=== PATIENT | female | born 1970 | race Caucasian/White ===

== ENCOUNTER → 2016-09-13 | Outpatient (CLI) | payer MEDICARE, MEDICAID ==
[~2016-09-13] MED LIST: /HCTZ25TA PO; /PANT40TA PO; ASPI81TA7 PO; AZAT50TA PO; CETI10TA PO; CITA10TA2 PO; DILA2TAB PO; FEXO60CA PO; KETO10TAB PO; LEVO500T PO; LEVO50TA4 PO; NORT50CA PO; OMEP20CA3 PO; PAME25CA PO; PLAQ200T PO; POTA20TA4 PO; PRED5TAB PO; PROP40TA7 PO; TYLE325T5 PO; VITATAB74 PO; ZIAC2.5T PO
[2016-09-13 16:06] LABS: BASO % 0.2 % (0.0-1.0); EOS # 0.1 K/mm3 (0.0-0.50); EOS % 2.9 % (0.0-3.0); LYMPH # 1.1 K/mm3 (1.5-4.5); MEAN CORPUSCULAR HEMOGLOBIN 27.7 pg (27.0-33.0); MEAN CORPUSCULAR HGB CONC 33.6 g/dl (32.0-36.5); MEAN CORPUSCULAR VOLUME 82.5 fl (80.0-96.0); MONO # 0.3 K/mm3 (0.0-0.8); MONO % 6.2 % (0.0-5.0); NEUTROPHILS # 3.4 K/mm3 (1.8-7.7); RED CELL DISTRIBUTION WIDTH 13.4 % (11.5-14.5); WHITE BLOOD COUNT 4.9 K/mm3 (4.0-10.0)
== END ==
LOC: M LAB 15:31
PROVIDERS: ATTEND Internal Medicine
DX: M32.9 Systemic lupus erythematosus, unspecified (principal)

== ENCOUNTER → 2016-11-08 | Outpatient (CLI) | payer MEDICARE, MEDICAID ==
[~2016-11-08] MED LIST changes: +ISOVUE-370 76% 100ML VIAL (Q9967) As Ordered ONE
--- NOTE | 2016-11-08 16:28 | REP ---
CT LEFT THIGH WITH CONTRAST: 11/08/2016: Clinical history: The patient states fairly large soft palpable lump left mid thigh, a second medial to the region just above the knee. Technique: The patient received a bolus of 100 mL as of Isovue-370 scanning from acetabular roof to the tibial plateau. Bone and soft tissue windows presented and coronal and sagittal reconstructions in both windows also reviewed. Findings: Subcutaneous fat layer in the mid thigh anteriorly is much thicker than above and below the mid thigh and can be seen on the sagittal reconstructions. There is no definable encapsulated lipoma. Similarly there is asymmetric increased thickening of the subcutaneous fat layer in the distal thigh medial to the femur which also does not show definite capsule. There is a small joint effusion at the knee. There is some degenerative changes and patellar subluxation by a few millimeters laterally at the knee. The hip also shows some mild degenerative change with a small rim osteophyte femoral head and acetabular roof. No subchondral cystic change or AVN. No fracture or destructive lesion of bone. Anterior posterior musculature showed no mass or hematoma. No abnormal fluid collection in the buttocks and thigh musculature. No adenopathy in the inguinal region. No abnormal enhancement of soft tissues or evidence of an abscess/fluid collection. Impression: 1. There is no CT evidence of a definable encapsulated lipoma but the thickening of the subcutaneous soft tissues in the mid anterior thigh with a thicker fat layer centrally then above and below it and also in the distal thigh medial just above the knee with the same phenomenon is noted. It is well known that there may be an infiltrative type lipoma may be palpable but not discernible by imaging. Please correlate clinically. 2. No fluid collection, mass in the anterior posterior compartment musculature of the thigh, buttocks or hip and no bony abnormality. Signed by Malick Matthews MD 11/08/2016 05:24 P
== END ==
LOC: M RAD 13:09
PROVIDERS: ATTEND Surgery
DX: R22.42 Localized swelling, mass and lump, left lower limb (principal)
CPT/HCPCS: 73701; Q9967

== ENCOUNTER → 2017-05-05 | Outpatient (REF) | payer MEDICARE, MEDICAID ==
[~2017-05-05] MED LIST changes: -ISOVUE-370 76% 100ML VIAL (Q9967) As Ordered ONE
[2017-05-05 13:36] LABS: CREATININE FOR GFR 0.87 MG/DL (0.55-1.02); GLOMERULAR FILTRATION RATE > 60.0 (>58)
== END ==
LOC: M LABDRAW1 10:55
PROVIDERS: ATTEND Internal Medicine
DX: M32.9 Systemic lupus erythematosus, unspecified (principal)

== ENCOUNTER 2017-06-22 12:30 | Outpatient (RCR) | payer MEDICARE, MEDICAID | END 2017-06-30 | LOC: M PT 12:30 | PROVIDERS: ATTEND Orthopaedic Surgery | DX: M25.572 Pain in left ankle and joints of left foot (principal); M79.672 Pain in left foot; M76.822 Posterior tibial tendinitis, left leg | CPT/HCPCS: 97110; 97140; 97161; G0283; G8978; G8979 ==

== ENCOUNTER → 2017-08-15 | Outpatient (CLI) | payer MEDICARE, MEDICAID | LOC: M WHC 13:01 | DX: Z12.31 Encounter for screening mammogram for malignant neoplasm of breast (principal) | CPT/HCPCS: 77067 ==

== ENCOUNTER → 2017-09-09 | Outpatient (REF) | payer MEDICARE, MEDICAID | LOC: M SFHCLERA 18:01 | DX: J02.9 Acute pharyngitis, unspecified (principal) ==

== ENCOUNTER 2018-01-23 09:12 | Inpatient (IN) | payer MEDICARE, MEDICAID ==
[2018-01-23 10:00] LABS: BASO % 0.2 % (0.0-1.0); EOS # 0.1 10^3/uL (0.0-0.50); EOS % 2.8 % (0.0-3.0); HEMATOCRIT 36.8 % (36.0-47.0); HEMOGLOBIN 12.3 g/dl (12.0-15.5); IMMATURE GRANULOCYTE % 0.4 % (0-3.0); LYMPH # 0.7 10^3/uL (1.5-4.5); LYMPH % 14.6 % (24.0-44.0); MEAN CORPUSCULAR HEMOGLOBIN 27.1 pg (27.0-33.0); MEAN CORPUSCULAR HGB CONC 33.4 g/dl (32.0-36.5); MEAN CORPUSCULAR VOLUME 81.1 fl (80.0-96.0); MONO # 0.3 10^3/uL (0.0-0.8); NEUTROPHILS # 3.4 10^3/uL (1.8-7.7); PLATELET COUNT, AUTOMATED 145 10^3/uL (150-450); RED BLOOD COUNT 4.54 10^6/uL (4.00-5.40); RED CELL DISTRIBUTION WIDTH 13.4 % (11.5-14.5); WHITE BLOOD COUNT 4.6 10^3/uL (4.0-10.0)
[2018-01-23 10:14] LABS: INR 0.98; PROTHROMBIN TIME 13.1 SECONDS (12.4-14.5)
[2018-01-23 10:15] LABS: PARTIAL THROMBOPLASTIN TIME 29.9 SECONDS (26.8-37.9)
[2018-01-23 10:31] LABS: ALBUMIN 3.2 GM/DL (3.2-5.2); ALBUMIN/GLOBULIN RATIO 0.73 (1.00-1.93); ALKALINE PHOSPHATASE 52 U/L (45-117); ALT/SGPT 23 U/L (12-78); ANION GAP 7 MEQ/L (8-16); AST/SGOT 21 U/L (7-37); BILIRUBIN,DIRECT 0.1 MG/DL (0.0-0.2); BILIRUBIN,TOTAL 0.4 MG/DL (0.2-1.0); BLOOD UREA NITROGEN 11 MG/DL (7-18); CALCIUM LEVEL 8.5 MG/DL (8.5-10.1); CARBON DIOXIDE LEVEL 30 MEQ/L (21-32); CHLORIDE LEVEL 105 MEQ/L (98-107); CPK CREATINE PHOSPHOKINASE 58 U/L (26-192); FREE T4 1.31 NG/DL (0.76-1.46); GLOMERULAR FILTRATION RATE > 60.0 (>58); GLUCOSE, FASTING 87 MG/DL (70-100); LIPASE 94 U/L (73-393); POTASSIUM SERUM 3.5 MEQ/L (3.5-5.1); SODIUM LEVEL 142 MEQ/L (136-145); TOTAL PROTEIN 7.6 GM/DL (6.4-8.2); TROPONIN I < 0.02 NG/ML (< 0.10)
[2018-01-23 10:37] LABS: CK-MB VALUE MASS < 1.0 NG/ML (<3.6); MB/CK RELATIVE INDEX 1.72 (< OR =4)
[2018-01-23] MEDS: ASPIRIN 81 MG CHEW TABLET PO (12:31)
[2018-01-23] MEDS: NITROGLYCERIN 0.4 MG SUBL TABLET SL (12:32)
[2018-01-23] MEDS ORDERED: ISOVUE-370 76% 100ML VIAL (Q9967) As Ordered (12:41)
[2018-01-23] MEDS: MORPHINE 4 MG/ML 1ML VIAL/SYRINGE (J2270) IV (13:15)
[2018-01-23 14:13] LABS: CK-MB VALUE MASS < 1.0 NG/ML (<3.6); CPK CREATINE PHOSPHOKINASE 55 U/L (26-192); MB/CK RELATIVE INDEX 1.81 (< OR =4); TROPONIN I < 0.02 NG/ML (< 0.10)
[2018-01-23] MEDS ORDERED: BISACODYL 5 MG TAB PO (16:00)
[2018-01-23] MEDS ORDERED: BISACODYL 10 MG SUPP PR (16:00)
[2018-01-23] MEDS ORDERED: IPRATROPIUM 0.5MG/ALBUTEROL 2.5MG INH SOL UD 3ML (DUONEB)(J7620) NEB (16:00)
[2018-01-23] MEDS: PERCOCET 5MG/325MG TAB PO (16:13)
[2018-01-23 16:44] LABS: FREE THYROXINE INDEX 3.8 % (1.3-4.8); T UPTAKE 31 % (30-39); THYROXINE (T4) 12.2 UG/DL (4.5-12.0)
[2018-01-23] MEDS: ENOXAPARIN 150 MG/ML SYR (J1650) SC ×2 (18:19→20:26)
[2018-01-23] MEDS: ONDANSETRON 4MG/2ML VIAL (J2405) IV (20:10)
[2018-01-23] MEDS: WARFARIN SOD 5 MG TAB PO (21:15)
[2018-01-23] MEDS: raNITIdine SYRUP 150 MG/10 ML UDC PO (21:15)
[2018-01-23] MEDS: HYDROXYCHLOROQUINE 200 MG TAB PO (21:16)
[2018-01-23 21:48] LABS: CPK CREATINE PHOSPHOKINASE 51 U/L (26-192); TROPONIN I < 0.02 NG/ML (< 0.10)
[2018-01-23 21:49] LABS: CK-MB VALUE MASS < 1.0 NG/ML (<3.6); MB/CK RELATIVE INDEX 1.96 (< OR =4)
[2018-01-23] MEDS: ACETAMINOPHEN 500 MG TAB PO (22:54)
[2018-01-23] MEDS: FAMOTIDINE 20 MG TAB PO (23:52)
[2018-01-24] MEDS: LEVOTHYROXINE 75MCG TABLET (0.075MG) PO (06:41)
[2018-01-24 07:18] LABS: BASO % 0.4 % (0.0-1.0); EOS # 0.1 10^3/uL (0.0-0.50); EOS % 5.1 % (0.0-3.0); HEMATOCRIT 35.3 % (36.0-47.0); HEMOGLOBIN 11.7 g/dl (12.0-15.5); IMMATURE GRANULOCYTE % 0.7 % (0-3.0); LYMPH # 0.6 10^3/uL (1.5-4.5); MEAN CORPUSCULAR HEMOGLOBIN 27.1 pg (27.0-33.0); MEAN CORPUSCULAR HGB CONC 33.1 g/dl (32.0-36.5); MEAN CORPUSCULAR VOLUME 81.7 fl (80.0-96.0); MONO # 0.3 10^3/uL (0.0-0.8); MONO % 12.1 % (0.0-5.0); NEUTROPHILS # 1.6 10^3/uL (1.8-7.7); NEUTROPHILS % 59.7 % (36.0-66.0); PLATELET COUNT, AUTOMATED 141 10^3/uL (150-450); RED BLOOD COUNT 4.32 10^6/uL (4.00-5.40); RED CELL DISTRIBUTION WIDTH 13.4 % (11.5-14.5); WHITE BLOOD COUNT 2.7 10^3/uL (4.0-10.0)
[2018-01-24 07:30] LABS: INR 1.04; PROTHROMBIN TIME 13.7 SECONDS (12.4-14.5)
[2018-01-24 07:50] LABS: ALBUMIN/GLOBULIN RATIO 0.73 (1.00-1.93); ALKALINE PHOSPHATASE 98 U/L (45-117); ALT/SGPT 57 U/L (12-78); ANION GAP 8 MEQ/L (8-16); AST/SGOT 87 U/L (7-37); BILIRUBIN,TOTAL 0.8 MG/DL (0.2-1.0); BLOOD UREA NITROGEN 12 MG/DL (7-18); CALCIUM LEVEL 8.1 MG/DL (8.5-10.1); CARBON DIOXIDE LEVEL 29 MEQ/L (21-32); CHLORIDE LEVEL 105 MEQ/L (98-107); CREATININE FOR GFR 0.82 MG/DL (0.55-1.30); GLOMERULAR FILTRATION RATE > 60.0 (>58); GLUCOSE, FASTING 88 MG/DL (70-100); MAGNESIUM LEVEL 2.1 MG/DL (1.8-2.4); POTASSIUM SERUM 3.6 MEQ/L (3.5-5.1); SODIUM LEVEL 142 MEQ/L (136-145); TOTAL PROTEIN 7.1 GM/DL (6.4-8.2)
[2018-01-24] MEDS: ASPIRIN 81 MG ENTERIC TAB PO (08:25)
[2018-01-24] MEDS: FAMOTIDINE 20 MG TAB PO ×2 (08:25→22:00)
[2018-01-24] MEDS: predniSONE 1 MG TAB PO (08:25)
[2018-01-24] MEDS: HYDROXYCHLOROQUINE 200 MG TAB PO ×2 (08:25→22:00)
[2018-01-24] MEDS: ENOXAPARIN 150 MG/ML SYR (J1650) SC ×2 (08:26→22:00)
[2018-01-24] MEDS: ACETAMINOPHEN 500 MG TAB PO (10:12)
[2018-01-24] MEDS: WARFARIN SOD 5 MG TAB PO (17:30)
[2018-01-25 06:14] LABS: HEMATOCRIT 35.2 % (36.0-47.0); HEMOGLOBIN 11.6 g/dl (12.0-15.5); MEAN CORPUSCULAR HEMOGLOBIN 26.6 pg (27.0-33.0); MEAN CORPUSCULAR VOLUME 80.7 fl (80.0-96.0); PLATELET COUNT, AUTOMATED 145 10^3/uL (150-450); RED BLOOD COUNT 4.36 10^6/uL (4.00-5.40); RED CELL DISTRIBUTION WIDTH 13.2 % (11.5-14.5)
[2018-01-25] MEDS: LEVOTHYROXINE 75MCG TABLET (0.075MG) PO (06:25)
[2018-01-25 06:29] LABS: ANION GAP 7 MEQ/L (8-16); BLOOD UREA NITROGEN 12 MG/DL (7-18); CALCIUM LEVEL 8.1 MG/DL (8.5-10.1); CARBON DIOXIDE LEVEL 29 MEQ/L (21-32); CHLORIDE LEVEL 107 MEQ/L (98-107); CREATININE FOR GFR 0.92 MG/DL (0.55-1.30); GLOMERULAR FILTRATION RATE > 60.0 (>58); GLUCOSE, FASTING 90 MG/DL (70-100); POTASSIUM SERUM 3.6 MEQ/L (3.5-5.1); SODIUM LEVEL 143 MEQ/L (136-145)
[2018-01-25 06:44] LABS: INR 1.29; PROTHROMBIN TIME 16.4 SECONDS (12.4-14.5)
[2018-01-25] MEDS: predniSONE 1 MG TAB PO (08:42)
[2018-01-25] MEDS: FAMOTIDINE 20 MG TAB PO (08:42)
[2018-01-25] MEDS: ASPIRIN 81 MG ENTERIC TAB PO (08:42)
[2018-01-25] MEDS: HYDROXYCHLOROQUINE 200 MG TAB PO (08:42)
[2018-01-25] MEDS: ENOXAPARIN 150 MG/ML SYR (J1650) SC (08:43)
[2018-01-25 09:49] LABS: AMORPHOUS SEDIMENT SMALL (NEGATIVE); APPEARANCE, URINE CLEAR (CLEAR); BACTERIA, URINE AUTO 1+ (NEGATIVE); BILIRUBIN, URINE AUTO NEGATIVE (NEGATIVE); BLOOD, URINE BLOOD NEGATIVE (NEGATIVE); COLOR, URINE STRAW (YELLOW); GLUCOSE, URINE (UA) AUTO NEGATIVE (NEGATIVE); KETONE, URINE AUTO NEGATIVE (NEGATIVE); LEUKOCYTE ESTERASE, URINE AUTO 1+ (NEGATIVE); NITRITE, URINE AUTO NEGATIVE (NEGATIVE); PROTEIN, URINE AUTO NEGATIVE (NEGATIVE); RBC, URINE AUTO 1 /HPF (0-3); SPECIFIC GRAVITY URINE AUTO 1.004 (1.002-1.035); SQUAMOUS EPITHELIAL CELL UR AU 1 /HPF (0-6); UROBILINOGEN, URINE AUTO 0.2 mg/dL (0.0-2.0); WBC, URINE AUTO 6 /HPF (0-3)
[2018-01-25 10:02] LABS: CREATININE,RANDOM URINE 42.5 MG/DL
== END 2018-01-25 13:10 | disposition home or self-care (01) | DRG 176 ==
LOC: M MSPAV 01-24 14:20 → M ED 09:12 → M ED INP 15:58
DX: I26.99 Other pulmonary embolism without acute cor pulmonale (principal); Z68.42 Body mass index [BMI] 45.0-49.9, adult; M32.9 Systemic lupus erythematosus, unspecified; I10 Essential (primary) hypertension; E66.01 Morbid (severe) obesity due to excess calories; K21.9 Gastro-esophageal reflux disease without esophagitis; G47.33 Obstructive sleep apnea (adult) (pediatric); E03.9 Hypothyroidism, unspecified; Z79.52 Long term (current) use of systemic steroids; G43.909 Migraine, unspecified, not intractable, without status migrainosus; F32.9 Major depressive disorder, single episode, unspecified; Z88.1 Allergy status to other antibiotic agents; Z88.8 Allergy status to other drugs, medicaments and biological substances; Z79.82 Long term (current) use of aspirin; Z79.899 Other long term (current) drug therapy

== ENCOUNTER → 2018-01-27 | Outpatient (CLI) | payer MEDICARE, MEDICAID ==
[2018-01-27 10:10] LABS: INR 1.57
== END ==
LOC: M LAB 09:17
DX: Z51.81 Encounter for therapeutic drug level monitoring (principal); Z79.01 Long term (current) use of anticoagulants
CPT/HCPCS: 85610

== ENCOUNTER 2018-05-18 20:10 | Emergency (ER) | payer MEDICARE, MEDICAID ==
[2018-05-18 21:50] LABS: BEDSIDE GLUCOSE 96 MG/DL (70-105)
[2018-05-18 22:09] LABS: INR 2.07; PROTHROMBIN TIME 23.7 SECONDS (12.1-14.4)
[2018-05-18 22:10] LABS: PARTIAL THROMBOPLASTIN TIME 37.9 SECONDS (25.4-37.6)
[2018-05-18 22:13] LABS: ANION GAP 11 MEQ/L (8-16); BLOOD UREA NITROGEN 14 MG/DL (7-18); CALCIUM LEVEL 8.3 MG/DL (8.5-10.1); CARBON DIOXIDE LEVEL 24 MEQ/L (21-32); CHLORIDE LEVEL 101 MEQ/L (98-107); CREATININE FOR GFR 0.76 MG/DL (0.55-1.30); GLOMERULAR FILTRATION RATE > 60.0 (>58); GLUCOSE, FASTING 88 MG/DL (70-100); POTASSIUM SERUM 3.8 MEQ/L (3.5-5.1); SODIUM LEVEL 136 MEQ/L (136-145)
[2018-05-18 22:15] LABS: BASO % 0.4 % (0.0-1.0); EOS % 0.9 % (0.0-3.0); HEMATOCRIT 39.1 % (36.0-47.0); HEMOGLOBIN 12.8 g/dl (12.0-15.5); IMMATURE GRANULOCYTE % 0.2 % (0-3.0); LYMPH # 0.7 10^3/uL (1.5-4.5); LYMPH % 14.3 % (24.0-44.0); MEAN CORPUSCULAR HEMOGLOBIN 26.2 pg (27.0-33.0); MEAN CORPUSCULAR HGB CONC 32.7 g/dl (32.0-36.5); MONO # 0.3 10^3/uL (0.0-0.8); MONO % 6.3 % (0.0-5.0); NEUTROPHILS # 3.6 10^3/uL (1.8-7.7); NEUTROPHILS % 77.9 % (36.0-66.0); PLATELET COUNT, AUTOMATED 157 10^3/uL (150-450); RED BLOOD COUNT 4.89 10^6/uL (4.00-5.40); WHITE BLOOD COUNT 4.6 10^3/uL (4.0-10.0)
[2018-05-18] MEDS: NS 500 ML IV (22:16)
[2018-05-18] MEDS: HALOPERIDOL 5 MG/ML VIAL (J1630) IV (22:16)
[2018-05-18] MEDS: diphenhydrAMINE INJ 50MG/ML VIAL (J1200) IV (22:16)
[2018-05-18] MEDS: dexameTHASONE 20 MG/5 ML VIAL (J1100) IV (22:16)
[2018-05-19] MEDS: MECLIZINE 25 MG TABLET PO (02:52)
== END 2018-05-19 03:24 | disposition home or self-care (01) ==
LOC: M ED 05-19 03:24
DX: R42 Dizziness and giddiness (principal); I10 Essential (primary) hypertension; M32.14 Glomerular disease in systemic lupus erythematosus; E03.9 Hypothyroidism, unspecified; K21.9 Gastro-esophageal reflux disease without esophagitis; E66.9 Obesity, unspecified; F33.9 Major depressive disorder, recurrent, unspecified; Z86.69 Personal history of other diseases of the nervous system and sense organs; Z86.79 Personal history of other diseases of the circulatory system; Z88.1 Allergy status to other antibiotic agents; Z88.8 Allergy status to other drugs, medicaments and biological substances; Z88.5 Allergy status to narcotic agent; Z79.01 Long term (current) use of anticoagulants
CPT/HCPCS: J1200

== ENCOUNTER → 2018-06-12 | Outpatient (CLI) | payer MEDICARE, MEDICAID ==
[2018-06-12 12:44] LABS: BASO % 0.3 % (0.0-1.0); EOS # 0.1 10^3/uL (0.0-0.50); EOS % 4.2 % (0.0-3.0); HEMATOCRIT 39.7 % (36.0-47.0); HEMOGLOBIN 12.8 g/dl (12.0-15.5); IMMATURE GRANULOCYTE % 0.3 % (0-3.0); LYMPH # 0.8 10^3/uL (1.5-4.5); LYMPH % 24.3 % (24.0-44.0); MEAN CORPUSCULAR HEMOGLOBIN 26.8 pg (27.0-33.0); MEAN CORPUSCULAR HGB CONC 32.2 g/dl (32.0-36.5); MEAN CORPUSCULAR VOLUME 83.1 fl (80.0-96.0); MONO # 0.3 10^3/uL (0.0-0.8); MONO % 8.7 % (0.0-5.0); NEUTROPHILS # 2.1 10^3/uL (1.8-7.7); NEUTROPHILS % 62.2 % (36.0-66.0); PLATELET COUNT, AUTOMATED 133 10^3/uL (150-450); RED BLOOD COUNT 4.78 10^6/uL (4.00-5.40); RED CELL DISTRIBUTION WIDTH 14.5 % (11.5-14.5); WHITE BLOOD COUNT 3.3 10^3/uL (4.0-10.0)
== END ==
LOC: M LAB 12:07
DX: Z51.81 Encounter for therapeutic drug level monitoring (principal); Z79.899 Other long term (current) drug therapy
CPT/HCPCS: 85027

== ENCOUNTER → 2018-06-29 | Outpatient (CLI) | payer MEDICARE, MEDICAID ==
[2018-06-29 13:41] LABS: ALBUMIN 3.4 GM/DL (3.2-5.2); ALBUMIN/GLOBULIN RATIO 0.85 (1.00-1.93); ALKALINE PHOSPHATASE 90 U/L (45-117); ALT/SGPT 31 U/L (12-78); AST/SGOT 19 U/L (7-37); BILIRUBIN,DIRECT 0.1 MG/DL (0.0-0.2); BILIRUBIN,TOTAL 0.3 MG/DL (0.2-1.0); TOTAL PROTEIN 7.4 GM/DL (6.4-8.2)
== END ==
LOC: M LAB 12:13
DX: R79.89 Other specified abnormal findings of blood chemistry (principal)
CPT/HCPCS: 80076

== ENCOUNTER → 2018-07-18 | Outpatient (REF) | payer MEDICARE, MEDICAID ==
[~2018-07-18] MED LIST changes: +BISO5TAB2 PO; +CALC1TAB55 PO; +COUM1TAB17 PO; +FISH1000 PO; +HYDR200T3; +LEVO100T54 PO; +LOVE0.8I3 SC; +MECL-68 PO; +POTA10TA67 PO; +PRED1TABL PO; +WARF-21 PO; +WARF-22 PO
== END ==
LOC: M LAB REF 09:06
PROVIDERS: ATTEND Internal Medicine
DX: R19.5 Other fecal abnormalities (principal)

== ENCOUNTER → 2018-09-12 | Outpatient (CLI) | payer MEDICARE, MEDICAID ==
[~2018-09-12] MED LIST changes: +ISOVUE-370 76% 100ML VIAL (Q9967) As Ordered ONE
[2018-09-12 12:48] LABS: ALBUMIN 3.5 GM/DL (3.2-5.2); ALT/SGPT 20 U/L (12-78); BILIRUBIN,TOTAL 0.4 MG/DL (0.2-1.0); BLOOD UREA NITROGEN 15 MG/DL (7-18); CALCIUM LEVEL 8.7 MG/DL (8.5-10.1); CARBON DIOXIDE LEVEL 29 MEQ/L (21-32); CHLORIDE LEVEL 106 MEQ/L (98-107); CREATININE FOR GFR 0.78 MG/DL (0.55-1.30); GLOMERULAR FILTRATION RATE > 60.0 (>58); GLUCOSE, FASTING 87 MG/DL (70-100); POTASSIUM SERUM 3.8 MEQ/L (3.5-5.1); SODIUM LEVEL 139 MEQ/L (136-145); TOTAL PROTEIN 7.7 GM/DL (6.4-8.2)
--- NOTE | 2018-09-12 14:40 | REP ---
CT ANGIO HEAD: HISTORY: Cerebral aneurysm. CONTRAST: Isovue-370 75 mL. COMPARISON: MRA 05/19/2018. A small 5 mm aneurysm is present at the right middle cerebral artery trifurcation. This is better seen in the previous MRA examination. The aneurysm is unchanged in size. There is no new aneurysm or arteriovenous malformation. There are no atherosclerotic lesions. Major intracranial vessels are patent. The left vertebral artery is dominant. The right vertebral artery terminates in the right posterior inferior cerebellar artery. The deep venous system and dural sinuses are patent. 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 This is better seen in the previous MRA examination. Electronically Signed by Yovany Santillan MD 09/12/2018 02:45 P
== END ==
LOC: M RAD 11:35
DX: I67.1 Cerebral aneurysm, nonruptured (principal)
CPT/HCPCS: 36415; 70496; 80053; Q9967

== ENCOUNTER → 2018-10-17 | Outpatient (CLI) | payer MEDICARE, MEDICAID ==
[~2018-10-17] MED LIST changes: -ISOVUE-370 76% 100ML VIAL (Q9967) As Ordered ONE
[2018-10-20 14:44] LABS: PR3 ANTIPROTEINASE ANTIBODIES <3.5 U/mL (0.0-3.5)
== END ==
LOC: M LRY 12:06
PROVIDERS: ATTEND Internal Medicine
DX: M32.9 Systemic lupus erythematosus, unspecified (principal)

== ENCOUNTER → 2018-11-14 | Outpatient (REF) | payer MEDICARE, MEDICAID ==
[~2018-11-14] MED LIST changes: -/HCTZ25TA PO; -/PANT40TA PO; -AZAT50TA PO; +AZAT50TA24 PO; +HYDR-3644 PO; +PROT1TAB2 PO
== END ==
LOC: M LAB REF 09:11
PROVIDERS: ATTEND Internal Medicine
DX: R19.5 Other fecal abnormalities (principal)

== ENCOUNTER → 2018-12-14 | Outpatient (CLI) | payer MEDICARE, MEDICAID ==
[~2018-12-14] MED LIST changes: +PROHANCE 279.3MG/ML 15ML VIAL (A9576) As Ordered ONE; +PROHANCE 279.3MG/ML 5ML VIAL (A9576) As Ordered ONE
--- NOTE | 2018-12-14 19:41 | REP ---
MR LUMBAR SPINE WITHOUT AND WITH CONTRAST: HISTORY: Paresthesias. CONTRAST: ProHance 20 mL. Decreased signal intensity on T2-weighted images is present in the L3-4 through L5-S1 intervertebral discs. The L3-4 intervertebral disc is decreased in height. These findings are consistent with disc degeneration. There is no disc bulge or herniation at the L1-2 level, L2-3, and L5-S1 levels. There is hypertrophy of the posterior articulating facets at the L5-S1 level. The nerves exit the neural foramina without compression. A diffuse disc bulge is present at the L3-4 level. There is minimal compression of the thecal sac. There is hypertrophy of the posterior articulating facets. The L3 nerves exit the neural foramina without compression. A diffuse disc bulge is present at the L4-5 level. There is minimal compression of the thecal sac. There is hypertrophy of the posterior articulating facets. The L4 nerves exit the neural foramina without compression. The conus medullaris is normal in appearance terminating at the level of the T12-L1 intervertebral disc . Normal signal intensity is present in the lumbar vertebral bodies. IMPRESSION: Diffuse disc bulges at the L3-4 and L4-5 levels with minimal thecal sac compression. Electronically Signed by Yovany Santillan MD 12/15/2018 08:15 A
== END ==
LOC: M RAD 17:23
PROVIDERS: ATTEND Psychiatry & Neurology Neurology
DX: M51.26 Other intervertebral disc displacement, lumbar region (principal)
CPT/HCPCS: 72158; A9576

== ENCOUNTER → 2019-01-08 | Outpatient (CLI) | payer MEDICARE, MEDICAID ==
[~2019-01-08] MED LIST changes: -PROHANCE 279.3MG/ML 15ML VIAL (A9576) As Ordered ONE; -PROHANCE 279.3MG/ML 5ML VIAL (A9576) As Ordered ONE
--- NOTE | 2019-01-08 18:24 | REP ---
Soft-tissue neck ultrasound: Thyroid sonography. History: Neck swelling, submandibular lumps. Findings: High-resolution bilateral thyroid sonography is performed. Thyroid isthmus is normal measuring 0.2 cm. Right lobe dimensions are 4.7 x 1.5 x 1.6 cm. Left thyroid lobe dimensions of 3.9 x 1.7 x 1.3 centimeters. There is a 0.2 cm cyst in each lobe of the thyroid. Thyroid glandular texture is otherwise homogeneous. No thyroid abnormality is seen. Multiple lymph nodes are seen adjacent to the submandibular glands in the neck bilaterally. The largest of these on the left measures 0.8 x 0.5 x 0.6 cm. On the right the largest lymph node measures 1.6 x 1.6 x 0.6 cm. This lymph node is borderline. The others are normal in size and appearance. Impression: There is a right submandibular lymph node which is at the upper range of normal in size. Otherwise normal thyroid and soft-tissue neck sonography. Electronically Signed by Nick Aguilar MD 01/08/2019 06:36 P
== END ==
LOC: M RAD 15:24
PROVIDERS: ATTEND Internal Medicine
DX: R59.0 Localized enlarged lymph nodes (principal)

== ENCOUNTER → 2019-01-19 | Outpatient (CLI) | payer MEDICARE, MEDICAID ==
[2019-01-19 20:22] LABS: INR 2.08; PROTHROMBIN TIME 23.2 SECONDS (11.8-14.0)
== END ==
LOC: M LRY 17:04
PROVIDERS: ATTEND Physician Assistant
DX: Z86.711 Personal history of pulmonary embolism (principal); Z79.01 Long term (current) use of anticoagulants

== ENCOUNTER → 2019-01-27 | Outpatient (CLI) | payer MEDICARE, MEDICAID ==
[2019-01-27 19:35] LABS: INR 2.79; PROTHROMBIN TIME 29.3 SECONDS (11.8-14.0)
== END ==
LOC: M LRY 14:00
PROVIDERS: ATTEND Physician Assistant
DX: Z86.711 Personal history of pulmonary embolism (principal)

== ENCOUNTER → 2019-02-06 | Outpatient (CLI) | payer MEDICARE, MEDICAID ==
[~2019-02-06] MED LIST changes: +AZIT-12 PO
[2019-02-06 11:53] LABS: INR 1.65; PARTIAL THROMBOPLASTIN TIME 34.7 SECONDS (25.0-38.4); PROTHROMBIN TIME 19.3 SECONDS (11.8-14.0)
[2019-02-07 10:21] LABS: PTT LUPUS TYPE ANTICOAG SCREEN 1.3 (0-1.2)
[2019-02-07 10:29] LABS: DRVV CONFIRM 43.4 SEC; LUPUS CONFIRM RATIO 1.1
[2019-02-07 10:33] LABS: NORMALIZED RATIO 1.18 (0.00-1.20)
[2019-02-08 08:07] LABS: BETA-2 GLYCOPROTEIN I ABY IGA <9 (0-25); BETA-2 GLYCOPROTEIN I ABY IGG <9 (0-20); BETA-2 GLYCOPROTEIN I ABY IGM <9 (0-32); CARDIOLIPIN IGA ANTIBODY <9 APL U/mL (0-11); CARDIOLIPIN IGG ANTIBODY <9 GPL U/mL (0-14); CARDIOLIPIN IGM ANTIBODY 14 MPL U/mL (0-12)
== END ==
LOC: M LRY 09:59
PROVIDERS: ATTEND Internal Medicine Hematology & Oncology
DX: Z79.01 Long term (current) use of anticoagulants (principal)

== ENCOUNTER → 2019-02-11 | Outpatient (CLI) | payer MEDICARE, MEDICAID ==
[~2019-02-11] MED LIST changes: +BENL200I; +CEFD1CAP8 PO; +COUM10TA PO; +FAMO40TA3 PO; +K 10100T PO; +LISI10TA15; +MACR100C43 PO; +MAGN400C2 PO; -MECL-68 PO; +MECL1TAB31 PO; +MUCI1TAB16 PO; +PRED20TA PO; +PRED25TA; +SULF1TAB93 PO; +VITA100T98 PO
[2019-02-11 12:33] LABS: INR 1.74; PROTHROMBIN TIME 20.1 SECONDS (11.8-14.0)
== END ==
LOC: M LAB 11:46
PROVIDERS: ATTEND Internal Medicine Hematology & Oncology
DX: Z79.01 Long term (current) use of anticoagulants (principal)

== ENCOUNTER 2019-02-16 00:33 | Emergency (ER) | payer MEDICARE, MEDICAID ==
[~2019-02-16] VITALS: Ht 170.2 cm; Wt 135.9 kg
[~2019-02-16 00:33] MED LIST changes: -AZIT-12 PO; -BENL200I; -CEFD1CAP8 PO; -COUM10TA PO; -FAMO40TA3 PO; -K 10100T PO; -LISI10TA15; -MACR100C43 PO; -MAGN400C2 PO; +MECL-68 PO; -MECL1TAB31 PO; -MUCI1TAB16 PO; -PRED20TA PO; -PRED25TA; -SULF1TAB93 PO; -VITA100T98 PO
[2019-02-16 03:43] LABS: HEMATOCRIT 42.5 % (36.0-47.0); HEMOGLOBIN 13.8 g/dl (12.0-15.5); MEAN CORPUSCULAR HGB CONC 32.5 g/dl (32.0-36.5); PLATELET COUNT, AUTOMATED 140 10^3/uL (150-450); RED BLOOD COUNT 5.12 10^6/uL (4.00-5.40); WHITE BLOOD COUNT 4.9 10^3/uL (4.0-10.0)
[2019-02-16 03:56] LABS: HCG, SERUM QUALITATIVE NEGATIVE (NEGATIVE)
[2019-02-16 04:07] LABS: ALBUMIN 3.5 GM/DL (3.2-5.2); ALT/SGPT 18 U/L (12-78); BILIRUBIN,TOTAL 0.5 MG/DL (0.2-1.0); BLOOD UREA NITROGEN 12 MG/DL (7-18); CALCIUM LEVEL 8.3 MG/DL (8.5-10.1); CARBON DIOXIDE LEVEL 26 MEQ/L (21-32); CHLORIDE LEVEL 104 MEQ/L (98-107); CREATININE FOR GFR 0.99 MG/DL (0.55-1.30); GLOMERULAR FILTRATION RATE > 60.0 (>58); GLUCOSE, FASTING 106 MG/DL (70-100); POTASSIUM SERUM 3.9 MEQ/L (3.5-5.1); SODIUM LEVEL 138 MEQ/L (136-145)
[2019-02-16 05:13] LABS: LIPASE 112 U/L (73-393)
[2019-02-16 06:34] LABS: INR 1.45; PROTHROMBIN TIME 17.4 SECONDS (11.8-14.0)
[2019-02-16 06:35] LABS: PARTIAL THROMBOPLASTIN TIME 37.9 SECONDS (25.0-38.4)
[2019-02-16] MEDS ORDERED: ISOVUE-370 76% 100ML VIAL (Q9967) As Ordered ONE (06:42)
[2019-02-16 07:08] LABS: CK-MB VALUE MASS < 1.0 NG/ML (<3.6); CPK CREATINE PHOSPHOKINASE 89 U/L (26-192); MB/CK RELATIVE INDEX 1.12 (< OR =4); MYOGLOBIN 44 NG/ML (13-71); TROPONIN I < 0.02 NG/ML (< 0.10)
--- NOTE | 2019-02-16 07:25 | REPVR ---
EXAM: CT Angiography Chest With Contrast EXAM DATE/TIME: 02/16/2019 6:47 AM CLINICAL HISTORY: 49 years old, female; Right-sided chest pain; Additional info: R posterior chest pain TECHNIQUE: Imaging protocol: Axial computed tomographic angiography images of the chest with intravenous contrast using CT angiography protocol. Coronal and sagittal reformatted images were created and reviewed. 3D rendering: MIP reconstructed images were created and reviewed. Radiation optimization: All CT scans at this facility use at least one of these dose optimization techniques: automated exposure control; mA and/or kV adjustment per patient size (includes targeted exams where dose is matched to clinical indication); or iterative reconstruction. Contrast material: ISOVUE 370; Contrast volume: 100 ml; Contrast route: IV; COMPARISON: CT ANGIO CHEST 01/23/2018 12:42 PM FINDINGS: Limitations: The contrast bolus timing is not optimal for assessment of the pulmonary arteries. Pulmonary arteries: No filling defects are seen to indicate an acute pulmonary embolism. Aorta: There is no thoracic aortic aneurysm or evidence of dissection. Lungs: There is an area of consolidation and groundglass opacity in the left lower lobe posteriorly. There is mild nodular thickening of the left major fissure, increased from the prior exam. A 7 mm nodule in close proximity to the left major fissure has increased in size from 4 mm on the prior exam. Mild patchy peripheral ground glass opacity is seen posteriorly in the bilateral lower and upper lobes, which is nonspecific and similar to the prior exam. There is mild bronchial wall thickening in the right upper lobe Pleural space: There is a trace of left pleural fluid. Heart: The heart is normal in size. Gallbladder and bile ducts: There has been a cholecystectomy. Spleen: The spleen is enlarged, measuring at least 15.5 cm, but the spleen is not fully included in the [id number]. Lymph nodes: There is mild left hilar lymphadenopathy with an enlarged node measuring 10 mm in short axis. There is a mildly enlarged subcarinal lymph node measuring 11 mm in short axis. Additional smaller mediastinal lymph nodes and right hilar nodes are present, not pathologically enlarged by CT criteria. Bones/joints: Unremarkable. No acute fracture. Soft tissues: Unremarkable. IMPRESSION: 1. The contrast bolus was not optimal for assessment of the pulmonary arterial tree, but no filling defects are seen to indicate an acute pulmonary with him. 2. Consolidation posteriorly in the left lower lobe, consistent with pneumonia improved the clinical setting. 3. Increase in nodular pleural thickening at the left major fissure. Together with findings of mild hilar and mediastinal lymphadenopathy, this raises a possibility of sarcoidosis. Please correlate clinically. Short term interval followup after resolution of the current illness is recommended, to include high resolution CT imaging of the chest. 4. Nonspecific splenomegaly. Electronically signed by: Rhiannon Kramer On 02/16/2019 07:25:12 AM
--- NOTE | 2019-02-16 07:34 | REPVR ---
EXAM: CT Abdomen and Pelvis With Contrast EXAM DATE/TIME: 02/16/2019 6:47 AM CLINICAL HISTORY: 49 years old, female; Abdominal pain; Generalized; Additional info: Generalized abd pain TECHNIQUE: Imaging protocol: Axial computed tomography images of the abdomen and pelvis with intravenous contrast. Coronal and sagittal reformatted images were created and reviewed. Radiation optimization: All CT scans at this facility use at least one of these dose optimization techniques: automated exposure control; mA and/or kV adjustment per patient size (includes targeted exams where dose is matched to clinical indication); or iterative reconstruction. Contrast material: ISOVUE 370; Contrast volume: 100 ml; Contrast route: IV; COMPARISON: No relevant prior studies available. FINDINGS: Lungs: Left lower lobe consolidation is noted. Please see separate report for CT scan of the chest. Liver: There are no focal liver lesions present. Gallbladder and bile ducts: There has been a cholecystectomy. There is no biliary ductal dilation. Pancreas: The pancreas is normal with no ductal dilation. Spleen: The spleen is enlarged, measuring 17 cm in length. One peripheral capsular calcification is seen at the spleen. Adrenals: The adrenal glands are normal. Kidneys and ureters: The kidneys are normal. There are no ureteral stones or hydronephrosis. Stomach and bowel: The small bowel appears unremarkable. There is no dilation or thickening of the colon. Appendix: A normal appendix is identified. Intraperitoneal space: There is no evidence of free intraperitoneal or pelvic fluid. Vasculature: The aorta demonstrates mild atherosclerotic calcification. Lymph nodes: There are borderline enlarged bilateral external iliac lymph nodes measuring 9-10 mm in short axis. Bladder: The bladder is unremarkable. No stones identified. Reproductive: There is heterogeneous density of the uterus, likely due to fibroids. Several of the lesions are very low in density, including a 3.3 cm lesion to the right of midline with a density of 13. Curvilinear radiodense structures in the bilateral uterine cornua are noted, consistent with contraceptive devices. Bones/joints: There is facet arthropathy in the lower lumbar spine. 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 Soft tissues: There is a midline upper anterior abdominal wall hernia containing fat. IMPRESSION: 1. Nonspecific splenomegaly. 2. Borderline bilateral pelvic lymphadenopathy. 3. Low attenuation lesions in the uterus, probably fibroid uterus. However several of the lesions are very low in density, possibly cystic. Followup with pelvic ultrasound is recommended, which can be performed on a nonurgent basis unless clinically indicated sooner. Electronically signed by: Rhiannon Kramer On 02/16/2019 07:34:00 AM
[2019-02-16] MEDS ORDERED: AZITHROMYCIN 250 MG TAB PO ONE (07:45)
[2019-02-16] MEDS ORDERED: cefTRIAXone SOD 1 GM in D5W MINI-BAG PLUS 50 ML IV ONE (07:45)
[2019-02-16] MEDS ORDERED: AZIT-12 PO (07:49)
[2019-02-16 09:11] VITALS: BP 120/70
--- NOTE | 2019-02-16 20:58 | ECGEPIP ---
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
--- NOTE | 2019-02-17 19:37 | ED PDOC ---
Post-Departure Follow-Up [facility] FAXED FORMAL REPORT OF CTA CHEST AND CT AB/P FOR FU Philippe Jiemnez MD Feb 17, 2019 19:37
== END 2019-02-16 09:14 | disposition home or self-care (01) ==
LOC: M ED 00:33
DX: J18.9 Pneumonia, unspecified organism (principal); I10 Essential (primary) hypertension; K21.9 Gastro-esophageal reflux disease without esophagitis; E07.9 Disorder of thyroid, unspecified; F33.9 Major depressive disorder, recurrent, unspecified; D68.61 Antiphospholipid syndrome; M32.9 Systemic lupus erythematosus, unspecified; E66.9 Obesity, unspecified; Z86.711 Personal history of pulmonary embolism; Z79.899 Other long term (current) drug therapy; Z79.82 Long term (current) use of aspirin; Z79.01 Long term (current) use of anticoagulants; Z88.1 Allergy status to other antibiotic agents; Z88.5 Allergy status to narcotic agent; Z88.8 Allergy status to other drugs, medicaments and biological substances
CPT/HCPCS: 71275; 74177; 80053; 81001; 82550; 82553; 83690; 83874; 84484; 84703; 85027; 85610; 85730; 87086; 93005; 96365; 99284; J0696; Q9967

== ENCOUNTER → 2019-02-22 | Outpatient (CLI) | payer MEDICARE, MEDICAID ==
[~2019-02-22] MED LIST changes: +AZIT-12 PO
[2019-02-22 13:27] LABS: BASO % 0.3 % (0.0-1.0); EOS # 0.1 10^3/uL (0.0-0.50); EOS % 4.4 % (0.0-3.0); HEMATOCRIT 40.6 % (36.0-47.0); HEMOGLOBIN 13.1 g/dl (12.0-15.5); LYMPH # 0.7 10^3/uL (1.5-4.5); LYMPH % 22.8 % (24.0-44.0); MEAN CORPUSCULAR HGB CONC 32.3 g/dl (32.0-36.5); MEAN CORPUSCULAR VOLUME 83.5 fl (80.0-96.0); MONO # 0.2 10^3/uL (0.0-0.8); MONO % 6.3 % (0.0-5.0); NEUTROPHILS # 2.1 10^3/uL (1.8-7.7); NEUTROPHILS % 64.9 % (36.0-66.0); PLATELET COUNT, AUTOMATED 186 10^3/uL (150-450); RED BLOOD COUNT 4.86 10^6/uL (4.00-5.40); WHITE BLOOD COUNT 3.2 10^3/uL (4.0-10.0)
[2019-02-22 13:28] LABS: APPEARANCE, URINE HAZY (CLEAR); BACTERIA, URINE AUTO NEGATIVE (NEGATIVE); BILIRUBIN, URINE AUTO NEGATIVE (NEGATIVE); BLOOD, URINE BLOOD NEGATIVE (NEGATIVE); COLOR, URINE YELLOW (YELLOW); GLUCOSE, URINE (UA) AUTO NEGATIVE (NEGATIVE); KETONE, URINE AUTO NEGATIVE (NEGATIVE); LEUKOCYTE ESTERASE, URINE AUTO 3+ (NEGATIVE); MUCUS, URINE SMALL (NEGATIVE); NITRITE, URINE AUTO NEGATIVE (NEGATIVE); PROTEIN, URINE AUTO NEGATIVE (NEGATIVE); RBC, URINE AUTO 3 /HPF (0-3); SPECIFIC GRAVITY URINE AUTO 1.003 (1.002-1.035); SQUAMOUS EPITHELIAL CELL UR AU 2 /HPF (0-6); UROBILINOGEN, URINE AUTO 0.2 mg/dL (0.0-2.0); WBC, URINE AUTO 6 /HPF (0-3)
[2019-02-22 14:01] LABS: ALBUMIN 3.5 GM/DL (3.2-5.2); ALT/SGPT 18 U/L (12-78); BILIRUBIN,TOTAL 0.2 MG/DL (0.2-1.0); BLOOD UREA NITROGEN 10 MG/DL (7-18); C REACTIVE PROTEIN QUANTITATIV < 0.30 MG/DL (0.00-0.30); CALCIUM LEVEL 8.9 MG/DL (8.5-10.1); CARBON DIOXIDE LEVEL 32 MEQ/L (21-32); CHLORIDE LEVEL 105 MEQ/L (98-107); COMPLEMENT C3 103 MG/DL (90-180); COMPLEMENT C4 19 MG/DL (10-40); GLOMERULAR FILTRATION RATE > 60.0 (>58); GLUCOSE, FASTING 85 MG/DL (70-100); POTASSIUM SERUM 3.8 MEQ/L (3.5-5.1); SODIUM LEVEL 140 MEQ/L (136-145); TOTAL PROTEIN 7.9 GM/DL (6.4-8.2)
[2019-02-22 14:06] LABS: ERYTHROCYTE SEDIMENTATION RATE 46 mm/hr (0-20)
[2019-03-01 14:08] LABS: ANTI DS-DNA AB <1:10 titer (.); HISTOPLASMA GAL'MANNAN AG UR <0.5 (<0.5 ng/mL); HISTOPLASMOSIS ANTIBODY Negative (Neg:<1:1)
== END ==
LOC: M LAB 12:36
PROVIDERS: ATTEND Internal Medicine
DX: M32.9 Systemic lupus erythematosus, unspecified (principal); R59.0 Localized enlarged lymph nodes; R35.0 Frequency of micturition

== ENCOUNTER → 2019-02-22 | Outpatient (CLI) | payer MEDICARE, MEDICAID ==
[2019-02-22 13:46] LABS: INR 2.6; PROTHROMBIN TIME 27.7 SECONDS (11.8-14.0)
== END ==
LOC: M LAB 12:30
PROVIDERS: ATTEND Internal Medicine Hematology & Oncology
DX: Z79.01 Long term (current) use of anticoagulants (principal)

== ENCOUNTER → 2019-03-01 | Outpatient (CLI) | payer MEDICARE, MEDICAID ==
[2019-03-01 17:42] LABS: INR 3.69; PROTHROMBIN TIME 36.7 SECONDS (11.8-14.0)
== END ==
LOC: M LRY 11:15
PROVIDERS: ATTEND Internal Medicine Hematology & Oncology
DX: D72.819 Decreased white blood cell count, unspecified (principal); Z79.01 Long term (current) use of anticoagulants

== ENCOUNTER → 2019-03-01 | Outpatient (CLI) | payer MEDICARE, MEDICAID ==
[2019-03-01 17:14] LABS: BASO % 0.5 % (0.0-1.0); EOS # 0.2 10^3/uL (0.0-0.50); EOS % 4.3 % (0.0-3.0); HEMATOCRIT 39.8 % (36.0-47.0); HEMOGLOBIN 12.7 g/dl (12.0-15.5); LYMPH # 0.9 10^3/uL (1.5-4.5); LYMPH % 20.3 % (24.0-44.0); MEAN CORPUSCULAR HEMOGLOBIN 26.3 pg (27.0-33.0); MEAN CORPUSCULAR HGB CONC 31.9 g/dl (32.0-36.5); MEAN CORPUSCULAR VOLUME 82.4 fl (80.0-96.0); MONO # 0.3 10^3/uL (0.0-0.8); MONO % 8.1 % (0.0-5.0); NEUTROPHILS # 2.8 10^3/uL (1.8-7.7); NEUTROPHILS % 65.8 % (36.0-66.0); PLATELET COUNT, AUTOMATED 165 10^3/uL (150-450); RED BLOOD COUNT 4.83 10^6/uL (4.00-5.40); WHITE BLOOD COUNT 4.2 10^3/uL (4.0-10.0)
== END ==
LOC: M LRY 11:08
PROVIDERS: ATTEND Internal Medicine
DX: D72.819 Decreased white blood cell count, unspecified (principal)

== ENCOUNTER → 2019-03-08 | Outpatient (CLI) | payer MEDICARE, MEDICAID ==
[2019-03-08 20:27] LABS: INR 2.67; PROTHROMBIN TIME 28.3 SECONDS (11.8-14.0)
== END ==
LOC: M LRY 15:48
PROVIDERS: ATTEND Internal Medicine Hematology & Oncology
DX: I26.99 Other pulmonary embolism without acute cor pulmonale (principal); M32.9 Systemic lupus erythematosus, unspecified; Z79.01 Long term (current) use of anticoagulants

== ENCOUNTER → 2019-03-15 | Outpatient (CLI) | payer MEDICARE, MEDICAID ==
[2019-03-15 20:35] LABS: INR 2.42; PROTHROMBIN TIME 26.2 SECONDS (11.8-14.0)
== END ==
LOC: M LRY 15:57
PROVIDERS: ATTEND Internal Medicine Hematology & Oncology
DX: Z79.01 Long term (current) use of anticoagulants (principal); I26.99 Other pulmonary embolism without acute cor pulmonale; M32.9 Systemic lupus erythematosus, unspecified

== ENCOUNTER → 2019-03-23 | Outpatient (CLI) | payer MEDICARE, MEDICAID ==
[~2019-03-23] MED LIST changes: +BENL200I; +CEFD1CAP8 PO; +COUM10TA PO; +FAMO40TA3 PO; +K 10100T PO; +LISI10TA15; +MACR100C43 PO; +MAGN400C2 PO; -MECL-68 PO; +MECL1TAB31 PO; +MUCI1TAB16 PO; +PRED20TA PO; +PRED25TA; +SULF1TAB93 PO; +VITA100T98 PO
[2019-03-23 20:39] LABS: INR 2.37; PROTHROMBIN TIME 25.7 SECONDS (11.8-14.0)
== END ==
LOC: M LRY 16:23
PROVIDERS: ATTEND Internal Medicine Hematology & Oncology
DX: I26.99 Other pulmonary embolism without acute cor pulmonale (principal); M32.9 Systemic lupus erythematosus, unspecified; Z79.01 Long term (current) use of anticoagulants

== ENCOUNTER → 2019-04-06 | Outpatient (CLI) | payer MEDICARE, MEDICAID ==
[~2019-04-06] MED LIST changes: -BENL200I; -CEFD1CAP8 PO; -COUM10TA PO; -FAMO40TA3 PO; -K 10100T PO; -LISI10TA15; -MACR100C43 PO; -MAGN400C2 PO; +MECL-68 PO; -MECL1TAB31 PO; -MUCI1TAB16 PO; -PRED20TA PO; -PRED25TA; -SULF1TAB93 PO; -VITA100T98 PO
[2019-04-06 13:01] LABS: INR 1.14; PROTHROMBIN TIME 14.3 SECONDS (11.8-14.0)
== END ==
LOC: M LAB 11:26
PROVIDERS: ATTEND Internal Medicine Hematology & Oncology
DX: Z51.81 Encounter for therapeutic drug level monitoring (principal); Z79.01 Long term (current) use of anticoagulants

== ENCOUNTER → 2019-04-09 | Outpatient (CLI) | payer MEDICARE, MEDICAID ==
[2019-04-09 13:00] LABS: INR 1.56; PROTHROMBIN TIME 18.4 SECONDS (11.8-14.0)
== END ==
LOC: M LAB 11:26
PROVIDERS: ATTEND Internal Medicine Hematology & Oncology
DX: I26.99 Other pulmonary embolism without acute cor pulmonale (principal); M32.9 Systemic lupus erythematosus, unspecified; Z79.01 Long term (current) use of anticoagulants

== ENCOUNTER → 2019-04-13 | Outpatient (CLI) | payer MEDICARE, MEDICAID ==
[~2019-04-13] MED LIST changes: +COUM10TA PO; +K 10100T PO; +MAGN400C2 PO; +PRED20TA PO; +SULF1TAB93 PO; +VITA100T98 PO
[2019-04-13 11:14] LABS: INR 1.84
== END ==
LOC: M LAB 10:39
PROVIDERS: ATTEND Internal Medicine Hematology & Oncology
DX: Z51.81 Encounter for therapeutic drug level monitoring (principal); Z79.01 Long term (current) use of anticoagulants; I26.99 Other pulmonary embolism without acute cor pulmonale; M32.9 Systemic lupus erythematosus, unspecified

== ENCOUNTER → 2019-04-16 | Outpatient (CLI) | payer MEDICARE, MEDICAID ==
[~2019-04-16] MED LIST changes: +BENL200I; +CEFD1CAP8 PO; +FAMO40TA3 PO; +LISI10TA15; +MACR100C43 PO; -MECL-68 PO; +MECL1TAB31 PO; +MUCI1TAB16 PO; +PRED25TA
[2019-04-16 10:55] LABS: INR 2.12; PROTHROMBIN TIME 23.6 SECONDS (11.8-14.0)
== END ==
LOC: M LAB 09:53
PROVIDERS: ATTEND Internal Medicine Hematology & Oncology
DX: I26.99 Other pulmonary embolism without acute cor pulmonale (principal); M32.9 Systemic lupus erythematosus, unspecified; Z79.01 Long term (current) use of anticoagulants

== ENCOUNTER 2019-04-19 14:44 | Emergency (ER) | payer MEDICARE, MEDICAID ==
[~2019-04-19] VITALS: Ht 172.7 cm; Wt 136.4 kg
[~2019-04-19 14:44] MED LIST changes: -COUM10TA PO; -K 10100T PO; -MACR100C43 PO; -MAGN400C2 PO; -PRED20TA PO; -SULF1TAB93 PO; -VITA100T98 PO
[2019-04-19] MEDS ORDERED: K 10100T PO (15:22)
[2019-04-19] MEDS ORDERED: PRED20TA PO (15:22)
[2019-04-19] MEDS ORDERED: SULF1TAB93 PO (15:22)
[2019-04-19] MEDS ORDERED: COUM10TA PO (15:22)
[2019-04-19] MEDS ORDERED: MAGN400C2 PO (15:22)
[2019-04-19] MEDS ORDERED: VITA100T98 PO (15:22)
--- NOTE | 2019-04-19 15:52 | REP ---
Portable chest, 03:29 p.m., single AP view with the patient upright: Comparison is 01/23/2018. The lung de león are clear. The cardiac size is normal. The brian, mediastinum, and skeletal structures are unremarkable. Impression: Negative portable chest. There is no interval change. Electronically Signed by Garry Samayoa MD 04/19/2019 03:44 P
[2019-04-19 16:12] LABS: BASO % 0.5 % (0.0-1.0); EOS # 0.4 10^3/uL (0.0-0.5); EOS % 8.7 % (0.0-3.0); HEMATOCRIT 36.6 % (36.0-47.0); LYMPH # 0.6 10^3/uL (1.5-5.0); LYMPH % 14.9 % (24.0-44.0); MEAN CORPUSCULAR HEMOGLOBIN 27.3 pg (27.0-33.0); MEAN CORPUSCULAR HGB CONC 32.8 g/dl (32.0-36.5); MEAN CORPUSCULAR VOLUME 83.4 fl (80.0-96.0); MONO # 0.3 10^3/uL (0.0-0.8); MONO % 7.5 % (0.0-5.0); NEUTROPHILS # 2.8 10^3/uL (1.5-8.5); PLATELET COUNT, AUTOMATED 172 10^3/uL (150-450); RED BLOOD COUNT 4.39 10^6/uL (4.00-5.40); WHITE BLOOD COUNT 4.2 10^3/uL (4.0-10.0)
[2019-04-19 16:23] LABS: INR 2.33; PROTHROMBIN TIME 25.4 SECONDS (11.8-14.0)
[2019-04-19 16:32] LABS: ALBUMIN 3.3 GM/DL (3.2-5.2); ALT/SGPT 12 U/L (12-78); BILIRUBIN,DIRECT < 0.1 MG/DL (0.0-0.2); BILIRUBIN,TOTAL 0.2 MG/DL (0.2-1.0); BLOOD UREA NITROGEN 8 MG/DL (7-18); CALCIUM LEVEL 8.7 MG/DL (8.5-10.1); CARBON DIOXIDE LEVEL 25 MEQ/L (21-32); CHLORIDE LEVEL 102 MEQ/L (98-107); CK-MB VALUE MASS < 1.0 NG/ML (<3.6); CPK CREATINE PHOSPHOKINASE 70 U/L (26-192); CREATININE FOR GFR 0.96 MG/DL (0.55-1.30); GLOMERULAR FILTRATION RATE > 60.0 (>58); GLUCOSE, FASTING 106 MG/DL (70-100); LIPASE 86 U/L (73-393); MB/CK RELATIVE INDEX 1.43 (< OR =4); NT-PRO BNP 59 PG/ML (<125); POTASSIUM SERUM 3.9 MEQ/L (3.5-5.1); SODIUM LEVEL 138 MEQ/L (136-145); TOTAL PROTEIN 7.1 GM/DL (6.4-8.2); TROPONIN I < 0.02 NG/ML (< 0.10)
[2019-04-19] MEDS ORDERED: ISOVUE-370 76% 100ML VIAL (Q9967) As Ordered ONE (16:35)
--- NOTE | 2019-04-19 17:15 | REPVR ---
PROCEDURE INFORMATION: Exam: CT Angiography Chest With Contrast Exam date and time: 04/19/2019 4:50 PM Clinical history: 49 years old, female; Chest pain; Additional info: H/o pe pain TECHNIQUE: Imaging protocol: Computed tomographic angiography of the chest with intravenous contrast. 3D rendering: MIP reconstructed images were created and reviewed. Radiation optimization: All CT scans at this facility use at least one of these dose optimization techniques: automated exposure control; mA and/or kV adjustment per patient size (includes targeted exams where dose is matched to clinical indication); or iterative reconstruction. Contrast material: ISOVUE 370; Contrast volume: 75 ml; Contrast route: IV; COMPARISON: CT ANGIO CHEST 02/16/2019 6:46 AM FINDINGS: Pulmonary arteries: There are no pulmonary emboli. Aorta: There is no aortic dissection or aneurysm. Lungs: Mild nodular thickening in the left major fissure stable in appearance. There are a few scattered less than 3 mm pulmonary parenchymal nodules, located predominantly in the peripheral lung zones. These are likely postinflammatory or not clinically significant. Pleural space: Unremarkable. No pneumothorax. No pleural effusion. Heart: Unremarkable. No cardiomegaly. No pericardial effusion. Gallbladder and bile ducts: Cholecystectomy. Lymph nodes: Stable appearance of mediastinal adenopathy. Left hilar adenopathy has improved in comparison to the prior study. Bones/joints: Unremarkable. No acute fracture. Soft tissues: Unremarkable. IMPRESSION: 1. There is no aortic dissection or aneurysm. 2. There are no pulmonary emboli. 3. No acute pulmonary parenchymal findings. Electronically signed by: Kody Valdez On 04/19/2019 17:14:53 PM
[2019-04-19] MEDS ORDERED: ACETAMINOPHEN 325 MG TAB PO ONE (18:45)
[2019-04-19 20:38] LABS: CK-MB VALUE MASS < 1.0 NG/ML (<3.6); CPK CREATINE PHOSPHOKINASE 52 U/L (26-192); MB/CK RELATIVE INDEX 1.92 (< OR =4); TROPONIN I < 0.02 NG/ML (< 0.10)
[2019-04-19 20:47] VITALS: BP 137/65
--- NOTE | 2019-04-19 21:42 | ECGEPIP ---
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
--- NOTE | 2019-04-19 21:47 | ECGEPIP ---
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
== END 2019-04-19 21:04 | disposition home or self-care (01) ==
LOC: M ED 14:44
DX: R07.89 Other chest pain (principal); R05 Cough; I10 Essential (primary) hypertension; E07.9 Disorder of thyroid, unspecified; M32.9 Systemic lupus erythematosus, unspecified; Z79.899 Other long term (current) drug therapy; Z79.82 Long term (current) use of aspirin; Z79.01 Long term (current) use of anticoagulants; Z88.1 Allergy status to other antibiotic agents; Z88.5 Allergy status to narcotic agent; Z88.8 Allergy status to other drugs, medicaments and biological substances
CPT/HCPCS: 36415; 71045; 71275; 80048; 80076; 82550; 82553; 83690; 83880; 84443; 84484; 85025; 85610; 93005; 93041; 94760; 99285; Q9967

== ENCOUNTER → 2019-04-19 | Outpatient (CLI) | payer MEDICARE, MEDICAID ==
[~2019-04-19] MED LIST changes: -BENL200I; -CEFD1CAP8 PO; -FAMO40TA3 PO; -LISI10TA15; +MECL-68 PO; -MECL1TAB31 PO; -MUCI1TAB16 PO; -PRED25TA
[2019-04-19 11:13] LABS: INR 2.32; PROTHROMBIN TIME 25.3 SECONDS (11.8-14.0)
== END ==
LOC: M LAB 10:07
PROVIDERS: ATTEND Internal Medicine Hematology & Oncology
DX: I26.99 Other pulmonary embolism without acute cor pulmonale (principal); M32.9 Systemic lupus erythematosus, unspecified; Z79.01 Long term (current) use of anticoagulants

== ENCOUNTER → 2019-04-23 | Outpatient (CLI) | payer MEDICARE, MEDICAID ==
[~2019-04-23] MED LIST changes: +COUM10TA PO; +K 10100T PO; +MACR100C43 PO; +MAGN400C2 PO; +PRED20TA PO; +SULF1TAB93 PO; +VITA100T98 PO
[2019-04-23 12:04] LABS: INR 2.42; PROTHROMBIN TIME 26.1 SECONDS (11.8-14.0)
== END ==
LOC: M LAB 10:47
PROVIDERS: ATTEND Internal Medicine Hematology & Oncology
DX: I26.99 Other pulmonary embolism without acute cor pulmonale (principal)

== ENCOUNTER 2019-04-24 14:06 | Emergency (ER) | payer MEDICARE, MEDICAID ==
[~2019-04-24] VITALS: Ht 170.2 cm; Wt 136.4 kg
[~2019-04-24 14:06] MED LIST changes: -MACR100C43 PO
[2019-04-24] MEDS ORDERED: MACR100C43 PO (14:33)
[2019-04-24] MEDS ORDERED: ISOVUE-370 76% 100ML VIAL (Q9967) As Ordered ONE (15:09)
[2019-04-24] MEDS ORDERED: KETOROLAC 30 MG/ML VIAL (J1885) IV ONE (17:15)
--- NOTE | 2019-04-24 17:53 | REP ---
Maxillofacial CT study with IV contrast: History: Left parotitis. Comparison CT study October 15, 2009. CT contrast dose: 75 ml of intravenous Isovue [address] findings: There is a mottled or stippled pattern of increased density and swelling of the parotid glands bilaterally. There are a few punctate calcifications in the parotid glands bilaterally. Parotid glands are bilaterally prominent in size. Submandibular glands are normal and symmetric. No parotid mass lesion or abnormal fluid collection is seen. There is nearly complete opacification of the maxillary sinuses bilaterally consistent with bilateral maxillary sinusitis. Sphenoid, ethmoid, and frontal sinuses are clear. Mastoid aeration is normal and symmetric. No intraorbital lesion is seen. Impression: Enlargement and stippled pattern of increased density in the parotid glands bilaterally consistent with parotitis. A normal submandibular glands. Opacified maxillary sinuses bilaterally. Electronically Signed by Ncik Aguilar MD 04/24/2019 06:23 P
[2019-04-24 18:28] VITALS: BP 128/68
== END 2019-04-24 18:29 | disposition home or self-care (01) ==
LOC: M ED 14:06
DX: K11.20 Sialoadenitis, unspecified (principal); M32.9 Systemic lupus erythematosus, unspecified; I10 Essential (primary) hypertension; E66.9 Obesity, unspecified; F32.9 Major depressive disorder, single episode, unspecified; Z79.82 Long term (current) use of aspirin; Z79.01 Long term (current) use of anticoagulants; Z79.899 Other long term (current) drug therapy; Z88.1 Allergy status to other antibiotic agents; Z88.0 Allergy status to penicillin; Z88.5 Allergy status to narcotic agent; Z88.8 Allergy status to other drugs, medicaments and biological substances
CPT/HCPCS: 70487; 80047; 96374; 99284; J1885; Q9967

== ENCOUNTER → 2019-04-26 | Outpatient (CLI) | payer MEDICARE, MEDICAID ==
[~2019-04-26] MED LIST changes: +BENL200I; +CEFD1CAP8 PO; +FAMO40TA3 PO; +LISI10TA15; +MACR100C43 PO; -MECL-68 PO; +MECL1TAB31 PO; +MUCI1TAB16 PO; +PRED25TA
[2019-04-26 10:39] LABS: INR 2.88; PROTHROMBIN TIME 30.1 SECONDS (11.8-14.0)
== END ==
LOC: M LAB 09:08
PROVIDERS: ATTEND Internal Medicine Hematology & Oncology
DX: Z79.01 Long term (current) use of anticoagulants (principal)

== ENCOUNTER → 2019-04-30 | Outpatient (CLI) | payer MEDICARE, MEDICAID ==
[~2019-04-30] MED LIST changes: -BENL200I; -LISI10TA15; +MECL-68 PO; -MECL1TAB31 PO; -PRED25TA
[2019-04-30 11:21] LABS: INR 3.23
== END ==
LOC: M LAB 10:27
PROVIDERS: ATTEND Internal Medicine Hematology & Oncology
DX: Z79.01 Long term (current) use of anticoagulants (principal)

== ENCOUNTER → 2019-05-03 | Outpatient (CLI) | payer MEDICARE, MEDICAID ==
[2019-05-03 12:01] LABS: INR 3.47; PROTHROMBIN TIME 34.9 SECONDS (11.8-14.0)
== END ==
LOC: M LAB 11:05
PROVIDERS: ATTEND Internal Medicine Hematology & Oncology
DX: Z79.01 Long term (current) use of anticoagulants (principal)

== ENCOUNTER 2019-05-06 13:23 | Emergency (ER) | payer MEDICARE, MEDICAID ==
[~2019-05-06] VITALS: Ht 172.7 cm; Wt 138.3 kg
[~2019-05-06 13:23] MED LIST changes: -CEFD1CAP8 PO; -FAMO40TA3 PO; -MUCI1TAB16 PO
[2019-05-06 14:21] LABS: BASO % 0.2 % (0.0-1.0); EOS # 0.4 10^3/uL (0.0-0.5); EOS % 8.8 % (0.0-3.0); HEMATOCRIT 38.3 % (36.0-47.0); HEMOGLOBIN 11.9 g/dl (12.0-15.5); LYMPH # 1.1 10^3/uL (1.5-5.0); LYMPH % 22.3 % (24.0-44.0); MEAN CORPUSCULAR HGB CONC 31.1 g/dl (32.0-36.5); MEAN CORPUSCULAR VOLUME 83.6 fl (80.0-96.0); MONO # 0.4 10^3/uL (0.0-0.8); MONO % 7.6 % (0.0-5.0); NEUTROPHILS # 2.9 10^3/uL (1.5-8.5); NEUTROPHILS % 60.5 % (36.0-66.0); PLATELET COUNT, AUTOMATED 146 10^3/uL (150-450); RED BLOOD COUNT 4.58 10^6/uL (4.00-5.40); WHITE BLOOD COUNT 4.8 10^3/uL (4.0-10.0)
[2019-05-06 14:34] LABS: D-DIMER QUANT 437.89 ng/ml (<500)
[2019-05-06 14:48] LABS: ALBUMIN 3.3 GM/DL (3.2-5.2); ALT/SGPT 15 U/L (12-78); BILIRUBIN,DIRECT < 0.1 MG/DL (0.0-0.2); BILIRUBIN,TOTAL 0.4 MG/DL (0.2-1.0); BLOOD UREA NITROGEN 12 MG/DL (7-18); CALCIUM LEVEL 8.5 MG/DL (8.5-10.1); CARBON DIOXIDE LEVEL 30 MEQ/L (21-32); CHLORIDE LEVEL 105 MEQ/L (98-107); CREATININE FOR GFR 0.94 MG/DL (0.55-1.30); GLOMERULAR FILTRATION RATE > 60.0 (>58); GLUCOSE, FASTING 78 MG/DL (70-100); LIPASE 118 U/L (73-393); SODIUM LEVEL 141 MEQ/L (136-145); TOTAL PROTEIN 7.2 GM/DL (6.4-8.2)
[2019-05-06] MEDS ORDERED: MUCI1TAB16 PO (14:56)
[2019-05-06] MEDS ORDERED: CEFD1CAP8 PO (14:56)
[2019-05-06] MEDS ORDERED: FAMO40TA3 PO (14:56)
[2019-05-06 15:22] VITALS: BP 126/67
[2019-05-06 15:33] LABS: INR 2.76; PROTHROMBIN TIME 29.1 SECONDS (11.8-14.0)
--- NOTE | 2019-05-06 18:53 | REPVR ---
PROCEDURE INFORMATION: Exam: US Duplex Left Lower Extremity Veins, Limited Exam date and time: 05/06/2019 6:22 PM Clinical history: 49 years old, female; Pain; Leg, lower; Left; Additional info: Left posterior knee pain TECHNIQUE: Imaging protocol: Real-time Duplex ultrasound of the Left Lower Extremity with 2-D lew scale, color Doppler flow and spectral waveform analysis with image documentation. Limited exam focused on the left lower extremity veins. COMPARISON: US Duplex, Ext LOWER veins, bilat 01/23/2018 11:52 PM FINDINGS: Left deep veins: Unremarkable. The common femoral, femoral, popliteal and visualized calf veins are patent without thrombus. Normal compressibility, augmentation response and Doppler waveforms. Left superficial veins: Unremarkable. Saphenofemoral junction is patent without thrombus. Soft tissues: Unremarkable. IMPRESSION: No sonographic evidence of deep vein thrombosis. Electronically signed by: Juve Meza On 05/06/2019 18:53:28 PM
== END 2019-05-06 19:15 | disposition home or self-care (01) ==
LOC: M ED 13:23
DX: M79.662 Pain in left lower leg (principal); M25.562 Pain in left knee; G47.33 Obstructive sleep apnea (adult) (pediatric); L93.0 Discoid lupus erythematosus; K21.9 Gastro-esophageal reflux disease without esophagitis; I10 Essential (primary) hypertension; Z88.1 Allergy status to other antibiotic agents; Z88.5 Allergy status to narcotic agent; Z88.8 Allergy status to other drugs, medicaments and biological substances; G43.909 Migraine, unspecified, not intractable, without status migrainosus; Z79.82 Long term (current) use of aspirin; Z79.52 Long term (current) use of systemic steroids; Z79.01 Long term (current) use of anticoagulants; Z79.899 Other long term (current) drug therapy

== ENCOUNTER → 2019-05-10 | Outpatient (CLI) | payer MEDICARE, MEDICAID ==
[~2019-05-10] MED LIST changes: +CEFD1CAP8 PO; +FAMO40TA3 PO; +MUCI1TAB16 PO
[2019-05-10 10:03] LABS: INR 2.34; PROTHROMBIN TIME 25.5 SECONDS (11.8-14.0)
== END ==
LOC: M LAB 09:16
PROVIDERS: ATTEND Internal Medicine Hematology & Oncology
DX: Z79.01 Long term (current) use of anticoagulants (principal)

== ENCOUNTER → 2019-05-14 | Outpatient (CLI) | payer MEDICARE, MEDICAID ==
[2019-05-14 09:23] LABS: INR 2.39; PROTHROMBIN TIME 25.9 SECONDS (11.8-14.0)
== END ==
LOC: M LAB 08:38
PROVIDERS: ATTEND Internal Medicine Hematology & Oncology
DX: Z79.01 Long term (current) use of anticoagulants (principal)

== ENCOUNTER → 2019-05-17 | Outpatient (CLI) | payer MEDICARE, MEDICAID ==
[2019-05-17 11:17] LABS: INR 2.31; PROTHROMBIN TIME 25.2 SECONDS (11.8-14.0)
== END ==
LOC: M LAB 10:12
PROVIDERS: ATTEND Internal Medicine Hematology & Oncology
DX: Z79.01 Long term (current) use of anticoagulants (principal)

== ENCOUNTER → 2019-05-23 | Outpatient (CLI) | payer MEDICARE, MEDICAID ==
[2019-05-23 12:04] LABS: INR 1.96; PROTHROMBIN TIME 22.1 SECONDS (11.8-14.0)
== END ==
LOC: M LAB 11:28
PROVIDERS: ATTEND Internal Medicine Hematology & Oncology
DX: Z51.81 Encounter for therapeutic drug level monitoring (principal); Z79.01 Long term (current) use of anticoagulants; M32.9 Systemic lupus erythematosus, unspecified; I26.99 Other pulmonary embolism without acute cor pulmonale

== ENCOUNTER → 2019-05-28 | Outpatient (CLI) | payer MEDICARE, MEDICAID ==
[2019-05-28 13:24] LABS: INR 2.27; PROTHROMBIN TIME 24.8 SECONDS (11.8-14.0)
== END ==
LOC: M LAB 12:08
PROVIDERS: ATTEND Internal Medicine Hematology & Oncology
DX: Z51.81 Encounter for therapeutic drug level monitoring (principal); Z79.01 Long term (current) use of anticoagulants

== ENCOUNTER → 2019-06-04 | Outpatient (CLI) | payer MEDICARE, MEDICAID ==
[2019-06-04 11:46] LABS: INR 2.24; PROTHROMBIN TIME 24.6 SECONDS (11.8-14.0)
== END ==
LOC: M LAB 10:47
PROVIDERS: ATTEND Internal Medicine Hematology & Oncology
DX: Z79.01 Long term (current) use of anticoagulants (principal)

== ENCOUNTER → 2019-06-11 | Outpatient (CLI) | payer MEDICARE, MEDICAID ==
[2019-06-11 12:23] LABS: INR 2.84; PROTHROMBIN TIME 29.7 SECONDS (11.8-14.0)
== END ==
LOC: M LAB 10:43
PROVIDERS: ATTEND Internal Medicine Hematology & Oncology
DX: I26.99 Other pulmonary embolism without acute cor pulmonale (principal); M32.9 Systemic lupus erythematosus, unspecified; Z79.01 Long term (current) use of anticoagulants

== ENCOUNTER → 2019-06-14 | Outpatient (CLI) | payer MEDICARE, MEDICAID ==
[2019-06-14 11:32] LABS: INR 2.69; PROTHROMBIN TIME 28.4 SECONDS (11.8-14.0)
== END ==
LOC: M LAB 10:09
PROVIDERS: ATTEND Internal Medicine Hematology & Oncology
DX: Z51.81 Encounter for therapeutic drug level monitoring (principal); Z79.01 Long term (current) use of anticoagulants

== ENCOUNTER → 2019-06-18 | Outpatient (CLI) | payer MEDICARE, MEDICAID ==
[2019-06-18 13:00] LABS: INR 2.25; PROTHROMBIN TIME 24.7 SECONDS (11.8-14.0)
== END ==
LOC: M LAB 11:47
PROVIDERS: ATTEND Internal Medicine Hematology & Oncology
DX: I26.99 Other pulmonary embolism without acute cor pulmonale (principal); M32.9 Systemic lupus erythematosus, unspecified; Z79.01 Long term (current) use of anticoagulants

== ENCOUNTER → 2019-06-21 | Outpatient (CLI) | payer MEDICARE, MEDICAID ==
[~2019-06-21] MED LIST changes: +BENL200I; +LISI10TA15; +PRED25TA
[2019-06-21 11:42] LABS: INR 2.21; PROTHROMBIN TIME 24.3 SECONDS (11.8-14.0)
== END ==
LOC: M LRY 08:56
PROVIDERS: ATTEND Internal Medicine Hematology & Oncology
DX: Z51.81 Encounter for therapeutic drug level monitoring (principal); Z79.01 Long term (current) use of anticoagulants; I26.99 Other pulmonary embolism without acute cor pulmonale; M32.9 Systemic lupus erythematosus, unspecified

== ENCOUNTER → 2019-06-25 | Outpatient (CLI) | payer MEDICARE, MEDICAID ==
[2019-06-25 12:29] LABS: PROTHROMBIN TIME 22.5 SECONDS (11.8-14.0)
== END ==
LOC: M LAB 11:30
PROVIDERS: ATTEND Internal Medicine Hematology & Oncology
DX: Z51.81 Encounter for therapeutic drug level monitoring (principal); Z79.01 Long term (current) use of anticoagulants; M32.9 Systemic lupus erythematosus, unspecified; I26.99 Other pulmonary embolism without acute cor pulmonale

== ENCOUNTER 2019-06-27 10:22 | Emergency (ER) | payer MEDICARE, MEDICAID ==
[~2019-06-27] VITALS: Ht 172.7 cm; Wt 139.2 kg
[~2019-06-27 10:22] MED LIST changes: -BENL200I; -LISI10TA15; -PRED25TA
--- NOTE | 2019-06-27 10:59 | REP ---
Clinical: Acute chest pain . Comparison: 04/19/2019 . Findings: The mediastinum and cardiac silhouette are stable and within normal limits for portable technique. The lung de león are clear without acute consolidation, effusion, or pneumothorax. Skeletal structures are intact. Impression: No acute cardiopulmonary process appreciated. Electronically Signed by Cheo Shaw MD 06/27/2019 10:50 A
[2019-06-27 11:01] LABS: BASO % 0.3 % (0.0-1.0); EOS # 0.1 10^3/uL (0.0-0.5); EOS % 4.2 % (0.0-3.0); HEMOGLOBIN 12.3 g/dl (12.0-15.5); LYMPH # 0.7 10^3/uL (1.5-5.0); LYMPH % 20.3 % (24.0-44.0); MEAN CORPUSCULAR HEMOGLOBIN 25.9 pg (27.0-33.0); MEAN CORPUSCULAR HGB CONC 31.5 g/dl (32.0-36.5); MEAN CORPUSCULAR VOLUME 82.1 fl (80.0-96.0); MONO # 0.3 10^3/uL (0.0-0.8); MONO % 8.1 % (0.0-5.0); NEUTROPHILS # 2.2 10^3/uL (1.5-8.5); NEUTROPHILS % 66.5 % (36.0-66.0); PLATELET COUNT, AUTOMATED 159 10^3/uL (150-450); RED BLOOD COUNT 4.75 10^6/uL (4.00-5.40); WHITE BLOOD COUNT 3.4 10^3/uL (4.0-10.0)
[2019-06-27] MEDS ORDERED: BENL200I (11:03)
[2019-06-27] MEDS ORDERED: LISI10TA15 (11:03)
[2019-06-27] MEDS ORDERED: PRED25TA (11:03)
[2019-06-27 11:34] LABS: CK-MB VALUE MASS < 1.0 NG/ML (<3.6); CPK CREATINE PHOSPHOKINASE 75 U/L (26-192); MB/CK RELATIVE INDEX 1.33 (< OR =4); TROPONIN I < 0.02 NG/ML (< 0.10)
[2019-06-27] MEDS ORDERED: GI COCKTAIL 50ML BTL(HYOSCYAMINE/MAALOX/LIDOCAINE VISCOUS)(1:3:1) PO ONE (12:30)
[2019-06-27 12:39] LABS: INR 2.09; PROTHROMBIN TIME 23.3 SECONDS (11.8-14.0)
[2019-06-27 12:40] LABS: PARTIAL THROMBOPLASTIN TIME 34.2 SECONDS (25.0-38.4)
[2019-06-27 12:54] LABS: BLOOD UREA NITROGEN 12 MG/DL (7-18); CALCIUM LEVEL 8.7 MG/DL (8.5-10.1); CARBON DIOXIDE LEVEL 31 MEQ/L (21-32); CHLORIDE LEVEL 104 MEQ/L (98-107); CREATININE FOR GFR 0.93 MG/DL (0.55-1.30); GLOMERULAR FILTRATION RATE > 60.0 (>58); GLUCOSE, FASTING 93 MG/DL (70-100); POTASSIUM SERUM 3.5 MEQ/L (3.5-5.1); SODIUM LEVEL 140 MEQ/L (136-145)
[2019-06-27] MEDS ORDERED: ISOVUE-370 76% 100ML VIAL (Q9967) As Ordered ONE (13:13)
[2019-06-27 13:17] LABS: ALBUMIN 3.5 GM/DL (3.2-5.2); ALT/SGPT 26 U/L (12-78); BILIRUBIN,DIRECT < 0.1 MG/DL (0.0-0.2); BILIRUBIN,TOTAL 0.3 MG/DL (0.2-1.0); LIPASE 120 U/L (73-393); TOTAL PROTEIN 7.4 GM/DL (6.4-8.2)
--- NOTE | 2019-06-27 13:40 | REP ---
Clinical: Chest pain and shortness of breath . Technique: Axial contrast enhanced images from the thoracic inlet to the upper abdomen using 100 ml Isovue 370 intravenous contrast material with multiplanar re-formations. Findings: Satisfactory enhancement of the pulmonary vasculature is achieved and no filling defects are identified to suggest pulmonary embolus. Further evaluation of the mediastinum demonstrates normal thoracic aorta, heart and pericardium. The bilateral lung de león are well aerated and clear without consolidation pleural effusion or pneumothorax. Tracheobronchial tree is patent. No nodule or mass lesion is identified. No adenopathy noted. Surrounding musculoskeletal structures intact Impression: No evidence for pulmonary embolus. No acute mediastinal or pleural parenchymal process. Electronically Signed by Cheo Shaw MD 06/27/2019 01:31 P
--- NOTE | 2019-06-27 13:56 | REP ---
Clinical: Bilateral lower extremity/calf pain . Technique: Garcia scale and color Doppler evaluation using linear high frequency transducer. Findings: Ultrasound examination of the right and left lower extremity deep venous structures from the common femoral vein to the popliteal vein demonstrates normal compressibility flow and wave patterns in response to respiration and augmentation. There is no evidence for deep venous thrombosis. Impression: No evidence for deep venous thrombosis. Electronically Signed by Cheo Shaw MD 06/27/2019 01:47 P
[2019-06-27 17:10] LABS: CK-MB VALUE MASS < 1.0 NG/ML (<3.6); CPK CREATINE PHOSPHOKINASE 68 U/L (26-192); MB/CK RELATIVE INDEX 1.47 (< OR =4); TROPONIN I < 0.02 NG/ML (< 0.10)
[2019-06-27 17:39] VITALS: BP 104/68
--- NOTE | 2019-06-27 23:59 | ECGEPIP ---
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
--- NOTE | 2019-06-28 00:02 | ECGEPIP ---
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
== END 2019-06-27 17:45 | disposition home or self-care (01) ==
LOC: M ED 10:22
DX: R07.9 Chest pain, unspecified (principal); I45.89 Other specified conduction disorders; I10 Essential (primary) hypertension; M32.9 Systemic lupus erythematosus, unspecified; A69.20 Lyme disease, unspecified; M35.00 Sjogren syndrome, unspecified; Z86.79 Personal history of other diseases of the circulatory system; G43.909 Migraine, unspecified, not intractable, without status migrainosus; D68.61 Antiphospholipid syndrome; Z86.711 Personal history of pulmonary embolism; Z79.01 Long term (current) use of anticoagulants; Z79.899 Other long term (current) drug therapy; Z88.1 Allergy status to other antibiotic agents; Z88.8 Allergy status to other drugs, medicaments and biological substances; Z88.5 Allergy status to narcotic agent
CPT/HCPCS: 71045; 71275; 80048; 80076; 82550; 82553; 83690; 84484; 85025; 85610; 85730; 93005; 93041; 93970; 94760; 99285; Q9967

== ENCOUNTER → 2019-07-02 | Outpatient (CLI) | payer MEDICARE, MEDICAID ==
[~2019-07-02] MED LIST changes: +BENL200I; +LISI10TA15; +PRED25TA
== END ==
LOC: M LRY 10:30
PROVIDERS: ATTEND Internal Medicine Hematology & Oncology
DX: Z53.9 Procedure and treatment not carried out, unspecified reason (principal); Z79.01 Long term (current) use of anticoagulants

== ENCOUNTER → 2019-07-09 | Outpatient (CLI) | payer MEDICARE, MEDICAID ==
[2019-07-09 11:56] LABS: INR 1.98; PROTHROMBIN TIME 22.3 SECONDS (11.8-14.0)
== END ==
LOC: M LAB 11:03
PROVIDERS: ATTEND Internal Medicine Hematology & Oncology
DX: Z51.81 Encounter for therapeutic drug level monitoring (principal); Z79.01 Long term (current) use of anticoagulants; I26.99 Other pulmonary embolism without acute cor pulmonale; M32.9 Systemic lupus erythematosus, unspecified

== ENCOUNTER → 2019-07-19 | Outpatient (CLI) | payer MEDICARE, MEDICAID ==
[2019-07-19 09:49] LABS: INR 2.06
== END ==
LOC: M LAB 09:03
PROVIDERS: ATTEND Internal Medicine Hematology & Oncology
DX: I26.99 Other pulmonary embolism without acute cor pulmonale (principal); M32.9 Systemic lupus erythematosus, unspecified; Z79.01 Long term (current) use of anticoagulants

== ENCOUNTER → 2019-07-23 | Outpatient (CLI) | payer MEDICARE, MEDICAID ==
[2019-07-23 10:50] LABS: INR 2.37; PROTHROMBIN TIME 25.7 SECONDS (11.8-14.0)
== END ==
LOC: M LAB 09:43
PROVIDERS: ATTEND Internal Medicine Hematology & Oncology
DX: I26.99 Other pulmonary embolism without acute cor pulmonale (principal); M32.9 Systemic lupus erythematosus, unspecified; Z79.01 Long term (current) use of anticoagulants

== ENCOUNTER → 2019-07-27 | Outpatient (CLI) | payer MEDICARE, MEDICAID ==
[2019-07-27 09:53] LABS: INR 2.69; PROTHROMBIN TIME 28.5 SECONDS (11.8-14.0)
== END ==
LOC: M LAB 09:10
PROVIDERS: ATTEND Internal Medicine Hematology & Oncology
DX: I26.99 Other pulmonary embolism without acute cor pulmonale (principal); M32.9 Systemic lupus erythematosus, unspecified; Z79.01 Long term (current) use of anticoagulants

== ENCOUNTER → 2019-07-30 | Outpatient (CLI) | payer MEDICARE, MEDICAID ==
[2019-07-30 13:24] LABS: INR 2.29
== END ==
LOC: M LAB 12:43
PROVIDERS: ATTEND Internal Medicine Hematology & Oncology
DX: I26.99 Other pulmonary embolism without acute cor pulmonale (principal); M32.9 Systemic lupus erythematosus, unspecified; Z79.01 Long term (current) use of anticoagulants

== ENCOUNTER → 2019-08-02 | Outpatient (CLI) | payer MEDICARE, MEDICAID ==
[2019-08-02 12:36] LABS: INR 2.33; PROTHROMBIN TIME 25.4 SECONDS (11.8-14.0)
== END ==
LOC: M LAB 11:40
PROVIDERS: ATTEND Internal Medicine Hematology & Oncology
DX: Z51.81 Encounter for therapeutic drug level monitoring (principal); Z79.01 Long term (current) use of anticoagulants; I26.99 Other pulmonary embolism without acute cor pulmonale; M32.9 Systemic lupus erythematosus, unspecified

== ENCOUNTER → 2019-08-06 | Outpatient (CLI) | payer MEDICARE, MEDICAID ==
[2019-08-06 14:06] LABS: INR 2.27; PROTHROMBIN TIME 24.9 SECONDS (11.8-14.0)
== END ==
LOC: M LAB 12:15
PROVIDERS: ATTEND Internal Medicine Hematology & Oncology
DX: Z79.01 Long term (current) use of anticoagulants (principal)

== ENCOUNTER → 2019-08-09 | Outpatient (CLI) | payer MEDICARE, MEDICAID ==
[2019-08-09 09:50] LABS: INR 2.61; PROTHROMBIN TIME 27.8 SECONDS (11.8-14.0)
== END ==
LOC: M LAB 09:09
PROVIDERS: ATTEND Internal Medicine Hematology & Oncology
DX: Z51.81 Encounter for therapeutic drug level monitoring (principal); Z79.01 Long term (current) use of anticoagulants; I26.99 Other pulmonary embolism without acute cor pulmonale

== ENCOUNTER → 2019-08-13 | Outpatient (CLI) | payer MEDICARE, MEDICAID ==
[~2019-08-13] MED LIST changes: -MECL-68 PO; +MECL1TAB31 PO
[2019-08-13 16:08] LABS: INR 2.02; PROTHROMBIN TIME 22.7 SECONDS (11.8-14.0)
== END ==
LOC: M LRY 12:33
PROVIDERS: ATTEND Internal Medicine Hematology & Oncology
DX: Z79.01 Long term (current) use of anticoagulants (principal)

== ENCOUNTER → 2019-08-17 | Outpatient (CLI) | payer MEDICARE, MEDICAID ==
[2019-08-17 13:40] LABS: INR 2.26; PROTHROMBIN TIME 24.8 SECONDS (11.8-14.0)
== END ==
LOC: M LAB 11:23
PROVIDERS: ATTEND Internal Medicine Hematology & Oncology
DX: Z79.01 Long term (current) use of anticoagulants (principal)

== ENCOUNTER → 2019-08-22 | Outpatient (CLI) | payer MEDICARE, MEDICAID ==
[2019-08-22 15:18] LABS: INR 2.2; PROTHROMBIN TIME 24.2 SECONDS (11.8-14.0)
== END ==
LOC: M LAB 13:43
PROVIDERS: ATTEND Internal Medicine Hematology & Oncology
DX: Z51.81 Encounter for therapeutic drug level monitoring (principal); Z79.01 Long term (current) use of anticoagulants

== ENCOUNTER → 2019-08-24 | Outpatient (CLI) | payer MEDICARE, MEDICAID ==
[2019-08-24 11:14] LABS: BASO % 0.3 % (0.0-1.0); EOS # 0.1 10^3/uL (0.0-0.5); EOS % 3.2 % (0.0-3.0); HEMATOCRIT 38.4 % (36.0-47.0); HEMOGLOBIN 12.3 g/dl (12.0-15.5); LYMPH # 0.7 10^3/uL (1.5-5.0); LYMPH % 19.4 % (24.0-44.0); MEAN CORPUSCULAR HEMOGLOBIN 25.8 pg (27.0-33.0); MEAN CORPUSCULAR VOLUME 80.7 fl (80.0-96.0); MONO # 0.3 10^3/uL (0.0-0.8); MONO % 7.5 % (0.0-5.0); NEUTROPHILS # 2.6 10^3/uL (1.5-8.5); NEUTROPHILS % 69.3 % (36.0-66.0); PLATELET COUNT, AUTOMATED 158 10^3/uL (150-450); RED BLOOD COUNT 4.76 10^6/uL (4.00-5.40); WHITE BLOOD COUNT 3.7 10^3/uL (4.0-10.0)
[2019-08-24 11:34] LABS: HEMOGLOBIN A1c 5.6 %
[2019-08-24 11:41] LABS: ERYTHROCYTE SEDIMENTATION RATE 20 mm/hr (0-20)
[2019-08-24 11:48] LABS: ALBUMIN 3.5 GM/DL (3.2-5.2); ALT/SGPT 22 U/L (12-78); BILIRUBIN,TOTAL 0.3 MG/DL (0.2-1.0); BLOOD UREA NITROGEN 16 MG/DL (7-18); CALCIUM LEVEL 8.7 MG/DL (8.5-10.1); CARBON DIOXIDE LEVEL 29 MEQ/L (21-32); CHLORIDE LEVEL 104 MEQ/L (98-107); CREATININE FOR GFR 0.78 MG/DL (0.55-1.30); FOLATE 8.1 NG/ML; GLOMERULAR FILTRATION RATE > 60.0 (>58); GLUCOSE, FASTING 92 MG/DL (70-100); POTASSIUM SERUM 3.6 MEQ/L (3.5-5.1); RHEUMATOID FACTOR QUANT < 10.0 IU/ML (<15.0); SODIUM LEVEL 139 MEQ/L (136-145); TOTAL PROTEIN 7.1 GM/DL (6.4-8.2); VITAMIN B12 LEVEL 448 PG/ML
== END ==
LOC: M LAB 10:16
PROVIDERS: ATTEND Psychiatry & Neurology Neurology
DX: G62.9 Polyneuropathy, unspecified (principal); R51 Headache; Z79.01 Long term (current) use of anticoagulants

== ENCOUNTER → 2019-08-27 | Outpatient (CLI) | payer MEDICARE, MEDICAID ==
--- NOTE | 2019-09-07 03:25 | ECWPNPC ---
PATIENT NAME: BROOKS HENDRIX : 1970 GENDER: FEMALE VISIT DATE: 08/27/2019 DISCHARGE DATE: 08/27/19 1632 VISIT LOCKED DATE TIME: PHYSICIAN: DREW CARRERA MD RESOURCE: DREW CARRERA MD REASON FOR APPOINTMENT 1. HEADACHES-SCHEDULE WITH HISTORY OF PRESENT ILLNESS PAIN SCREENING: PATIENT HAS A COMPLAINT OF ACUTE OR CHRONIC PAIN :YES 49 YEAR OLD FEMALE PATIENT WITH A HISTORY OF CHRONIC MIGRAINES. THE PATIENT DESCRIBES THE PAIN ACHING, BURNING, STABBING, AND INTERMITTENT WITH A PAIN SCORE OF 3-7/10 DEPENDING ON PHYSICAL ACTIVITY AND MEDICATION USAGE. THE PATIENT SAYS SHE HAS LIGHT SENSITIVITY AND SOMETIMES BLURRED VISION DURING HER MIGRAINES. THE PATIENT SAYS HER MIGRAINES MAINLY OCCUR OVER THE TEMPORAL AREA AND SOMETIMES THEY OCCUR OVER THE OCCIPITAL AREA BUT ONLY FOR A FEW MINUTES AT A TIME. THE PATIENT SAYS SHE IS BEING SEEN BY HER NEUROLOGIST, DR. OCONNOR, WHO IS HELPING WITH HER MIGRAINE PAIN. THE PATIENT SAYS SHE HAS A HISTORY OF PAIN OVER MULTIPLE AREAS OF HER BODY WELL, INCLUDING CRAMPS IN HER LEGS THAT OFTEN WAKE HER UP AT NIGHT. PATIENT DENIES UNEXPLAINABLE WEIGHT LOSS, FEVER, CHILLS, NEW CHANGES ON HER URINARY OR BOWEL CONTROL. FALL RISK SCREENING: SCREENING :NO FALLS REPORTED IN THE LAST YEAR CURRENT MEDICATIONS TAKING WARFARIN SODIUM 2 MG TABLET 1 TABLET ORALLY ONCE A DAY, NOTES: 13MG TOTAL ONCE DAIILY TAKING PREDNISONE 2.5MG 1 TAB ORAL DAILY TAKING LEVOTHYROXINE SODIUM 100 MCG TABLET 1 TABLET ORALLY ONCE A DAY TAKING PANTOPRAZOLE SODIUM 40 MG TABLET DELAYED RELEASE 1 TABLET ORALLY ONCE A DAY TAKING BENLYSTA 200 MG/ML SOLUTION AUTO-INJECTOR 1 ML SUBCUTANEOUS , NOTES: INJECTION WEEKLY FOR LUPUS TAKING VITAMIN D3 1000 UNIT/SPRAY LIQUID 1 SPRAY UNDER THE TONGUE ORALLY ONCE A DAY, NOTES: TAKES 1000 UNITS DAILY TAKING CALCIUM CITRATE 250 MG TABLET 1 TABLET ORALLY BID TAKING FAMOTIDINE 40 MG TABLET 1 CAP ORALLY ONCE A DAY TAKING RIBOFLAVIN 100 MG TABLET 4 TABS ORALLY ONCE A DAY TAKING VITAMIN K 100 MCG TABLET 1 TABLET ORALLY ONCE A DAY TAKING KLOR-CON 10 10 MEQ TABLET EXTENDED RELEASE 1 TABLET WITH FOOD ORALLY TWICE A DAY TAKING MAGNESIUM 400 MG TABLET 1 TABLET WITH A MEAL ORALLY ONCE A DAY TAKING FISH OIL 1000 MG CAPSULE 1 CAPSULE ORALLY ONCE A DAY, NOTES: 1200 MG DAILY UNKNOWN ASPIR-81 81 MG TABLET DELAYED RELEASE 1 TABLET ORALLY ONCE A DAY UNKNOWN CITRACAL + D UNKNOWN WARFARIN SODIUM 10 MG TABLET ORALLY UNKNOWN PLAQUENIL 200 MG TABLET 1 TABLET WITH FOOD OR MILK ORALLY BID MEDICATION LIST REVIEWED AND RECONCILED WITH THE PATIENT PAST MEDICAL HISTORY LUPUS NEPHRITIS HYPERTENSION MIGRAINE HEADACHE HYPOTHYROIDISM LOW POTASSIUM ACID REFULX DEPRESSION ENV. ALLERGIES MORBID OBESITY ANTIPHOSPHOLIPID SYNDROME SJOGREN'S SYNDROME LYME DISEASE ANEURYSM NEUROPATHY- BULDGING DISCS ALLERGIES PRILOSEC: WORSENING HEART BURN - LACK OF THERAPEUTIC EFFECT CLINDAMYCIN HCL: NUMBING/TINGLING OF TONGUE - ALLERGY DOXYCYCLINE HYCLATE: RASH, GI UPSET - ALLERGY ULTRAM: TONGUE SWELLING - ALLERGY METHOTREXATE: NECK PAIN AND MIGRAINES - SIDE EFFECTS TOPAMAX 50: INCREASE IN CREATININE LEVELS - SIDE EFFECTS IMIPRAMINE HCL: INCREASED HEART RATE - SIDE EFFECTS ERYTHROMYCIN: RASH, GI UPSET - ALLERGY SURGICAL HISTORY TONSILLECTOMY 1976 LAPAROSCOPY 1994 INCARCERATED HERNIA 1998 CHOLECYSTECTOMY 2000 NOVASURE OR ESSURE 2009 HYSTERECTOMY 04/2019 LEFT FOOT HARDWARE REMOVAL 11/2017 LEFT FOOT RECONSTRUCTION 04/2017 NUMEROUS FEMALE PROCEDURES FAMILY HISTORY FATHER: ALIVE 66 YRS, NO KNOWN MEDICAL PROBLEMS MOTHER: ALIVE 67 YRS, FIBROMYALGIA, DM, NEWLY DIAGNOSED WITH LUPUS (2010), DIAGNOSED WITH DIABETES SIBLINGS: ALIVE, TWO HALF SISTERS, NO KNOWN MEDICAL PROBLEMS. ONE SHARES DAD, OTHER SHARES MOM MATERNAL GRAND FATHER: ALIVE 70'S YRS, GUILLIAN BARRE, HTN MATERNAL GRAND MOTHER: 50'S YRS, BREAST CANCER WITH METS TO BONE, DX IN 40 2 SISTER(S) . 1DAUGHTER(S) - HEALTHY. DENIES C/O CANCERS. MGGM-BREAST CANCER, DX LATER IN LIFE, OLD AGE. MA, JUL 20, SCLERODERMA. ANOTHER MATERNAL WITH RA. COUSIN WITH RA.MOTHER HAS LUPUS, FIBROMYALGIA, SIBLING HAS CROHN'S DISEASE. SOCIAL HISTORY GENERAL: TOBACCO USE ARE YOU A:NONSMOKER HIV / HEP-C SCREENING HIV TEST OFFERED TO PATIENT:YES DATE OFFERED:09/09/2017 TEST ACCEPTED:NO HEP-C TEST OFFERED TO PATIENT:NO REASON:PATIENT DECLINED OTHERS AT HOME: CHILD, 9 YR OLD DAUGHTER AND 3 DOGS. EDUCATION LEVEL OF EDUCATION:COLLEGE DIET: NO HX EATING DISORDERS. LANGUAGE LANGUAGES SPOKEN:AMERICAN DOMESTIC VIOLENCE DENIES SEXUAL, PHYSICAL ABUSE, VERBAL ABUSE. RECREATIONAL DRUG USE DENIES. EXERCISE: NO REGULAR EXERCISE. LEARNING BARRIERS / SPECIAL NEEDS BARRIERS TO LEARNING?NO HEARING IMPAIRED?NO VISION IMPAIRED?YES :CORRECTIVE LENSES GLASSES, ISSUES WITH EYESIGHT, DIFFICULTY READING AND WRITING COGNITIVELY IMPAIRED?NO READINESS TO LEARN?YES LEARNING PREFERENCES?NO LEARNING CAPABILITIES PRESENT?YES EMOTIONAL BARRIERS?NO SPECIAL DEVICES?YES :OTHER WALKING BOOT DESK REPORTER NEEDED?NO PAIN CLINIC PFS, CLERGY, PUBLIC HEALTH REFERRALS HAS THE PATIENT BEEN EDUCATED REGARDING HIS/HER PLAN OF CARE?YES HAS THE PATIENT BEEN EDUCATED REGARDING PAIN, THE RISK FOR PAIN, THE IMPORTANCE OF EFFECTIVE PAIN MANAGEMENT, AND THE PAIN ASSESSMENT PROCESS?YES PLEASE DOCUMENT ANY ADDTIONAL DETAILS. ORIENTED TO PAIN MANAGEMENT LATEX QUESTIONNAIRE LATEX ALLERGY : HAVE YOU EVER DEVELOPED ANY TYPE OF REACTION AFTER HANDLING LATEX PRODUCTS SUCH RUBBER GLOVES, CONDOMS, DIAPHRAGMS, BALLOONS, SOCKS, OR UNDERWEAR?NO LATEX ALLERGY : HAVE YOU EVER DEVELOPED ANY TYPE OF REACTION DURING OR AFTER DENTAL APPOINTMENT, VAGINAL/RECTAL EXAMINATION, SURGICAL PROCEDURE, OR ANY OTHER EXPOSURE?NO LATEX RISK : HAVE YOU EVER HAD ANY DIFFICULTY BREATHING OR HIVES AFTER EATING OR HANDLING ANY FRUITS, OR VEGETABLES; SUCH KIWI, BANANAS, STONE FRUITS, OR CHESTNUTSNO LATEX RISK : DO YOU HAVE A PREVIOUS PERSONAL HISTORY OF MORE THAN NINE SURGERIES, SPINA BIFIDA, OR REPEATED CATHERIZATIONS? NO LATEX RISK : ARE YOU FREQUENTLY EXPOSED TO LATEX PRODUCTS IN YOUR OCCUPATION?NO DATE ASKED : 08/27/2019 CAFFEINE CAFFEINE USE? SODA ADVANCE DIRECTIVE ADVANCE DIRECTIVE DISCUSSED WITH PATIENT:YES PT STATES THAT SHE HAS HCP, RESTORATIONIST [id number] RESTORATION MARITAL STATUS: . 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 REVIEWED WITH PATIENT 08/27/2019 DS. HOSPITALIZATION/MAJOR DIAGNOSTIC PROCEDURE PULMONARY EMBOLISM 01/2018 FOOT SURGERY 04/2017 HYSTERECTOMY 04/2019 GALL BLADDER REMOVED 04/2001 CHEST PAIN 2013 CHILD 2000 LOW WHITE BLOOD CELL COUNT 1992 REVIEW OF SYSTEMS REVIEWED BY: PROVIDER: DREW CARRERA MD . CONSTITUTIONAL: ANY CHANGE IN YOUR MEDICAL CONDITION? NO . CHILLS NO . FEVER NO . INFECTION: DO YOU HAVE NEW INFECTIONS? NO . DO YOU HAVE HISTORY OF MRSA? NO . MUSCULOSKELETAL: ANY NEW PATTERNS OF PAIN OR NUMBNESS? NO . SYTEMIC LUPUS NO . GASTROENTEROLOGY: ANY NEW CHANGE IN BOWEL CONTROL? YES . BARRETTS ESOPHAGUS NO . CIRRHOSIS NO . HEPATITIS NO . LIVER FAILURE NO . ACID REFLUX NO . UNEXPLAINED WEIGHT LOSS NO . GENITOURINARY: ANY NEW CHANGE IN BLADDER CONTROL? NO . IS THERE A CHANCE YOU COULD BE ? NO . HEMATOLOGY/LYMPH: DO YOU TAKE ANY BLOOD THINNERS? (FOR EXAMPLE- COUMADIN, PLAVIX, AGGRENOX, PLATEL, PRADAXA, OR XARELTO) COUMADIN . WHEN WAS YOUR LAST DOSE? DATE: TIME: . LOW PLATELET COUNT NO . SICKLE CELL DISEASE NO . VON WILLIEBRANDS NO . FACTOR V LEIDEN NO . THALLASEMIA NO . ANEMIA NO . EASY BRUISING NO . NEUROLOGY: HAVE YOU FALLEN IN THE PAST 12 MONTHS? YES . ANY NEW EXTREMITY NUMBNESS OR WEAKNESS? YES . HEAD INJURY NO . DEMENTIA NO . CEREBRAL PALSY NO . MULTIPLE SCLEROSIS NO . DIZZINESS NO . HEADACHE NO . STROKES NO . VERTIGO NO . CARDIOLOGY: DO YOU HAVE A PACEMAKER OR DEFIBRILLATOR? NO . ANGINA NO . HEART ATTACK NO . HEART SURGERY NO . CONGESTIVE HEART FAILURE/FLUID OVERLOAD NO . CHEST PAIN NO . HIGH BLOOD PRESSURE NO . IRREGULAR HEART BEAT NO . RESPIRATORY: HAVE YOU BEEN SICK IN THE PAST WEEK? NO . FEVER NO . FLU LIKE SYMPTOMS? NO . CPAP NO . BYPAP NO . ASTHMA NO . EMPHYSEMA NO . CHRONIC LUNG DISEASES NO . SHORTNESS OF BREATH ON EXERTION NO . COUGH NO . SNORING NO . INTEGUMENTARY: DO YOU HAVE ANY RASHES OR OPEN SORES? NO . ALLERGIC/IMMUNO: ARE YOU ALLERGIC TO IV DYE? NO . ANY NEW ALLERGIES? NO . PSYCHIATRIC: DO YOU HAVE THOUGHTS OF HURTING YOURSELF OR SOMEONE ELSE? NO . ARE YOU ABUSED, NEGLECTED, OR IN AN UNSAFE ENVIRONMENT? NO . ENDOCRINOLOGY: ARE YOU DIABETIC? NO . THYROID DISORDER NO . OTHER: DO YOU NEED ANY PRESCRIPTIONS? YES, METHOCARBAMOL . IF YES, PLEASE LIST: ____ . ANY NEW PROBLEMS WITH YOUR MEDICATIONS? NO . WHEN DID YOU LAST EAT? ____ . WHEN DID YOU LAST DRINK? ____ . WHAT DID YOU LAST DRINK? ____ . NAME OF PERSON DRIVING YOU HOME? ____ . DO YOU HAVE ANY OTHER QUESTIONS OR CONCERNS PT STATES THAT SHE HAS BEEN HAVING NEW MUSCULAR SKELETAL PAIN IN BACK AND CHEST. NEW CRAMPING IN LEGS AND FEET, SHOOTING FROM RIGHT HIP, NUMBING AND BURNING IN TOES . VITAL SIGNS WT 309 LBS, HT 67.5 IN, BMI 47.68 INDEX, BP 125/77 MM HG, HR 94 /MIN, RR 18 /MIN, TEMP 97.0 F, OXYGEN SAT % 99%, SAFE IN ENV? (Y/N) Y, NA INITIALS AW 1418, REVIEWED BY: RAMÍREZ. EXAMINATION GENERAL EXAMINATION: PATIENT IS ALERT O X 3 AND COOPERATIVE. LUNGS CLEAR, TO AUSCULTATION. HEART: NO MURMURS OR GALLOPS; FACIAL CRANIAL NERVES ARE GROSSLY NORMAL. GOOD SYMMETRY OF FACIAL MUSCLE MOVEMENT. NORMAL VISUAL FRYE. TENDERNESS AND PRESENCE OF BANDS OF TISSUE AND TRIGGER POINTS WITH RESTRICTION OF MOVEMENT OF THE SHOULDERS. TENDERNESS OVER THE PARASPINAL MUSCLE GROUP OF THE LOW BACK. PRESENCE OF BANDS OF TISSUE AND TRIGGER POINTS WITH RESTRICTION OF MOVEMENT OF THE LOW BACK. PAIN INCREASES OVER THE LUMBAR FACET JOINTS ON BOTH SIDES WITH EXTENSION AND LATERAL ROTATION OF THE BACK. TENDERNESS OVER THE RIGHT GREATER TROCHANTER OF THE FEMUR. MRI OF THE LUMBAR SPINE DONE ON 12/14/2018 SHOWS FACET ARTHROPATHY CHANGES AND A BULGING DISC AT MULTIPLE LEVELS. NOTES FROM [facility] FROM DR. PAYAN, REFERRING PHYSICIAN, IS PRESENT IN PATIENT'S CHART. ASSESSMENTS CHRONIC MIGRAINE - G43.709 (PRIMARY) PAIN IN THORACIC SPINE - M54.6 OTHER CHRONIC PAIN - G89.29 MYALGIA, OTHER SITE - M79.18 GREATER TROCHANTERIC BURSITIS OF RIGHT HIP - M70.61 PAIN OF MULTIPLE SITES - R52 HISTORY OF COUMADIN THERAPY - Z92.29 HISTORY OF PULMONARY EMBOLISM - Z86.711 HISTORY OF ANTIPHOSPHOLIPID SYNDROME - Z86.2 HISTORY OF LYME DISEASE - Z86.19 TREATMENT CHRONIC MIGRAINE CLINICAL NOTES: WE DISCUSSED SEVERAL ISSUES WITH MS. HENDRIX'S PAIN MANAGEMENT CASE. THE PATIENT WAS REFERRED TO OUR CLINIC FOR CHRONIC MIGRAINES, AND SHE MENTIONED SHE IS BEING TREATED BY DR. OCONNOR FOR CHRONIC MIGRAINES. THEREFORE, I ADVISED THE PATIENT TO CONTINUE SEEING DR. OCONNOR FOR HER CHRONIC MIGRAINES. I WILL REFER THE PATIENT TO [facility]'S PALLIATIVE CARE STAR PROGRAM TO CONSIDER MEDICATION MANAGEMENT FOR CHRONIC PAIN. AT THIS MOMENT THE PATIENT IS NOT A CANDIDATE FOR INTERVENTIONAL THERAPY. THE PATIENT WAS ADVISED TO CONSIDER INTERVENTIONS FOR HER OTHER PAIN CONCERNS IN THE FUTURE. SHE PREFER TO FOLLOW WITH US TO CONSIDER INTERVENTIONS IN THE FUTURE. THE PATIENT WILL FOLLOW UP WITH THE NURSE PRACTITIONER. INSTRUCTIONS WERE GIVEN, QUESTIONS WERE ANSWERED, PATIENT REPORTS UNDERSTANDING AND AGREES WITH THE PLAN. I, MICHELLE FONTANA, DOCUMENTED THE ABOVE INFORMATION ACTING A SCRIBE FOR DR. CARRERA. I HAVE REVIEWED THE ABOVE DOCUMENT, WRITTEN BY MICHELLE ANTONIO AND I VERIFY THAT IT IS ACCURATE. DEAR PAT PAYAN MD: THANK YOU FOR YOUR KIND REFERRAL OF BROOKS HENDRIX. IF YOU WANT TO DISCUSS HER CASE WITH ME PLEASE CALL ME AT THE PAIN CENTER AT [phone]. SINCERELY, DREW CARRERA MD PAIN MEDICINE . PROCEDURE CODES FA211 ESTABILISHED PATIENT [facility] CHARGE G8427 CURRENT MEDS W/DOSAGES DOCUMENTED G8730 PAIN ASSESS POS TOOL F/U PLAN DOC DISPOSITION & COMMUNICATION FOLLOW UP REASON: REFERRING TO PALLIATIVE CARE; F/UP WITH MANAGER NEONATAL ELECTRONICALLY SIGNED BY DREW CARRERA MD, MD ON 09/06/2019 AT 05:23 PM EST DISCLAIMER : THIS IS A VISIT SUMMARY EXTRACTED FROM THE [employer] [employer] CHART. IT IS NOT A COPY OF THE [employer] PROGRESS NOTE. MTDD
== END ==
LOC: M PAIN 14:00
PROVIDERS: ATTEND Anesthesiology
DX: G43.709 Chronic migraine without aura, not intractable, without status migrainosus (principal); G89.29 Other chronic pain; M54.6 Pain in thoracic spine; M79.18 Myalgia, other site; M70.61 Trochanteric bursitis, right hip; Z92.29 Personal history of other drug therapy; Z86.711 Personal history of pulmonary embolism; Z86.2 Personal history of diseases of the blood and blood-forming organs and certain disorders involving the immune mechanism; Z86.19 Personal history of other infectious and parasitic diseases; I10 Essential (primary) hypertension; E03.9 Hypothyroidism, unspecified; K21.9 Gastro-esophageal reflux disease without esophagitis; Z88.1 Allergy status to other antibiotic agents; Z88.8 Allergy status to other drugs, medicaments and biological substances; E66.01 Morbid (severe) obesity due to excess calories; Z68.42 Body mass index [BMI] 45.0-49.9, adult; Z79.899 Other long term (current) drug therapy

== ENCOUNTER → 2019-08-28 | Outpatient (CLI) | payer MEDICARE, MEDICAID ==
[2019-08-28 13:37] LABS: INR 2.63; PROTHROMBIN TIME 27.9 SECONDS (11.8-14.0)
== END ==
LOC: M LAB 12:38
PROVIDERS: ATTEND Internal Medicine Hematology & Oncology
DX: Z51.81 Encounter for therapeutic drug level monitoring (principal); Z79.01 Long term (current) use of anticoagulants

== ENCOUNTER → 2019-09-03 | Outpatient (CLI) | payer MEDICARE, MEDICAID ==
[2019-09-03 13:47] LABS: INR 2.72; PROTHROMBIN TIME 28.7 SECONDS (11.8-14.0)
== END ==
LOC: M LAB 12:24
PROVIDERS: ATTEND Internal Medicine Hematology & Oncology
DX: Z51.81 Encounter for therapeutic drug level monitoring (principal); Z79.01 Long term (current) use of anticoagulants; I26.99 Other pulmonary embolism without acute cor pulmonale; M32.9 Systemic lupus erythematosus, unspecified

== ENCOUNTER → 2019-09-10 | Outpatient (CLI) | payer MEDICARE, MEDICAID ==
[2019-09-10 10:55] LABS: INR 2.75
== END ==
LOC: M LAB 09:56
PROVIDERS: ATTEND Internal Medicine Hematology & Oncology
DX: Z79.01 Long term (current) use of anticoagulants (principal)

== ENCOUNTER → 2019-09-17 | Outpatient (CLI) | payer MEDICARE, MEDICAID ==
[2019-09-17 10:24] LABS: INR 2.91; PROTHROMBIN TIME 30.3 SECONDS (11.8-14.0)
== END ==
LOC: M LAB 09:52
PROVIDERS: ATTEND Internal Medicine Hematology & Oncology
DX: Z51.81 Encounter for therapeutic drug level monitoring (principal); Z79.01 Long term (current) use of anticoagulants; I26.99 Other pulmonary embolism without acute cor pulmonale; M32.9 Systemic lupus erythematosus, unspecified

== ENCOUNTER → 2019-09-24 | Outpatient (CLI) | payer MEDICARE, MEDICAID ==
[2019-09-24 12:40] LABS: BLOOD UREA NITROGEN 16 MG/DL (7-18); CALCIUM LEVEL 8.7 MG/DL (8.5-10.1); CARBON DIOXIDE LEVEL 30 MEQ/L (21-32); CHLORIDE LEVEL 107 MEQ/L (98-107); CREATININE FOR GFR 0.78 MG/DL (0.55-1.30); GLOMERULAR FILTRATION RATE > 60.0 (>58); GLUCOSE, FASTING 85 MG/DL (70-100); POTASSIUM SERUM 3.7 MEQ/L (3.5-5.1); SODIUM LEVEL 141 MEQ/L (136-145)
== END ==
LOC: M LAB 11:16
DX: I67.1 Cerebral aneurysm, nonruptured (principal)

== ENCOUNTER → 2019-09-24 | Outpatient (CLI) | payer MEDICARE, MEDICAID ==
[2019-09-24 12:24] LABS: INR 3.17; PROTHROMBIN TIME 32.5 SECONDS (11.8-14.0)
== END ==
LOC: M LAB 11:10
PROVIDERS: ATTEND Internal Medicine Hematology & Oncology
DX: Z51.81 Encounter for therapeutic drug level monitoring (principal); Z79.01 Long term (current) use of anticoagulants; I26.99 Other pulmonary embolism without acute cor pulmonale; M32.9 Systemic lupus erythematosus, unspecified

== ENCOUNTER → 2019-10-01 | Outpatient (CLI) | payer MEDICARE, MEDICAID ==
[2019-10-01 13:21] LABS: INR 2.62; PROTHROMBIN TIME 27.9 SECONDS (11.8-14.0)
== END ==
LOC: M LAB 11:27
PROVIDERS: ATTEND Internal Medicine Hematology & Oncology
DX: Z51.81 Encounter for therapeutic drug level monitoring (principal); Z79.01 Long term (current) use of anticoagulants

== ENCOUNTER → 2019-10-08 | Outpatient (CLI) | payer MEDICARE, MEDICAID ==
[2019-10-08 11:14] LABS: INR 2.82; PROTHROMBIN TIME 29.6 SECONDS (11.8-14.0)
== END ==
LOC: M LAB 10:19
PROVIDERS: ATTEND Internal Medicine Hematology & Oncology
DX: Z79.899 Other long term (current) drug therapy (principal); Z79.01 Long term (current) use of anticoagulants

== ENCOUNTER 2019-10-13 20:10 | Emergency (ER) | payer MEDICARE, MEDICAID ==
[~2019-10-13] VITALS: Ht 172.7 cm; Wt 143.2 kg
[2019-10-13 21:19] LABS: BASO % 0.2 % (0.0-1.0); EOS # 0.1 10^3/uL (0.0-0.5); EOS % 2.9 % (0.0-3.0); HEMATOCRIT 40.1 % (36.0-47.0); LYMPH # 0.6 10^3/uL (1.5-5.0); LYMPH % 14.7 % (24.0-44.0); MEAN CORPUSCULAR HEMOGLOBIN 25.7 pg (27.0-33.0); MEAN CORPUSCULAR HGB CONC 32.4 g/dl (32.0-36.5); MEAN CORPUSCULAR VOLUME 79.4 fl (80.0-96.0); MONO # 0.2 10^3/uL (0.0-0.8); MONO % 5.9 % (0.0-5.0); NEUTROPHILS # 3.1 10^3/uL (1.5-8.5); NEUTROPHILS % 75.8 % (36.0-66.0); PLATELET COUNT, AUTOMATED 160 10^3/uL (150-450); RED BLOOD COUNT 5.05 10^6/uL (4.00-5.40); WHITE BLOOD COUNT 4.1 10^3/uL (4.0-10.0)
[2019-10-13 21:55] LABS: ALBUMIN 3.5 GM/DL (3.2-5.2); ALT/SGPT 20 U/L (12-78); BILIRUBIN,DIRECT < 0.1 MG/DL (0.0-0.2); BILIRUBIN,TOTAL 0.3 MG/DL (0.2-1.0); CK-MB VALUE MASS < 1.0 NG/ML (<3.6); CPK CREATINE PHOSPHOKINASE 75 U/L (26-192); LIPASE 84 U/L (73-393); MB/CK RELATIVE INDEX 1.33 (< OR =4); TOTAL PROTEIN 7.4 GM/DL (6.4-8.2); TROPONIN I < 0.02 NG/ML (< 0.10)
--- NOTE | 2019-10-13 21:55 | ECGEPIP ---
[facility] - ED Test Date: 2019-10-13 Pat Name: BROOKS PARKINSON Department: Room: - Gender: Female Middle Card Tender: marion : 1970 Requested By: TOSHA Gallo Order Number: [id number] Reading MD: Alan Sahni Measurements Intervals [place] Rate: 68 P: -5 WI: 165 QRS: -27 QRSD: 113 T: -13 QT: 394 QTc: 419 Interpretive Statements SINUS RHYTHM MODERATE INTRAVENTRICULAR CONDUCTION DELAY Nonspecific T wave abnormality Electronically Signed on 10-13-2019 21:54:29 EDT by Alan Sahni
[2019-10-13] MEDS ORDERED: ISOVUE-370 76% 100ML VIAL (Q9967) As Ordered ONE (22:17)
--- NOTE | 2019-10-13 23:34 | REPVR ---
PROCEDURE INFORMATION: Exam: CT Abdomen And Pelvis With Contrast Exam date and time: 10/13/2019 10:44 PM Age: 49 years old Clinical indication: Generalized abdominal pain TECHNIQUE: Imaging protocol: Computed tomography of the abdomen and pelvis with intravenous contrast. Radiation optimization: All CT scans at this facility use at least one of these dose optimization techniques: automated exposure control; mA and/or kV adjustment per patient size (includes targeted exams where dose is matched to clinical indication); or iterative reconstruction. Contrast material: ISOVUE 370; Contrast volume: 100 ml; Contrast route: IV; COMPARISON: CT ABD/PEL W/IV CONTRAST ONLY 02/16/2019 6:46 AM FINDINGS: Lungs: The imaged portions of the lung bases are clear. Heart: No cardiomegaly or pericardial effusion. Diaphragm: Intact. Liver: Unremarkable. No liver lesion is identified. The contour of the liver is smooth. No hepatomegaly is noted. Gallbladder and bile ducts: There has been a cholecystectomy. There is no fluid collection in the gallbladder fossa. No dilation of the bile ducts is noted. Pancreas: Normal. No dilation of the main pancreatic duct is noted. There is no inflammatory fat stranding around the pancreas to suggest acute pancreatitis. Spleen: No splenic lesion is noted. The spleen is enlarged and measures 15.7 cm. There is a punctate calcification along the splenic capsule, which is unchanged compared to the prior CT on 02/16/2019. Adrenals: Normal. No adrenal mass is noted. Kidneys and ureters: The kidneys are normal in appearance. No renal lesion is noted. No calculi are seen in the kidneys or ureters. There is no hydronephrosis or hydroureter. There are no wedge-shaped areas of low attenuation in the kidneys to suggest pyelonephritis. There is no renal abscess or perinephric fluid collection. Stomach and bowel: There is no evidence for a bowel obstruction, strangulation, diverticulosis, diverticulitis, colitis, perforated viscus, pneumatosis intestinalis, intussusception, or volvulus. There is a moderate amount of formed stool in the colon. There is a 9 mm radiopaque object in the loop of small bowel in the left side of the abdomen (image 43 of the coronal series 202), which likely represents a pill. Appendix: Normal. There is no evidence for appendicitis. Intraperitoneal space: No free air. No fluid collection. Retroperitoneal space: No fluid collection. No mass. Vasculature: The abdominal aorta is patent, normal in caliber, and there is no dissection. The iliac arteries, common femoral arteries, renal arteries, celiac artery, superior mesenteric artery, and inferior mesenteric artery are patent. There are mild atherosclerotic calcifications. The portal veins, splenic vein, superior mesenteric vein, inferior mesenteric vein, and renal veins are patent. The main portal vein is dilated and measures 18 mm in diameter. The splenic vein is also dilated and measures 18 mm in diameter. Lymph nodes: No enlarged lymph nodes. Bladder: The urinary bladder is decompressed, limiting its optimal evaluation. No stones are seen in the bladder. Reproductive: There has been a hysterectomy. No adnexal mass is noted. Bones/joints: No fracture or dislocation is noted. There is no suspicious osteolytic or osteoblastic lesion. There are degenerative changes in the lumbar spine. There is sclerosis of both sacroiliac joints. Soft tissues: There is a small umbilical hernia containing a portion of a loop of small bowel (image 116 of the axial series 201). There is also a moderate size fat containing midline ventral hernia located approximately 5 cm above the umbilicus. IMPRESSION: 1. Small umbilical hernia containing a portion of a loop of small bowel. No bowel obstruction or strangulation. 2. Moderate size fat containing midline ventral hernia located approximately 5 cm above the umbilicus. 3. Splenomegaly. Electronically signed by: Joseph Levin On 10/13/2019 23:34:13 PM
[2019-10-14] MEDS ORDERED: ACETAMINOPHEN TAB 650MG DOSE (2X325MG) PO ONE
[2019-10-14 01:13] VITALS: BP 128/82
--- NOTE | 2019-10-14 14:46 | ED PDOC ---
Post-Departure Follow-Up hung campuzano faxed formal report of ct abd/p for fu Philippe Pathak MD Oct 14, 2019 14:46
== END 2019-10-14 01:23 | disposition home or self-care (01) ==
LOC: M ED 20:10
DX: M79.602 Pain in left arm (principal); R10.9 Unspecified abdominal pain; I45.89 Other specified conduction disorders; R16.1 Splenomegaly, not elsewhere classified; K43.9 Ventral hernia without obstruction or gangrene; K42.0 Umbilical hernia with obstruction, without gangrene; E03.9 Hypothyroidism, unspecified; I10 Essential (primary) hypertension; M32.9 Systemic lupus erythematosus, unspecified; Z86.711 Personal history of pulmonary embolism; Z86.79 Personal history of other diseases of the circulatory system; M35.00 Sjogren syndrome, unspecified; A69.20 Lyme disease, unspecified; Z79.01 Long term (current) use of anticoagulants; Z79.899 Other long term (current) drug therapy; Z88.1 Allergy status to other antibiotic agents; Z88.5 Allergy status to narcotic agent; Z88.8 Allergy status to other drugs, medicaments and biological substances
CPT/HCPCS: 74177; 80047; 80076; 81001; 82550; 82553; 83690; 84484; 85025; 93005; 93041; 99285; Q9967

== ENCOUNTER → 2019-10-13 | Outpatient (CLI) | payer MEDICARE, MEDICAID ==
[2019-10-13 12:40] LABS: BASO % 0.3 % (0.0-1.0); EOS # 0.1 10^3/uL (0.0-0.5); EOS % 3.2 % (0.0-3.0); HEMATOCRIT 40.9 % (36.0-47.0); HEMOGLOBIN 12.8 g/dl (12.0-15.5); LYMPH # 0.8 10^3/uL (1.5-5.0); LYMPH % 21.5 % (24.0-44.0); MEAN CORPUSCULAR HEMOGLOBIN 25.2 pg (27.0-33.0); MEAN CORPUSCULAR HGB CONC 31.3 g/dl (32.0-36.5); MEAN CORPUSCULAR VOLUME 80.7 fl (80.0-96.0); MONO # 0.3 10^3/uL (0.0-0.8); MONO % 7.2 % (0.0-5.0); NEUTROPHILS # 2.5 10^3/uL (1.5-8.5); NEUTROPHILS % 67.3 % (36.0-66.0); PLATELET COUNT, AUTOMATED 168 10^3/uL (150-450); RED BLOOD COUNT 5.07 10^6/uL (4.00-5.40); WHITE BLOOD COUNT 3.8 10^3/uL (4.0-10.0)
[2019-10-13 12:57] LABS: INR 3.21; PROTHROMBIN TIME 32.8 SECONDS (11.8-14.0)
== END ==
LOC: M LAB 12:25
PROVIDERS: ATTEND Internal Medicine Hematology & Oncology
DX: Z51.81 Encounter for therapeutic drug level monitoring (principal); Z79.01 Long term (current) use of anticoagulants; I26.99 Other pulmonary embolism without acute cor pulmonale; M32.9 Systemic lupus erythematosus, unspecified

== ENCOUNTER → 2019-10-19 | Outpatient (CLI) | payer MEDICARE, MEDICAID ==
[2019-10-19 12:49] LABS: INR 3.06; PROTHROMBIN TIME 31.5 SECONDS (11.8-14.0)
== END ==
LOC: M LAB 11:37
PROVIDERS: ATTEND Internal Medicine Hematology & Oncology
DX: Z79.01 Long term (current) use of anticoagulants (principal)

== ENCOUNTER → 2019-10-24 | Outpatient (REF) | payer MEDICARE, MEDICAID ==
[2019-10-24 17:31] LABS: INR 2.87
== END ==
LOC: M LABNEURO 11:37
PROVIDERS: ATTEND Internal Medicine Hematology & Oncology
DX: Z51.81 Encounter for therapeutic drug level monitoring (principal); Z79.01 Long term (current) use of anticoagulants; I26.99 Other pulmonary embolism without acute cor pulmonale; M32.9 Systemic lupus erythematosus, unspecified

== ENCOUNTER → 2019-10-29 | Outpatient (CLI) | payer MEDICARE, MEDICAID ==
[2019-10-29 13:16] LABS: INR 2.68; PROTHROMBIN TIME 28.4 SECONDS (11.8-14.0)
== END ==
LOC: M LABNEURO 08:00
PROVIDERS: ATTEND Internal Medicine Hematology & Oncology
DX: Z79.01 Long term (current) use of anticoagulants (principal)

== ENCOUNTER → 2019-11-05 | Outpatient (REF) | payer MEDICARE, MEDICAID ==
[2019-11-05 14:13] LABS: INR 3.27; PROTHROMBIN TIME 33.3 SECONDS (11.8-14.0)
== END ==
LOC: M LABNEURO 10:53
PROVIDERS: ATTEND Internal Medicine Hematology & Oncology
DX: Z79.01 Long term (current) use of anticoagulants (principal); I26.99 Other pulmonary embolism without acute cor pulmonale; M32.9 Systemic lupus erythematosus, unspecified

== ENCOUNTER → 2019-11-12 | Outpatient (CLI) | payer MEDICARE, MEDICAID ==
[2019-11-12 12:36] LABS: INR 2.75; PROTHROMBIN TIME 28.9 SECONDS (11.8-14.0)
== END ==
LOC: M LAB 12:03
PROVIDERS: ATTEND Internal Medicine Hematology & Oncology
DX: I26.99 Other pulmonary embolism without acute cor pulmonale (principal); M32.9 Systemic lupus erythematosus, unspecified; Z79.01 Long term (current) use of anticoagulants

== ENCOUNTER → 2019-11-19 | Outpatient (CLI) | payer MEDICARE, MEDICAID ==
[2019-11-19 14:01] LABS: INR 2.86; PROTHROMBIN TIME 29.9 SECONDS (11.8-14.0)
== END ==
LOC: M LAB 12:52
PROVIDERS: ATTEND Internal Medicine Hematology & Oncology
DX: Z51.81 Encounter for therapeutic drug level monitoring (principal); Z79.01 Long term (current) use of anticoagulants; I26.99 Other pulmonary embolism without acute cor pulmonale; M32.9 Systemic lupus erythematosus, unspecified

== ENCOUNTER → 2019-11-19 | Outpatient (CLI) | payer MEDICARE, MEDICAID ==
[2019-11-19 13:38] LABS: APPEARANCE, URINE HAZY (CLEAR); BACTERIA, URINE AUTO NEGATIVE (NEGATIVE); BILIRUBIN, URINE AUTO NEGATIVE (NEGATIVE); BLOOD, URINE BLOOD NEGATIVE (NEGATIVE); COLOR, URINE YELLOW (YELLOW); GLUCOSE, URINE (UA) AUTO NEGATIVE (NEGATIVE); KETONE, URINE AUTO NEGATIVE (NEGATIVE); LEUKOCYTE ESTERASE, URINE AUTO TRACE (NEGATIVE); NITRITE, URINE AUTO NEGATIVE (NEGATIVE); PROTEIN, URINE AUTO NEGATIVE (NEGATIVE); RBC, URINE AUTO 1 /HPF (0-3); SPECIFIC GRAVITY URINE AUTO 1.005 (1.002-1.035); SQUAMOUS EPITHELIAL CELL UR AU 1 /HPF (0-6); UROBILINOGEN, URINE AUTO 0.2 mg/dL (0.0-2.0); WBC, URINE AUTO 1 /HPF (0-3)
[2019-11-19 13:51] LABS: BASO % 0.5 % (0.0-1.0); EOS # 0.2 10^3/uL (0.0-0.5); EOS % 3.2 % (0.0-3.0); HEMATOCRIT 43.2 % (36.0-47.0); HEMOGLOBIN 13.7 g/dl (12.0-15.5); LYMPH # 1.4 10^3/uL (1.5-5.0); LYMPH % 25.4 % (24.0-44.0); MEAN CORPUSCULAR HEMOGLOBIN 25.7 pg (27.0-33.0); MEAN CORPUSCULAR HGB CONC 31.7 g/dl (32.0-36.5); MEAN CORPUSCULAR VOLUME 80.9 fl (80.0-96.0); MONO # 0.4 10^3/uL (0.0-0.8); MONO % 7.7 % (0.0-5.0); NEUTROPHILS # 3.5 10^3/uL (1.5-8.5); NEUTROPHILS % 62.5 % (36.0-66.0); PLATELET COUNT, AUTOMATED 193 10^3/uL (150-450); RED BLOOD COUNT 5.34 10^6/uL (4.00-5.40); WHITE BLOOD COUNT 5.6 10^3/uL (4.0-10.0)
[2019-11-19 14:11] LABS: TOTAL PROTEIN,RANDOM URINE 5.6 MG/DL (0.0-12.0)
[2019-11-19 14:21] LABS: ERYTHROCYTE SEDIMENTATION RATE 9 mm/hr (0-20)
[2019-11-19 14:28] LABS: ALBUMIN 3.6 GM/DL (3.2-5.2); ALT/SGPT 21 U/L (12-78); BILIRUBIN,TOTAL 0.4 MG/DL (0.2-1.0); BLOOD UREA NITROGEN 12 MG/DL (7-18); C REACTIVE PROTEIN QUANTITATIV < 0.30 MG/DL (0.00-0.30); CALCIUM LEVEL 8.7 MG/DL (8.5-10.1); CARBON DIOXIDE LEVEL 28 MEQ/L (21-32); CHLORIDE LEVEL 106 MEQ/L (98-107); COMPLEMENT C3 95 MG/DL (90-180); COMPLEMENT C4 18 MG/DL (10-40); GLOMERULAR FILTRATION RATE > 60.0 (>58); GLUCOSE, FASTING 81 MG/DL (70-100); POTASSIUM SERUM 3.1 MEQ/L (3.5-5.1); SODIUM LEVEL 140 MEQ/L (136-145); TOTAL PROTEIN 7.7 GM/DL (6.4-8.2)
== END ==
LOC: M LAB 12:46
PROVIDERS: ATTEND Internal Medicine
DX: M32.9 Systemic lupus erythematosus, unspecified (principal)

== ENCOUNTER → 2019-11-26 | Outpatient (CLI) | payer MEDICARE, MEDICAID ==
[2019-11-26 15:26] LABS: INR 2.78; PROTHROMBIN TIME 29.3 SECONDS (11.8-14.0)
== END ==
LOC: M PLALAB 13:24
PROVIDERS: ATTEND Internal Medicine Hematology & Oncology
DX: Z51.81 Encounter for therapeutic drug level monitoring (principal); Z79.01 Long term (current) use of anticoagulants; I26.09 Other pulmonary embolism with acute cor pulmonale; M32.9 Systemic lupus erythematosus, unspecified

== ENCOUNTER → 2019-12-03 | Outpatient (CLI) | payer MEDICARE, MEDICAID ==
[2019-12-03 13:13] LABS: INR 2.82; PROTHROMBIN TIME 29.6 SECONDS (11.8-14.0)
== END ==
LOC: M LAB 11:00
PROVIDERS: ATTEND Internal Medicine Hematology & Oncology
DX: I26.99 Other pulmonary embolism without acute cor pulmonale (principal); M32.9 Systemic lupus erythematosus, unspecified; Z79.01 Long term (current) use of anticoagulants

== ENCOUNTER → 2019-12-10 | Outpatient (CLI) | payer MEDICARE, MEDICAID ==
[2019-12-10 14:00] LABS: INR 2.72; PROTHROMBIN TIME 28.7 SECONDS (11.8-14.0)
== END ==
LOC: M LAB 13:27
PROVIDERS: ATTEND Internal Medicine Hematology & Oncology
DX: M32.9 Systemic lupus erythematosus, unspecified (principal); I26.99 Other pulmonary embolism without acute cor pulmonale; Z79.01 Long term (current) use of anticoagulants

== ENCOUNTER → 2019-12-20 | Outpatient (CLI) | payer MEDICARE, MEDICAID ==
[2019-12-20 11:00] LABS: INR 2.9; PROTHROMBIN TIME 30.2 SECONDS (11.8-14.0)
== END ==
LOC: M LAB 10:05
PROVIDERS: ATTEND Internal Medicine Hematology & Oncology
DX: Z51.81 Encounter for therapeutic drug level monitoring (principal); Z79.01 Long term (current) use of anticoagulants

== ENCOUNTER → 2020-01-01 | Outpatient (CLI) | payer MEDICARE, MEDICAID ==
[2020-01-01 11:59] LABS: INR 2.81; PROTHROMBIN TIME 29.5 SECONDS (11.8-14.0)
== END ==
LOC: M LAB 11:11
PROVIDERS: ATTEND Internal Medicine Hematology & Oncology
DX: Z51.81 Encounter for therapeutic drug level monitoring (principal); Z79.01 Long term (current) use of anticoagulants

== ENCOUNTER → 2020-01-14 | Outpatient (CLI) | payer MEDICARE, MEDICAID ==
[2020-01-14 13:09] LABS: INR 2.72; PROTHROMBIN TIME 28.7 SECONDS (11.8-14.0)
== END ==
LOC: M LAB 11:27
PROVIDERS: ATTEND Internal Medicine Hematology & Oncology
DX: I26.99 Other pulmonary embolism without acute cor pulmonale (principal); M32.9 Systemic lupus erythematosus, unspecified; Z79.01 Long term (current) use of anticoagulants

== ENCOUNTER → 2020-01-28 | Outpatient (CLI) | payer MEDICARE, MEDICAID ==
[2020-01-28 13:25] LABS: INR 2.9; PROTHROMBIN TIME 30.2 SECONDS (11.8-14.0)
== END ==
LOC: M LAB 12:32
PROVIDERS: ATTEND Internal Medicine Hematology & Oncology
DX: Z79.01 Long term (current) use of anticoagulants (principal); I26.99 Other pulmonary embolism without acute cor pulmonale; M32.9 Systemic lupus erythematosus, unspecified

== ENCOUNTER → 2020-02-03 | Outpatient (CLI) | payer MEDICARE, MEDICAID ==
[2020-02-03 16:41] LABS: INR 2.88; PROTHROMBIN TIME 30.1 SECONDS (11.8-14.0)
== END ==
LOC: M LAB 15:57
PROVIDERS: ATTEND Internal Medicine Hematology & Oncology
DX: I26.99 Other pulmonary embolism without acute cor pulmonale (principal); M32.9 Systemic lupus erythematosus, unspecified; Z79.01 Long term (current) use of anticoagulants

== ENCOUNTER → 2020-02-07 | Outpatient (CLI) | payer MEDICARE, MEDICAID ==
[~2020-02-07] MED LIST changes: +ALBU8.5H; +BISO5TAB2; +BUDE10.22; +CALC250T; +D31000TA2; +DEXI60CA2; +FLUTISP; +MAGN200T; +METH1TAB40
[2020-02-07 14:02] LABS: INR 2.63
== END ==
LOC: M LAB 13:08
PROVIDERS: ATTEND Internal Medicine Hematology & Oncology
DX: I26.99 Other pulmonary embolism without acute cor pulmonale (principal); M32.9 Systemic lupus erythematosus, unspecified; Z79.01 Long term (current) use of anticoagulants

== ENCOUNTER → 2020-02-18 | Outpatient (CLI) | payer MEDICARE, MEDICAID ==
[2020-02-18 15:55] LABS: INR 2.96; PROTHROMBIN TIME 30.7 SECONDS (11.8-14.0)
== END ==
LOC: M LAB 14:50
PROVIDERS: ATTEND Internal Medicine Hematology & Oncology
DX: I26.99 Other pulmonary embolism without acute cor pulmonale (principal); M32.9 Systemic lupus erythematosus, unspecified; Z79.01 Long term (current) use of anticoagulants

== ENCOUNTER → 2020-03-03 | Outpatient (CLI) | payer MEDICARE, MEDICAID ==
[2020-04-06 03:28] LABS: BASO % 0.5 % (0.0-1.0); EOS # 0.1 10^3/uL (0.0-0.5); EOS % 1.7 % (0.0-3.0); HEMATOCRIT 42.2 % (36.0-47.0); HEMOGLOBIN 13.2 g/dl (12.0-15.5); LYMPH # 0.7 10^3/uL (1.5-5.0); LYMPH % 10.6 % (24.0-44.0); MEAN CORPUSCULAR HEMOGLOBIN 25.3 pg (27.0-33.0); MEAN CORPUSCULAR HGB CONC 31.3 g/dl (32.0-36.5); MEAN CORPUSCULAR VOLUME 80.8 fl (80.0-96.0); MONO # 0.5 10^3/uL (0.0-0.8); MONO % 7.7 % (0.0-5.0); NEUTROPHILS % 78.6 % (36.0-66.0); PLATELET COUNT, AUTOMATED 189 10^3/uL (150-450); RED BLOOD COUNT 5.22 10^6/uL (4.00-5.40); WHITE BLOOD COUNT 6.4 10^3/uL (4.0-10.0)
[2020-05-20 09:23] LABS: GLUCOSE, FASTING SEE SEPARATE REPORT
== END ==
LOC: M LAB 13:01
PROVIDERS: ATTEND Internal Medicine
DX: Z79.899 Other long term (current) drug therapy (principal); Z79.01 Long term (current) use of anticoagulants

== ENCOUNTER → 2020-03-03 | Outpatient (CLI) | payer MEDICARE, MEDICAID ==
[2020-04-06 02:59] LABS: PROTHROMBIN TIME 31.4 SECONDS (11.8-14.0)
[2020-04-06 03:00] LABS: INR 2.95
== END ==
LOC: M LAB 13:07
PROVIDERS: ATTEND Internal Medicine Hematology & Oncology
DX: I26.99 Other pulmonary embolism without acute cor pulmonale (principal); M32.9 Systemic lupus erythematosus, unspecified; Z79.01 Long term (current) use of anticoagulants

== ENCOUNTER → 2020-03-31 | Outpatient (CLI) | payer MEDICARE, MEDICAID ==
[2020-03-31 18:02] LABS: BASO % 0.2 % (0.0-1.0); EOS # 0.1 10^3/uL (0.0-0.5); EOS % 2.2 % (0.0-3.0); HEMATOCRIT 37.6 % (36.0-47.0); HEMOGLOBIN 11.9 g/dl (12.0-15.5); LYMPH # 0.6 10^3/uL (1.5-5.0); LYMPH % 10.8 % (24.0-44.0); MEAN CORPUSCULAR HEMOGLOBIN 25.5 pg (27.0-33.0); MEAN CORPUSCULAR HGB CONC 31.6 g/dl (32.0-36.5); MEAN CORPUSCULAR VOLUME 80.7 fl (80.0-96.0); MONO # 0.3 10^3/uL (0.0-0.8); MONO % 6.3 % (0.0-5.0); NEUTROPHILS # 4.1 10^3/uL (1.5-8.5); NEUTROPHILS % 80.1 % (36.0-66.0); PLATELET COUNT, AUTOMATED 187 10^3/uL (150-450); RED BLOOD COUNT 4.66 10^6/uL (4.00-5.40); WHITE BLOOD COUNT 5.1 10^3/uL (4.0-10.0)
[2020-03-31 18:27] LABS: ALBUMIN 3.5 GM/DL (3.2-5.2); ALT/SGPT 19 U/L (12-78); BILIRUBIN,TOTAL 0.4 MG/DL (0.2-1.0); BLOOD UREA NITROGEN 11 MG/DL (7-18); CALCIUM LEVEL 8.6 MG/DL (8.5-10.1); CARBON DIOXIDE LEVEL 29 MEQ/L (21-32); CHLORIDE LEVEL 106 MEQ/L (98-107); GLOMERULAR FILTRATION RATE > 60.0 (>51); GLUCOSE, FASTING 106 MG/DL (70-100); POTASSIUM SERUM 3.7 MEQ/L (3.5-5.1); SODIUM LEVEL 141 MEQ/L (136-145); TOTAL PROTEIN 6.9 GM/DL (6.4-8.2)
== END ==
LOC: M LAB 17:07
PROVIDERS: ATTEND Internal Medicine
DX: Z79.899 Other long term (current) drug therapy (principal); Z79.01 Long term (current) use of anticoagulants

== ENCOUNTER → 2020-03-31 | Outpatient (CLI) | payer MEDICARE, MEDICAID ==
[2020-03-31 18:15] LABS: INR 2.68; PROTHROMBIN TIME 29.1 SECONDS (11.8-14.0)
== END ==
LOC: M LAB 17:04
PROVIDERS: ATTEND Internal Medicine Hematology & Oncology
DX: I26.99 Other pulmonary embolism without acute cor pulmonale (principal); M32.9 Systemic lupus erythematosus, unspecified; Z79.01 Long term (current) use of anticoagulants

== ENCOUNTER → 2020-04-14 | Outpatient (CLI) | payer MEDICARE, MEDICAID ==
[2020-04-14 13:42] LABS: BASO % 0.2 % (0.0-1.0); EOS # 0.1 10^3/uL (0.0-0.5); EOS % 2.7 % (0.0-3.0); HEMATOCRIT 40.1 % (36.0-47.0); HEMOGLOBIN 12.7 g/dl (12.0-15.5); LYMPH # 0.8 10^3/uL (1.5-5.0); LYMPH % 19.3 % (24.0-44.0); MEAN CORPUSCULAR HEMOGLOBIN 25.6 pg (27.0-33.0); MEAN CORPUSCULAR HGB CONC 31.7 g/dl (32.0-36.5); MEAN CORPUSCULAR VOLUME 80.7 fl (80.0-96.0); MONO # 0.3 10^3/uL (0.0-0.8); MONO % 7.6 % (0.0-5.0); NEUTROPHILS # 2.9 10^3/uL (1.5-8.5); NEUTROPHILS % 69.7 % (36.0-66.0); PLATELET COUNT, AUTOMATED 158 10^3/uL (150-450); RED BLOOD COUNT 4.97 10^6/uL (4.00-5.40); WHITE BLOOD COUNT 4.1 10^3/uL (4.0-10.0)
[2020-04-14 14:12] LABS: ALBUMIN 3.4 GM/DL (3.2-5.2); ALT/SGPT 21 U/L (12-78); BILIRUBIN,TOTAL 0.3 MG/DL (0.2-1.0); BLOOD UREA NITROGEN 17 MG/DL (7-18); CALCIUM LEVEL 9.2 MG/DL (8.5-10.1); CARBON DIOXIDE LEVEL 31 MEQ/L (21-32); CHLORIDE LEVEL 106 MEQ/L (98-107); CREATININE FOR GFR 0.85 MG/DL (0.55-1.30); GLOMERULAR FILTRATION RATE > 60.0 (>51); GLUCOSE, FASTING 86 MG/DL (70-100); POTASSIUM SERUM 3.9 MEQ/L (3.5-5.1); SODIUM LEVEL 139 MEQ/L (136-145); TOTAL PROTEIN 7.3 GM/DL (6.4-8.2)
== END ==
LOC: M LAB 12:49
PROVIDERS: ATTEND Internal Medicine
DX: I26.99 Other pulmonary embolism without acute cor pulmonale (principal); M32.9 Systemic lupus erythematosus, unspecified; Z79.01 Long term (current) use of anticoagulants

== ENCOUNTER → 2020-04-14 | Outpatient (CLI) | payer MEDICARE, MEDICAID ==
[2020-04-14 13:54] LABS: INR 2.49; PROTHROMBIN TIME 27.5 SECONDS (11.8-14.0)
== END ==
LOC: M LAB 12:47
PROVIDERS: ATTEND Internal Medicine Hematology & Oncology
DX: I26.99 Other pulmonary embolism without acute cor pulmonale (principal); M32.9 Systemic lupus erythematosus, unspecified; Z79.01 Long term (current) use of anticoagulants

== ENCOUNTER → 2020-04-28 | Outpatient (CLI) | payer MEDICARE, MEDICAID ==
[2020-04-28 13:30] LABS: ALT/SGPT 23 U/L (12-78); BILIRUBIN,TOTAL 0.3 MG/DL (0.2-1.0); BLOOD UREA NITROGEN 19 MG/DL (7-18); CALCIUM LEVEL 8.6 MG/DL (8.5-10.1); CARBON DIOXIDE LEVEL 27 MEQ/L (21-32); CHLORIDE LEVEL 108 MEQ/L (98-107); CHOLESTEROL LEVEL 162 MG/DL (<200); CHOLESTEROL RISK RATIO 3.306 (<5); CREATININE FOR GFR 0.74 MG/DL (0.55-1.30); GLOMERULAR FILTRATION RATE > 60.0 (>51); GLUCOSE, FASTING 87 MG/DL (70-100); HDL CHOLESTEROL 49 MG/DL (>40); LDL CHOLESTEROL 97 MG/DL (<100); NON-HDL-C 113 MG/DL; POTASSIUM SERUM 3.8 MEQ/L (3.5-5.1); SODIUM LEVEL 143 MEQ/L (136-145); TOTAL 25(OH) VITAMIN D 33.8 NG/ML (30.0-100.0); TOTAL PROTEIN 6.7 GM/DL (6.4-8.2); TRIGLYCERIDES LEVEL 81 MG/DL (<150)
[2020-04-28 13:35] LABS: HEMOGLOBIN A1c 5.4 %
--- NOTE | 2020-05-01 16:48 | REP ---
CT CHEST WITHOUT CONTRAST HISTORY: Systemic lupus erythematosus. History of lung nodule. COMPARISON: Comparison chest CT study is from June 27, 2019. CT FINDINGS: Digital preliminary sample prep technician radiograph is unremarkable. There is no evidence of pleural or pericardial effusion. No hilar or mediastinal mass or adenopathy is seen. No infiltrate or interstitial lung disease is seen. No pulmonary nodule is appreciated. There is a small quantity of air in the esophagus. The esophagus is otherwise unremarkable. The gallbladder is surgically absent. No adrenal lesion is seen. There is a small accessory splenule adjacent to the tail of the pancreas. No bony destructive lesion is appreciated. There is a stable very subtle 4 mm subpleural nodule along the major fissure on the left, unchanged. This is benign. IMPRESSION: No acute disease. MTDD
== END ==
LOC: M LAB 09:43
PROVIDERS: ATTEND Internal Medicine
DX: M32.9 Systemic lupus erythematosus, unspecified (principal); E66.01 Morbid (severe) obesity due to excess calories; R91.1 Solitary pulmonary nodule; Z79.899 Other long term (current) drug therapy

== ENCOUNTER → 2020-04-28 | Outpatient (CLI) | payer MEDICARE, MEDICAID ==
[2020-04-28 13:08] LABS: INR 3.27
== END ==
LOC: M LAB 10:01
PROVIDERS: ATTEND Internal Medicine Hematology & Oncology
DX: I26.99 Other pulmonary embolism without acute cor pulmonale (principal); M32.9 Systemic lupus erythematosus, unspecified; Z79.01 Long term (current) use of anticoagulants

== ENCOUNTER → 2020-04-28 | Outpatient (CLI) | payer MEDICARE, MEDICAID ==
[2020-04-28 12:57] LABS: APPEARANCE, URINE HAZY (CLEAR); BACTERIA, URINE AUTO NEGATIVE (NEGATIVE); BASO % 0.2 % (0.0-1.0); BILIRUBIN, URINE AUTO NEGATIVE (NEGATIVE); BLOOD, URINE BLOOD NEGATIVE (NEGATIVE); COLOR, URINE YELLOW (YELLOW); EOS # 0.1 10^3/uL (0.0-0.5); EOS % 3.5 % (0.0-3.0); GLUCOSE, URINE (UA) AUTO NEGATIVE (NEGATIVE); HEMATOCRIT 38.3 % (36.0-47.0); KETONE, URINE AUTO NEGATIVE (NEGATIVE); LEUKOCYTE ESTERASE, URINE AUTO NEGATIVE (NEGATIVE); LYMPH # 0.7 10^3/uL (1.5-5.0); LYMPH % 18.3 % (24.0-44.0); MEAN CORPUSCULAR HEMOGLOBIN 25.2 pg (27.0-33.0); MEAN CORPUSCULAR HGB CONC 31.3 g/dl (32.0-36.5); MEAN CORPUSCULAR VOLUME 80.3 fl (80.0-96.0); MONO # 0.3 10^3/uL (0.0-0.8); MONO % 7.2 % (0.0-5.0); NEUTROPHILS # 2.8 10^3/uL (1.5-8.5); NEUTROPHILS % 70.1 % (36.0-66.0); NITRITE, URINE AUTO NEGATIVE (NEGATIVE); PLATELET COUNT, AUTOMATED 158 10^3/uL (150-450); PROTEIN, URINE AUTO NEGATIVE (NEGATIVE); RBC, URINE AUTO 2 /HPF (0-3); RED BLOOD COUNT 4.77 10^6/uL (4.00-5.40); SPECIFIC GRAVITY URINE AUTO 1.008 (1.002-1.035); SQUAMOUS EPITHELIAL CELL UR AU 1 /HPF (0-6); UROBILINOGEN, URINE AUTO 0.2 mg/dL (0.0-2.0); WBC, URINE AUTO 0 /HPF (0-3); WHITE BLOOD COUNT 4.1 10^3/uL (4.0-10.0)
[2020-04-28 13:20] LABS: TOTAL PROTEIN,RANDOM URINE 8.3 MG/DL (0.0-12.0)
[2020-04-28 13:23] LABS: ALBUMIN 3.1 GM/DL (3.2-5.2); ALT/SGPT 22 U/L (12-78); BILIRUBIN,TOTAL 0.3 MG/DL (0.2-1.0); BLOOD UREA NITROGEN 19 MG/DL (7-18); CALCIUM LEVEL 8.6 MG/DL (8.5-10.1); CARBON DIOXIDE LEVEL 28 MEQ/L (21-32); CHLORIDE LEVEL 108 MEQ/L (98-107); COMPLEMENT C3 96 MG/DL (90-180); COMPLEMENT C4 17 MG/DL (10-40); CREATININE FOR GFR 0.75 MG/DL (0.55-1.30); GLOMERULAR FILTRATION RATE > 60.0 (>51); GLUCOSE, FASTING 86 MG/DL (70-100); POTASSIUM SERUM 3.7 MEQ/L (3.5-5.1); SODIUM LEVEL 142 MEQ/L (136-145); TOTAL PROTEIN 6.7 GM/DL (6.4-8.2)
[2020-04-28 13:42] LABS: ERYTHROCYTE SEDIMENTATION RATE 13 mm/hr (0-30)
[2020-05-01 15:09] LABS: ANTI DS-DNA AB Positive (Negative)
== END ==
LOC: M RAD 09:38
PROVIDERS: ATTEND Internal Medicine
DX: R91.1 Solitary pulmonary nodule (principal); M65.9 Synovitis and tenosynovitis, unspecified; Z79.899 Other long term (current) drug therapy

== ENCOUNTER → 2020-05-05 | Outpatient (CLI) | payer MEDICARE, MEDICAID ==
[2020-05-05 12:17] LABS: INR 2.81; PROTHROMBIN TIME 30.2 SECONDS (12.5-14.3)
== END ==
LOC: M LAB 10:29
PROVIDERS: ATTEND Internal Medicine Hematology & Oncology
DX: I26.99 Other pulmonary embolism without acute cor pulmonale (principal); M32.9 Systemic lupus erythematosus, unspecified; Z79.01 Long term (current) use of anticoagulants

== ENCOUNTER → 2020-05-16 | Outpatient (CLI) | payer MEDICARE, MEDICAID ==
[2020-05-16 11:17] LABS: INR 2.54; PROTHROMBIN TIME 27.9 SECONDS (12.5-14.3)
== END ==
LOC: M LAB 10:26
PROVIDERS: ATTEND Internal Medicine Hematology & Oncology
DX: Z51.81 Encounter for therapeutic drug level monitoring (principal); Z79.01 Long term (current) use of anticoagulants

== ENCOUNTER → 2020-05-21 | Outpatient (CLI) | payer MEDICARE, MEDICAID | LOC: M LABSMTC 11:30 | PROVIDERS: ATTEND Anesthesiology | DX: Z01.812 Encounter for preprocedural laboratory examination (principal); Z20.828 Contact with and (suspected) exposure to other viral communicable diseases | CPT/HCPCS: C9803; U0003 ==

== ENCOUNTER 2020-05-26 12:06 | Day surgery (SDC) | payer MEDICARE, MEDICAID ==
[~2020-05-26] VITALS: Ht 172.7 cm; Wt 151.0 kg
[~2020-05-26 12:06] MED LIST changes: +NS 1,000 ML IV ONE
[2020-05-26] MEDS ORDERED: fentaNYL 100 MCG/2 ML INJECTION (J3010) As Ordered ONE (13:42)
[2020-05-26] MEDS ORDERED: LIDOCAINE 2% 100MG/5ML SDV (FOR ANES.) As Ordered ONE (13:58)
[2020-05-26] MEDS ORDERED: propofoL 200 MG/20 ML VIAL As Ordered ONE ×2 (13:58→14:11)
--- NOTE | 2020-05-26 13:58 | ROOR ---
Patient Name: Rosetta Brown Procedure Date: 05/26/2020 1:39 PM Date of : 1970 Age: 50 Room: [facility] Gender: Female Note Status: Finalized Procedure: Upper GI endoscopy Indications: Heartburn Providers: Alan GORDILLO MD Referring MD: Taco Huff Requesting Provider: Medicines: Monitored Anesthesia Care Complications: No immediate complications. Procedure: Pre-Anesthesia Assessment: - The heart rate, respiratory rate, oxygen saturations, blood pressure, adequacy of pulmonary ventilation, and response to care were monitored throughout the procedure. The Endoscope was introduced through the mouth, and advanced to the second part of duodenum. The upper GI endoscopy was accomplished without difficulty. The patient tolerated the procedure well. Findings: The examined esophagus was normal. A single 4 mm semi-sessile polyp was found in the cardia. Biopsies were taken with a cold forceps for histology. Mildly erythematous mucosa without bleeding was found in the gastric antrum. Biopsies were taken with a cold forceps for histology. The exam was otherwise without abnormality. Impression: - A single gastric polyp in the cardia. Biopsied. - Three small erythematous mucosa/minimal gastritis in the antrum. Biopsied. - The examination was otherwise normal. Recommendation: - Telephone endoscopist for pathology results in 2 weeks. - Continue present medications. Alan Gordillo MD Alan GORDILLO MD 05/26/2020 1:57:36 PM Electronically signed by Alan GORDILLO MD Number of Addenda: 0 Note Initiated On: 05/26/2020 1:39 PM Estimated Blood Loss: Estimated blood loss: none.
--- NOTE | 2020-05-26 14:13 | ROOR ---
Patient Name: Rosetta Brown Procedure Date: 05/26/2020 1:40 PM Date of : 1970 Age: 50 Room: [facility] Gender: Female Note Status: Finalized Procedure: Colonoscopy Indications: Screening for colorectal malignant neoplasm Providers: Alan GORDILLO MD Referring MD: Taco Huff Requesting Provider: Medicines: Monitored Anesthesia Care Complications: No immediate complications. Procedure: Pre-Anesthesia Assessment: - The heart rate, respiratory rate, oxygen saturations, blood pressure, adequacy of pulmonary ventilation, and response to care were monitored throughout the procedure. The Colonoscope was introduced through the anus and advanced to the terminal ileum, with identification of the appendiceal orifice and IC valve. The colonoscopy was performed without difficulty. The patient tolerated the procedure well. The quality of the bowel preparation was good. Findings: The perianal and digital rectal examinations were normal. Small Internal Hemorrhoids. The entire examined colon appeared normal on direct and retroflexion views. Impression: - Small Internal Hemorrhoids. - The entire colon is normal on direct and retroflexion views. - No specimens collected. Recommendation: - Repeat colonoscopy in 10 years for screening purposes. Alan Gordillo MD Alan GORDILLO MD 05/26/2020 2:13:09 PM Electronically signed by Alan GORDILLO MD Number of Addenda: 0 Note Initiated On: 05/26/2020 1:40 PM Estimated Blood Loss: Estimated blood loss: none.
[2020-05-26 14:47] VITALS: BP 139/84
== END 2020-05-26 15:20 | disposition home or self-care (01) ==
LOC: M OPP 12:06
PROVIDERS: ATTEND Internal Medicine Gastroenterology
DX: Z12.11 Encounter for screening for malignant neoplasm of colon (principal); K31.7 Polyp of stomach and duodenum; K31.89 Other diseases of stomach and duodenum; R12 Heartburn; M35.00 Sjogren syndrome, unspecified; M32.9 Systemic lupus erythematosus, unspecified; R00.0 Tachycardia, unspecified; Z79.01 Long term (current) use of anticoagulants; Z79.899 Other long term (current) drug therapy; Z88.1 Allergy status to other antibiotic agents; Z88.5 Allergy status to narcotic agent; Z88.8 Allergy status to other drugs, medicaments and biological substances; Z86.19 Personal history of other infectious and parasitic diseases; Z86.39 Personal history of other endocrine, nutritional and metabolic disease
CPT/HCPCS: 43239; 88305; G0121; J3010

== ENCOUNTER → 2020-05-29 | Outpatient (CLI) | payer MEDICARE, MEDICAID ==
[~2020-05-29] MED LIST changes: -NS 1,000 ML IV ONE
[2020-05-29 10:54] LABS: INR 2.07; PROTHROMBIN TIME 23.8 SECONDS (12.5-14.3)
== END ==
LOC: M LAB 09:49
PROVIDERS: ATTEND Internal Medicine Hematology & Oncology
DX: Z51.81 Encounter for therapeutic drug level monitoring (principal); Z79.01 Long term (current) use of anticoagulants

== ENCOUNTER → 2020-06-11 | Outpatient (CLI) | payer MEDICARE, MEDICAID ==
[2020-06-11 14:03] LABS: INR 2.45; PROTHROMBIN TIME 27.1 SECONDS (12.5-14.3)
== END ==
LOC: M LAB 13:13
PROVIDERS: ATTEND Internal Medicine Hematology & Oncology
DX: Z79.01 Long term (current) use of anticoagulants (principal)

== ENCOUNTER → 2020-06-23 | Outpatient (CLI) | payer MEDICARE, MEDICAID ==
[2020-06-23 11:42] LABS: INR 2.26; PROTHROMBIN TIME 25.5 SECONDS (12.5-14.3)
== END ==
LOC: M LAB 10:41
PROVIDERS: ATTEND Internal Medicine Hematology & Oncology
DX: I26.99 Other pulmonary embolism without acute cor pulmonale (principal); M32.9 Systemic lupus erythematosus, unspecified; Z79.01 Long term (current) use of anticoagulants

== ENCOUNTER → 2020-07-07 | Outpatient (CLI) | payer MEDICARE, MEDICAID ==
[2020-07-07 14:14] LABS: INR 2.02; PROTHROMBIN TIME 23.3 SECONDS (12.5-14.3)
== END ==
LOC: M LAB 13:43
PROVIDERS: ATTEND Internal Medicine Hematology & Oncology
DX: I26.99 Other pulmonary embolism without acute cor pulmonale (principal); M32.9 Systemic lupus erythematosus, unspecified; Z79.01 Long term (current) use of anticoagulants

== ENCOUNTER → 2020-07-08 | Outpatient (CLI) | payer MEDICARE, MEDICAID | LOC: M LABSMTC 10:30 | PROVIDERS: ATTEND Pediatrics | DX: Z11.59 Encounter for screening for other viral diseases (principal) ==

== ENCOUNTER → 2020-07-16 | Outpatient (CLI) | payer MEDICARE, MEDICAID ==
[2020-07-16 13:23] LABS: INR 1.78; PROTHROMBIN TIME 21.1 SECONDS (12.5-14.3)
== END ==
LOC: M LAB 11:49
PROVIDERS: ATTEND Internal Medicine Hematology & Oncology
DX: I26.99 Other pulmonary embolism without acute cor pulmonale (principal); M32.9 Systemic lupus erythematosus, unspecified; Z79.01 Long term (current) use of anticoagulants

== ENCOUNTER → 2020-07-21 | Outpatient (CLI) | payer MEDICARE, MEDICAID ==
[2020-07-21 11:20] LABS: INR 2.26; PROTHROMBIN TIME 25.5 SECONDS (12.5-14.3)
== END ==
LOC: M LAB 10:16
PROVIDERS: ATTEND Internal Medicine Hematology & Oncology
DX: I26.99 Other pulmonary embolism without acute cor pulmonale (principal); M32.9 Systemic lupus erythematosus, unspecified; Z79.01 Long term (current) use of anticoagulants

== ENCOUNTER → 2020-08-04 | Outpatient (CLI) | payer MEDICARE, MEDICAID ==
[2020-08-04 13:32] LABS: INR 2.24; PROTHROMBIN TIME 25.3 SECONDS (12.5-14.3)
== END ==
LOC: M LAB 12:36
PROVIDERS: ATTEND Internal Medicine Hematology & Oncology
DX: I26.99 Other pulmonary embolism without acute cor pulmonale (principal); M32.9 Systemic lupus erythematosus, unspecified; Z79.01 Long term (current) use of anticoagulants

== ENCOUNTER 2020-08-19 10:38 | Emergency (ER) | payer MEDICARE, MEDICAID ==
[~2020-08-19] VITALS: Ht 172.7 cm; Wt 152.2 kg
[~2020-08-19 10:38] MED LIST changes: +METH-1164; -METH1TAB40
--- OUTSIDE RECORDS SUMMARY | 2020-08-19 10:51 | CCD | Continuity of Care Document ---
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 Role Phone Kristopher ALARCON, Debbie Unavailable Unavailable Allergies, Adverse Reactions, Alerts Substance Reaction Status Criticality mycophenolate mofetil Active No Information imipramine Active No Information topiramate Active No Information methotrexate Active No Information TRAMADOL HCL Active No Information DOXYCYCLINE HYCLATE Active No Informati on ibuprofen Active No Information erythromycin base Active No Information Medications Medication Instructions Dosage Effective Dates (start - stop) Sta tus Comments Plaquenil 200 mg tablet take 1 tablet by oral route 2 times ever y day 200 MG - Active prednisone 5 mg tablet take 1 tablet by oral route every day 5 MG - Active Benlysta 400 mg intravenous solution infuse (10MG/KG) by intravenous route every 4 weeks over 10 MG/KG - Active citalopram 20 mg tablet take 1 tablet by oral route every day 20 MG - Active Ziac 5 mg-6.25 mg tablet take 1 tablet by oral route every day 1.0 0 tablet - Active potassium 99 mg tablet - Active levothyroxine 100 mcg tablet take 1 tablet by oral route every day 100 MCG - Active pantoprazole 40 mg tablet,delayed release take 1 table t by oral route every day 40 MG - Active aspirin 81 mg tablet,delayed release take 1 tablet by oral r oute every day 81 MG - Active Zyrtec 10 mg capsule - Active Vitamin D3 2,000 unit tablet take 1 tablet by oral route every day 1 tablet - Active FISH OIL (unknown strength) Not Available - Activ e Problems Condition Type Effective Dates (start - stop) Clinical S tatus Comments Systemic lupus erythematosus, unspecified Diagnosis in terpretation (observable entity) Systemic lupus erythematosus, unspecified Diagnosis in terpretation (observable entity) Systemic lupus erythematosus, unspecified Diagnosis in terpretation (observable entity) Encounter for therapeutic drug level monitoring Diagno sis interpretation (observable entity) Systemic lupus erythematosus, unspecified Diagnosis in terpretation (observable entity) Systemic lupus erythematosus, unspecified Diagnosis in terpretation (observable entity) Migraine Problem (finding) - Active Hypothyroidism Problem (finding) - Active Depressive disorder Problem (finding) - Active Hypertensive disorder Problem (finding) - Active Uric acid renal calculus Problem (finding) - Active Kidney disease Problem (finding) - Active Procedures Procedure Date No Information Results Test Name Date and Time Measure Units Reference Range Abnormal Flag St atus Comments No Information Advance Directives Directive Yes / No Effective Date File Name No Information Encounters Encounter Description Practice Location Reason(s) For Visit Diagnose s Date Provider Providers Copied on Encounter [facility], [address] [place] [address], [id number], tel:[phone] [facility] No Information Kristopher Lewis. [address] [place] [address], [id number], [place]. tel:[phone] [facility], [address] [place] [address], [id number], [place] tel:[phone] [facility] Systemic lupus erythematosus, unspecified Dru Carson. [address], [id number], [place]. tel:[phone] Referring Provider: Juve HERNNADEZ, [address], [address]. tel:[phone] [facility], [address] [place] [address], [id number], [place] tel:[phone] [facility] No Information Dru Carson. [address] [place], [id number], [place]. tel:[phone] [facility], [address] [place] [address], [id number], [place] tel:[phone] [facility] Systemic lupus erythematosus, unspecified Casimiro Henry. [address] [place], [place], [id number], [place]. tel:[phone] Referring Provider: Juve HERNANDEZ, [address] [place] [address], [id number]. tel:[phone] [facility], [address] [place] [address], [id number], [place] tel:[phone] [facility] Systemic lupus erythematosus, unspecifiedEncounter for therapeutic drug level monitoring Dru Carson. [address], [place], [place], [id number], [place]. tel:[phone] Referring Provider: Juve HERNANDEZ, [address] [place] [address], [facility]. tel:[phone] [facility], [address] [place] [address], [id number], [place] tel:[phone] [facility] Systemic lupus erythematosus, unspecified Dru Carson. [address], [place], [place], [id number], [place]. tel:[phone] Referring Provider: Juve HERNANDEZ, [address] [place] [address], [id number]. tel:[phone] [facility], [address] [place] [address], [id number], [place] tel:[phone] [facility] Systemic lupus erythematosus, unspecified Dru Carson. [address], [place], [place], [id number], [place]. tel:[phone] Referring Provider: Juve HERNANDEZ, [address] [place] [address], [id number]. tel:[phone] Family History Family Member Type Diagnosis Age At Onset Mother Problem (finding) Lupus Mother Problem (finding) Fibromyalgia Sister Problem (finding) Crohn's disease Mother Problem (finding) Osteoporosis Immunizations Vaccine Date Status Comments Influenza, split virus, injectable, 3 years and older Fluvirin administered Source: New Immunization Rec ord Influenza, split virus, injectable, 3 years and older Fluvirin administered Note: Invalid documented adm in date was NULL/NULL/2013. ; Source: Other Provider Payers Payer name Insurance type Covered constitution party ID Authorization(s ) Blue Shield Medicare 16 [id number] Medicaid [place] [id number] [employer] Medicare 16 [id number] Medicaid [place] [id number] Social History Type Description Quantity Date Captured Comments Sex Female Smoking Status No Information Vital Signs Date / Time: Height Weight BMI Pulse Rate Blood Pressure Temperatu re Respiratory Rate Body Surface Area Head Circumference BMI percentile Pulse Ox In haled Ox No Information Chief Complaint And Reason For Visit No Information Reason For Referral Reason For Referral No Information Plan Of Treatment Date Type Action Status No Information History Of Present Illness Encounter Date Complaint History Of Present I llness No Information Functional Status Date Functional Assessment No Information Medications Administered Medication Instructions Dosage Effective Dates (start - stop) Sta tus Comments No Information Instructions Date Instruction Additional Informati on No Information Physical Examination Exam Findings Details No Information
--- OUTSIDE RECORDS SUMMARY | 2020-08-19 10:51 | CCD | Continuity of Care Document ---
Author Author Rosetta BREWSTER PA-C Organization Unknown Address [address] [place] [address] Phone [phone] Care Team Providers Care Size Painter Name Role Phone Keke Sandoval AUTM [phone] Problems Description No Information Available Social History Type Date Description Comments Sex Unknown Tobacco Use Start: Unknown Denies Smoking Allergies, Adverse Reactions, Alerts Description No Information Available Medications Active Medications SIG Qnty Indications Ordering Provide r Date Euflexxa 20mg/2ML Soln Prefill Syr sachin lt knee #1 05/05/2020 bms/kh, left knee #2 05/16/2020 bms/bc, lt knee #3 bms/hd 05/28/20 Darrick Jeronimo MD 05/05/2020 Immunizations Description No Information Available Vital Signs Date Vital Result Comment 08/07/2020 9:01am Body Temperature 96.9 F Height 68 inches 5'8" Weight 335.00 lb BMI (Body Mass Index) 50.9 kg/m2 08/04/2020 1:52pm Body Temperature 96.8 F Results Description No Information Available Procedures Date Code Description Status 07/21/2020 32601 X-Ray Knee Complete W/Obliques & Tunnel And/Or Standing Views Completed 07/21/2020 Inject/Drain Joint/Bursa Major C ompleted 05/28/2020 Inject/Drain Joint/Bursa Major C ompleted 05/16/2020 Inject/Drain Joint/Bursa Major C ompleted 05/05/2020 Inject/Drain Joint/Bursa Major C ompleted 04/03/2020 78652 Apply Cast Short Leg Completed 03/26/2020 81445 X-Ray Knee Complete W/Obliques & Tunnel And/Or Standing Views Completed 03/26/2020 58074 Inject/Drain Joint/Bursa Major C ompleted 03/04/2020 46730 X-Ray Foot Complete Completed 03/04/2020 22378 X-Ray Ankle Complete Completed Medical Devices Description No Information Available Encounters Type Date Location Provider Dx Diagnosis Office Visit 08/07/2020 9:00a [facility] M17.12 Unilateral primary osteoarthritis, left knee S80.02xD Contusion of left knee, subs equent encounter M25.462 Effusion, left knee M94.262 Chondromalacia, left knee Office Visit 08/07/2020 2:00p Savanah Garrett MD M21. 42 Flat foot [pes planus] (acquired), left foot Office Visit 08/04/2020 1:15p Savanah Garrett MD M21. 42 Flat foot [pes planus] (acquired), left foot M21.41 Flat foot [pes planus] (acqu ired), right foot M79.672 Pain in left foot Office Visit 07/21/2020 9:00a [place] Saray Brewster PA-C S80.02x A Contusion of left knee, initial encounter M17.12 Unilateral primary osteoarth ritis, left knee Office Visit 07/02/2020 1:00p [facility] P.[facility] M17.12 Unilateral primary osteoarthritis, left knee R22.42 Localized swelling, mass and lump, left lower limb Office Visit 06/12/2020 8:00a Savanah Garrett MD M21. 42 Flat foot [pes planus] (acquired), left foot M21.41 Flat foot [pes planus] (acqu ired), right foot M79.672 Pain in left foot Office Visit 05/28/2020 2:00p Savanah Kelly PA-C M1 7.12 Unilateral primary osteoarthritis, left knee Office Visit 05/16/2020 9:30a Savanah Kelly PA-C M1 7.12 Unilateral primary osteoarthritis, left knee Office Visit 05/05/2020 1:45p Savanah Kelly PA-C M1 7.12 Unilateral primary osteoarthritis, left knee Office Visit 04/29/2020 2:00p Savanah Garrett MD S86. 111D Strain musc/tend post grp at low leg level, right leg, subs M21.41 Flat foot [pes planus] (acqu ired), right foot Office Visit 04/04/2020 1:15p Savanah Paredes PA-C S8 6.111D Strain musc/tend post grp at low leg level, right leg, subs Office Visit 04/03/2020 1:30p [place] MD S86. 111A Strain musc/tend post grp at low leg level, right leg, init M21.41 Flat foot [pes planus] (acqu ired), right foot Office Visit 03/26/2020 9:00a Savanah Kelly PA-C M1 7.12 Unilateral primary osteoarthritis, left knee Office Visit 03/20/2020 2:30p Savanah Garrett MD M21. 41 Flat foot [pes planus] (acquired), right foot M19.071 Primary osteoarthritis, righ t ankle and foot M25.571 Pain in right ankle and join ts of right foot Office Visit 03/04/2020 3:30p Savanah Garrett MD M19. 072 Primary osteoarthritis, left ankle and foot M19.071 Primary osteoarthritis, righ t ankle and foot M21.42 Flat foot [pes planus] (acqu ired), left foot M21.41 Flat foot [pes planus] (acqu ired), right foot Assessments Date Code Description Provider 08/07/2020 M21.42 Flat foot [pes planus] (acquired ), left foot Gabbi Garrett MD 08/07/2020 M17.12 Unilateral primary osteoarthriti s, left knee Juve Shell, P.A. 08/07/2020 S80.02xD Contusion of left knee, subseque nt encounter Juve Shell, P.A. 08/07/2020 M25.462 Effusion, left knee Juve wolfe, P.A. 08/07/2020 M94.262 Chondromalacia, left knee Aminata Shell, P.A. 08/04/2020 M21.42 Flat foot [pes planus] (acquired ), left foot Gabbi Garrett MD 08/04/2020 M21.41 Flat foot [pes planus] (acquired ), right foot Gabbi Garrett MD 08/04/2020 M79.672 Pain in left foot Gabbi duenas MD 07/21/2020 S80.02xA Contusion of left knee, initial encounter Saray Brewster PA-C 07/21/2020 M17.12 Unilateral primary osteoarthriti s, left knee Saray Brewster PA-C 07/02/2020 M17.12 Unilateral primary osteoarthriti s, left knee Juve Shell, P.A. 07/02/2020 R22.42 Localized swelling, mass and lum p, left lower limb Juve Shell, P.A. 06/12/2020 M21.42 Flat foot [pes planus] (acquired ), left foot Gabbi Garrett MD 06/12/2020 M21.41 Flat foot [pes planus] (acquired ), right foot Gabbi Garrett MD 06/12/2020 M79.672 Pain in left foot Gabbi duenas MD 05/28/2020 M17.12 Unilateral primary osteoarthriti s, left knee Jeet Kelly PA-C 05/16/2020 M17.12 Unilateral primary osteoarthriti s, left knee Jeet Kelly PA-C 05/05/2020 M17.12 Unilateral primary osteoarthriti s, left knee Jeet Kelly PA-C 04/29/2020 S86.111D Strain of other musc le(s) and tendon(s) of posterior muscle group at lower leg level, right leg, subsequent encounter Gabbi Garrett MD 04/29/2020 M21.41 Flat foot [pes planus] (acquired ), right foot Gabbi Garrett MD 04/04/2020 S86.111D Strain of other musc le(s) and tendon(s) of posterior muscle group at lower leg level, right leg, subsequent encounter Ada Paredes PA-C 04/03/2020 S86.111A Strain of other musc le(s) and tendon(s) of posterior muscle group at lower leg level, right leg, initial encounter Gabbi Garrett MD 04/03/2020 S86.111A Strain of other musc le(s) and tendon(s) of posterior muscle group at lower leg level, right leg, initial encounter Gabbi Garrett MD 04/03/2020 M21.41 Flat foot [pes planus] (acquired ), right foot Gabbi Garrett MD 03/26/2020 M17.12 Unilateral primary osteoarthriti s, left knee Jeet Kelly PA-C 03/26/2020 M17.12 Unilateral primary osteoarthriti s, left knee Jeet Kelly PA-C 03/20/2020 M21.41 Flat foot [pes planus] (acquired ), right foot Gabbi Garrett MD 03/20/2020 M19.071 Primary osteoarthritis, right an kle and foot Gabbi Garrett MD 03/20/2020 M25.571 Pain in right ankle and joints o f right foot Gabbi Garrett MD 03/04/2020 M21.41 Flat foot [pes planus] (acquired ), right foot Gabbi Garrett MD 03/04/2020 M19.072 Primary osteoarthritis, left ank le and foot Gabbi Garrett MD 03/04/2020 M19.071 Primary osteoarthritis, right an kle and foot Gabbi Garrett MD 03/04/2020 M21.42 Flat foot [pes planus] (acquired ), left foot Gabbi Garrett MD 03/04/2020 M21.41 Flat foot [pes planus] (acquired ), right foot Gabbi Garrett MD Plan of Treatment Future Appointment(s):* 08/21/2020 2:30 pm - Jeet Kelly PA-C at [place] Functional Status Description No Information Available Mental Status Description No Information Available Referrals Refer to Dr Reason for Referral Status Appt Date Gabbi Garrett MD REF NO AUTH REQUIRED FOR REF TO DR RAMOS TO [facility] NT Created [address] [place] [address] [phone] Gabbi Garrett MD EUFLEXXA PER WEB NO AUTH REQUIRED 20% COI N. LS Created [address] [place] [address] [phone] Jeet Kelly, PAPeytonC DME NO AUTH REQUIRED ECONOMY HINGED KNEE (L1812) TO [facility]A NT Created [address] [place] [address] [phone] Gabbi Garrett MD DME [employer] PER WEB NO AUTH REQUIRED. 20% COIN. LS Created [address] [place] [address] [phone] Gabbi Garrett MD DME PER B/S WEB NO AUTH REQU IRED FOR ANKLE LACE UP(L1902) AND COVERED AT 80% UNTIL THEY MEET THERE OUT OF POCKET OF $5000 TO [facility] Created [address] [place] [address] [phone]
--- OUTSIDE RECORDS SUMMARY | 2020-08-19 10:51 | CCD | Continuity of Care Document ---
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 Name Role Phone Lori Kekegloria HERNANDEZ AUTM [phone] Problems Description No Information Available Social [...] Available Vital Signs Date Vital Result Comment 08/04/2020 1:52pm Body Temperature 96.8 F 07/21/2020 9:15am Body Temperature 96.8 F Results Description No Information Available Procedures Date Code Description Status 07/21/2020 41165 X-Ray Knee Complete W/Obliques & Tunnel And/Or Standing Views Completed 07/21/202037706 Inject/Drain Joint/Bursa Major C ompleted 05/28/2020 Inject/Drain Joint/Bursa Major C ompleted 05/16/2020 Inject/Drain Joint/Bursa Major C ompleted 05/05/2020 Inject/Drain Joint/Bursa Major C ompleted 04/03/2020 19912 Apply Cast Short Leg Completed 03/26/2020 62665 X-Ray Knee Complete W/Obliques & Tunnel And/Or Standing Views Completed 03/26/202097577 Inject/Drain Joint/Bursa Major C ompleted 03/04/2020 81709 X-Ray Foot Complete Completed 03/04/2020 74741 X-Ray Ankle Complete Completed Medical Devices Description No Information Available Encounters Type Date Location Provider Dx Diagnosis Office Visit 07/21/2020 9:00a Savanah Bishop PA-C M17.12 Unilateral primary osteoarthritis, left knee S80.02xA Contusion of left knee, init ial encounter Office Visit 07/02/2020 1:00p [place] M17.12 Unilateral primary osteoarthritis, left knee R22.42 Localized swelling, mass and lump, left lower limb Office Visit 06/12/2020 8:00a Savanah Acosta MD M21. 42 Flat foot [pes planus] [...] left knee Office Visit 04/29/2020 2:00p Savanah Acosta MD S86. 111D Strain musc/tend post grp at low leg level, right leg, subs M21.41 Flat foot [pes planus] (acqu ired), right foot Office Visit 04/04/2020 1:15p Savanah Paredes PA-C S8 6.111D Strain musc/tend post grp at low leg level, right leg, subs Office Visit 04/03/2020 1:30p Savanah Acosta MD S86. 111A Strain musc/tend post grp at low leg level, right leg, init M21.41 Flat foot [pes planus] (acqu ired), right foot Office Visit 03/26/2020 9:00a Savanah Kelly PA-C M1 7.12 Unilateral primary osteoarthritis, left knee Office Visit 03/20/2020 2:30p Savanah Acosta MD M21. 41 Flat foot [pes planus] (acquired), right foot M19.071 Primary osteoarthritis, righ t ankle and foot M25.571 Pain in right ankle and join ts of right foot Office Visit 03/04/2020 3:30p Savanah Acosta MD M19. 072 Primary osteoarthritis, left ankle and foot M19.071 Primary osteoarthritis, righ t ankle and foot M21.42 Flat foot [pes planus] (acqu ired), left foot M21.41 Flat foot [pes planus] (acqu ired), right foot Assessments Date Code Description Provider 08/04/2020 M21.42 Flat foot [pes planus] (acquired ), left foot Gabbi Acosta MD 08/04/2020 M21.41 Flat foot [pes planus] (acquired ), right foot Gabbi Acosta MD 08/04/2020 M79.672 Pain in left foot Gabbi duenas MD 07/21/2020 M17.12 Unilateral primary osteoarthriti s, left knee Saray Bishop PA-C 07/21/2020 S80.02xA Contusion of left knee, initial encounter Saray Bishop PA-C 07/02/2020 M17.12 Unilateral primary osteoarthriti s, left knee Juve Shell, P.A. 07/02/2020 R22.42 Localized swelling, mass and lum p, left lower limb Juve Shell, P.A. 06/12/2020 M21.42 Flat foot [pes planus] (acquired ), left foot Gabbi Acosta MD 06/12/2020 M21.41 Flat foot [pes planus] (acquired ), right foot Gabbi Acosta MD 06/12/2020 M79.672 Pain in left foot [...] leg level, right leg, subsequent encounter Gabbi Acosta MD 04/29/2020 M21.41 Flat foot [pes planus] (acquired ), right foot Gabbi Acosta MD 04/04/2020 S86.111D Strain of other musc le(s) and tendon(s) of posterior muscle group at lower leg level, right leg, subsequent encounter Ada Paredes PA-C 04/03/2020 S86.111A Strain of other musc le(s) and tendon(s) of posterior muscle group at lower leg level, right leg, initial encounter Gabbi Acosta MD 04/03/2020 S86.111A Strain of other musc le(s) and tendon(s) of posterior muscle group at lower leg level, right leg, initial encounter Gabbi Acosta MD 04/03/2020 M21.41 Flat foot [pes planus] (acquired ), right foot Gabbi Acosta MD 03/26/2020 M17.12 Unilateral primary osteoarthriti s, left knee Jeet Kelly PA-C 03/26/2020 M17.12 Unilateral primary osteoarthriti s, left knee Jeet Kelly PA-C 03/20/2020 M21.41 Flat foot [pes planus] (acquired ), right foot Gabbi Acosta MD 03/20/2020 M19.071 Primary osteoarthritis, right an kle and foot Gabbi Acosta MD 03/20/2020 M25.571 Pain in right ankle and joints o f right foot Gabbi Acosta MD 03/04/2020 M21.41 Flat foot [pes planus] (acquired ), right foot Gabbi Acosta MD 03/04/2020 M19.072 Primary osteoarthritis, left ank le and foot Gabbi Acosta MD 03/04/2020 M19.071 Primary osteoarthritis, right an kle and foot Gabbi Acosta MD 03/04/2020 M21.42 Flat foot [pes planus] (acquired ), left foot Gabbi Acosta MD 03/04/2020 M21.41 Flat foot [pes planus] (acquired ), right foot Gabbi Acosta MD Plan of Treatment Future Appointment(s):* 08/21/2020 2:30 pm - Jeet Kelly PA-C at [place] 08/04/2020 - Gabbi Acosta MD* M21.42 Flat foot [pes planus] (acquired), left foot* Follow up:* mri results of lt foot on ( telephone visit) * M21.41 Flat foot [pes planus] (acquired), right foot* New Orders:* Referral, Ordered: 08/04/20 * M79.672 Pain in left foot Functional Status Description No Information Available Mental Status Description No Information Available Referrals Refer to Dr Reason for Referral Status Appt Date Gabbi Acosta MD EUFLEXXA PER WEB NO AUTH REQUIRED 20% COI N. LS Created [address] [place] [address] [phone] Jeet Kelly PA-C DME NO AUTH REQUIRED ECONOMY HINGED KNEE (L1812) TO [facility]A NT Created [address] [place] [address] [phone] Gabbi Acosta MD DME [employer] PER WEB NO AUTH REQUIRED. 20% COIN. LS Created [address] [place] [address] [phone] Gabbi Acosta MD DME PER B/S WEB NO AUTH REQU IRED FOR ANKLE LACE UP(L1902) AND COVERED AT 80% UNTIL THEY MEET THERE OUT OF POCKET OF $5000 TO [facility] NT Created [address] [place] [address] [phone]
--- OUTSIDE RECORDS SUMMARY | 2020-08-19 10:51 | CCD | Continuity of Care Document ---
Author Author Rosetta SHELL P.A. Organization Unknown Address [address] [place] [address], [facility] e [address] [place] [address] Phone [phone] Care Team Providers Care Molding Supervisor Name Role Phone Keke Sandoval AUTM [phone] Problems Description No Information Available Social History Type Date Description Comments Sex Unknown Tobacco Use Start: Unknown Denies Smoking Allergies, Adverse Reactions, Alerts Description No Information Available Medications Active Medications SIG Qnty Indications Ordering Provide r Date Euflexxa 20mg/2ML Soln Prefill Syr sachni lt knee #1 05/05/2020 bms/kh, left knee [...] Available Procedures Date Code Description Status 07/21/2020 97205 X-Ray Knee Complete W/Obliques & Tunnel And/Or Standing Views Completed 07/21/2020 Inject/Drain Joint/Bursa Major C ompleted 05/28/2020 Inject/Drain Joint/Bursa Major C ompleted 05/16/2020 Inject/Drain Joint/Bursa Major C ompleted 05/05/202046573 Inject/Drain Joint/Bursa Major C ompleted 04/03/2020 00814 Apply Cast Short Leg Completed 03/26/2020 92288 X-Ray Knee Complete W/Obliques & Tunnel And/Or Standing Views Completed 03/26/2020 61234 Inject/Drain Joint/Bursa Major C ompleted 03/04/2020 62715 X-Ray Foot Complete Completed 03/04/2020 68501 X-Ray Ankle Complete Completed Medical Devices Description No Information Available Encounters Type Date Location Provider Dx Diagnosis Office Visit 08/07/2020 9:00a Savanah Shell, PStefA. M17.12 Unilateral primary osteoarthritis, left knee S80.02xD Contusion of left knee, subs equent encounter M25.462 Effusion, left knee M94.262 Chondromalacia, left knee Office Visit 08/04/2020 1:15p Savanah Garrett MD M21. 42 Flat foot [pes planus] (acquired), left foot M21.41 Flat foot [pes planus] (acqu ired), right foot M79.672 Pain in left foot Office Visit 07/21/2020 9:00a [place] PA-C M17.12 Unilateral primary osteoarthritis, left knee S80.02xA Contusion of left knee, init ial encounter Office Visit 07/02/2020 1:00p Savanah Shell, PStefA. M17.12 Unilateral primary osteoarthritis, left knee R22.42 [...] osteoarthritis, left knee Office Visit 04/29/2020 2:00p [place] MD S86. 111D Strain musc/tend post grp at low leg level, right leg, subs M21.41 Flat foot [pes planus] (acqu ired), right foot Office Visit 04/04/2020 1:15p Savanah Paredes PA-C S8 6.111D Strain musc/tend post grp at low leg level, right leg, subs Office Visit 04/03/2020 1:30p [place] Garrett MD S86. 111A Strain musc/tend post [...] foot Assessments Date Code Description Provider 08/07/2020 M17.12 Unilateral primary osteoarthriti s, left knee Juve Shell, P.A. 08/07/2020 S80.02xD Contusion of left knee, subseque nt encounter Juve Shell, P.A. 08/07/2020 M25.462 Effusion, left knee Juve wolfe, P.A. 08/07/2020 M94.262 Chondromalacia, left knee Michae norman Shell, P.A. 08/04/2020 M21.42 Flat foot [pes [...] 2:30 pm - Jeet Kelly PA-C at [place] 08/07/2020 - Juve Shell, Rhonda.* M17.12 Unilateral primary osteoarthritis, left knee * S80.02xD Contusion of left knee, subsequent encounter* New Xrays:* MRI Left Knee, Ordered: 08/07/20 * Follow up:* after left knee mri for results with [facility] * M25.462 Effusion, left knee * M94.262 Chondromalacia, left knee Functional Status Description No Information Available Mental Status Description No Information Available Referrals Refer to Dr Reason for Referral Status Appt Date Gabbi Garrett MD REF NO AUTH REQUIRED FOR REF TO DR RAMOS TO [facility] NT Created [address] [place] [id number] [phone] Gabbi Garrett MD EUFLEXXA PER WEB NO AUTH REQUIRED 20% COI N. LS Created [address] [place] [address] [phone] Jeet Kelly, PAPeytonC DME NO AUTH REQUIRED ECONOMY HINGED KNEE (L1812) TO [facility] Created [address] [place] [address] [phone] Gabbi Garrett MD DME [employer] PER WEB NO AUTH REQUIRED. 20% COIN. Created [address] [place] [address] [phone] Gabbi Garrett MD DME PER B/S WEB NO AUTH REQU IRED FOR ANKLE LACE UP(L1902) AND COVERED AT 80% UNTIL THEY MEET THERE OUT OF POCKET OF $5000 TO ROSA Created [address] [place] [address] [phone]
--- OUTSIDE RECORDS SUMMARY | 2020-08-19 10:51 | CCD | Continuity of Care Document ---
Author Author Rosetta ACOSTA MD Organization Unknown Address [address] [place] [address] Phone [phone] Care Team Providers Care Spiral Spring Winder Name Role Phone Lori Kekegloria HERNANDEZ AUTM [phone] Problems Description No Information Available Social [...] Available Procedures Date Code Description Status 07/21/2020 28434 X-Ray Knee Complete W/Obliques & Tunnel And/Or Standing Views Completed 07/21/2020 Inject/Drain Joint/Bursa Major C ompleted 05/28/2020 Inject/Drain Joint/Bursa Major C ompleted 05/16/2020 Inject/Drain Joint/Bursa Major C ompleted 05/05/2020 Inject/Drain Joint/Bursa Major C ompleted 04/03/2020 07359 Apply Cast Short Leg Completed 03/26/2020 50186 X-Ray Knee Complete W/Obliques & Tunnel And/Or Standing Views Completed 03/26/202099120 Inject/Drain Joint/Bursa Major C ompleted 03/04/2020 06052 X-Ray Foot Complete Completed 03/04/2020 38310 X-Ray Ankle Complete Completed Medical Devices Description No Information Available Encounters Type Date Location Provider Dx Diagnosis Office Visit 08/07/2020 9:00a Savanah Shell, P.A. M17.12 Unilateral primary osteoarthritis, left knee S80.02xD Contusion of left knee, subs equent encounter M25.462 Effusion, left knee M94.262 Chondromalacia, left knee Office Visit 08/07/2020 2:00p Savanah Acosta MD M21. 42 Flat foot [pes planus] (acquired), left foot Office Visit 08/04/2020 1:15p Savanah Acosta MD M21. 42 Flat foot [pes planus] (acquired), left foot M21.41 Flat foot [pes planus] (acqu ired), right foot M79.672 Pain in left foot Office Visit 07/21/2020 9:00a Savanah Bishop PA-C M17.12 Unilateral primary osteoarthritis, left knee S80.02xA Contusion of left knee, init ial encounter Office Visit 07/02/2020 1:00p Savanah Shell, P.A. M17.12 Unilateral primary osteoarthritis, left [...] right leg, subs Office Visit 04/03/2020 1:30p [place] Ac[place] MD S86. 111A Strain musc/tend post [...] (acquired ), left foot Gabbi Acosta MD 08/07/2020 M17.12 Unilateral primary osteoarthriti s, [...] 2:30 pm - Jeet Kelly PA-C at [place] 08/07/2020 - Juve Shell, PStefA.* M17.12 Unilateral primary osteoarthritis, left knee * S80.02xD Contusion of left knee, subsequent encounter* New Xrays:* MRI Left Knee, Ordered: 08/07/20 * Follow up:* after left knee mri for results with [facility] * M25.462 Effusion, left knee * M94.262 Chondromalacia, left knee Functional Status Description No Information Available Mental Status Description No Information Available Referrals Refer to Dr Reason for Referral Status Appt Date Gabbi Acosta MD REF NO AUTH REQUIRED FOR REF TO DR RAMOS TO [facility] NT Created [address] [place] [address] [phone] Gabbi Acosta MD EUFLEXXA PER WEB NO AUTH REQUIRED 20% COI N. Created [address] [place] [address] [phone] Jeet Kelly, PA-C DME NO AUTH REQUIRED ECONOMY HINGED KNEE (L1812) TO [facility] Created [address] [place] [address] [phone] Gabbi Acosta MD DME [employer] PER WEB NO AUTH REQUIRED. 20% COIN. Created [facility] [place] [address] [phone] Gabbi Acosta MD DME PER B/S WEB NO AUTH REQU IRED FOR ANKLE LACE UP(L1902) AND COVERED AT 80% UNTIL THEY MEET THERE OUT OF POCKET OF $5000 TO [facility] Created [address] [place] [address] [phone]
--- OUTSIDE RECORDS SUMMARY | 2020-08-19 10:52 | CCD | Continuity of Care Document ---
Author Author Rosetta RAMÍREZ M.D. Organization Unknown Address [address] [place] [address] Phone [phone] Care Team Providers Care Eyelet Row Marker Name Role Phone Juve Baron RPA-Tasha AUTM [phone] Problems Active Problems Provider Date Headache Tina Ramírez M.D. Onset: 08/24/2019 Paresthesia Tina Ramírez M.D. Onset: 08/24/2019 Social History Type Date Description Comments Sex Unknown Tobacco Use Start: Unknown Patient has never smoked Allergies, Adverse Reactions, Alerts Active Allergies Reaction Severity Comments Date Ultram 08/24/2019 Topamax 08/24/2019 Imipramine 08/24/2019 Erythromycin 08/24/2019 Doxycycline 08/24/2019 Methotrexate 08/24/2019 Medications Active Medications SIG Qnty Indications Ordering Provide r Date Zonisamide 25mg Capsules 3 tab by mouth nightly 90caps Tina Ramírez M.D. 12/31/2019 Methocarbamol 500mg Tablets 1 tab by mouth as needed 30tabs Tina Ramírez M.D. 11/01/2019 Xanax 0.5mg Tablets 1 tab 15 mins prior to the scan; may repeat 30 minutes later if still anxiuos 2tabs Tina Ramírez M.D. 10/22/2019 Zonisamide 50mg Capsules 1 by mouth twice a day 60caps Tina Ramírez M.D. 08/24/2019 Pamelor 50mg Capsules 1 po qh s 30caps Allegra Ramírez M.D. 09/24/2013 Immunizations Description No Information Available Vital Signs Date Vital Result Comment 08/24/2019 3:30pm Height 68 inches 5'8" Weight 309.00 lb BMI (Body Mass Index) 47.0 kg/m2 [place] Body Weight 140 lb Results Description No Information Available Procedures Date Code Description Status 04/15/2020 24485 Injection For Nerve Block, Other Peripheral Nerve Or Branch Completed 04/15/2020 85641 Injection For Nerve Block, Great er Occipital Nerve Completed 02/21/2020 06913 Injection For Nerve Block, Other Peripheral Nerve Or Branch Completed 02/21/2020 18020 Injection For Nerve Block, Great er Occipital Nerve Completed Medical Devices Description No Information Available Encounters Type Date Location Provider Dx Diagnosis Office Visit 07/03/2020 9:00a Main office - [place] Tina Ramírez M.D. M47.892 Other spondylosis, cervical region M51.36 Other intervertebral disc de generation, lumbar region G43.809 Other migraine, not intracta ble, without status migrainosus R20.2 Paresthesia of skin G45.9 Transient cerebral ischemic attack, unspecified Office Visit 03/31/2020 10:00a Main office - [place] Tina Ramírez M.D. M47.892 Other spondylosis, cervical region M47.897 Other spondylosis, lumbosacr al region G43.809 Other migraine, not intracta ble, without status migrainosus R20.2 Paresthesia of skin M54.81 Occipital neuralgia Office Visit 02/12/2020 1:45p Main office - [place] Tina Ramírez M.D. I72.9 Aneurysm of unspecified site M47.892 Other spondylosis, cervical region M51.36 Other intervertebral disc de generation, lumbar region R42 Dizziness and giddiness G43.809 Other migraine, not intracta ble, without status migrainosus R20.2 Paresthesia of skin G45.9 Transient cerebral ischemic attack, unspecified Assessments Date Code Description Provider 07/03/2020 M47.892 Other spondylosis, cervical julia on Tina DarrellRhianna fergusonDStef 07/03/2020 M51.36 Other intervertebral disc degene ration, lumbar region Tina Darrell, MStefDStef 07/03/2020 G43.809 Other migraine, not intractable, without status migrainosus Tina Darrell, M.DStef 07/03/2020 R20.2 Paresthesia of skin Tina Ramírez M.DStef 07/03/2020 G45.9 Transient cerebral ischemic tawana ck, unspecified Tina Darrell, M.D. 04/15/2020 M54.81 Occipital neuralgia Michelle Doe M.D. 03/31/2020 M47.892 Other spondylosis, cervical julia on Itna Darrell, M.D. 03/31/2020 M47.897 Other spondylosis, lumbosacral r egion Tina Darrell, M.D. 03/31/2020 G43.809 Other migraine, not intractable, without status migrainosus Tina Darrell, M.D. 03/31/2020 R20.2 Paresthesia of skin Tina Darrell , M.D. 03/31/2020 M54.81 Occipital neuralgia Tina Darrell , M.D. 02/21/2020 M54.81 Occipital neuralgia Michelle Doe M.D. 02/12/2020 I72.9 Aneurysm of unspecified site Sun dus Darrell, M.D. 02/12/2020 M47.892 Other spondylosis, cervical julia on Tina Darrell, M.D. 02/12/2020 M51.36 Other intervertebral disc degene ration, lumbar region Tina Darrell, M.D. 02/12/2020 R42 Dizziness and giddiness Tina L jan, M.D. 02/12/2020 G43.809 Other migraine, not intractable, without status migrainosus Tina Darrell, M.D. 02/12/2020 R20.2 Paresthesia of skin Tina Darrell , M.D. 02/12/2020 G45.9 Transient cerebral ischemic tawana ck, unspecified Tina Darrell, M.D. Plan of Treatment No Information Available Functional Status Description No Information Available Mental Status Description No Information Available Referrals Description No Information Available
--- OUTSIDE RECORDS SUMMARY | 2020-08-19 10:52 | CCD | Continuity of Care Document ---
Author Author Rosetta KERR M.D. Organization Unknown Address [address], [place] [address] Phone [phone] Care Team Providers Care Computer Consultant Name Role Phone TodJuve king Sabino AUTM [phone] Problems Active Problems Provider Date Mild persistent asthma Jonatan Kerr M.D. Onset: 03/02 Allergic rhinitis due to house dust mite Jonatan Kerr M.D. Onset: 01/08/2020 Note: 4++ reaction to dust mites on intr adermal test completed in 2019. Cough Jonatan Kerr M.D. Onset: 020 Essential hypertension Jonatan Kerr M.D. Onset: 04/2020 Gastroesophageal reflux disease Jonatan Kerr M.D. On set: 01/08/2020 Obstructive sleep apnea syndrome Jonatan Kerr M.D. O nset: 07/21/2020 Social History Type Date Description Comments Sex Unknown Tobacco Use Reviewed: 01/08/20 Patient has never smoked Smoking Status Reviewed: 07/21/20 Patient has never smoked Allergies, Adverse Reactions, Alerts Active Allergies Reaction Severity Comments Date Ultram tongue swelling 01/08/2020 Topamax abnormal lab values 01/08/20 20 Methotrexate headache 01/08/2020 Imipramine increased pulse rate 020 Erythromycin vomiting, rash 01/08/2020 Doxycycline vomiting, rash 01/08/2020 Medications Active Medications SIG Qnty Indications Ordering Provide r Date Symbicort 80-4.5mcg/Act Aerosol inhale 2 puffs by inhalation route 2 times per day in the morning and evening 20.7gm R05 Jonatan Kerr M.D. 01/08/2020 Albuterol Sulfate HFA 108(90Base) mcg/Act Aerosol 2 puffs every 4-6 hours as needed for co ugh, wheeze, SOB and 15 minutes prior to exercise 8.500gm J45.30 Jonatan Kerr M.D. Dexilant 60mg Capsules DR 1 tablet by mouth once daily 30 minutes prior to large meal Juve Baron, Warfarin Sodium 5mg Tablets Unknown Methocarbamol 500mg Tablets Take One Tablet By Mouth Every Day as Needed Unknown Prednisone 2.5mg Tablets Take 1 Tablet By Mouth Once A Day Unknown Vitamin D3 25mcg (1000 Ut) Tablets Take 1 Tablet By Mouth Every Day Unknown Levothyroxine Sodium 100mcg Tablets Joseph Bishop, DO Potassium Chloride ER 10Meq Tablet s ER Take 1 Tablet By Mouth Twice A Day Except Tuesday Take 1 Tablet Three Times A Day Unknown Azelastine HCL (Nasal) 0.15% Solut ion 2 sprays each nostril once a day every morning prn Unknown Diphenhydramine HCL 25mg Tablets take 1-2 tablets (25-50 mg) by oral route every 4-6 hours as needed for itching Unknown Flonase Allergy Relief 50mcg/Act Suspension 2 sprays each nostril every night Unknown Famotidine 40mg Tablets Take One Tablet By Mouth Every Evening Unknown Bisoprolol Fumarate/Hydrochlorothiazide 5-6.25mg Tablets Take One Tablet By Mouth Every Day Unkno wn Hydroxychloroquine Sulfate 200mg T ablets 1 by mouth twice a day Unknown History Medications Flonase Sensimist 27 .5mcg/[place] Suspension 2 sprays each nostril every night 1units J30.89 Jonatan Kerr M.D. 03/20/2020 - 07/21/2020 Immunizations Description No Information Available Vital Signs Date Vital Result Comment 07/21/2020 10:55am Weight 336.38 lb Height 68 inches 5'8" Heart Rate 73 /min Respiratory Rate 16 /min BP Systolic 113 mmHg BP Diastolic 74 mmHg BMI (Body Mass Index) 51.1 kg/m2 03/20/2020 2:36pm Weight 330.38 lb Height 68 inches 5'8" Heart Rate 77 /min Respiratory Rate 18 /min BP Systolic 115 mmHg BP Diastolic 78 mmHg BMI (Body Mass Index) 50.2 kg/m2 Results Description No Information Available Procedures Date Code Description Status 07/21/2020 12573 Bronchodilation Resp onsiveness Spirometry Pre/Post Bronchodil Adm Completed Medical Devices Description No Information Available Encounters Type Date Location Provider Dx Diagnosis Office Visit 07/21/2020 10:45a Main Office Jonatan Kerr M.D. J30.89 Other allergic rhinitis J45.30 Mild persistent asthma, unco mplicated R05 Cough K21.9 Gastro-esophageal reflux dis ease without esophagitis G47.33 Obstructive sleep apnea (latrell lt) (pediatric) Assessments Date Code Description Provider 07/21/2020 J30.89 Allergic rhinitis due to dust mi jairo. Jonatan Kerr M.D. 07/21/2020 J45.30 Mild persistent asthma, uncompli cated Jonatan Kerr M.D. 07/21/2020 R05 Cough Jonatan carmichael M.D. 07/21/2020 K21.9 Gastro-esophageal reflux disease without esophagitis Jonatan Kerr M.D. 07/21/2020 G47.33 Obstructive sleep apnea (adult) Jonatan Kerr M.D. Plan of Treatment Future Appointment(s):* 01/19/2021 10:45 am - Jonatan Kerr M.D. at Main Office 07/21/2020 - Jonatan Kerr M.D.* J30.89 Allergic rhinitis due to dust mites.* Recommendations:* Effective allergen avoidance measures were reviewed and recommended. Because of the reported nasal irritation, it was recommended for patient to add moisture (humidity) to the home in the range of 45-50%. She was also advised to apply topical saline rinse/gel to help moisten the nasal mucosa. May also consider nasal irrigations. Nasal irrigations should be done prior to applying nasal sprays. Also recommended to optimize nasal spray to Flonase Sensimist. She should use the nasal spray every evening on a consistent, daily basis to be effective. May use azelastine nasal sprays on days her rhinitis symptoms are worse. Should use oral antihistamine as needed for itching and sneezing. If her rhinitis symptoms persist despite compliance with the recommended treatment regimen as outlined or she would like to be less dependent on medications over time, allergen immunotherapy may be considered. The risks and benefits associated with allergen immunotherapy were reviewed and discussed with patient in office today. * J45.30 Mild persistent asthma, uncomplicated* Recommendations:* Should stay on Symbicort 80/4.5 mcg/act @ 2 inhalations twice daily. ICS should be used on a consistent, daily basis to be effective. May consider to go to 2 inhalations once daily in spring 2020 (for spring/summer months) depending on how she does this winter. Proper MDI technique reviewed and demonstrated with patient in office today. She should use albuterol as needed for cough, wheeze, SOB and for activity prophylaxis. The risks and benefits associated with the use of these medications were reviewed and discussed. * R05 Cough* Recommendations:* Should follow-up with PCP regarding her GERD. Reportedly well-controlled on current plan (Dexilant and famotidine daily). * K21.9 Gastro-esophageal reflux disease without esophagitis* Recommendations:* Continue on present plan. Follow-up with PCP as recommended by their office. * G47.33 Obstructive sleep apnea (adult)* Recommendations:* Continue present plan. Follow-up with PCP as recommended by their office. She notes that her PCP has placed referral to Pulmonology on her behalf for further assessment of her CAROL. * All * Follow up:* 6 months with PFT. Sooner if needed. Functional Status Description No Information Available Mental Status Description No Information Available Referrals Description No Information Available
--- OUTSIDE RECORDS SUMMARY | 2020-08-19 10:52 | CCD ---
Author Organization Unknown Address [address] [place] [address] Phone [phone] Care Team Providers Care Bullet Swaging Machine Operator Name Role Phone Keke Sandoval Unavailable Unavailable Allergies Code Code System Name Reaction Severity Status Onset 3640 RxNorm Doxycycline Active 4053 RxNorm Erythromycin Base Active 5691 RxNorm Imipramine Active 6851 RxNorm Methotrexate Active 066393 RxNorm Topamax Active 743857 RxNorm Ultram Active Medications Name Status Start Date Stop Date albuterol sulfate HFA 90 mcg/actuation aerosol inhaler Active Not available alprazolam 0.5 mg tablet Completed 020 amlodipine 2.5 mg tablet TAKE ONE TABLET BY MOUTH EVERY DAY Active Not available amoxicillin 500 mg capsule Completed 06/06 Astelin 137 mcg (0.1 %) nasal spray aero roya [place] 2 sprays twice a day by intranasal route. Active Not available azelastine 0.15 % (205.5 mcg) nasal spra y USE 2 SPRAYS IN EACH NOSTRIL ONCE A DAY EVERY MORNING NEEDED Active Not available baclofen 10 mg tablet Completed 06/06/2020 baclofen 5 mg tablet Completed 06/06/2020 Benlysta 200 mg/mL subcutaneous auto-injector Completed 06/06/2020 bisoprolol 5 mg-hydrochlorothiazide 6.25 mg tablet Active Not available budesonide-formoterol HFA 80 mcg-4.5 mcg /actuation aerosol inhaler 2 puffs twice daily Active Not available calcium Active Not available calcium citrate 250 mg tablet TAKE 2 TABLETS 500MG BY MOUTH TWO TIMES A DAY Active Not available CellCept 500 mg tablet Completed 0 cephalexin 500 mg capsule Completed 2019 citalopram 20 mg tablet Completed 06/06/20 20 Dexilant 60 mg capsule, delayed release Active Not available diclofenac 3 % topical gel apply to the most painful areas twice daily as needed for pain Active Not available duloxetine 30 mg capsule,delayed release Completed 06/06/2020 famotidine 40 mg tablet TAKE ONE TABLET BY MOUTH EVERY EVENING Active Not available fluticasone propionate 50 mcg/actuation nasal spray,suspension 2 sprays once daily Active Not available gabapentin 100 mg capsule TAKE ONE CAPSULE BY MOUTH THREE TIMES A DAY Active Not available hydroxychloroquine 200 mg tablet 1 tablet once daily Active Not available levothyroxine 100 mcg tablet Active Not available lisinopril 10 mg-hydrochlorothiazide 12.5 mg tablet Completed 06/06/2020 magnesium 400 mg (as magnesium oxide) ta blet Take 1 tablet every day by oral route. Active Not available methocarbamol 500 mg tablet 1 tablet daily prn Active Not available nystatin 100,000 unit/gram topical cream Completed 06/06/2020 pantoprazole 40 mg tablet,delayed release Completed 06/06/2020 potassium chloride ER 10 mEq tablet,extended release Active Not available prednisone 10 mg tablet Completed 06/06/20 prednisone 2.5 mg tablet Completed prednisone 5 mg tablet TAKE ONE TABLET BY MOUTH EVERY DAY Active Not available Suprep Bowel Prep Kit 17.5 gram-3.13 gram-1.6 gram oral solution Completed 06/06/2020 venlafaxine ER 37.5 mg capsule,extended release 24 hr Active Not available Vitamin B-2 100 mg tablet Take 2 tablets twice a day by oral route. Active Not available Vitamin D3 25 mcg (1,000 unit) capsule Take 1 capsule every day by oral route. Active Not available warfarin 1 mg tablet Active Not availab le warfarin 5 mg tablet TAKE 2 TABLETS BY MOUTH DAILY Active Not avail able zonisamide 25 mg capsule Completed zonisamide 50 mg capsule Completed Problems Name Status Onset Date Source Hypothyroidism Active 06/06/2020 Vitamin D Deficiency Active 06/06/2020 Morbid Obesity Active 06/06/2020 Antiphospholipid Syndrome Active 06/06/2020 Depressive Disorder Active 06/06/2020 Obstructive Sleep Apnea Syndrome Active 06/06/2020 Hypertensive Disorder Active 06/06/2020 Allergic Rhinitis Active 06/06/2020 Asthma Active 06/06/2020 Gastroesophageal Reflux Disease without Esophagitis Active 06/06/2020 Endometriosis (Clinical) Active 06/06/2020 Lupus Erythematosus Active 06/06/2020 SjGren's Syndrome Active 06/06/2020 Urinary Incontinence Active 06/06/2020 Liver Function Tests Abnormal Active 06/06/2020 History of Pulmonary Embolus Active 06/06/2020 Procedures Date Name Performed by 04/11/2019 Hysterectomy Information not avai lable 04/13/2017 Foot/toes Surgery Procedure Information not available 05/16/2001 Gallbladder Surgery Information not avai lable 04/20/1977 Removal of Tonsils Notes: Pt unsure of month & date Information not available Notes: Hardware removed from L foot (11/30) Incarcerated hernia (1997 approx. date) leap surgery X 3 Results Lab Results Date Name Specimen Result Interpretation Description Value Range Status Address 08/04/2020 PT/INR High Prothrombin Time 25.3 secon ds 12.5-14.3 seconds [facility]: [address] [place] [address] Normal Inr 2.24 [facility]: [address] [place] [address] 07/21/2020 PT/INR High Prothrombin Time 25.5 secon ds 12.5-14.3 seconds [facility]: [address] [place] [address] Normal Inr 2.26 [facility]: [address] [place] [address] 07/16/2020 PT/INR High Prothrombin Time 21.1 secon ds 12.5-14.3 seconds [facility]: [address] [place] [address] Normal Inr 1.78 [facility]: [address] [place] [address] 07/07/2020 PT/INR High Prothrombin Time 23.3 secon ds 12.5-14.3 seconds [facility]: [address] [place] [address] Normal Inr 2.02 [facility]: [address] [place] [address] 06/23/2020 PT/INR High Prothrombin Time 25.5 secon ds 12.5-14.3 seconds [facility]: [address] [place] [address] Normal Inr 2.26 [facility]: [address] [place] [address] 06/11/2020 PT/INR High Prothrombin Time 27.1 secon ds 12.5-14.3 seconds [facility]: [address] [place] [address] Normal Inr 2.45 [facility]: [address] [place] [address] 05/29/2020 PT/INR High Prothrombin Time 23.8 secon ds 12.5-14.3 seconds [facility]: [address] [facility] Normal Inr 2.07 [facility]: [address] [facility] Past Encounters 08/04/2020 Generalized Anxiety Disorder; Moderate Recurrent Major Depression; Posttraumatic Stress Disorder Rosalia BocanegraAUTUMNSW: [address] [place] [phone], Ph. 07/11/2020 Generalized Anxiety Disorder; Moderate Recurrent Major Depression; Posttraumatic Stress Disorder Rosaliashirley BocanegraZI: [address] [place] [address], Ph. 07/04/2020 Chronic Pain; Chronic Serous Otitis Media Keke Sandoval PA-C: [address] [place] [address], Ph. 06/30/2020 Generalized Anxiety Disorder; Moderate Recurrent Major Depression; Posttraumatic Stress Disorder Rosalia LandAUTUMN workmanSW: [address] [place] [address], Ph. 06/23/2020 Generalized Anxiety Disorder; Moderate Recurrent Major Depression; Posttraumatic Stress Disorder Rosalia LandAUTUMN workmanSW: [address] [place] [address], Ph. 06/16/2020 Generalized Anxiety Disorder; Moderate Recurrent Major Depression Rosalia LandAUTUMN workmanSW: [address] [place] [phone], Ph. 06/13/2020 Generalized Anxiety Disorder; Moderate Recurrent Major Depression Rosalia LandAUTUMN workmanSW: [address] [place] [address], Ph. 06/06/2020 Generalized Anxiety Disorder; Moderate Recurrent Major Depression Rosalia LandAUTUMN workmanSW: [address] [place] [phone], Ph. 06/06/2020 Adult Health Examination; Obstructive Sleep Apnea Syndrome; Hypertensive Disorder; Hypothyroidism; Liver Function Tests Abnormal; SjGren's Syndrome; Vitamin D Deficiency; Asthma; Depressive Disorder; Endometriosis (Clinical); Gastroesophageal Reflux Disease without Esophagitis; Hypokalemia; History of Pulmonary Embolus; Lupus Erythematosus Keke Sandoval PA-C: [address] [place] [address], Ph. 05/28/2020 Generalized Anxiety Disorder; Moderate Recurrent Major Depression Rosalia Bocanegra LMSW: [address] [place] [address], Ph. Social History Tobacco Smoking Status Never Smoker Vaccine List None recorded. Plan of Care Reminders Provider Appointments None recorded. Lab None recorded. Referral None recorded. Procedures None recorded. Surgeries None recorded. Imaging None recorded. Vitals 07/04/2020 02:00PM ESTABLISHED [id number] Height Weight BMI Blood Pressure 68 in 335 lbs 2 oz 51 kg/m2 123/90 mm[Hg] 06/06/2020 08:00AM NEW PATIENT EXAM Height Weight BMI Blood Pressure 68 in 337 lbs 51.2 kg/m2 122/83 mm[Hg]
--- OUTSIDE RECORDS SUMMARY | 2020-08-19 10:52 | CCD ---
Author Organization Unknown Address [address] [place] [address] Phone [phone] Care Team Providers Care Microbiological Laboratory Technician Name Role Phone Keke Sandoval Unavailable Unavailable Allergies Code Code System Name Reaction Severity Status Onset 3640 RxNorm Doxycycline Active 4053 RxNorm Erythromycin Base Active 5691 RxNorm Imipramine Active 6851 RxNorm Methotrexate Active 120557 RxNorm Topamax Active 230108 RxNorm Ultram Active Medications Name Status Start Date Stop Date albuterol sulfate HFA 90 mcg/actuation a erosol inhaler 2 puffs q4-6hrs as needed for cough/wheezing Active Not available alprazolam 0.5 mg tablet Completed 020 amoxicillin 500 mg capsule Completed 06/06 Astelin 137 mcg (0.1 %) nasal spray aero roya [place] 2 sprays twice a day by intranasal route. Active Not available baclofen 10 mg tablet [...] 20 Dexilant 60 mg capsule, delayed release TAKE ONE CAPSULE BY MOUTH EVERY DAY Active Not available duloxetine 30 mg capsule,delayed release Completed 06/06/2020 famotidine 40 mg tablet once daily in the evening Active Not available fluticasone propionate 50 mcg/actuation [...] mg tablet Completed prednisone 5 mg tablet Active Not avail able Suprep Bowel Prep Kit 17.5 gram-3.13 gram-1.6 [...] Not availab le warfarin 5 mg tablet Active Not availab le zonisamide 25 mg capsule Completed zonisamide 50 [...] Result Interpretation Description Value Range Status Address 07/07/2020 PT/INR High Prothrombin Time 23.3 secon ds 12.5-14.3 seconds [facility]: [address] [place] [address] Normal Inr 2.02 [facility]: [address] [place] [address] 06/23/2020 PT/INR High Prothrombin Time 25.5 secon ds 12.5-14.3 seconds [facility]: [address] [place] [address] Normal Inr 2.26 [facility]: [address] [place] [address] 06/11/2020 PT/INR High Prothrombin Time 27.1 secon ds 12.5-14.3 seconds [facility]: [address] [place] [address] Normal Inr 2.45 [facility]: [address] [place] [address] 05/29/2020 PT/INR High Prothrombin Time 23.8 secon ds 12.5-14.3 seconds [facility]: [address] [facility] Normal Inr 2.07 [facility]: [address] [facility] Past Encounters 07/11/2020 Rosalia Bocanegra LMSW: [address] [place] [address], Ph. 07/04/2020 Chronic Pain; Chronic Serous Otitis Media Keke Sandoval PA-C: [address] [place] [address], Ph. 06/30/2020 Generalized Anxiety Disorder; Moderate Recurrent Major Depression; Posttraumatic Stress Disorder Rosalia Bocanegra LMSW: [address] [place] [address], Ph. 06/23/2020 Generalized Anxiety Disorder; Moderate Recurrent Major Depression; Posttraumatic Stress Disorder Rosalia Bocanegra LMSW: [address] [place] [address], Ph. 06/16/2020 Generalized Anxiety Disorder; Moderate Recurrent Major Depression Rosalia Bocanegra LMSW: [address] [place] [phone], Ph. 06/13/2020 Generalized Anxiety Disorder; Moderate Recurrent Major Depression Rosalia Bocanegra LMSW: [address] [place] [address], Ph. 06/06/2020 Generalized Anxiety Disorder; Moderate Recurrent Major Depression Rosalia Bocanegra [facility]: [address] [place] [address], Ph. 06/06/2020 Adult Health Examination; Obstructive Sleep Apnea Syndrome; Hypertensive Disorder; Hypothyroidism; Liver Function Tests Abnormal; SjGren's Syndrome; Vitamin D Deficiency; Asthma; Depressive Disorder; Endometriosis (Clinical); Gastroesophageal Reflux Disease without Esophagitis; Hypokalemia; History of Pulmonary Embolus; Lupus Erythematosus Keke Sandoval PA-C: [address] [place] [phone], Ph. 05/28/2020 Generalized Anxiety Disorder; Moderate Recurrent Major Depression Rosalia Bocanegra LMSW: [address] [place] [phone], Ph. Social History Tobacco Smoking Status Never Smoker Vaccine List None recorded. Plan of Care Reminders Provider Appointments None recorded. Lab None recorded. Referral None recorded. Procedures None recorded. Surgeries None recorded. Imaging None recorded. Vitals 07/04/2020 02:00PM ESTABLISHED [id number] Height Weight BMI Blood Pressure 68 in 335 lbs 2 oz 51 kg/m2 123/90 mm[Hg] 06/06/2020 08:00AM NEW PATIENT EXAM Height Weight BMI Blood Pressure 68 in 337 lbs 51.2 kg/m2 122/83 mm[Hg]
--- OUTSIDE RECORDS SUMMARY | 2020-08-19 10:52 | CCD ---
Author Organization Unknown Address [address] [place] [address] Phone [phone] Care Team Providers Care Turbine Attendant Name Role Phone Keke Sandoval Unavailable Unavailable Allergies Code Code System Name Reaction Severity Status Onset 3640 RxNorm Doxycycline Active 4053 RxNorm Erythromycin Base Active 5691 RxNorm Imipramine Active 6851 RxNorm Methotrexate Active 055982 RxNorm Topamax Active 432659 RxNorm Ultram Active Medications Name Status Start Date Stop Date albuterol sulfate HFA 90 mcg/actuation a erosol inhaler 2 puffs q4-6hrs as needed for cough/wheezing Active Not available alprazolam 0.5 mg tablet Completed 020 amoxicillin 500 mg capsule Completed 06/06 Astelin 137 mcg (0.1 %) nasal spray aero roya [place] 2 sprays twice a day by intranasal [...] Prothrombin Time 23.3 secon ds 12.5-14.3 seconds [facility]: [address] [place] [address] Normal Inr 2.02 [facility]: [address] [place] [address] 06/23/2020 PT/INR High Prothrombin Time 25.5 secon ds 12.5-14.3 seconds [facility]: [address] [place] [address] Normal Inr 2.26 [facility]: [address] [place] [address] 06/11/2020 PT/INR High Prothrombin Time 27.1 secon ds 12.5-14.3 seconds [facility]: [address] [place] [address] Normal Inr 2.45 [facility]: [address] [place] [address] 05/29/2020 PT/INR High Prothrombin Time 23.8 secon ds 12.5-14.3 seconds [facility]: [address] [facility] Normal Inr 2.07 [facility]: [address] [facility] Past Encounters 07/11/2020 Generalized Anxiety Disorder; Moderate Recurrent Major Depression; Posttraumatic Stress Disorder Rosalia Bocanegra LMSW: [address] [place] [address], Ph. 07/04/2020 Chronic Pain; Chronic Serous Otitis Media Keke Sandoval PA-C: [address] [place] [address], Ph. 06/30/2020 Generalized Anxiety Disorder; Moderate Recurrent Major Depression; Posttraumatic Stress Disorder Rosalia Bocanegra LMSW: [address] [place] [address], Ph. 06/23/2020 Generalized Anxiety Disorder; Moderate Recurrent Major Depression; Posttraumatic Stress Disorder Rosalia Bocanegra LMSW: [address] [place] [address], Ph. 06/16/2020 Generalized Anxiety Disorder; Moderate Recurrent Major Depression Rosalia Bocanegra LMSW: [address] [place] [phone], Ph. 06/13/2020 Generalized Anxiety Disorder; Moderate Recurrent Major Depression Rosalia Bocanegra LMSW: [address] [place] [address], Ph. 06/06/2020 Generalized Anxiety Disorder; Moderate Recurrent Major Depression Rosalia Bocanegra [facility]: [address] [place] [phone], Ph. 06/06/2020 Adult Health Examination; Obstructive Sleep Apnea Syndrome; Hypertensive Disorder; Hypothyroidism; Liver Function Tests Abnormal; SjGren's Syndrome; Vitamin D Deficiency; Asthma; Depressive Disorder; Endometriosis (Clinical); Gastroesophageal Reflux Disease without Esophagitis; Hypokalemia; History of Pulmonary Embolus; Lupus Erythematosus Keke Sandoval PA-C: [address] [place] [address], Ph. 05/28/2020 Generalized Anxiety Disorder; Moderate Recurrent Major Depression Rosalia Bocanegra [facility]: [address] [place] [phone], Ph. Social History Tobacco Smoking Status Never Smoker Vaccine List None recorded. Plan of Care Reminders Provider Appointments None recorded. Lab None recorded. Referral None recorded. Procedures None recorded. Surgeries None recorded. Imaging None recorded. Vitals 07/04/2020 02:00PM ESTABLISHED [id number] Height Weight BMI Blood Pressure 68 in 335 lbs 2 oz 51 kg/m2 123/90 mm[Hg] 06/06/2020 08:00AM NEW PATIENT EXAM Height Weight BMI Blood Pressure 68 in 337 lbs 51.2 kg/m2 122/83 mm[Hg]
--- OUTSIDE RECORDS SUMMARY | 2020-08-19 10:52 | CCD | Continuity of Care Document ---
Author Author Rosetta KERR M.D. Organization Unknown Address [address], [place] [address] Phone [phone] Care Team Providers Care Power Generation Technician Name Role Phone TodJuve king Sabino AUTM [phone] Problems Active Problems Provider Date Mild persistent [...] day Unknown History Medications Flonase Sensimist 27 .5mcg/[place] Suspension 2 sprays each nostril every night [...] Available Procedures Date Code Description Status 07/21/2020 40500 Bronchodilation Resp onsiveness Spirometry Pre/Post Bronchodil Adm [...]
--- OUTSIDE RECORDS SUMMARY | 2020-08-19 10:52 | CCD | Continuity of Care Document ---
Author Author Rosetta BREWSTER PA-C Organization Unknown Address [address] [place] [address] Phone [phone] Care Team Providers Care Contracting Specialist Name Role Phone Keke Sandoval AUTM Problems Description No Information Available Social History [...] Vital Signs Date Vital Result Comment 07/21/2020 9:15am Body Temperature 96.8 F 03/26/2020 9:43am Body Temperature 95.3 F Height 68 inches 5'8" Weight 329.00 lb BMI (Body Mass Index) 50.0 kg/m2 Results Description No Information Available Procedures Date Code Description Status 07/21/2020 27413 X-Ray Knee Complete W/Obliques & Tunnel And/Or Standing Views Completed 05/28/202055782 Inject/Drain Joint/Bursa Major C ompleted 05/16/2020 Inject/Drain Joint/Bursa Major C ompleted 05/05/202024796 Inject/Drain Joint/Bursa Major C ompleted 04/03/2020 39722 Apply Cast Short Leg Completed 03/26/2020 12432 X-Ray Knee Complete W/Obliques & Tunnel And/Or Standing Views Completed 03/26/202049128 Inject/Drain Joint/Bursa Major C ompleted 03/04/2020 61306 X-Ray Foot Complete Completed 03/04/2020 99782 X-Ray Ankle Complete Completed Medical Devices Description No Information Available Encounters Type Date Location Provider Dx Diagnosis Office Visit 07/02/2020 1:00p Jakub Payan M17.12 Unilateral primary osteoarthritis, left knee R22.42 [...] leg, subs Office Visit 04/03/2020 1:30p Savanah Garrett MD S86. 111A Strain musc/tend post [...] of right foot Office Visit 03/04/2020 3:30p [place] Gabbi Garrett MD M19. 072 Primary osteoarthritis, left ankle and foot M19.071 Primary osteoarthritis, righ t ankle and foot M21.42 Flat foot [pes planus] (acqu ired), left foot M21.41 Flat foot [pes planus] (acqu ired), right foot Assessments Date Code Description Provider 07/21/2020 M17.12 Unilateral primary osteoarthriti s, left knee SUSSY BustosC 07/21/2020 R22.42 Localized swelling, mass and lum p, left lower limb SUSSY BustosC 07/02/2020 M17.12 Unilateral primary osteoarthriti s, left [...] 2:30 pm - Jeet Kelly PA-C at [place] * 08/04/2020 1:15 pm - Gabbi Garrett MD at [place] 07/21/2020 - Saray Brewster PA-C* M17.12 Unilateral primary osteoarthritis, left knee* Follow up:* 1 month with [facility] for misty knee recheck * R22.42 Localized swelling, mass and lump, left lower limb Functional Status Description No Information Available Mental Status Description No Information Available Referrals Refer to Dr Reason for Referral Status Appt Date Gabbi Garrett MD EUFLEXXA PER WEB NO AUTH REQUIRED 20% COI N. LS Created [address] [place] [address] [phone] Jeet Kelly PAPeytonC DME NO AUTH REQUIRED ECONOMY HINGED KNEE ([id number]) TO ROSA Created [address] [place] [address] [phone] Gabbi Garrett MD DME [employer] PER WEB NO AUTH REQUIRED. 20% COIN. LS Created [facility] [place] [address] [phone] Gabbi Garrett MD DME PER B/S WEB NO AUTH REQU IRED FOR ANKLE LACE UP(L1902) AND COVERED AT 80% UNTIL THEY MEET THERE OUT OF POCKET OF $5000 TO ROSA Created [facility] [place] [address] [phone]
--- OUTSIDE RECORDS SUMMARY | 2020-08-19 10:52 | CCD ---
Author Organization Unknown Address [address] [place] [address] Phone [phone] Care Team Providers Care It Applications Developer Name Role Phone Keke Sandoval Unavailable Unavailable Allergies Code Code System Name Reaction Severity Status Onset 3640 RxNorm Doxycycline Active 4053 RxNorm Erythromycin Base Active 5691 RxNorm Imipramine Active 6851 RxNorm Methotrexate Active 155135 RxNorm Topamax Active 521726 RxNorm Ultram Active Medications Name Status Start Date Stop Date albuterol sulfate HFA 90 mcg/actuation a erosol inhaler 2 puffs q4-6hrs as needed for cough/wheezing Active Not available alprazolam 0.5 mg tablet Completed 020 amoxicillin 500 mg capsule Completed 06/06 Astelin 137 mcg (0.1 %) nasal spray aero roya [place] 2 sprays twice a day by intranasal [...] Prothrombin Time 23.3 secon ds 12.5-14.3 seconds [facility]: [address] [place] [address] Normal Inr 2.02 [facility]: [address] [place] [address] 06/23/2020 PT/INR High Prothrombin Time 25.5 secon ds 12.5-14.3 seconds [facility]: [address] [place] [address] Normal Inr 2.26 [facility]: [address] [place] [address] 06/11/2020 PT/INR High Prothrombin Time 27.1 secon ds 12.5-14.3 seconds [facility]: [address] [place] [address] Normal Inr 2.45 [facility]: [address] [place] [address] 05/29/2020 PT/INR High Prothrombin Time 23.8 secon ds 12.5-14.3 seconds [facility]: [address] [facility] Normal Inr 2.07 [facility]: 0 [facility] Past Encounters 07/11/2020 Generalized Anxiety Disorder; Moderate Recurrent Major Depression; Posttraumatic Stress Disorder Rosalia Bocanegra LMSW: [address] [place] [address], Ph. 07/04/2020 Chronic Pain; Chronic Serous Otitis Media Keke Sandoval PA-C: [address] [place] [address], Ph. 06/30/2020 Generalized Anxiety Disorder; Moderate Recurrent Major Depression; Posttraumatic Stress Disorder Rosalia Bocanegra LMSW: [address] [place] [address], Ph. 06/23/2020 Generalized Anxiety Disorder; Moderate Recurrent Major Depression; Posttraumatic Stress Disorder Rosalia Bocanegra LMSW: [address] [place] [address], Ph. 06/16/2020 Generalized Anxiety Disorder; Moderate Recurrent Major Depression Rosalia Bocanegra LMSW: [address] [place] [phone], Ph. 06/13/2020 Generalized Anxiety Disorder; Moderate Recurrent Major Depression Rosalia Bocanegra LMSW: [address] [place] [address], Ph. 06/06/2020 Generalized Anxiety Disorder; Moderate Recurrent Major Depression Rosalia Bocanegra [facility]: [address] [place] [address], Ph. 06/06/2020 Adult Health Examination; Obstructive Sleep Apnea Syndrome; Hypertensive Disorder; Hypothyroidism; Liver Function Tests Abnormal; SjGren's Syndrome; Vitamin D Deficiency; Asthma; Depressive Disorder; Endometriosis (Clinical); Gastroesophageal Reflux Disease without Esophagitis; Hypokalemia; History of Pulmonary Embolus; Lupus Erythematosus Keke Sandoval PA-C: [address] [place] [phone], Ph. 05/28/2020 Generalized Anxiety Disorder; Moderate Recurrent Major Depression Rosalia Bocanegra [facility]: [address] [place] [phone], Ph. Social History Tobacco Smoking Status Never Smoker Vaccine List None recorded. Plan of Care Reminders Provider Appointments None recorded. Lab None recorded. Referral None recorded. Procedures None recorded. Surgeries None recorded. Imaging None recorded. Vitals 07/04/2020 02:00PM ESTABLISHED [id number] Height Weight BMI Blood Pressure 68 in 335 lbs 2 oz 51 kg/m2 123/90 mm[Hg] 06/06/2020 08:00AM NEW PATIENT EXAM Height Weight BMI Blood Pressure 68 in 337 lbs 51.2 kg/m2 122/83 mm[Hg]
--- OUTSIDE RECORDS SUMMARY | 2020-08-19 10:53 | CCD ---
Author Organization Unknown Address [address] [place] [address] Phone [phone] Care Team Providers Care Banking Consultant Name Role Phone Keke Sandoval Unavailable Unavailable Allergies Code Code System Name Reaction Severity Status Onset 3640 RxNorm Doxycycline Active 4053 RxNorm Erythromycin Base Active 5691 RxNorm Imipramine Active 6851 RxNorm Methotrexate Active 395476 RxNorm Topamax Active 571144 RxNorm Ultram Active Medications Name Status Start Date Stop Date albuterol sulfate HFA 90 mcg/actuation a erosol inhaler 2 puffs q4-6hrs as needed for cough/wheezing Active Not available alprazolam 0.5 mg tablet Completed 020 amoxicillin 500 mg capsule Completed 06/06 Astelin 137 mcg (0.1 %) nasal spray aero roya [place] 2 sprays twice a day by intranasal [...] Active Not available gabapentin 100 mg capsule Take 1 capsule 3 times a day by oral route. Active Not available hydroxychloroquine 200 mg tablet [...] Performed by 04/11/2019 Hysterectomy Information not avai labpricila 04/13/2017 Foot/toes Surgery Procedure Information not available 05/16/2001 Gallbladder Surgery Information not avai lable 04/20/1977 Removal of Tonsils Notes: Pt unsure of month & date Information not available Notes: Hardware removed from L foot (11/30) Incarcerated hernia (1997 approx. date) leap surgery X 3 Results Lab Results Date Name Specimen Result Interpretation Description Value Range Status Address 06/23/2020 PT/INR High Prothrombin Time 25.5 secon ds 12.5-14.3 seconds [facility]: [address] [facility] Normal Inr 2.26 [facility]: [address] [facility] 06/11/2020 PT/INR High Prothrombin Time 27.1 secon ds 12.5-14.3 seconds [facility]: [address] [facility] Normal Inr 2.45 [facility]: [address] [facility] 05/29/2020 PT/INR High Prothrombin Time 23.8 secon ds 12.5-14.3 seconds [facility]: [address] [facility] Normal Inr 2.07 [facility]: [address] [facility] Past Encounters 07/04/2020 Chronic Pain; Chronic Serous Otitis Media Keke Sandoval PA-C: [address] [place] [address], Ph. 06/30/2020 Rosalia Bocanegra LMSW: [address] [place] [address], Ph. 06/23/2020 Generalized Anxiety Disorder; Moderate Recurrent Major Depression; Posttraumatic Stress Disorder Rosalia Bocanegra LMSW: [address] [place] [address], Ph. 06/16/2020 Generalized Anxiety Disorder; Moderate Recurrent Major Depression Rosalia Bocanegra [facility]: [address] [place] [address], Ph. 06/13/2020 Generalized Anxiety Disorder; Moderate Recurrent Major Depression Rosalia Bocanegra [facility]: [address] [place] [address], Ph. 06/06/2020 Generalized Anxiety Disorder; Moderate Recurrent Major Depression Rosalia Bocanegra LMSW: [address] [place] [address], Ph. 06/06/2020 Adult Health Examination; Obstructive Sleep Apnea Syndrome; Hypertensive Disorder; Hypothyroidism; Liver Function Tests Abnormal; SjGren's Syndrome; Vitamin D Deficiency; Asthma; Depressive Disorder; Endometriosis (Clinical); Gastroesophageal Reflux Disease without Esophagitis; Hypokalemia; History of Pulmonary Embolus; Lupus Erythematosus Keke Sandoval PA-C: [address] [place] [address], Ph. 05/28/2020 Generalized Anxiety Disorder; Moderate Recurrent Major Depression Rosalia Bocanegra LMSW: [address] [place] [address], Ph. Social History Tobacco Smoking Status Never Smoker Vaccine List None recorded. Plan of Care Reminders Provider Appointments None recorded. Lab None recorded. Referral None recorded. Procedures None recorded. Surgeries None recorded. Imaging None recorded. Vitals 07/04/2020 02:00PM ESTABLISHED [id number] Height Weight BMI Blood Pressure 68 in 335 lbs 2 oz 51 kg/m2 123/90 mm[Hg] 06/06/2020 08:00AM NEW PATIENT EXAM Height Weight BMI Blood Pressure 68 in 337 lbs 51.2 kg/m2 122/83 mm[Hg]
--- OUTSIDE RECORDS SUMMARY | 2020-08-19 10:53 | CCD | Continuity of Care Document ---
Author Author Rosetta GORDILLO MD Organization Unknown Address [address] [place] [address] Phone [phone] Care Team Providers Care Director Staffing Name Role Phone Juve Baron AUTM AUTM Unavailable Juve Baron AUTM Manisha Uriarte M.D. AUTM [phone] Problems Description No Active Problems Social History Type Date Description Comments Sex Unknown ETOH Use Denies alcohol use Recreational Drug Use Denies Drug Use Tobacco Use Start: Unknown Denies Smoking Allergies, Adverse Reactions, Alerts Active Allergies Reaction Severity Comments Date Topamax methotr 10/09/2009 Doxycycline 10/09/2009 Imipramine 10/09/2009 Methotrexate 10/09/2009 Ultram 10/09/2009 Erythromycin 10/09/2009 Medications Active Medications SIG Qnty Indications Ordering Provide r Date Suprep Bowel Prep Kit 17.5-3.13-1.6GM/177ML Solution take per doctor's bowel prep instructions. 354ml K21.9 Alan Gordillo MD 03/21/2020 Milk Of Magnesia 1200mg/15ML Suspe nsion take 45 milliliters by mouth as directed on colonoscopy prep sheet. K21.9 Alan Gordillo MD 03/21/2020 Flonase Allergy Relief 50mcg/Act Suspension 2 sprays per nostril daily Unknown 0 Symbicort 80-4.5mcg/Act Aerosol 2 puff twice a day Unknown Albuterol Sulfate Powder 2 puffs every 4hr as needed Unknown Dexilant 60mg Capsules DR 1 by mouth every day Unknown Methocarbamol 500mg Tablets p rn Unknown Riboflavin 100mg Capsules 2 b id Unknown Vitamin K (Phytonadione) 100mcg Ta blets Daily Unknown Calcium Citrate + Tablets Da alysia Unknown Vitamin D-3 25mcg (1000 Ut) Capsul es Daily Unknown Bisoprolol Fumarate/Hydrochlorothiazide 5-6.25mg Tablets Daily Unknown Warfarin Sodium 10mg Tablets 1 by mouth Tue-, 11 mg on sat and sun Unknown 0 Fish Oil 1200mg Capsules DR Sabino payne Unknown Levothyroxine Sodium 100mcg Tablet s 1 by mouth every day Unknown Klor-Con 10 10Meq Tablets ER 2 tabs daily Unknown Prednisone 5mg Tablets 1 qd Unknown Immunizations Description No Information Available Vital Signs Date Vital Result Comment 03/21/2020 9:12am BP Systolic 118 mmHg BP Diastolic 84 mmHg Height 68 inches 5'8" Weight 329.00 lb BMI (Body Mass Index) 50.0 kg/m2 Carney Body Weight 140 lb Weight 149.234 kg BSA (Body Surface Area) 2.53 m2 12/20/2019 9:15am BP Systolic 112 mmHg BP Diastolic 82 mmHg Height 68 inches 5'8" Weight 325.00 lb BMI (Body Mass Index) 49.4 kg/m2 Carney Body Weight 140 lb Weight 147.420 kg BSA (Body Surface Area) 2.51 m2 Results Test Acquired Date Facility Test Result H/L Range Note Laboratory test finding 05/26/2020 [facility] [address] [place] [address] [phone] Pathology Request For Service (SEE NOTE) 1 1 FINAL DIAGNOSIS A-Gastric polyp, biopsy: Gastric mucosa with foveolar hyperplasia and inflammation. B-Gastric, biopsy: Gastric mucosa with mild chronic inflammation and reparative changes. No H.pylori is identified. 05/28/2020 - 0935 CLINICAL DIAGNOSIS Screening colonoscopy, heartburn 05/27/2020 - 1445 GROSS DIAGNOSIS A - Received in formalin labeled "gastric polyp biopsy" and consists of a fragment of tissue 0.2 x 0.2 x 0.1 cm. All in one. B - Received in formalin labeled "biopsy gastritis" and consists of a fragment of tissue 0.2 x 0.1 x 0.1 cm. All in one. -OA 05/27/2020 - 1445 Signed WILMER QUIÑONEZ MD 05/28/2020 0936 Procedures Date Code Description Status 05/26/2020 83935 Colonoscopy Flexible Proximal To Splenic Flexure Diagnostic W/Or Completed 05/26/2020 52768 Endoscopy Upper GI Biopsy Comple jeremiah Medical Devices Description No Information Available Encounters Type Date Location Provider Dx Diagnosis Office Visit 03/21/2020 9:00a [facility] Gisel ssa A Charlebois, RPA-C K21.9 Gastro-esophageal reflux dis ease without esophagitis F45.8 Other somatoform disorders R05 Cough Z12.11 Encounter for screening for malignant neoplasm of colon Office Visit 12/20/2019 9:00a [facility] Gisel ssa A Charlebois, RPA-C K21.9 Gastro-esophageal reflux dis ease without esophagitis F45.8 Other somatoform disorders R05 Cough Assessments Date Code Description Provider 05/26/2020 Z12.11 Encounter for screening for roberto gnant neoplasm of colon Alan Gordillo MD 05/26/2020 K64.8 Other hemorrhoids Alan Gordillo MD 05/26/2020 K29.70 Gastritis, unspecified, without bleeding Alan Gordillo MD 05/26/2020 K31.7 Polyp of stomach and duodenum Da taj Gordillo MD 03/21/2020 K21.9 Gastro-esophageal reflux disease without esophagitis Loren A Charlebois, RPA-C 03/21/2020 F45.8 Other somatoform disorders Remedios sa A Charlebois, RPA-C 03/21/2020 R05 Cough Loren A Niraj bois, RPA-C 03/21/2020 Z12.11 Encounter for screening for roberto gnant neoplasm of colon Loren A Charlebois, RPA-C 12/20/2019 K21.9 Gastro-esophageal reflux disease without esophagitis Loren A Charlebois, RPA-C 12/20/2019 F45.8 Other somatoform disorders Remedios sa A Charlebois, RPA-C 12/20/2019 R05 Cough Loren A Niraj bois, RPA-C Plan of Treatment 03/21/2020 - IRINA Arreola* K21.9 Gastro-esophageal reflux disease without esophagitis * F45.8 Other somatoform disorders * R05 Cough * Z12.11 Encounter for screening for malignant neoplasm of colon * * New Medication:* Suprep Bowel Prep Kit 17.5-3.13-1.6 GM/177ML * Milk Of Magnesia 1200 mg/15ML * New Orders:* Endoscopy, Ordered: 03/21/20 * Comments:* Will arrange for upper endoscopy and colonoscopy. Reviewed risks and benefits of the procedures, as well as other options, with the patient. Prep for this procedure was discussed with patient, including risks and side effects associated with the prep. Patient will not stop warfarin for this procedure due to underlying antiphospholipid syndrome. Patient verbalized understanding of all of the above and is in agreement to proceed. Patient will seek medical attention for any acute changes. Will monitor. * Follow up:* As scheduled, sooner if needed. Functional Status Description No Information Available Mental Status Description No Information Available Referrals Description No Information Available
--- OUTSIDE RECORDS SUMMARY | 2020-08-19 10:53 | CCD ---
Continuity of Care Document (CCD) Created on: 07/11/2020 Kevin Rosetta Donald External Reference #: [id number] : [id number] Sex: Female Author Author Rosetta SHELL P.A. Organization Unknown Address [address] [place] [address], [facility] e [address] [place] [address] Phone [phone] Care Team Providers Care Corporate Legal Intern Name Role Phone Keke Sandoval AUTM [phone] Problems Description No Information Available Social [...] Available Vital Signs Date Vital Result Comment 03/26/2020 9:43am Body Temperature 95.3 F Height 68 inches 5'8" Weight 329.00 lb BMI (Body Mass Index) 50.0 kg/m2 12/25/2019 3:34pm Body Temperature 96.5 F Height 68 inches 5'8" Weight 320.00 lb BMI (Body Mass Index) 48.7 kg/m2 Results Description No Information Available Procedures Date Code Description Status 05/28/2020 Inject/Drain Joint/Bursa Major C ompleted 05/16/2020 Inject/Drain Joint/Bursa Major C ompleted 05/05/2020 Inject/Drain Joint/Bursa Major C ompleted 04/03/2020 93757 Apply Cast Short Leg Completed 03/26/2020 29817 X-Ray Knee Complete W/Obliques & Tunnel And/Or Standing Views Completed 03/26/2020 Inject/Drain Joint/Bursa Major C ompleted 03/04/2020 05932 X-Ray Foot Complete Completed 03/04/2020 96797 X-Ray Ankle Complete Completed Medical Devices Description [...] of right foot Office Visit 03/04/2020 3:30p [facility] Gabbi Garrett MD M19. 072 Primary osteoarthritis, left ankle and foot M19.071 Primary osteoarthritis, righ t ankle and foot M21.42 Flat foot [pes planus] (acqu ired), left foot M21.41 Flat foot [pes planus] (acqu ired), right foot Assessments Date Code Description Provider 07/02/2020 M17.12 Unilateral primary osteoarthriti s, left knee Juve Shell, P.A. 07/02/2020 R22.42 Localized swelling, mass and lum p, left lower limb Juve Shell P.A. 06/12/2020 M21.42 Flat foot [pes planus] [...] Paredes PA-C 04/03/2020 S86.111A Strain of other [facility] le(s) and tendon(s) of posterior muscle group at lower leg level, right leg, initial encounter Gabbi Garrett MD 04/03/2020 S86.111A Strain of other [facility] le(s) and tendon(s) of posterior muscle group [...] Garrett MD Plan of Treatment Future Appointment(s):* 08/07/2020 10:45 am - Jeet Kelly PA-C at [facility] * 08/04/2020 1:15 pm - Gabbi Garrett MD at [facility] 06/12/2020 - Gabbi Garrett MD* M21.42 Flat foot [pes planus] (acquired), left foot * M21.41 Flat foot [pes planus] (acquired), right foot * M79.672 Pain in left foot* Follow up:* after with NMN for left foot mri results please. Functional Status Description No Information Available Mental Status Description No Information Available Referrals Refer to Reason for Referral Status Appt Date Gabbi Garrett MD EUFLEXXA PER WEB NO AUTH REQUIRED 20% COI N. Created [address] [place] [address] [phone] Jeet Kelly, PAPeytonC DME NO AUTH REQUIRED ECONOMY HINGED KNEE (L1812) TO ROSA Created [address] [place] [address] [phone] Gabbi Garrett MD DME C[employer] WALKER PER WEB NO AUTH REQUIRED. 20% COIN. Created [address] [place] [address] [phone] Gabbi Garrett MD DME PER B/S WEB NO AUTH REQU IRED FOR ANKLE LACE UP(L1902) AND COVERED AT 80% UNTIL THEY MEET THERE OUT OF POCKET OF $5000 TO [facility] Created [address] [place] [address] [phone]
--- OUTSIDE RECORDS SUMMARY | 2020-08-19 10:53 | CCD ---
Author Organization Unknown Address [address] [place] [address] Phone [phone] Care Team Providers Care Pre Wave Assembler Name Role Phone Keke Sandoval Unavailable Unavailable Allergies Code Code System Name Reaction Severity Status Onset 3640 RxNorm Doxycycline Active 4053 RxNorm Erythromycin Base Active 5691 RxNorm Imipramine Active 6851 RxNorm Methotrexate Active 287072 RxNorm Topamax Active 309009 RxNorm Ultram Active Medications Name Status Start Date Stop Date albuterol sulfate HFA 90 mcg/actuation a erosol inhaler 2 puffs q4-6hrs as needed for cough/wheezing Active Not available alprazolam 0.5 mg tablet Completed 020 amoxicillin 500 mg capsule Completed 06/06 baclofen 10 mg tablet Completed 06/06/2020 baclofen 5 mg tablet Completed 06/06/2020 Benlysta 200 mg/mL subcutaneous auto-injector Completed 06/06/2020 bisoprolol 5 mg-hydrochlorothiazide 6.25 mg tablet 1 tablet once daily Active Not available budesonide-formoterol HFA 80 mcg-4.5 [...] 20 Dexilant 60 mg capsule, delayed release 1 tablet once daily Active Not available duloxetine 30 mg capsule,delayed release Completed 06/06/2020 famotidine 40 mg tablet once daily in the evening Active Not available fluticasone propionate 50 mcg/actuation nasal spray,suspension 2 sprays once daily Active Not available hydroxychloroquine 200 mg tablet [...] mg tablet Completed prednisone 5 mg tablet Completed 0 Suprep Bowel Prep Kit 17.5 gram-3.13 gram-1.6 [...] Name Performed by 04/11/2019 Hysterectomy Information not libby castillo 04/13/2017 Foot/toes Surgery Procedure Information not available 05/16/2001 Gallbladder Surgery Information not libby labpricila 04/20/1977 Removal of Tonsils Notes: Pt unsure of month & date Information not available Notes: Hardware removed from L foot (11/30) Incarcerated hernia (1997 approx. date) leap surgery X 3 Results Lab Results Date Name Specimen Result Interpretation Description Value Range Status Address 06/11/2020 PT/INR High Prothrombin Time 27.1 secon ds 12.5-14.3 seconds Final [facility]: [address] [facility] Normal Inr 2.45 Final [facility]: [address] [facility] Past Encounters 06/16/2020 Generalized Anxiety Disorder; Moderate Recurrent Major Depression [facility] [address] [place] [address], Ph. 06/13/2020 Generalized Anxiety Disorder; Moderate Recurrent Major Depression Rosalia Bocanegra [facility]: [address] [place] [address], Ph. 06/06/2020 Generalized Anxiety Disorder; Moderate Recurrent Major Depression [facility] [address] [place] [address], Ph. 06/06/2020 Adult Health Examination; Obstructive Sleep Apnea Syndrome; Hypertensive Disorder; Hypothyroidism; Liver Function Tests Abnormal; SjGren's Syndrome; Vitamin D Deficiency; Asthma; Depressive Disorder; Endometriosis (Clinical); Gastroesophageal Reflux Disease without Esophagitis; Hypokalemia; History of Pulmonary Embolus; Lupus Erythematosus Keke Sandoval PA-C: [address] [place] [address], Ph. 05/28/2020 Generalized Anxiety Disorder; Moderate Recurrent Major Depression [facility] [address] [place] [address], Ph. Social History Tobacco Smoking Status Never Smoker Vaccine List None recorded. Plan of Care Reminders Provider Appointments None recorded. Lab None recorded. Referral None recorded. Procedures None recorded. Surgeries None recorded. Imaging None recorded. Vitals Height Weight BMI Blood Pressure 68 in 337 lbs 51.2 kg/m2 122/83 mm[Hg]
--- OUTSIDE RECORDS SUMMARY | 2020-08-19 10:53 | CCD | Continuity of Care Document ---
Author Author Rosetta CEDILLO P.A. Organization Unknown Address [address] [place] [address], [address] [address] Phone [phone] Care Team Providers Care Electrical Helper Name Role Phone Keke Sandoval AUTM [phone] Problems Description No Information Available Social History [...] 05/05/2020 Inject/Drain Joint/Bursa Major C ompleted 04/03/2020 56207 Apply Cast Short Leg Completed 03/26/2020 89617 X-Ray Knee Complete W/Obliques & Tunnel And/Or Standing Views Completed 03/26/2020 87233 Inject/Drain Joint/Bursa Major C ompleted 03/04/2020 66913 X-Ray Foot Complete Completed 03/04/2020 11793 X-Ray Ankle Complete Completed Medical Devices Description No Information Available Encounters Type Date Location Provider Dx Diagnosis Office Visit 06/12/2020 8:00a Savanah Garrett MD [...] of right foot Office Visit 03/04/2020 3:30p [place] Gabbi Garrett MD M19. 072 Primary osteoarthritis, left ankle and foot M19.071 Primary osteoarthritis, righ t ankle and foot M21.42 Flat foot [pes planus] (acqu ired), left foot M21.41 Flat foot [pes planus] (acqu ired), right foot Assessments Date Code Description Provider 07/02/2020 M17.12 Unilateral primary osteoarthriti s, left knee Jakub Harrison 06/12/2020 M21.42 Flat foot [pes planus] (acquired ), left foot Gabbi Garrett MD 06/12/2020 M21.41 Flat foot [pes planus] (acquired ), right foot Gabbi Garrett MD 06/12/2020 M79.672 Pain in left foot Gabbi duenas MD 05/28/2020 M17.12 Unilateral primary osteoarthriti s, left knee Jeet Kelly PA-C 05/16/2020 M17.12 Unilateral primary osteoarthriti s, left knee SUSSY TaylorC 05/05/2020 M17.12 Unilateral primary osteoarthriti s, left [...] foot Gabbi Garrett MD Plan of Treatment 07/02/2020 - Juve Cedillo, PStefA.* M17.12 Unilateral primary osteoarthritis, left knee* Follow up:* after stat u/s for results with mkm Functional Status Description No Information Available Mental Status Description No Information Available Referrals Refer to Dr Reason for Referral Status Appt Date Gabbi Garrett MD EUFLEXXA PER WEB NO AUTH REQUIRED 20% COI N. LS Created [facility] [place] [address] [phone] Jeet Kelly PA-C DME NO AUTH REQUIRED ECONOMY HINGED KNEE (L1812) TO ROSA NT Created [facility] [place] [address] [phone] Gabbi Garrett MD DME [employer] PER WEB NO AUTH REQUIRED. 20% COIN. LS Created [address] [facility] [address] [place] [address] [phone] Gabbi Garrett MD DME PER B/S WEB NO AUTH REQU IRED FOR ANKLE LACE UP(L1902) AND COVERED AT 80% UNTIL THEY MEET THERE OUT OF POCKET OF $5000 TO ROSA NT Created [address] [place] [address] [phone]
--- OUTSIDE RECORDS SUMMARY | 2020-08-19 10:53 | CCD | Continuity of Care Document ---
Author Author Rosetta ACOSTA MD Organization Unknown Address [address] [place] [id number] Phone [phone] Care Team Providers Care Sewing Room Supervisor Name Role Phone Keke Sandoval AUTM Problems [...] 05/05/2020 Inject/Drain Joint/Bursa Major C ompleted 04/03/2020 90039 Apply Cast Short Leg Completed 03/26/2020 37592 X-Ray Knee Complete W/Obliques & Tunnel And/Or Standing Views Completed 03/26/2020 Inject/Drain Joint/Bursa Major C ompleted 03/04/2020 22411 X-Ray Foot Complete Completed 03/04/2020 40560 X-Ray Ankle Complete Completed 12/25/2019 44356 X-Ray Ankle Complete Completed Medical Devices Description No Information Available Encounters Type Date Location Provider Dx Diagnosis Office Visit 06/12/2020 8:00a Savanah Acosta MD [...] planus] (acqu ired), right foot Office Visit 12/25/2019 2:30p Stevensoncachorro Acosta MD M19. 072 Primary osteoarthritis, left ankle and foot M21.42 Flat foot [pes planus] (acqu ired), left foot Assessments Date Code Description Provider 06/12/2020 M21.42 Flat foot [pes planus] (acquired [...] primary osteoarthriti s, left knee SUSSY TaylorC 04/29/2020 S86.111D Strain of other musc le(s) and tendon(s) of posterior muscle group at lower leg level, right leg, subsequent encounter Gabbi Acosta MD 04/29/2020 M21.41 Flat foot [pes planus] (acquired ), right foot Gabbi Acosta MD 04/04/2020 S86.111D Strain of other musc le(s) and tendon(s) of posterior muscle group at lower leg level, right leg, subsequent encounter SUSSY UrrutiaC 04/03/2020 S86.111A Strain of other musc le(s) [...] (acquired ), right foot Gabbi Acosta MD 12/25/2019 M19.072 Primary osteoarthritis, left ank le and foot Gabbi Acosta MD 12/25/2019 M21.42 Flat foot [pes planus] (acquired ), left foot Gabbi Acosta MD Plan of Treatment 06/12/2020 - Gabbi Acosta MD* M21.42 Flat foot [...] AUTH REQUIRED 20% COI N. Created [address] [place] [address] [phone] Jeet Kelly, PAPeytonC DME NO AUTH REQUIRED ECONOMY HINGED KNEE ([id number]) TO ROSA NT Created [address] [place] [address] [phone] Gabbi Acosta MD DME [employer] PER WEB NO AUTH REQUIRED. 20% COIN. LS Created [address] [place] [address] [phone] Gabbi Acosta MD DME PER B/S WEB NO AUTH REQU IRED FOR ANKLE LACE UP([id number]) AND COVERED AT 80% UNTIL THEY MEET THERE OUT OF POCKET OF $5000 TO [facility] Created [address] [place] [address] [phone]
--- OUTSIDE RECORDS SUMMARY | 2020-08-19 10:57 | CCD ---
Author Author [facility] Organization [facility] Address Unknown Phone Unavailable Care Team Providers Care Recycling Coordinator Name Role Phone Donald Sandoval PA Unavailable Unavailable Scordo, M Keke PA Unavailable Unavailable Scordo, M Keke PA Unavailable Unavailable Scordo, M Keke PA Unavailable Unavailable Scordo, M Keke PA Unavailable Unavailable Scordo, M Keke PA Unavailable Unavailable Scordo, M Keke PA Unavailable Unavailable Scordo, M Keke PA Unavailable Unavailable Scordo, M Keke PA Unavailable Unavailable Scordo, M Keke PA Unavailable Unavailable Scordo, M Keke PA Unavailable Unavailable Scordo, M Keke PA Unavailable Unavailable Scordo, M Keke PA Unavailable Unavailable Scordo, M Keke PA Unavailable Unavailable Scordo, M Keke PA Unavailable Unavailable Scordo, M Keke PA Unavailable Unavailable Scordo, M Keke PA Unavailable Unavailable Scordo, M Keke PA Unavailable Unavailable Scordo, M Keke PA Unavailable Unavailable Scordo, M Keke PA Unavailable Unavailable Scordo, M Keke PA Unavailable Unavailable Scordo, M Keke PA Unavailable Unavailable Scordo, M Keke PA Unavailable Unavailable Scordo, M Keke PA Unavailable Unavailable Scordo, M Keke PA Unavailable Unavailable Scordo, M Keke PA Unavailable Unavailable Scordo, M Keke PA Unavailable Unavailable Scordo, M Keke PA Unavailable Unavailable Scordo, M Keke PA Unavailable Unavailable Scordo, M Keke PA Unavailable Unavailable Scordo, M Keke PA Unavailable Unavailable Scordo, M Keke PA Unavailable Unavailable Scordo, M Keke PA Unavailable Unavailable Scordo, M Keke PA Unavailable Unavailable Scordo, M Keke PA Unavailable Unavailable Scordo, M Keke PA Unavailable Unavailable Scordo, M Keke PA Unavailable Unavailable Scordo, M Keke PA Unavailable Unavailable Scordo, M Keke PA Unavailable Unavailable Scordo, M Keke PA Unavailable Unavailable Sabino ROBLES MD Unavailable Unavailable Sabino ROBLES MD Unavailable Unavailable Sabino ROBLES MD Unavailable Unavailable Sabino ROBLES MD Unavailable Unavailable Sabino ROBLES MD Unavailable Unavailable Sabino ROBELS MD Unavailable Unavailable Sabino ROBLES MD Unavailable Unavailable Sabino ROBLES MD Unavailable Unavailable Sabino ROBLES MD Unavailable Unavailable Sabino ROBLES MD Unavailable Unavailable Sabino ROBLES MD Unavailable Unavailable Sabino ROBLES MD Unavailable Unavailable Sabino ROBLES MD Unavailable Unavailable Sabino ROBLES MD Unavailable Unavailable Sabino ROBLES MD Unavailable Unavailable Sabino ROBLES MD Unavailable Unavailable Sabino ROBLES MD Unavailable Unavailable Sabino ROBLES MD Unavailable Unavailable Sabino ROBLES MD Unavailable Unavailable Sabino ROBLES MD Unavailable Unavailable Sabino ROBLES MD Unavailable Unavailable Sabino ROBLES MD Unavailable Unavailable Sabino ROBLES MD Unavailable Unavailable Sabino ROBLES MD Unavailable Unavailable Sabino ROBLES MD Unavailable Unavailable Sabino ROBLES MD Unavailable Unavailable Sabino ROBLES MD Unavailable Unavailable Sabino ROBLES MD Unavailable Unavailable Sabino ROBLES MD Unavailable Unavailable Sabino ROBLES MD Unavailable Unavailable Sabino ROBLES MD Unavailable Unavailable Sabino ROBLES MD Unavailable Unavailable Sabino ROBLES MD Unavailable Unavailable KIMBERLYSabino AL MD Unavailable Unavailable KIMBERLYSabino AL MD Unavailable Unavailable KIMBERLYSabino AL MD Unavailable Unavailable KIMBERLYSabino AL MD Unavailable Unavailable KIMBERLYSabino AL MD Unavailable Unavailable KIMBERLYSabino AL MD Unavailable Unavailable KIMBERLYSabino AL MD Unavailable Unavailable KIMBERLYSabino AL MD Unavailable Unavailable KIMBERLYSabino AL MD Unavailable Unavailable KIMBERLYSabino AL MD Unavailable Unavailable KIMBERLYSabino AL MD Unavailable Unavailable KIMBERLYSabino AL MD Unavailable Unavailable KIMBERLYSabino AL MD Unavailable Unavailable KIMBERLYSabino AL MD Unavailable Unavailable KIMBERLYSabino AL MD Unavailable Unavailable KIMBERLYSabino AL MD Unavailable Unavailable KIMBERLYSabino AL MD Unavailable Unavailable KIMBERLYSabino AL MD Unavailable Unavailable KIMBERLYSabino AL MD Unavailable Unavailable KIMBERLYSabino AL MD Unavailable Unavailable KIMBERLYSabino AL MD Unavailable Unavailable KIMBERLYSabino AL MD Unavailable Unavailable KIMBERLYSabino AL MD Unavailable Unavailable KIMBERLYSabino AL MD Unavailable Unavailable KIMBERLYSabino AL MD Unavailable Unavailable KIMBERLYSabino AL MD Unavailable Unavailable KIMBERLYSabino AL MD Unavailable Unavailable KIMBERLYSabino AL MD Unavailable Unavailable KIMBERLYSabino AL MD Unavailable Unavailable Sabino ROBLES MD Unavailable Unavailable Sabino ROBLES MD Unavailable Unavailable Sabino ROBLES MD Unavailable Unavailable Sabino ROBLES MD Unavailable Unavailable Sabino ROBLES MD Unavailable Unavailable KIMBERLYSabino AL MD Unavailable Unavailable Sabino ROBLES MD Unavailable Unavailable Sabino ROBLES MD Unavailable Unavailable Sabino ROBLES MD Unavailable Unavailable Sabino ROBLES MD Unavailable Unavailable Sabino ROBLES MD Unavailable Unavailable Sabino ROBLES MD Unavailable Unavailable KIMBERLYSabino AL MD Unavailable Unavailable KIMBERLYSabino AL MD Unavailable Unavailable Sabino ROBLES MD Unavailable Unavailable Sabino ROBLES MD Unavailable Unavailable Sabino ROBLES MD Unavailable Unavailable Sabino ROBLES MD Unavailable Unavailable Sabino ROBLES MD Unavailable Unavailable Sabino ROBLES MD Unavailable Unavailable Sabino ROBLES MD Unavailable Unavailable Sabino ROBLES MD Unavailable Unavailable Sabino ROBLES MD Unavailable Unavailable Sabino ROBLES MD Unavailable Unavailable Sabino ROBLES MD Unavailable Unavailable Sabino ROBLES MD Unavailable Unavailable Sabino ROBLES MD Unavailable Unavailable Sabino ROBLES MD Unavailable Unavailable Sabino ROBLES MD Unavailable Unavailable Sabino ROBLES MD Unavailable Unavailable Sabino ROBLES MD Unavailable Unavailable Sabino ROBLES MD Unavailable Unavailable Sabino ROBLES MD Unavailable Unavailable Sabino ROBLES MD Unavailable Unavailable Sabino ROBLES MD Unavailable Unavailable Sabino ROBLES MD Unavailable Unavailable Sabino ROBLES MD Unavailable Unavailable Sabino ROBLES MD Unavailable Unavailable Sabino ROBLES MD Unavailable Unavailable Sabino ROBLES MD Unavailable Unavailable Sabino ROBLES MD Unavailable Unavailable Sabino ROBLES MD Unavailable Unavailable Sabino ROBLES MD Unavailable Unavailable Sabino ROBLES MD Unavailable Unavailable Sabino ROBLES MD Unavailable Unavailable Sabino ROBLES MD Unavailable Unavailable Sabino ROBLES MD Unavailable Unavailable Sabino ROBLES MD Unavailable Unavailable Sabino ROBLES MD Unavailable Unavailable Kelly, M Barratt PA Unavailable Unavailable Kelly, M Barratt PA Unavailable Unavailable Kelly, M Barratt PA Unavailable Unavailable Kelly, M Barratt PA Unavailable Unavailable Kelly, M Barratt PA Unavailable Unavailable Kelly, M Barratt PA Unavailable Unavailable Kelly, M Barratt PA Unavailable Unavailable Kelly, M Barratt PA Unavailable Unavailable Kelly, M Barratt PA Unavailable Unavailable Kelly, M Barratt PA Unavailable Unavailable Kelly, M Barratt PA Unavailable Unavailable Kelly, M Barratt PA Unavailable Unavailable Kelly, M Barratt PA Unavailable Unavailable Kelly, M Barratt PA Unavailable Unavailable Kelly, M Barratt PA Unavailable Unavailable Kelly, M Barratt PA Unavailable Unavailable Kelly, M Barratt PA Unavailable Unavailable Kelly, M Barratt PA Unavailable Unavailable Kelly, M Barratt PA Unavailable Unavailable Kelly, M Barratt PA Unavailable Unavailable Kelly, M Barratt PA Unavailable Unavailable Kelly, M Barratt PA Unavailable Unavailable Kelly, M Barratt PA Unavailable Unavailable Kelly, M Barratt PA Unavailable Unavailable Kelly, M Barratt PA Unavailable Unavailable Kelly, M Barratt PA Unavailable Unavailable Kelly, M Barratt PA Unavailable Unavailable JONATAN KERR MD Unavailable Unavailable JONATAN KERR MD Unavailable Unavailable JONATAN KERR MD Unavailable Unavailable JONATAN KERR MD Unavailable Unavailable JONATAN KERR MD Unavailable Unavailable JONATAN KERR MD Unavailable Unavailable JONATAN KERR MD Unavailable Unavailable JONATAN KERR MD Unavailable Unavailable JONATAN KERR MD Unavailable Unavailable JONATAN KERR MD Unavailable Unavailable JONATAN KERR MD Unavailable Unavailable JONATAN KERR MD Unavailable Unavailable JONATAN KERR MD Unavailable Unavailable CHRJONATAN SERNA MD Unavailable Unavailable JONATAN KERR MD Unavailable Unavailable JONATAN KERR MD Unavailable Unavailable JONATAN KERR MD Unavailable Unavailable JONATAN KERR MD Unavailable Unavailable JONATAN KERR MD Unavailable Unavailable CHRJONATAN SERNA MD Unavailable Unavailable JONATAN KERR MD Unavailable Unavailable JONATAN KERR MD Unavailable Unavailable JONATAN KERR MD Unavailable Unavailable CHRJONATAN SENRA MD Unavailable Unavailable JONATAN KERR MD Unavailable Unavailable JONATAN KERR MD Unavailable Unavailable JONATAN KERR MD Unavailable Unavailable JONATAN KERR MD Unavailable Unavailable JONATAN KERR MD Unavailable Unavailable JONATAN KERR MD Unavailable Unavailable JONATAN KERR MD Unavailable Unavailable JONATAN KERR MD Unavailable Unavailable JONATAN KERR MD Unavailable Unavailable JONATAN KERR MD Unavailable Unavailable JONATAN KERR MD Unavailable Unavailable JONATAN KERR MD Unavailable Unavailable JONATAN KERR MD Unavailable Unavailable JONATAN KERR MD Unavailable Unavailable JONATAN KERR MD Unavailable Unavailable JONATAN KERR MD Unavailable Unavailable AlessandraBenjamin pepe MD Unavailable Unavailable Alessandra, [id number] MD Benjamin ALARCON Unavailable Alessandra, [id number] MD Benjamin ALARCON Unavailable Alessandra, [id number] MD Benjamin ALARCON Unavailable Alessandra, [id number] MD Benjamin ALARCON Unavailable Alessandra, [id number] MD Benjamin ALARCON Unavailable Alessandra, [id number] MD Benjamin ALARCON Unavailable Alessandra, [id number] MD Benjamin ALARCON Unavailable Alessandra, [id number] MD Benjamin ALARCON Unavailable Alessandra, [id number] MD Benjamin ALARCON Unavailable Alessandra, [id number] MD Benjamin MD Unavailable Alessandra, [id number] MD Benjamin MD Unavailable Alessandra, [id number] MD Benjamin MD Unavailable Alessandra, [id number] MD Benjamin MD Unavailable Alessandra, [id number] MD Benjamin MD Unavailable Alessandra, [id number] MD Benjamin MD Unavailable Alessandra, [id number] MD Benjamin MD Unavailable Alessandra, [id number] MD Benjamin MD Unavailable Alessandra, [id number] MD Benjamin MD Unavailable Alessandra, [id number] MD Benjamin MD Unavailable Alessandra, [id number] MD Benjamin MD Unavailable Alessandra, [id number] MD Benjamin MD Unavailable Alessandra, [id number] MD Benjamin MD Unavailable Alessandra, [id number] MD Benjamin MD Unavailable Alessandra, [id number] MD Benjamin MD Unavailable Alessandra, [id number] MD Benjamin MD Unavailable Alessandra, [id number] MD Benjamin MD Unavailable Alessandra, [id number] MD Benjamin MD Unavailable Alessandra, [id number] MD Benjamin MD Unavailable Alessandra, [id number] MD Benjamin MD Unavailable Alessandra, [id number] MD Benjamin MD Unavailable Alessandra, [id number] MD Benjamin MD Unavailable ANASTASIA, JOHANA MD Unavailable Unavailable ANASTASIA, JOHANA MD Unavailable Unavailable ANASTASIA, JOHANA MD Unavailable Unavailable ANASTASIA, JOHANA MD Unavailable Unavailable ANASTASIA, JOHANA MD Unavailable Unavailable ANASTASIA, JOHANA MD Unavailable Unavailable ANASTASIA, JOHANA MD Unavailable Unavailable ANASTASIA, JOHANA MD Unavailable Unavailable ANASTASIA, JOHANA MD Unavailable Unavailable ANASTASIA, JOHANA MD Unavailable Unavailable ANASTASIA, JOHANA MD Unavailable Unavailable ANASTASIA, JOHANA MD Unavailable Unavailable ANASTASIA, JOHANA MD Unavailable Unavailable ANASTASIA, JOHANA MD Unavailable Unavailable ANASTASIA, JOHANA MD Unavailable Unavailable ANASTASIA, JOHANA MD Unavailable Unavailable ANASTASIA, JOHANA MD Unavailable Unavailable ANASTASIA, JOHANA MD Unavailable Unavailable ANASTASIA, JOHANA MD Unavailable Unavailable ANASTASIA, JOHANA MD Unavailable Unavailable ANASTASIA, JOHANA MD Unavailable Unavailable ANASTASIA, JOHANA MD Unavailable Unavailable ANASTASIA, JOHANA MD Unavailable Unavailable ANASTASIA, JOHANA MD Unavailable Unavailable ANASTASIA, JOHANA MD Unavailable Unavailable ANASTASIA, JOHANA MD Unavailable Unavailable ANASTASIA, JOHANA MD Unavailable Unavailable ANASTASIA, JOHANA MD Unavailable Unavailable ANASTASIA, JOHANA MD Unavailable Unavailable ANASTASIA, JOHANA MD Unavailable Unavailable ANASTASIA, JOHANA MD Unavailable Unavailable ANASTASIA, JOHANA MD Unavailable Unavailable ANASTASIA, JOHANA MD Unavailable Unavailable ANASTASIA, JOHANA MD Unavailable Unavailable ANASTASIA, JOHANA MD Unavailable Unavailable ANASTASIA, JOHANA MD Unavailable Unavailable ANASTASIA, JOHANA MD Unavailable Unavailable ANASTASIA, JOHANA MD Unavailable Unavailable ANASTASIA, JOHANA MD Unavailable Unavailable ANASTASIA, JOHANA MD Unavailable Unavailable JONATAN KERR MD Unavailable Unavailable JONATAN KERR MD Unavailable Unavailable JONATAN KERR MD Unavailable Unavailable JONATAN KERR MD Unavailable Unavailable JONATAN KERR MD Unavailable Unavailable JONATAN KERR MD Unavailable Unavailable JONATAN KERR MD Unavailable Unavailable JONATAN KERR MD Unavailable Unavailable JONATAN KERR MD Unavailable Unavailable JONATAN KERR MD Unavailable Unavailable JONATAN KERR MD Unavailable Unavailable JONATAN KERR MD Unavailable Unavailable JONATAN KERR MD Unavailable Unavailable JONATAN KERR MD Unavailable Unavailable JONATAN KERR MD Unavailable Unavailable JONATAN KERR MD Unavailable Unavailable JONATAN KERR MD Unavailable Unavailable CHROSTOWSKIJONATAN MD Unavailable Unavailable CHROSTOWSKIJONATAN MD Unavailable Unavailable CHROSTOWSKIJONATAN MD Unavailable Unavailable CHROSTOWSKIJONATAN MD Unavailable Unavailable CHROSTOWSKIJONATAN MD Unavailable Unavailable CHROSTOWSKIJONATAN MD Unavailable Unavailable CHROSTOWSKIJONATAN MD Unavailable Unavailable CHROSTOWSKIJONATAN MD Unavailable Unavailable CHROSTOWSKIJAEJONATAN MD Unavailable Unavailable CHROSTOWSKIJONATAN MD Unavailable Unavailable CHROSTOWSKIJONATAN MD Unavailable Unavailable CHROSTOWSKIJONATAN MD Unavailable Unavailable CHROSTOWSKIJONATAN MD Unavailable Unavailable CHROSTOWSKIJONATAN MD Unavailable Unavailable CHROSTOWSKIJONATAN MD Unavailable Unavailable CHROSTOWSKIJONATAN MD Unavailable Unavailable CHROSTOWSKIJONATAN MD Unavailable Unavailable CHROSTOWSKIJONATAN MD Unavailable Unavailable CHROSTOWSKIJONATAN MD Unavailable Unavailable CHROSTOWSKIJONATAN MD Unavailable Unavailable CHROSTOWSKIJONATAN MD Unavailable Unavailable CHROSTOWSKIJONATAN MD Unavailable Unavailable CHROSTOWSKIJONATAN MD Unavailable Unavailable KIP MCDANIEL MD Unavailable Unavailable KIP MCDANIEL MD Unavailable Unavailable KIP MCDANIEL MD Unavailable Unavailable KIP MCDANIEL MD Unavailable Unavailable KIP MCDANIEL MD Unavailable Unavailable KIP MCDANIEL MD Unavailable Unavailable KIP MCDANIEL MD Unavailable Unavailable KIP MCDANIEL MD Unavailable Unavailable KIP MCDANIEL MD Unavailable Unavailable KIP MCDANIEL MD Unavailable Unavailable KIP MCDANIEL MD Unavailable Unavailable KIP MCDANIEL MD Unavailable Unavailable KIP MCDANIEL MD Unavailable Unavailable CANAIRALLKIP RICH MD Unavailable Unavailable KHAIRALLKIP RICH MD Unavailable Unavailable KIP MCDANIEL MD Unavailable Unavailable KIP MCDANIEL MD Unavailable Unavailable KIP MCDANIEL MD Unavailable Unavailable KIP MCDANIEL MD Unavailable Unavailable KIP MCDANIEL MD Unavailable Unavailable KHAIRKIP ZHOU MD Unavailable Unavailable KHAIRKIP ZHOU MD Unavailable Unavailable KHAIRKIP ZHOU MD Unavailable Unavailable CANAIRKIP ZHOU MD Unavailable Unavailable KIP MCDANIEL MD Unavailable Unavailable KIP MCDANIEL MD Unavailable Unavailable KHAIRALLAH, RAMZI MD Unavailable Unavailable KHAIRALLAH, RAMZI MD Unavailable Unavailable KHAIRALLAH, RAMZI MD Unavailable Unavailable KHAIRALLAH, RAMZI MD Unavailable Unavailable KHAIRALLAH, RAMZI MD Unavailable Unavailable KHAIRALLAH, RAMZI MD Unavailable Unavailable KHAIRALLAH, RAMZI MD Unavailable Unavailable KHAIRALLAH, RAMZI MD Unavailable Unavailable KHAIRALLAH, RAMZI MD Unavailable Unavailable KHAIRALLAH, RAMZI MD Unavailable Unavailable KHAIRALLAH, RAMZI MD Unavailable Unavailable KHAIRALLAH, RAMZI MD Unavailable Unavailable KHAIRALLAH, RAMZI MD Unavailable Unavailable KHAIRALLAH, RAMZI MD Unavailable Unavailable KHAIRALLAH, RAMZI MD Unavailable Unavailable KHAIRALLAH, RAMZI MD Unavailable Unavailable KHAIRALLAH, RAMZI MD Unavailable Unavailable KHAIRALLAH, RAMZI MD Unavailable Unavailable KHAIRALLAH, RAMZI MD Unavailable Unavailable KHAIRALLAH, RAMZI MD Unavailable Unavailable KHAIRALLAH, RAMZI MD Unavailable Unavailable KHAIRALLAH, RAMZI MD Unavailable Unavailable KHAIRALLAH, RAMZI MD Unavailable Unavailable KHAIRALLAH, RAMZI MD Unavailable Unavailable KHAIRALLAH, RAMZI MD Unavailable Unavailable KHAIRALLAH, RAMZI MD Unavailable Unavailable KHAIRALLAH, RAMZI MD Unavailable Unavailable KHAIRALLAH, RAMZI MD Unavailable Unavailable KHAIRALLAH, RAMZI MD Unavailable Unavailable KHAIRALLAH, RAMZI MD Unavailable Unavailable KHAIRALLAH, RAMZI MD Unavailable Unavailable KHAIRALLAH, RAMZI MD Unavailable Unavailable KHAIRALLAH, RAMZI MD Unavailable Unavailable KHAIRALLAH, RAMZI MD Unavailable Unavailable KHAIRALLAH, RAMZI MD Unavailable Unavailable KHAIRALLAH, RAMZI MD Unavailable Unavailable KHAIRALLAH, RAMZI MD Unavailable Unavailable KHAIRALLAH, RAMZI MD Unavailable Unavailable KHAIRALLAH, RAMZI MD Unavailable Unavailable KHAIRALLAH, RAMZI MD Unavailable Unavailable KHAIRALLAH, RAMZI MD Unavailable Unavailable KHAIRALLAH, RAMZI MD Unavailable Unavailable KHAIRALLAH, RAMZI MD Unavailable Unavailable KHAIRALLAH, RAMZI MD Unavailable Unavailable KHAIRALLAH, RAMZI MD Unavailable Unavailable KHAIRALLAH, RAMZI MD Unavailable Unavailable KHAIRALLAH, RAMZI MD Unavailable Unavailable KHAIRALLAH, RAMZI MD Unavailable Unavailable KHAIRALLAH, RAMZI MD Unavailable Unavailable KHAIRALLAH, RAMZI MD Unavailable Unavailable KHAIRALLAH, RAMZI MD Unavailable Unavailable KHAIRALLAH, RAMZI MD Unavailable Unavailable KIP MCDANIEL MD Unavailable Unavailable KIP MCDANIEL MD Unavailable Unavailable KIP MCDANIEL MD Unavailable Unavailable KIP MCDANIEL MD Unavailable Unavailable KIP MCDANIEL MD Unavailable Unavailable KIP MCDANIEL MD Unavailable Unavailable KIP MCDANIEL MD Unavailable Unavailable Volcko, M Celeste FIELD COIL WINDER Unavailable Unavailable Volcko, M Celeste FIELD COIL WINDER Unavailable Unavailable Volcko, M Celeste FIELD COIL WINDER Unavailable Unavailable Volcko, M Celeste FIELD COIL WINDER Unavailable Unavailable Volcko, M Celeste FIELD COIL WINDER Unavailable Unavailable Volcko, M Celeste FIELD COIL WINDER Unavailable Unavailable Volcko, M Celeste FIELD COIL WINDER Unavailable Unavailable Volcko, M Celeste FIELD COIL WINDER Unavailable Unavailable Volcko, M Celeste FIELD COIL WINDER Unavailable Unavailable Volcko, M Celeste FIELD COIL WINDER Unavailable Unavailable Volcko, M Celeste FIELD COIL WINDER Unavailable Unavailable Volcko, M Celeste FIELD COIL WINDER Unavailable Unavailable Volcko, M Celeste FIELD COIL WINDER Unavailable Unavailable Volcko, M Celeste FIELD COIL WINDER Unavailable Unavailable Volcko, M Celeste FIELD COIL WINDER Unavailable Unavailable Volcko, M Celeste FIELD COIL WINDER Unavailable Unavailable Volcko, M Celeste FIELD COIL WINDER Unavailable Unavailable Volcko, M Celeste FIELD COIL WINDER Unavailable Unavailable Volcko, M Celeste FIELD COIL WINDER Unavailable Unavailable Volcko, M Celeste FIELD COIL WINDER Unavailable Unavailable Volcko, M Celeste FIELD COIL WINDER Unavailable Unavailable Volcko, M Celeste FIELD COIL WINDER Unavailable Unavailable Volcko, M Celeste FIELD COIL WINDER Unavailable Unavailable Volcko, M Celeste FIELD COIL WINDER Unavailable Unavailable Volcko, M Celeste FIELD COIL WINDER Unavailable Unavailable Volcko, M Celeste FIELD COIL WINDER Unavailable Unavailable Volcko, M Celeste FIELD COIL WINDER Unavailable Unavailable Volcko, M Celeste FIELD COIL WINDER Unavailable Unavailable Volcko, M Celeste FIELD COIL WINDER Unavailable Unavailable Volcko, M Celeste FIELD COIL WINDER Unavailable Unavailable Volcko, M Celeste FIELD COIL WINDER Unavailable Unavailable Volcko, M Celeste FIELD COIL WINDER Unavailable Unavailable Volcko, M Celeste FIELD COIL WINDER Unavailable Unavailable Volcko, M Celeste FIELD COIL WINDER Unavailable Unavailable Volcko, M Celeste FIELD COIL WINDER Unavailable Unavailable Volcko, M Celeste FIELD COIL WINDER Unavailable Unavailable Volcko, M Celeste FIELD COIL WINDER Unavailable Unavailable Sabino Baron Unavailable Unavailable Delfino, D Maximo PA Unavailable Unavailable Delfino, D Maximo PA Unavailable Unavailable Delfino, D Maximo PA Unavailable Unavailable Delfino, D Maximo PA Unavailable Unavailable Delfino, D Maximo PA Unavailable Unavailable Delfino, D Maximo PA Unavailable Unavailable Delfino, D Maximo PA Unavailable Unavailable Delfino, D Maximo PA Unavailable Unavailable Delfino, D Maximo PA Unavailable Unavailable Delfino, D Maximo PA Unavailable Unavailable Delfino, D Maximo PA Unavailable Unavailable Delfino, D Maximo PA Unavailable Unavailable Delfino, D Maximo PA Unavailable Unavailable Delfino, D Maximo PA Unavailable Unavailable Delfino, D Maximo PA Unavailable Unavailable Delfino, D Maximo PA Unavailable Unavailable Delfino, D Maximo PA Unavailable Unavailable Delfino, D Maximo PA Unavailable Unavailable Delfino, D Maximo PA Unavailable Unavailable Delfino, D Maximo PA Unavailable Unavailable Delfino, D Maximo PA Unavailable Unavailable Delfino, D Maximo PA Unavailable Unavailable Delfino, D Maximo PA Unavailable Unavailable Delfino, D Maximo PA Unavailable Unavailable Delfino, D Maximo PA Unavailable Unavailable Delfino, D Maximo PA Unavailable Unavailable Delfino, D Maximo PA Unavailable Unavailable Delfino, D Maximo PA Unavailable Unavailable Delfino, D Maximo PA Unavailable Unavailable Delfino, D Maximo PA Unavailable Unavailable Delfino, D Maximo PA Unavailable Unavailable Delfino, D Maximo PA Unavailable Unavailable Delfino, D Maximo PA Unavailable Unavailable Delfino, D Maximo PA Unavailable Unavailable Delfino, D Maximo PA Unavailable Unavailable Delfino, D Maximo PA Unavailable Unavailable Delfino, D Maximo PA Unavailable Unavailable Delfino, D Maximo PA Unavailable Unavailable Delfino, D Maximo PA Unavailable Unavailable Delfino, D Maximo PA Unavailable Unavailable Delfino, D Maximo PA Unavailable Unavailable Delfino, D Maximo PA Unavailable Unavailable Delfino, D Maximo PA Unavailable Unavailable Delfino, D Maximo PA Unavailable Unavailable Delfino, D Maximo PA Unavailable Unavailable Delfino, D Maximo PA Unavailable Unavailable Delfino, D Maximo PA Unavailable Unavailable Delfino, D Maximo PA Unavailable Unavailable Delfino, D Maximo PA Unavailable Unavailable Delfino, D Maximo PA Unavailable Unavailable Delfino, D Maximo PA Unavailable Unavailable Delfino, D Maximo PA Unavailable Unavailable Delfino, D Maximo PA Unavailable Unavailable Delfino, D Maximo PA Unavailable Unavailable Delfino, D Maximo PA Unavailable Unavailable Delfino, D Maximo PA Unavailable Unavailable Delfino, Sabino HERNANDEZ Unavailable Unavailable DelfinoSabino Unavailable Unavailable DelfinoSabino Unavailable Unavailable Delfino, Sabino HERNANDEZ Unavailable Unavailable Delfino, Sabino HERNANDEZ Unavailable Unavailable Delfino, Sabino HERNANDEZ Unavailable Unavailable Fish, [facility], PA-C Unavailable Unavailabl e Fish, [facility], PA-C Unavailable Unavailabl e Fish, [facility], PA-C Unavailable Unavailabl e Fish, [facility], PA-C Unavailable Unavailabl e Fish, [facility], PA-C Unavailable Unavailabl e Fish, [facility], PA-C Unavailable Unavailabl e Fish, [facility], PA-C Unavailable Unavailabl e Fish, [facility], PA-C Unavailable Unavailabl e Fish, [facility], PA-C Unavailable Unavailabl e Fish, [facility], PA-C Unavailable Unavailabl e Fish, [facility], PA-C Unavailable Unavailabl e Fish, [facility], PA-C Unavailable Unavailabl e Fish, [facility], PA-C Unavailable Unavailabl e Fish, [facility], PA-C Unavailable Unavailabl e Fish, [facility], PA-C Unavailable Unavailabl e Fish, [facility], PA-C Unavailable Unavailabl e Fish, [facility], PA-C Unavailable Unavailabl e Fish, [facility], PA-C Unavailable Unavailabl e Fish, [facility], PA-C Unavailable Unavailabl e Fish, [facility], PA-C Unavailable Unavailabl e Fish, [facility], PA-C Unavailable Unavailabl e Fish, [facility], PA-C Unavailable Unavailabl e Fish, [facility], PA-C Unavailable Unavailabl e Fish, [facility], PA-C Unavailable Unavailabl e Fish, [facility], PA-C Unavailable Unavailabl e Fish, [facility], PA-C Unavailable Unavailabl e Fish, [facility], PA-C Unavailable Unavailabl e Fish, [facility], PA-C Unavailable Unavailabl e Fish, [facility], PA-C Unavailable Unavailabl e Fish, [facility], PA-C Unavailable Unavailabl e Fish, [facility], PA-C Unavailable Unavailabl e Fish, [facility], PA-C Unavailable Unavailabl e Fish, [facility], PA-C Unavailable Unavailabl e Rosalia Bocanegra Unavailable Rosalia Bocanegra Unavailable TURRIN, SNEHA Unavailable Unavailable TURRIN, SNEHA Unavailable Unavailable TURRIN, SNEHA Unavailable Unavailable TURRIN, SNEHA Unavailable Unavailable [facility], SSCORDO SCORDO PA KEKE Unavailable Unavaila ble GILSON, MANISHA MD Unavailable Unavailable GILSON, MANISHA MD Unavailable Unavailable GILSON, MANISHA MD Unavailable Unavailable GILSON, MANISHA MD Unavailable Unavailable GILSON, MANISHA MD Unavailable Unavailable GILSON, MANISHA MD Unavailable Unavailable GILSON, MANISHA MD Unavailable Unavailable GILSON, MANISHA MD Unavailable Unavailable GILSON, MANISHA MD Unavailable Unavailable GILSON, MANISHA MD Unavailable Unavailable GILSON, MANISHA MD Unavailable Unavailable GILSON, MANISHA MD Unavailable Unavailable GILSON, MANISHA MD Unavailable Unavailable GILSON, MANISHA MD Unavailable Unavailable GILSON, MANISHA MD Unavailable Unavailable GILSON, MANISHA MD Unavailable Unavailable GILSON, MANISHA MD Unavailable Unavailable GILSON, MANISHA MD Unavailable Unavailable GILSON, MANISHA MD Unavailable Unavailable GILSON, MANISHA MD Unavailable Unavailable GILSON, MANISHA MD Unavailable Unavailable GILSON, MANISHA MD Unavailable Unavailable GILSON, MANISHA MD Unavailable Unavailable GILSON, MANISHA MD Unavailable Unavailable GILSON, MANISHA MD Unavailable Unavailable GILSON, MANISHA MD Unavailable Unavailable GILSON, MANISHA MD Unavailable Unavailable GILSON, MANISHA MD Unavailable Unavailable GILSON, MANISHA MD Unavailable Unavailable GILSON, MANISHA MD Unavailable Unavailable GILSON, MANISHA MD Unavailable Unavailable GILSON, MANISHA MD Unavailable Unavailable GILSON, MANISHA MD Unavailable Unavailable GILSON, MANISHA MD Unavailable Unavailable MANISHA RIGGINS MD Unavailable Unavailable MANISHA RIGGINS MD Unavailable Unavailable MANISHA RIGGINS MD Unavailable Unavailable MANISHA RIGGINS MD Unavailable Unavailable MANISHA RIGGINS MD Unavailable Unavailable MANISHA RIGGINS MD Unavailable Unavailable MANISHA RIGGINS MD Unavailable Unavailable MANISHA RIGGINS MD Unavailable Unavailable Verbeck Jr, Genaro Darrel PA Unavailable Unavailable Verbeck Jr, Sunshine Darrel PA Unavailable Unavailable Verbeck Jr, Sunshine Darrel PA Unavailable Unavailable Verbeck Jr, Genaro Darrel PA Unavailable Unavailable Verbeck Jr, Sunshine Darrel PA Unavailable Unavailable Verbeck Jr, Genaro Darrel PA Unavailable Unavailable Verbeck Jr, Sunshine Darrel PA Unavailable Unavailable Verbeck Jr, Genaro Darrel PA Unavailable Unavailable Verbeck Jr, Sunshine Darrel PA Unavailable Unavailable Verbeck Jr, Genaro Darrel PA Unavailable Unavailable Verbeck Jr, Sunshine Darrel PA Unavailable Unavailable Verbeck Jr, Sunshine Darrel PA Unavailable Unavailable Verbeck Jr, Genaro Darrel PA Unavailable Unavailable Verbeck Jr, Genaro Darrel PA Unavailable Unavailable Verbeck Jr, Sunshine Darrel PA Unavailable Unavailable Verbeck Jr, Genaro Darrel PA Unavailable Unavailable Verbeck Jr, Sunshine Darrel PA Unavailable Unavailable Verbeck Jr, Genaro Darrel PA Unavailable Unavailable Verbeck Jr, Sunshine Darrel PA Unavailable Unavailable Verbeck Jr, Sunshine Darrel PA Unavailable Unavailable Verbeck Jr, Sunshine Darrel PA Unavailable Unavailable Verbeck Jr, Sunshine Darrel PA Unavailable Unavailable Verbeck Jr, Sunshine Darrel PA Unavailable Unavailable Verbeck Jr, Sunshine Darrel PA Unavailable Unavailable Verbeck Jr, Sunshine Darrel PA Unavailable Unavailable Verbeck Jr, Sunshine Darrel PA Unavailable Unavailable Verbeck Jr, Sunshine Darrel PA Unavailable Unavailable Verbeck Jr, Sunshine Darrel PA Unavailable Unavailable Verbeck Jr, Sunshine Darrel PA Unavailable Unavailable Verbeck Jr, Genaro Darrel PA Unavailable Unavailable Verbeck Jr, Sunshine Darrel PA Unavailable Unavailable Verbeck Jr, Sunshine Darrel PA Unavailable Unavailable Verbeck Jr, Genaro Darrel PA Unavailable Unavailable Verbeck Jr, Sunshine Darrel PA Unavailable Unavailable Verbeck Jr, Genaro Darrel PA Unavailable Unavailable Verbeck Jr, Sunshine Darrel PA Unavailable Unavailable Sabino Baron PA Unavailable Unavailable Delfino, D Maximo PA Unavailable Unavailable Delfino, D Maximo PA Unavailable Unavailable Delfino, D Maximo PA Unavailable Unavailable Delfino, D Maximo PA Unavailable Unavailable Delfino, D Maximo PA Unavailable Unavailable Delfino, D Maximo PA Unavailable Unavailable Delfino, D Maximo PA Unavailable Unavailable Delfino, D Maximo PA Unavailable Unavailable Delfino, D Maximo PA Unavailable Unavailable Delfino, D Maximo PA Unavailable Unavailable Delfino, D Maximo PA Unavailable Unavailable Delfino, D Maximo PA Unavailable Unavailable Delfino, D Maximo PA Unavailable Unavailable Delfino, D Maximo PA Unavailable Unavailable Delfino, D Maximo PA Unavailable Unavailable Delfino, D Maximo PA Unavailable Unavailable Delfino, D Maximo PA Unavailable Unavailable Delfino, D Maximo PA Unavailable Unavailable Delfino, D Maximo PA Unavailable Unavailable Delfino, D Maximo PA Unavailable Unavailable Delfino, D Maximo PA Unavailable Unavailable Delfino, D Maximo PA Unavailable Unavailable Delfino, D Maximo PA Unavailable Unavailable Delfino, D Maximo PA Unavailable Unavailable Delfino, D Maximo PA Unavailable Unavailable Delfino, D Maximo PA Unavailable Unavailable Delfino, D Maximo PA Unavailable Unavailable Delfino, D Maximo PA Unavailable Unavailable Delfino, D Maximo PA Unavailable Unavailable Delfino, D Maximo PA Unavailable Unavailable Delfino, D Maximo PA Unavailable Unavailable Delfino, D Maximo PA Unavailable Unavailable Delfino, D Maximo PA Unavailable Unavailable Delfino, D Maximo PA Unavailable Unavailable Delfino, D Maximo PA Unavailable Unavailable Delfino, D Maximo PA Unavailable Unavailable Delfino, D Maximo PA Unavailable Unavailable Delfino, D Maximo PA Unavailable Unavailable Delfino, D Maximo PA Unavailable Unavailable Delfino, D Maximo PA Unavailable Unavailable Delfino, D Maximo PA Unavailable Unavailable Delfino, D Maximo PA Unavailable Unavailable Delfino, D Maximo PA Unavailable Unavailable Delfino, D Maximo PA Unavailable Unavailable Delfino, D Maximo PA Unavailable Unavailable Delfino, D Maximo PA Unavailable Unavailable Delfino, D Maximo PA Unavailable Unavailable Delfino, D Maximo PA Unavailable Unavailable Delfino, D Maximo PA Unavailable Unavailable Delfino, D Maximo PA Unavailable Unavailable Delfino, D Maximo PA Unavailable Unavailable Delfino, D Maximo PA Unavailable Unavailable Delfino, D Maximo PA Unavailable Unavailable Delfino, D Maximo PA Unavailable Unavailable Delfino, D Maximo PA Unavailable Unavailable Delfino, D Maximo PA Unavailable Unavailable Delfino, D Maximo PA Unavailable Unavailable Delfino, D Maximo PA Unavailable Unavailable Delfino, D Maximo PA Unavailable Unavailable Delfino, D Maximo PA Unavailable Unavailable Delfino, D Maximo PA Unavailable Unavailable Delfino, D Maximo PA Unavailable Unavailable MCELHERAN, MAXIMO PA Unavailable Unavailable MCELHERAN, MAXIMO PA Unavailable Unavailable MCELHERAN, MAXIMO PA Unavailable Unavailable MCELHERAN, MAXIMO PA Unavailable Unavailable MCELHERAN, MAXIMO PA Unavailable Unavailable MCELHERAN, MAXIMO PA Unavailable Unavailable MCELHERAN, MAXIMO PA Unavailable Unavailable MCELHERAN, MAXIMO PA Unavailable Unavailable MCELHERAN, MAXIMO PA Unavailable Unavailable MCELHERAN, MAXIMO PA Unavailable Unavailable MCELHERAN, MAXIMO PA Unavailable Unavailable MCELHERAN, MAXIMO PA Unavailable Unavailable MCELHERAN, MAXIMO PA Unavailable Unavailable MCELHERAN, MAXIMO PA Unavailable Unavailable MCELHERAN, MAXIMO PA Unavailable Unavailable MCELHERAN, MAXIMO PA Unavailable Unavailable MCELHERAN, MAXIMO PA Unavailable Unavailable MCELHERAN, MAXIMO PA Unavailable Unavailable MCELHERAN, MAXIMO PA Unavailable Unavailable MCELHERAN, MAXIMO PA Unavailable Unavailable MCELHERAN, MAXIMO PA Unavailable Unavailable MCELHERAN, MAXIMO PA Unavailable Unavailable MCELHERAN, MAXIMO PA Unavailable Unavailable MCELHERAN, MAXIMO PA Unavailable Unavailable MCELHERAN, MAXIMO PA Unavailable Unavailable MCELHERAN, MAXIMO PA Unavailable Unavailable MCELHERAN, MAXIMO PA Unavailable Unavailable MCELHERAN, MAXIMO PA Unavailable Unavailable ALESSANDRA, BENJAMIN Unavailable Unavailable Delfino, D Maximo PA Unavailable Unavailable Delfino, D Maximo PA Unavailable Unavailable Delfino, D Maximo PA Unavailable Unavailable Delfino, D Maximo PA Unavailable Unavailable Delfino, D Maximo PA Unavailable Unavailable Delfino, D Maximo PA Unavailable Unavailable Delfino, D Maximo PA Unavailable Unavailable Delfino, D Maximo PA Unavailable Unavailable Delfino, D Maximo PA Unavailable Unavailable Delfino, D Maximo PA Unavailable Unavailable Delfino, D Maximo PA Unavailable Unavailable Delfino, D Maximo PA Unavailable Unavailable Delfino, D Maximo PA Unavailable Unavailable Delfino, D Maximo PA Unavailable Unavailable Delfino, D Maximo PA Unavailable Unavailable Delfino, D Maximo PA Unavailable Unavailable Delfino, D Maximo PA Unavailable Unavailable Delfino, D Maximo PA Unavailable Unavailable Delfino, D Maximo PA Unavailable Unavailable Delfino, D Maximo PA Unavailable Unavailable Delfino, D Maximo PA Unavailable Unavailable Delfino, D Maximo PA Unavailable Unavailable Delfino, D Maximo PA Unavailable Unavailable Delfino, D Maximo PA Unavailable Unavailable Delfino, D Maximo PA Unavailable Unavailable Delfino, D Maximo PA Unavailable Unavailable Delfino, D Maximo PA Unavailable Unavailable Delfino, D Maximo PA Unavailable Unavailable Delfino, D Maximo PA Unavailable Unavailable Delfino, D Maximo PA Unavailable Unavailable Delfino, D Maximo PA Unavailable Unavailable Delfino, D Maximo PA Unavailable Unavailable Delfino, D Maximo PA Unavailable Unavailable Delfino, D Maximo PA Unavailable Unavailable Delfino, D Maximo PA Unavailable Unavailable Delfino, D Maximo PA Unavailable Unavailable Delfino, D Maximo PA Unavailable Unavailable Delfino, D Maximo PA Unavailable Unavailable Delfino, D Maximo PA Unavailable Unavailable Delfino, D Maximo PA Unavailable Unavailable Delfino, D Maximo PA Unavailable Unavailable Delfino, D Maximo PA Unavailable Unavailable Delfino, D Maximo PA Unavailable Unavailable Delfino, D Maximo PA Unavailable Unavailable Delfino, D Maximo PA Unavailable Unavailable Delfino, D Maximo PA Unavailable Unavailable Delfino, D Maximo PA Unavailable Unavailable Delfino, D Maximo PA Unavailable Unavailable Delfino, D Maximo PA Unavailable Unavailable Delfino, D Maximo PA Unavailable Unavailable Delfino, D Maximo PA Unavailable Unavailable Delfino, D Maximo PA Unavailable Unavailable Delfino, D Maximo PA Unavailable Unavailable Delfino, D Maximo PA Unavailable Unavailable Delfino, D Maximo PA Unavailable Unavailable Delfino, D Maximo PA Unavailable Unavailable Delfino, D Maximo PA Unavailable Unavailable Delfino, D Maximo PA Unavailable Unavailable Delfino, D Maximo PA Unavailable Unavailable Delfino, D Maximo PA Unavailable Unavailable Delfino, D Maximo PA Unavailable Unavailable Delfino, D Maximo PA Unavailable Unavailable Delfino, D Maximo PA Unavailable Unavailable SWAN [id number], T RIGOBERTO [id number] Unavailable Unavailable SWAN [id number], T RIGOBERTO [id number] Unavailable Unavailable SWAN [id number], T RIGOBERTO [id number] Unavailable Unavailable Fish, J Joseph Unavailable Unavailable Fish, J Joseph Unavailable Unavailable Fish, J Joseph Unavailable Unavailable Fish, J Joseph Unavailable Unavailable Fish, J Joseph Unavailable Unavailable Fish, J Joseph Unavailable Unavailable Fish, J Joseph Unavailable Unavailable Fish, J Joseph Unavailable Unavailable Fish, J Joseph Unavailable Unavailable Fish, J Joseph Unavailable Unavailable Fish, J Joseph Unavailable Unavailable Fish, J Joseph Unavailable Unavailable Fish, J Joseph Unavailable Unavailable Fish, J Joseph Unavailable Unavailable Fish, J Joseph Unavailable Unavailable Fish, J Joseph Unavailable Unavailable Fish, J Joseph Unavailable Unavailable Fish, J Joseph Unavailable Unavailable Fish, J Joseph Unavailable Unavailable Fish, J Joseph Unavailable Unavailable Fish, J Joseph Unavailable Unavailable Fish, J Joseph Unavailable Unavailable Fish, J Joseph Unavailable Unavailable Fish, J Joseph Unavailable Unavailable Fish, J Joseph Unavailable Unavailable Fish, J Joseph Unavailable Unavailable Fish, J Joseph Unavailable Unavailable Fish, J Joseph Unavailable Unavailable Fish, J Joseph Unavailable Unavailable Fish, J Joseph Unavailable Unavailable Fish, J Joseph Unavailable Unavailable Fish, J Joseph Unavailable Unavailable Fish, J Joseph Unavailable Unavailable Fish, J Joseph Unavailable Unavailable Fish, J Joseph Unavailable Unavailable Fish, J Joseph Unavailable Unavailable Fish, J Joseph Unavailable Unavailable Fish, J Joseph Unavailable Unavailable Fish, J Joseph Unavailable Unavailable Fish, J Joseph Unavailable Unavailable Fish, J Joseph Unavailable Unavailable Fish, J Joseph Unavailable Unavailable Fish, J Joseph Unavailable Unavailable Fish, J Joseph Unavailable Unavailable Fish, J Joseph Unavailable Unavailable Fish, J Joseph Unavailable Unavailable Fish, J Joseph Unavailable Unavailable Fish, J Joseph Unavailable Unavailable Fish, J Joseph Unavailable Unavailable Fish, J Joseph Unavailable Unavailable Fish, J Joseph Unavailable Unavailable Fish, J Joseph Unavailable Unavailable Fish, J Joseph Unavailable Unavailable Fish, J Joseph Unavailable Unavailable Fish, J Joseph Unavailable Unavailable Fish, J Joseph Unavailable Unavailable Fish, J Jsoeph Unavailable Unavailable Fish, J Joseph Unavailable Unavailable Fish, J Joseph Unavailable Unavailable Fish, J Joseph Unavailable Unavailable Fish, J Joseph Unavailable Unavailable Fish, J Joseph Unavailable Unavailable Fish, J Joseph Unavailable Unavailable Fish, J Joseph Unavailable Unavailable Fish, J Joseph Unavailable Unavailable Fish, J Joseph Unavailable Unavailable Fish, J Joseph Unavailable Unavailable Fish, J Joseph Unavailable Unavailable Fish, J Joseph Unavailable Unavailable Fish, J Joseph Unavailable Unavailable Fish, J Joseph Unavailable Unavailable Fish, J Joseph Unavailable Unavailable Fish, J Joseph Unavailable Unavailable Fish, J Joseph Unavailable Unavailable Fish, J Joseph Unavailable Unavailable Fish, J Joseph Unavailable Unavailable Fish, J Joseph Unavailable Unavailable Fish, J Joseph Unavailable Unavailable Fish, J Joseph Unavailable Unavailable Fish, J Joseph Unavailable Unavailable Fish, J Joseph Unavailable Unavailable Fish, J Joseph Unavailable Unavailable Fish, J Joseph Unavailable Unavailable Fish, J Joseph Unavailable Unavailable Fish, J Joseph Unavailable Unavailable Doremus, E Ada PA Unavailable Unavailable Doremus, E Ada PA Unavailable Unavailable Doremus, E Ada PA Unavailable Unavailable Doremus, E Ada PA Unavailable Unavailable Doremus, E Ada PA Unavailable Unavailable Doremus, E Ada PA Unavailable Unavailable Doremus, E Ada PA Unavailable Unavailable Doremus, E Ada PA Unavailable Unavailable Doremus, E Ada PA Unavailable Unavailable Doremus, E Ada PA Unavailable Unavailable Doremus, E Ada PA Unavailable Unavailable Doremus, E Ada PA Unavailable Unavailable Doremus, E Ada PA Unavailable Unavailable Doremus, E Ada PA Unavailable Unavailable Doremus, E Ada PA Unavailable Unavailable Doremus, E Ada PA Unavailable Unavailable Doremus, E Ada PA Unavailable Unavailable Doremus, E Ada PA Unavailable Unavailable Doremus, E Ada PA Unavailable Unavailable PHYSICIAN, OTHER Unavailable Unavailable GILSON, MANISHA MD Unavailable Unavailable GILSON, MANISHA MD Unavailable Unavailable GILSON, MANISHA MD Unavailable Unavailable GILSON, MANISHA MD Unavailable Unavailable GILSON, MANISHA MD Unavailable Unavailable GILSON, MANISHA MD Unavailable Unavailable GILSON, MANISHA MD Unavailable Unavailable GILSON, MANISHA MD Unavailable Unavailable GILSON, MANISHA MD Unavailable Unavailable GILSON, MANISHA MD Unavailable Unavailable GILSON, MANISHA MD Unavailable Unavailable GILSON, MANISHA MD Unavailable Unavailable GILSON, MANISHA MD Unavailable Unavailable GILSON, MANISHA MD Unavailable Unavailable GILSON, MANISHA MD Unavailable Unavailable GILSON, MANISHA MD Unavailable Unavailable GILSON, MANISHA MD Unavailable Unavailable GILSON, MANISHA MD Unavailable Unavailable GILSON, MANISHA MD Unavailable Unavailable GILSON, MANISHA MD Unavailable Unavailable GILSON, MANISHA MD Unavailable Unavailable GILSON, MANISHA MD Unavailable Unavailable GILSON, MANISHA MD Unavailable Unavailable GILSON, MANISHA MD Unavailable Unavailable GILSON, MANISHA MD Unavailable Unavailable GILSON, MANISHA MD Unavailable Unavailable GILSON, MANISHA MD Unavailable Unavailable GILSON, MANISHA MD Unavailable Unavailable GILSON, MANISHA MD Unavailable Unavailable GILSON, MANISHA MD Unavailable Unavailable GILSON, MANISHA MD Unavailable Unavailable GILSON, MANISHA MD Unavailable Unavailable GILSON, MANISHA MD Unavailable Unavailable GILSON, MANISHA MD Unavailable Unavailable GILSON, MANISHA MD Unavailable Unavailable GILSON, MANISHA MD Unavailable Unavailable GILSON, MANISHA MD Unavailable Unavailable GILSON, MANISHA MD Unavailable Unavailable GILSON, MANISHA MD Unavailable Unavailable GILSON, MANISHA MD Unavailable Unavailable GILSON, MANISHA MD Unavailable Unavailable GILSON, MANISHA MD Unavailable Unavailable Scordo, Keke PA Unavailable Unavailable Barraclough, Dianne PA Unavailable Unavailable Barraclough, Dianne PA Unavailable Unavailable Barraclough, Dianne PA Unavailable Unavailable Barraclough, Dianne PA Unavailable Unavailable Barraclough, Dianne PA Unavailable Unavailable Barraclough, Dianne PA Unavailable Unavailable FRANK OCAMPO MD MPH Unavailable Unavailable Charlebois, A Loren RPA C Unavailable Unavailable Charlebois, A Loren RPA C Unavailable Unavailable Charlebois, A Loren RPA C Unavailable Unavailable Charlebois, A Loren RPA C Unavailable Unavailable Charlebois, A Loren RPA C Unavailable Unavailable Charlebois, A Loren RPA C Unavailable Unavailable Charlebois, A Loren RPA C Unavailable Unavailable Charlebois, A Loren RPA C Unavailable Unavailable Charlebois, A Loren RPA C Unavailable Unavailable Charlebois, A Loren RPA C Unavailable Unavailable Charlebois, A Loren RPA C Unavailable Unavailable Charlebois, A Loren RPA C Unavailable Unavailable Charlebois, A Loren RPA C Unavailable Unavailable Charlebois, A Loren RPA C Unavailable Unavailable Charlebois, A Loren RPA C Unavailable Unavailable Charlebois, A Loren RPA C Unavailable Unavailable Charlebois, A Loren RPA C Unavailable Unavailable Charlebois, A Loren RPA C Unavailable Unavailable Charlebois, A Loren RPA C Unavailable Unavailable Charlebois, A Loren RPA C Unavailable Unavailable Charlebois, A Loren RPA C Unavailable Unavailable Charlebois, A Loren RPA C Unavailable Unavailable Charlebois, A Loren RPA C Unavailable Unavailable Charlebois, A Loren RPA C Unavailable Unavailable Charlebois, A Loren RPA C Unavailable Unavailable Charlebois, A Loren RPA C Unavailable Unavailable Charlebois, A Loren RPA C Unavailable Unavailable Charlebois, A Loren RPA C Unavailable Unavailable Charlebois, A Loren RPA C Unavailable Unavailable Charlebois, A Loren RPA C Unavailable Unavailable Charlebois, A Loren RPA C Unavailable Unavailable GARRETT, SCARLET MD Unavailable Unavailable GARRETT, SCARLET MD Unavailable Unavailable GARRETT, SCARLET MD Unavailable Unavailable GARRETT, SCARLET MD Unavailable Unavailable GARRETT, SCARLET MD Unavailable Unavailable GARRETT, SCARLET MD Unavailable Unavailable GARRETT, SCARLET MD Unavailable Unavailable GARRETT, SCARLET MD Unavailable Unavailable GARRETT, SCARLET MD Unavailable Unavailable GARRETT, SCARLET MD Unavailable Unavailable GARRETT, SCARLET MD Unavailable Unavailable GARRETT, SCARLET MD Unavailable Unavailable GARRETT, SCARLET MD Unavailable Unavailable GARRETT, SCARLET MD Unavailable Unavailable GARRETT, SCARLET MD Unavailable Unavailable GARRETT, SCARLET MD Unavailable Unavailable GARRETT, SCARLET MD Unavailable Unavailable GARRETT, SCARLET MD Unavailable Unavailable GARRETT, SCARLET MD Unavailable Unavailable GARRETT, SCARLET MD Unavailable Unavailable GARRETT, SCARLET MD Unavailable Unavailable GARRETT, SCARLET MD Unavailable Unavailable GARRETT, SCARLET MD Unavailable Unavailable GARRETT, SCARLET MD Unavailable Unavailable GARRETT, SCARLET MD Unavailable Unavailable GARRETT, SCARLET MD Unavailable Unavailable GARRETT, SCARLET MD Unavailable Unavailable GARRETT, SCARLET MD Unavailable Unavailable GARRETT, SCARLET MD Unavailable Unavailable GARRETT, SCARLET MD Unavailable Unavailable Re-disclosure Warning The records that you are about to access may contain information from federally-assisted alcohol or drug abuse programs. If such information is present, then the following federally mandated warning applies: This information has been disclosed to you from records protected by federal confidentiality rules (42 CFR part 2). The federal rules prohibit you from making any further disclosure of this information unless further disclosure is expressly permitted by the written consent of the person to whom it pertains or as otherwise permitted by 42 CFR part 2. A general authorization for the release of medical or other information is NOT sufficient for this purpose. The Federal rules restrict any use of the information to criminally investigate or prosecute any alcohol or drug abuse patient.The records that you are about to access may contain highly sensitive health information, the redisclosure of which is protected by Article 27-F of the [facility] Public Health law. If you continue you may have access to information: Regarding HIV / AIDS; Provided by facilities licensed or operated by the [facility] Office of Mental Health; or Provided by the [facility] Office for People With Developmental Disabilities. If such information is present, then the following [facility] mandated warning applies: This information has been disclosed to you from confidential records which are protected by state law. State law prohibits you from making any further disclosure of this information without the specific written consent of the person to whom it pertains, or as otherwise permitted by law. Any unauthorized further disclosure in violation of state law may result in a fine or halfway sentence or both. A general authorization for the release of medical or other information is NOT sufficient authorization for further disc losure. Allergies and Adverse Reactions Type Description Substance Reaction Status Data Source(s ) Drug allergy ZINISIMIDE ZINISIMIDE [facility] Drug allergy METHOTREXATE METHOTREXATE [facility] Drug allergy ERYTHROMYCIN ERYTHROMYCIN [facility] Drug allergy DOXYCYCLINE DOXYCYCLINE [facility] Drug allergy IMIPRAMINE IMIPRAMINE [facility] y [facility] Miscellaneous allergy ULTRAM ULTRAM [facility] Food allergy TOPAMAX TOPAMAX [facility] DRUG INGREDI ZONISAMIDE ZONISAMIDE [facility] BRANDNAME ULTRAM ULTRAM [facility] BRANDNAME TOPAMAX TOPAMAX [facility] Drug allergy DOXYCYCLINE DOXYCYCLINE [facility] Drug allergy METHOTREXATE METHOTREXATE [facility] Drug allergy IMIPRAMINE IMIPRAMINE [facility] Drug allergy ERYTHROMYCIN ERYTHROMYCIN [facility] Topamax 50 Topamax 50 Topamax 50 increase in creatinine levels Activ e eCW1 ([facility]) Imipramine HCl Imipramine HCl Imipramine HCl increased heart rate Ac tive eCW1 ([facility]) Methotrexate Methotrexate Methotrexate neck pain and migraines Activ e eCW1 ([facility]) Prilosec Prilosec Omeprazole 0.667 MG/ML Oral Susp ension [Prilosec] worsening heart burn Active eCW1 ([facility]) Ultram Ultram tramadol hydrochloride 50 MG Ora l Tablet [Ultram] tongue swelling Active eCW1 ([facility]) Clindamycin HCl Clindamycin HCl Clindamycin HCl Numbing/tingling of tongue Active eCW1 ([facility]) Doxycycline Hyclate Doxycycline Hyclate doxycycline hyclate 100 MG Oral Tablet rash, gi upset Active eCW1 ([facility]) Erythromycin Erythromycin Erythromycin 500 MG Delayed Rele ase Oral Tablet rash, gi upset Active eCW1 ([facility]) Family History Family Member Name Family Member Gender Family Member Status Date o f Status Description Data Source(s) Unknown Female Problem (finding) 05/07/2015 12:00:00 AM EDT [facility] ([facility]) Unknown Female Problem (finding) 05/07/2015 12:00:00 AM EDT [facility] ([facility]) Unknown Female Problem (finding) 05/07/2015 12:00:00 AM EDT [facility] ([facility]) Unknown Unknown Problem MEDENT ([facility] ) Encounters Encounter Providers Location Date Indications Data Source(s ) Outpatient Attender: Celeste Swartz NP 05/25/2021 12:00:00 AM [facility] Outpatient Attender: RIGOBERTO NAVARRETE [id number] 10/17/2020 12:00:0 0 AM [facility] Attender: KIP MCDANIEL MD [facility] 08/12/2020 07:08:00 PM EST - 08/12/2020 07:08:00 PM EST [facility] ( [facility]) Office Visit Attender: SCARLET GARRETT MD Physical Therapy 01:00:00 PM EST MED[facility] ([facility]) Outpatient Attender: MAXIMO HERNANDEZ Physical Therapy 08/07/2020 08:00:00 AM EST MED[facility] ([facility]) Outpatient Attender: SCARLET GARRETT MD Physical Therapy 12:15:00 PM EST MEDENT ([facility]) [place]alia Bocanegra [place] [facility] [place]: [address] [place] [address], Ph. Attender: Rosalia Bocanegra [facility] 08/04/2020 12:00:00 AM EST [facility] ([facility]) Outpatient Attender: JONATAN KERR MD Main Office 07/21/2020 09:45:00 AM EST [facility] ([facility] Outpatient Attender: Saray KIM PA-C Physical Therapy 07/21/2020 08:00:00 AM EST MEDENT ([facility]) Rosalia Bocanegra LMSW: [address] [place] [address], Ph. Attender: Rosalia Bocanegra [facility] 07/11/2020 12:00:00 AM EST [facility] ([facility]) Rosalia Bocanegra LMSW: [address] [place] [address], Ph. Attender: Rosalia Bocanegra [facility] 07/11/2020 12:00:00 AM EST [facility] ([facility]) Rosalia Bocanegra LMSW: [address] [place] [address], Ph. Attender: Rosalia Bocanegra [facility] 07/11/2020 12:00:00 AM EST [facility] ([facility]) Rosalia Bocanegra LMSW: [address] [place] [address], Ph. Attender: Rosalia Bocanegra [facility] 07/11/2020 12:00:00 AM EST [facility]AD ([facility]) Keke Sandoval PA-C: [address] [place] [address], Ph. Attender: Keke HERNANDEZ [facility] Medical 07/04/2020 12:00:00 AM EST [facility] ([facility]) Keke Sandoval PA-C: [address], [place] [address], Ph. Attender: Keke HERNANDEZ [facility] Medical 07/04/2020 12:00:00 AM EST [facility] ([facility]) Keke Sandoval PA-C: [address], [place] [address], Ph. Attender: Keke HERNANDEZ [facility] Medical 07/04/2020 12:00:00 AM EST [facility] ([facility]) Keke Sandoval PA-C: [address], [facility] [address], Ph. Attender: Keke HERNANDEZ [facility] Medical 07/04/2020 12:00:00 AM EST [facility] ([facility]) Keke Sandoval PA-C: [address], [place] [address], Ph. Attender: Keke HERNANDEZ [facility] Medical 07/04/2020 12:00:00 AM EST [facility] ([facility]) Outpatient Attender: JOHANA RAMÍREZ MD Main office - [facility] 07/03/2020 08:00:00 AM EST MED[facility] ([facility]) Outpatient Attender: MAXIMO HERNANDEZ Physical Therapy 07/02/2020 12:00:00 PM EST MEDENT ([facility]) Rosalia Bocanegra, [place] [facility] [place]: [address], [place] [address], Ph. Attender: Rosalia Bocanegra [facility] 06/30/2020 12:00:00 AM EST [facility]AD ([facility]) Rosalia Bocanegra LMSW: [address] [place] [address], Ph. Attender: Rosalia Bocanegra [facility] 06/30/2020 12:00:00 AM EST [facility]AD ([facility]) Rosalia Bocanegra LMSW: [address], [place] [address], Ph. Attender: Rosalia Bocanegra [facility] 06/30/2020 12:00:00 AM EST [facility]AD ([facility]) Rosalia Bocanegra LMSW: [address] [place] [address], Ph. Attender: Rosalia Bocanegra [facility] 06/30/2020 12:00:00 AM EST THAD ([facility]) Rosalia Bocanegra LMSW: [address] [place] [address], Ph. Attender: Rosalia Bocanegra [facility] 06/30/2020 12:00:00 AM EST [facility]AD ([facility]) Rosalia Bocanegra LMSW: [address] [place] [address], Ph. Attender: Rosalia Bocanegra [facility] 06/23/2020 12:00:00 AM EST [facility]AD ([facility]) Rosalia Bocanegra LMSW: [address] [place] [address], Ph. Attender: Rosalia Bocanegra [facility] 06/23/2020 12:00:00 AM EST [facility]AD ([facility]) Rosalia Bocanegra LMSW: [address] [place] [address], Ph. Attender: Rosalia Bocanegra [facility] 06/23/2020 12:00:00 AM EST THAD ([facility]) Rosalia Bocanegra, [employer]: [address] [place] [address], Ph. Attender: Rosalia Bocanegra [facility] 06/23/2020 12:00:00 AM EST THAD ([facility]) Rosalai Bocanegra [place] [facility] [place]: [address] [place] [address], Ph. Attender: Rosalia Bocanegra [facility] 06/23/2020 12:00:00 AM EST [facility]AD ([facility]) Rosalia Bocanegra LMSW: [address] [place] [address], Ph. Attender: Rosalia Bocanegra [facility] 06/16/2020 12:00:00 AM EST [facility]AD ([facility]) Rosalia Bocanegra LMSW: [address] [place] [address], Ph. Attender: Rosalia Bocanegra [facility] 06/16/2020 12:00:00 AM EST THAD ([facility]) Rosalia Bocanegra [place] [facility] [place]: [address] [place] [address], Ph. Attender: Rosalia Bocanegra [facility] 06/16/2020 12:00:00 AM EST [facility]AD ([facility]) Rosalia Bocanegra [employer]: [address] [place] [address], Ph. Attender: Rosalia Bocanegra [facility] 06/16/2020 12:00:00 AM EST [facility]AD ([facility]) Rosalia Bocanegra LMSW: [address] [place] [address], Ph. Attender: Rosalia Bocanegra [facility] 06/16/2020 12:00:00 AM EST THAD ([facility]) Rosalia Bocanegra LMSW: [address] [place] [address], Ph. Attender: Rosalia Bocanegra [facility] 06/16/2020 12:00:00 AM EST THAD ([facility]) Rosalia Bocanegra LMSW: [address] [place] [address], Ph. Attender: Rosalia Bocanegra [facility] 06/16/2020 12:00:00 AM EST THAD ([facility]) Rosalia Bocanegra LMSW: [address] [place] [address], Ph. Attender: Rosalia Bocanegra [facility] 06/13/2020 12:00:00 AM EST THAD ([facility]) Rosalia Bocanegra LMSW: [address] [place] [address], Ph. Attender: Rosalia Bocanegra [facility] 06/13/2020 12:00:00 AM EST THAD ([facility]) Rosalia Bocanegra LMSW: [address] [place] [address], Ph. Attender: Rosalia Bocanegra [facility] 06/13/2020 12:00:00 AM EST THAD ([facility]) Rosalia Bocanegra LMSW: [address] [place] [address], Ph. Attender: Rosalia Landji [facility] 06/13/2020 12:00:00 AM EST THAD ([facility]) Rosalia Franklinji [place] [facility] [place]: [address] [place] [address], Ph. Attender: Rosalia Sahra [facility] 06/13/2020 12:00:00 AM EST THAD ([facility]) Rosalia Sahra [place] [facility] [place]: [address] [place] [address], Ph. Attender: Rosalia Sahra [facility] 06/13/2020 12:00:00 AM EST THAD ([facility]) Rosalia Bocanegra LMSW: [address] [place] [address], Ph. Attender: Rosalia Bocanegra [facility] 06/13/2020 12:00:00 AM EST THAD ([facility]) Rosalia Bocanegra LMSW: [address] [place] [address], Ph. Attender: Rosalia Bocanegra [facility] 06/13/2020 12:00:00 AM EST [facility]AD ([facility]) Rosalia Bocanegra [place] [facility] [place]: [address] [place] [address], Ph. Attender: Rosalia Bocanegra [facility] 06/13/2020 12:00:00 AM EST [facility]AD ([facility]) Outpatient Attender: SCARLET GARRETT MD Physical Therapy 07:00:00 AM EST MEDENT ([facility]) Keke Sandoval PA-C: [address] [place] [address], Ph. Attender: Keke HERNANDEZ [facility] Medical 06/06/2020 12:00:00 AM EST [facility]AD ([facility]) Rosalia Bocanegra LMSW: [address], [place] [address], Ph. Attender: Rosalia Bocanegra [facility] 06/06/2020 12:00:00 AM EST [facility]AD ([facility]) Keke Sandoval PA-C: [address], [place] [address], Ph. Attender: Keke HERNANDEZ [facility] Medical 06/06/2020 12:00:00 AM EST [facility]AD ([facility]) Rosalia Bocanegra LMSW: [address], [place] [address], Ph. Attender: Rosalia Bocanegra [facility] 06/06/2020 12:00:00 AM EST [facility]AD ([facility]) Keke Sandoval PA-C: [address], [place] [address], Ph. Attender: Keke HERNANDEZ [facility] Medical 06/06/2020 12:00:00 AM EST [facility]AD ([facility]) Rosalia Bocanegra LMSW: [address], [place] [address], Ph. Attender: Rosalia Bocanegra [facility] 06/06/2020 12:00:00 AM EST [facility]AD ([facility]) Keke Sandoval PA-C: [address], [facility] [place] [address], Ph. Attender: Keke HERNANDEZ [facility] Medical 06/06/2020 12:00:00 AM EST THAD ([facility]) Rosalia Bocanegra LMSW: [address], [place] [address], Ph. Attender: Rosalia Bocanegra [facility] 06/06/2020 12:00:00 AM EST [facility]AD ([facility]) Keke Sandoval PA-C: [address], [place] [address], Ph. Attender: Keke HERNANDEZ [facility] Medical 06/06/2020 12:00:00 AM EST [facility]AD ([facility]) Rosalia Bocanegra LMSW: [address], [place] [address], Ph. Attender: Rosalia Bocanegra [facility] 06/06/2020 12:00:00 AM EST [facility]AD ([facility]) Keke Sandoval PA-C: [address], [place] [address], Ph. Attender: Keke HERNANDEZ [facility] Medical 06/06/2020 12:00:00 AM EST [facility]AD ([facility]) Rosalia Bocanegra LMSW: [address], [place] [address], Ph. Attender: Rosalia Bocanegra [facility] 06/06/2020 12:00:00 AM EST [facility]AD ([facility]) Keke Sandoval PA-C: [address], [place] [address], Ph. Attender: Keke HERNANDEZ [facility] Medical 06/06/2020 12:00:00 AM EST [facility]AD ([facility]) Rosalia Bocanegra LMSW: [address], [place] [address], Ph. Attender: Rosalia Bocanegra [facility] 06/06/2020 12:00:00 AM EST [facility]AD ([facility]) Keke Sandoval PA-C: [address], [facility] [place] [address], Ph. Attender: Keke HERNANDEZ [facility] Medical 06/06/2020 12:00:00 AM EST [facility]AD ([facility]) Rosalia Bocanegra LMSW: [address], [place] [address], Ph. Attender: Rosalia Bocanegra [facility] 06/06/2020 12:00:00 AM EST [facility]AD ([facility]) Keke Sandoval PA-C: [address], [place] [address], Ph. Attender: Keke HERNANDEZ [facility] Medical 06/06/2020 12:00:00 AM EST [facility]AD ([facility]) Rosalia Bocanegra LMSW: [address], [place] [address], Ph. Attender: Rosalia Bocanegra [facility] 06/06/2020 12:00:00 AM EST [facility]AD ([facility]) Keke Sandoval PA-C: [address], [place] [address], Ph. Attender: Keke HERNANDEZ [facility] Medical 06/06/2020 12:00:00 AM EST [facility]AD ([facility]) Rosalia Bocanegra LMSW: [address], [place] [address], Ph. Attender: Rosalia Bocanegra [facility] 06/06/2020 12:00:00 AM EST [facility]AD ([facility]) Office Visit Attender: Jeet HERNANDEZ Physical Therapy 02:00:00 PM EDT MEDVANSESA ([facility]) Outpatient Attender: MARY HILLS 05/28/2020 12:30:00 PM EDT [facility] Rosalia Bocanegra LMSW: [address] [place] [address], Ph. Attender: Rosalia Bocanegra [facility] 05/28/2020 12:00:00 AM EDT [facility] ([facility]) Rosalia Bocanegra LMSW: [address] [place] [address], Ph. Attender: Rosalia Bocanegra [facility] 05/28/2020 12:00:00 AM EDT [facility] ([facility]) Rosalia Bocanegra LMSW: [address] [place] [address], Ph. Attender: Rosalia Bocanegra [facility] 05/28/2020 12:00:00 AM EDT [place] ([facility]) Rosalia Bocanegra LMSW: [address] [place] [address], Ph. Attender: Rosalia Bocanegra [facility] 05/28/2020 12:00:00 AM EDT [place] ([facility]) Rosalia Bocanegra LMSW: [address] [place] [address], Ph. Attender: Rosalia Bocanegra [facility] 05/28/2020 12:00:00 AM EDT [place] ([facility]) Rosalia Bocanegra LMSW: [address] [place] [address], Ph. Attender: Rosalia Bocanegra [facility] 05/28/2020 12:00:00 AM EDT [place] ([facility]) Rosalia Bocanegra, [place] [facility] [place]: [address] [place] [address], Ph. Attender: Rosalia Bocanegra [facility] 05/28/2020 12:00:00 AM EDT [place] ([facility]) Rosalia BocanegraAUTUMNSW: [address] [place] [address], Ph. Attender: [place]alia Boc[place]egra [facility] 05/28/2020 12:00:00 AM EDT [place] ([facility]) Rosalia BocanegraAUTUMNSW: [address] [place] [address], Ph. Attender: [place] [facility] 05/28/2020 12:00:00 AM EDT [place] ([facility]) [place]alia Bocanegra [place] [facility] [place]: [address] [place] [address], Ph. Attender: [place] [facility] 05/28/2020 12:00:00 AM EDT [place] ([facility]) Outpatient Attender: Celeste Swartz NP [id number] 05/01 12:00:00 AM EDT - 05/19/2020 01:04:29 PM EDT Encounter for gynecological examination (general) (routine) without abnormal findings [facility] Encounter for gynecological examination (general) (routine) without abnormal findings Office Visit Attender: Jeet HERNANDEZ Physical Therapy 09:30:00 AM EDT [facility] ([facility]) Outpatient Attender: AARON ROTHMAN ALL 05/13/2020 04:25:02 PM EDT [facility] Outpatient Attender: [id number] Benjamin Aparicio [facility] 05/08/2020 08:57:00 AM EDT - 05/08/2020 08:58:00 AM EDT [facility] Patient discharged. Outpatient Attender: AARON GONSALVES ALL 05/07/2020 11:25:00 AM EDT [facility] Office Visit Attender: Jeet HERNANDEZ Physical Therapy 01:45:00 PM EDT MED[facility] ([facility]) Outpatient Attender: SCARLET GARRETT MD Physical Therapy 02:00:00 PM EDT MED[facility] ([facility]) Outpatient Attender: AARON ANDREWS [facility] ALL 04/28/2020 01:31:03 PM EDT [facility] Outpatient Attender: MARY Sandoval ALL 04/26/2020 12:00:19 AM EDT [facility] Outpatient Attender: MARY DALEY 04/25/2020 02:04:01 PM EDT [facility] Outpatient Attender: AARON ANDREWS [facility] ALL 04/25/2020 02:03:01 PM EDT [facility] Outpatient Attender: AARON ANDREWS [facility] ALL 04/25/2020 08:23:01 AM EDT [facility] Outpatient Attender: AARON ANDREWS [facility] ALL 04/23/2020 03:14:02 PM EDT [facility] Outpatient Attender: RIGOBERTO NAVARRETE [id number] 12:00:00 AM EDT - 04/17/2020 02:45:45 PM EDT Glomerular disease in systemic lupus erythematosus 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 Outpatient Attender: Ada HERNANDEZ Physical Therapy 01:15:00 PM EDT MED[facility] ([facility]) Outpatient Attender: Maximo HERNANDEZ [place] [facility] 10/2019 10:20:00 AM EDT [facility] ([facility] Outpatient Attender: SCARLET GARRETT MD Physical Therapy 01:30:00 PM EDT [facility] ([facility]) Outpatient Attender: Joseph Piercesuant: Maximo HERNANDEZ 04/01/2020 03:13:00 PM EDT - 04/01/2020 04:13:00 PM EDT [facility] Outpatient Att[facility] [place] 04/01/2020 11:00:00 AM EDT [facility] ([facility] Outpatient Attender: JOHANA RAMÍREZ MD Main office - [facility] n 03/31/2020 10:00:00 AM EDT [facility] ([facility] Outpatient Attender: Jeet HERNANDEZ Physical Therapy 09:00:00 AM EDT MEDENT ([facility]) Outpatient Attender: Loren Roper/Gerard/Joshua mullins/Reindl 03/21/2020 09:00:00 AM EDT MEDENT ([facility], ) Outpatient Attender: SCARLET GARRETT MD Physical Therapy 02:30:00 PM EDT MED[facility] ([facility]) Outpatient Attender: JONATAN KERR MD Main Office 03/20/2020 02:30:00 PM EDT [facility] ([facility] Emergency Attender: SNEHA Kumarsultant: Maximo HERNANDEZ 03/17/2020 10:57:00 PM EDT - 03/18/2020 12:18:00 AM EDT [facility] Patient discharged. Outpatient Attender: SCARLET GARRETT MD Physical Therapy 03:30:00 PM EDT [facility] ([facility]) Outpatient [id number] 03/04/2020 09:55:00 AM EDT - 03/04/2020 09:55:00 AM EDT Lab test [facility] Lab test Outpatient Attender: MANISHA RIGGINS MD ER-CTCMEDONC 03/03/2020 0 3:28:00 PM EDT [facility] Outpatient Attender: JOHANA RAMÍREZ MD Main office - [facility] 02/12/2020 01:45:00 PM EDT MEDENT ([facility]) Outpatient Attender: Benjamin Aparicio MDAttender: [id number] Benjamin Aparicio MD [facility] 02/07/2020 08:35:00 AM EDT - 02/07/2020 08:36:00 AM EDT M32. 9 [facility] M32.9 Patient discharged. Outpatient Attender: Maximo HERNANDEZ [place] [facility] 11:30:00 AM EDT [facility] ([facility] Outpatient Referrer: JONATAN KERR MD 01/08/2020 03: 09:00 PM EDT [facility] Outpatient Referrer: JONATAN KERR MD 01/08/2020 03: 08:00 PM EDT [facility] Outpatient Referrer: JONATAN KERR MD 01/08/2020 03: 05:00 PM EDT [facility] Outpatient Attender: JONATAN KERR MD Main Office 01/08/2020 01:15:00 PM EDT [facility] ([facility]) Outpatient Attender: Maximo Baron PAConsultant: Maximo HERNANDEZ 01/07/2020 08:18:53 AM EDT - 01/21/2020 08:59:00 AM EDT [facility] Patient discharged. Outpatient Attender: Maximo HERNANDEZ [place] [facility] 10/2019 02:40:00 PM EDT MEDENT ([facility] Outpatient Attender: SCARLET GARRETT MD Physical Therapy 02:30:00 PM EDT [facility] ([facility]) Outpatient Attender: Loren Roper/Gerard/Joshua mullins/Reindl 12/20/2019 09:00:00 AM EDT MEDENT ([facility] MIGUELITO [facility]) Outpatient Attender: Maximo HERNANDEZ [place] [facility] 02:20:00 PM EDT MED[facility] ([facility] Outpatient Attender: JOHANA RAMÍREZ MD Main office - [facility] 12/14/2019 12:30:00 PM EDT MED[facility] ([facility] Outpatient Referrer: Maximo HERNANDEZ 12/03/2019 11:08:00 AM EDT [facility] Outpatient Attender: [facility]INS [facility] 12/03/2019 0 9:31:00 AM EDT [facility] Outpatient Attender: Maximo HERNANDEZ [place] [facility] 08/2019 03:00:00 PM EDT [facility] ([facility] Outpatient Referrer: MANISHA RIGGINS MD 11/30/2019 11:35:0 0 AM EDT [facility] Outpatient Referrer: MANISHA RIGGINS MD 11/30/2019 11:32:0 0 AM EDT [facility] Outpatient Referrer: MANISHA RIGGINS MD 11/30/2019 11:30:0 0 AM EDT [facility] Outpatient Referrer: MANISHA RIGGINS MD 11/30/2019 11:29:0 0 AM EDT [facility] Outpatient Referrer: MANISHA RIGGINS MD 11/29/2019 03:18:0 0 PM EDT [facility] Outpatient Referrer: CHAZ ROBLES MD 11/07/2019 06:00:00 A M EDT [facility] Outpatient Attender: [id number] Benjamin Aparicio MD [facility] 11/06/2019 09:01:00 AM EDT - 11/06/2019 09:02:00 AM EDT [facility] Patient discharged. Outpatient Attender: JOHANA RAMÍREZ MD Main office - [facility] 10/19/2019 12:15:00 PM EDT MED[facility] ([facility] Outpatient Attender: Darrel Hernandez Jr [place] Office 01:15:00 PM EDT MED[facility] ([facility] Outpatient Attender: Dianne HERNANDEZ [place] [facility] 10/10/2019 11:00:00 AM EDT [facility] ([facility] 10/08/2019 12:45:00 PM EDT - 020 12:45:00 PM EDT [facility] ([facility]) Outpatient Attender: Dianne HERNNADEZ [place] [facility] 10/03/2019 09:40:00 AM EST MED[facility] ([facility] [address] [place], [place] [id number] 09/28/2019 12:00:00 AM EST [facility]CW1 [facility] Outpatient Attender: Darrel Hernandez Jr [place] Office 10:30:00 AM EST MEDENT ([facility] Outpatient Attender: Maximo HERNANDEZ [place] Office 05/2020 02:15:00 PM EST MED[facility] ([facility] [address] [place] [address] 09/05/2019 12:00:00 AM EST eCW1 ([facility]) Outpatient Attender: Maximo HERNANDEZ [place] Office 08:30:00 AM EST MEDENT ([facility] [address] [place] [address] 08/27/2019 12:00:00 AM EST eCW1 ([facility]) Outpatient Attender: RIGOBERTO NAVARRETE [id number]: BENJAMIN APARICIO [id number] 08/17/2019 12:00:00 AM EST - 08/17/2019 05:18:33 PM EST Glomerular disease in systemic lupus erythematosus 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 Outpatient Attender: Maximo HERNANDEZ [place] Office 09/2019 12:00:00 PM EST MED[facility] ([facility] Outpatient Attender: Dianne HERNANDEZ [place] [facility] 07/27/2019 02:45:00 PM EST [facility] ([facility] Outpatient Attender: Dianne HERNANDEZ [place] [facility] 07/19/2019 02:15:00 PM EST MED[facility] ([facility] Outpatient Attender: MANISHA RIGGINS MD [facility] 07/16/2019 0 1:09:00 PM [facility] Outpatient Referrer: CHAZ ROBLES MD 07/15/2019 06:24:00 P M EST [facility] Outpatient Attender: MANISHA RIGGINS MD [facility] 07/02/2019 03:07:0 0 PM [facility] Outpatient Attender: [id number] Benjamin Aparicio MD [facility] 07/02/2019 12:44:00 PM EST - 07/02/2019 12:45:00 PM [facility] Patient discharged. Outpatient Attender: Darrel Hernandez Jr [place] Office 01:00:00 PM EST MEDENT ([facility] Outpatient Attender: Maximo HERNANDEZ [place] Office 09:00:00 AM EST MEDENT ([facility] Outpatient Attender: [id number] Benjamin Aparicio MD [facility] 06/04/2019 01:05:00 PM EST - 06/04/2019 01:06:00 PM [facility] Patient discharged. Outpatient Attender: MANISHA RIGGINS MD [facility] 03/19/2019 0 1:41:00 PM [facility] Outpatient Attender: OTHER PHYSICIAN 02/26/2019 11:24:00 A M [facility] Outpatient Attender: MANISHA RIGGINS MD [facility] 02/12/2019 0 2:51:00 PM [facility] Outpatient Attender: MANISHA RIGGINS MDAttender: FRANK OCAMPO MD [facility] 02/02/2019 01:22:00 PM [facility] Medications Medication Brand Name Start Date Product Form Dose Route Admi nistrative Instructions Pharmacy Instructions Status Indications Reaction Description Data Source(s) 60 mg 07/30/2020 12:00:00 AM EST capsule,biphase delayed releas 90 TAKE ONE CAPSULE BY MOUTH EVERY DAY TAKE ONE CAPSULE BY MOUTH EVERY DAY SOLD: 07/30/2020 [facility] 2.5 mg 07/24/2020 12:00:00 AM EST tablet 30 TAKE ONE TABLET BY MOUTH EVERY DAY TAKE ONE TABLET BY MOUTH EVERY DAY SOLD: 07/24/2020 [facility] Azelastine hydrochloride 0.206 MG/ACTUAT Metered Dose Nasal [place] 0.15 % (205.5 mcg) AZELASTINE HCL 07/23/2020 12:00:00 AM EST spray,non-aerosol 30 USE 2 SPRAYS IN EACH NOSTRIL ONCE A DAY EVERY MORNING NEEDED USE 2 SPRAYS IN EACH NOSTRIL ONCE A DAY EVERY MORNING NEEDED SOLD: 07/23/2020 [facility] 5 mg 07/22/2020 12:00:00 AM EST tablet 180 TAKE 2 TABLETS BY MOUTH DAILY TAKE 2 TABLETS BY MOUTH DAILY SOLD: 07/22/2020 [facility] 90 mcg/actuation 07/21/2020 12:00:00 AM EST HFA aerosol inha ler 8 INHALE 2 PUFFS BY MOUTH EVERY 4 TO 6 HOURS NEEDED FOR COUGH,WHEEZE,SHORTNESS OF BREATH & 15 MINUTES PRIOR TO EXERCISE INHALE 2 PUFFS BY MOUTH EVERY 4 TO 6 [address] RS NEEDED FOR COUGH,WHEEZE,SHORTNESS OF BREATH & 15 MINUTES PRIOR TO EXERCISE SOLD: 07/22/2020 [facility] 250 mg calcium 07/07/2020 12:00:00 AM EST tablet 120 TAKE 2 TABLETS [500MG] BY MOUTH TWO TIMES A DAY TAKE 2 TABLETS [500MG] BY MOUTH TWO TIMES A DAY SOLD: 08/05/2020 [facility] 250 mg calcium 07/07/2020 12:00:00 AM EST tablet 120 TAKE 2 TABLETS [500MG] BY MOUTH TWO TIMES A DAY TAKE 2 TABLETS [500MG] BY MOUTH TWO TIMES A DAY SOLD: 07/08/2020 [facility] 100 mg 07/04/2020 12:00:00 AM EST capsule 90 TAKE ONE CAPSULE BY MOUTH THREE TIMES A DAY TAKE ONE CAPSULE BY MOUTH THREE TIMES A DAY SOLD: 07/04/2020 [facility] 5-6.25 mg 06/25/2020 12:00:00 AM EST tablet 90 TAKE ONE TABLET BY MOUTH EVERY DAY TAKE ONE TABLET BY MOUTH EVERY DAY SOLD: 06/25/2020 [facility] 250 mg calcium 06/09/2020 12:00:00 AM EST tablet 120 TAKE 2 TABLETS (500MG) BY MOUTH TWO TIMES A DAY TAKE 2 TABLETS (500MG) BY MOUTH TWO TIMES A DAY SOLD: 06/10/2020 [facility] Potassium Chloride 10 MEQ Extended Release Oral Tablet POTAS SIUM CHLORIDE 06/06/2020 12:00:00 AM EST tablet extended release 192 TAKE ONE TABLET BY MOUTH TWICE A DAY EXCEPT TUESDAY AND TUESDAY TAKE 1 TABLET BY MOUTH THREE TIMES A DAY TAKE ONE TABLET BY MOUTH TWICE A DAY EXC EPT TUESDAY AND TUESDAY TAKE 1 TABLET BY MOUTH THREE TIMES A DAY SOLD: 06/07/2020 [facility] 37.5 mg 06/06/2020 12:00:00 AM EST capsule,extended releas e 24hr 45 TAKE ONE CAPSULE BY MOUTH ONCE DAILY FOR ONE WEEK THEN INCREASE TO TWO CAPSULES EVERY MORNING TAKE ONE CAPSULE BY MOUTH ONCE DAILY FOR ONE WEEK THEN INCREASE TO TWO CAPSULES EVERY MORNING SOLD: 06/07/2020 [facility] 100 mcg 06/06/2020 12:00:00 AM EST tablet 90 TAKE ONE TABLET BY MOUTH EVERY DAY TAKE ONE TABLET BY MOUTH EVERY DAY SOLD: 06/07/2020 [facility] 2 ML Sodium Hyaluronate 10 MG/ML Prefilled Syringe [Euflexxa ] Euflexxa 05/05/2020 12:00:00 AM EDT active MED[facility] ([facility]) 5-6.25 mg 04/29/2020 12:00:00 AM EDT tablet 30 ANALILIA E 1 TABLET BY MOUTH DAILY TAKE 1 TABLET BY MOUTH DAILY SOLD: 05/26/2020 [facility] 5-6.25 mg 04/29/2020 12:00:00 AM EDT tablet 30 ANALILIA E 1 TABLET BY MOUTH DAILY TAKE 1 TABLET BY MOUTH DAILY SOLD: 04/29/2020 [facility] 20 mg 04/26/2020 12:00:00 AM EDT tablet 30 TAKE ONE TABLET BY MOUTH ONCE DAILY TAKE ONE TABLET BY MOUTH ONCE DAILY SOLD: 04/26/2020 [facility] Tropicamide 10 MG/ML Ophthalmic Solution tropicamide (MYDRIACYL) 1 % ophthalmic solution 1 drop tropicamide (MYDRIACYL) 1 % ophthalmic solution 1 drop 04/17/2020 01:30:00 PM EDT 1 [drp] Both Eyes completed 1 drop, Both Eyes, Once, [facility] 04/17/20 at 1330, For 1 dose [facility] Medication administered onsite Phenylephrine Hydrochloride 25 MG/ML Oph thalmic Solution phenylephrine (MYDFRIN) 2.5 % ophthalmic solution 1 drop phenylephrine (MYDFRIN) 2.5 % ophthalmic solution 1 drop 04/17/2020 01:30:00 PM EDT 1 [drp] Both Eyes completed 1 drop, Both Eyes, Once, [facility] 04/17/20 at 1330, For 1 do [facility] Medication administered onsite Proparacaine hydrochloride 5 MG/ML Ophth almic Solution proparacaine (ALCAINE) 0.5 % ophthalmic solution 1 drop proparacaine (ALCAINE) 0.5 % ophthalmic solution 1 drop 04/17/2020 01:30:00 PM EDT 1 [drp] Both Eyes completed 1 drop, Both Eyes, Once, Ergi 04/17/20 at 1330, For 1 do [facility] Medication administered onsite Baclofen 10 MG Oral Tablet Baclofen 04/04/2020 12:00:00 AM EDT ORAL active [facility] 10 mg 04/04/2020 12:00:00 AM EDT tablet 30 TAKE ONE TABLET BY MOUTH AT BEDTIME TAKE ONE TABLET BY MOUTH AT BEDTIME SOLD: 04/07/2020 [facility] Cephalexin 500 MG Oral Capsule CEPHALEXIN 04/02/2020 12:00:00 AM EDT capsule 28 TAKE ONE CAPSULE BY MOUTH FOUR TIMES A DAY TAKE ONE CA PSULE BY MOUTH FOUR TIMES A DAY SOLD: 04/02/2020 [facility] 60 mg 03/21/2020 12:00:00 AM EDT capsule,biphase delayed releas 30 TAKE ONE CAPSULE BY MOUTH EVERY DAY TAKE ONE CAPSULE BY MOUTH EVERY DAY SOLD: 06/01/2020 [facility] Suprep Bowel Prep Kit Suprep Bowel Prep Kit 03/21/2020 12:00:00 AM EDT active MEDENT ([facility] ) Magnesium Hydroxide 80 MG/ML Oral Suspension Milk Of Magnesi a 03/21/2020 12:00:00 AM EDT ORAL active M EDENT ([facility], ) 60 mg 03/21/2020 12:00:00 AM EDT capsule,biphase delayed releas 30 TAKE ONE CAPSULE BY MOUTH EVERY DAY TAKE ONE CAPSULE BY MOUTH EVERY DAY SOLD: 06/29/2020 [facility] 80-4.5 mcg/actuation 03/21/2020 12:00:00 AM EDT HFA aerosol inhaler 20 INHALE 2 PUFFS TWO TIMES A DAY -- IN THE MORNING AND EVENING INHALE 2 PUFFS TWO TIMES A DAY -- IN THE MORNING AND EVENING SOLD: 03/22/2020 [facility] 17.5-3.13-1.6 gram 03/21/2020 12:00:00 AM EDT [facility] 354 TAKE PER DOCTOR'S BOWEL PREP INSTRUCTIONS TAKE PER DOCTOR'S BOWEL PREP INSTRUCTIONS SOLD: 03/22/2020 [facility] 60 mg 03/21/2020 12:00:00 AM EDT capsule,biphase delayed releas 30 TAKE ONE CAPSULE BY MOUTH EVERY DAY TAKE ONE CAPSULE BY MOUTH EVERY DAY SOLD: 03/22/2020 [facility] 60 mg 03/21/2020 12:00:00 AM EDT capsule,biphase delayed releas 30 TAKE ONE CAPSULE BY MOUTH EVERY DAY TAKE ONE CAPSULE BY MOUTH EVERY DAY SOLD: 04/27/2020 [facility] Flonase Sensimist Flonase Sensimist 03/20/2020 12:00:00 AM EDT completed [facility] ([facility]) Potassium Chloride 10 MEQ Extended Release Oral Tablet POTAS SIUM CHLORIDE 02/19/2020 12:00:00 AM EDT tablet extended release 192 TAKE 1 TABLET BY MOUTH TWO TIMES A DAY EXCEPT TUESDAY AND TUESDAY TAKE 1 TABLET THREE TIMES A DAY TAKE 1 TABLET BY MOUTH TWO TIMES A DAY EXCEPT TUESDAY AND TUESDAY TAKE 1 TABLET THREE TIMES A DAY SOLD: 02/19/2020 [facility] 5 mg 02/07/2020 12:00:00 AM EDT tablet 30 TAKE ONE TABLET BY MOUTH EVERY DAY TAKE ONE TABLET BY MOUTH EVERY DAY SOLD: 07/22/2020 [facility] 5 mg 02/07/2020 12:00:00 AM EDT tablet 30 TAKE ONE TABLET BY MOUTH EVERY DAY TAKE ONE TABLET BY MOUTH EVERY DAY SOLD: 06/25/2020 [facility] 5 mg 02/07/2020 12:00:00 AM EDT tablet 30 TAKE ONE TABLET BY MOUTH EVERY DAY TAKE ONE TABLET BY MOUTH EVERY DAY SOLD: 02/07/2020 [facility] 5 mg 02/07/2020 12:00:00 AM EDT tablet 30 TAKE ONE TABLET BY MOUTH EVERY DAY TAKE ONE TABLET BY MOUTH EVERY DAY SOLD: 04/22/2020 [facility] 5 mg 02/07/2020 12:00:00 AM EDT tablet 30 TAKE ONE TABLET BY MOUTH EVERY DAY TAKE ONE TABLET BY MOUTH EVERY DAY SOLD: 05/26/2020 [facility] 5 mg 02/07/2020 12:00:00 AM EDT tablet 30 TAKE ONE TABLET BY MOUTH EVERY DAY TAKE ONE TABLET BY MOUTH EVERY DAY SOLD: 03/18/2020 [facility] 25 mcg (1,000 unit) 01/29/2020 12:00:00 AM EDT tablet 90 TAKE ONE TABLET BY MOUTH EVERY DAY TAKE ONE TABLET BY MOUTH EVERY DAY SOLD: 04/27/2020 [facility] 25 mcg (1,000 unit) 01/29/2020 12:00:00 AM EDT tablet 90 TAKE ONE TABLET BY MOUTH EVERY DAY TAKE ONE TABLET BY MOUTH EVERY DAY SOLD: 01/29/2020 [facility] 5-6.25 mg 01/25/2020 12:00:00 AM EDT tablet 90 TAKE ONE TABLET BY MOUTH EVERY DAY TAKE ONE TABLET BY MOUTH EVERY DAY SOLD: 01/25/2020 [facility] 10 mg 01/25/2020 12:00:00 AM EDT tablet 42 TAKE 3 TABLETS BY MOUTH DAILY FOR 1 WEEK THEN 2 TABLETS DAILY FOR 1 WEEK THEN 1 TABLET DAILY FOR 1 WEEK TAKE 3 TABLETS BY MOUTH DAILY FOR 1 WEEK THEN 2 TABLETS DAILY FOR 1 WEEK THEN 1 TABLET DAILY FOR 1 WEEK SOLD: 01/25/2020 [facility] Albuterol Sulfate HFA 108 (90 Base) MCG/ ACT Inhalation Aerosol Solution (PROVENTIL HFA) [id number] 01/14/2020 12:00:00 AM EDT [facility] 60 ACTUAT Budesonide 0.08 MG/ACTUAT / fo rmoterol fumarate 0.0045 MG/ACTUAT Metered Dose Inhaler [Symbicort] Symbicort 01/08/2020 12:00:00 AM EDT RESPIRATORY active MED[facility] ( [facility]) Fluticasone Propionate Fluticasone Propionate 01/08/2020 12:00:00 AM E DT completed [facility] ([facility] 50 mcg/actuation 01/08/2020 12:00:00 AM EDT spray,suspension 48 SPRAY 2 SPRAYS [100MCG] IN EACH NOSTRIL ONCE DAILY IN THE EVENING SPRAY 2 SPRAYS [100MCG] IN EACH NOSTRIL ONCE DAILY IN THE EVENING SOLD: 01/08/2020 [facility] dexlansoprazole 60 MG Delayed Release Oral Capsule [Dexilant ] Dexilant 2020 12:00:00 AM EDT active [facility] ([facility] 25 mg 01/01/2020 12:00:00 AM EDT capsule 90 TAKE 3 CAPSULES BY MOUTH NIGHTLY TAKE 3 CAPSULES BY MOUTH NIGHTLY SOLD: 02/28/2020 [facility] 25 mg 01/01/2020 12:00:00 AM EDT capsule 90 TAKE 3 CAPSULES BY MOUTH NIGHTLY TAKE 3 CAPSULES BY MOUTH NIGHTLY SOLD: 01/31/2020 [facility] 25 mg 01/01/2020 12:00:00 AM EDT capsule 90 TAKE 3 CAPSULES BY MOUTH NIGHTLY TAKE 3 CAPSULES BY MOUTH NIGHTLY SOLD: 2020 [facility] zonisamide 25 MG Oral Capsule Zonisamide 12/31/2019 12:00:00 AM EDT ORAL active [facility] ([facility] 90 mcg/actuation 12/18/2019 12:00:00 AM EDT HFA aerosol inha ler 8 INHALE TWO PUFFS BY MOUTH EVERY 4 HOURS NEEDED FOR SHORTNESS OF BREATH INHALE TWO PUFFS BY MOUTH EVERY 4 HOURS NEEDED FOR SHORTNESS OF BREATH SOLD: 01/01/2020 [facility] 90 mcg/actuation 12/18/2019 12:00:00 AM EDT HFA aerosol inha ler 8 INHALE TWO PUFFS BY MOUTH EVERY 4 HOURS NEEDED FOR SHORTNESS OF BREATH INHALE TWO PUFFS BY MOUTH EVERY 4 HOURS NEEDED FOR SHORTNESS OF BREATH SOLD: 12/18/2019 [facility] 90 mcg/actuation 12/18/2019 12:00:00 AM EDT HFA aerosol inha ler 8 INHALE TWO PUFFS BY MOUTH EVERY 4 HOURS NEEDED FOR SHORTNESS OF BREATH INHALE TWO PUFFS BY MOUTH EVERY 4 HOURS NEEDED FOR SHORTNESS OF BREATH SOLD: 01/15/2020 [facility] 60 ACTUAT Albuterol 0.09 MG/ACTUAT Metered Dose Inhaler Albu terol Sulfate HFA 12/18/2019 12:00:00 AM EDT RESPIRATORY active MED[facility] ([facility] 500 mg 12/03/2019 12:00:00 AM EDT capsule 28 TAKE ONE CAPSULE BY MOUTH FOUR TIMES A DAY TAKE ONE CAPSULE BY MOUTH FOUR TIMES A DAY SOLD: 12/03/2019 [facility] 60 mg 12/01/2019 12:00:00 AM EDT capsule,biphase delayed releas 30 TAKE ONE CAPSULE BY MOUTH EVERY DAY TAKE ONE CAPSULE BY MOUTH EVERY DAY SOLD: 02/22/2020 [facility] 60 mg 12/01/2019 12:00:00 AM EDT capsule,biphase delayed releas 30 TAKE ONE CAPSULE BY MOUTH EVERY DAY TAKE ONE CAPSULE BY MOUTH EVERY DAY SOLD: 12/29/2019 [facility] 60 mg 12/01/2019 12:00:00 AM EDT capsule,biphase delayed releas 30 TAKE ONE CAPSULE BY MOUTH EVERY DAY TAKE ONE CAPSULE BY MOUTH EVERY DAY SOLD: 01/25/2020 [facility] 60 mg 12/01/2019 12:00:00 AM EDT capsule,biphase delayed releas 30 TAKE ONE CAPSULE BY MOUTH EVERY DAY TAKE ONE CAPSULE BY MOUTH EVERY DAY SOLD: 12/01/2019 [facility] dexlansoprazole 60 MG Delayed Release Oral Capsule [Dexilant ] Dexilant 11/30/2019 12:00:00 AM EDT ORAL completed [facility] ([facility] 25 mg 11/27/2019 12:00:00 AM EDT capsule 42 TAKE 1 CAPSULE BY MOUTH NIGHTLY FOR 1 WEEK THEN 1 CAPSULE TWICE A DAY FOR 1 WEEK THEN 1 CAPSULE MORNING AND 2 CAPSULES NIGHTLY TAKE 1 CAPSULE BY MOUTH NIGHTLY FOR 1 WE EK THEN 1 CAPSULE TWICE A DAY FOR 1 WEEK THEN 1 CAPSULE MORNING AND 2 CAPSULES NIGHTLY SOLD: 11/27/2019 [facility] 10 mg 11/06/2019 12:00:00 AM EDT tablet 21 (SEE INSTRUCTIONS) TAKE 2 TABLETS BY MOUTH DAILY FOR 1 WEEK, THEN 1 TABLET DAILY FOR 1 WEEK NEEDED LUPUS FLARE (SEE INSTRUCTIONS) TAKE 2 TABLETS BY JONATHAN TH DAILY FOR 1 WEEK, THEN 1 TABLET DAILY FOR 1 WEEK NEEDED LUPUS FLARE SOLD: 11/06/2019 [facility] 25 mg 11/01/2019 12:00:00 AM EDT capsule 42 TAKE 1 CAPSULE BY MOUTH NIGHTLY X 1 WEEK THEN 1 TWICE A DAY X 1 WEEK THEN 1 EVERY MORNING & 2 NIGHTLY TAKE 1 CAPSULE BY MOUTH NIGHTLY X 1 WEEK THEN 1 TWICE A DAY X 1 WEEK THEN 1 EVERY MORNING & 2 NIGHTLY SOLD: 11/01/2019 [facility] Methocarbamol 500 MG Oral Tablet Methocarbamol 11/01/2019 12:00:00 AM EDT ORAL active MED[facility] ([facility]) 500 mg 11/01/2019 12:00:00 AM EDT tablet 30 TAKE ONE TABLET BY MOUTH EVERY DAY NEEDED TAKE ONE TABLET BY MOUTH EVERY DAY NEEDED SOLD: 12/01/2019 [facility] 50 mg 11/01/2019 12:00:00 AM EDT capsule 60 TAKE ONE CAPSULE BY MOUTH TWICE A DAY TAKE ONE CAPSULE BY MOUTH TWICE A DAY SOLD: 11/01/2019 [facility] 500 mg 11/01/2019 12:00:00 AM EDT tablet 30 TAKE ONE TABLET BY MOUTH EVERY DAY NEEDED TAKE ONE TABLET BY MOUTH EVERY DAY NEEDED SOLD: 11/01/2019 [facility] 50 mg 11/01/2019 12:00:00 AM EDT capsule 60 TAKE ONE CAPSULE BY MOUTH TWICE A DAY TAKE ONE CAPSULE BY MOUTH TWICE A DAY SOLD: 01/19/2020 [facility] Alprazolam 0.5 MG Oral Tablet ALPRAZOLAM 10/22/2019 12:00:00 AM EDT ta blet 2 1 TAB.BY MOUTH 15MIN.PRIOR TO SCAN MAY REPEAT 30MIN. LATER IF STILL ANXIOUS MAX=2TABS/DAY 1 TAB.BY MOUTH 15MIN.PRIOR TO SCAN MAY R EPEAT 30MIN. LATER IF STILL ANXIOUS MAX=2TABS/DAY SOLD: 10/22/2019 [facility] Alprazolam 0.5 MG Oral Tablet [Xanax] Xanax 10/22/2019 12:00:00 AM EDT active MEDENT ([facility] 25 mcg (1,000 unit) 10/20/2019 12:00:00 AM EDT tablet 90 TAKE 1 TABLET BY MOUTH EVERY DAY TAKE 1 TABLET BY MOUTH EVERY DAY SOLD: 10/22/2019 [facility] 100 mcg 10/19/2019 12:00:00 AM EDT tablet 90 TAKE 1 TABLET BY MOUTH EVERY MORNING TAKE 1 TABLET BY MOUTH EVERY MORNING SOLD: 10/22/2019 [facility] 5-6.25 mg 10/18/2019 12:00:00 AM EDT tablet 90 TAKE 1 TABLET BY MOUTH EVERY DAY TAKE 1 TABLET BY MOUTH EVERY DAY SOLD: 10/18/2019 [facility] 10 mEq 10/16/2019 12:00:00 AM EDT tablet extended release 192 TAKE 1 TABLET BY MOUTH TWICE A DAY EXCEPT TUESDAY & TUESDAY TAKE 1 TABLET THREE TIMES A DAY TAKE 1 TABLET BY MOUTH TWICE A DAY EXCEPT TUESDAY & TUESDAY TAKE 1 TABLET THREE TIMES A DAY SOLD: 10/16/2019 [facility] 40 mg 10/16/2019 12:00:00 AM EDT tablet,delayed release (DR/EC) 90 TAKE 1 TABLET BY MOUTH EVERY DAY TAKE 1 TABLET BY MOUTH EVERY DAY SOLD: 10/16/2019 [facility] Cholecalciferol 1000 UNT Oral Capsule Vitamin D-3 10/15/2019 12:00 :00 AM EDT ORAL active [facility] ([facility] Baclofen 5 MG Oral Tablet Baclofen 10/03/2019 12:00:00 AM EST completed [facility] 40 mg 10/01/2019 12:00:00 AM EST tablet 90 TAKE 1 TABLET BY MOUTH EVERY EVENING TAKE 1 TABLET BY MOUTH EVERY EVENING SOLD: 10/03/2019 [facility] 5-6.25 mg 09/26/2019 12:00:00 AM EST tablet 30 TAKE 1 TABLET BY MOUTH EVERY DAY TAKE 1 TABLET BY MOUTH EVERY DAY SOLD: 09/27/2019 [facility] Acetaminophen 500 MG Oral Tablet Acetaminophen Extra Strengt h 09/25/2019 12:00:00 AM EST ORAL active M EDENT ([facility] 5 mg 09/21/2019 12:00:00 AM EST tablet 21 TAKE 2 TABLETS BY MOUTH DAILY FOR 1 WEEK THEN 1 TABLET DAILY FOR 1 WEEK TAKE 2 TABLETS BY MOUTH DAILY FOR 1 WEEK THEN 1 TABLET DAILY FOR 1 WEEK SOLD: 09/21/2019 [facility] 30 mg 08/28/2019 12:00:00 AM EST capsule,delayed release (DR/EC) 30 TAKE 1 CAPSULE BY MOUTH EVERY DAY TAKE 1 CAPSULE BY MOUTH EVERY DAY SOLD: 08/28/2019 [facility] 5-6.25 mg 08/28/2019 12:00:00 AM EST tablet 30 TAKE 1 TABLET BY MOUTH EVERY DAY TAKE 1 TABLET BY MOUTH EVERY DAY SOLD: 08/28/2019 [facility] Bisoprolol Fumarate 5 MG / Hydrochlorothiazide 6.25 MG Oral Tablet Bisoprolol Fumarate/Hydrochlorothiazide 08/28/2019 12:00:00 AM EST ORAL active [facility] ([facility] duloxetine 30 MG Delayed Release Oral Capsule Duloxetine HCL 08/28/2019 12:00:00 AM EST ORAL completed [facility] ([facility] zonisamide 25 MG Oral Capsule Zonisamide 08/24/2019 12:00:00 AM EST ORAL completed [facility] ([facility] ) zonisamide 50 MG Oral Capsule Zonisamide 08/24/2019 12:00:00 AM EST ORAL active [facility] ([facility] ) fluorescein 10 % injection 500 mg [id number] 08/17/2019 04:00:[address] 500 mg Intravenous completed Visual field def ect of left eyeHigh risk medication useOther systemic lupus erythematosus with glomerular disease 500 mg (5 mL), Intravenous, Once, Tue08/17/19 at 1600, For 1 dose [facility] Visual field defect of left eye High risk medication use Other systemic lupus erythematosus with glomerular disease Medication administered onsite Tropicamide 10 MG/ML Ophthalmic Solution tropicamide (MYDRIACYL) 1 % ophthalmic solution 1 drop tropicamide (MYDRIACYL) 1 % ophthalmic solution 1 drop 08/17/2019 03:45:00 PM EST 1 [drp] Both Eyes completed 1 drop, Both Eyes, Once, Tue08/17/19 at 1545, For 1 dose [facility] Medication administered onsite Phenylephrine Hydrochloride 25 MG/ML Oph thalmic Solution phenylephrine (MYDFRIN) 2.5 % ophthalmic solution 1 drop phenylephrine (MYDFRIN) 2.5 % ophthalmic solution 1 drop 08/17/2019 03:45:00 PM EST 1 [drp] Both Eyes completed 1 drop, Both Eyes, Once, Tue08/17/19 at 1545, For 1 do se [facility] Medication administered onsite fluorescein-benoxinate (FLURATE) 0.25-0.4 % ophthalmic solution 1 drop [id number] 08/17/2019 03:45:00 PM EST 1 [drp] Both Eyes c ompleted 1 drop, Both Eyes, Once, Tue08/17/19 at 1545, For 1 dose [facility] Medication administered onsite 5 mg 08/06/2019 12:00:00 AM EST tablet 21 TAKE 2 TABLETS BY MOUTH DAILY FOR 1 WEEK THEN 1 TABLET ONCE A DAY FOR 1 WEEK TAKE 2 TABLETS BY MOUTH DAILY FOR 1 WEEK THEN 1 TABLET ONCE A DAY FOR 1 WEEK SOLD: 08/06/2019 [facility] 10 mEq 07/30/2019 12:00:00 AM EST tablet extended release 192 1 TAB.BY MOUTH 2X/DAY EXCEPT MON.AND FRI. TAKE 1 TAB. BY MOUTH 3X/DAY 1 TAB.BY MOUTH 2X/DAY EXCEPT MON.AND FRI. TAKE 1 TAB. BY MOUTH 3X/DAY SOLD: 08/02/2019 [facility] 40 mg 07/30/2019 12:00:00 AM EST tablet 30 TAKE ONE TABLET BY MOUTH EVERY EVENING TAKE ONE TABLET BY MOUTH EVERY EVENING SOLD: 09/02/2019 [facility] 40 mg 07/30/2019 12:00:00 AM EST tablet,delayed release (DR/EC) 90 TAKE ONE TABLET BY MOUTH EVERY DAY TAKE ONE TABLET BY MOUTH EVERY DAY SOLD: 08/02/2019 [facility] Famotidine 40 MG Oral Tablet FAMOTIDINE 07/30/2019 12:00:00 AM EST tab let 30 TAKE ONE TABLET BY MOUTH EVERY EVENING TAKE ONE TABLET BY MOUTH EVERY EVENING SOLD: 07/17/2020 [facility] 40 mg 07/30/2019 12:00:00 AM EST tablet 30 TAKE ONE TABLET BY MOUTH EVERY EVENING TAKE ONE TABLET BY MOUTH EVERY EVENING SOLD: 08/02/2019 [facility] 5 mg 07/17/2019 12:00:00 AM EST tablet 180 TAKE 2 TABLETS BY MOUTH DAILY TAKE 2 TABLETS BY MOUTH DAILY SOLD: 09/27/2019 [facility] 5 mg 07/17/2019 12:00:00 AM EST tablet 180 TAKE 2 TABLETS BY MOUTH DAILY TAKE 2 TABLETS BY MOUTH DAILY SOLD: 12/24/2019 [facility] 5 mg 07/17/2019 12:00:00 AM EST tablet 180 TAKE 2 TABLETS BY MOUTH DAILY TAKE 2 TABLETS BY MOUTH DAILY SOLD: 03/22/2020 [facility] 5 mg 07/17/2019 12:00:00 AM EST tablet 180 TAKE 2 TABLETS BY MOUTH DAILY TAKE 2 TABLETS BY MOUTH DAILY SOLD: 07/20/2019 [facility] Nystatin 498779 UNT/ML Topical Cream Nys tatin [id number] UNIT/GM External Cream (MYCOSTATIN) Nystatin 561962 UNIT/GM External Cream (MYCOSTATIN) 12:00:00 AM EST active APPLY TO AFFECTED AREA S TWO TIMES A DAY UNTIL RASH RESOLVES [facility] 100,000 unit/gram 07/16/2019 12:00:00 AM EST cream 60 APPLY TO AFFECTED AREA(S) TWO TIMES A DAY UNTIL RASH RESOLVES APPLY TO AFFECTED AREA(S) TWO TIMES A DAY UNTIL RASH RESOLVES SOLD: 07/16/2019 [facility] 500 mg 07/16/2019 12:00:00 AM EST capsule 42 TAKE ONE CAPSULE BY MOUTH THREE TIMES A DAY TAKE ONE CAPSULE BY MOUTH THREE TIMES A DAY SOLD: 07/16/2019 [facility] Hydrochlorothiazide 12.5 MG / Lisinopril 10 MG Oral Ta blet 10-12.5 mg LISINOPRIL/HYDROCHLOROTHIAZIDE 07/06/2019 12:00:00 AM EST tablet 90 TAKE ONE TABLET BY MOUTH EVERY DAY TAKE ONE TABLET BY MOUTH EVERY DAY SOLD: 07/11/2019 [facility] 100 mcg 07/06/2019 12:00:00 AM EST tablet 30 TAKE ONE TABLET BY MOUTH EVERY MORNING TAKE ONE TABLET BY MOUTH EVERY MORNING SOLD: 07/11/2019 [facility] 100 mcg 07/06/2019 12:00:00 AM EST tablet 30 TAKE ONE TABLET BY MOUTH EVERY MORNING TAKE ONE TABLET BY MOUTH EVERY MORNING SOLD: 09/27/2019 [facility] 100 mcg 07/06/2019 12:00:00 AM EST tablet 30 TAKE ONE TABLET BY MOUTH EVERY MORNING TAKE ONE TABLET BY MOUTH EVERY MORNING SOLD: 04/27/2020 [facility] 25 mcg (1,000 unit) 07/02/2019 12:00:00 AM EST tablet 30 TAKE 1 TABLET BY MOUTH ONCE A DAY TAKE 1 TABLET BY MOUTH ONCE A DAY SOLD: 09/26/2019 [facility] 25 mcg (1,000 unit) 07/02/2019 12:00:00 AM EST tablet 30 TAKE 1 TABLET BY MOUTH ONCE A DAY TAKE 1 TABLET BY MOUTH ONCE A DAY SOLD: 09/02/2019 [facility] 25 mcg (1,000 unit) 07/02/2019 12:00:00 AM EST tablet 30 TAKE 1 TABLET BY MOUTH ONCE A DAY TAKE 1 TABLET BY MOUTH ONCE A DAY SOLD: 08/02/2019 [facility] 25 mcg (1,000 unit) 07/02/2019 12:00:00 AM EST tablet 30 TAKE 1 TABLET BY MOUTH ONCE A DAY TAKE 1 TABLET BY MOUTH ONCE A DAY SOLD: 07/03/2019 [facility] 500 mg 06/29/2019 12:00:00 AM EST tablet 30 TAKE ONE TO TWO TABLETS BY MOUTH FOUR TIMES A DAY TAKE ONE TO TWO TABLETS BY MOUTH FOUR TIMES A DAY SOLD : 08/14/2019 [facility] 500 mg 06/29/2019 12:00:00 AM EST tablet 30 TAKE ONE TO TWO TABLETS BY MOUTH FOUR TIMES A DAY TAKE ONE TO TWO TABLETS BY MOUTH FOUR TIMES A DAY SOLD : 06/29/2019 [facility] Methocarbamol 500 MG Oral Tablet Methocarbamol 06/29/2019 12:00:00 AM EST ORAL completed [facility] ([facility] Hydrochlorothiazide 12.5 MG / Lisinopril 10 MG Oral Ta blet Lisinopril-Hydrochlorothiazide 06/14/2019 12:00:00 AM EST OR AL completed [facility] ([facility] 2.5 mg 05/14/2019 12:00:00 AM EDT tablet 30 TAKE 1 TABLET BY MOUTH ONCE A DAY TAKE 1 TABLET BY MOUTH ONCE A DAY SOLD: 09/21/2019 [facility] 2.5 mg 05/14/2019 12:00:00 AM EDT tablet 30 TAKE 1 TABLET BY MOUTH ONCE A DAY TAKE 1 TABLET BY MOUTH ONCE A DAY SOLD: 10/18/2019 [facility] 2.5 mg 05/14/2019 12:00:00 AM EDT tablet 30 TAKE 1 TABLET BY MOUTH ONCE A DAY TAKE 1 TABLET BY MOUTH ONCE A DAY SOLD: 11/17/2019 [facility] 2.5 mg 05/14/2019 12:00:00 AM EDT tablet 30 TAKE 1 TABLET BY MOUTH ONCE A DAY TAKE 1 TABLET BY MOUTH ONCE A DAY SOLD: 08/14/2019 [facility] 2.5 mg 05/14/2019 12:00:00 AM EDT tablet 30 TAKE 1 TABLET BY MOUTH ONCE A DAY TAKE 1 TABLET BY MOUTH ONCE A DAY SOLD: 07/16/2019 [facility] 40 mg 05/03/2019 12:00:00 AM EDT tablet 30 TAKE ONE TABLET BY MOUTH EVERY EVENING TAKE ONE TABLET BY MOUTH EVERY EVENING SOLD: 07/03/2019 [facility] benzonatate 100 MG Oral Capsule Benzonatate 04/30/2019 12:00:00 AM EDT ORAL completed [facility] ([facility] 5 mg 04/26/2019 12:00:00 AM EDT tablet 60 TAKE TWO TABLETS BY MOUTH EVERY DAY TAKE TWO TABLETS BY MOUTH EVERY DAY SOLD: 06/25/2019 [facility] Hydroxychloroquine Sulfate 200 MG Oral Tablet HYDROXYCHLOROQ UINE SULFATE 04/19/2019 12:00:00 AM EDT tablet 180 TAKE ONE TABLET BY MOUTH TWICE A DAY WITH FOOD OR MILK TAKE ONE TABLET BY MOUTH TWICE A DAY WITH FOOD OR MILK SOLD: 10/18/2019 [facility] Hydroxychloroquine Sulfate 200 MG Oral Tablet HYDROXYCHLOROQ UINE SULFATE 04/19/2019 12:00:00 AM EDT tablet 180 TAKE ONE TABLET BY MOUTH TWICE A DAY WITH FOOD OR MILK TAKE ONE TABLET BY MOUTH TWICE A DAY WITH FOOD OR MILK SOLD: 01/12/2020 [facility] 200 mg 04/19/2019 12:00:00 AM EDT tablet 180 TAKE ONE TABLET BY MOUTH TWICE A DAY WITH FOOD OR MILK TAKE ONE TABLET BY MOUTH TWICE A DAY WITH FOOD OR MILK SOLD: 07/16/2019 [facility] 1 mg 02/03/2019 12:00:00 AM EDT tablet 360 TAKE FOUR TABLETS BY MOUTH EVERY DAY TAKE FOUR TABLETS BY MOUTH EVERY DAY SOLD: 07/30/2019 [facility] 1 mg 02/03/2019 12:00:00 AM EDT tablet 360 TAKE FOUR TABLETS BY MOUTH EVERY DAY TAKE FOUR TABLETS BY MOUTH EVERY DAY SOLD: 11/01/2019 [facility] duloxetine 30 MG Delayed Release Oral Ca psule duloxetine 30 mg capsule,delayed release duloxetine 30 mg capsule,delayed release completed duloxetine 30 MG Delayed Release Oral Capsule [facility]) Nystatin [id number] UNT/ML Topical Cream nystatin 100,000 unit/gram topical cream nystatin 100,000 unit/gram topical cream completed nystatin [id number] UNT/ML Topical Cream [facility]) zonisamide 50 MG Oral Capsule zonisamide 50 mg capsule zonis amide 50 mg capsule completed zonisamide 50 MG Oral Capsule [facility] ([facility]) Prednisone 10 MG Oral Tablet prednisone 10 mg tablet prednisone 10 mg tablet completed prednisone 10 MG Oral Tablet [facility] ([facility]) Prednisone 2.5 MG Oral Tablet prednisone 2.5 mg tablet predn isone 2.5 mg tablet completed prednisone 2.5 MG Oral Tablet [facility] ([facility]) zonisamide 25 MG Oral Capsule zonisamide 25 mg capsule zonis amide 25 mg capsule completed zonisamide 25 MG Oral Capsule [facility] ([facility]) zonisamide 50 MG Oral Capsule zonisamide 50 mg capsule zonis amide 50 mg capsule completed zonisamide 50 MG Oral Capsule [facility] ([facility]) duloxetine 30 MG Delayed Release Oral Ca psule duloxetine 30 mg capsule,delayed release duloxetine 30 mg capsule,delayed release completed duloxetine 30 MG Delayed Release Oral Capsule [place] ([facility]) zonisamide 50 MG Oral Capsule zonisamide 50 mg capsule zonis amide 50 mg capsule completed zonisamide 50 MG Oral Capsule [facility] ([facility]) Baclofen 5 MG Oral Tablet baclofen 5 mg tablet baclofen 5 mg tablet completed baclofen 5 MG Oral Tablet [facility] ([facility]) Benlysta 200 mg/mL subcutaneous auto-injector [id number] completed 1 ML belimumab 200 MG/ML Auto-Injector [Benlysta] [facility] ([facility]) Suprep Bowel Prep Kit 17.5 gram-3.13 gram-1.6 gram oral solution [id number] 5 completed Suprep Bowel Pr ep Kit 17.5 gram-3.13 gram-1.6 gram oral solution [facility] ([facility]) Baclofen 10 MG Oral Tablet baclofen 10 mg tablet baclofen 10 mg tablet completed baclofen 10 MG Oral Table t [facility] ([facility]) Citalopram 20 MG Oral Tablet citalopram 20 mg tablet citalopram 20 mg tablet completed citalopram 20 MG Oral Tablet [place] ([facility]) Alprazolam 0.5 MG Oral Tablet alprazolam 0.5 mg tablet alpra zolam 0.5 mg tablet completed alprazolam 0.5 MG Oral Tablet [place] ([facility]) Prednisone 10 MG Oral Tablet prednisone 10 mg tablet prednisone 10 mg tablet completed prednisone 10 MG Oral Tablet [place] ([facility]) Amoxicillin 500 MG Oral Capsule amoxicillin 500 mg cap sara amoxicillin 500 mg capsule completed amoxicillin 50 0 MG Oral Capsule [place] ([facility]) zonisamide 50 MG Oral Capsule zonisamide 50 mg capsule zonis amide 50 mg capsule completed zonisamide 50 MG Oral Capsule [place] ([facility]) Suprep Bowel Prep Kit 17.5 gram-3.13 gram-1.6 gram oral solution [id number] 5 completed Suprep Bowel Pr ep Kit 17.5 gram-3.13 gram-1.6 gram oral solution [facility]) Alprazolam 0.5 MG Oral Tablet alprazolam 0.5 mg tablet alpra zolam 0.5 mg tablet completed alprazolam 0.5 MG Oral Tablet [facility] ([facility]) Amoxicillin 500 MG Oral Capsule amoxicillin 500 mg cap sara amoxicillin 500 mg capsule completed amoxicillin 50 0 MG Oral Capsule [facility] ([facility]) mycophenolate mofetil 500 MG Oral Tablet [Cellcept] Ce llCept 500 mg tablet CellCept 500 mg tablet completed mycophenolate mofetil 500 MG Oral Tablet [Cellcept] [facility] ([facility]) Cephalexin 500 MG Oral Capsule cephalexin 500 mg capsu le cephalexin 500 mg capsule completed cephalexin 500 MG Oral Capsule [facility] ([facility]) Baclofen 10 MG Oral Tablet baclofen 10 mg tablet baclofen 10 mg tablet completed baclofen 10 MG Oral Table t [facility] ([facility]) Cephalexin 500 MG Oral Capsule cephalexin 500 mg capsu le cephalexin 500 mg capsule completed cephalexin 500 MG Oral Capsule [facility] ([facility]) Alprazolam 0.5 MG Oral Tablet alprazolam 0.5 mg tablet alpra zolam 0.5 mg tablet completed alprazolam 0.5 MG Oral Tablet [facility] ([facility]) Alprazolam 0.5 MG Oral Tablet alprazolam 0.5 mg tablet alpra zolam 0.5 mg tablet completed alprazolam 0.5 MG Oral Tablet [facility] ([facility]) Hydrochlorothiazide 12.5 MG / Lisinopril 10 MG Oral Tablet lisinopril 10 mg- hydrochlorothiazide 12.5 mg tablet lisinopril 10 mg-hydrochlorothiazide 12. 5 mg tablet completed hydroch lorothiazide 12.5 MG / lisinopril 10 MG Oral Tablet [facility] ([facility]) zonisamide 25 MG Oral Capsule zonisamide 25 mg capsule zonis amide 25 mg capsule completed zonisamide 25 MG Oral Capsule [facility] ([facility]) mycophenolate mofetil 500 MG Oral Tablet [Cellcept] Ce llCept 500 mg tablet CellCept 500 mg tablet completed mycophenolate mofetil 500 MG Oral Tablet [Cellcept] [facility] ([facility]) Prednisone 10 MG Oral Tablet prednisone 10 mg tablet prednisone 10 mg tablet completed prednisone 10 MG Oral Tablet [place] ([facility]) Benlysta 200 mg/mL subcutaneous auto-injector [id number] completed 1 ML belimumab 200 MG/ML Auto-Injector [Benlysta] [place] ([facility]) Alprazolam 0.5 MG Oral Tablet alprazolam 0.5 mg tablet alpra zolam 0.5 mg tablet completed alprazolam 0.5 MG Oral Tablet [place] ([facility]) mycophenolate mofetil 500 MG Oral Tablet [Cellcept] Ce llCept 500 mg tablet CellCept 500 mg tablet completed mycophenolate mofetil 500 MG Oral Tablet [Cellcept] [facility]) Hydrochlorothiazide 12.5 MG / Lisinopril 10 MG Oral Tablet lisinopril 10 mg- hydrochlorothiazide 12.5 mg tablet lisinopril 10 mg-hydrochlorothiazide 12. 5 mg tablet completed hydroch lorothiazide 12.5 MG / lisinopril 10 MG Oral Tablet [facility]) duloxetine 30 MG Delayed Release Oral Ca psule duloxetine 30 mg capsule,delayed release duloxetine 30 mg capsule,delayed release completed duloxetine 30 MG Delayed Release Oral Capsule [facility]) Baclofen 5 MG Oral Tablet baclofen 5 mg tablet baclofen 5 mg tablet completed baclofen 5 MG Oral Tablet [facility]) Baclofen 10 MG Oral Tablet baclofen 10 mg tablet baclofen 10 mg tablet completed baclofen 10 MG Oral Table t [facility]) Amoxicillin 500 MG Oral Capsule amoxicillin 500 mg cap sara amoxicillin 500 mg capsule completed amoxicillin 50 0 MG Oral Capsule [place] ([facility]) Amoxicillin 500 MG Oral Capsule amoxicillin 500 mg cap sara amoxicillin 500 mg capsule completed amoxicillin 50 0 MG Oral Capsule [place] ([facility]) Citalopram 20 MG Oral Tablet citalopram 20 mg tablet citalopram 20 mg tablet completed citalopram 20 MG Oral Tablet [facility]) Hydrochlorothiazide 12.5 MG / Lisinopril 10 MG Oral Tablet lisinopril 10 mg- hydrochlorothiazide 12.5 mg tablet lisinopril 10 mg-hydrochlorothiazide 12. 5 mg tablet completed hydroch lorothiazide 12.5 MG / lisinopril 10 MG Oral Tablet [facility] ([facility]) zonisamide 25 MG Oral Capsule zonisamide 25 mg capsule zonis amide 25 mg capsule completed zonisamide 25 MG Oral Capsule [place] ([facility]) Citalopram 20 MG Oral Tablet citalopram 20 mg tablet citalopram 20 mg tablet completed citalopram 20 MG Oral Tablet [facility] ([facility]) Baclofen 5 MG Oral Tablet baclofen 5 mg tablet baclofen 5 mg tablet completed baclofen 5 MG Oral Tablet [facility] ([facility]) Prednisone 5 MG Oral Tablet prednisone 5 mg tablet prednisone 5 mg ta blet completed prednisone 5 MG Oral Tablet [place] ([facility]) duloxetine 30 MG Delayed Release Oral Ca psule duloxetine 30 mg capsule,delayed release duloxetine 30 mg capsule,delayed release completed duloxetine 30 MG Delayed Release Oral Capsule [place] ([facility]) Hydrochlorothiazide 12.5 MG / Lisinopril 10 MG Oral Tablet lisinopril 10 mg- hydrochlorothiazide 12.5 mg tablet lisinopril 10 mg-hydrochlorothiazide 12. 5 mg tablet completed hydroch lorothiazide 12.5 MG / lisinopril 10 MG Oral Tablet [place] ([facility]) Baclofen 10 MG Oral Tablet baclofen 10 mg tablet baclofen 10 mg tablet completed baclofen 10 MG Oral Table t [place] ([facility]) Prednisone 10 MG Oral Tablet prednisone 10 mg tablet prednisone 10 mg tablet completed prednisone 10 MG Oral Tablet [place] ([facility]) duloxetine 30 MG Delayed Release Oral Ca psule duloxetine 30 mg capsule,delayed release duloxetine 30 mg capsule,delayed release completed duloxetine 30 MG Delayed Release Oral Capsule [place] ([facility]) zonisamide 25 MG Oral Capsule zonisamide 25 mg capsule zonis amide 25 mg capsule completed zonisamide 25 MG Oral Capsule [place] ([facility]) Nystatin 111386 UNT/ML Topical Cream nystatin 100,000 unit/gram topical cream nystatin 100,000 unit/gram topical cream completed nystatin 108473 UNT/ML Topical Cream [place] ([facility]) Baclofen 10 MG Oral Tablet baclofen 10 mg tablet baclofen 10 mg tablet completed baclofen 10 MG Oral Table t [facility] ([facility]) zonisamide 25 MG Oral Capsule zonisamide 25 mg capsule zonis amide 25 mg capsule completed zonisamide 25 MG Oral Capsule [place] ([facility]) Cephalexin 500 MG Oral Capsule cephalexin 500 mg capsu le cephalexin 500 mg capsule completed cephalexin 500 MG Oral Capsule [place] ([facility]) Citalopram 20 MG Oral Tablet citalopram 20 mg tablet citalopram 20 mg tablet completed citalopram 20 MG Oral Tablet [place] ([facility]) Prednisone 10 MG Oral Tablet prednisone 10 mg tablet prednisone 10 mg tablet completed prednisone 10 MG Oral Tablet [facility]) pantoprazole 40 MG Delayed Release Oral Tablet pantoprazole 40 mg tablet,delayed release pantoprazole 40 mg tablet,delayed release completed pantoprazole 40 MG Delayed Release Oral Tablet [place] ([facility]) Prednisone 10 MG Oral Tablet prednisone 10 mg tablet prednisone 10 mg tablet completed prednisone 10 MG Oral Tablet [place] ([facility]) Prednisone 5 MG Oral Tablet prednisone 5 mg tablet prednisone 5 mg ta blet completed prednisone 5 MG Oral Tablet [place] ([facility]) Suprep Bowel Prep Kit 17.5 gram-3.13 gram-1.6 gram oral solution 72331 5 completed Suprep Bowel Pr ep Kit 17.5 gram-3.13 gram-1.6 gram oral solution [facility]) duloxetine 30 MG Delayed Release Oral Ca psule duloxetine 30 mg capsule,delayed release duloxetine 30 mg capsule,delayed release completed duloxetine 30 MG Delayed Release Oral Capsule [facility]) Prednisone 5 MG Oral Tablet prednisone 5 mg tablet prednisone 5 mg ta blet completed prednisone 5 MG Oral Tablet [place] ([facility]) Amoxicillin 500 MG Oral Capsule amoxicillin 500 mg cap sara amoxicillin 500 mg capsule completed amoxicillin 50 0 MG Oral Capsule [facility]) pantoprazole 40 MG Delayed Release Oral Tablet pantoprazole 40 mg tablet,delayed release pantoprazole 40 mg tablet,delayed release completed pantoprazole 40 MG Delayed Release Oral Tablet [place] ([facility]) Suprep Bowel Prep Kit 17.5 gram-3.13 gram-1.6 gram oral solution 46187 5 completed Suprep Bowel Pr ep Kit 17.5 gram-3.13 gram-1.6 gram oral solution [facility] ([facility]) Nystatin 009598 UNT/ML Topical Cream nystatin 100,000 unit/gram topical cream nystatin 100,000 unit/gram topical cream completed nystatin [id number] UNT/ML Topical Cream [facility] ([facility]) Baclofen 10 MG Oral Tablet baclofen 10 mg tablet baclofen 10 mg tablet completed baclofen 10 MG Oral Table t [facility] ([facility]) Benlysta 200 mg/mL subcutaneous auto-injector [id number] completed 1 ML belimumab 200 MG/ML Auto-Injector [Benlysta] [facility] ([facility]) Hydrochlorothiazide 12.5 MG / Lisinopril 10 MG Oral Tablet lisinopril 10 mg- hydrochlorothiazide 12.5 mg tablet lisinopril 10 mg-hydrochlorothiazide 12. 5 mg tablet completed hydroch lorothiazide 12.5 MG / lisinopril 10 MG Oral Tablet [facility] ([facility]) Amoxicillin 500 MG Oral Capsule amoxicillin 500 mg cap sara amoxicillin 500 mg capsule completed amoxicillin 50 0 MG Oral Capsule [place] ([facility]) Citalopram 20 MG Oral Tablet citalopram 20 mg tablet citalopram 20 mg tablet completed citalopram 20 MG Oral Tablet [place] ([facility]) Hydrochlorothiazide 12.5 MG / Lisinopril 10 MG Oral Tablet lisinopril 10 mg- hydrochlorothiazide 12.5 mg tablet lisinopril 10 mg-hydrochlorothiazide 12. 5 mg tablet completed hydroch lorothiazide 12.5 MG / lisinopril 10 MG Oral Tablet [facility] ([facility]) mycophenolate mofetil 500 MG Oral Tablet [Cellcept] Ce llCept 500 mg tablet CellCept 500 mg tablet completed mycophenolate mofetil 500 MG Oral Tablet [Cellcept] [facility] ([facility]) Nystatin 016774 UNT/ML Topical Cream nystatin 100,000 unit/gram topical cream nystatin 100,000 unit/gram topical cream completed nystatin 900278 UNT/ML Topical Cream [facility] ([facility]) Hydrochlorothiazide 12.5 MG / Lisinopril 10 MG Oral Tablet lisinopril 10 mg- hydrochlorothiazide 12.5 mg tablet lisinopril 10 mg-hydrochlorothiazide 12. 5 mg tablet completed hydroch lorothiazide 12.5 MG / lisinopril 10 MG Oral Tablet [facility] ([facility]) zonisamide 50 MG Oral Capsule zonisamide 50 mg capsule zonis amide 50 mg capsule completed zonisamide 50 MG Oral Capsule [facility] ([facility]) Benlysta 200 mg/mL subcutaneous auto-injector [id number] completed 1 ML belimumab 200 MG/ML Auto-Injector [Benlysta] [facility] ([facility]) Suprep Bowel Prep Kit 17.5 gram-3.13 gram-1.6 gram oral solution 84114 5 completed Suprep Bowel Pr ep Kit 17.5 gram-3.13 gram-1.6 gram oral solution [facility] ([facility]) Prednisone 2.5 MG Oral Tablet prednisone 2.5 mg tablet predn isone 2.5 mg tablet completed prednisone 2.5 MG Oral Tablet [place] ([facility]) zonisamide 50 MG Oral Capsule zonisamide 50 mg capsule zonis amide 50 mg capsule completed zonisamide 50 MG Oral Capsule [facility] ([facility]) Suprep Bowel Prep Kit 17.5 gram-3.13 gram-1.6 gram oral solution 86542 5 completed Suprep Bowel Pr ep Kit 17.5 gram-3.13 gram-1.6 gram oral solution [facility] ([facility]) Suprep Bowel Prep Kit 17.5 gram-3.13 gram-1.6 gram oral solution 17346 5 completed Suprep Bowel Pr ep Kit 17.5 gram-3.13 gram-1.6 gram oral solution [facility] ([facility]) Suprep Bowel Prep Kit 17.5 gram-3.13 gram-1.6 gram oral solution 08554 5 completed Suprep Bowel Pr ep Kit 17.5 gram-3.13 gram-1.6 gram oral solution [facility] ([facility]) zonisamide 50 MG Oral Capsule zonisamide 50 mg capsule zonis amide 50 mg capsule completed zonisamide 50 MG Oral Capsule [facility] ([facility]) Cephalexin 500 MG Oral Capsule cephalexin 500 mg capsu le cephalexin 500 mg capsule completed cephalexin 500 MG Oral Capsule [facility] ([facility]) Nystatin 391905 UNT/ML Topical Cream nystatin 100,000 unit/gram topical cream nystatin 100,000 unit/gram topical cream completed nystatin 451960 UNT/ML Topical Cream [facility] ([facility]) mycophenolate mofetil 500 MG Oral Tablet [Cellcept] Ce llCept 500 mg tablet CellCept 500 mg tablet completed mycophenolate mofetil 500 MG Oral Tablet [Cellcept] [facility] ([facility]) Amoxicillin 500 MG Oral Capsule amoxicillin 500 mg cap sara amoxicillin 500 mg capsule completed amoxicillin 50 0 MG Oral Capsule [facility] ([facility]) zonisamide 25 MG Oral Capsule zonisamide 25 mg capsule zonis amide 25 mg capsule completed zonisamide 25 MG Oral Capsule [facility] ([facility]) mycophenolate mofetil 500 MG Oral Tablet [Cellcept] Ce llCept 500 mg tablet CellCept 500 mg tablet completed mycophenolate mofetil 500 MG Oral Tablet [Cellcept] [facility] ([facility]) Prednisone 5 MG Oral Tablet prednisone 5 mg tablet prednisone 5 mg ta blet completed prednisone 5 MG Oral Tablet [facility] ([facility]) Prednisone 2.5 MG Oral Tablet prednisone 2.5 mg tablet predn isone 2.5 mg tablet completed prednisone 2.5 MG Oral Tablet [facility] ([facility]) zonisamide 25 MG Oral Capsule zonisamide 25 mg capsule zonis amide 25 mg capsule completed zonisamide 25 MG Oral Capsule [place] ([facility]) Cephalexin 500 MG Oral Capsule cephalexin 500 mg capsu le cephalexin 500 mg capsule completed cephalexin 500 MG Oral Capsule [facility] ([facility]) mycophenolate mofetil 500 MG Oral Tablet [Cellcept] Ce llCept 500 mg tablet CellCept 500 mg tablet completed mycophenolate mofetil 500 MG Oral Tablet [Cellcept] [facility] ([facility]) Citalopram 20 MG Oral Tablet citalopram 20 mg tablet citalopram 20 mg tablet completed citalopram 20 MG Oral Tablet [facility] ([facility]) zonisamide 50 MG Oral Capsule zonisamide 50 mg capsule zonis amide 50 mg capsule completed zonisamide 50 MG Oral Capsule [facility] ([facility]) zonisamide 25 MG Oral Capsule zonisamide 25 mg capsule zonis amide 25 mg capsule completed zonisamide 25 MG Oral Capsule [facility] ([facility]) Baclofen 10 MG Oral Tablet baclofen 10 mg tablet baclofen 10 mg tablet completed baclofen 10 MG Oral Table t [facility] ([facility]) Cephalexin 500 MG Oral Capsule cephalexin 500 mg capsu le cephalexin 500 mg capsule completed cephalexin 500 MG Oral Capsule [facility] ([facility]) Suprep Bowel Prep Kit 17.5 gram-3.13 gram-1.6 gram oral solution 62813 5 completed Suprep Bowel Pr ep Kit 17.5 gram-3.13 gram-1.6 gram oral solution [facility] ([facility]) Baclofen 5 MG Oral Tablet baclofen 5 mg tablet baclofen 5 mg tablet completed baclofen 5 MG Oral Tablet [facility] ([facility]) Baclofen 5 MG Oral Tablet baclofen 5 mg tablet baclofen 5 mg tablet completed baclofen 5 MG Oral Tablet [place] ([facility]) Prednisone 10 MG Oral Tablet prednisone 10 mg tablet prednisone 10 mg tablet completed prednisone 10 MG Oral Tablet [facility] ([facility]) Cephalexin 500 MG Oral Capsule cephalexin 500 mg capsu le cephalexin 500 mg capsule completed cephalexin 500 MG Oral Capsule [place] ([facility]) mycophenolate mofetil 500 MG Oral Tablet [Cellcept] Ce llCept 500 mg tablet CellCept 500 mg tablet completed mycophenolate mofetil 500 MG Oral Tablet [Cellcept] [place] ([facility]) pantoprazole 40 MG Delayed Release Oral Tablet pantoprazole 40 mg tablet,delayed release pantoprazole 40 mg tablet,delayed release completed pantoprazole 40 MG Delayed Release Oral Tablet [place] ([facility]) Prednisone 2.5 MG Oral Tablet prednisone 2.5 mg tablet predn isone 2.5 mg tablet completed prednisone 2.5 MG Oral Tablet [place] ([facility]) zonisamide 50 MG Oral Capsule zonisamide 50 mg capsule zonis amide 50 mg capsule completed zonisamide 50 MG Oral Capsule [place] ([facility]) mycophenolate mofetil 500 MG Oral Tablet [Cellcept] Ce llCept 500 mg tablet CellCept 500 mg tablet completed mycophenolate mofetil 500 MG Oral Tablet [Cellcept] [place] ([facility]) Benlysta 200 mg/mL subcutaneous auto-injector [id number] completed 1 ML belimumab 200 MG/ML Auto-Injector [Benlysta] [place] ([facility]) Hydrochlorothiazide 12.5 MG / Lisinopril 10 MG Oral Tablet lisinopril 10 mg- hydrochlorothiazide 12.5 mg tablet lisinopril 10 mg-hydrochlorothiazide 12. 5 mg tablet completed hydroch lorothiazide 12.5 MG / lisinopril 10 MG Oral Tablet [place] ([facility]) Baclofen 5 MG Oral Tablet baclofen 5 mg tablet baclofen 5 mg tablet completed baclofen 5 MG Oral Tablet [place] ([facility]) pantoprazole 40 MG Delayed Release Oral Tablet pantoprazole 40 mg tablet,delayed release pantoprazole 40 mg tablet,delayed release completed pantoprazole 40 MG Delayed Release Oral Tablet [place] ([facility]) duloxetine 30 MG Delayed Release Oral Ca psule duloxetine 30 mg capsule,delayed release duloxetine 30 mg capsule,delayed release completed duloxetine 30 MG Delayed Release Oral Capsule [place] ([facility]) Prednisone 2.5 MG Oral Tablet prednisone 2.5 mg tablet predn isone 2.5 mg tablet completed prednisone 2.5 MG Oral Tablet [place] ([facility]) pantoprazole 40 MG Delayed Release Oral Tablet pantoprazole 40 mg tablet,delayed release pantoprazole 40 mg tablet,delayed release completed pantoprazole 40 MG Delayed Release Oral Tablet [place] ([facility]) Prednisone 2.5 MG Oral Tablet prednisone 2.5 mg tablet predn isone 2.5 mg tablet completed prednisone 2.5 MG Oral Tablet [place] ([facility]) Nystatin [id number] UNT/ML Topical Cream nystatin 100,000 unit/gram topical cream nystatin 100,000 unit/gram topical cream completed nystatin [id number] UNT/ML Topical Cream [place] ([facility]) Cephalexin 500 MG Oral Capsule cephalexin 500 mg capsu le cephalexin 500 mg capsule completed cephalexin 500 MG Oral Capsule [place] ([facility]) Prednisone 2.5 MG Oral Tablet prednisone 2.5 mg tablet predn isone 2.5 mg tablet completed prednisone 2.5 MG Oral Tablet [place] ([facility]) duloxetine 30 MG Delayed Release Oral Ca psule duloxetine 30 mg capsule,delayed release duloxetine 30 mg capsule,delayed release completed duloxetine 30 MG Delayed Release Oral Capsule [place] ([facility]) Alprazolam 0.5 MG Oral Tablet alprazolam 0.5 mg tablet alpra zolam 0.5 mg tablet completed alprazolam 0.5 MG Oral Tablet [place] ([facility]) zonisamide 25 MG Oral Capsule zonisamide 25 mg capsule zonis amide 25 mg capsule completed zonisamide 25 MG Oral Capsule [place] ([facility]) Alprazolam 0.5 MG Oral Tablet alprazolam 0.5 mg tablet alpra zolam 0.5 mg tablet completed alprazolam 0.5 MG Oral Tablet [place] ([facility]) Amoxicillin 500 MG Oral Capsule amoxicillin 500 mg cap sara amoxicillin 500 mg capsule completed amoxicillin 50 0 MG Oral Capsule [place] ([facility]) Prednisone 2.5 MG Oral Tablet prednisone 2.5 mg tablet predn isone 2.5 mg tablet completed prednisone 2.5 MG Oral Tablet [place] ([facility]) Cephalexin 500 MG Oral Capsule cephalexin 500 mg capsu le cephalexin 500 mg capsule completed cephalexin 500 MG Oral Capsule [place] ([facility]) Prednisone 10 MG Oral Tablet prednisone 10 mg tablet prednisone 10 mg tablet completed prednisone 10 MG Oral Tablet [place] ([facility]) Citalopram 20 MG Oral Tablet citalopram 20 mg tablet citalopram 20 mg tablet completed citalopram 20 MG Oral Tablet [place] ([facility]) Suprep Bowel Prep Kit 17.5 gram-3.13 gram-1.6 gram oral solution 19905 5 completed Suprep Bowel Pr ep Kit 17.5 gram-3.13 gram-1.6 gram oral solution [place] ([facility]) Citalopram 20 MG Oral Tablet citalopram 20 mg tablet citalopram 20 mg tablet completed citalopram 20 MG Oral Tablet [place] ([facility]) Baclofen 10 MG Oral Tablet baclofen 10 mg tablet baclofen 10 mg tablet completed baclofen 10 MG Oral Table t [place] ([facility]) pantoprazole 40 MG Delayed Release Oral Tablet pantoprazole 40 mg tablet,delayed release pantoprazole 40 mg tablet,delayed release completed pantoprazole 40 MG Delayed Release Oral Tablet [place] ([facility]) Nystatin 617104 UNT/ML Topical Cream nystatin 100,000 unit/gram topical cream nystatin 100,000 unit/gram topical cream completed nystatin 703304 UNT/ML Topical Cream [place] ([facility]) Prednisone 5 MG Oral Tablet prednisone 5 mg tablet prednisone 5 mg ta blet completed prednisone 5 MG Oral Tablet [place] ([facility]) Amoxicillin 500 MG Oral Capsule amoxicillin 500 mg cap sara amoxicillin 500 mg capsule completed amoxicillin 50 0 MG Oral Capsule [place] ([facility]) Prednisone 10 MG Oral Tablet prednisone 10 mg tablet prednisone 10 mg tablet completed prednisone 10 MG Oral Tablet [place] ([facility]) Nystatin 924377 UNT/ML Topical Cream nystatin 100,000 unit/gram topical cream nystatin 100,000 unit/gram topical cream completed nystatin 851724 UNT/ML Topical Cream [place] ([facility]) pantoprazole 40 MG Delayed Release Oral Tablet pantoprazole 40 mg tablet,delayed release pantoprazole 40 mg tablet,delayed release completed pantoprazole 40 MG Delayed Release Oral Tablet [place] ([facility]) Nystatin 291763 UNT/ML Topical Cream nystatin 100,000 unit/gram topical cream nystatin 100,000 unit/gram topical cream completed nystatin 692867 UNT/ML Topical Cream [place] ([facility]) Baclofen 10 MG Oral Tablet baclofen 10 mg tablet baclofen 10 mg tablet completed baclofen 10 MG Oral Table t [place] ([facility]) Alprazolam 0.5 MG Oral Tablet alprazolam 0.5 mg tablet alpra zolam 0.5 mg tablet completed alprazolam 0.5 MG Oral Tablet [place] ([facility]) Baclofen 10 MG Oral Tablet baclofen 10 mg tablet baclofen 10 mg tablet completed baclofen 10 MG Oral Table t [facility] ([facility]) Nystatin 195686 UNT/ML Topical Cream nystatin 100,000 unit/gram topical cream nystatin 100,000 unit/gram topical cream completed nystatin 104522 UNT/ML Topical Cream [place] ([facility]) Prednisone 2.5 MG Oral Tablet prednisone 2.5 mg tablet predn isone 2.5 mg tablet completed prednisone 2.5 MG Oral Tablet [place] ([facility]) Alprazolam 0.5 MG Oral Tablet alprazolam 0.5 mg tablet alpra zolam 0.5 mg tablet completed alprazolam 0.5 MG Oral Tablet [place] ([facility]) Prednisone 2.5 MG Oral Tablet prednisone 2.5 mg tablet predn isone 2.5 mg tablet completed prednisone 2.5 MG Oral Tablet [place] ([facility]) pantoprazole 40 MG Delayed Release Oral Tablet pantoprazole 40 mg tablet,delayed release pantoprazole 40 mg tablet,delayed release completed pantoprazole 40 MG Delayed Release Oral Tablet [facility] ([facility]) Cephalexin 500 MG Oral Capsule cephalexin 500 mg capsu le cephalexin 500 mg capsule completed cephalexin 500 MG Oral Capsule [place] ([facility]) Citalopram 20 MG Oral Tablet citalopram 20 mg tablet citalopram 20 mg tablet completed citalopram 20 MG Oral Tablet [place] ([facility]) Baclofen 5 MG Oral Tablet baclofen 5 mg tablet baclofen 5 mg tablet completed baclofen 5 MG Oral Tablet [place] ([facility]) Amoxicillin 500 MG Oral Capsule amoxicillin 500 mg cap sara amoxicillin 500 mg capsule completed amoxicillin 50 0 MG Oral Capsule [place] ([facility]) Prednisone 10 MG Oral Tablet prednisone 10 mg tablet prednisone 10 mg tablet completed prednisone 10 MG Oral Tablet [place] ([facility]) zonisamide 50 MG Oral Capsule zonisamide 50 mg capsule zonis amide 50 mg capsule completed zonisamide 50 MG Oral Capsule [place] ([facility]) Hydrochlorothiazide 12.5 MG / Lisinopril 10 MG Oral Tablet lisinopril 10 mg- hydrochlorothiazide 12.5 mg tablet lisinopril 10 mg-hydrochlorothiazide 12. 5 mg tablet completed hydroch lorothiazide 12.5 MG / lisinopril 10 MG Oral Tablet [facility] ([facility]) Alprazolam 0.5 MG Oral Tablet alprazolam 0.5 mg tablet alpra zolam 0.5 mg tablet completed alprazolam 0.5 MG Oral Tablet [place] ([facility]) Baclofen 5 MG Oral Tablet baclofen 5 mg tablet baclofen 5 mg tablet completed baclofen 5 MG Oral Tablet [place] ([facility]) Baclofen 5 MG Oral Tablet baclofen 5 mg tablet baclofen 5 mg tablet completed baclofen 5 MG Oral Tablet [place] ([facility]) Hydrochlorothiazide 12.5 MG / Lisinopril 10 MG Oral Tablet lisinopril 10 mg- hydrochlorothiazide 12.5 mg tablet lisinopril 10 mg-hydrochlorothiazide 12. 5 mg tablet completed hydroch lorothiazide 12.5 MG / lisinopril 10 MG Oral Tablet [place] ([facility]) pantoprazole 40 MG Delayed Release Oral Tablet pantoprazole 40 mg tablet,delayed release pantoprazole 40 mg tablet,delayed release completed pantoprazole 40 MG Delayed Release Oral Tablet [place] ([facility]) Citalopram 20 MG Oral Tablet citalopram 20 mg tablet citalopram 20 mg tablet completed citalopram 20 MG Oral Tablet [place] ([facility]) Benlysta 200 mg/mL subcutaneous auto-injector [id number] completed 1 ML belimumab 200 MG/ML Auto-Injector [Benlysta] [place] ([facility]) mycophenolate mofetil 500 MG Oral Tablet [Cellcept] Ce llCept 500 mg tablet CellCept 500 mg tablet completed mycophenolate mofetil 500 MG Oral Tablet [Cellcept] [place] ([facility]) zonisamide 25 MG Oral Capsule zonisamide 25 mg capsule zonis amide 25 mg capsule completed zonisamide 25 MG Oral Capsule [place] ([facility]) Baclofen 5 MG Oral Tablet baclofen 5 mg tablet baclofen 5 mg tablet completed baclofen 5 MG Oral Tablet [place] ([facility]) Benlysta 200 mg/mL subcutaneous auto-injector [id number] completed 1 ML belimumab 200 MG/ML Auto-Injector [Benlysta] [place] ([facility]) Benlysta 200 mg/mL subcutaneous auto-injector 657405 completed 1 ML belimumab 200 MG/ML Auto-Injector [Benlysta] [facility]) Benlysta 200 mg/mL subcutaneous auto-injector [id number] completed 1 ML belimumab 200 MG/ML Auto-Injector [Benlysta] [facility]) pantoprazole 40 MG Delayed Release Oral Tablet pantoprazole 40 mg tablet,delayed release pantoprazole 40 mg tablet,delayed release completed pantoprazole 40 MG Delayed Release Oral Tablet [place] ([facility]) Benlysta 200 mg/mL subcutaneous auto-injector 517177 completed 1 ML belimumab 200 MG/ML Auto-Injector [Benlysta] [place] ([facility]) duloxetine 30 MG Delayed Release Oral Ca psule duloxetine 30 mg capsule,delayed release duloxetine 30 mg capsule,delayed release completed duloxetine 30 MG Delayed Release Oral Capsule [place] ([facility]) duloxetine 30 MG Delayed Release Oral Ca psule duloxetine 30 mg capsule,delayed release duloxetine 30 mg capsule,delayed release completed duloxetine 30 MG Delayed Release Oral Capsule [place] ([facility]) Insurance Providers Payer name Policy type / Coverage type Policy ID Covered democrat ID Covered democrat's relationship to dinero Policy Dinero Plan Information EMEDNY [id number] SP [id number] MEDICARE BLUE PPO [id number] SP [id number] MEDICAID M [id number] EXCELLUS BCBS B [id number] S [id number] MEDICAID [id number] S [id number] BLUE CROSS HMO [id number] S [id number] Excellus BCBS Medicare Advantage P [id number] S [id number] Medicaid S [id number] S [id number] BLUE CROSS MEDICARE ADVANTAGE [id number] Other [id number] MEDICAID [id number] Other [id number] MEDICAID M [id number] Self [id number] EXCELLUS MEDICARE BLUE PPO G [id number] Self [id number] BLUE CROSS BLUE SHIELD MCR -OP [id number] 18 [id number] BLUE CROSS BLUE SHIELD -O/P [id number] 18 [id number] MEDICAID -O/P EMERGENCY ROOM [id number] 18 [id number] MEDICAID -O/P EMERGENCY ROOM UNAVAILABLE UNAVAILABLE BLUE CROSS BLUE SHIELD -RECURRING [id number] 18 [id number] MEDICAID -RECURRING [id number] MEDICARE -RECURRING [id number] 18 [id number] MEDICAID -O/P [id number] 18 [id number] BLUE CROSS BLUE SHIELD-CLINIC [id number] 18 [id number] MEDICAID [id number] SP [id number] MEDICARE BLUE PPO 306 [id number] SP MEDICARE BLUE PPO 306 [id number] SP [id number] MEDICAID [id number] S [id number] SELF-PAY UNAVAILABLE S UNAVAILA BLE BLUE CROSS MEDICARE ADVANTAGE [id number] Other [id number] CARTHAGE FREE LIBRARY SP MEDICAID HEA [id number] S [id number] EXCELLUS BLUE CROSS BLUE SHIELD HEA [id number] S [id number] MEDICAID [id number] Gely [id number] EXCELLUS BCBS MEDICARE [id number] Gely [id number] BLUE CROSS MEDICARE ADVANTAGE [id number] Other [id number] EXCELLUS BCBS MEDICARE Medicare MC MEDICAID PI PI MEDICAID [id number] SP [id number] Blue Shield Medicare P [id number] SELF [id number] Medicaid [facility] S D [id number] SELF [id number] Medicaid [facility] S D [id number] SELF [id number] Blue Shield Medicare P [id number] SELF [id number] MEDICAID M [id number] S [id number] MEDICAID [id number] SP [id number] MEDICARE BLUE PPO 306 [id number] SP [id number] MEDICARE RENEE [id number] S [id number] A UNAVAILABLE UNAVAILA BLE MEDICARE BLUE PPO 306 [id number] SP [id number] MEDICAID [id number] SP [id number] Excellus BCBS Health Maintenance Organization (HMO) [id number] Self [id number] MEDICARE BLUE PPO [id number] SP [id number] Blue Shield Medicare P [id number] SELF [id number] BLUE CROSS BLUE SHIELD MCR -O/P [id number] EXCELLUS BCBS B [id number] S [id number] BLUE CROSS BLUE SHIELD-O/P [id number] 18 [id number] MEDICARE BLUE PPO P [id number] S [id number] BCBS MCARE BLUE PPO O [id number] S [id number] BLUE CROSS BLUE SHIELD-PHYSICIAN [id number] 18 [id number] BLUE CROSS BLUE SHIELD-O/P [id number] 18 [id number] BCBS MCARE BLUE PPO O [id number] S [id number] MEDICARE BLUE PPO 306 [id number] SP [id number] UNAVAILABLE UNAVAILA BLE Problems, Conditions, and Diagnoses Code Display Name Description Problem Type Effective Dates Data Source(s) 98644989 Obstructive sleep apnea syndrome Obstructive sle ep apnea syndrome Problem 07/21/2020 12:00:00 AM EST DILMA ([facility] [id number] History of pulmonary embolus History of Pulmonary Embo lucia Problem 06/06/2020 12:00:00 AM FARHAT ONEIL ([facility]) 162885721 Liver function tests abnormal Liver Function Tests Abn ormal Problem 06/06/2020 12:00:00 AM EST [place] ([facility]) 455085168 Urinary incontinence Urinary Incontinence Problem 06/06/2020 12:00:00 AM FARHAT ONEIL ([facility]) 84843955 Sjgren's syndrome SjGren's Syndrome Problem 1 08/06/2019 12:00:00 AM FARHAT CLAIREENA ([facility]) 645117323 Lupus erythematosus Lupus Erythematosus Problem 1 08/06/2019 12:00:00 AM FARHAT [place] ([facility]) 386063367 Endometriosis (clinical) Endometriosis (Clinical) Prob ruben 06/06/2020 12:00:00 AM FAR[place]AT [place] ([facility]) 078446644 Gastroesophageal reflux disease without esophagitis Gastroesophageal Reflux Disease without Esophagitis Problem 06/06/2020 12:00:00 AM DANIELLE ONEIL ([facility]) 367427650 Asthma Asthma Problem 06/06/2020 12:00:00 AM DANIELLE [facility] ([facility]) 31768866 Allergic rhinitis Allergic Rhinitis Problem 06/06/2020 12:00:00 AM FARHAT [facility] ([facility]) 13780364 Hypertensive disorder Hypertensive Disorder Problem 06/06/2020 12:00:00 AM EST [place] ([facility]) 63744607 Obstructive sleep apnea syndrome Obstructive Sle ep Apnea Syndrome Problem 06/06/2020 12:00:00 AM FARHAT [place] ([facility]) 33981665 Depressive disorder Depressive Disorder Problem 1 08/06/2019 12:00:00 AM FARHAT ONE[place] ([facility]) 67118365 Antiphospholipid syndrome Antiphospholipid Syndrome Pr oblem 06/06/2020 12:00:00 AM EST [place] ([facility]) 573821391 Morbid obesity Morbid Obesity Problem 06/06/2020 12:00: 00 AM EST [place] ([facility]) 70416064 Vitamin D deficiency Vitamin D Deficiency Problem 06/06/2020 12:00:00 AM FARHAT ONE[place] ([facility]) 04669613 Hypothyroidism Hypothyroidism Problem 06/06/2020 12:00: 00 AM FARHAT ONE[place] ([facility]) 955752458 History of pulmonary embolus History of Pulmonary Embo lucia Problem 06/06/2020 12:00:00 AM EST [place] ([facility]) 328422243 Liver function tests abnormal Liver Function Tests Abn ormal Problem 06/06/2020 12:00:00 AM EST [facility] ([facility]) 922599387 Urinary incontinence Urinary Incontinence Problem 06/06/2020 12:00:00 AM EST [facility] ([facility]) 12096017 Sjgren's syndrome SjGren's Syndrome Problem 1 08/06/2019 12:00:00 AM EST [facility] ([facility]) 290219679 Lupus erythematosus Lupus Erythematosus Problem 1 08/06/2019 12:00:00 AM EST [facility] ([facility]) 772043845 Endometriosis (clinical) Endometriosis (Clinical) Prob ruben 06/06/2020 12:00:00 AM EST [facility] ([facility]) 241067586 Gastroesophageal reflux disease without esophagitis Gastroesophageal Reflux Disease without Esophagitis Problem 06/06/2020 12:00:00 AM DANIELLE Bryant [facility] ([facility]) 462464072 Asthma Asthma Problem 06/06/2020 12:00:00 AM DANIELLE ONE[place] ([facility]) 94189076 Allergic rhinitis Allergic Rhinitis Problem 06/06/2020 12:00:00 AM EST [place] ([facility]) 93754922 Hypertensive disorder Hypertensive Disorder Problem 06/06/2020 12:00:00 AM EST [place] ([facility]) 80882663 Obstructive sleep apnea syndrome Obstructive Sle ep Apnea Syndrome Problem 06/06/2020 12:00:00 AM FARHAT ONE[place] ([facility]) 47308115 Depressive disorder Depressive Disorder Problem 1 08/06/2019 12:00:00 AM EST [place] ([facility]) 78746674 Antiphospholipid syndrome Antiphospholipid Syndrome Pr oblem 06/06/2020 12:00:00 AM EST [facility] ([facility]) 341744233 Morbid obesity Morbid Obesity Problem 06/06/2020 12:00: 00 AM FARHAT ONE[place] ([facility]) 72724539 Vitamin D deficiency Vitamin D Deficiency Problem 06/06/2020 12:00:00 AM FARHAT ONE[place] ([facility]) 45437257 Hypothyroidism Hypothyroidism Problem 06/06/2020 12:00: 00 AM FARHAT ONE[place] ([facility]) 895004659 History of pulmonary embolus History of Pulmonary Embo lucia Problem 06/06/2020 12:00:00 AM EST [facility] ([facility]) 907802432 Liver function tests abnormal Liver Function Tests Abn ormal Problem 06/06/2020 12:00:00 AM FARHAT ONE[place] ([facility]) 743200439 Urinary incontinence Urinary Incontinence Problem 06/06/2020 12:00:00 AM EST [facility] ([facility]) 86409459 Sjgren's syndrome SjGren's Syndrome Problem 1 08/06/2019 12:00:00 AM EST [facility] ([facility]) 311318663 Lupus erythematosus Lupus Erythematosus Problem 1 08/06/2019 12:00:00 AM EST [facility] ([facility]) 873306049 Endometriosis (clinical) Endometriosis (Clinical) Prob ruben 06/06/2020 12:00:00 AM FARHAT ONE[place] ([facility]) 306730153 Gastroesophageal reflux disease without esophagitis Gastroesophageal Reflux Disease without Esophagitis Problem 06/06/2020 12:00:00 AM DANIELLE Manny ONE[facility] ([facility]) 939905089 Asthma Asthma Problem 06/06/2020 12:00:00 AM DANIELLE ONEIL ([facility]) 23716065 Allergic rhinitis Allergic Rhinitis Problem 06/06/2020 12:00:00 AM FARHAT ONE[place] ([facility]) 10559822 Hypertensive disorder Hypertensive Disorder Problem 06/06/2020 12:00:00 AM EST [facility] ([facility]) 15744622 Obstructive sleep apnea syndrome Obstructive Sle ep Apnea Syndrome Problem 06/06/2020 12:00:00 AM FARHAT ONE[place] ([facility]) 66193094 Depressive disorder Depressive Disorder Problem 1 08/06/2019 12:00:00 AM EST [facility] ([facility]) 83575437 Antiphospholipid syndrome Antiphospholipid Syndrome Pr oblem 06/06/2020 12:00:00 AM EST [facility] ([facility]) 388337354 Morbid obesity Morbid Obesity Problem 06/06/2020 12:00: 00 AM FARHAT ONEIL ([facility]) 73625279 Vitamin D deficiency Vitamin D Deficiency Problem 06/06/2020 12:00:00 AM EST [facility] ([facility]) 52383497 Hypothyroidism Hypothyroidism Problem 06/06/2020 12:00: 00 AM FARHAT ONE[place] ([facility]) 016291711 History of pulmonary embolus History of Pulmonary Embo lucia Problem 06/06/2020 12:00:00 AM EST [facility] ([facility]) 569925524 Liver function tests abnormal Liver Function Tests Abn ormal Problem 06/06/2020 12:00:00 AM EST [facility] ([facility]) 441626755 Urinary incontinence Urinary Incontinence Problem 06/06/2020 12:00:00 AM EST [facility] ([facility]) 37189066 Sjgren's syndrome SjGren's Syndrome Problem 1 08/06/2019 12:00:00 AM EST [facility] ([facility]) 122486729 Lupus erythematosus Lupus Erythematosus Problem 1 08/06/2019 12:00:00 AM EST [facility] ([facility]) 554537598 Endometriosis (clinical) Endometriosis (Clinical) Prob ruben 06/06/2020 12:00:00 AM EST [facility] ([facility]) 534895467 Gastroesophageal reflux disease without esophagitis Gastroesophageal Reflux Disease without Esophagitis Problem 06/06/2020 12:00:00 AM DANIELLE ONEIL ([facility]) 399933050 Asthma Asthma Problem 06/06/2020 12:00:00 AM DANIELLE ONEIL ([facility]) 42884479 Allergic rhinitis Allergic Rhinitis Problem 06/06/2020 12:00:00 AM FARHAT ONEIL ([facility]) 43913496 Hypertensive disorder Hypertensive Disorder Problem 06/06/2020 12:00:00 AM FARHAT ONE[facility] ([facility] [facility] [id number] Obstructive sleep apnea syndrome Obstructive Sle ep Apnea Syndrome Problem 06/06/2020 12:00:00 AM EST THAD ([facility]) [id number] Depressive disorder Depressive Disorder Problem 1 08/06/2019 12:00:00 AM FARHAT ONEIL ([facility] er) 69028209 Antiphospholipid syndrome Antiphospholipid Syndrome Pr oblem 06/06/2020 12:00:00 AM FARHAT ONEIL ([facility] er) 623288443 Morbid obesity Morbid Obesity Problem 06/06/2020 12:00: 00 AM FARHAT ONEIL ([facility]) 97358889 Vitamin D deficiency Vitamin D Deficiency Problem 06/06/2020 12:00:00 AM FARHAT ONEIL ([facility] er) 92895236 Hypothyroidism Hypothyroidism Problem 06/06/2020 12:00: 00 AM FARHAT ONEIL ([facility]) 15025590 Sjgren's syndrome SjGren's Syndrome Problem 1 08/06/2019 12:00:00 AM FARHAT ONEIL ([facility] er) 150139816 Lupus erythematosus Lupus Erythematosus Problem 1 08/06/2019 12:00:00 AM EST THAD ([facility] er) 786348221 Endometriosis (clinical) Endometriosis (Clinical) Prob ruben 06/06/2020 12:00:00 AM FARHAT ONEIL ([facility] er) 507533499 Gastroesophageal reflux disease without esophagitis Gastroesophageal Reflux Disease without Esophagitis Problem 06/06/2020 12:00:00 AM DANIELLE ONEIL ([facility]) [id number] Asthma Asthma Problem 06/06/2020 12:00:00 AM DANIELLE ONEIL ([facility]) 66843157 Allergic rhinitis Allergic Rhinitis Problem 06/06/2020 12:00:00 AM EST THAD ([facility]) 46841250 Hypertensive disorder Hypertensive Disorder Problem 06/06/2020 12:00:00 AM FARHAT ONEIL ([facility] er) 04722211 Obstructive sleep apnea syndrome Obstructive Sle ep Apnea Syndrome Problem 06/06/2020 12:00:00 AM FARHAT ONEIL ([facility]) 73640806 Depressive disorder Depressive Disorder Problem 1 08/06/2019 12:00:00 AM FARHAT ONEIL ([facility] er) 29186291 Antiphospholipid syndrome Antiphospholipid Syndrome Pr oblem 06/06/2020 12:00:00 AM EST THAD ([facility] er) 909746812 Morbid obesity Morbid Obesity Problem 06/06/2020 12:00: 00 AM FARHAT ONEIL ([facility]) 56674915 Vitamin D deficiency Vitamin D Deficiency Problem 06/06/2020 12:00:00 AM FARHAT ONEIL ([facility] er) 11659346 Hypothyroidism Hypothyroidism Problem 06/06/2020 12:00: 00 AM FARHAT ONEIL ([facility]) 202793409 History of pulmonary embolus History of Pulmonary Embo lucia Problem 06/06/2020 12:00:00 AM EST THAD ([facility] er) 112413388 Liver function tests abnormal Liver Function Tests Abn ormal Problem 06/06/2020 12:00:00 AM EST THAD ([facility] er) 851366937 Urinary incontinence Urinary Incontinence Problem 06/06/2020 12:00:00 AM EST THAD ([facility] er) 07168068 Sjgren's syndrome SjGren's Syndrome Problem 1 08/06/2019 12:00:00 AM EST THAD ([facility] er) 904602210 Lupus erythematosus Lupus Erythematosus Problem 1 08/06/2019 12:00:00 AM EST THAD ([facility] er) 022401348 Endometriosis (clinical) Endometriosis (Clinical) Prob ruben 06/06/2020 12:00:00 AM FARHAT ONEIL ([facility] er) 778245047 Gastroesophageal reflux disease without esophagitis Gastroesophageal Reflux Disease without Esophagitis Problem 06/06/2020 12:00:00 AM DANIELLE Manny THAD ([facility]) 183893941 Asthma Asthma Problem 06/06/2020 12:00:00 AM DANIELLE ONEIL ([facility]) 74236514 Allergic rhinitis Allergic Rhinitis Problem 06/06/2020 12:00:00 AM FARHAT OENIL ([facility]) 29574967 Hypertensive disorder Hypertensive Disorder Problem 06/06/2020 12:00:00 AM EST THAD ([facility] er) 37359965 Obstructive sleep apnea syndrome Obstructive Sle ep Apnea Syndrome Problem 06/06/2020 12:00:00 AM FARHAT ONEIL ([facility]) 67678724 Depressive disorder Depressive Disorder Problem 1 08/06/2019 12:00:00 AM EST THAD ([facility] er) 48475449 Antiphospholipid syndrome Antiphospholipid Syndrome Pr oblem 06/06/2020 12:00:00 AM EST THAD ([facility] er) 550972355 Morbid obesity Morbid Obesity Problem 06/06/2020 12:00: 00 AM FARHAT ONEIL ([facility]) 55728185 Vitamin D deficiency Vitamin D Deficiency Problem 06/06/2020 12:00:00 AM FARHAT ONEIL ([facility] er) 36204068 Hypothyroidism Hypothyroidism Problem 06/06/2020 12:00: 00 AM FARHAT ONEIL ([facility]) 733601146 History of pulmonary embolus History of Pulmonary Embo lucia Problem 06/06/2020 12:00:00 AM EST THAD ([facility] er) 931883081 Liver function tests abnormal Liver Function Tests Abn ormal Problem 06/06/2020 12:00:00 AM FARHAT ONEIL ([facility] er) 510430901 Urinary incontinence Urinary Incontinence Problem 06/06/2020 12:00:00 AM EST THAD ([facility] er) 58408702 Sjgren's syndrome SjGren's Syndrome Problem 1 08/06/2019 12:00:00 AM EST THAD ([facility] er) 495174691 Lupus erythematosus Lupus Erythematosus Problem 1 08/06/2019 12:00:00 AM EST THAD ([facility] er) 189669300 Endometriosis (clinical) Endometriosis (Clinical) Prob ruben 06/06/2020 12:00:00 AM FARHAT ONEIL ([facility] er) 582541661 Gastroesophageal reflux disease without esophagitis Gastroesophageal Reflux Disease without Esophagitis Problem 06/06/2020 12:00:00 AM DANIELLE ONEIL ([facility]) 488794364 Asthma Asthma Problem 06/06/2020 12:00:00 AM DANIELLE ONEIL ([facility]) 35916306 Allergic rhinitis Allergic Rhinitis Problem 06/06/2020 12:00:00 AM FARHAT ONEIL ([facility]) 82967344 Hypertensive disorder Hypertensive Disorder Problem 06/06/2020 12:00:00 AM EST THAD ([facility] er) 29916664 Obstructive sleep apnea syndrome Obstructive Sle ep Apnea Syndrome Problem 06/06/2020 12:00:00 AM EST THAD ([facility]) 56254319 Depressive disorder Depressive Disorder Problem 1 08/06/2019 12:00:00 AM EST THAD ([facility] er) 58468333 Antiphospholipid syndrome Antiphospholipid Syndrome Pr oblem 06/06/2020 12:00:00 AM EST THAD ([facility] er) 341105877 Morbid obesity Morbid Obesity Problem 06/06/2020 12:00: 00 AM FARHAT ONEIL ([facility]) 74647825 Vitamin D deficiency Vitamin D Deficiency Problem 06/06/2020 12:00:00 AM EST THAD ([facility] er) 06792099 Hypothyroidism Hypothyroidism Problem 06/06/2020 12:00: 00 AM FARHAT ONEIL ([facility]) 896611137 History of pulmonary embolus History of Pulmonary Embo lucia Problem 06/06/2020 12:00:00 AM EST THAD ([facility]) 145724539 Liver function tests abnormal Liver Function Tests Abn ormal Problem 06/06/2020 12:00:00 AM EST THAD ([facility] er) 762842978 Urinary incontinence Urinary Incontinence Problem 06/06/2020 12:00:00 AM EST THAD ([facility] er) 31827375 Sjgren's syndrome SjGren's Syndrome Problem 1 08/06/2019 12:00:00 AM EST THAD ([facility] er) 638072182 Lupus erythematosus Lupus Erythematosus Problem 1 08/06/2019 12:00:00 AM EST THAD ([facility]) 849516382 Endometriosis (clinical) Endometriosis (Clinical) Prob ruben 06/06/2020 12:00:00 AM EST THAD ([facility] er) 749709305 Gastroesophageal reflux disease without esophagitis Gastroesophageal Reflux Disease without Esophagitis Problem 06/06/2020 12:00:00 AM DANIELLE ONEIL ([facility]) 842449331 Asthma Asthma Problem 06/06/2020 12:00:00 AM DANIELLE ONEIL ([facility]) 76879071 Allergic rhinitis Allergic Rhinitis Problem 06/06/2020 12:00:00 AM FARHAT ONEIL ([facility]) 10576620 Hypertensive disorder Hypertensive Disorder Problem 06/06/2020 12:00:00 AM EST THAD ([facility] er) 37986940 Obstructive sleep apnea syndrome Obstructive Sle ep Apnea Syndrome Problem 06/06/2020 12:00:00 AM EST THAD ([facility]) 96954575 Depressive disorder Depressive Disorder Problem 1 08/06/2019 12:00:00 AM EST THAD ([facility] er) 71617577 Antiphospholipid syndrome Antiphospholipid Syndrome Pr oblem 06/06/2020 12:00:00 AM EST THAD ([facility] er) 974540868 Morbid obesity Morbid Obesity Problem 06/06/2020 12:00: 00 AM FARHAT ONEIL ([facility]) 13799408 Vitamin D deficiency Vitamin D Deficiency Problem 06/06/2020 12:00:00 AM EST THAD ([facility] er) 85293934 Hypothyroidism Hypothyroidism Problem 06/06/2020 12:00: 00 AM EST THAD ([facility]) 712362866 History of pulmonary embolus History of Pulmonary Embo lucia Problem 06/06/2020 12:00:00 AM EST THAD ([facility] er) 433970459 Liver function tests abnormal Liver Function Tests Abn ormal Problem 06/06/2020 12:00:00 AM EST THAD ([facility] er) 769448306 Urinary incontinence Urinary Incontinence Problem 06/06/2020 12:00:00 AM EST THAD ([facility] er) 607926399 History of pulmonary embolus History of Pulmonary Embo lucia Problem 06/06/2020 12:00:00 AM EST THAD ([facility] er) 833047869 Liver function tests abnormal Liver Function Tests Abn ormal Problem 06/06/2020 12:00:00 AM EST THAD ([facility] er) 956918714 Urinary incontinence Urinary Incontinence Problem 06/06/2020 12:00:00 AM EST THAD ([facility] er) 36054426 Sjgren's syndrome SjGren's Syndrome Problem 1 08/06/2019 12:00:00 AM EST THAD ([facility] er) 812399164 Lupus erythematosus Lupus Erythematosus Problem 1 08/06/2019 12:00:00 AM EST THAD ([facility] er) 714351469 Endometriosis (clinical) Endometriosis (Clinical) Prob ruben 06/06/2020 12:00:00 AM EST THAD ([facility] er) 456758623 Gastroesophageal reflux disease without esophagitis Gastroesophageal Reflux Disease without Esophagitis Problem 06/06/2020 12:00:00 AM DANIELLE ONEIL ([facility]) 879087359 Asthma Asthma Problem 06/06/2020 12:00:00 AM DANIELLE ONEIL ([facility]) 72227215 Allergic rhinitis Allergic Rhinitis Problem 06/06/2020 12:00:00 AM FARHAT ONEIL ([facility]) 17387750 Hypertensive disorder Hypertensive Disorder Problem 06/06/2020 12:00:00 AM EST THAD ([facility] er) 95477562 Obstructive sleep apnea syndrome Obstructive Sle ep Apnea Syndrome Problem 06/06/2020 12:00:00 AM EST THAD ([facility]) 47452253 Depressive disorder Depressive Disorder Problem 1 08/06/2019 12:00:00 AM FARHAT ONEIL ([facility] er) 24542063 Antiphospholipid syndrome Antiphospholipid Syndrome Pr oblem 06/06/2020 12:00:00 AM EST THAD ([facility] er) 559940307 Morbid obesity Morbid Obesity Problem 06/06/2020 12:00: 00 AM EST THAD ([facility]) 89866747 Vitamin D deficiency Vitamin D Deficiency Problem 06/06/2020 12:00:00 AM EST THAD ([facility] er) 43678254 Hypothyroidism Hypothyroidism Problem 06/06/2020 12:00: 00 AM EST THAD ([facility]) 714387179 History of pulmonary embolus History of Pulmonary Embo lucia Problem 06/06/2020 12:00:00 AM EST THAD ([facility] er) 716351923 Liver function tests abnormal Liver Function Tests Abn ormal Problem 06/06/2020 12:00:00 AM EST THAD ([facility] er) 148318812 Urinary incontinence Urinary Incontinence Problem 06/06/2020 12:00:00 AM FARHAT ONEIL ([facility] er) 87206460 Sjgren's syndrome SjGren's Syndrome Problem 1 08/06/2019 12:00:00 AM EST THAD ([facility] er) 991384998 Lupus erythematosus Lupus Erythematosus Problem 1 08/06/2019 12:00:00 AM EST TAHD ([facility] er) 467621566 Endometriosis (clinical) Endometriosis (Clinical) Prob ruben 06/06/2020 12:00:00 AM EST THAD ([facility] er) 079933692 Gastroesophageal reflux disease without esophagitis Gastroesophageal Reflux Disease without Esophagitis Problem 06/06/2020 12:00:00 AM DANIELLE ONEIL ([facility]) 837254591 Asthma Asthma Problem 06/06/2020 12:00:00 AM DANIELLE ONEIL ([facility]) 00323419 Allergic rhinitis Allergic Rhinitis Problem 06/06/2020 12:00:00 AM FARHAT ONEIL ([facility]) 49912781 Hypertensive disorder Hypertensive Disorder Problem 06/06/2020 12:00:00 AM FARHAT ONEIL ([facility] er) 88190718 Obstructive sleep apnea syndrome Obstructive Sle ep Apnea Syndrome Problem 06/06/2020 12:00:00 AM FARHAT ONEIL ([facility]) 74468423 Depressive disorder Depressive Disorder Problem 1 08/06/2019 12:00:00 AM FARHAT ONEIL ([facility] er) 47124951 Antiphospholipid syndrome Antiphospholipid Syndrome Pr oblem 06/06/2020 12:00:00 AM EST THAD ([facility] er) 616666001 Morbid obesity Morbid Obesity Problem 06/06/2020 12:00: 00 AM EST THAD ([facility]) 72883640 Vitamin D deficiency Vitamin D Deficiency Problem 06/06/2020 12:00:00 AM EST THAD ([facility] er) 20012751 Hypothyroidism Hypothyroidism Problem 06/06/2020 12:00: 00 AM FARHAT THAD ([facility]) F33.9 Major depressive disorder, recurrent, un specified Major depressive disorder, recurrent, unspecified 04/25/2020 02:02:07 PM EDT [facility] Z00.8 Encounter for other general examination Encounter for other general examination 04/25/2020 02:02:07 PM EDT [facility] 43798723 Hypothyroidism, unspecified Hypothyroidism, unspecifie d 04/25/2020 02:02:07 PM EDT [facility] 796957303 Unspecified asthma, uncomplicated Unspecified asthma, uncomplicated 04/25/2020 02:02:07 PM EDT [facility] 530.81 Gastro-esophageal reflux disease without esophagitis Gastro-esophageal reflux disease without esophagitis 04/25/2020 02:02:07 PM ED T [facility] 65775666 Vitamin D deficiency, unspecified Vitamin D deficiency , unspecified 04/25/2020 02:02:07 PM EDT [facility] 18491453 Systemic lupus erythematosus, unspecifie d Systemic lupus erythematosus, unspecified 04/25/2020 02:02:07 PM EDT [facility] V85.43 BMI 50.0-59.9 BMI 50.0-59.9 04/25/2020 02:02:07 PM EDT [facility] 278.01 MORBID OBESITY MORBID OBESITY 04/25/2020 02:02: 07 PM EDT [facility] 046093083 Mild persistent asthma Mild persistent asthma Problem 03/20/2020 12:00:00 AM EDT MED[facility] ([facility] ) 680879061 Gastroesophageal reflux disease Gastroesophageal reflux disease Problem 01/08/2020 12:00:00 AM EDT [facility] ([facility]) 64652218 Essential hypertension Essential hypertension Problem 01/08/2020 12:00:00 AM EDT [facility] ([facility] ) 09185205 Cough Cough Problem 01/08/2020 12:00:00 AM ED T [facility] ([facility]) 767678567 Allergic rhinitis due to house dust mite Allergic rhinitis due to house dust mite Problem 01/08/2020 12:00:00 AM EDT [facility] ([facility]) Note: 4++ reaction to dust mites on intr adermal test completed in 2019. 58935486 Hypokalemia Hypokalemia Problem 11/19/2019 12:00:00 AM EDT [facility] ([facility] 52640634 Moderate recurrent major depression Mode rate recurrent major depression Problem 09/10/2019 12:00:00 AM EST [facility]ENT ([facility] M70.61 0315434 Greater trochanteric bursitis of right hi p Problem 09/04/2019 12:00:00 AM EST eCW1 ([facility]) G43.709 868143014 Chronic migraine Problem 09/04/2019 12:00:00 AM EST eCW1 ([facility]) Z86.711 664748762 History of pulmonary embolism Problem 09/04/2019 12:00:00 AM EST eCW1 ([facility]) Z86.19 763402199 History of Lyme disease Problem 09/04/2019 1 2:00:00 AM EST eCW1 ([facility]) G89.29 81546814 Other chronic pain Problem 09/04/2019 12:00: 00 AM EST eCW1 ([facility]) Z86.2 434891846 History of antiphospholipid syndrome Prob ruben 09/04/2019 12:00:00 AM EST eCW1 ([facility]) M54.6 [id number] Pain in thoracic spine Problem 09/04/19 12:00:00 AM EST eCW1 ([facility]) R52 08156140 Pain of multiple sites Problem 09/04/2019 12 :00:00 AM EST eCW1 ([facility]) M79.18 99342512 Myalgia, other site Problem 09/04/2019 12:00 :00 AM EST eCW1 ([facility]) Z92.29 323278860 History of Coumadin therapy Problem 09/04/19 20 12:00:00 AM EST eCW1 ([facility]) 98012877 Obstructive sleep apnea syndrome Obstructive sle ep apnea syndrome Problem 08/28/2019 12:00:00 AM EST MEDENT ([facility] 35678594 Paresthesia Paresthesia Problem 08/24/2019 12:00:00 AM EST MEDENT ([facility]) 51072722 Headache Headache Problem 08/24/2019 12:00:00 AM ES T MEDENT ([facility] ) 163867630 Morbid obesity Morbid obesity Problem 06/25/2019 12:00: 00 AM EST MEDENT ([facility] 997095893 Cerebral arterial aneurysm Cerebral arterial aneurysm Problem 06/25/2019 12:00:00 AM EST MEDENT ([facility] 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 Per monserrat history of vulvar dysplasia Diagnosis 05/19/2020 11:54:20 AM EDT [facility] Z87.410 Personal history of cervical dysplasia P ersonal history of cervical dysplasia Diagnosis 05/19/2020 11:54:20 AM T [facility] Z01.419 Encounter for gynecological examination (general) (routine) without abnormal findings Encounter for gynecological examination (general) (routine) without abnormal findings Diagnosis 05/19/2020 11:54:20 AM [facility] Z79.899 Other fdc (current) drug therapy O THER [facility] [employer] [facility] (CURRENT) DRUG THERAPY Diagnosis 05/08/2020 08:57:00 AM EDT [facility] Z23 Encounter for immunization ENCOUNTER FOR IMMUNIZATION Diagnosis 05/08/2020 08:57:00 AM [facility] D68.61 Antiphospholipid syndrome ANTIPHOSPHOLIPID SYNDROME Di agnosis 05/08/2020 08:57:00 AM EDT [facility] M32.9 Systemic lupus erythematosus, unspecifie d SYSTEMIC LUPUS ERYTHEMATOSUS, UNSPECIFIED Diagnosis 05/08[facility] in right lower leg Pain in right lower leg Diagno sis [facility]/01[facility] Unspecified place in unspeci fied non-institutional (private) residence as the place of occurrence of the external cause Unspecified place in unspecified non-institutional (private) residence as the place of occurrence of the external cause Diagnosis 03/17/2020 10:57:00 PM T [facility] [id number] Bitten or stung by nonvenomo us insect and other nonvenomous arthropods, initial encounter Bitten or stung by nonvenomous insect an d other nonvenomous arthropods, initial encounter Diagnosis 03/17/2020 10:57:00 PM EDT [facility] M7122 Synovial cyst of popliteal space [Lloyd] , left knee Synovial cyst of popliteal space [Lloyd], left knee Diagnosis 03/17/2020 10:57:00 PM ED T [facility] [id number] Insect bite (nonvenomous), right lower l eg, initial encounter Insect bite (nonvenomous), right lower leg, initial encounter Diagnosis 03/17/2020 10:57:00 PM EDT [facility] Z5189 Encounter for other specified aftercare Encounter for other specified aftercare Diagnosis 03/04/2020 09:55:00 AM EDT [facility] Z79.899 Other fdc (current) drug therapy O [facility]ER [facility] (CURRENT) DRUG THERAPY Diagnosis 03/03/2020 03:28:00 PM EDT [facility] 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 (CURRENT) USE OF ANTICOAGULANTS Diagnosis 03/03/2020 03:28:00 PM EDT [facility] Z86.711 Personal history of pulmonary embolism P ERSONAL HISTORY OF PULMONARY EMBOLISM Diagnosis 03/03/2020 03:28:00 PM EDT [facility] L03.311 Cellulitis of abdominal wall CELLULITIS OF ABDOMINAL W ALL Diagnosis 03/03/2020 03:28:00 PM EDT [facility] M79.605 Pain in left leg PAIN IN LEFT LEG Diagnosis 03/03/2020 03 :28:00 PM EDT [facility] M32.9 Systemic lupus erythematosus, unspecifie d SYSTEMIC LUPUS ERYTHEMATOSUS, UNSPECIFIED Diagnosis 03/03/2020 03:28:00 PM EDT [facility] D68.61 Antiphospholipid syndrome ANTIPHOSPHOLIPID SYNDROME Di agnosis 03/03/2020 03:28:00 PM EDT [facility] R85865 Pain in left shoulder Pain in left shoulder Diagnosis 01/07/2020 08:22:00 AM EDT [facility] 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 Diagnosis 08/17/2019 03:0 4:44 PM [facility] 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 Unspecified vis ual field defects Diagnosis 08/17/2019 03:04:44 PM [facility] Z79.899 Other fdc (current) drug therapy O ther fdc (current) drug therapy Diagnosis 08/17/2019 03:04:44 PM [facility] I26.99 Other pulmonary embolism without acute c or pulmonale OTHER PULMONARY EMBOLISM WITHOUT ACUTE C Diagnosis 07/16/2019 01:09:00 PM [facility] Surgeries/Procedures Procedure Description Date Indications Data Source(s) ARTHROCENTESIS ASPIR&/INJECTION MAJOR JT/BURSA 12:00:00 AM EST [facility] ([facility]) RADIOLOGIC EXAM KNEE COMPLETE 4/MORE VIEWS 07/21/2020 12:00:00 AM [facility] ([facility]) BRNCDILAT RSPSE SPMTRY PRE&POST-BRNCDILAT ADMN 12:00:00 AM EST [facility] ([facility]) ARTHROCENTESIS ASPIR&/INJECTION MAJOR JT[facility] Upper GI Biopsy 05/26/2020 12:00:00 AM [facility] ([facility], ) Colonoscopy Flexible Proximal To Splenic Flexure Diagnostic W/Or 05/26/2020 12:00:00 AM [facility] ([facility], ) ARTHROCENTESIS ASPIR&/INJECTION MAJOR JT/BURSA 12:00:00 AM [facility] ([facility]) Hospital outpatient clinic visit for assessment and ma nagement of a patient Hospital Outpatient Clinic Visit 05/08/2020 12:00:00 AM [facility] IMADM PRQ ID SUBQ/IM NJXS EA VACCINE IMMUNIZATION ADMIN EACH ADD 05/08/2020 12:00:00 AM [facility] Administration of influenza virus vaccine 05/08/2020 1 2:00:00 AM [facility] TDAP VACCINE 7/> YR IM TDAP VACCINE 7 YRS/> IM 05/08/2020 12:00:00 AM [facility] 76639 IIV4 VACC NO PRSV 0.5 ML IM 05/08/2020 12:00:00 AM [facility] ARTHROCENTESIS ASPIR&/INJECTION MAJOR JT/BURSA 10/05/2 020 12:00:00 AM EDT [facility] ([facility] ) FAF PHOTOS OU FAF PHOTOS OU Routine 04/17/2020 2:18 PM EDT Other systemic lupus erythematosus with glomerular disease 04/17/2020 02:18:16 PM EDT Other systemic lupus erythematosus with glomerular dis [facility] Other systemic lupus erythematosus with glomerular disease OCT RETINA OCT RETINA Routine 04/17/2020 2:10 PM EDT Other systemic lupus erythematosus with glomerular disease 04/17/2020 02:10:16 PM EDT Other systemic lupus erythematosus with glomerular dis [facility] Other systemic lupus erythematosus with glomerular disease ROACH VISUAL FIELD - OU - BOTH EYES ROACH VISUAL FIEL D - OU - BOTH EYES Routine 04/17/2020 2:09 PM EDT Other systemic lupus erythematosus with glomerular disease 04/17/2020 02:09:56 PM EDT Other systemic lupus erythematosus with glomerular dis [facility] Other systemic lupus erythematosus with glomerular disease Injection For Nerve Block, Greater Occipital Nerve 04/15/2020 12:00:00 AM EDT [facility] ([facility] ) INJECTION ANES OTHER PERIPHERAL NERVE/BRANCH 0 12:00:00 AM EDT [facility] ([facility], ) APPLICATION SHORT LEG CAST BELOW KNEE-TOE 04/03/2020 1 2:00:00 AM EDT [facility] ([facility] ) ARTHROCENTESIS ASPIR&/INJECTION MAJOR JT/BURSA 020 12:00:00 AM EDT [facility] ([facility] ) RADIOLOGIC EXAM KNEE COMPLETE 4/MORE VIEWS 03/26/2020 12:00:00 AM EDT [facility] ([facility] ) RADEX ANKLE COMPLETE MINIMUM 3 VIEWS 03/04/2020 12:00: 00 AM EDT [facility] ([facility] ) RADEX FOOT COMPLETE MINIMUM 3 VIEWS 03/04/2020 12:00:0 0 AM EDT [facility] ([facility] ) RADEX ANKLE COMPLETE MINIMUM 3 VIEWS 03/04/2020 12:00: 00 AM EDT [facility] ([facility] ) RADEX FOOT COMPLETE MINIMUM 3 VIEWS 03/04/2020 12:00:0 0 AM EDT [facility] ([facility] ) Injection For Nerve Block, Greater Occipital Nerve 02/21/2020 12:00:00 AM EDT [facility] ([facility] ) INJECTION ANES OTHER PERIPHERAL NERVE/BRANCH 0 12:00:00 AM EDT [facility] ) COMPLEMENT ANTIGEN EACH COMPONENT COMPLEMENT ANTIGEN 02/07/2020 12:00:00 AM [facility] DNA ANTIBODY [place]/DOUBLE STRANDED DNA ANTIBODY [place] 04/2020 12:00:00 AM [facility] URNLS DIP STICK/TABLET REAGENT AUTO MICROSCOPY URINALYSIS AU TO W/SCOPE 02/07/2020 12:00:00 AM [facility] COLLECTION VENOUS BLOOD VENIPUNCTURE ROUTINE VENIPUNCTURE 12:00:00 AM [facility] SEDIMENTATION RATE RBC NON-AUTOMATED RBC SED RATE NONAUTOMAT ED 02/07/2020 12:00:00 AM [facility] CREATININE OTHER SOURCE ASSAY OF URINE CREATININE 02/07/2020 12:00: 00 AM [facility] PROTEIN TOTAL XCPT REFRACTOMETRY URINE ASSAY OF PROTEIN URIN E 02/07/2020 12:00:00 AM [facility] C-REACTIVE PROTEIN C-REACTIVE PROTEIN 02/07/2020 12:00:00 AM [facility] BRNCDILAT RSPSE SPMTRY PRE&POST-BRNCDILAT ADMN 020 12:00:00 AM EDT [facility]) PERCUTANEOUS TESTS W/ALLERGENIC EXTRACTS 01/08/2020 12 :00:00 AM EDT [facility] ([facility] INTRACUTANEOUS TESTS W/ALLERGENIC EXTRACTS 01/08/2020 12:00:00 AM EDT [facility] ([facility]) RADEX ANKLE COMPLETE MINIMUM 3 VIEWS 12/25/2019 12:00: 00 AM EDT [facility] ([facility] ) MRI SPINAL CANAL CERVICAL W/O CONTRAST MATRL 0 12:00:00 AM EDT [facility] ([facility] ) MRI SPINAL CANAL CERVICAL W/O CONTRAST MATRL 0 12:00:00 AM EDT [facility] ([facility], ) Needle electromyography, each extremity, with related paraspinal areas, when performed, done with nerve conduction, amplitude and latency/velocity study; complete, five or more muscles studied, innervated by three or more nerves or four or more spinal levels (list separately in addition to the code for primary procedure). 10/26/2019 12:00:00 AM EDT MEDEN T ([facility], ) Needle Electromyography Non Extremity Done With Nerve Conduc tion 10/26/2019 12:00:00 AM EDT [facility] ([facility] ) Nerve Conduction 9-10 Studies 10/26/2019 12:00:00 AM E DT [facility] ([facility] ) MRI BRAIN BRAIN STEM W/O CONTRAST MATERIAL 10/22/2019 12:00:00 AM EDT [facility] ([facility] ) MRI BRAIN BRAIN STEM W/O CONTRAST MATERIAL 10/22/2019 12:00:00 AM EDT [facility] ([facility] ) MRI SPINAL CANAL LUMBAR W/O CONTRAST MATERIAL 10/20/19 12:00:00 AM EDT [facility] ([facility] ) MRI SPINAL CANAL LUMBAR W/O CONTRAST MATERIAL 10/20/19 20 12:00:00 AM EDT [facility] ([facility] ) MRI BRAIN BRAIN STEM W/O CONTRAST MATERIAL 10/19/2019 12:00:00 AM EDT [facility] ([facility] ) MRI SPINAL CANAL CERVICAL W/O CONTRAST MATRL 0 12:00:00 AM EDT [facility] ([facility] ) TSTG ANS FUNCJ CARDIOVAGAL INNERVAJ PARASYMP 0 12:00:00 AM EST [facility] ([facility] ) TSTG ANS FUNCJ CARDIOVAGAL INNERVAJ PARASYMP 0 12:00:00 AM EST [facility] ([facility] ) TESTING AUTONOMIC NERVOUS SYSTEM FUNCTION 09/14/2019 1 2:00:00 AM EST [facility] ([facility] ) TESTING AUTONOMIC NERVOUS SYSTEM FUNCTION 09/14/2019 1 2:00:00 AM EST [facility] ([facility] ) Magnetic Resonance Angiography Neck W/O Contrast Materials 09/08/2019 12:00:00 AM EST [facility] ([facility] ) Magnetic Resonance Angiography Neck W/O Contrast Materials 09/08/2019 12:00:00 AM EST [facility] ([facility], ) Needle electromyography, each extremity, with related paraspinal areas, when performed, done with nerve conduction, amplitude and latency/velocity study; complete, five or more muscles studied, innervated by three or more nerves or four or more spinal levels (list separately in addition to the code for primary procedure). 08/30/2019 12:00:00 AM EST [facility] T ([facility], ) Needle electromyography, each extremity, with related paraspinal areas, when performed, done with nerve conduction, amplitude and latency/velocity study; complete, five or more muscles studied, innervated by three or more nerves or four or more spinal levels (list separately in addition to the code for primary procedure). 08/30/2019 12:00:00 AM EST MED[facility] T ([facility], ) [address] Nerve conduction studies 13 or more studies NEW 201208/30/2019 12:00:00 AM EST [facility] ([facility] ) ESTABILISHED PATIENT [facility] CHARGE 020 12:00:00 AM EST eCW1 ([facility]) Eligible professional attests to aide saleh in the medical record they obtained, updated, or reviewed the patient's current medications 08/27/2019 12:00:00 AM EST eCW1 ([facility]) Pain assessment documented as positive u sing a standardized tool and a follow-up plan is documented 08/27/2019 12:00:00 AM EST e CW1 ([facility]) COLOR FUNDUS PHOTOGRAPHY - OU - BOTH EYES COLOR FUNDU S PHOTOGRAPHY - OU - BOTH EYES Routine 08/17/2019 4:33 PM EST Other systemic lupus erythematosus with glomerular disease High risk medication use Visual field defect of left eye 08/17/2019 09:33:46 PM EST V isual field defect of left eyeHigh risk medication useOther systemic lupus erythematosus with glomerular disease [facility] Visual field defect of left eye High risk medication use Other systemic lupus erythematosus with glomerular disease FLUORESCEIN ANGIOGRAPHY - OU - BOTH EYES FLUORESCEIN ANGIOGRAPHY - OU - BOTH EYES Routine 08/17/2019 4:33 PM EST Other systemic lupus erythematosus with glomerular disease High risk medication use Visual field defect of left eye 08/17/2019 09:33:44 PM EST V isual field defect of left eyeHigh risk medication useOther systemic lupus erythematosus with glomerular disease [facility] Visual field defect of left eye High risk medication use Other systemic lupus erythematosus with glomerular disease OCT RETINA OCT RETINA Routine 08/17/2019 4:33 PM EST High risk medication use 08/17/2019 09:33:40 PM EST High risk me dication use [facility] High risk medication use ROACH VISUAL FIELD - OU - BOTH EYES ROACH VISUAL FIEL D - OU - BOTH EYES Routine 08/17/2019 4:33 PM EST High risk medication use 08/17/2019 09:33:37 PM EST High risk me dication use [facility] High risk medication use FUNDUS PHOTOGRAPHY W/INTERPRETATION & REPORT FUNDUS A UTOFLUORESCENCE (FAF) [id number] EYES Routine 08/17/2019 4:33 PM EST Other systemic lupus erythematosus with glomerular disease High risk medication use Visual field defect of left eye 08/17/2019 09:33:34 PM EST V isual field defect of left eyeHigh risk medication useOther systemic lupus erythematosus with glomerular disease [facility] Visual field defect of left eye High risk medication use Other systemic lupus erythematosus with glomerular disease ARTHROCENTESIS ASPIR&/INJECTION MAJOR JT/BURSA DRAIN/INJ MISSY NT/BURSA W/O US 07/02/2019 12:00:00 AM [facility] Injection, triamcinolone acetonide, not otherwise specified , 10 mg 07/02/2019 12:00:00 AM [facility] Electrocardiogram Complete 06/25/2019 12:00:00 AM EST [facility] ([facility] Results ID Date Data Source [id number] 08/04/2020 12:52:00 PM EST [facility] ([facility]) Name Value Range Interpretation Code Description Data Joyce rce(s) Supporting Document(s) prothrombin time 25.3 seconds 12.5-14.3 Above high normal Prothrombi n Time [facility] ([facility]) INR normal Inr [facility] ([facility]) ID Date Data Source [id number] 07/21/2020 10:24:00 AM EST [facility] ([facility]) Name Value Range Interpretation Code Description Data Joyce rce(s) Supporting Document(s) INR normal Inr [facility] ([facility]) prothrombin time 25.5 seconds 12.5-14.3 Above high normal Prothrombi n Time [facility] ([facility]) ID Date Data Source [id number] 07/16/2020 12:00:00 AM EST [facility] Scarlet Garrett MD Patient Name: BROOKS HENDRIX [id number] [facility] Date of : 1970[place] [id number] Date of Exam: 07/16/2020PH#: Fax: [phone] EXAM: MRI FOOT LEFT WITHOUT CONTRASTCLINICAL INFORMATION: Left fot pain, possible neuroma.3T multiplanar MRI imaging of the left foot was obtained using varioussequences.Original history given 07/16/2020 of possible prior foot and/or [facility] [place] [facility]. Multipleattempts have been made in obtaining those prior examinations. It has justcome to light that there are no prior MRI's.The patient has undergone multiple left foot surgeries the operativereports have just been made available for review. The only operativereport is from a procedure that was performed on 04/15/2017. That procedureincluded left hindfoot reconstruction, calcaneal osteotomy, lateral columnlengthening, calcaneal autogenous bone graft, flexor digitorum longustendon transfer, spring ligament augmentation, and deltoid ligamentreconstruction.The lack of a preoperative MRI for comparison significantly limits postoperative evaluation. The lack of comparison to additional post operativeMRI potentially further obfuscates interpretation. If and when priorexamination become available for review, an addendum to this report can bemade.There is magnetic susceptibility seen in the os calcis from previousosteotomy and cancellus screw fixation. Significant postoperative/degenerative changes are seen throughout the mid; andparticularly, hindfoot. Advanced degenerative changes are seen throughoutthe mid and hind foot. There is marked asymmetric joint space narrowing anddevelopment of marginal osteophytosis/hypertrophic bone formation fromsurgical procedures. There is advanced asymmetric narrowing of allsubtalar joints, particularly the anterior subtalar joint seen inconjunction with T2 hypersignal on both sides of that joint. There islateral hindfoot asymmetric narrowing and osteophytosis seen in conjunctionwith an advanced heel valgus deformity. There is significant focal anddiffuse T2 hypersignal seen in the chondral and subchondral regions of thetibial plafond and talar dome, particularly laterally. There is markedasymmetric narrowing of the mortise; and particularly, laterally. There isadvanced chondral thinning of both talar dome and tibial plafond. There isadvanced thinning of all posterior tendons including the Achilles tendonand seen in conjunction with muscular atrophy. The extensor mechanismappears to be intact, however, there is evidence of advanced atrophy of allextensor musculatur e. There is no evidence of a significant joint effusionor acute fracture. There is no plantar soft tissue edema or abnormalityseen involving the plantar aponeurosis.There are areas of both thickening and thinning involving the anterior andposterior talofibular ligaments with irregularity of the calcanofibularligament. Ligamentous integrity cannot be confirmed. There are areas ofirregularity and mixed T1 and T2 prolongation seen in the deltoid ligamentcomplex with evidence of anchoring to the talus. The sinus tarsi ligamentsare irregular and thinned and there is limited adipose signal within thesinus tarsi. There is evidence of cystic degenerative change seeninvolving the os calcis deep to the angle of [place] with evidence ofdegenerative change seen involving the lateral talar process.IMPRESSION:1. Advanced chronic changes seen involving the tibial plafond and talardome with edema and subchondral cyst formation seen in conjuction withmarked asymmetric mortise narrowing and particularly laterally. This islikely secondary to a combination of chronic osteochondral lesions withsubchondral cyst formation, likely with concomitant edema due to repeatedmicrotrauma and advanced chondromalacia.2. Evidence of lateral hindfoot impingement as described above.3. Chronic degenerative changes involving the subtalar joints as describedabove.4. Markedly thinned tendinous structures with muscular atrophy bothanteriorly and posteriorly as described above, likely secondary to disuseatrophy but needs to be correlated clinically.5. Likely chronic changes to multiple tendinous and ligamentous structuresas described above but without definite evidence of acute transection orsignificant peritendinous fluid that would suggest acute inflammation.6. Chronic ligamentous changes as described above. Clinical evaluationfor potential sinus tarsi syndrome is suggested.7. Other findings both chronic and post operative as described above.Accredited by the [employer] in MR.MERT Hassan/Hollis mcintyre for referring BROOKS HENDRIX to our office. Electronically Signed - KORY PLATT DO 08/05/20 13:21 Name Value Range Interpretation Code Description Data Joyce rce(s) Supporting Document(s) ID Date Data Source [id number] 07/16/2020 12:11:00 PM EST [facility] ([facility]) Name Value Range Interpretation Code Description Data Joyce rce(s) Supporting Document(s) INR normal Inr [facility] ([facility]) prothrombin time 21.1 seconds 12.5-14.3 Above high normal Prothrombi n Time [facility] ([facility]) ID Date Data Source [id number] 07/08/2020 12:00:00 AM EST [facility] Name Value Range Interpretation Code Description Data Joyce rce(s) Supporting Document(s) 2019-nCoV RNA XXX RHEA+probe-Imp [facility] This lab was ordered by [facility] and reported by [facility]. ID Date Data Source [id number] 07/07/2020 01:54:00 PM EST [facility] ([facility]) Name Value Range Interpretation Code Description Data Joyce rce(s) Supporting Document(s) INR normal Inr [facility] ([facility]) prothrombin time 23.3 seconds 12.5-14.3 Above high normal Prothrombi n Time [facility] ([facility]) ID Date Data Source [id number] 07/07/2020 01:54:00 PM EST [facility] ([facility]) Name Value Range Interpretation Code Description Data Joyce rce(s) Supporting Document(s) INR normal Inr [facility] ([facility]) prothrombin time 23.3 seconds 12.5-14.3 Above high normal Prothrombi n Time [facility] ([facility]) ID Date Data Source [id number] 07/07/2020 01:54:00 PM EST [facility] ([facility]) Name Value Range Interpretation Code Description Data Joyce rce(s) Supporting Document(s) prothrombin time 23.3 seconds 12.5-14.3 Above high normal Prothrombi n Time [facility] ([facility]) INR normal Inr [facility] ([facility]) ID Date Data Source [id number] 07/07/2020 01:54:00 PM EST [facility] ([facility]) Name Value Range Interpretation Code Description Data Joyce rce(s) Supporting Document(s) INR normal Inr [facility] ([facility]) prothrombin time 23.3 seconds 12.5-14.3 Above high normal Prothrombi n Time [facility] ([facility]) ID Date Data Source [id number] 07/02/2020 12:00:00 AM EST [facility] Maximo HERNANDEZ Patient Name: SIMEONBROOKS [id number] Date of : 1970[address] [birth year] Date of Exam: 07/02/2020[place] [id number]#: Fax: [phone] EXAM: US LEFT EXTREMITY VEINS, UNILATCLINICAL INFORMATION: Pain and swelling.VENOUS ULTRASOUND OF THE LEFT LOWER EXTREMITY:Multiple ultrasonographic images of the deep venous structures of the leftthigh were obtained from the level of the common femoral vein to thepopliteal vein in the longitudinal and transverse scan planes along withDoppler interrogation and color flow Doppler imaging.There is no abnormal echogenic material seen within any of the visualizeddeep venous structures that would suggest acute thrombosis. Coaptation isunremarkable throughout. Doppler interrogation shows an expected responseto respiratory variability and augmentation. The color flow Doppler imagesshow what appears to be a normal vascular pattern throughout.Seen in the posterior popliteal fossa, there is a 6.4 x .8 x 2.2 cm sizednearly anechoic structure consistent with a Lloyd's cyst.IMPRESSION:There is no ultrasonographic evidence of deep venous thrombosis involvingany of the visualized deep venous structures of the left thigh as describedabove.Accredited by the [employer] in Vascular PeripheralUltrasound.MERT Hassan/Hollis you for referring BROOKS HENDRIX to our office. Olga ctronically Signed - KORY PLATT DO 07/03/20 13:58 Name Value Range Interpretation Code Description Data Joyce rce(s) Supporting Document(s) ID Date Data Source [id number] 06/23/2020 10:58:00 AM EST [facility] ([facility]) Name Value Range Interpretation Code Description Data Joyce rce(s) Supporting Document(s) prothrombin time 25.5 seconds 12.5-14.3 Above high normal Prothrombi n Time [facility] ([facility]) INR normal Inr [facility] ([facility]) ID Date Data Source [id number] 06/23/2020 10:58:00 AM EST [facility] ([facility]) Name Value Range Interpretation Code Description Data Joyce rce(s) Supporting Document(s) prothrombin time 25.5 seconds 12.5-14.3 Above high normal Prothrombi n Time [facility] ([facility]) INR normal Inr [facility] ([facility]) ID Date Data Source [id number] 06/23/2020 10:58:00 AM EST [facility] ([facility]) Name Value Range Interpretation Code Description Data Joyce rce(s) Supporting Document(s) prothrombin time 25.5 seconds 12.5-14.3 Above high normal Prothrombi n Time [facility] ([facility]) INR normal Inr [facility] ([facility]) ID Date Data Source [id number] 06/23/2020 10:58:00 AM EST [facility] ([facility]) Name Value Range Interpretation Code Description Data Joyce rce(s) Supporting Document(s) INR normal Inr [facility] ([facility]) prothrombin time 25.5 seconds 12.5-14.3 Above high normal Prothrombi n Time [facility] ([facility]) ID Date Data Source [id number] 06/23/2020 10:58:00 AM EST [facility] ([facility]) Name Value Range Interpretation Code Description Data Joyce rce(s) Supporting Document(s) prothrombin time 25.5 seconds 12.5-14.3 Above high normal Prothrombi n Time [facility] ([facility]) INR normal Inr [facility] ([facility]) ID Date Data Source [id number] 06/11/2020 01:23:00 PM EST [facility] ([facility]) Name Value Range Interpretation Code Description Data Joyce rce(s) Supporting Document(s) prothrombin time 27.1 seconds 12.5-14.3 Above high normal Prothrombi n Time [facility] ([facility]) INR normal Inr [facility] ([facility]) ID Date Data Source [id number] 06/11/2020 01:23:00 PM EST [facility] ([facility]) Name Value Range Interpretation Code Description Data Joyce rce(s) Supporting Document(s) prothrombin time 27.1 seconds 12.5-14.3 Above high normal Prothrombi n Time [facility] ([facility]) INR normal Inr [facility] ([facility]) ID Date Data Source [id number] 06/11/2020 01:23:00 PM EST [facility] ([facility]) Name Value Range Interpretation Code Description Data Joyce rce(s) Supporting Document(s) INR normal Inr [facility] ([facility]) prothrombin time 27.1 seconds 12.5-14.3 Above high normal Prothrombi n Time [facility] ([facility]) ID Date Data Source [id number] 06/11/2020 01:23:00 PM EST [facility] ([facility]) Name Value Range Interpretation Code Description Data Joyce rce(s) Supporting Document(s) prothrombin time 27.1 seconds 12.5-14.3 Above high normal Prothrombi n Time [facility] ([facility]) INR normal Inr [facility] ([facility]) ID Date Data Source [id number] 06/11/2020 01:23:00 PM EST [facility] ([facility]) Name Value Range Interpretation Code Description Data Joyce rce(s) Supporting Document(s) INR normal Inr [facility] ([facility]) prothrombin time 27.1 seconds 12.5-14.3 Above high normal Prothrombi n Time [facility] ([facility]) ID Date Data Source [id number] 06/11/2020 01:23:00 PM EST [facility] ([facility]) Name Value Range Interpretation Code Description Data Joyce rce(s) Supporting Document(s) prothrombin time 27.1 seconds 12.5-14.3 Above high normal Prothrombi n Time [facility] ([facility]) INR normal Inr [facility] ([facility]) ID Date Data Source [id number] 06/11/2020 01:23:00 PM EST [facility] ([facility]) Name Value Range Interpretation Code Description Data Joyce rce(s) Supporting Document(s) prothrombin time 27.1 seconds 12.5-14.3 Above high normal Prothrombi n Time [facility] ([facility]) INR normal Inr [facility] ([facility]) ID Date Data Source [id number] 06/11/2020 01:23:00 PM EST THAD ([facility]) Name Value Range Interpretation Code Description Data Joyce rce(s) Supporting Document(s) prothrombin time 27.1 seconds 12.5-14.3 Above high normal Prothrombi n Time THAD ([facility]) INR normal Inr THAD ([facility]) ID Date Data Source [id number] 06/11/2020 01:23:00 PM EST THAD ([facility]) Name Value Range Interpretation Code Description Data Joyce rce(s) Supporting Document(s) prothrombin time 27.1 seconds 12.5-14.3 Above high normal Prothrombi n Time THAD ([facility]) INR normal Inr THAD ([facility]) ID Date Data Source [id number] 05/29/2020 10:16:00 AM EDT THAD ([facility]) Name Value Range Interpretation Code Description Data Joyce rce(s) Supporting Document(s) prothrombin time 23.8 seconds 12.5-14.3 Above high normal Prothrombi n Time THAD ([facility]) INR normal Inr THAD ([facility]) ID Date Data Source [id number] 05/29/2020 10:16:00 AM EDT THAD ([facility]) Name Value Range Interpretation Code Description Data Joyce rce(s) Supporting Document(s) prothrombin time 23.8 seconds 12.5-14.3 Above high normal Prothrombi n Time THAD ([facility]) INR normal Inr THAD ([facility]) ID Date Data Source [id number] 05/29/2020 10:16:00 AM EDT THAD ([facility]) Name Value Range Interpretation Code Description Data Joyce rce(s) Supporting Document(s) prothrombin time 23.8 seconds 12.5-14.3 Above high normal Prothrombi n Time THAD ([facility]) INR normal Inr THAD ([facility]) ID Date Data Source [id number] 05/29/2020 10:16:00 AM [facility]T [facility] Name Value Range Interpretation Code Description Data Joyce rce(s) Supporting Document(s) prothrombin time 23.8 seconds 12.5-14.3 Above high normal Prothrombi n Time THAD ([facility]) INR normal Inr THAD ([facility]) ID Date Data Source [id number] 05/29/2020 10:16:00 AM EDT [facility] Name Value Range Interpretation Code Description Data Joyce rce(s) Supporting Document(s) prothrombin time 23.8 seconds 12.5-14.3 Above high normal Prothrombi n Time THAD ([facility]) INR normal Inr THAD ([facility]) ID Date Data Source [id number] 05/26/2020 02:11:00 PM EDT MEDENT ([facility], ) Name Value Range Interpretation Code Description Data Joyce rce(s) Supporting Document(s) Surgical pathology study Laboratory test result [facility] ([facility], ) FINAL DIAGNOSIS A-Gastric polyp, biopsy: Gastric mucosa with foveolar hyperplasia and inflammation. B-Gastric, biopsy: Gastric mucosa with mild chronic inflammation and reparative changes. No H.pylori is identified. 05/28/2020934 CLINICAL DIAGNOSIS Screening colonoscopy, heartburn 05/27/2020 - 144 GROSS DIAGNOSIS A - Received in formalin labeled "gastric polyp biopsy" and consists of a fragment of tissue 0.2 x 0.2 x 0.1 cm. All in one. B - Received in formalin labeled "biopsy gastritis" and consists of a fragment of tissue 0.2 x 0.1 x 0.1 cm. All in one. -OA 05/27/20201444 Signed WILMER QUIÑONEZ MD 05/28/2020 0936 ID Date Data Source [id number] 05/21/2020 12:00:00 PM EDT [facility] Name Value Range Interpretation Code Description Data Joyce rce(s) Supporting Document(s) SARS coronavirus 2 RNA [facility] This lab was ordered by [facility] and reported by [facility]. ID Date Data Source [id number] 05/19/2020 04:53:56 PM EDT [facility] Name Value Range Interpretation Code Description Data Joyce rce(s) Supporting Document(s) Progress Note [facility] VMUGRr6mNcAYDgVj42/TYWopRNErm5PrJKlwIRl8KHydPWVxO4MvRPJ6tZ5pVKA2AOuGXbKxFqOxCMT7 lbm [file] zbcWMlA+FIELD [employer] W[employer]ER/XmmyA/o8lqmk9X/ty1JAMNqLxvPsrCAs6ssipdghMIgdkM6aJlAmQnR14cef/hn/FkhGU nyf929njpfcgolEfjyv5NNcob+Z8VuroGnYZZaVsG+l6QBEyhhbpLLm1DHkismBij6ftCi1hPr0Yqr45 ba8nSI2yQ3Am0UlPye1b9ZKX/JEieq92qxZ3KZXTep DJAUeGsDcuTuELPUEd4XQ8VdiZKlwEOj8sc09SiZZ+wDAvMyScdf8J24QjN2rG7MH/qA0bk5kDy64DGI NRhmRmGqHWluWFynqvlbu4MZUYcU4p3FLuqGFzy76yYZQvAO0RVouRlXeIIc4kDPZ3zcQQeZ08ZFHn20 B6WiqNnz1f0dh8m4iCIzoERBtPgL4ETsRIy988pSmV zL4HkRY14gSSU8PtVoK96yMTo0O8ecRlHt7fAgOSgKug4P6der6ZHXnTvK1BlFrCzDgegrq9WtLFcjK7 p4HkVmKokNjIu/uLsxEarv+VIwsS9s2+nBklcRmS8C462DIIG/l3G2yMbTd6I4xjTlzDjVLNnWlYad1s 1/if9ydtX0P+3CiCbRYQJ26/jyMhRK1eKlVd5ongYm 4YXjty32la7cEWWBkOoSs9HaXwz/0Ir3efqcDSaUVDoPG7hn2EdWvt/tHojpjJ1WtqxhZJTR4aknki5M xrf0qRodw/wabc8Nj72w68j/GBxG2RmbmJM763V5Vk++AIYqzk9456e5iYP63u59Zx5NpyK75gdLixol WmOk441cBafcaWsR5UP5w6OAQVannzZltNAgulONS4 glhYHhbIgZwzM9V2Tzjjd4zyQC8p17VyfDY8xV8Kkghpc/ow0gs2aRZ27d/qGEKeHFDbxKllTsZ/n0ql tUghAskGEneXZcZ/BMEH0J89bzMPLtBydnor4zShcmhENL7deyzH2Hs4SU3pen5/3D252cMa9ZCU2dx7 RyZWFtDQplbmRvYmoNCjcgMCBvYmoNCiAgPDwNCiAg [file] GH+Kkg0jM5Uf2TN7eLuxz6W3AsXPJEiChojXux1Y77lDUnOo7Lfjld/T0AHg4KzJqmuLjULGPLxq/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 [file] AgICAgICAgICAgICAgICAgICAgICAgICAgICAgICAg FYBzBDEzATOdSX8SRCSaHSYxETKeMXSlQDDlRHQoMLAuUZRrRESpQZIcSBWgGAAmQNWxOGLtTFQtBPRc RXWsNFXvNGVoNVMcADWeGLDvIAWjTXGmMLOgLIZuDNVeIQCwYJPuYFNbNNEwWZHoRSWuZY3PZHLrKDKy ICAgICAgICAgICAgICAgICAgICAgICAgICAgICAgIC AgICAgICAgICAgICAgICAgICAgICAgICAgICAgICAgICAgICAgICAgICAgICAgICAgICAgICAgICAgIC YgBT5AXVChZDIeBLHzFRTmZUYbNSJcTVIbLEQoBNHcOWVqCJRbMCOgWPArPXDlAUEzJNVcPUBqTTEbPG AgICAgICAgICAgICAgICAgICAgICAgICAgICAgICAg VHGgDEHuUMAoSSLcVK2NRSEzOCHdDNYrMGQoBJAqSBBxIHCfTGGcVULxINHePLUbEHTkNDFrGWAlPYKz XZBkZAGlFMUsMNTbGRMuDXNkQGWwYOVcHZCwZCIwGQXsNFYvSFRjSJZzPZQrODWkLLAnXVQpYQ2IRNYc ICAgICAgICAgICAgICAgICAgICAgICAgICAgICAgIC AgICAgICAgICAgICAgICAgICAgICAgICAgICAgICAgICAgICAgICAgICAgICAgICAgICAgICAgICAgIC GsUHSpDN9KBBIqVIYnZBVeJWMsCJKxBMDpGWHjDXFsDWMkRGGoTTQoNXVbAUFeJTBuZRYeYSQdHZMyUU AgICAgICAgICAgICAgICAgICAgICAgICAgICAgICAg JFHeFFLwNTEdDOMfJJJzAP3JBCXkXDDqTZPeHEOkCGViGJWrTBZlQILyDTRtXPKuCREbMKOsOCNxJHXp NQKyDFJqXYTuJXUpHBLxEVMgPXPhILOqVFRcAUUqJOIkVVHxYKMgKXQjVTChFQAuGMBgOGZrAYTcHK0O ICAgICAgICAgICAgICAgICAgICAgICAgICAgICAgIC AgICAgICAgICAgICAgICAgICAgICAgICAgICAgICAgICAgICAgICAgICAgICAgICAgICAgICAgICAgIC VwMOLhQKJjRC1MRQJeNJMkQCFwDIHvLJEbUSZbPSNzQFLyRTOjIDBtMOZaDVEzILQsOYBmRGTrDLNzFC AgICAgICAgICAgICAgICAgICAgICAgICAgICAgICAg BUZuNAUhBBHaNTYsIFSuUGKbRM8FDK72nXTkf3S9GFYuVB4ubii/Cr6FMKjcniDgxXVtBK9SQyAmPB1f tw3TFrEoJB1exh3OHXaHMlHhY6G2kPSlPDNpHSSPWsSwD24tVGccDa92LCxwXPWxBbKmDFl9Rw2AQwUh V3duKLXlCuI0DBOkHkU8NUKsYsU6KFTdVkZyACRqZP JqDKSqAPQQTW2XBmYpT9VadB00UIYFHh3+EYpmbvFlQsfEGtJqNLXks0BiEBd5OR1ODEWhMatfr5FmRx CaSOYJOFsbER5SZPR4WWUbBGZmVq5NQNWrF993tpQcJJ4RZl1HZeCdOB3qrx9PHoIcLSWcFbxZGwm3GY ffPO6PwHDhTPoSeh3mcnNeizEGr4AtktNzsZGXaOea qf1sUS4vQs1aE2leQXRFHXJeoKAiVS8hFC8bCEPuJEZbOjLgOTTQJJ3JPZHgGUMbhUGzZAQxQEHMHX3Z QQxlSVC0NOYwzcIddGZtUCmkDO2JFYDttxMmIiSbMDQDBXn+Sw8PPZ1ss8UdGFrrBmFeIK3hcp8ZBNsM QcCzF9K5dEOjE0B0UWhqIw0UEHOgBGUqIxuiGNSOIQ ofAE6EAO8ghtM7ED0TcUJeUZGlHEHtzKOqGJq0D72sbOUxSZtyQH7ZKRP+Halle+Cl3UTGWnVCAtYYViXa OlASEHUeZqS7QwZ1QNy7GvZ6ZoOY66nXnbzdIxZUdtZC1NJJ6sEEHcJRVZBP6HdEFrpF7husMlFDGgGM BPRhCnQ73xlEGtRTWfGZB3INKzFg9IGKPbE8HudzQk fVabymSdZLBzWYRION2MNIysrlLfdQPlaJevYG20fQxdTY5CMe9ZHiLeKO3nna8KoUFgDk1KZBEbEo9P OFGbNOSwJPNcAOX6SOFfGvKmNImgITZpHKWiEEK7HURxZKMyCA3NNhOkJYVfRFYdDCHePSGfLLZfay9L FNKiNOX0UxNfUdDrXLWdRUNsXMtkQWEhNRVqOHU5MT FzFAViIM4FSqBnVNRcPTX1ZkSyQSXhGZPmre9VOKSrZDOtDGTuOTAbPVQcHWYxKHhrCBZeTKT5BdO5VJ HjBQXwEA0JTpLiWAVwTDu4YRucHSKiXKVson7CXNUsZPXmPEc1OJLqTBKkNAQaSKviRREsZANwUMD4BG ZeTLTrRY8NSoScSVHsAFW6LFBwRIMnKXGwvx0GZNWh SCZbLfciZeMwEQVlFSApCXevTCQhPGR5QpU5EWSjFWFoOH1ASkVfUBVtCBC6UnSrKUZnNTVwgs5NVWMp NHPeLtmaWTSqKFCfLVXgVXafUOZfMEZ9PPQfORYyHKGlQN4IYkOdPDZkGCxbHFErVUUiDLInnx7JWMGo HTGiDYT4UDIkQQDrHLAmECvqHFAmTHK9MuH3RJEwGR CqKP2EUmYoQYVzOCo0KRUbQSHxHAJcxq6MYLWrUIX5AeJ2KGEhOHOzRAWaPAluBOQeYIHiZwX2ZAYvFU KfMJ3FLdFqVVUhCEA3EKWmIDUmFHAosj0GTBAmTSM0CosmFPEzDRIuTMZvQIkqOMRoASZcRTLeYNIyGK FoVD7FHgUlEHMyXBW4JJLoUHQqEALait2NHFZpACD8 YLM7PcIyHBIgZSVkOCfcFKEeTMS5WtujJQRuQJNwPO9VFkPdTFEcVSO8SHglZKSeEVQhed5AUOLdXBS9 AcB4EZXbGHPdQTFzJAfdUXGsVXU5AnFsZBUsYRCdVF4ZDvSrUHPnEXejDzWdSZBkBNRfla5PgPMlkWff tt5NPZvYXi2PvLdhPLSvZSpwBh2moRXlSqGhRFNEZz 5RcsDdUAPmAGTPTTomOCGfDON6U0IaNTP9MEzbFkE7TTVeKXzmEekfXUUzZDOdGgO6NbK3DSx0RTKeLF S7PHVjCGHuVlVwGHByGYU4C9VkHaAhZSP+UR5yJFl+Qk6As5PmvsN4deAbBJe6KuYzLC8OCHQLR1PSSf == ID Date Data Source [id number] 04/25/2020 11:34:31 AM EDT [facility] Measurements & CalculationsHeight: 68 inches (5 ft. 8 in.) 172.72 cm Weight: 333 pounds 8 oz. 151.59 kg Body Mass Index (BMI): 50.89BMI Interpretation: Morbidly ObeseBody Surface Area (BSA): 2.54Weight Management Education Done (Nutrition/Physical Activity)Vital SignsTemperature: 97.4F tympanic Pulse Rate: 80 beats/minuteRespiratory Rate: 17 respirations/minuteBlood Pressure: 129/94 sitting automaticO2 Saturation: 98% sittingVital Signs performed by: Adrian Mullen MA, April 25, 2020 12:21 PMInitial Intake Information From: patientRoom #: 12Infectious Disease / Travel ScreeningRecent travel for you or any close contacts? NoHave you had any close contact with anyone diagnosed with or under investigation for COVID-19 (coronavirus)? NoFever? NoRespiratory symptoms: cough, cold, congestion, shortness of breath, difficulty breathing? NoLoss of smell? NoLoss of taste? NoSmoking, Tobacco, Vaping or Smoke Exposure StatusSmoke Status: never smokerDo you vape? NoPassive Smoke Exposure: NoMenstrual HistoryAge at Menarche: hysterectomy (2019)Any possibility of ? NoHealthcare HistorySince your last office visit...Have you been admitted to the hospital? NoHave you been to an emergency room (ER) or urgent care clinic? Yes - [facility] (ultrasound of L leg)Emergency room (ER) or urgent care date reported today: 03/19/2020Have you seen another healthcare provider? Yes - [facility] ([facility])Healthcare provider date reported today: 03/05/2020Have you seen a dentist? Yes - [facility] exam date reported today: 03/12/2020Intake performed by: Adrian Mullen MA, April 25, 2020 11:45 AMRate Your HealthIn general, would you say your health is? FairPain AssessmentAre you currently having any pain which... You would like your provider to address? No Affects your activity level? NoDepression Screening - PHQ-2Over the last two wee ks, have you... Had little interest or pleasure in doing things? Not at all Been feeling down, depressed, or hopeless? Not at all PHQ-2 Score: 0Anxiety Screening - JOEL-2Over the last two weeks, have you been... Feeling nervous, anxious, or on edge? Not at all Unable to stop or control worrying? Not at all JOEL-2 Score: 0Food InsecurityWithin the past year...Did you worry whether your food would run out before you got money to buy more? Never trueWas there a time when the food you bought didn't last and you didn't have money to get more? Never truePatient Learning & Communication Needs Preferred learning style: verbalPossible barriers: nonePatient's Language used in visit: YesLanguage: englishAssessment of health literacy: AdequatePRAPARE Sociodemographic Characteristics Race: White Ethnicity: Not or Preferred Language: EnglishFamily and Home Address: [address] [place] [address] What is your housing situation today? I have housing Are you worried about losing your housing? NoMoney and Resources What is the highest level of school that you have finished? associate's degree Employed? Yes Your current work situation? PT Insurance: [employer] BCBS Medicare AdvantageIn the past year, have you or any family members you live with been unable to get any of the following when it was really needed? Denies Insecurity: food, utilities, clothing, school child care attendant, phone, legal services, otherWithin the past year did you worry whether your food would run out before you got money to buy more? Never trueWithin the past year was there a time when the food you bought didn't last and you didn't have money to get more? Never trueIn the past year, have you had trouble affording costs associated with health insurance (such as deductibles, co-payments, etc.)? NoSocial and Emotional Health How often do you see or talk to people that you care about and feel close to? More than 5 times a week How stressed are you? Quite a bitAdditional Optional Domains In the past 3 months, have you spent more than 2 nights in a row in a halfway, senior care, alf center or juvenile correctional facility? No Has lack of transportation kept you from medical appointments or from getting your medications? NoIn the past year, have you had trouble getting any of the following when it was really needed (check all that apply)?noneIn the past year, have you had trouble paying the costs associated with health care or medicine (such as co-payments, costs for services, prices of medicines)? NoHow confident are you that you can control and manage most of your health problems? Somewhat confident Are you a refugee? No (Country of origin: [facility]) Do you feel physically and emotionally safe where you live? Yes In the past year, have you been afraid of a partner, ex-partner? NoScreening, Brief Intervention, & Referral to Treatment (SBIRT)Pre-Screening Questions How many times have you have 4 or more drinks in a day? 0How many times have you used an illegal drug or used a prescription medication for a non-medical reason? 0Performed by: Adrian Mullen MA, April 25, 2020 11:52 AMPatient History Medical History:Morbid ObesitySjogren's Syndrome Elevated LFTsUrinary IncontinenceLupus NephritisSystemic LupusHTNEndometriosisVIt D DeficiencyGERDAllergic RhinitisHypothyroidismDepressionHx of Pulmonary EmbolismSleep ApneaAsthmaAnti-phospholipid syndromeSurgical History:Tonsillectomy 1977Laparoscopy 1995Cholecystectomy 2001Hernia Repair 2003LEEP x 2, 2014Novasure/EssureHysterectomy 2019Foot surgery X 2Family History:Father: UnknownMother: HTN, Lupus, Diabetes, Arthritis,FibromyalgiaSister: Crohn'sGrandfather: DM, HTN, Guillain BarreMaternal Grandmother: Breast and Bone CADaughter; POTSSocial/Personal History: Nurses Note Pt denies pain at this time. Pt reports taking all meds with no side effects.Chief Complaintannual exam/ NEW PEHistory of Present Illness (HPI)50 yo female with multiple chronic medical conditions (see HPI). Presents to establish care. Feeling well overall. 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 She is feeling well. No bowel or bladder concerns. She had a mammo this summer, report in previous PCP records. Has an upcoming pelvic exam at [employer] [facility]. Upper endoscopy and colonscopy in the process of being scheduled through GI. Gets her flu shot annually through rheumatology. Has had her pneumonia and shingles vaccine. 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 She does note she has struggled intermittently with depression due to chronic pain/chronic health problems and now is struggling due to COVID, breaking up with her fiance, and her daughter has been having health issues. Wondering if she can restart citalopram and get into counseling. NO SI/HI.Transitions of Care InboundProblem ReviewProblem List was reviewed and/or updated during this visit.Medication Reconciliation & ReviewMedication List was reviewed and/or updated during this visit, including review of any gvqf-sxy-reoamyg medications, herbal therapies, and/or supplements.Allergy ReviewAllergy List was reviewed and/or updated during this visit.Adult Preventive CareProvider Calculated and Reviewed all Clinical Protocols for patient today. Labs/Meds/Other Counseling-Nutrition and Physical Activity:BMI Interpretation: Morbidly Obese (04/25/2020) Counseling: Done (04/25/2020) Physical Activity: Done (04/25/2020)Cancer Screening Mammogram Reviewed: Today's Comments: Pt states Varsha or January 02019Pap Smear/HPV TestingReviewed: Today's Comments: Pt states pap scheduled for (05/2020)ColonoscopyReviewed:Today's Comments: Gave Pt fit test (04/25/2020) Review of Systems General: Denies loss of appetite, chills, dizziness, fatigue, fever, continued fever, headache, feeling ill, sweats, night sweats, sleep disturbances, weight loss. Ears/Nose/Throat: Denies earache, ear discharge, ringing in ears, decreased hearing, nasal congestion, nosebleeds, runny nose, sore throat, hoarseness, difficulty swallowing, dry mouth, tooth pain, bleeding gums, swollen glands. Cardiovascular: Denies chest pain, palpitations, feeling faint, trouble breathing w/exertion, SOB upon lying down, SOB at night, peripheral edema, elevated blood pressure, decreased heart rate. Respiratory: Denies cough, difficulty breathing, shortness of breath, excessive sputum, coughing up blood, wheezing, chest pain. Gastrointestinal: Denies nausea, vomiting, bleeding, burning, itching, irritation, cramps, diarrhea, bloody diarrhea, watery diarrhea, constipation, pain or discomfort, feeling any lumps or bumps, pain with BM, pain during receptive anal sex, change in bowel habits, fecal incontinence, abdominal pain, blood in stool, black or tarry stools, jaundice, heartburn, urge to defecate. Genitourinary: Denies urinary incontinence, pain with urination, burning with urination, urinary frequency, urinary hesitancy, urinary urgency, urinary urgency at night, incomplete emptying, blood in urine, absence of menstrual period, heavy menstrual period, prolonged menstrual period, pelvic pain, abnormal vaginal bleeding, painful intercourse, vaginal discharge, vaginal sores, vaginal itching, genital foul odor, genital sores, genital burning, genital itching, genital warts, anal discharge, anal sores, anal warts. Psychiatric: Complains of depression, feeling stressed. Denies anxiety, memory loss, mental disturbance, suicidal ideation, homicidal ideation, hallucinations, paranoia, hearing voices. Physical ExamGeneral Appearance: well nourished, well hydrated, no acute distressRespiratory, Auscultation: clear to auscultation bilaterally; no rales, rhonchi, or wheezesRespiratory, Effort: no intercostal retractions or use of accessory musclesCardiovascular, Auscultation: S1, S2 audible; no murmur, rub, or gallop; RRRPeripheral Circulation: no clubbing, cyanosis, edema, or varicositiesAbdomen: soft, non-tender, no masses, bowel sounds normalCare Management Plan Transitions of CareInboundRate Your HealthIn general, would you say your health is? FairAssessment & Plan Problems:Added: MORBID OBESITY (ICD- 278.01) (EZV82-O08.01)BMI 50.0-59.9 (ICD-V85.43) (NVA12-U15.43)Systemic lupus erythematosus, unspecified (VCH38-A90.9)Vitamin D deficiency, unspecified (WWK65-Z54.9)Gastro-esophageal reflux disease without esophagitis (ICD-530.81) (SJV23-U81.9)Unspecified asthma, uncomplicated (RXD62-N19.909)Hypothyroidism, unspecified (UOL08-Q06.9)Major depressive disorder, recurrent, unspecified (HRE11-S84.9)Encounter for other general examination (TJJ71-U96.8) Assessment: records requested from specialists. pt is doing well. most chronic conditions managed through specialty clinics. will get routine labs and schedule for physical.Assessment not SavedMajor depressive disorder; recurrent; unspecified (ELZ84-F14.9): will restart citalopram, refer to counseling. discussed risk benefits and side effects of medications. discussed crisis hotline. discussed s/s that would warrant ED eval. Medications:CITALOPRAM HYDROBROMIDE 20 MG ORAL TABLETAZELASTINE HCL 137 MCG/SPRAY NASAL SOLUTIONPREDNISONE 5 MG ORAL TABLETVITAMIN K 100 MCG ORAL TABLETB-2 100 MG ORAL TABLETCALCIUM TABLETMAGNESIUM 400 MG ORAL TABLETLEVOTHYROXINE SODIUM 100 MCG ORAL TABLETMETHOCARBAMOL 500 MG ORAL TABLETFLUTICASONE PROPIONATE 50 MCG/ACT NASAL SUSPENSIONHYDROXYCHLOROQUINE SULFATE 200 MG ORAL TABLETALBUTEROL SULFATE HFA 108 (90 BASE) MCG/ACT INHALATION AEROSOL SOLUTIONBISOPROLOL-HYDROCHLOROTHIAZIDE 5-6.25 MG ORAL TABLETVITAMIN D3 25 MCG (1000 UT) ORAL CAPSULEPOTASSIUM CHLORIDE ER 10 MEQ ORAL CAPSULE EXTENDED RELEASESYMBICORT 80-4.5 MCG/ACT INHALATION AEROSOLWARFARIN SODIUM 5 MG ORAL TABLETDEXILANT 60 MG ORAL CAPSULE DELAYED RELEASEMedication Changes:Added: VITAMIN K 100 MCG ORAL TABLET-1 tablet a dayPREDNISONE 5 MG ORAL TABLETAZELASTINE HCL 137 MCG/SPRAY NASAL SOLUTION-1 spray twice dailyNew Prescription:CITALOPRAM HYDROBROMIDE 20 MG ORAL TABLET-1 tablet once daily Qty: 30[Tablet] Refills: 1 Method: ElectronicRemoved:ALIGN 4 MG ORAL CAPSULE, FAMOTIDINE 40 MG ORAL TABLET-1 by mouth every evening, ZONISAMIDE 25 MG ORAL CAPSULE-1 tablet nightly, CELLCEPT 500 MG ORAL TABLET-3 tablets BIDChanged:From: ORAL FISH OIL 1000 MG ORAL CAPSULE Qty: [id number] To: B-2 100 MG ORAL TAB LET-Take 2 PO twice dailyFrom: ORAL HYDROXYCHLOROQUINE SULFATE 200 MG ORAL TABLET Qty: [id number] To: HYDROXYCHLOROQUINE SULFATE 200 MG ORAL TABLET-1 tablet once a dayAllergies:* ZINISIMIDE (Severe)* IMIPRAMINE (Moderate)DOXYCYCLINE (Moderate)ERYTHROMYCIN (Moderate)METHOTREXATE (Moderate)* ULTRAM (Moderate)* TOPAMAX (Moderate)Orders:COMP METABOLIC PANEL [CPT-34065] LIPID PANEL [CPT-37887] TSH [CPT-65740] Vitamin D 250H Unspecified [CPT-04865] HgBA1c [CPT-86408] Adult - Ofc Vst, NEW, Level IV [CPT-49359] Mental Health Consult [CPT-62354] Follow-Up Return to clinic: in 30 days for preventive care visitClinical Visit Summary DeclinedMedications:CITALOPRAM HYDROBROMIDE 20 MG ORAL TABLET (CITALOPRAM HYDROBROMIDE) 1 tablet once daily #30[Tablet] x 1 Route:ORAL Entered and Authorized by: Keke HERNANDEZ Method used: Electronically to [facility] (retail) [id number] [place] [address] Note to Pharmacy: Route: ORAL; RxID: [id number] signed by Keke HERNANDEZ on 04/25/2020 at 2:02 PM Name Value Range Interpretation Code Description Data Joyce rce(s) Supporting Document(s) ID Date Data Source [id number] 04/23/2020 02:58:44 PM EDT [facility] Patient History Medical History:Morbid O besitySaccular aneurysmSjogren's Syndrome Elevated LFTsHistory of Cervical CancerUrinary IncontinenceLupus NephritisSystemic LupusHTNEndometriosisHematuria SyndromeVIt D DeficiencyGERDAllergic RhinitisHypothyroidismDepressionHx of Pulmonary EmbolismSurgical History:Tonsillectomy 1977Laparoscopy 1995Cholecystectomy 2001Hernia Repair 2003LEEP x 2, 2014Novasure/EssureFamily History:Father: UnknownMother: HTN, Lupus, Diabetes, ArthritisSister: Crohn'sGrandfather: DM, HTN, Guillain BarreMaternal Grandmother: Breast and Bone CA Assessment & Plan Medication Changes:Added: DEXILANT 60 MG ORAL CAPSULE DELAYED RELEASE-1 tablet once daily Name Value Range Interpretation Code Description Data Joyce rce(s) Supporting Document(s) ID Date Data Source [id number] 04/19/2020 09:53:05 AM EDT [facility] Name Value Range Interpretation Code Description Data Joyce rce(s) Supporting Document(s) Progress Note [facility] [id number] [facility] [file] ID Date Data Source [id number] 04/14/2020 01:10:00 PM EDT [facility] ([facility] Name Value Range Interpretation Code Description Data Joyce rce(s) Supporting Document(s) Prothrombin Time 27.5 s 11.8-14.0 Above high normal M [facility] ([facility] Inr 2.49 Normal (applies to non-numeric resul ts) [facility] ([facility] THERAPUTIC HUMAN INR VALUES INDICATIONS NORMAL RANGES PROPHYLAXIS/TREATMENT OF: VENOUS THROMBOSIS 2.0-3.0 PULMONARY EMBOLISM 2.0-3.0 PREVENTION OF SYSTEMIC EMBOLISM FROM: TISSUE HEART VALVES 2.0-3.0 ACUTE MYOCARDIAL INFARCTION 2.0-3.0 VALVULAR HEART DISEASE 2.0-3.0 ATRIAL FIBRILLATION 2.0-3.0 MECHANICAL VALVES(HIGH RISK) 2.5-3.5 RECURRENT MYOCARDIAL INFARCTION 2.5-3.5 ID Date Data Source [id number] 04/14/2020 01:08:00 PM EDT [facility] ([facility] Name Value Range Interpretation Code Description Data Joyce rce(s) Supporting Document(s) Blood Urea Nitrogen 17 mg/dL 7-18 Normal (applies to non-nume elías results) [facility] ([facility] Glucose, Fasting 86 mg/dL 70-100 Normal (applies to non-numeric results) [facility] ([facility] Glomerular Filtration Rate Laboratory test result Normal (applies to non- numeric results) [facility] ([facility] ) <content>Units are mL/min/1.73 m2</content>
<content></content>
<content>Chronic Kidney Disease Staging per NKF:</content>
<content></content>
<content>Stage I & II GFR >=60 Normal to Mildly Decreased</content>
<content>Stage III GFR 30- 59 Moderately Decreased</content>
<content>Stage IV GFR 15-29 Severely Decreased</content>
<content>Stage V GFR <15 Very Little GFR Left</content>
<content>ESRD GFR <15 on LENDING ACTIVITIES SUPERVISOR</content>
<content></content> Creatinine For GFR 0.85 mg/dL 0.55-1.30 Normal (applies to non -numeric results) [facility] ([facility] Sodium Level 139 meq/L 136-145 Normal (applies to non-numeric res ults) [facility] ([facility] Carbon Dioxide Level 31 meq/L 21-32 Normal (applies to non-num trish results) [facility] ([facility] Potassium Serum 3.9 meq/L 3.5-5.1 Normal (applies to non-numeric results) [facility] ([facility] Chloride Level 106 meq/L 98-107 Normal (applies to non-numeric r esults) [facility] ([facility] Ast/Sgot 13 U/L 7-37 Normal (applies to non-numeric resul ts) [facility] ([facility] Calcium Level 9.2 mg/dL 8.5-10.1 Normal (applies to non-numeric re sults) [facility] ([facility] Anion Gap 2 meq/L 8-16 Below low normal [facility] ( [facility] Alt/SGPT 21 U/L 12-78 Normal (applies to non-numeric resul ts) [facility] ([facility] Total Protein 7.3 GM/DL 6.4-8.2 Normal (applies to non-numeric re sults) [facility] ([facility] Alkaline Phosphatase 68 U/L 45-117 Normal (applies to non-num trish results) [facility] ([facility] Bilirubin,Total 0.3 mg/dL 0.2-1.0 Normal (applies to non-numeric results) [facility] ([facility] Albumin 3.4 GM/DL 3.2-5.2 Normal (applies to non-numeric resul ts) [facility] ([facility] Albumin/Globulin Ratio 0.9 1.2-2.2 Below low normal [facility] ([facility] ID Date Data Source [id number] 04/14/2020 01:08:00 PM EDT [facility] ([facility] Name Value Range Interpretation Code Description Data Joyce rce(s) Supporting Document(s) White Blood Count 4.1 10 4.0-10.0 Normal (applies to non-numeri c results) [facility] ([facility] Hemoglobin 12.7 g/dL 12.0-15.5 Normal (applies to non-numeric resul ts) [facility] ([facility] Red Blood Count 4.97 10 4.00-5.40 Normal (applies to non-numeric results) [facility] ([facility] Hematocrit 40.1 % 36.0-47.0 Normal (applies to non-numeric resul ts) [facility] ([facility] Red Cell Distribution Width 14.3 % 11.5-14.5 Norm al (applies to non-numeric results) [facility] ([facility] ) Mean Corpuscular Volume 80.7 fl 80.0-96.0 Normal ( applies to non-numeric results) [facility] ([facility] ) Mean Corpuscular Hemoglobin 25.6 pg 27.0-33.0 Below low normal [facility] ([facility] Mean Corpuscular HGB Conc 31.7 g/dL 32.0-36.5 Below low normal [facility] ([facility] Neutrophils % 69.7 % 36.0-66.0 Above high normal [facility] NT ([facility] Lymph % 19.3 % 24.0-44.0 Below low normal [facility] ( [facility] Platelet Count, Automated 158 10 150-450 Normal (applies to non-numeric results) [facility] ([facility] ) Baso % 0.2 % 0.0-1.0 Normal (applies to non-numeric resul ts) [facility] ([facility] [place] % 7.6 % 0.0-5.0 Above high normal [facility] ([facility] Eos % 2.7 % 0.0-3.0 Normal (applies to non-numeric resul ts) [facility] ([facility] Lymph # 0.8 10 1.5-5.0 Below low normal [facility] ( [facility] Nucleated Red Blood Cell % 0.0 % 0-0 Normal (applies to n on-numeric results) [facility] ([facility] Neutrophils # 2.9 10 1.5-8.5 Normal (applies to non-numeric re sults) [facility] ([facility] Immature Granulocyte % 0.5 % 0-3.0 Normal (applies to non-n umeric results) [facility] ([facility] Eos # 0.1 10 0.0-0.5 Normal (applies to non-numeric resul ts) [facility] ([facility] Baso # 0.0 10 0.0-0.2 Normal (applies to non-numeric resul ts) [facility] ([facility] [place] # 0.3 10 0.0-0.8 Normal (applies to non-numeric resul ts) [facility] ([facility] ID Date Data Source [id number] 04/03/2020 12:38:00 PM EDT [facility] [address] [place] [address] PHONE: [phone] FAX: [phone] Name .................. : SIMEON GUY Acct Number.................. : [id number] ROOM. ................. : Number ................... : [id number] Stay type ............. : O/P Discharge Date......... ... : 04/01/20 Admit Date ......... : 04/01/20 Admit Phys .................... : NARCISA VELASQUEZ Date of ....... : 1970 Family Phys ................... : [facility] Phone .................. : [phone] Age ................................ : 50 Film# .................. .:[id number] Sex ................................. : F Unsigned transcriptions are preliminary reports and do not represent a medical or legal document [place] [id number] COMPLETE:04/01/20 16:13 KNB [id number] (REASON FOR PROCESS: PAIN RIGHT LOWER EXTREMITY VENOUS DOPPLER ULTRASOUND: COMPARISON: None available. FINDINGS: Duplex Doppler ultrasonography of the major deep venous system of the right lower extremity does not demonstrate a DVT. Flow and compressibility are demonstrated in the common femoral, femoral and popliteal veins. IMPRESSION: No evidence of a DVT demonstrated on the current study. Electronically Reviewed and Signed By Tai Lomax MD , 04/03/20 12:38, AML Transcribe Initials: DZ , Transcribe Date: 04/02/20 00:27, Dictation Date: Copy for: NARCISA BONILLA via fax Copy for: [address] [place] [address] REC Page 1 of 1 Name Value Range Interpretation Code Description Data Joyce rce(s) Supporting Document(s) ID Date Data Source [id number] 03/31/2020 05:18:00 PM EDT [facility] ([email or web address] Name Value Range Interpretation Code Description Data Joyce rce(s) Supporting Document(s) Prothrombin Time 29.1 s 11.8-14.0 Above high normal M [facility] ([facility] Inr 2.68 Normal (applies to non-numeric resul ts) [facility] ([facility] THERAPUTIC HUMAN INR VALUES INDICATIONS NORMAL RANGES PROPHYLAXIS/TREATMENT OF: VENOUS THROMBOSIS 2.0-3.0 PULMONARY EMBOLISM 2.0-3.0 PREVENTION OF SYSTEMIC EMBOLISM FROM: TISSUE HEART VALVES 2.0-3.0 ACUTE MYOCARDIAL INFARCTION 2.0-3.0 VALVULAR HEART DISEASE 2.0-3.0 ATRIAL FIBRILLATION 2.0-3.0 MECHANICAL VALVES(HIGH RISK) 2.5-3.5 RECURRENT MYOCARDIAL INFARCTION 2.5-3.5 ID Date Data Source [id number] 03/31/2020 05:14:00 PM EDT [facility] ([email or web address] Name Value Range Interpretation Code Description Data Joyce rce(s) Supporting Document(s) Glucose, Fasting 106 mg/dL 70-100 Above high normal M [facility] ([facility] Glomerular Filtration Rate Laboratory test result Normal (applies to non- numeric results) [facility] ([facility] ) <content>Units are mL/min/1.73 m2</content>
<content></content>
<content>Chronic Kidney Disease Staging per NKF:</content>
<content></content>
<content>Stage I & II GFR >=60 Normal to Mildly Decreased</content>
<content>Stage III GFR 30- 59 Moderately Decreased</content>
<content>Stage IV GFR 15-29 Severely Decreased</content>
<content>Stage V GFR <15 Very Little GFR Left</content>
<content>ESRD GFR <15 on LENDING ACTIVITIES SUPERVISOR</content>
<content></content> Creatinine For GFR 0.90 mg/dL 0.55-1.30 Normal (applies to non -numeric results) [facility] ([facility] Blood Urea Nitrogen 11 mg/dL 7-18 Normal (applies to non-nume elías results) [facility] ([facility] Sodium Level 141 meq/L 136-145 Normal (applies to non-numeric res ults) [facility] ([facility] Potassium Serum 3.7 meq/L 3.5-5.1 Normal (applies to non-numeric results) [facility] ([facility] Chloride Level 106 meq/L 98-107 Normal (applies to non-numeric r esults) [facility] ([facility] Carbon Dioxide Level 29 meq/L 21-32 Normal (applies to non-num trish results) [facility] ([facility] Anion Gap 6 meq/L 8-16 Below low normal [facility] ( [facility] Calcium Level 8.6 mg/dL 8.5-10.1 Normal (applies to non-numeric re sults) [facility] ([facility] Ast/Sgot 14 U/L 7-37 Normal (applies to non-numeric resul ts) [facility] ([facility] Alt/SGPT 19 U/L 12-78 Normal (applies to non-numeric resul ts) [facility] ([facility] Total Protein 6.9 GM/DL 6.4-8.2 Normal (applies to non-numeric re sults) [facility] ([facility] Alkaline Phosphatase 70 U/L 45-117 Normal (applies to non-num trish results) [facility] ([facility] Bilirubin,Total 0.4 mg/dL 0.2-1.0 Normal (applies to non-numeric results) [facility] ([facility] Albumin/Globulin Ratio 1.0 1.2-2.2 Below low normal [facility] ([facility] Albumin 3.5 GM/DL 3.2-5.2 Normal (applies to non-numeric resul ts) [facility] ([facility] ID Date Data Source [id number] 03/31/2020 05:14:00 PM EDT [facility] ([facility] Name Value Range Interpretation Code Description Data Joyce rce(s) Supporting Document(s) Red Blood Count 4.66 10 4.00-5.40 Normal (applies to non-numeric results) [facility] ([facility] Hematocrit 37.6 % 36.0-47.0 Normal (applies to non-numeric resul ts) [facility] ([facility] White Blood Count 5.1 10 4.0-10.0 Normal (applies to non-numeri c results) [facility] ([facility] Hemoglobin 11.9 g/dL 12.0-15.5 Below low normal [facility] ( [facility] Mean Corpuscular HGB Conc 31.6 g/dL 32.0-36.5 Below low normal [facility] ([facility] Mean Corpuscular Volume 80.7 fl 80.0-96.0 Normal ( applies to non-numeric results) [facility] ([facility] ) Mean Corpuscular Hemoglobin 25.5 pg 27.0-33.0 Below low normal [facility] ([facility] Neutrophils % 80.1 % 36.0-66.0 Above high normal [facility] ([facility] Lymph % 10.8 % 24.0-44.0 Below low normal [facility] ( [facility] Platelet Count, Automated 187 10 150-450 Normal (applies to non-numeric results) [facility] ([facility] ) Red Cell Distribution Width 14.6 % 11.5-14.5 Above high normal [facility] ([facility] Eos % 2.2 % 0.0-3.0 Normal (applies to non-numeric resul ts) [facility] ([facility] Baso % 0.2 % 0.0-1.0 Normal (applies to non-numeric resul ts) [facility] ([facility] [place] % 6.3 % 0.0-5.0 Above high normal [facility] ([facility] Immature Granulocyte % 0.4 % 0-3.0 Normal (applies to non-n umeric results) [facility] ([facility] Lymph # 0.6 10 1.5-5.0 Below low normal [facility] ( [facility] Neutrophils # 4.1 10 1.5-8.5 Normal (applies to non-numeric re sults) [facility] ([facility] Nucleated Red Blood Cell % 0.0 % 0-0 Normal (applies to n on-numeric results) [facility] ([facility] Baso # 0.0 10 0.0-0.2 Normal (applies to non-numeric resul ts) [facility] ([facility] Eos # 0.1 10 0.0-0.5 Normal (applies to non-numeric resul ts) [facility] ([facility] [place] # 0.3 10 0.0-0.8 Normal (applies to non-numeric resul ts) [facility] ([facility] ID Date Data Source [id number] 03/21/2020 12:00:00 AM EDT [facility] Scarlet Garrett MD Patient Name: SHERIN HENDRIX [facility] Date of : 1970[place] [address] Date of Exam: 03/21/2020#: Fax: [phone] EXAM: MRI ANKLE RIGHT WITHOUT CONTRASTCLINICAL INFORMATION: Status post twisting injury two days ago.3T multiplanar MRI imaging of the right ankle was obtained using varioussequences.There are no prior right ankle MRI's for comparison.The tendons of the tibialis anterior, extensor hallucis and extensordigitorum muscles are intact, however, slight T2 hypersignal is seen withinthe extensor digitorum tendon without abnormal peritendinous fluid. Thereis abnormal T2 hypersignal and enlargement of the posterior tibial tendonwith increased fluid seen surrounding that tendon. The flexor digitorumand flexor hallucis tendons are intact and of normal appearing low signalthroughout, however, there is increased fluid seen surrounding the flexorhallucis tendon. The Achilles tendon is intact and of normal appearing lowsignal throughout. The peroneal tendons are intact and of normal appearinglow signal throughout. The anterior and posterior/inferior tibiofibularligaments are very poorly demarcated and I cannot confirm integrity of theanterior/inferior tibiofibular ligament. The anterior and posteriortalofibular ligaments are intact. The calcaneofibular ligament is intact.T2 hypersignal is seen within and surrounding the talofibular l igament.The ligaments within the sinus tarsi are poorly demarcated. The sinustarsi fat signal is suboptimal and T2 hypersignal is seen within the sinustarsi. The deltoid ligament complex is intact. The subtalar joints arewithin normal limits. There is no cystic degeneration seen involving thelateral talar process and there is no cyst formation involving the oscalcis deep to the angle of [place], however, there is a heel valgusdeformity. The chondral surfaces of the talar dome and tibial plafond aresmooth and without abnormal chondral or subchondral signal. There aredegenerative changes through out the ankle and mid-foot region.IMPRESSION:1. There is a partial tear of the tibialis posterior tendon which appearssomewhat high-grade.2. Abnormal peritendinous fluid as described above consistent withtenosynovitis, possibly secondary to trauma.3. Minimal signal changes and increased peritendinous fluid involving theextensor digitorum tendon which needs to be correlated clinically for pointtenderness as well as function.4. Severe sprain which appears to be superimposed upon chronic scarformation involving the calcaneofibular ligament.5. Integrity of the anterior/inferior tibiofibular ligament cannot beconfirmed and I cannot rule out the possibility of entrapment syndrome.6. 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 Other findings as described above.Accredited by the [employer] in [place] you for referring BROOKS HENDRIX to our office. Electronically Signed - KORY PLATT DO 03/26/20 15:04 Name Value Range Interpretation Code Description Data Joyce rce(s) Supporting Document(s) ID Date Data Source [id number] 03/17/2020 10:57:00 PM EDT [facility] 1 OrderSheet [facility] [address] [place] [address] Phone #: ext- [phone] 03/17/2020 22:30 Patient: BROOKS HENDRIX Sex: F : 1970 Age: 50yWEIGHT:149.6 kg HEIGHT:68 inches BMI:50.2ALLERGIES: Bactrum, Doxycylin, Erythromycin, Imipramine, Methotrexate, Topamax, UltramCHIEF COMPLAINT: skin rash, insect biteDIAGNOSIS: Insect bite - wound, Synovial cyst of popliteal spaceLAB ORDERSOrder Description Priority Entered Acknowledged InitialedCB w Diff STAT 23:05 03/17/2020 23:06 Allen Wills Riccardo Laura R.N. M.D.;CMP STAT 23:03/17/2020 23:06 Allen Wills Riccardo Laura R.N. M.D.;PT/PTT STAT 23:03/17/2020 23:06 Allen Wills Riccardo Laura R.N. M.D.;D-Dimer STAT 23: 23:06 Allen Wills Riccardo Laura R.N. M.D.;DIAGNOSTIC STUDY ORDERSOrder Description Priority Entered Acknowledged InitialedUS Lower Ext STAT 23:03/17/2020 23:06 Elma,Venous Left Sneha Villalobos R.N.(Oxygen?(No)) Arash; Reason for Study: Pain, Limb, Swelling, LimbMEDICATION/IV/DRIP/FLUID ORDERSOrder Description Priority Entered Acknowledged InitialedGENERAL ORDERSOrder Description Priority Entered Acknowledged Initialed[Electronically signed by Saranya Wills R.N. (00:03/18/2020)][Electronically signed by Sneha Villalobos M.D. (00:03/18/2020)][Electronically locked by Saranya Wills R.N. (:03/18/2020)] Name Value Range Interpretation Code Description Data Joyce rce(s) Supporting Document(s) ID Date Data Source [id number] 03/17/2020 10:57:00 PM EDT [facility] 1 Medication Reconciliation Report [facility] [address] [place] [address] Phone #: ext- [phone] 03/17/2020 22:30 Patient: BROOKS HENDRIX Sex: F : 1970 Age: 50yWeight: 149.6 kgHeight/Length: 68 in.BMI: 50.2ALLERGIES: Bactrum, Doxycylin, Erythromycin, Imipramine, Methotrexate, Topamax, UltramThe patient's Home Medications are listed below:CONTINUE TAKING THE FOLLOWING MEDICATIONS: Azelastine HCl Nasal, prn Bisoprolol Fumarate Oral (5 mg) 1 tablet, daily Calcium Citrate + Oral 250 mg, 2x a day CellCept Oral (500 mg) 2 tablets, 2x a day Dexilant Dexilant Oral (60 mg) 1 capsule, daily Fish Oil + D3 Oral (7701-0941 mg-unit) 1 capsule, daily Flonase Allergy Relief Nasal, daily Levothyroxine Sodium Oral (100 mcg) 1 tablet, daily Magnesium Oral 400 mg, daily Methocarbamol Oral (500 mg) 1 tablet, prn Potassium Oral 1 tablet, 2x a day predniSONE Oral (5 mg) 1 tablet, daily Riboflavin Oral (100 mg) 2 tablets, 2x a day Symbicort Inhalation, 2x a day 2 Medication Reconciliation Report [facility] [address] [place] [address] Phone #: ext- [phone] 03/17/2020 22:30 Patient: BROOKS HENDRIX Sex: F : 1970 Age: 50y Vitamin D Oral (1000 unit) 1 tablet, daily Vitamin K2 Oral (100 mcg) 1 capsule, daily Warfarin Sodium Oral (10 mg) 1 tablet, dailyThe source(s) of the original Home Medication information:Not obtained.The following Medications were given to the patient in the Emergency Department:None.The following Medications were prescribed to the patient:None. Name Value Range Interpretation Code Description Data Joyce rce(s) Supporting Document(s) ID Date Data Source [id number] 03/17/2020 10:57:00 PM EDT [facility] 1 Medication Administration Record [facility] [address] [place] [address] Phone #: ext- [phone] 03/17/2020 22:30 Patient: BROOKS HENDRIX Sex: F : 1970 Age: 50yWeight: 149.6 kgHeight/Length: 68 inBMI: 50.2ALLERGIES: Bactrum, Imipramine, Doxycylin, Erythromycin, Methotrexate, Topamax, UltramDate/Time Medication Administered Medication Ordered Name Value Range Interpretation Code Description Data Joyce rce(s) Supporting Document(s) ID Date Data Source [id number] 03/17/2020 10:57:00 PM EDT [facility] 1 General Instructions [facility] [address] [place] [address] Phone #: [phone]- [phone] 03/17/2020 22:30 Patient: BROOKS HENDRIX Sex: F : 1970 Age: 50yMultiple mosquito bites to the right lower leg and left lower leg. Local allergic reaction.Intact Lloyd's cyst; left knee.INSTRUCTIONSWarnings: Further evaluation is necessary. It is very important to follow up with a healthcare provider.GENERAL WARNINGS: Return or contact your physician immediately if your condition worsens orchanges unexpectedly, if not improving as expected, or if other problems arise. Specifically return if pain,vomiting, bleeding, breathing difficulty or fever greater than 102 degrees F and not controlled byacetaminophen worsens.Your Current Medications: Your current home medications have been reviewed.CONTINUE TAKING THE FOLLOWING MEDICA TIONS:Azelastine HCl Nasal : prn.Bisoprolol Fumarate Oral : Tablet 5 mg, 1 tablet daily.Calcium Citrate + Oral : 250 mg 2x a day.CellCept Oral : Tablet 500 mg, 2 tablets 2x a day.Dexilant*.Dexilant Oral : Capsule Delayed Release 60 mg, 1 capsule daily.Fish Oil + D3 Oral : Capsule 3905-4041 mg-unit, 1 capsule daily.Flonase Allergy Relief Nasal : daily.Levothyroxine Sodium Oral : Tablet 100 mcg, 1 tablet daily.Magnesium Oral : 400 mg daily.Methocarbamol Oral : Tablet 500 mg, 1 tablet, prn.Potassium Oral : 1 tablet 2x a day.predniSONE Oral : Tablet 5 mg, 1 tablet daily.Riboflavin Oral : Tablet 100 mg, 2 tablets 2x a day.Symbicort Inhalation : 2x a day.Vitamin D Oral : Tablet 1000 unit, 1 tablet daily.Vitamin K2 Oral : Capsule 100 mcg, 1 capsule daily.Warfarin Sodium Oral : Tablet 10 mg, 1 tablet daily.Follow-up:Return to the emergency department as needed. Follow up with your healthcare provider in three dayseven if well. Call for an appointment. Reason for referral: evaluation and treatment. Summary of careprovided to patient via paper.Understanding of the discharge instructions verbalized by patient. Expected course of illness, discharge 2 General Instructions [facility] [address] [place] [address] Phone #: ext- [phone] 03/17/2020 22:30 Patient: BROOKS HENDRIX Sex: F : 1970 Age: 50yinstructions, activity level, diet, follow-up appointment and risks and benefits of treatment reviewed withpatient and understanding verbalized. Agrees to plan of care. ADDITIONAL INFORMATIONMosquito BiteThere are many different kinds of mosquitoes. It is only the female mosquito that bites people. Theyneed blood in order to lay their eggs. When a mosquito bites you, it pushes a needle-like mouthpartinto your skin. Then it injects some saliva before sucking your blood. It is the mosquito saliva thatcauses the local reaction you are having.There may be redness, swelling and itching. Some people are more sensitive to mosquito bites thanothers and may feel dizzy and weak.Home care Wash the area with soap and water once a day. Watch for any signs of infection. If itching is a problem, you may use an jqfm-daj-lbnfoem anti-itch spray or cream, such as any medicine with benzocaine in it. You may also put an ice pack on the bite area as needed to relieve pain, itching, or swelling. Use it for 20 minutes every few hours. You can make your own ice pack by putting ice cubes in a plastic bag and wrapping it in a thin towel. If the itching is severe, you may put topical 1% hydrocortisone on the bites twice a day. Don't use this for more than 3 to 5 days. Don't put it on your face or genital area. 3 General Instructions [facility] [address] [place] [address] Phone #: ext- [phone] 03/17/2020 22:30 Patient: BROOKS HENDRIX Sex: F : 1970 Age: 50y Diphenhydramine is an antihistamine available at drug and grocery stores. It may be used to reduce itching if there are multiple bites, unless your doctor gave you prescription antihistamine. Use lower doses during the daytime and higher doses at bedtime since the drug may make you sleepy. Do not use diphenhydramine if you have glaucoma or if you are a man with trouble urinating due to an enlarged prostate. Loratidine is an antihistamine that makes you less sleepy and is a good alternative for daytime use. You may use acetaminophen or ibuprofen to control pain, unless your doctor prescribed another pain medicine. Talk with your doctor before using these medicines if you have chronic liver or kidney disease. Also talk with your doctor if you've ever had a stomach ulcer or GI bleeding.Avoiding mosquito bitesThese are things you can do to prevent mosquito bites: Avoid being outside when mosquitoes are most active in the [place], late afternoon and early evening. If you are outdoors when mosquitoes are active, wear socks, long sleeves, and long pants, and use insect repellent. The most effective insect repellent is DEET (10% to 30%). Children should not use more than 10% strength. Don't put DEET on children's hands because it is toxic. Young children tent to put their hands in their mouth. Don't use DEET on infants. Don't use DEET if you are . You can spray your clothing with a repellent containing DEET or permethrin. If you do this, you do not need to put repellent on the skin under clothing that has been sprayed. The CDC also recommends the following as alternate mosquito repellents: picaridin, [id number], and the plant-based oil of lemon eucalyptus. Mosquitoes lay their eggs in standing water. Remove breeding areas around your home. Dispose of cans, containers and tires that may collect water. Clear your roof gutters and be sure they drain properly. Keep window and door screens in good repair.Follow-up careFollow up with your healthcare provider, or as advised.When to seek medical adviceCall your healthcare provider if any of these occur: Shortness of breath or difficulty breathing Dizziness, weakness or fainting 4 General Instructions [facility] Department [address] [place] [address] Phone #: [phone]- [phone] 03/17/2020 22:30 Patient: BROOKS HENDRIX Sex: F : 1970 Age: 50y Headache, fever, chills, muscle or joint aches, or vomiting New rash Signs of infection: o Spreading redness o Increased pain or swelling o Fever of 100.4F (38C) or higher, or as directed by your healthcare provider o Colored fluid draining from the wound [id number] [employer]. [address] [place] [address]. All rights reserved. This information is not intended as asubstitute for professional medical care. Always follow your healthcare professional's instructions.Lloyd's CystYou have a Lloyd's cyst. This is a lump or bulge in the back of your knee. It is caused when extrajoint fluid flows into a small sac behind the knee. The extra fluid occurs because arthritis or a torncartilage irritates the knee joint.A small Lloyd's cyst often has no symptoms. A larger cyst can cause some knee pain or a feeling ofpressure behind your knee when you try to fully straighten or bend that joint. A Lloyd's cyst can leak,leading fluid to move down into your lower leg. This causes swelling, pain, and redness.Treatment may involve draining the extra fluid. Or medicine may be injected to reduce redness andswelling. If the extra fluid is caused by a torn cartilage, then surgery to repair the cartilage may be the 5 General Instructions [facility] [address] [place] [address] Phone #: ext- [phone] 03/17/2020 22:30 Patient: BROOKS HENDRIX Sex: F : 1970 Age: 50ybest treatment option. If arthritis is the ca use, and it does not get better with treatment, surgery mayneed to address the arthritis and cyst.Home care If you have knee pain, stay off the affected leg as much as possible until the pain eases. Apply an ice pack to the painful area for no more than 20 minutes. Do this every 3 to 6 hours for the first 24 to 48 hours. Keep using ice packs 3 to 4 times a day for the next few days, as needed for pain. To make an ice pack, put ice cubes in a sealed zip-lock plastic bag. Wrap the bag in a clean, thin towel or cloth. Never put ice or an ice pack directly on the skin. If you were given a mvog-ymu-oozk knee brace, you may open the brace to apply ice. Unless told otherwise, you may remove the brace to bathe and sleep. You may use nuzr-iqc-wlpfmhi pain medicine to control pain, unless another medicine was prescribed. Talk with your provider before using these medicines if you have chronic liver or kidney disease, or have ever had a stomach ulcer or macario rointestinal bleeding. If crutches or a walker have been recommended, don't bear full weight on your injured leg until you can do so without pain. Check with your provider before returning to sports or full work duties.Follow-up careFollow up with your healthcare provider within 1 to 2 weeks, or as advised.If X-rays were taken, you will be notified of any new findings that may affect your care.When to seek medical adviceCall your healthcare provider right away if any of these occur: Toes or foot become swollen, cold, blue, numb or tingly Pain or swelling increases Wa rmth or redness appears over the knee Redness, swelling or pain occurs in the calf or lower leg Fever or chills [phone] [employer]. [address] [place] [address]. All rights reserved. This information is not intended as asubstitute for professional medical care. Always follow your healthcare professional's instructions. 6 General Instructions [facility] [address] [place] [address] Phone #: ext- [phone] 03/17/2020 22:30 Patient: BROOKS HENDRIX Sex: F : 1970 Age: 50yYou have been given the following additional information:Mosquito BiteBaker's Cyst(Electronically signed by Sneha Villalobos M.D. 03/18/2020 00:18) Name Value Range Interpretation Code Description Data Joyce rce(s) Supporting Document(s) ID Date Data Source [id number] 03/17/2020 10:57:00 PM EDT [facility] 1 Clinical Report - Nurses [facility] [address] [place] [address] Phone #: ext- [phone] 03/17/2020 22:30 [id number] Sex[facility] : 1970 Age: 50yTRIAGE Historian: patient. Unaccompanied. Triage time: 22:30 03/17/2020. Acuity: LEVEL 4. Chief Complaint: SKIN RASH. Alert. No acute distress. Reported as located on the right leg. This started last night. It is described as mildly itchy. ( Rash to left leg started last night. Pt reports mild itching to back of left leg. Pt also reports left knee stiff and painful. Pt able to ambulate with steady gait. Pt reports she was at a [place] [facility] Tuesday night.). No fever or cough. Not burning. Treatment EYELET ROW MARKER: None. SEPSIS SCREEN: Sepsis Screen negative. No suspected or confirmed signs of infection present. --22:45 03/17/20 Saranya Wills R.N. 22:31 03/17/20. BP: 147/89. MAP: 108. HR: 86. RR: 18. O2 saturation: 100%. Temp: 98.5 F. Pain level now: 11/08. --22:45 03/17/20 Saranya Wills R.N. Weight: 149.6 kg. Height/Length: 68 inches. BMI: 50.2. --22:30 03/17/20 Saranya Wills R.N. Medications Warfarin Sodium Oral (Tablet 10 mg) 1 tablet, daily. --22:36 03/17/20 Saranya Wills R.N. predniSONE Oral (Tablet 5 mg) 1 tablet, daily. --22:37 03/17/20 Saranya Wills R.N. CellCept Oral (Tablet 500 mg) 2 tablets, 2x a day. --22:37 03/17/20 Saranya Wills R.N. Levothyroxine Sodium Oral (Tablet 100 mcg) 1 tablet, daily. --22:37 03/17/20 Saranya Wills R.N. Dexilant. --22:37 03/17/20 Saranya Wills R.N. Dexilant Oral (Capsule Delayed Release 60 mg) 1 capsule, daily. --22:37 03/17/20 Saranya Wills R.N. Vitamin D Oral (Tablet 1000 unit) 1 tablet, daily. --22:38 03/17/20 Saranya Wills R.N. Calcium Citrate + Oral 250 mg, 2x a day. --22:38 03/17/20 Saranya Wills R.N. Fish Oil + D3 Oral (Capsule 1051-0683 mg-unit) 1 capsule, daily. --22:38 03/17/20 Saranya Wills R.N. Vitamin K2 Oral (Capsule 100 mcg) 1 capsule, daily. --22:38 03/17/20 Saranya Wills R.N. Magnesium Oral 400 mg, daily. --22:39 03/17/20 Saranya Wills R.N. Symbicort Inhalation, 2x a day. --22:39 03/17/20 Saranya Wills R.N. Potassium Oral 1 tablet, 2x a day. --22:39 03/17/20 Saranya Wills R.N. Flonase Allergy Relief Nasal, daily. --22:39 03/17/20 Saranya Wills R.N. Azelastine HCl Nasal, as needed. --22:39 03/17/20 Saranya Wills R.N. 2 Clinical Report - Nurses [facility] [address] [place] [address] Phone #: ext- [phone] 03/17/2020 22:30 Patient: BROOKS HENDRIX Sex: F : 1970 Age: 50yRiboflavin Oral (Tablet 100 mg) 2 tablets, 2x a day. --22:40 03/17/20 Saranya Wills R.N.Bisoprolol Fumarate Oral (Tablet 5 mg) 1 tablet, daily. --22:40 03/17/20 Saranya Wills R.N.Methocarbamol Oral (Tablet 500 mg) 1 tablet, as needed. --22:40 03/17/20 Saranya Wills R.N.AllergiesUltram. --22:35 03/17/20 Saranya Wills R.N.Topamax. --22:35 03/17/20 Saranya Wills R.N.Methotre xate. --22:36 03/17/20 Saranya Wills R.N.Erythromycin. --22:36 03/17/20 Saranya Wills R.N.Doxycylin. --22:36 03/17/20 Saranya Wills R.N.Imipramine. --22:36 03/17/20 Saranya Wills R.N.Bactrum. --22:36 03/17/20 Saranya Wills R.N.PROBLEMS:Neuropathy.Migraines.Hypertension.Lyme disease.Sjogren's syndrome (disorder).Lupus pneumonitis.Lupus nephritis.Lupus.Antiphospholipid syndrome.Pulmonary Embolism. --22:43 03/17/20 Saranya Wills R.N.ADDITIONAL SURGERIES:Foot surgery (left).Gallbladder Surgery.Hernia Repair.Hysterectomy.Tonsillectomy. --22:43 03/17/20 Saranya Wilsl R.N.HistoryPAST MEDICAL HX: Immunizations: up-to-date. The patient has had a hysterectomy.SOCIAL HX: Never smoker. No alcohol use or drug use. She was offered HIV testing but declined.Patient education was provided. She was offered hepatitis C testing but declined. Patient education wasprovided. ( COVID screen negative). She has not traveled outside the [place]Infectious disease exposure: No infectious disease exposure. Patient is not a known carrier of tuberculosis,hepatitis, HIV, MRSA or VRE. Patient is not a known carrier of CRE.SELF HARM ASSESSMENT: Self harm assessment was performed. The patient answered "no" to thequestion(s) "Have you recently felt down, depressed, or hopeless?", "Do you have thoughts of harming orkilling yourself?" and "Do you have a plan for harming or killing yourself?". 3 Clinical Report - Nurses [facility] [address] [place] [address] Phone #: ext- [phone] 03/17/2020 22:30 Patient: BROOKS HENDRIX Sex: F : 1970 Age: 50y ABUSE ASSESSMENT: Abuse assessment. The patient had positive responses to the question(s) "Do you feel safe in your home?", "Are you afraid to go home?" and "Has anyone hurt you or threatened to hurt you?". Abuse denied. No suspicion of abuse. NUTRITIONAL RISK ASSESSMENT: The nutritional risk assessment revealed no deficiencies. FUNCTIONAL ASSESSMENT: Functional assessment: no impairments noted. LEARNING NEEDS ASSESSMENT: The learning needs assessment revealed no barriers. FALL RISK ASSESSMENT: Fall risk assessment completed. No risk factors identified. SKIN INTEGRITY ASSESSMENT: Skin integri ty risk assessment completed. No skin integrity risk identified. --22:45 03/17/20 Saranya Wills R.N. Interventions Identification band on patient. To treatment room. --22:45 03/17/20 Saranya Wills R.N.PHYSICAL ASSESSMENT Ambulatory to room. Patient gowned. GENERAL / NEURO / PSYCH: Alert. The patient does not appear to be in acute distress. Oriented X 4. HEENT: Pupils equal, round and reactive to light. Mucous membranes are pink. RESPIRATORY: Respirations not labored. Breath sounds within normal limits. CVS: Capillary refill less than 2 seconds. Pulses within normal limits. GI / : Abdomen nontender. SKIN: Skin is intact, warm, dry and non-tender. Skin rash present- left leg, possible insect bites. Normal skin turgor. --22:45 03/17/20 Saranya Wills R.N.NURSING PROGRESS NOTES Patient gowned. Two patient identifiers checked. Call light placed in reach. Side rails up x 2. Bed placed in lowest position. Brakes of bed on. --22:45 03/17/20 Saranya Wills R.N. Patient returned from sonogram by wheelchair with facilities maintenance technician. --23:53 03/17/20 Saranya Wills R.N.DISPOSITION / DISCHARGE No learning barriers present. Reviewed warnings. Reviewed medication(s). Treatments reviewed. Patient verbalized understanding. Written instructions provided in [place]. The patient was discharged home and unaccompanied at time of discharge. She left ambulatory and via private vehicle. Patient driving. --00:17 03/18/20 Saranya Wills R.N. 00:17 03/18/20. BP: 129/78. MAP: 95. HR: 89. RR: 18. O2 saturation: 98%. Temp: 98.6 F. Pain level now: 0/10. --00:17 03/18/20 Saranya Wills R.N. 4 Clinical Report - Nurses [facility] [address] [place] [address] Phone #: ext- [phone] 03/17/2020 22:30 Patient: BROOKS HENDRIX Sex: F : 1970 Age: 50yLocked/Released at 03/18/2020 00:18 by Saranya Wills R.N. Name Value Range Interpretation Code Description Data Joyce rce(s) Supporting Document(s) ID Date Data Source [id number] 03/17/2020 10:57:00 PM EDT [facility] 1 Clinical Report - Physicians/Mid Levels [facility] [address] [place] [address] Phone #: ext- [phone] 03/17/2020 22:30 Patient: BROOKS HENDRIX Sex: F : 1970 Age: 50y Time Seen: 22:39 03/17/2020; initial patient contact. Arrived- By private vehicle. Historian- patient. Disposition decision: 00:08 03/18/2020.HISTORY OF PRESENT ILLNESS Chief Complaint: SKIN RASH and INSECT BITE. This started 2 days ago and is still present. It was gradual in onset and has been constant. It is described as itchy. It has been located on the left lower extremity. A possible cause has been identified. She had a recent insect bite. (was at [place] [facility] 2 nights ago, had multiple insect/mosquito bites; has 3-4 small hemorrhagic bites left calf area w mild swelling and pain; worried about DVT). Similar symptoms previously. Recent medical care: Not recently seen/assessed.REVIEW OF SYSTEMSNo fever, chills, sore throat, cough or difficulty breathing. No hoarseness, lump in throat, enlarged lymphnodes, headache or eye irritation. No chest pain, abdominal pain, nausea, diarrhea or difficulty withurination. No joint pain or vomiting. All other systems reviewed and are negative.PAST HISTORYSee nurses notes. Tetanus immunization status is up-to-date. Problems: Hypothyroidism. Neuropathy. Migraines. Hypertension. Lyme disease. Sjogren's syndrome (disorder). Lupus pneumonitis. Lupus nephritis. Lupus. Antiphospholipid syndrome. Pulmonary Embolism. Additional Surgeries: Foot surgery (left). Gallbladder Surgery. Hernia Repair. Hysterectomy. 2 Clinical Report - Physicians/Mid Levels [facility] [address] [place] [address] Phone #: ext- [phone] 03/17/2020 22:30 ---- Patient: BROOKS HENDRIX [facility]#: [id number] Sex: F : 1970 Age: 50y Tonsillectomy. Medications: Methocarbamol Oral (Tablet 500 mg) 1 tablet, as needed. Bisoprolol Fumarate Oral (Tablet 5 mg) 1 tablet, daily. Riboflavin Oral (Tablet 100 mg) 2 tablets, 2x a day. Azelastine HCl Nasal, as needed. Flonase Allergy Relief Nasal, daily. Potassium Oral 1 tablet, 2x a day. Symbicort Inhalation, 2x a day. Magnesium Oral 400 mg, daily. Vitamin K2 Oral (Capsule 100 mcg) 1 capsule, daily. Fish Oil + D3 Oral (Capsule 3647-1776 mg- unit) 1 capsule, daily. Calcium Citrate + Oral 250 mg, 2x a day. Vitamin D Oral (Tablet 1000 unit) 1 tablet, daily. Dexilant Oral (Capsule Delayed Release 60 mg) 1 capsule, daily. Dexilant. Levothyroxine Sodium Oral (Tablet 100 mcg) 1 tablet, daily. CellCept Oral (Tablet 500 mg) 2 tablets, 2x a day. predniSONE Oral (Tablet 5 mg) 1 tablet, daily. Warfarin Sodium Oral (Tablet 10 mg) 1 tablet, daily. Allergies: Bactrum. Doxycylin. Erythromycin. Imipramine. Methotrexate. Topamax. Ultram.SOCIAL HISTORYNever smoker. No alcohol use or drug use.ADDITIONAL NOTESThe nursing notes have been reviewed with agreement regarding the chief complaint, HPI, ROS, PMH andpatient medications and allergies.PHYSICAL EXAMVital Signs: 03/17/2020 22:31 BP: 147/89. MAP: 108. HR: 86. RR: 18. O2 saturation: 100%. Temp: 98.5F. Pain level now: 410. Have been reviewed and appear to be correct. Oxygen saturation normal.Appearance: Alert. Oriented X3. No acute distress.Eyes: Pupils equal, round and reactive to light. Conjunctivae and eyelids normal.ENT: Nose normal. Pharynx normal.Neck: Neck supple. 3 Clinical Report - Physicians/Mid Levels [facility] Emergency Department [address] [place] [address] Phone #: ext- [phone] 03/17/2020 22:30 [id number] Sex[facility] F : 1970 Age: 50y CVS: Normal heart rhythm and rate. Heart sounds normal. Respiratory: No respiratory distress. Breath sounds normal. Chest nontender. Abdomen: Nontender. No organomegaly. Skin: Skin warm and dry. Normal skin color. Normal skin turgor. (4-5 small hemorrhagic macules left mid-calf and 2 left anterior tibia area c/w w bites). Extremities: Mild left-sided calf tenderness. Mild non-pitting edema of the left lower extremity involving the ankle and lower leg. (Ilsa test is negative). Neuro: Oriented X 3. No motor deficit. No sensory deficit.LABS, X- RAYS, AND EKGLower Extremity Sonography: Negative exam on the left side. REPORT SUBMISSION DATE: Mar 11:57:21 PM EDT NAME: BROOKS HENDRIX STUDY INITIATED: Mar 17, 2020 11:19:51 PM EDT STUDY RECEIVED: Mar 17, 2020 11:48:58 PM EDT GENDER: F MODALITY TYPE: US : 70 DESCRIPTION: US DOPPLER UNILATERAL VENOUS LEG LT INSTITUTION: [facility] ORDERING PHYSICIAN: Sneha Villalobos PATIENT HISTORY: ULTRASOUND LEFT LOWER EXTREMITY DOPPLER VENOUS COMPARISON: None HISTORY: US DOPPLER UNILATERAL VENOUS LEG LT TECHNIQUE: Grayscale and color Doppler ultrasound images through the left lower extremity. FINDINGS: Left common femoral, femoral, popliteal veins are patent and compressible. Visualized calf veins are unremarkable. Normal venous waveforms are seen. There is a probable Lloyd's cyst measuring 2.6 x 2.5 x 1.1 cm. Impression 4 Clinical Report - Physicians/Mid Levels [facility] [address] [place] [address] Phone #: ext [phone] 03/17/2020 22:30 Patient: BROOKS HENDRIX Sex: F : 1970 Age: 50yNo evidence of deep venous thrombosis in the visualized left lower extremity veins.Electronically signed on Mar 17, 2020 11:57:21 PM EDT by:Aurea House, [employer]. Study type: utilized duplex sonography. The exam wasperformed by a gate technician. The study was interpreted by the radiologist.Laboratory Tests: Laboratory tests have been ordered, with results reviewed and considered in themedical decision making process.CBC w Diff: (FATEMEH: 03/17/2020 23:17) ( MsgRcvd 03/17/2020 23:23) Final results Test Result Flag Units (Reference) CBC W/AUTOMATED DIFF COMPLETE BLOOD COUNT WBC 4.7 10/uL (4.2 - 11.0) RBC 4.95 10/uL (4.20 - 5.40) HEMOGLOBIN 12.3 g/dL (12.0 - 16.0) HEMATOCRIT 39.1 % (37.0 - 47.0) MCV 79.0 L fL (81.0 - 101) MCH 24.8 L pg (27.0 - 34.0) MCHC 31.5 g/dL (31.0 - 36.0) RDW 14.4 % (11.5 - 14.5) PLATELETS 174 10/uL (150 - 450) MPV 8.8 fL (7.4 - 10.4) NEUT 77.1 % (37.0 - 80.0) LYMPH 13.8 L % (25.0 - 40.0) MONO 6.0 % (3.0 - 8.0) EOS 2.3 % (0.0 - 7.0) BASO 0.4 % (0.0 - 2.5) %IG 0.4 H % (0.0 - 0.0) %NRBC 0.0 % (0.0 - 0.0) #NEUT 3.62 10/uL (2.00 - 6.90) #LYMPH 0.65 10/uL (0.60 - 3.40) #MONO 0.28 10/uL (0.00 - 0.90) #EOS 0.11 10/uL (0.00 - 0.70) #BASO 0.02 10/uL (0.00 - 0.20) #IG 0.02 10/uL (0.00 - 0.10) #NRBC 0.00 10/uL (0.00 - 0.00) MANUAL DIFF NOT INDICATED RBC MORPH NOT INDICATEDCMP: (FATEMEH: 03/17/2020 23:17) ( MsgRcvd 03/17/2020 23:45) Final results Test Result Flag Units (Reference) COMPREHENSIVE METABOLIC PANEL COMPREHENSIVE METABOLIC PANEL SODIUM 135 mEq/L (134 - 153) POTASSIUM 3.7 mEq/L (3.6 - 5.0) CHLORIDE 101 mEq/L (98 - 107) CO2 24 MEQ/L (22 - 30) GLUCOSE 108 MG/DL (65 - 110) BUN 15 MG/DL (7 - 21) CREATININE 0.9 MG/DL (0.7 - 1.5) BUN/CREAT 17 (8 - 27) TOTAL PROTEIN 7.3 G/DL (6.3 - 8.2) ALBUMIN 4.0 G/DL (3.9 - 5.0) GLOBULIN 3.3 H GM/DL (2.4 - 3.2) A/G RATIO 1.2 (0.8 - 2.0) 5 Clinical Report - Physicians/Mid Levels [facility] [address] [place] [address] Phone #: ext- [phone] 03/17/2020 22:30 Patient: BROOKS HENDRIX Sex: F : 1970 Age: 50y CALCIUM 8.9 MG/DL (8.4 - 10.2) TOTAL BILI <0.7 MG/DL (0.2 - 1.3) ALKALINE PHOS 70 U/L (38 - 126) SGOT/AST 16 U/L (5 - 40) SGPT/ALT 15 U/L (7 - 56) ANION GAP 10.0 mmol/L (8.0 - 16.0) AGE 50 yrs NON-AA GFR >60 mL/min AFR AMER GFR >60 mL/min Male GFR Interprentation 20-49 yrs >60 mL/min Mxyhcs73-15 yrs >56 mL/min Normal 60-69 yrs >49 mL/min Normal 70-79yrs>42 mL/min Normal 80 and above >35 mL/min Normal Female GFRInterpretation 20-39 yrs >60 mL/min Normal 40-49 yrs >58 mL/minNormal 50-59 yrs >51 mL/min Normal 60-69 yrs >45 mL/min Dbpdww68-06 yrs >39 mL/min Normal 80 and above >32 mL/min NormalPT/PTT: (FATEMEH: 03/17/2020 23:17) ( [facility]/17/[facility] 23:45) Final results Test Result Flag Units (Reference) PROTIME 26.8 H SECONDS (11.0 - 15.5) INR 2.43 H (0.93 - 1.23) PTT 38.5 H SECONDS (24.8 - 36.7) \\BLDo\\INR INTERPRETATION\\BLDx\\ Therapeutic range for Coumadin andrelated oral anticoagulants. -International Normalized Ratio (INR): 2.0 - 3.0 for VenousThrombosis, Pulmonary Embolus, Tissue heart valves, Acute SD Atrial Fibrillation, Valvular heart diseaseand recurrent Systemic Embolism. -International Normalized Ratio (INR): 2.5 - 3.5 forMechanical Prosthetic valve.D-Dimer: ( FATEMEH: 03/17/2020 23:17) ( MsgRcvd 03/17/2020 23:45) Final results Test Result Flag Units (Reference) D-DIMER QUANT <0.27 ug/mL (0.27 - 0.50)US Lower Ext Venous Left: (FATEMEH: 03/17/2020 23:05) ( MsgRcvd 03/17/2020 23:58) Final results Exam US [place]PLER [place] [address] ---------NAME--------- NUMBER SEX AGE ADMIT DISC. XRAY# F/C TYPE PARKINSON BROOKS [id number] F 50 03/17/20 [id number] NA E/R DATE OF : 1970 M/R# [id number] #: [id number] TR-05 LOCATION: EMERGENCY DEPT TRANSCRIBED: 03/17/20 23:57 IF US DOPPLER UNILATERAL VENOUS [id number] COMPLETED:03/17/20 23:47 ADB [id number] Reason(s): Pain, Limb Swelling, Limb PHYSICIAN: ALLEN VERA R A D I O L O G Y R E P O R T PATIENT HISTORY: US DOPPLER UNILATERAL VENOUS LEG LT ULTRASOUND LEFT LOWER EXTREMITY DOPPLER VENOUS COMPARISON: None HISTORY: US DOPPLER UNILATERAL VENOUS LEG LT 6 Clinical Report - Physicians/Mid Levels [facility] [address] [place] [address] Phone #: ext- [phone] 03/17/2020 22:30 Patient: BROOKS HENDRIX Sex: F : 1970 Age: 50y TECHNIQUE: Grayscale and color Doppler ultrasound images through the left lower extremity. FINDINGS: Left common femoral, femoral, popliteal veins are patent and compressible. Visualized calf veins are unremarkable. Normal venous waveforms are seen. There is a probable Lloyd's cyst measuring 2.6 x 2.5 x 1.1 cm. IMPRESSIONS: No evidence of deep venous thrombosis in the visualized left lower extremity veins. Electronically Signed By: Edd Wan M.D. , Radiologist Date/Time: 03/17/20 23:57.P OMKAR AND PROCEDURESCourse of Care: 23:53 03/17/20. workup all in and reviewed; platelets nml, INR therapeutic, d-dimernegative, pt returned from LLE US, waiting for results 00:03 03/18/20. LLE Venous Doppler US is negative for DVT, but probable small Lloyd's cyst; so probable insect bites; will d/c accordingly. Patient counseled in person regarding the patient's stable condition, test results, diagnosis and need for follow-up. Patient agrees with plan of care. Disposition: Condition: good and stable. Discharge decision based on the following: patient's condition is stable; patient's condition is improved; patient is ambulatory; patient is active; patient drinking fluids; patient eating; patient's pain is controlled; patient's exam is improved; no abnormal test results; improving condition on repeat evaluation; social support is good; transportation is available; follow-up is available; clinical impression is consistent with outpatient treatment.CLINICAL IMPRESSION Multiple mosquito bites to the right lower leg and left lower leg. Local allergic reaction. Intact Lloyd's cyst; left knee.INSTRUCTIONS 7 Clinical Report - Physicians/Mid Levels [facility] Department [address] [place] [address] Phone #: ext- [phone] 03/17/2020 22:30 Patient: BROOKS HENDRIX Sex: F : 1970 Age: 50y Warnings: Further evaluation is necessary. It is very important to follow up with a healthcare provider. GENERAL WARNINGS: Return or contact your physician immediately if your condition worsens or changes unexpectedly, if not improving as expected, or if other problems arise. Specifically return if pain, vomiting, bleeding, breathing difficulty or fever greater than 102 degrees F and not controlled by acetaminophen worsens. Your Current Medications: Your current home medications have been reviewed. CONTINUE TAKING THE FOLLOWING MEDICATIONS: Azelastine HCl Nasal : prn. Bisoprolol Fumarate Oral : Tablet 5 mg, 1 tablet daily. Calcium Citrate + Oral : 250 mg 2x a day. CellCept Oral : Tablet 500 mg, 2 tablets 2x a day. Dexilant*. Dexilant Oral : Capsule Delayed Release 60 mg, 1 capsule daily. Fish Oil + D3 Oral : Capsule 9172-0538 mg-unit, 1 capsule daily. Flonase Allergy Relief Nasal : daily. Levothyroxine Sodium Oral : Tablet 100 mcg, 1 tablet daily. Magnesium Oral : 400 mg daily. Methocarbamol Oral : Tablet 500 mg, 1 tablet, prn. Potassium Oral : 1 tablet 2x a day. predniSONE Oral : Tablet 5 mg, 1 tablet daily. Riboflavin Oral : Tablet 100 mg, 2 tablets 2x a day. Symbicort Inhalation : 2x a day. Vitamin D Oral : Tablet 1000 unit, 1 tablet daily. Vitamin K2 Oral : Capsule 100 mcg, 1 capsule daily. Warfarin Sodium Oral : Tablet 10 mg, 1 tablet daily. Follow-up: Return to the emergency department as needed. Follow up with your healthcare provider in three days even if well. Call for an appointment. Reason for referral: evaluation and treatment. Summary of care provided to patient via paper. Understanding of the discharge instructions verbalized by patient. Expected course of illness, discharge instructions, activity level, diet, follow-up appointment and risks and benefits of treatment reviewed with patient and understanding verbalized. Agrees to plan of care.(Electronically signed by Sneha Villalobos M.D. 03/18/2020 00:18) Name Value Range Interpretation Code Description Data Joyce rce(s) Supporting Document(s) ID Date Data Source [id number] 03/17/2020 11:57:00 PM EDT [facility] [address] [place] [id number] ---------NAME--------- NUMBER SEX AGE ADMIT DISC. XRAY# F/C TYPE PARKINSON BROOKS [id number] F 50 03/17/20 [id number] NA E/R DATE OF : 1970 M/R# [id number] #: [id number] TR-05 LOCATION: EMERGENCY DEPT TRANSCRIBED: 03/17/20 23:57 IF US DOPPLER UNILATERAL VENOUS [id number] COMPLETED:03/17/20 23:47 ADB [id number] Reason(s): Pain, Limb Swelling, Limb PHYSICIAN: ALLEN VERA R A D I O L O G Y R E P O R T =======PATIENT HISTORY:US DOPPLER UNILATERAL VENOUS LEG LTULTRASOUND LEFT LOWER EXTREMITY DOPPLER VENOUSCOMPARISON: NoneHISTORY: US DOPPLER UNILATERAL VENOUS LEG LTTECHNIQUE:Grayscale and color Doppler ultrasound images through the left lower extremity.FINDINGS:Left common femoral, femoral, popliteal veins are patent and compressible.Visualized calf veins are unremarkable.Normal venous waveforms are seen.There is a probable Lloyd's cyst measuring 2.6 x 2.5 x 1.1 cm.IMPRESSIONS:No evidence of deep venous thrombosis in the visualized left lower extremityveins.Electronically Signed By:Edd Wan M.D. , RadiologistDate/Time: 03/17/20 23:57 Name Value Range Interpretation Code Description Data Joyce rce(s) Supporting Document(s) ID Date Data Source [id number] 03/17/2020 11:17:00 PM EDT [facility] Name Value Range Interpretation Code Description Data Joyce rce(s) Supporting Document(s) Sodium 135 meq/L 134-153 [facility] Comprehensive Metabo Laboratory test result [facility] ([facility] COMPREHENSIVE METABOLIC PANEL Glucose 108 mg/dL 65-110 [facility] ([facility] Co2 24 meq/L 22-30 [facility] ([facility] Potassium 3.7 meq/L 3.6-5.0 [facility] ([facility] Chloride 101 meq/L 98-107 [facility] ([facility] Creatinine 0.9 mg/dL 0.7-1.5 [facility] ([facility] BUN/Creat 17 8-27 [facility] ([facility] BUN 15 mg/dL 7-21 [facility] ([facility] Total Protein 7.3 g/dL 6.3-8.2 [facility] ([facility] Globulin 3.3 GM/DL 2.4-3.2 Above high normal [facility] ([facility] Albumin 4.0 g/dL 3.9-5.0 [facility] ([facility] A/G Ratio 1.2 0.8-2.0 [facility] ([facility] Sgot/Ast 16 U/L 5-40 [facility] ([facility] Alkaline Phos 70 U/L 38-126 [facility] Total Bili Laboratory test result 0.2-1.3 ME D[facility] ([facility] Calcium 8.9 mg/dL 8.4-10.2 [facility] Anion Gap 10.0 mmol/L 8.0-16.0 [facility] ([facility] SGPT/Alt 15 U/L 7-56 [facility] Age 50 yrs [facility] ([facility] Afr Amer GFR Laboratory test result [facility] ([facility] Male GFR Interprentation 20-49 yrs >60 mL/min Normal 50-59 yrs >56 mL/min Normal 60-69 yrs >49 mL/min Normal 70-79yrs >42 mL/min Normal 80 and above >35 mL/min Normal Female GFR Interpretation 20-39 yrs >60 mL/min Normal 40-49 yrs >58 mL/min Normal 50-59 yrs >51 mL/min Normal 60-69 yrs >45 mL/min Normal 70-79 yrs >39 mL/min Normal 80 and above >32 mL/min Normal Non-Aa GFR Laboratory test result [facility] ([facility] ID Date Data Source [id number] 03/17/2020 11:17:00 PM EDT [facility] ([facility] Name Value Range Interpretation Code Description Data Joyce rce(s) Supporting Document(s) Fibrin D-dimer [Presence] in Platelet poor plasma Laboratory test result 0.27-0.50 [facility] ID Date Data Source [id number] 03/17/2020 11:17:00 PM EDT [facility] ([facility] Name Value Range Interpretation Code Description Data Joyce rce(s) Supporting Document(s) Protime 26.8 s 11.0-15.5 Above high normal [facility] ([facility] Inr 2.43 0.93-1.23 Above high normal [facility] ([facility] PTT 38.5 s 24.8-36.7 Above high normal [facility] ([facility] \\BLDo\\INR INTERPRETATION\\BLDx\\ Therapeutic range for Coumadin and related oral anticoagulants. -International Normalized Ratio (INR): 2 .0 - 3.0 for Venous Thrombosis, Pulmonary Embolus, Tissue heart valves, Acute SD Atrial Fibrillation, Valvular heart disease and recurrent Systemic Embolism. -International Normalized Ratio (INR): 2 .5 - 3.5 for Mechanical Prosthetic valve. ID Date Data Source [id number] 03/17/2020 11:17:00 PM EDT [facility] ([facility] Name Value Range Interpretation Code Description Data Joyce rce(s) Supporting Document(s) CBC W/Automated Diff Laboratory test result [facility] ([facility] COMPLETE BLOOD COUNT RBC 4.95 10^6/uL 4.20-5.40 [facility] ([facility] WBC 4.7 10^3/uL 4.2-11.0 [facility] Hemoglobin 12.3 g/dL 12.0-16.0 [facility] MCV 79.0 fL 81.0-101 Below low normal [facility] ( [facility] MCH 24.8 pg 27.0-34.0 Below low normal [facility] ( [facility] Hematocrit 39.1 % 37.0-47.0 [facility] MCHC 31.5 g/dL 31.0-36.0 [facility] RDW 14.4 % 11.5-14.5 [facility] Platelets 174 10^3/uL 150-450 [facility] MPV 8.8 fL 7.4-10.4 [facility] Lymph 13.8 % 25.0-40.0 Below low normal [facility] ( [facility] Neut 77.1 % 37.0-80.0 [facility] [place] 6.0 % 3.0-8.0 [facility] %Ig 0.4 % 0.0-0.0 Above high normal [facility] Baso 0.4 % 0.0-2.5 [facility] %NRBC 0.0 % 0.0-0.0 [facility] Eos 2.3 % 0.0-7.0 [facility] #Lymph 0.65 10^3/uL 0.60-3.40 [facility] ([facility] #Neut 3.62 10^3/uL 2.00-6.90 [facility] ([facility] #[place] 0.28 10^3/uL 0.00-0.90 [facility] ([facility] #Ig 0.02 10^3/uL 0.00-0.10 [facility] ([facility] #Baso 0.02 10^3/uL 0.00-0.20 [facility] ([facility] #NRBC 0.00 10^3/uL 0.00-0.00 [facility] ([facility] #[place]os 0.11 10^3/uL 0.00-0.70 [facility] ([facility] RBC Morph Laboratory test result ME ALLI ([facility] Manual Diff Laboratory test result M RAVEN ([facility] ID Date Data Source [id number] 03/17/2020 11:45:00 PM EDT [facility] Name Value Range Interpretation Code Description Data Joyce rce(s) Supporting Document(s) COMPREHENSIVE METABOLIC PANEL [facility] COMPREHENSIVE METABOLIC PANEL Sodium [Moles/volume] in Serum or Plasma 135 mEq/L 134 - 153 [facility] Potassium [Moles/volume] in Serum or Plasma 3.7 mEq/L 3.6 - 5.0 [facility] Chloride [Moles/volume] in Serum or Plasma 101 mEq/L 98 - 107 [facility] Carbon dioxide, total [Moles/volume] in Serum or Plasma 24 MEQ/L 22 - 30 [facility] Glucose [Mass/volume] in Serum or Plasma 108 MG/DL 65 - 110 [facility] BUN 15 MG/DL 7 - 21 [facility] Creatinine [Mass/volume] in Serum or Plasma 0.9 MG/DL 0.7 - 1.5 [facility] BUN/CREAT 17 8 - 27 [facility] Protein [Mass/volume] in Serum or Plasma 7.3 G/DL 6.3 - 8.2 [facility] Albumin [Mass/volume] in Serum or Plasma 4.0 G/DL 3.9 - 5.0 [facility] Globulin [Mass/volume] in Serum by calculation 3.3 GM/DL 2.4 - 3.2 H [facility] A/G RATIO 1.2 0.8 - 2.0 [facility] Calcium [Mass/volume] in Serum or Plasma 8.9 MG/DL 8.4 - 10.2 [facility] Bilirubin.total [Mass/volume] in Serum or Plasma <0.7 MG/DL 0.2 - 1.3 [facility] Alkaline phosphatase [Enzymatic activity/volume] in Serum or Plasma 70 U/L 38 - 126 [facility] Aspartate aminotransferase [Enzymatic activity/volume] in Serum or Plasma 16 U/L 5 - 40 [facility] Alanine aminotransferase [Enzymatic activity/volume] in Seru m or Plasma 15 U/L 7 - 56 [facility] Anion gap 3 in Serum or Plasma 10.0 mmol/L 8.0 - 16.0 [facility] AGE 50 yrs [facility] NON-AA GFR >60 mL/min [facility] ital AFR AMER GFR >60 mL/min [facility] Male GFR In terprentation 20-49 yrs >60 mL/min Normal 50-59 yrs >56 mL/min Normal 60-69 yrs >49 mL/min Normal 70-79yrs >42 mL/min Normal 80 and above >35 mL/min Normal Female GFR Interpretation 20-39 yrs >60 mL/min Normal 40-49 yrs >58 mL/min Normal 50-59 yrs >51 mL/min Normal 60-69 yrs >45 mL/min Normal 70-79 yrs >39 mL/min Normal 80 and above >32 mL/min Normal ID Date Data Source [id number] 03/17/2020 11:45:00 PM EDT [facility] Name Value Range Interpretation Code Description Data Joyce rce(s) Supporting Document(s) Fibrin D-dimer FEU [Mass/volume] in Platelet poor plasma <0. 27 ug/mL 0.27 - 0.50 [facility] ID Date Data Source [id number] 03/17/2020 11:45:00 PM EDT [facility] Name Value Range Interpretation Code Description Data Joyce rce(s) Supporting Document(s) Prothrombin time (PT) 26.8 SECONDS 11.0 - 15.5 [facility] INR in Platelet poor plasma by Coagulation assay 2.43 0.93 - 1. 23 H [facility] aPTT in Blood by Coagulation assay 38.5 SECONDS 24.8 - 36.7 H [facility] \\BLDo\\INR INTERPRETATION\\BLDx\\ Therapeutic range for Coumadin and related oral anticoagulants. - International Normalized Ratio (INR): 2.0 - 3.0 for Venous Thrombosis, Pulmonary Embolus, Tissue heart valves, Acute SD Atrial Fibrillation, Valvular heart disease and recurrent Systemic Embolism. - International Normalized Ratio (INR): 2.5 - 3.5 for Mechanical Prosthetic valve. ID Date Data Source [id number] 03/17/2020 11:23:00 PM EDT [facility] Name Value Range Interpretation Code Description Data Joyce [facility](s) Supporting Document(s) CBC W/AUTOMATED DIFF [facility] COMPLETE BLOOD COUNT Leukocytes [#/volume] in Blood by Automated count 4.7 10^3/uL 4.2 - 1 1.0 [facility] Erythrocytes [#/volume] in Blood by Automated count 4.95 10^6/uL 4. 20 - 5.40 [facility] Hemoglobin [Mass/volume] in Blood 12.3 g/dL 12.0 - 16.0 [facility] Hematocrit [Volume Fraction] of Blood by Automated count 39.1 % 3 7.0 - 47.0 [facility] Erythrocyte mean corpuscular volume [Entitic volume] by Auto mated count 79.0 fL 81.0 - 101 L [facility] Erythrocyte mean corpuscular hemoglobin [Entitic mass] by Automated count 24.8 pg 27.0 - 34.0 L [facility] Erythrocyte mean corpuscular hemoglobin concentration [Mass/volume] by Automated count 31.5 g/dL 31.0 - 36.0 [facility] Erythrocyte distribution width [Ratio] by Automated count 14.4 % 11.5 - 14.5 [facility] Platelets [#/volume] in Blood by Automated count 174 10^3/uL 150 - 45 0 [facility] Platelet mean volume [Entitic volume] in Blood by Automated count 8.8 fL 7.4 - 10.4 [facility] Neutrophils/100 leukocytes in Blood by Automated count 77.1 % 37. 0 - 80.0 [facility] Lymphocytes/100 leukocytes in Blood by Manual count 13.8 % 25.0 - 40.0 L [facility] Monocytes/100 leukocytes in Blood by Automated count 6.0 % 3.0 - 8.0 [facility] Eosinophils/100 leukocytes in Blood by Automated count 2.3 % 0.0 - 7.0 [facility] Basophils/100 leukocytes in Blood by Automated count 0.4 % 0.0 - 2.5 [facility] %IG 0.4 % 0.0 - 0.0 H [facility] %NRBC 0.0 % 0.0 - 0.0 [facility] al Neutrophils [#/volume] in Blood by Automated count 3.62 10^3/uL 2.00 - 6.90 [facility] Lymphocytes [#/volume] in Blood by Automated count 0.65 10^3/uL 0.60 - 3.40 [facility] Monocytes [#/volume] in Blood by Automated count 0.28 10^3/uL 0.00 - 0.90 [facility] Eosinophils [#/volume] in Blood by Automated count 0.11 10^3/uL 0.00 - 0.70 [facility] Basophils [#/volume] in Blood by Automated count 0.02 10^3/uL 0.00 - 0.20 [facility] #IG 0.02 10^3/uL 0.00 - 0.10 [facility] #NRBC 0.00 10^3/uL 0.00 - 0.00 [facility] MANUAL DIFF NOT INDICATED [facility] RBC MORPH NOT INDICATED [facility] spital ID Date Data Source [id number] 03/04/2020 05:17:00 AM EDT [facility] gavin Montano [address] [address] FOLLOW UP NOTENAME: BROOKS HENDRIX MPHYSICIAN: MANISHA RIGGINS, MDDATE OF SERVICE: 03/03/20DATE OF : [birth year]ACCOUNT #: [id number]: BROOKS HENDRIXDate: Mar 03, 2020DOB: 1970Physician: Dr. 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 She has evidence of lupus pneumonitis with bibasalar groundglass opacities, fever, cough and dyspnea. She also has lupus nephritis and wasdiagnosed as a teenager on renal biopsy and treated with steroids alone.She had a left pulmonary embolism in December 2017. This occurred after a footsurgery in November 2017. Her boom operator Dr. Aparicio with antiphospholipidsyndrome antibody testing at [facility] and at [facility] and both are reported as positive. As a result she is now on Coumadin.More recently she has been using a foam INR testing machine but is concernedabout its reliability.She did some online research and found that home INR testing machines were notreliable in patients with antiphospholipid antibodies. She states that on 1occ she checked her INR on her machine and it was 3.4 and within 10minutes her INR done at the lab was 2.79. She also reports a lot of fluctuationin her INR. Her current warfarin dose is 5 milligrams tablets, 1.5 tabletsdaily on Tuesday and Tuesday and 2 tablets daily rest of the days. Her INR isbeing followed by primary care provider Subhash Her.[facility] also [facility] She also has problems with neuropathy which is beingfollowed by Dr. Bronson neurologist at [facility].She denies any history of skin rash or prior miscarriages. No history ofarterial thrombosis.INTERVAL HISTORY:Patient comes in stating that she is now off zonisamide. She had flare oflupus and the CellCept dose is being increased. She has had increasing muscleand joint pain and fatigue. Her potassium dose has been increased to decreaseher leg cramps. She did see an nuclear operations specialist and has been started on Symbicort andFlonase nasal spray. He is planning to have a colposcopy and endoscopy and mayneed a Lovenox bridge for that. So far she has not had any bleeding. No chestpain or dyspnea. No lower extremity pain or swelling. No upper or lowerextremity numbness or weakness. Her INR has been fairly stable between 2-3.She needs a letter to be able to do massage for her chronic shoulder pain. Shedid do some acupuncture which did not help.Past Medical History:Lyme diseaseMigraine headachesNeuropathy (had MRi with bulging disks)Hx pulmonary embolus in 2018Urinary incontinence in 2016Endometriosis in 2014Hypertension (after pulmonary embolism taken off meds.) in 2014Hematuria syndrome in 2013Restless leg in 2013Hypocalcemia in 2012Depression in 2009Vitamin D deficiency in 2009Chronic Rhinitis in 2007Gastroesophageal reflux disease in 2007Hypothyroidism in 2006Systemic Lupus Erythematosus in 2005Past Surgical History:Novosure ablation and esure - slow arousal after anesthesiaCerebral angiogram in 2019 - no aneurysmTAH-BSO in 2018LEEP in 2013Hernia repair in 2002Cholecystectomy in 2000Tonsillectomy in 1996Laparoscopy in 1994Allergies:Doxycycline Hyclate, Emycin, Imipramine HCl, Methotrexate Sodium, Topamax, andUltram.Current Medications:Warfarin Sodium 2 Tablet (of 5 mg) Oral daily (Feb 02, 2019)Azelastine HCl 2 spray(s) (of 0.15 %) Solution Nasal daily (Start Date -unknown)B-2-400 1 Capsule (of 400 mg) Oral daily (Start Date - unknown)Budesonide-Formoterol Fumarate 2 puff(s) (of 160-4.5 mcg/act) AerosolInhalation b.i.d. (Start Date - unknown)[facility] Fluticasone Propionate 2 spray(s) (of 50 mcg/act) Suspension Nasal b.i.d.(Start Date - unknown)Calcium (250 mg) Capsule Oral b.i.d. (Start Date - unknown)CellCept 2 Tablet (of 500 mg) Oral daily (Start Date - unknown)Cholecalciferol (10 mcg ) Tablet Oral daily (Start Date - unknown)Coumadin (5 mg) Tablet Oral Take as Directed (Start Date - unknown)Dexilant 1 Capsule (of 60 mg) Capsule Delayed Release Oral daily (Start Date -unknown)Fish Oil Burp-Less 1 Tablet (of 1000 mg) Capsule Oral daily (Start Date -unknown)Klor-Con M10 (10 meq) Tablet, controlled release Oral Take as Directed (StartDate - unknown)Lisinopril-hydroCHLOROthiazide (10-12.5 mg) Tablet Oral daily (Start Date -unknown)Synthroid 1 Tablet (of 100 mcg) Oral daily (Start Date - unknown)predniSONE 1 Tablet (of 5 mg) Oral daily (Start Date - unknown)Social History:Ms. HENDRIX is and she is a disabled. Ms. HENDRIX has neversmoked. She has no history of drinking. Ms. HENDRIX reports no contact withhazardous material.Ms. HENDRIX reports the following support systems: lives with spouse,significant other, family, or friends. Her diet consists of regular meals. Sheindicates her activity level as: daily activities. 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 [facility].Review of Systems:ConstitutionalNo fevers, chills, night sweats, or weight loss.Fatigue from lack of sleepfrom oain from lupus flareAllergic/ImmunologicNo reactions.HeadEyesNo significant visual difficulties. No diplopia.Trying to get vision checked-difficult to read small print.ENMTNo problems with hearing, no sore throat, no sinus drainage.ruptured ear drumcauses popping in the ear.NeckEndocrineNo diabetes, thyroid disease or hormone replacement. No hot flashes or nightsweats.Hematologic/Lymphaticissues with jaw line-cramping and salivary gland swells up.? Sjogren'ssyndromeBreastsNo abnormal masses of breast, no nipple discharge or pain.RespiratoryNo dyspnea on exertion, chest pain, cough or hemoptysis.Sensitive to smell.CardiovascularNo anginal chest pain, palpitations or orthopnea.GastrointestinalNo nausea, vomiti ng, diarrhea, GI bleeding, or constipation. No change inbowel habits, no heartburn or early satiety.Genitourinary (F)freq of urinationMusculoskeletalhands and shoulders swollen with heat and SLE . left leg pain. Body achesincluding back pain from SLE.IntegumentaryNo chronic rashes, inflammation, ulcerations or skin changes.Neurologicnumbness from neuropathy, not as severe recently.brain aneurysm (not seen oncerebral angiogram). Leg cramps .Psychiatricinsomnia- 6 hours of sleep per night for several nights. Started B2 around thesanh timeVital Signs:Performed on Mar 03, 2020 15:92Smfofs95.00 twOlmzea970.2 lbs(HIGH)BSA (derived)2.54 sq.mBMI50.51 (HIGH)[id number] OLixds19 /eskGnlxbvwxumv08 /bzvCN299/92Pulse Oximetry (O2 Sat)100 %Fall Risklow riskPerformance Status:1 - No physically strenuous activi ty, but ambulatory and able to carry outlight or sedentary work (e.g. office work, light house work). (ECOG)Physical Exam:ConstitutionalNormal - Alert, cooperative, oriented. Mood and affect appropriate. Appearsclose to chronological age. Well nourished. Well developed.HeadNormal - Normocephalic; no scars.EyesNormal - Conjunctivae and sclerae are clear and without icterus. Pupils arereactive and equal.ENMTNormal - Sinuses are nontender. No oral exudates, ulcers, masses, thrush ormucositis. Oropharynx clear. Tongue normal.NeckNormal - Supple without masses or thyromegaly. No jugular venous distension.Hematologic/LymphaticNormal - No petechiae or purpura. No tender or palpable lymph nodes in thecervical, supraclavicular, axillary or inguinal area.RespiratoryNormal - Lungs are clear to auscultation without rhonchi or wheezing.CardiovascularNormal - Regular rate and rhythm of heart without murmurs, gallops or rubs.ChestNormal - Chest is symmetric without chest wall deformities.AbdomenNormal - Non-tender, non-distended, no masses, ascites or hepatosplenomegaly.Good bowel sounds. No guarding or rebound tenderness. No pulsatile masses.Back/SpineNormal - No kyphosis, scoliosis, compression fracture s. Non-tender topalpation.ExtremitiesNormal - No visible deformities, no cyanosis, clubbing or edema.MusculoskeletalNormal - No tenderness or swelling, normal range of motion without obviousweakness.NeurologicNormal - No sensory or motor deficits, normal cerebellar function, normalgait, cranial nerves intact.PsychiatricNormal - Alert and oriented times three. Coherent speech. Verbalizesunderstanding of our discussions today.Laboratory:Most recent lab results are not available for this patient.Other test results are not available for this patient.Impression:#1 antiphospholipid antibody syndrome with history of pulmonary embolism onlong-term warfarin therapyPlan:#1 antiphospholipid antibody syndrome with history of pulmonary embolism onlong-term warfarin therapy-The patient is a 48-year-old female who wasapparently diagnosed with antiphospholipid antibody syndrome after a pulmonaryembolism. As per notes [facility].1.Non-reliability of INR self testing in antiphospholipid antibody syndromepatients-Pt has been having her INR tested the lab at [facility].2. Fluctuation of INR-Patient is using vitamin K 100 micrograms orally daily .Recently her INR has been fairly stable on a dose of warfarin 10 milligrams aduring the week and 11 milligrams on weekends.She will continue her currentdose.Since her INRs have been fairly stable follow-up will be in 6 months.Patient will call as needed for Lovenox bridging for her procedures.#2 left upper extremity numbness and weakness-This was felt to bemusculoskeletal and has not recurred.#3 left lower extremity pain -left lower extremity venous Doppler was negativefor deep venous thrombosis.#4 abdominal wall cellulitis- resolvedElectronically signed by:Manisha TownsendvaCC:Dr. Benjamin Mclean. Johana Baron pa Name Value Range Interpretation Code Description Data Joyce rce(s) Supporting Document(s) ID Date Data Source [id number] 03/03/2020 01:15:00 PM EDT [facility] ([facility] Name Value Range Interpretation Code Description Data Joyce rce(s) Supporting Document(s) White Blood Count 6.4 10 4.0-10.0 Normal (applies to non-numeri c results) [facility] ([facility] Red Blood Count 5.22 10 4.00-5.40 Normal (applies to non-numeric results) [facility] ([facility] Hemoglobin 13.2 g/dL 12.0-15.5 Normal (applies to non-numeric resul ts) [facility] ([facility] Mean Corpuscular Volume 80.8 fl 80.0-96.0 Normal ( applies to non-numeric results) [facility] ([facility] ) Hematocrit 42.2 % 36.0-47.0 Normal (applies to non-numeric resul ts) [facility] ([facility] Mean Corpuscular HGB Conc 31.3 g/dL 32.0-36.5 Below low normal [facility] ([facility] Mean Corpuscular Hemoglobin 25.3 pg 27.0-33.0 Below low normal [facility] ([facility] Red Cell Distribution Width 14.3 % 11.5-14.5 Norm al (applies to non-numeric results) [facility] ([facility] Neutrophils % 78.6 % 36.0-66.0 Above high normal [facility] ([facility] [place] % 7.7 % 0.0-5.0 Above high normal [facility] ([facility] Platelet Count, Automated 189 10 150-450 Normal (applies to non-numeric results) [facility] ([facility] ) Lymph % 10.6 % 24.0-44.0 Below low normal [facility] ( [facility] Eos % 1.7 % 0.0-3.0 Normal (applies to non-numeric resul ts) [facility] ([facility] Immature Granulocyte % 0.9 % 0-3.0 Normal (applies to non-n umeric results) [facility] ([facility] Baso % 0.5 % 0.0-1.0 Normal (applies to non-numeric resul ts) [facility] ([facility] Neutrophils # 5.0 10 1.5-8.5 Normal (applies to non-numeric re sults) [facility] ([facility] Nucleated Red Blood Cell % 0.0 % 0-0 Normal (applies to n on-numeric results) [facility] ([facility] Lymph # 0.7 10 1.5-5.0 Below low normal [facility] ( [facility] [place] # 0.5 10 0.0-0.8 Normal (applies to non-numeric resul ts) [facility] ([facility] Eos # 0.1 10 0.0-0.5 Normal (applies to non-numeric resul ts) [facility] ([facility] Baso # 0.0 10 0.0-0.2 Normal (applies to non-numeric resul ts) [facility] ([facility] ID Date Data Source [id number] 03/03/2020 01:15:00 PM EDT [facility] ([facility] Name Value Range Interpretation Code Description Data Joyce rce(s) Supporting Document(s) Prothrombin Time 31.4 s 11.8-14.0 Above high normal M [facility] ([facility] Inr 2.95 Normal (applies to non-numeric resul ts) [facility] ([facility] THERAPUTIC HUMAN INR VALUES INDICATIONS NORMAL RANGES PROPHYLAXIS/TREATMENT OF: VENOUS THROMBOSIS 2.0-3.0 PULMONARY EMBOLISM 2.0-3.0 PREVENTION OF SYSTEMIC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 2012Depression in 2009Vitamin D deficiency in 2009Chronic Rhinitis in 2007Gastroesophageal reflux disease in 2007Hypothyroidism in 2006Systemic Lupus Erythematosus in 2005Past Surgical History:Novosure ablation and esure - slow arousal after anesthesiaTAH-BSOLEEP in 2013Hernia repair in 2002Cholecystectomy in 2000Tonsillectomy in 1996Laparoscopy in 1994Allergies:Doxycycline Hyclate, Emycin, Imipramine HCl, Methotrexate Sodium, Topamax, andUltram.Current Medications:Amoxicillin 1 Tablet (of 500 mg) Oral t.i.d. (Jul 16, 2019)Cephalexin 1 Tablet (of 500 mg) Oral four times a day (December 03, 2019)Enoxaparin Sodium 150 mg (of 150 mg/mL) Subcutaneous daily (Feb 16, 2019)Nystatin 5 G (of 914441 Units/g) Cream Topical b.i.d. (Jul 16, 2019)Warfarin Sodium 2 Tablet (of 5 mg) Oral daily (Feb 02, 2019)Align 1 Capsule (of 4 mg) Oral daily (Start Date - unknown)Amoxicillin 1 Tablet (of 875 mg) Oral b.i.d. (Start Date - unknown)Azelastine HCl 2 spray(s) (of 0.15 %) Solution Nasal daily (Start Date -unknown)B-2-400 1 Capsule (of 400 mg) Oral daily (Start Date - unknown)Calcium (250 mg) Capsule Oral b.i.d. (Start Date - unknown)Cholecalciferol (10 mcg ) Tablet Oral daily (Start Date - unkn own)Coumadin (5 mg) Tablet Oral Take as Directed (Start Date - unknown)Fish Oil Burp-Less 1 Tablet (of 1000 mg) Capsule Oral daily (Start Date -unknown)Klor-Con M10 (10 meq) Tablet, controlled release Oral Take as Directed (StartDate - unknown)Lisinopril-hydroCHLOROthiazide (10-12.5 mg) Tablet Oral daily (Start Date -unknown)Mupirocin (2 %) Ointment Topical Take as Directed (Start Date - unknown)Nystatin (245877 Units/g) Powder Topical Take as Directed (Start Date - unknown)Pantoprazole Sodium 1 Tablet (of 40 mg) Tablet, enteric coated Oral daily(Start Date - unknown)Pepcid 1 (40 mg) Tablet Oral daily (Start Date - unknown)Plaquenil 1 Tablet (of 200 mg) Oral b.i.d. (Start Date - unknown)Synthroid 1 Tablet (of 100 mcg) Oral daily (Start Date - unknown)predniSONE 1 Tablet (of 2.5 mg) Oral daily (Start Date - unknown)Social History:Ms. HENDRIX is and she is a disabled. Ms. HENDRIX has neversmoked. She has no history of drinking. Ms. HENDRIX reports no contact withhazardous material.Ms. HENDRIX reports the following support systems: lives with spouse,significant other, family, or friends. Her diet consists of regular meals. Sheindicates her activity level as: daily activities. 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 [facility].Review of Systems:ConstitutionalNo fevers, chills, night sweats, excessive fatigue or weight loss.Allergic/ImmunologicNo reactions.HeadEyesNo significant visual difficulties. No diplopia.Trying to get vision checked- difficult to read small print.ENMTNo problems with hearing, no sore throat, no sinus drainage.ruptured ear drumcauses popping in the ear.NeckEndocrineNo diabetes, thyroid disease or hormone replacement. No hot flashes or nights weats.Hematologic/Lymphaticnose bleeds stopped . issues with jaw line-cramping and salivary gland swellsup.BreastsNo abnormal masses of breast, no nipple discharge or pain.Respiratoryrecent pneumonia treated.CardiovascularNo anginal chest pain, palpitations or orthopnea.GastrointestinalNo nausea, vomiting, diarrhea, GI bleeding, or constipation. No change inbowel habits, no heartburn or early satiety.Genitourinary (F)freq of urinationMusculoskeletalhands and shoulders swollen with heat and SLE . left leg painIntegumentaryarea of cellulitis on abdNeurologicnumbness from neuropathy, brain aneurysmPsy chiatricinsomnia- 6 hours of sleep per night for several nights. Started B2 around thesame timeVital Signs:Vitals are not available for this patient.Performance Status:1 - No physically strenuous activity, but ambulatory and able to carry outlight or sedentary work (e.g. office work, light house work). (ECOG)Physical Exam:Physical Exam-Comments is not available for this patient.Laboratory:Test performed on Jul 16, 2019 13:16INR2.11 (HIGH)Other test results are not available for this patient.Impression:#1 antiphospholipid antibody syndrome with history of pulmonary embolism onlong-term warfarin thera pyPlan:#1 antiphospholipid antibody syndrome with history of pulmonary embolism onlong-term warfarin therapy-The patient is a 48-year-old female who wasapparently diagnosed with antiphospholipid antibody syndrome after a pulmonaryembolism. As per notes she [facility]1.Non-reliability of INR self testing in antiphospholipid antibody syndromepatients-Pt has been having her INR tested the lab at [facility].2. Fluctuation of INR-Patient is using vitamin K 100 micrograms orally daily .Recently her INR has been fairly stable on a dose of warfarin 10 milligrams aduring the week and 11 milligrams on weekends. He will continue her currentdose. I feel that since her recent INRs have been fairly stable, she could haveher INR checked less frequently about every 2 weeks and this could limit herhospital visits during the COVID 19 pandemic.#2 left upper extremity numbness and weakness-this is of unclear etiology butTIA is in the differential. I discussed with the patient that although the roleof aspirin as primary thromboprophylaxis in patients with antiphospholipidsyndrome is controversial, its role in the treatment of strokes/TIA is not.Therefore if it is strongly suspected that she had TIA I would be in favor ofadding aspirin to her regimen. Patient stated that at the present time it isfelt that her symptoms were more likely related to complex migraine ormusculoskeletal problems and she herself favors that the symptoms were relatedto musculoskeletal reasons.#3 left lower extremity pain -left lower extremity venous Doppler was negativefor deep venous thrombosis. Pt is following up with her primary care providerwho suspects stress fracture. Patient is awaiting results of her x-ray. Next#4 abdominal wall cellulitis-patient was prescribed cephalexin 500 milligramsorally 5 times daily for 7 days. If there is no improvement patient shouldcontact her primary care provider for culture and antibiotics based onsensitivityElectronically signed by:Manisha TownsendvaCC:Dr. Benjamin Wilder Latif Name Value Range Interpretation Code Description Data [facility] rce(s) Supporting Document(s) ID Date Data Source [id number] 11/30/2019 12:00:00 AM EDT [facility] Maximo Baron Rpa Patient Name: AMELIA HENDRIX Date of : 1970[place] [address] Date of Exam: 11/30/2019PH#: Fax: [phone] EXAM: ANKLE COMPLETE LEFT (MIN 3 VIEWS) X-RAYCLINICAL INFORMATION: Pain.Four views.There are no prior left ankle xrays for comparison.There has been previous ORIF of the os calcis. There is a single cancellusscrew. There is degenerative changes seen involving the subtalar joints.The mortise is asymmetrically widened medially. The bones appear somewhatdemineralized. There is no evidence of an acute fracture. There istibiotalar osteophytosis and evidence of talar dome flattening.IMPRESSION:Multiple chronic changes as described above.MERT Hassan/Hollis you for referring BROOKS HENDRIX to our office. Electronically Signed - KORY PLATT DO 12/03/19 16:14 Name Value Range Interpretation Code Description Data Joyce rce(s) Supporting Document(s) ID Date Data Source [id number] 12/03/2019 11:08:00 AM EDT [facility] ([facility] Name Value Range Interpretation Code Description Data Joyce rce(s) Supporting Document(s) Prothrombin Time 29.6 s 11.8-14.0 Above high normal M [facility] ([facility] Inr 2.82 Normal (applies to non-numeric resul ts) [facility] ([facility] THERAPUTIC HUMAN INR VALUES INDICATIONS NORMAL RANGES PROPHYLAXIS/TREATMENT OF: VENOUS THROMBOSIS 2.0-3.0 PULMONARY EMBOLISM 2.0-3.0 PREVENTION OF SYSTEMIC EMBOLISM FROM: TISSUE HEART VALVES 2.0-3.0 ACUTE MYOCARDIAL INFARCTION 2.0-3.0 VALVULAR HEART DISEASE 2.0-3.0 ATRIAL FIBRILLATION 2.0-3.0 MECHANICAL VALVES(HIGH RISK) 2.5-3.5 RECURRENT MYOCARDIAL INFARCTION 2.5-3.5 ID Date Data Source [id number] 11/30/2019 12:00:00 AM EDT [facility] Manisha Riggins Patient Name: GILMA HENDRIX Place Date of : 1970[place] [address] Date of Exam: 11/30/2019#: Fax: [phone] EXAM: US LEFT EXTREMITY VEINS, UNILATCLINICAL INFORMATION: Pain and swelling left thigh.VENOUS ULTRASOUND OF THE LEFT LOWER EXTREMITY:Multiple ultrasonographic images of the deep venous structures of the leftthigh were obtained from the level of the common femoral vein to thepopliteal vein in the longitudinal and transverse scan planes along withDoppler interrogation and color flow Doppler imaging.There is no abnormal echogenic material seen within any of the visualizeddeep venous structures that would suggest acute thrombosis. Coaptation isunremarkable throughout. Doppler interrogation shows an expected responseto respiratory variability and augmentation. The color flow Doppler imagesshow what appears to be a normal vascular pattern throughout.IMPRESSION:There is no ultrasonographic evidence of deep venous thrombosis involvingany of the visualized deep venous structures of the left thigh as describedabove.Accredited by the [employer] in Vascular PeripheralUltrasound.MERT Hassan/Hollis you for referring BROOKS HENDRIX to our office. Electronically Signed - KORY PLATT DO 11/30/19 12:04 Name Value Range Interpretation Code Description Data Joyce rce(s) Supporting Document(s) ID Date Data Source [id number] 11/26/2019 01:29:00 PM EDT [facility] ([facility] Name Value Range Interpretation Code Description Data Joyce rce(s) Supporting Document(s) Prothrombin Time 29.3 s 11.8-14.0 Above high normal M [facility] ([facility] Inr 2.78 Normal (applies to non-numeric resul ts) [facility] ([facility] THERAPUTIC HUMAN INR VALUES INDICATIONS NORMAL RANGES PROPHYLAXIS/TREATMENT OF: VENOUS THROMBOSIS 2.0-3.0 PULMONARY EMBOLISM 2.0-3.0 PREVENTION OF SYSTEMIC EMBOLISM FROM: TISSUE HEART VALVES 2.0-3.0 ACUTE MYOCARDIAL INFARCTION 2.0-3.0 VALVULAR HEART DISEASE 2.0-3.0 ATRIAL FIBRILLATION 2.0-3.0 MECHANICAL VALVES(HIGH RISK) 2.5-3.5 RECURRENT MYOCARDIAL INFARCTION 2.5-3.5 ID Date Data Source [id number] 11/19/2019 01:10:00 PM EDT [facility] ([facility] Name Value Range Interpretation Code Description Data Joyce rce(s) Supporting Document(s) Laboratory test finding (navigational concept) Laboratory test r esult Above high normal [facility] ([facility] ) Performed at: [address] [id number] Relationship Manager: Avinash Piedra MD, Phone: [phone] Laboratory test finding (navigational concept) Laboratory test r esult Abnormal (applies to non-numeric results) [facility] ([facility] ID Date Data Source [id number] 11/19/2019 01:10:00 PM EDT [facility] ([facility] Name Value Range Interpretation Code Description Data Joyce rce(s) Supporting Document(s) Complement C4 [Mass/volume] in Serum or Plasma 18 mg/dL 1 0-40 Normal (applies to non-numeric results) [facility] ([facility] Complement C3 [Mass/volume] in Serum or Plasma 95 mg/dL 9 0-180 Normal (applies to non-numeric results) [facility] ([facility] C reactive protein [Mass/volume] in Serum or Plasma by High sensitivity method Laboratory test result 0.00-0.30 Normal (applies to non-numeric results) [facility] ([facility] ID Date Data Source [id number] 11/19/2019 01:10:00 PM EDT [facility] ([facility] Name Value Range Interpretation Code Description Data Joyce rce(s) Supporting Document(s) Creatinine For GFR 1.00 mg/dL 0.55-1.30 Normal (applies to non -numeric results) [facility] ([facility] Glucose, Fasting 81 mg/dL 70-100 Normal (applies to non-numeric results) [facility] Blood Urea Nitrogen 12 mg/dL 7-18 Normal (applies to non-nume elías results) [facility] ([facility] Sodium Level 140 meq/L 136-145 Normal (applies to non-numeric res ults) [facility] Potassium Serum 3.1 meq/L 3.5-5.1 Below low normal [facility] ([facility] Glomerular Filtration Rate Laboratory test result Normal (applies to non- numeric results) [facility] ([facility] ) <content>Units are mL/min/1.73 m2</content>
<content></content>
<content>Chronic Kidney Disease Staging per NKF:</content>
<content></content>
<content>Stage I & II GFR >=60 Normal to Mildly Decreased</content>
<content>Stage III GFR 30- 59 Moderately Decreased</content>
<content>Stage IV GFR 15-29 Severely Decreased</content>
<content>Stage V GFR <15 Very Little GFR Left</content>
<content>ESRD GFR <15 on LENDING ACTIVITIES SUPERVISOR</content>
<content></content> Calcium Level 8.7 mg/dL 8.5-10.1 Normal (applies to non-numeric re sults) [facility] Anion Gap 6 meq/L 8-16 Below low normal [facility] ( [facility] Chloride Level 106 meq/L 98-107 Normal (applies to non-numeric r esults) [facility] ([facility] Carbon Dioxide Level 28 meq/L 21-32 Normal (applies to non-num trish results) [facility] ([facility] Alt/SGPT 21 U/L 12-78 Normal (applies to non-numeric resul ts) [facility] ([facility] Alkaline Phosphatase 72 U/L 45-117 Normal (applies to non-num trish results) [facility] ([facility] Ast/Sgot 12 U/L 7-37 Normal (applies to non-numeric resul ts) [facility] ([facility] Albumin/Globulin Ratio 0.88 1.00-1.93 Below low normal [facility] ([facility] Bilirubin,Total 0.4 mg/dL 0.2-1.0 Normal (applies to non-numeric results) [facility] ([facility] Albumin 3.6 GM/DL 3.2-5.2 Normal (applies to non-numeric resul ts) [facility] ([facility] Total Protein 7.7 GM/DL 6.4-8.2 Normal (applies to non-numeric re sults) [facility] ([facility] ID Date Data Source [id number] 11/19/2019 01:10:00 PM EDT [facility] ([facility] Name Value Range Interpretation Code Description Data Joyce rce(s) Supporting Document(s) Erythrocyte sedimentation rate by Westergren method 9 mm/hr 0-20 Normal (applies to non-numeric results) [facility] ([facility] ID Date Data Source [id number] 11/19/2019 01:10:00 PM EDT [facility] ([facility] Name Value Range Interpretation Code Description Data Joyce rce(s) Supporting Document(s) Neutrophils % 62.5 % 36.0-66.0 Normal (applies to non-numeric re sults) [facility] ([facility] [facility] Lymph % 25.4 % 24.0-44.0 Normal (applies to non-numeric resul ts) [facility] ([facility] Baso % 0.5 % 0.0-1.0 Normal (applies to non-numeric resul ts) [facility] ([facility] Eos % 3.2 % 0.0-3.0 Above high normal [facility] ([facility] [place] % 7.7 % 0.0-5.0 Above high normal [facility] ([facility] [place] # 0.4 10 0.0-0.8 Normal (applies to non-numeric resul ts) [facility] ([facility] Lymph # 1.4 10 1.5-5.0 Below low normal [facility] ( [facility] Immature Granulocyte % 0.7 % 0-3.0 Normal (applies to non-n umeric results) [facility] ([facility] Neutrophils # 3.5 10 1.5-8.5 Normal (applies to non-numeric re sults) [facility] ([facility] Eos # 0.2 10 0.0-0.5 Normal (applies to non-numeric resul ts) [facility] ([facility] Baso # 0.0 10 0.0-0.2 Normal (applies to non-numeric resul ts) [facility] ([facility] ID Date Data Source [id number] 11/19/2019 01:10:00 PM EDT [facility] ([facility] Name Value Range Interpretation Code Description Data Joyce rce(s) Supporting Document(s) Red Blood Count 5.34 10 4.00-5.40 Normal (applies to non-numeric results) [facility] ([facility] White Blood Count 5.6 10 4.0-10.0 Normal (applies to non-numeri c results) [facility] ([facility] Mean Corpuscular Volume 80.9 fl 80.0-96.0 Normal ( applies to non-numeric results) [facility] ([facility] Hematocrit 43.2 % 36.0-47.0 Normal (applies to non-numeric resul ts) [facility] ([facility] Hemoglobin 13.7 g/dL 12.0-15.5 Normal (applies to non-numeric resul ts) [facility] ([facility] Mean Corpuscular Hemoglobin 25.7 pg 27.0-33.0 Below low normal [facility] ([facility] Red Cell Distribution Width 14.0 % 11.5-14.5 Norm al (applies to non-numeric results) [facility] ([facility] ) Mean Corpuscular HGB Conc 31.7 g/dL 32.0-36.5 Below low normal [facility] ([facility] Platelet Count, Automated 193 10 150-450 Normal (applies to non-numeric results) [facility] ( [facility] Nucleated Red Blood Cell % 0.0 % 0-0 Normal (applies to n on-numeric results) [facility] ( [facility] ID Date Data Source [id number] 11/19/2019 01:10:00 PM EDT [facility] ([facility] Name Value Range Interpretation Code Description Data Joyce rce(s) Supporting Document(s) Total Protein,Random Urine 5.6 mg/dL 0.0-12.0 Piedad l (applies to non-numeric results) [facility] ( [facility] ID Date Data Source [id number] 11/19/2019 01:10:00 PM EDT [facility] ([facility] Name Value Range Interpretation Code Description Data Joyce rce(s) Supporting Document(s) Appearance, Urine Laboratory test result Normal (applies to non-numeric results) [facility] ([facility] ) Color, Urine Laboratory test result Normal (applies to non -numeric results) [facility] ([facility] Specific [place] Urine Auto 1.005 1.002-1.035 Norm al (applies to non-numeric results) [facility] ([facility] ) Protein, Urine Auto Laboratory test result Piedad l (applies to non-numeric results) [facility] ([facility] PH,Urine 6.0 units 5.0-9.0 Normal (applies to non-numeric resul ts) [facility] ([facility] Ketone, Urine Auto Laboratory test result Normal (applies to non-numeric results) [facility] ([facility] ) Urobilinogen, Urine Auto 0.2 mg/dL 0.0-2.0 Normal (applies to non-numeric results) [facility] ([facility] ) Glucose, Urine (Ua) Auto Laboratory test result Normal (applies to non-numeric results) [facility] ([facility] Leukocyte Esterase, Urine Auto Laboratory test result Abov e high normal [facility] ([facility] Nitrite, Urine Auto Laboratory test result Piedad l (applies to non-numeric results) [facility] ([facility] ) Bilirubin, Urine Auto Laboratory test result Nor mal (applies to non-numeric results) [facility] ([facility] ) RBC, Urine Auto 1 /HPF 0-3 Normal (applies to non-numeric results) [facility] ([facility] WBC, Urine Auto 1 /HPF 0-3 Normal (applies to non-numeric results) [facility] ([facility] Blood, Urine Blood Laboratory test result Normal (applies to non-numeric results) [facility] ([facility] ) Bacteria, Urine Auto Laboratory test result Norm al (applies to non-numeric results) [facility] ([facility] ) Squamous Epithelial Cell Ur AU 1 /HPF 0-6 N ormal (applies to non-numeric results) [facility] ([facility] ) Hyaline Cast, Urine Auto 0 /LPF 0-1 Normal (applies to non -numeric results) [facility] ([facility] ID Date Data Source [id number] 11/19/2019 01:10:00 PM EDT [facility] ([facility] Name Value Range Interpretation Code Description Data Joyce rce(s) Supporting Document(s) Prothrombin Time 29.9 s 11.8-14.0 Above high normal M [facility] ([facility] Inr 2.86 Normal (applies to non-numeric resul ts) [facility] ([facility] THERAPUTIC HUMAN INR VALUES INDICATIONS NORMAL RANGES PROPHYLAXIS/TREATMENT OF: VENOUS THROMBOSIS 2.0-3.0 PULMONARY EMBOLISM 2.0-3.0 PREVENTION OF SYSTEMIC EMBOLISM FROM: TISSUE HEART VALVES 2.0-3.0 ACUTE MYOCARDIAL INFARCTION 2.0-3.0 VALVULAR HEART DISEASE 2.0-3.0 ATRIAL FIBRILLATION 2.0-3.0 MECHANICAL VALVES(HIGH RISK) 2.5-3.5 RECURRENT MYOCARDIAL INFARCTION 2.5-3.5 ID Date Data Source [id number] 10/13/2019 10:37:00 PM EDT [facility] ([facility] Name Value Range Interpretation Code Description Data Joyce rce(s) Supporting Document(s) PH,Urine RFX 7.0 units 5.0-9.0 Normal (applies to non-numeric res ults) [facility] Specific [place] Ur Auto RFX 1.005 1.002-1.035 Nor mal (applies to non-numeric results) [facility] ([facility] ) Appearance, Urine RFX Laboratory test result Nor mal (applies to non-numeric results) [facility] ([facility] ) Color, Urine RFX Laboratory test result Normal ( applies to non-numeric results) [facility] ([facility] ) Glucose, Urine (Ua) Auto RFX Laboratory test result Normal (applies to non- numeric results) [facility] ([facility] ) Urobilinogen, Urine Auto RFX 0.2 mg/dL 0.0-2.0 Nor mal (applies to non-numeric results) [facility] ([facility] ) Protein, Urine Auto RFX Laboratory test result N ormal (applies to non-numeric results) [facility] ([facility] ) Ketone, Urine Auto RFX Laboratory test result No rmal (applies to non-numeric results) [facility] ([facility] ) Bilirubin, Urine Auto RFX Laboratory test result Normal (applies to non- numeric results) [facility] ([facility] ) Leukocyte Esterase Ur Auto RFX Laboratory test result Normal (applies to non- numeric results) [facility] ([facility] ) Nitrite, Urine Auto RFX Laboratory test result N ormal (applies to non-numeric results) [facility] ([facility] ) Blood, Urine Blood RFX Laboratory test result No rmal (applies to non-numeric results) [facility] ([facility] ) WBC, Urine Auto RFX 1 /HPF 0-3 Normal (applies to non-nume elías results) [facility] ([facility] RBC, Urine Auto RFX 0 /HPF 0-3 Normal (applies to non-nume elías results) [facility] ([facility] Hyaline Cast, Urine Auto RFX 0 /LPF 0-1 Normal (appl ies to non-numeric results) [facility] ([facility] Squam Epithelial Cell Ur Aurfx 0 /HPF 0-6 N ormal (applies to non-numeric results) [facility] ([facility] ) Bacteria, Urine Auto RFX Laboratory test result Normal (applies to non-numeric results) [facility] ([facility] ) ID Date Data Source [id number] 10/13/2019 09:08:00 PM EDT [facility] ([facility] Name Value Range Interpretation Code Description Data Joyce rce(s) Supporting Document(s) Laboratory test finding (navigational concept) 38.0 % 3 8.0-51.0 Normal (applies to non-numeric results) [facility] ([facility] Laboratory test finding (navigational concept) 3.7 meq/L 3 .5-5.1 Normal (applies to non-numeric results) [facility] ([facility] Laboratory test finding (navigational concept) 139 meq/L 1 36-145 Normal (applies to non-numeric results) [facility] ([facility] Laboratory test finding (navigational concept) 106 mg/dL 7 0-105 Above high normal [facility] ([facility] ) Laboratory test finding (navigational concept) 27.0 MM/L 2 3.0-27.0 Normal (applies to non-numeric results) [facility] Laboratory test finding (navigational concept) 4.7 mg/dL 4 .5-5.3 Normal (applies to non-numeric results) [facility] ([facility] Laboratory test finding (navigational concept) 101 meq/L 9 8-109 Normal (applies to non-numeric results) [facility] ([facility] Laboratory test finding (navigational concept) 12 mg/dL 8 -26 Normal (applies to non-numeric results) [facility] ([facility]) Laboratory test finding (navigational concept) 0.8 mg/dL 0 .6-1.3 Normal (applies to non-numeric results) [facility] ([facility] ID Date Data Source [id number] 10/13/2019 08:48:00 PM EDT [facility] Name Value Range Interpretation Code Description Data Joyce rce(s) Supporting Document(s) Lipoprotein lipase [Enzymatic activity/volume] in Serum or Plasm a 84 U/L 73-393 Normal (applies to non-numeric results) [facility] ([facility] ID Date Data Source [id number] 10/13/2019 08:48:00 PM EDT [facility] Name Value Range Interpretation Code Description Data Joyce rce(s) Supporting Document(s) Ast/Sgot 16 U/L 7-37 Normal (applies to non-numeric resul ts) [facility] ([facility] Alt/SGPT 20 U/L 12-78 Normal (applies to non-numeric resul ts) [facility] ([facility] Bilirubin,Total 0.3 mg/dL 0.2-1.0 Normal (applies to non-numeric results) [facility] ([facility] Alkaline Phosphatase 67 U/L 45-117 Normal (applies to non-num trish results) [facility] ([facility] Bilirubin,Direct Laboratory test result 0.0-0.2 Normal ( applies to non-numeric results) [facility] ([facility] ) Albumin 3.5 GM/DL 3.2-5.2 Normal (applies to non-numeric resul ts) [facility] ([facility] Albumin/Globulin Ratio 0.90 1.00-1.93 Below low normal [facility] ([facility] Total Protein 7.4 GM/DL 6.4-8.2 Normal (applies to non-numeric re sults) [facility] ([facility] ID Date Data Source [id number] 10/13/2019 08:48:00 PM EDT [facility] ([facility] Name Value Range Interpretation Code Description Data Joyce rce(s) Supporting Document(s) MB/CK Relative Index 1.33 Normal (applies to non-num trish results) [facility] ([facility] <content>DIAGNOSIS CRITERIA</content>
<content>MMB ng/ml Relative Index (RI)</content>
<content>NON-AMI < or = 5 N/A</content>
<content>HARDY ZONE > 5 < or = 4</content>
<content>AMI > 5 > 4</content>
<content></content> CPK Creatine Phosphokinase 75 U/L 26-192 Piedad l (applies to non-numeric results) [facility] ([facility] ) CK-MB Value Mass Laboratory test result Normal ( applies to non-numeric results) [facility] ([facility] ) Troponin I Laboratory test result Normal (applies to non-n umeric results) [facility] ([facility] <content>Troponin I Reference Interval f or Siemens [place] LOCI:</content>
<content></content>
<content>99th Percentile= 0.00-0.045 ng/ml</content>
<content></content>
<content>Risk Stratification:</content>
<content><= 0.10 ng/ml Decreased Risk for Adverse Clinical</content>
<content>Events.</content>
<content>0.10-1.50 ng/ml Increased Risk for Adverse Clinical</content>
<content>Events. Evaluation of additional</content>
<content>criterion and/or repeat testing in 2-6</content>
<content>hours is suggested to rule out myocardial</content>
<content>damage.</content>
<content>>= 1.50 ng/ml Indicative of Myocardial Injury.</content>
<content></content> ID Date Data Source [id number] 10/13/2019 08:48:00 PM EDT [facility] ([facility] Name Value Range Interpretation Code Description Data Joyce rce(s) Supporting Document(s) Red Blood Count 5.05 10 4.00-5.40 Normal (applies to non-numeric results) [facility] ([facility] White Blood Count 4.1 10 4.0-10.0 Normal (applies to non-numeri c results) [facility] ([facility] Mean Corpuscular Volume 79.4 fl 80.0-96.0 Below low normal [facility] ([facility] Hematocrit 40.1 % 36.0-47.0 Normal (applies to non-numeric resul ts) [facility] ([facility] Mean Corpuscular Hemoglobin 25.7 pg 27.0-33.0 Below low normal [facility] ([facility] Hemoglobin 13.0 g/dL 12.0-15.5 Normal (applies to non-numeric resul ts) [facility] ([facility] Platelet Count, Automated 160 10 150-450 Normal (applies to non-numeric results) [facility] ([facility] ) Red Cell Distribution Width 13.9 % 11.5-14.5 Norm al (applies to non-numeric results) [facility] ([facility] ) Mean Corpuscular HGB Conc 32.4 g/dL 32.0-36.5 Normal (applies to non-numeric results) [facility] ([facility] ) Eos % 2.9 % 0.0-3.0 Normal (applies to non-numeric resul ts) [facility] ([facility] Lymph % 14.7 % 24.0-44.0 Below low normal [facility] ( [facility] Neutrophils % 75.8 % 36.0-66.0 Above high normal [facility] ([facility] [place] % 5.9 % 0.0-5.0 Above high normal [facility] ([facility] Baso % 0.2 % 0.0-1.0 Normal (applies to non-numeric resul ts) [facility] ([facility] Nucleated Red Blood Cell % 0.0 % 0-0 Normal (applies to n on-numeric results) [facility] ([facility] Immature Granulocyte % 0.5 % 0-3.0 Normal (applies to non-n umeric results) [facility] ([facility] Lymph # 0.6 10 1.5-5.0 Below low normal [facility] ( [facility] [place] # 0.2 10 0.0-0.8 Normal (applies to non-numeric resul ts) [facility] ([facility] Eos # 0.1 10 0.0-0.5 Normal (applies to non-numeric resul ts) [facility] ([facility] Neutrophils # 3.1 10 1.5-8.5 Normal (applies to non-numeric re sults) [facility] ([facility] Baso # 0.0 10 0.0-0.2 Normal (applies to non-numeric resul ts) [facility] ([facility] ID Date Data Source [id number] 10/13/2019 12:33:00 PM EDT [facility] ([facility] Name Value Range Interpretation Code Description Data Joyce rce(s) Supporting Document(s) Prothrombin Time 32.8 s 11.8-14.0 Above high normal [facility] ([facility] Inr 3.21 Normal (applies to non-numeric resul ts) [facility] ([facility] THERAPUTIC HUMAN INR VALUES INDICATIONS NORMAL RANGES PROPHYLAXIS/TREATMENT OF: VENOUS THROMBOSIS 2.0-3.0 PULMONARY EMBOLISM 2.0-3.0 PREVENTION OF SYSTEMIC EMBOLISM FROM: TISSUE HEART VALVES 2.0-3.0 ACUTE MYOCARDIAL INFARCTION 2.0-3.0 VALVULAR HEART DISEASE 2.0-3.0 ATRIAL FIBRILLATION 2.0-3.0 MECHANICAL VALVES(HIGH RISK) 2.5-3.5 RECURRENT MYOCARDIAL INFARCTION 2.5-3.5 ID Date Data Source [id number] 10/13/2019 12:33:00 PM EDT [facility] Name Value Range Interpretation Code Description Data Joyce rce(s) Supporting Document(s) Lymph % 21.5 % 24.0-44.0 Below low normal [facility] ( [facility] Neutrophils % 67.3 % 36.0-66.0 Above high normal [facility] ([facility] [place] % 7.2 % 0.0-5.0 Above high normal [facility] ([facility] Immature Granulocyte % 0.5 % 0-3.0 Normal (applies to non-n umeric results) [facility] ([facility] Baso % 0.3 % 0.0-1.0 Normal (applies to non-numeric resul ts) [facility] ([facility] Eos % 3.2 % 0.0-3.0 Above high normal [facility] ([facility] [place] # 0.3 10 0.0-0.8 Normal (applies to non-numeric resul ts) [facility] ([facility] Lymph # 0.8 10 1.5-5.0 Below low normal [facility] ( [facility] Eos # 0.1 10 0.0-0.5 Normal (applies to non-numeric resul ts) [facility] ([facility] Neutrophils # 2.5 10 1.5-8.5 Normal (applies to non-numeric re sults) [facility] ([facility] Baso # 0.0 10 0.0-0.2 Normal (applies to non-numeric resul ts) [facility] ([facility] ID Date Data Source [id number] 10/13/2019 12:33:00 PM EDT [facility] ([facility] Name Value Range Interpretation Code Description Data Joyce rce(s) Supporting Document(s) Red Blood Count 5.07 10 4.00-5.40 Normal (applies to non-numeric results) [facility] ([facility] White Blood Count 3.8 10 4.0-10.0 Below low normal [facility] ([facility] Hematocrit 40.9 % 36.0-47.0 Normal (applies to non-numeric resul ts) [facility] ([facility] Mean Corpuscular Volume 80.7 fl 80.0-96.0 Normal ( applies to non-numeric results) [facility] ([facility] ) Hemoglobin 12.8 g/dL 12.0-15.5 Normal (applies to non-numeric resul ts) [facility] ([facility] Mean Corpuscular Hemoglobin 25.2 pg 27.0-33.0 Below low normal [facility] ([facility] Red Cell Distribution Width 14.1 % 11.5-14.5 Norm al (applies to non-numeric results) [facility] ([facility] ) Platelet Count, Automated 168 10 150-450 Normal (applies to non-numeric results) [facility] ([facility] ) Mean Corpuscular HGB Conc 31.3 g/dL 32.0-36.5 Below low normal [facility] ([facility] Nucleated Red Blood Cell % 0.0 % 0-0 Normal (applies to n on-numeric results) [facility] ([facility] ID Date Data Source [id number] 10/01/2019 11:43:00 AM EST [facility] ([facility] Name Value Range Interpretation Code Description Data Joyce rce(s) Supporting Document(s) Inr 2.62 Normal (applies to non-numeric resul ts) [facility] ([facility] THERAPUTIC HUMAN INR VALUES INDICATIONS NORMAL RANGES PROPHYLAXIS/TREATMENT OF: VENOUS THROMBOSIS 2.0-3.0 PULMONARY EMBOLISM 2.0-3.0 PREVENTION OF SYSTEMIC EMBOLISM FROM: TISSUE HEART VALVES 2.0-3.0 ACUTE MYOCARDIAL INFARCTION 2.0-3.0 VALVULAR HEART DISEASE 2.0-3.0 ATRIAL FIBRILLATION 2.0-3.0 MECHANICAL VALVES(HIGH RISK) 2.5-3.5 RECURRENT MYOCARDIAL INFARCTION 2.5-3.5 Prothrombin Time 27.9 s 11.8-14.0 Above high normal [facility] ID Date Data Source [id number] 09/24/2019 11:46:00 AM EST [facility] ([facility] Name Value Range Interpretation Code Description Data Joyce rce(s) Supporting Document(s) Glucose, Fasting 85 mg/dL 70-100 Normal (applies to non-numeric results) [facility] ([facility] Creatinine For GFR 0.78 mg/dL 0.55-1.30 Normal (applies to non -numeric results) [facility] ([facility] Blood Urea Nitrogen 16 mg/dL 7-18 Normal (applies to non-nume elías results) [facility] ([facility] Glomerular Filtration Rate Laboratory test result Normal (applies to non- numeric results) [facility] ([facility] ) <content>Units are mL/min/1.73 m2</content>
<content></content>
<content>Chronic Kidney Disease Staging per NKF:</content>
<content></content>
<content>Stage I & II GFR >=60 Normal to Mildly Decreased</content>
<content>Stage III GFR 30-59 Moderately Decreased</content>
<content>Stage IV GFR 15-29 Severely Decreased</content>
<content>Stage V GFR <15 Very Little GFR Left</content>
<content>ESRD GFR <15 on LENDING [employer]IVITIES SUPERVISOR</content>
<content></content> Sodium Level 141 meq/L 136-145 Normal (applies to non-numeric res ults) [facility] ( [facility] Potassium Serum 3.7 meq/L 3.5-5.1 Normal (applies to non-numeric results) [facility] ([facility] Carbon Dioxide Level 30 meq/L 21-32 Normal (applies to non-num trish results) [facility] ([facility] Chloride Level 107 meq/L 98-107 Normal (applies to non-numeric r esults) [facility] ([facility] Anion Gap 4 meq/L 8-16 Below low normal [facility] ( [facility] Calcium Level 8.7 mg/dL 8.5-10.1 Normal (applies to non-numeric re sults) [facility] ([facility] ID Date Data Source [id number] 09/24/2019 11:31:00 AM EST [facility] ([email or web address] Name Value Range Interpretation Code Description Data Joyce rce(s) Supporting Document(s) Prothrombin Time 32.5 s 11.8-14.0 Above high normal [facility] ([facility] Inr 3.17 Normal (applies to non-numeric resul ts) [facility] ([facility] THERAPUTIC HUMAN INR VALUES INDICATIONS NORMAL RANGES PROPHYLAXIS/TREATMENT OF: VENOUS THROMBOSIS 2.0-3.0 PULMONARY EMBOLISM 2.0-3.0 PREVENTION OF SYSTEMIC EMBOLISM FROM: TISSUE HEART VALVES 2.0-3.0 ACUTE MYOCARDIAL INFARCTION 2.0-3.0 VALVULAR HEART DISEASE 2.0-3.0 ATRIAL FIBRILLATION 2.0-3.0 MECHANICAL VALVES(HIGH RISK) 2.5-3.5 RECURRENT MYOCARDIAL INFARCTION 2.5-3.5 ID Date Data Source [id number] 09/17/2019 10:02:00 AM EST [facility] ([email or web address] Name Value Range Interpretation Code Description Data Joyce rce(s) Supporting Document(s) Inr 2.91 Normal (applies to non-numeric resul ts) [facility] ([facility] THERAPUTIC HUMAN INR VALUES INDICATIONS NORMAL RANGES PROPHYLAXIS/TREATMENT OF: VENOUS THROMBOSIS 2.0-3.0 PULMONARY EMBOLISM 2.0-3.0 PREVENTION OF SYSTEMIC EMBOLISM FROM: TISSUE HEART VALVES 2.0-3.0 ACUTE MYOCARDIAL INFARCTION 2.0-3.0 VALVULAR HEART DISEASE 2.0-3.0 ATRIAL FIBRILLATION 2.0-3.0 MECHANICAL VALVES(HIGH RISK) 2.5-3.5 RECURRENT MYOCARDIAL INFARCTION 2.5-3.5 Prothrombin Time 30.3 s 11.8-14.0 Above high normal M EDENT ([facility] ID Date Data Source [id number] 09/10/2019 10:04:00 AM EST [facility] ([facility] Name Value Range Interpretation Code Description Data Joyce rce(s) Supporting Document(s) Prothrombin Time 29.0 s 11.8-14.0 Above high normal M ED[facility] ([facility] Inr 2.75 Normal (applies to non-numeric resul ts) [facility] ([facility] THERAPUTIC HUMAN INR VALUES INDICATIONS NORMAL RANGES PROPHYLAXIS/TREATMENT OF: VENOUS THROMBOSIS 2.0-3.0 PULMONARY EMBOLISM 2.0-3.0 PREVENTION OF SYSTEMIC EMBOLISM FROM: TISSUE HEART VALVES 2.0-3.0 ACUTE MYOCARDIAL INFARCTION 2.0-3.0 VALVULAR HEART DISEASE 2.0-3.0 ATRIAL FIBRILLATION 2.0-3.0 MECHANICAL VALVES(HIGH RISK) 2.5-3.5 RECURRENT MYOCARDIAL INFARCTION 2.5-3.5 ID Date Data Source [id number] 09/03/2019 12:58:00 PM EST [facility] ([facility] Name Value Range Interpretation Code Description Data Joyce rce(s) Supporting Document(s) Inr 2.72 Normal (applies to non-numeric resul ts) [facility] ([facility] THERAPUTIC HUMAN INR VALUES INDICATIONS NORMAL RANGES PROPHYLAXIS/TREATMENT OF: VENOUS THROMBOSIS 2.0-3.0 PULMONARY EMBOLISM 2.0-3.0 PREVENTION OF SYSTEMIC EMBOLISM FROM: TISSUE HEART VALVES 2.0-3.0 ACUTE MYOCARDIAL INFARCTION 2.0-3.0 VALVULAR HEART DISEASE 2.0-3.0 ATRIAL FIBRILLATION 2.0-3.0 MECHANICAL VALVES(HIGH RISK) 2.5-3.5 RECURRENT MYOCARDIAL INFARCTION 2.5-3.5 Prothrombin Time 28.7 s 11.8-14.0 Above high normal M EDENT ([facility] ID Date Data Source [id number] 08/28/2019 12:54:00 PM EST [facility] ([facility] Name Value Range Interpretation Code Description Data Joyce rce(s) Supporting Document(s) Prothrombin Time 27.9 s 11.8-14.0 Above high normal M [facility] ([facility] Inr 2.63 Normal (applies to non-numeric resul ts) [facility] ([facility] THERAPUTIC HUMAN INR VALUES INDICATIONS NORMAL RANGES PROPHYLAXIS/TREATMENT OF: VENOUS THROMBOSIS 2.0-3.0 PULMONARY EMBOLISM 2.0-3.0 PREVENTION OF SYSTEMIC EMBOLISM FROM: TISSUE HEART VALVES 2.0-3.0 ACUTE MYOCARDIAL INFARCTION 2.0-3.0 VALVULAR HEART DISEASE 2.0-3.0 ATRIAL FIBRILLATION 2.0-3.0 MECHANICAL VALVES(HIGH RISK) 2.5-3.5 RECURRENT MYOCARDIAL INFARCTION 2.5-3.5 ID Date Data Source [id number] 08/24/2019 10:39:00 AM EST [facility], ) Name Value Range Interpretation Code Description Data Joyce rce(s) Supporting Document(s) Laboratory test finding (navigational concept) Laboratory test r esult Abnormal (applies to non-numeric results) [facility] ([facility], ) Laboratory test finding (navigational concept) Laboratory test result [facility] ([facility], ) Performed at: [facility] [id number] Relationship Manager: Stacey Avelar MD, Phone: [phone] Performed at: [facility] [id number] Relationship Manager: Avinash Piedra MD, Phone: [phone] ID Date Data Source [id number] 08/24/2019 10:39:00 AM EST [facility] ([facility], ) Name Value Range Interpretation Code Description Data Joyce rce(s) Supporting Document(s) Antinuclear Antibodies Direct Laboratory test result Abnormal (applies to non- numeric results) [facility] ([facility], ) Anti Double Strand-Dna AB 6 IU/ml 0-9 MEDE NT ([facility], ) <content>Negative <5</content>
<content>Equivocal 5 - 9</content>
<content>Positive >9</content>
<content></content> Morocho Antibodies Laboratory test result 0.0-0.9 [facility] ([facility], ) ADJUNCT PHLEBOTOMY INSTRUCTOR Antibodies Laboratory test result 0.0-0.9 [facility] ([facility], ) Sjogren's Anti SS-A Laboratory test result 0.0-0.9 [facility] ([facility], ) Sjogren's Anti SS-B Laboratory test result 0.0-0.9 [facility] ([facility], ) Kady Comment Laboratory test result RENITA Bryant ([facility]) . Autoantibody Disease Association Condition Frequency -------- --------- Antinuclear Antibody, SLE, mixed connective Direct (KADY-D) tissue diseases -------- --------- dsDNA SLE 40 - 60% -------- --------- Chromatin Drug induced SLE 90% SLE 48 - 97% -------- --------- SSA (Ro) SLE 25 - 35% Sjogren's Syndrome 40 - 70% Lupus 100% -------- --------- SSB (La) SLE 10% Sjogren's Syndrome 30% ------- --------- Sm (anti-Morocho) SLE 15 - 30% ------- --------- ADJUNCT PHLEBOTOMY INSTRUCTOR Mixed Connective Tissue Disease 95% (U1 nRNP, SLE 30 - 50% anti-ribonucleoprotein) Polymyositis and/or Dermatomyositis 20% -------- --------- Scl-70 (antiDNA Scleroderma (diffuse) 20 - 35% topoisomerase) Crest 13% -------- --------- Dakota-1 Polymyositis and/or Dermatomyositis 20 - 40% -------- --------- Centromere B Scleroderma - Crest variant 80% ID Date Data Source [id number] 08/24/2019 10:39:00 AM EST [facility] ([facility], ) Name Value Range Interpretation Code Description Data Joyce rce(s) Supporting Document(s) Thiamine [Mass/volume] in Blood 101.5 nmol/L 66.5-200.0 [facility] ([facility], ) Specimen Comment: Test(s) 800010-Kjqmiyl E(Alpha Tocopherol); 516308- Specimen Comment: Vitamin E(Gamma Tocopherol); 050406-Yikfryh B6; 752515- Specimen Comment: Vit. B1, Whole Blood Specimen Comment: was developed and its performance characteristics Specimen Comment: determined by [employer]. It has not been cleared or approved Specimen Comment: by the Food and Drug Administration. Pyridoxine [Mass/volume] in Serum or Plasma 6.9 ug/L 2.0-32.8 [facility] ([facility], ) Specimen Comment: Test(s) 498018-Vmbqddz E(Alpha Tocopherol); 513461- Specimen Comment: Vitamin E(Gamma Tocopherol); 384523-Zsvikzs B6; 915756- Specimen Comment: Vit. B1, Whole Blood Specimen Comment: was developed and its performance characteristics Specimen Comment: determined by [facility]. It has not been cleared or approved Specimen Comment: by the Food and Drug Administration. ID Date Data Source [id number] 08/24/2019 10:39:00 AM EST [facility] ([facility], ) Name Value Range Interpretation Code Description Data Joyce rce(s) Supporting Document(s) Vitamin E(Alpha Tocopherol) 7.1 mg/L 7.0-25.1 [facility] ([facility], ) Vitamin E(Gamma Tocopherol) 1.3 mg/L 0.5-5.5 [facility] ([facility], ) Reference intervals for alpha and gamma- tocopherol determined from National Health and Nutrition Examination Survey, 0077-9778. Individuals with alpha-tocopherol levels less than 5.0 mg/L are considered vitamin E deficient. ID Date Data Source [id number] 08/24/2019 10:39:00 AM EST [facility] ([facility], ) Name Value Range Interpretation Code Description Data Joyce rce(s) Supporting Document(s) Reagin Ab [Presence] in Serum by RPR Laboratory test result [facility] ([facility], ) Rheumatoid factor [Units/volume] in Serum or Plasma Laboratory test result [facility] ([facility], ) ID Date Data Source [id number] 08/24/2019 10:39:00 AM EST [facility] ([facility], ) Name Value Range Interpretation Code Description Data Joyce rce(s) Supporting Document(s) Vitamin B12 Level 448 pg/mL [facility] ([facility], ) VITAMIN B12 NORMAL RANGE NORMAL 247 - 911 PG/ML INDETERMINATE 211 - 246 PG/ML DEFICIENT LESS THAN 211 PG/ML Folate 8.1 ng/mL [facility] ([facility], ) FOLATE NORMAL RANGE NORMAL GREATER THAN 5.4 NG/ML INDETERMINATE 3.4-5.4 NG/ML DEFICIENT LESS THAN 3.4 NG/ML ID Date Data Source [id number] 08/24/2019 10:39:00 AM EST [facility] ([facility], ) Name Value Range Interpretation Code Description Data Joyce rce(s) Supporting Document(s) Thyrotropin [Units/volume] in Serum or Plasma 1.250 uIU/ML 0.358-3.74 0 [facility] ([facility]) ID Date Data Source [id number] 08/24/2019 10:39:00 AM EST [facility] ([facility], ) Name Value Range Interpretation Code Description Data Joyce rce(s) Supporting Document(s) Blood Urea Nitrogen 16 mg/dL 7-18 [facility] ([facility], ) Glucose, Fasting 92 mg/dL 70-100 [facility] ([facility]) Creatinine For GFR 0.78 mg/dL 0.55-1.30 [facility] ([facility]) Glomerular Filtration Rate Laboratory test result [facility] ([facility]) <content>Units are mL/min/1.73 m2</content>
<content></content>
<content>Chronic Kidney Disease Staging per NKF:</content>
<content></content>
<content>Stage I & II GFR >=60 Normal to Mildly Decreased</content>
<content>Stage III GFR 30- 59 Moderately Decreased</content>
<content>Stage IV GFR 15-29 Severely Decreased</content>
<content>Stage V GFR <15 Very Little GFR Left</content>
<content>ESRD GFR <15 on LENDING ACTIVITIES SUPERVISOR</content>
<content></content> Potassium Serum 3.6 meq/L 3.5-5.1 [facility] ([facility]) Sodium Level 139 meq/L 136-145 [facility] ([facility]) Chloride Level 104 meq/L 98-107 [facility] ([facility]) Carbon Dioxide Level 29 meq/L 21-32 [facility] ([facility]) Anion Gap 6 meq/L 8-16 [facility] ([facility]) Calcium Level 8.7 mg/dL 8.5-10.1 [facility] ([facility]) Alt/SGPT 22 U/L 12-78 [facility] Alkaline Phosphatase 63 U/L 45-117 [facility] ([facility]) Ast/Sgot 12 U/L 7-37 [facility] ([facility]) Albumin 3.5 GM/DL 3.2-5.2 [facility] ([facility]) Total Protein 7.1 GM/DL 6.4-8.2 [facility] ([facility], ) Bilirubin,Total 0.3 mg/dL 0.2-1.0 [facility] ([facility]) Albumin/Globulin Ratio 0.97 1.00-1.93 [facility] ([facility]) ID Date Data Source [id number] 08/24/2019 10:39:00 AM EST [facility] ([facility]) Name Value Range Interpretation Code Description Data Joyce rce(s) Supporting Document(s) Erythrocyte sedimentation rate by 2H Westergren method 20 mm/hr 0-2 0 [facility] ([facility]) ID Date Data Source [id number] 08/24/2019 10:39:00 AM EST [facility] ([facility]) Name Value Range Interpretation Code Description Data Joyce rce(s) Supporting Document(s) White Blood Count 3.7 10 4.0-10.0 [facility] ([facility], ) Hemoglobin 12.3 g/dL 12.0-15.5 [facility] ([facility]) Red Blood Count 4.76 10 4.00-5.40 [facility] ([facility]) Mean Corpuscular Hemoglobin 25.8 pg 27.0-33.0 [facility] ([facility]) Mean Corpuscular Volume 80.7 fl 80.0-96.0 M EDENT ([facility]) Hematocrit 38.4 % 36.0-47.0 [facility] ([facility]) Mean Corpuscular HGB Conc 32.0 g/dL 32.0-36.5 [facility] ([facility]) Red Cell Distribution Width 14.1 % 11.5-14.5 [facility] ([facility]) Platelet Count, Automated 158 10 150-450 [facility] ([facility]) [place] % 7.5 % 0.0-5.0 [facility] ([facility]) Lymph % 19.4 % 24.0-44.0 [facility] ([facility]) Neutrophils % 69.3 % 36.0-66.0 [facility] ([facility]) Immature Granulocyte % 0.3 % 0-3.0 [facility] ([facility]) Baso % 0.3 % 0.0-1.0 [facility] ([facility]) Eos % 3.2 % 0.0-3.0 [facility] ([facility]) Neutrophils # 2.6 10 1.5-8.5 [facility] ([facility]) Nucleated Red Blood Cell % 0.0 % 0-0 MED ENT ([facility]) [place] # 0.3 10 0.0-0.8 [facility] ([facility]) Lymph # 0.7 10 1.5-5.0 [facility] ([facility]) Baso # 0.0 10 0.0-0.2 [facility] ([facility]) Eos # 0.1 10 0.0-0.5 [facility] ([facility]) ID Date Data Source [id number] 08/24/2019 10:39:00 AM EST [facility] ([facility]) Name Value Range Interpretation Code Description Data Joyce rce(s) Supporting Document(s) Hemoglobin A1c 5.6 % [facility] ([facility]) REFERENCE RANGES: 4.5-5.6% NORMAL 5.7-6.4% SUGGESTS IMPAIRED GLUCOSE META BOLISM >= 6.5% ABNORMAL Estimated Average Glucose 114 mg/dL 60-110 [facility] ([facility]) ID Date Data Source [id number] 08/24/2019 10:39:00 AM EST [facility] ([facility] Name Value Range Interpretation Code Description Data Joyce rce(s) Supporting Document(s) Vitamin E(Alpha Tocopherol) 7.1 mg/L 7.0-25.1 Norm al (applies to non-numeric results) [facility] ([facility] ) Vitamin E(Gamma Tocopherol) 1.3 mg/L 0.5-5.5 Norm al (applies to non-numeric results) [facility] ([facility] ) Reference intervals for alpha and gamma- tocopherol determined from National Health and Nutrition Examination Survey, 2914-0799. Individuals with alpha-tocopherol levels less than 5.0 mg/L are considered vitamin E deficient. ID Date Data Source [id number] 08/24/2019 10:39:00 AM EST [facility] ([email or web address] Name Value Range Interpretation Code Description Data Joyce rce(s) Supporting Document(s) Rheumatoid factor [Units/volume] in Serum or Plasma Laboratory t est result Normal (applies to non-numeric results) [facility] ([facility] Reagin Ab [Presence] in Serum by RPR Laboratory test result Normal (applies to non-numeric results) [facility] ([facility] ID Date Data Source [id number] 08/24/2019 10:39:00 AM EST [facility] ([facility] Name Value Range Interpretation Code Description Data Joyce rce(s) Supporting Document(s) Vitamin B12 Level 448 pg/mL Normal (applies to non-numeri c results) [facility] ([facility] VITAMIN B12 NORMAL RANGE NORMAL 247 - 911 PG/ML INDETERMINATE 211 - 246 PG/ML DEFICIENT LESS THAN 211 PG/ML Folate 8.1 ng/mL Normal (applies to non-numeric resul ts) [facility] ([facility] FOLATE NORMAL RANGE NORMAL GREATER THAN 5.4 NG/ML INDETERMINATE 3.4-5.4 NG/ML DEFICIENT LESS THAN 3.4 NG/ML ID Date Data Source [id number] 08/24/2019 10:39:00 AM EST [facility] ([facility] Name Value Range Interpretation Code Description Data Joyce rce(s) Supporting Document(s) Thyrotropin [Units/volume] in Serum or Plasma 1.250 uIU/ML 0. 358-3.740 Normal (applies to non-numeric results) [facility] ([facility] ID Date Data Source [id number] 08/24/2019 10:39:00 AM EST [facility] ([facility] Name Value Range Interpretation Code Description Data Joyce rce(s) Supporting Document(s) Blood Urea Nitrogen 16 mg/dL 7-18 Normal (applies to non-nume elías results) [facility] ([facility] Glucose, Fasting 92 mg/dL 70-100 Normal (applies to non-numeric results) [facility] ([facility] Creatinine For GFR 0.78 mg/dL 0.55-1.30 Normal (applies to non -numeric results) [facility] ([facility] Sodium Level 139 meq/L 136-145 Normal (applies to non-numeric res ults) [facility] ([facility] Glomerular Filtration Rate Laboratory test result Normal (applies to non- numeric results) [facility] ([facility] ) <content>Units are mL/min/1.73 m2</content>
<content></content>
<content>Chronic Kidney Disease Staging per NKF:</content>
<content></content>
<content>Stage I & II GFR >=60 Normal to Mildly Decreased</content>
<content>Stage III GFR 30- 59 Moderately Decreased</content>
<content>Stage IV GFR 15-29 Severely Decreased</content>
<content>Stage V GFR <15 Very Little GFR Left</content>
<content>ESRD GFR <15 on LENDING ACTIVITIES SUPERVISOR</content>
<content></content> Potassium Serum 3.6 meq/L 3.5-5.1 Normal (applies to non-numeric results) [facility] ([facility] Chloride Level 104 meq/L 98-107 Normal (applies to non-numeric r esults) [facility] ([facility] Calcium Level 8.7 mg/dL 8.5-10.1 Normal (applies to non-numeric re sults) [facility] ([facility] Carbon Dioxide Level 29 meq/L 21-32 Normal (applies to non-num trish results) [facility] ([facility] Anion Gap 6 meq/L 8-16 Below low normal [facility] ( [facility] Alt/SGPT 22 U/L 12-78 Normal (applies to non-numeric resul ts) [facility] ([facility] Ast/Sgot 12 U/L 7-37 Normal (applies to non-numeric resul ts) [facility] ([facility] Alkaline Phosphatase 63 U/L 45-117 Normal (applies to non-num trish results) [facility] ([facility] Total Protein 7.1 GM/DL 6.4-8.2 Normal (applies to non-numeric re sults) [facility] ([facility] Albumin/Globulin Ratio 0.97 1.00-1.93 Below low normal [facility] ([facility] Bilirubin,Total 0.3 mg/dL 0.2-1.0 Normal (applies to non-numeric results) [facility] ([facility] Albumin 3.5 GM/DL 3.2-5.2 Normal (applies to non-numeric resul ts) [facility] ([facility] ID Date Data Source [id number] 08/24/2019 10:39:00 AM EST [facility] ([facility] Name Value Range Interpretation Code Description Data Joyce rce(s) Supporting Document(s) Erythrocyte sedimentation rate by Westergren method 20 mm/hr 0-20 Normal (applies to non-numeric results) [facility] ([facility] ID Date Data Source [id number] 08/24/2019 10:39:00 AM EST [facility] ([facility] Name Value Range Interpretation Code Description Data Joyce rce(s) Supporting Document(s) Laboratory test finding (navigational concept) Laboratory test r esult Above high normal [facility] ([facility] ) Performed at: - [facility] [address] [id number] Relationship Manager: Stacey Avelar MD, Phone: [phone] Performed at: - [facility] [address] [id number] Relationship Manager: Avinash Piedra MD, Phone: [phone] Laboratory test finding (navigational concept) Laboratory test r esult Abnormal (applies to non-numeric results) [facility] ID Date Data Source [id number] 08/24/2019 10:39:00 AM EST [facility] ([facility] Name Value Range Interpretation Code Description Data Joyce rce(s) Supporting Document(s) Red Blood Count 4.76 10 4.00-5.40 Normal (applies to non-numeric results) [facility] ([facility] White Blood Count 3.7 10 4.0-10.0 Below low normal M [facility] ([facility] Mean Corpuscular Volume 80.7 fl 80.0-96.0 Normal ( applies to non-numeric results) [facility] ([facility] ) Mean Corpuscular Hemoglobin 25.8 pg 27.0-33.0 Below low normal [facility] ([facility] Hemoglobin 12.3 g/dL 12.0-15.5 Normal (applies to non-numeric resul ts) [facility] ([facility] Hematocrit 38.4 % 36.0-47.0 Normal (applies to non-numeric resul ts) [facility] ([facility] Red Cell Distribution Width 14.1 % 11.5-14.5 Norm al (applies to non-numeric results) [facility] ([facility] ) Platelet Count, Automated 158 10 150-450 Normal (applies to non-numeric results) [facility] ([facility] ) Mean Corpuscular HGB Conc 32.0 g/dL 32.0-36.5 Normal (applies to non-numeric results) [facility] ([facility] ) Neutrophils % 69.3 % 36.0-66.0 Above high normal [facility] NT ([facility] Eos % 3.2 % 0.0-3.0 Above high normal [facility] ([facility] Lymph % 19.4 % 24.0-44.0 Below low normal [facility] ( [facility] [place] % 7.5 % 0.0-5.0 Above high normal [facility] ([facility] Immature Granulocyte % 0.3 % 0-3.0 Normal (applies to non-n umeric results) [facility] ([facility] Baso % 0.3 % 0.0-1.0 Normal (applies to non-numeric resul ts) [facility] ([facility] Nucleated Red Blood Cell % 0.0 % 0-0 Normal (applies to n on-numeric results) [facility] ([facility] [place] # 0.3 10 0.0-0.8 Normal (applies to non-numeric resul ts) [facility] ([facility] Lymph # 0.7 10 1.5-5.0 Below low normal [facility] ( [facility] Neutrophils # 2.6 10 1.5-8.5 Normal (applies to non-numeric re sults) [facility] ([facility] Eos # 0.1 10 0.0-0.5 Normal (applies to non-numeric resul ts) [facility] ([facility] Baso # 0.0 10 0.0-0.2 Normal (applies to non-numeric resul ts) [facility] ([facility] ID Date Data Source [id number] 08/24/2019 10:39:00 AM EST [facility] ([facility] Name Value Range Interpretation Code Description Data Joyce rce(s) Supporting Document(s) Estimated Average Glucose 114 mg/dL 60-110 Above high normal [facility] ([facility] Hemoglobin A1c 5.6 % Normal (applies to non-numeric r esults) [facility] ([facility] REFERENCE RANGES: 4.5-5.6% NORMAL 5.7-6.4% SUGGESTS IMPAIRED GLUCOSE META BOLISM >= 6.5% ABNORMAL ID Date Data Source [id number] 08/24/2019 10:39:00 AM EST [facility] ([facility] Name Value Range Interpretation Code Description Data Joyce rce(s) Supporting Document(s) Vitamin B1 Level Whole Blood 101.5 nmol/L 66.5-200.0 Nor mal (applies to non- numeric results) [facility] ([facility] ) Specimen Comment: Test(s) 700162-Hesblhv E(Alpha Tocopherol); 012865- Specimen Comment: Vitamin E(Gamma Tocopherol); 518212-Vlqoobn B6; 861255- Specimen Comment: Vit. B1, Whole Blood Specimen Comment: was developed and its performance characteristics Specimen Comment: determined by [facility]. It has not been cleared or approved Specimen Comment: by the Food and Drug Administration. Pyridoxine [Mass/volume] in Serum or Plasma 6.9 ug/L 2.0- 32.8 Normal (applies to non-numeric results) [facility] ([facility] Specimen Comment: Test(s) 531093-Wpujrrr E(Alpha Tocopherol); 707911- Specimen Comment: Vitamin E(Gamma Tocopherol); 346691-Rwcastk B6; 597309- Specimen Comment: Vit. B1, Whole Blood Specimen Comment: was developed and its performance characteristics Specimen Comment: determined by [facility]. It has not been cleared or approved Specimen Comment: by the Food and Drug Administration. ID Date Data Source [id number] 08/24/2019 10:39:00 AM EST [facility] Name Value Range Interpretation Code Description Data Joyce rce(s) Supporting Document(s) ADJUNCT PHLEBOTOMY INSTRUCTOR Antibodies Laboratory test result 0.0-0.9 Normal (a pplies to non-numeric results) [facility] ([facility] ) Antinuclear Antibodies Direct Laboratory test result Abnormal (applies to non- numeric results) [facility] ([facility] ) Anti Double Strand-Dna AB 6 IU/ml 0-9 Normal (applies to no n-numeric results) [facility] ([facility] <content>Negative <5</content>
<content>Equivocal 5 - 9</content>
<content>Positive >9</content>
<content></content> Kady Comment Laboratory test result Normal (applies to non- numeric results) [facility] ([facility] . Autoantibody Disease Association Condition Frequency -------- --------- Antinuclear Antibody, SLE, mixed connective Direct (KADY-D) tissue diseases -------- --------- dsDNA SLE 40 - 60% -------- --------- Chromatin Drug induced SLE 90% SLE 48 - 97% -------- --------- SSA (Ro) SLE 25 - 35% Sjogren's Syndrome 40 - 70% Lupus 100% -------- --------- SSB (La) SLE 10% Sjogren's Syndrome 30% ------- --------- Sm (anti-Morocho) SLE 15 - 30% ------- --------- ADJUNCT PHLEBOTOMY INSTRUCTOR Mixed Connective Tissue Disease 95% (U1 nRNP, SLE 30 - 50% anti-ribonucleoprotein) Polymyositis and/or Dermatomyositis 20% -------- --------- Scl-70 (antiDNA Scleroderma (diffuse) 20 - 35% topoisomerase) Crest 13% -------- --------- Dakota-1 Polymyositis and/or Dermatomyositis 20 - 40% -------- --------- Centromere B Scleroderma - Crest variant 80% Sjogren's Anti SS-A Laboratory test result 0.0-0.9 Above high norm al [facility] ([facility] Sjogren's Anti SS-B Laboratory test result 0.0-0.9 Piedad l (applies to non- numeric results) [facility] ([facility] ) Morocho Antibodies Laboratory test result 0.0-0.9 Normal ( applies to non-numeric results) [facility] ([facility] ) ID Date Data Source [id number] 08/22/2019 02:01:00 PM EST [facility] ([facility] Name Value Range Interpretation Code Description Data Joyce rce(s) Supporting Document(s) Prothrombin Time 24.2 s 11.8-14.0 Above high normal M [facility] ([facility] Inr 2.20 Normal (applies to non-numeric resul ts) [facility] ([facility] THERAPUTIC HUMAN INR VALUES INDICATIONS NORMAL RANGES PROPHYLAXIS/TREATMENT OF: VENOUS THROMBOSIS 2.0-3.0 PULMONARY EMBOLISM 2.0-3.0 PREVENTION OF SYSTEMIC EMBOLISM FROM: TISSUE HEART VALVES 2.0-3.0 ACUTE MYOCARDIAL INFARCTION 2.0-3.0 VALVULAR HEART DISEASE 2.0-3.0 ATRIAL FIBRILLATION 2.0-3.0 MECHANICAL VALVES(HIGH RISK) 2.5-3.5 RECURRENT MYOCARDIAL INFARCTION 2.5-3.5 ID Date Data Source [id number] 08/21/2019 07:47:27 AM EST [facility] Name Value Range Interpretation Code Description Data Joyce rce(s) Supporting Document(s) Progress Note [facility] WLYXGi2aJmLRTkCh40/FFLxaZNXji7ZpYUccQPw3PVvrVIVgQ9WvWZC3eD9oNUA7IJhBKbCmSbJuBMQi lbm [file] AgICAgICAgICAgICAgICAgICAgICAgICAgICAgICAgICAgICAgICAgICAgICAgICAgICAgICAgICAgIC AgICAgICAgICAgICAgICAgICAgICAgICAgICAgICAgDQogICAgICAgICAgICAgICAgICAgICAgICAgIC AgICAgICAgICAgICAgICAgICAgICAgICAgICAgICAg ICAgICAgICAgICAgICAgICAgICAgICAgICAgICAgICAgICAgICAgICAgDQogICAgICAgICAgICAgICAg ICAgICAgICAgICAgICAgICAgICAgICAgICAgICAgICAgICAgICAgICAgICAgICAgICAgICAgICAgICAg ICAgICAgICAgICAgICAgICAgICAgICAgDQogICAgIC AgICAgICAgICAgICAgICAgICAgICAgICAgICAgICAgICAgICAgICAgICAgICAgICAgICAgICAgICAgIC AgICAgICAgICAgICAgICAgICAgICAgICAgICAgICAgICAgDQogICAgICAgICAgICAgICAgICAgICAgIC AgICAgICAgICAgICAgICAgICAgICAgICAgICAgICAg ICAgICAgICAgICAgICAgICAgICAgICAgICAgICAgICAgICAgICAgICAgICAgDQogICAgICAgICAgICAg ICAgICAgICAgICAgICAgICAgICAgICAgICAgICAgICAgICAgICAgICAgICAgICAgICAgICAgICAgICAg ICAgICAgICAgICAgICAgICAgICAgICAgICAgDQogIC AgICAgICAgICAgICAgICAgICAgICAgICAgICAgICAgICAgICAgICAgICAgICAgICAgICAgICAgICAgIC AgICAgICAgICAgICAgICAgICAgICAgICAgICAgICAgICAgICAgDQogICAgICAgICAgICAgICAgICAgIC AgICAgICAgICAgICAgICAgICAgICAgICAgICAgICAg ICAgICAgICAgICAgICAgICAgICAgICAgICAgICAgICAgICAgICAgICAgICAgICAgDQogICAgICAgICAg ICAgICAgICAgICAgICAgICAgICAgICAgICAgICAgICAgICAgICAgICAgICAgICAgICAgICAgICAgICAg ICAgICAgICAgICAgICAgICAgICAgICAgICAgICAgDQ ogICAgICAgICAgICAgICAgICAgICAgICAgICAgICAgICAgICAgICAgICAgICAgICAgICAgICAgICAgIC WbGMVhECTeJJJzVLUiYTAkFEVgSWHnXTMrSBMxDIRqCRGkRLSjTUArOLn4I0pqGUHzJWYbYM3uFOi5Wl 8+PTwSOnBqBWO9soBguG2DAI9cw2NkIVmbGORro0Eq BHp2IV7RXXZhLUsdVV0VEMtspf6YIAEuPBPntINXp1meIiXoFLT5ZDWlBrxiDE5DEKUkF7nwotWxZLTx VAIORJeyVWNBBLmlPYCGQEBnFXPaNtDxGmZnTUPmEQFlLAIPAQ9WFfOrM8RsfO89FMJPRu3+DQplbmRv QjoMDxUhRUQvb8BaWJd3BU5ZXOHrQqrqr1CbWdXrKA CQZIbeID7NBTH3JOGhPAAkSu1BEZFrU592irGuIN7KYn4VNsYnXB2jrp3MGrXgUFCzDfpWXug1IZxgXS 7RtQPtHQeLqf7vyvDdshLMo9YbuoSuuFESn7AwxtHdPOVNb5IcPMHCNPHfiKOqNjL3NaIqUwGbJWF0GZ CxAZ4bEHlqRU0XAXI9EBmxPVLcPJJrU3uROkFqCIVz AaNamFboVT5JZmMzQ2UjdbIixUWwCqOnSJOEJe8+TDleigJnJykMDvT0VLHmo2EvYSo8FJ2NJIWfUHxm NX8DKGGczK3dOGrqOI6TKpInNQZcYCQLQuPkQ77rsOWqZQp7B0KoRnHhGAJiKoekPSKuZMzwZdOdRXFc WyBdDQogID4+ID4+YLdaUD5WPXiusiTtRYErHk3VKA ZfSPJdRY0qTMXbOQFsB0F8sNckEWNYSlIiK4iaeijfDZ3tXDXzC749fDjzroAaVPHlYVYcMu8TZXJoTR N0IHWumVSuNiUsJKHEAGmtPP4ZjPQgUIQ4yD8pQObnZVTzDQTmR7kVZpRcjIdfAR37mSoyjpTgoKKkBJ o+Fu8TCW4yk0JaCGs3hrDlWBtjJPG1CFdrHKWqHURl HTCiARP2ERH7IXGZSrLxHABvHNCvFSqfPLQbWMEwrs4NUYGpPKJrKJDmHPKoIPZeITZdBHahFGItXHJ9 ETRpAZOyMSKuSR0XIxNsYZFsUPZiIQrxEQTaKVEgsq5MMDPaSATfUkK4IZSoKJWaCJVfHKxyQOIqTTGa PVJ7RIFmOQKiWD2MBtCcYZAlQBElZPYsTQSqBGOnyj 9VYBZhDLYdSaO3UlFvJWTpNMKhRUdzWBQwWNJ9KxM6BEMmZRBjVP4LOvYdMTWmXZo3OXPvBXMhPIZrgp 9IWAUpDVDcDAXwKzTvVYYnLGAsTClcZGTiBBVcGDJjGVEgBOAkQE1LYdHoDBMlIGO8VTArLULyGWQywi 4HVXZzHAJtMXQ8JGZaIRHtWKNcMWxkTRNbGQV1PhL4 TRKaJMUfNF4BNuNwTNUeVLe9JnBiILHyGNCprp0OSARiRGMbTPx5HNSjUEZzGBVmNLzqZFRlKLI2PZxt UBWqBEDxJJ4DSzRfZKSwLClyUyAoCUMcTZXsps0TNRIiMYOkNPWfXoVkSEFwFVUoWOyhIXUlUASnQMP9 GBCeLIGjRN9CQjAtMLBsEiX3KpQjHRHdQMBefs4POS JxNEJdYxQ8VpJzXWAeOKPmKFvpVCFvAZNnMcn6DDJbBCHeYL6EQuFuZZFwWjV7MQteWBBkRMUpak0YWG BgNEBzVhvbUcTdTOYyFZNqFUaeSOMxEBNcGNgxDMQtVJQoWZ5DEaJmEDJrMaX2UpnrDMTqPODyjy9LER NmCZAmPCOeGYHeLLWwQCZvNJqsKUAbKHT1VhqkYPWa KCNlSM9RIoIiGIFdJtH0OGEjYRRqXJOqhl2VXKUeQMUgLmZ0EPBhBLGeNUByYZikYHQiEZK5EiYfFYGy YNYpMW3AXlYdKMDmJuK4KNFcUTDrOQDhob5YeEKscKelnf6BMHjNYx9ZfIukWOU3YHntFm4uhJVyDXXc BPMFAo8PlkPdNDByLSMMTRhmMRWoDEYwAMHxRYU7TC DtHxzhOAa4YPE0XHJ8QRB5KfC1MYKjGeH0TXDwVWF2KxVwKjQtXBVyJGFkNQLpYlf3QwiaMUn9YtA+IF 0gDQo+Ga6Kk0WahdT0qkKbMWrhXxM9ZW1IJIIJH6YFUw== ID Date Data Source [id number] 08/17/2019 11:49:00 AM EST [facility] ([facility] Name Value Range Interpretation Code Description Data Joyce rce(s) Supporting Document(s) Prothrombin Time 24.8 s 11.8-14.0 Above high normal M [facility] ([facility] Inr 2.26 Normal (applies to non-numeric resul ts) [facility] ([facility] THERAPUTIC HUMAN INR VALUES INDICATIONS NORMAL RANGES PROPHYLAXIS/TREATMENT OF: VENOUS THROMBOSIS 2.0-3.0 PULMONARY EMBOLISM 2.0-3.0 PREVENTION OF SYSTEMIC EMBOLISM FROM: TISSUE HEART VALVES 2.0-3.0 ACUTE MYOCARDIAL INFARCTION 2.0-3.0 VALVULAR HEART DISEASE 2.0-3.0 ATRIAL FIBRILLATION 2.0-3.0 MECHANICAL VALVES(HIGH RISK) 2.5-3.5 RECURRENT MYOCARDIAL INFARCTION 2.5-3.5 ID Date Data Source [id number] 08/09/2019 09:21:00 AM EST [facility] ([facility] Name Value Range Interpretation Code Description Data Joyce rce(s) Supporting Document(s) Prothrombin Time 27.8 s 11.8-14.0 Above high normal M [facility] ([facility] Inr 2.61 Normal (applies to non-numeric resul ts) [facility] ([facility] THERAPUTIC HUMAN INR VALUES INDICATIONS NORMAL RANGES PROPHYLAXIS/TREATMENT OF: VENOUS THROMBOSIS 2.0-3.0 PULMONARY EMBOLISM 2.0-3.0 PREVENTION OF SYSTEMIC EMBOLISM FROM: TISSUE HEART VALVES 2.0-3.0 ACUTE MYOCARDIAL INFARCTION 2.0-3.0 VALVULAR HEART DISEASE 2.0-3.0 ATRIAL FIBRILLATION 2.0-3.0 MECHANICAL VALVES(HIGH RISK) 2.5-3.5 RECURRENT MYOCARDIAL INFARCTION 2.5-3.5 ID Date Data Source [id number] 08/06/2019 12:30:00 PM EST [facility] ([facility] Name Value Range Interpretation Code Description Data Joyce rce(s) Supporting Document(s) Prothrombin Time 24.9 s 11.8-14.0 Above high normal M [facility] ([facility] Inr 2.27 Normal (applies to non-numeric resul ts) [facility] ([facility] THERAPUTIC HUMAN INR VALUES INDICATIONS NORMAL RANGES PROPHYLAXIS/TREATMENT OF: VENOUS THROMBOSIS 2.0-3.0 PULMONARY EMBOLISM 2.0-3.0 PREVENTION OF SYSTEMIC EMBOLISM FROM: TISSUE HEART VALVES 2.0-3.0 ACUTE MYOCARDIAL INFARCTION 2.0-3.0 VALVULAR HEART DISEASE 2.0-3.0 ATRIAL FIBRILLATION 2.0-3.0 MECHANICAL VALVES(HIGH RISK) 2.5-3.5 RECURRENT MYOCARDIAL INFARCTION 2.5-3.5 ID Date Data Source [id number] 08/02/2019 01:34:00 PM EST [facility] ([facility] Name Value Range Interpretation Code Description Data Joyce rce(s) Supporting Document(s) Glu 107 mg/dL 70-110 [facility] ([facility] CHRONIC KIDNEY DISEASE STAGING PER NKF: MALE GFR INTERPRETATION: 20-49 YRS: >60 mL/min Normal 50-59 YRS: >56 mL/min Normal 60-69 YRS: >49 mL/min Normal 70-79 YRS: >42 mL/min Normal 80 and above >35 mL/min Normal FEMALE GRF INTERPRETATION: 20-39 YRS: >60 mL/min Normal 40-49 YRS: >58 mL/min Normal 50-59 YRS: >51 mL/min Normal 60-69 YRS: >45 mL/min Normal 70-79 YRS: >39 mL/min Normal 80 and above >32 mL/min Normal BUN 12 mg/dL 8-23 [facility] ([facility] CHRONIC KIDNEY DISEASE STAGING PER NKF: MALE GFR INTERPRETATION: 20-49 YRS: >60 mL/min Normal 50-59 YRS: >56 mL/min Normal 60-69 YRS: >49 mL/min Normal 70-79 YRS: >42 mL/min Normal 80 and above >35 mL/min Normal FEMALE GRF INTERPRETATION: 20-39 YRS: >60 mL/min Normal 40-49 YRS: >58 mL/min Normal 50-59 YRS: >51 mL/min Normal 60-69 YRS: >45 mL/min Normal 70-79 YRS: >39 mL/min Normal 80 and above >32 mL/min Normal Creat 0.8 mg/dL 0.5-1.0 [facility] ([facility] CHRONIC KIDNEY DISEASE STAGING PER NKF: MALE GFR INTERPRETATION: 20-49 YRS: >60 mL/min Normal 50-59 YRS: >56 mL/min Normal 60-69 YRS: >49 mL/min Normal 70-79 YRS: >42 mL/min Normal 80 and above >35 mL/min Normal FEMALE GRF INTERPRETATION: 20-39 YRS: >60 mL/min Normal 40-49 YRS: >58 mL/min Normal 50-59 YRS: >51 mL/min Normal 60-69 YRS: >45 mL/min Normal 70-79 YRS: >39 mL/min Normal 80 and above >32 mL/min Normal BUN/Creatinine Ratio 15.6 Calc [facility] ([facility] CHRONIC KIDNEY DISEASE STAGING PER NKF: MALE GFR INTERPRETATION: 20-49 YRS: >60 mL/min Normal 50-59 YRS: >56 mL/min Normal 60-69 YRS: >49 mL/min Normal 70-79 YRS: >42 mL/min Normal 80 and above >35 mL/min Normal FEMALE GRF INTERPRETATION: 20-39 YRS: >60 mL/min Normal 40-49 YRS: >58 mL/min Normal 50-59 YRS: >51 mL/min Normal 60-69 YRS: >45 mL/min Normal 70-79 YRS: >39 mL/min Normal 80 and above >32 mL/min Normal Co2 26.1 mmol/L 22.0-29.0 [facility] ([facility] CHRONIC KIDNEY DISEASE STAGING PER NKF: MALE GFR INTERPRETATION: 20-49 YRS: >60 mL/min Normal 50-59 YRS: >56 mL/min Normal 60-69 YRS: >49 mL/min Normal 70-79 YRS: >42 mL/min Normal 80 and above >35 mL/min Normal FEMALE GRF INTERPRETATION: 20-39 YRS: >60 mL/min Normal 40-49 YRS: >58 mL/min Normal 50-59 YRS: >51 mL/min Normal 60-69 YRS: >45 mL/min Normal 70-79 YRS: >39 mL/min Normal 80 and above >32 mL/min Normal Na 137 mmol/L 136-145 [facility] ([facility] CHRONIC KIDNEY DISEASE STAGING PER NKF: MALE GFR INTERPRETATION: 20-49 YRS: >60 mL/min Normal 50-59 YRS: >56 mL/min Normal 60-69 YRS: >49 mL/min Normal 70-79 YRS: >42 mL/min Normal 80 and above >35 mL/min Normal FEMALE GRF INTERPRETATION: 20-39 YRS: >60 mL/min Normal 40-49 YRS: >58 mL/min Normal 50-59 YRS: >51 mL/min Normal 60-69 YRS: >45 mL/min Normal 70-79 YRS: >39 mL/min Normal 80 and above >32 mL/min Normal K 4.0 mmol/L 3.5-5.1 [facility] ([facility] CHRONIC KIDNEY DISEASE STAGING PER NKF: MALE GFR INTERPRETATION: 20-49 YRS: >60 mL/min Normal 50-59 YRS: >56 mL/min Normal 60-69 YRS: >49 mL/min Normal 70-79 YRS: >42 mL/min Normal 80 and above >35 mL/min Normal FEMALE GRF INTERPRETATION: 20-39 YRS: >60 mL/min Normal 40-49 YRS: >58 mL/min Normal 50-59 YRS: >51 mL/min Normal 60-69 YRS: >45 mL/min Normal 70-79 YRS: >39 mL/min Normal 80 and above >32 mL/min Normal CA 9.0 mg/dL 8.6-10.2 [facility] ([facility] CHRONIC KIDNEY DISEASE STAGING PER NKF: MALE GFR INTERPRETATION: 20-49 YRS: >60 mL/min Normal 50-59 YRS: >56 mL/min Normal 60-69 YRS: >49 mL/min Normal 70-79 YRS: >42 mL/min Normal 80 and above >35 mL/min Normal FEMALE GRF INTERPRETATION: 20-39 YRS: >60 mL/min Normal 40-49 YRS: >58 mL/min Normal 50-59 YRS: >51 mL/min Normal 60-69 YRS: >45 mL/min Normal 70-79 YRS: >39 mL/min Normal 80 and above >32 mL/min Normal Anion Gap 14 mmol/L [facility] ([facility] CHRONIC KIDNEY DISEASE STAGING PER NKF: MALE GFR INTERPRETATION: 20-49 YRS: >60 mL/min Normal 50-59 YRS: >56 mL/min Normal 60-69 YRS: >49 mL/min Normal 70-79 YRS: >42 mL/min Normal 80 and above >35 mL/min Normal FEMALE GRF INTERPRETATION: 20-39 YRS: >60 mL/min Normal 40-49 YRS: >58 mL/min Normal 50-59 YRS: >51 mL/min Normal 60-69 YRS: >45 mL/min Normal 70-79 YRS: >39 mL/min Normal 80 and above >32 mL/min Normal CL 100.2 mmol/L 98.0-107.0 [facility] ([facility] CHRONIC KIDNEY DISEASE STAGING PER NKF: MALE GFR INTERPRETATION: 20-49 YRS: >60 mL/min Normal 50-59 YRS: >56 mL/min Normal 60-69 YRS: >49 mL/min Normal 70-79 YRS: >42 mL/min Normal 80 and above >35 mL/min Normal FEMALE GRF INTERPRETATION: 20-39 YRS: >60 mL/min Normal 40-49 YRS: >58 mL/min Normal 50-59 YRS: >51 mL/min Normal 60-69 YRS: >45 mL/min Normal 70-79 YRS: >39 mL/min Normal 80 and above >32 mL/min Normal eGFR Non-Afr. Trinidadian 86 # [facility] ([facility] CHRONIC KIDNEY DISEASE STAGING PER NKF: MALE GFR INTERPRETATION: 20-49 YRS: >60 mL/min Normal 50-59 YRS: >56 mL/min Normal 60-69 YRS: >49 mL/min Normal 70-79 YRS: >42 mL/min Normal 80 and above >35 mL/min Normal FEMALE GRF INTERPRETATION: 20-39 YRS: >60 mL/min Normal 40-49 YRS: >58 mL/min Normal 50-59 YRS: >51 mL/min Normal 60-69 YRS: >45 mL/min Normal 70-79 YRS: >39 mL/min Normal 80 and above >32 mL/min Normal eGFR 100 # [facility] ( [facility] CHRONIC KIDNEY DISEASE STAGING PER NKF: MALE GFR INTERPRETATION: 20-49 YRS: >60 mL/min Normal 50-59 YRS: >56 mL/min Normal 60-69 YRS: >49 mL/min Normal 70-79 YRS: >42 mL/min Normal 80 and above >35 mL/min Normal FEMALE GRF INTERPRETATION: 20-39 YRS: >60 mL/min Normal 40-49 YRS: >58 mL/min Normal 50-59 YRS: >51 mL/min Normal 60-69 YRS: >45 mL/min Normal 70-79 YRS: >39 mL/min Normal 80 and above >32 mL/min Normal ID Date Data Source [id number] 08/02/2019 11:55:00 AM EST [facility] ([facility] Name Value Range Interpretation Code Description Data Joyce rce(s) Supporting Document(s) Prothrombin Time 25.4 s 11.8-14.0 Above high normal M [facility] ([facility] Inr 2.33 Normal (applies to non-numeric resul ts) [facility] ([facility] THERAPUTIC HUMAN INR VALUES INDICATIONS NORMAL RANGES PROPHYLAXIS/TREATMENT OF: VENOUS THROMBOSIS 2.0-3.0 PULMONARY EMBOLISM 2.0-3.0 PREVENTION OF SYSTEMIC EMBOLISM FROM: TISSUE HEART VALVES 2.0-3.0 ACUTE MYOCARDIAL INFARCTION 2.0-3.0 VALVULAR HEART DISEASE 2.0-3.0 ATRIAL FIBRILLATION 2.0-3.0 MECHANICAL VALVES(HIGH RISK) 2.5-3.5 RECURRENT MYOCARDIAL INFARCTION 2.5-3.5 ID Date Data Source [id number] 07/30/2019 12:55:00 PM EST [facility] ([facility] Name Value Range Interpretation Code Description Data Joyce rce(s) Supporting Document(s) Inr 2.29 Normal (applies to non-numeric resul ts) [facility] ([facility] THERAPUTIC HUMAN INR VALUES INDICATIONS NORMAL RANGES PROPHYLAXIS/TREATMENT OF: VENOUS THROMBOSIS 2.0-3.0 PULMONARY EMBOLISM 2.0-3.0 PREVENTION OF SYSTEMIC EMBOLISM FROM: TISSUE HEART VALVES 2.0-3.0 ACUTE MYOCARDIAL INFARCTION 2.0-3.0 VALVULAR HEART DISEASE 2.0-3.0 ATRIAL FIBRILLATION 2.0-3.0 MECHANICAL VALVES(HIGH RISK) 2.5-3.5 RECURRENT MYOCARDIAL INFARCTION 2.5-3.5 Prothrombin Time 25.0 s 11.8-14.0 Above high normal M [facility] ([facility] ID Date Data Source [id number] 07/27/2019 09:26:00 AM EST [facility] ([email or web address] Name Value Range Interpretation Code Description Data Joyce rce(s) Supporting Document(s) Inr 2.69 Normal (applies to non-numeric resul ts) [facility] ([facility] THERAPUTIC HUMAN INR VALUES INDICATIONS NORMAL RANGES PROPHYLAXIS/TREATMENT OF: VENOUS THROMBOSIS 2.0-3.0 PULMONARY EMBOLISM 2.0-3.0 PREVENTION OF SYSTEMIC EMBOLISM FROM: TISSUE HEART VALVES 2.0-3.0 ACUTE MYOCARDIAL INFARCTION 2.0-3.0 VALVULAR HEART DISEASE 2.0-3.0 ATRIAL FIBRILLATION 2.0-3.0 MECHANICAL VALVES(HIGH RISK) 2.5-3.5 RECURRENT MYOCARDIAL INFARCTION 2.5-3.5 Prothrombin Time 28.5 s 11.8-14.0 Above high normal M [facility] ([facility] ID Date Data Source [id number] 07/23/2019 10:03:00 AM EST [facility] ([email or web address] [facility] Name Value Range Interpretation Code Description Data Joyce rce(s) Supporting Document(s) Prothrombin Time 25.7 s 11.8-14.0 Above high normal M [facility] ([facility] Inr 2.37 Normal (applies to non-numeric resul ts) [facility] ([facility] THERAPUTIC HUMAN INR VALUES INDICATIONS NORMAL RANGES PROPHYLAXIS/TREATMENT OF: VENOUS THROMBOSIS 2.0-3.0 PULMONARY EMBOLISM 2.0-3.0 PREVENTION OF SYSTEMIC EMBOLISM FROM: TISSUE HEART VALVES 2.0-3.0 ACUTE MYOCARDIAL INFARCTION 2.0-3.0 VALVULAR HEART DISEASE 2.0-3.0 ATRIAL FIBRILLATION 2.0-3.0 MECHANICAL VALVES(HIGH RISK) 2.5-3.5 RECURRENT MYOCARDIAL INFARCTION 2.5-3.5 ID Date Data Source [id number] 07/19/2019 04:00:00 PM EST [facility] ([facility] Name Value Range Interpretation Code Description Data Joyce rce(s) Supporting Document(s) Bacteria identified in Unspecified specimen by Aerobe culture Laboratory test result [facility] ([facility] Preliminary report Bacteria identified in Unspecified specimen by Culture Laborator y test result [facility] ([facility] ) No growth in 36 - 48 hours. ID Date Data Source [id number] 07/19/2019 09:18:00 AM EST [facility] ([facility] Name Value Range Interpretation Code Description Data Joyce rce(s) Supporting Document(s) Prothrombin Time 23.0 s 11.8-14.0 Above high normal M [facility] ([facility] Inr 2.06 Normal (applies to non-numeric resul ts) [facility] ([facility] THERAPUTIC HUMAN INR VALUES INDICATIONS NORMAL RANGES PROPHYLAXIS/TREATMENT OF: VENOUS THROMBOSIS 2.0-3.0 PULMONARY EMBOLISM 2.0-3.0 PREVENTION OF SYSTEMIC EMBOLISM FROM: TISSUE HEART VALVES 2.0-3.0 ACUTE MYOCARDIAL INFARCTION 2.0-3.0 VALVULAR HEART DISEASE 2.0-3.0 ATRIAL FIBRILLATION 2.0-3.0 MECHANICAL VALVES(HIGH RISK) 2.5-3.5 RECURRENT MYOCARDIAL INFARCTION 2.5-3.5 ID Date Data Source [id number] 07/16/2019 05:15:00 PM EST [facility] [address] [place] [id number] FOLLOW UP NOTENAME: BROOKS HENDRIX MPHYSICIAN: MANISHA RIGGINS, MDDATE OF SERVICE: 07/16/19DATE OF : 70ACCOUNT #: [id number]: BROOKS HENDRIXDate: Jul 16, 2019DOB: 1970Physician: Dr. 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 She has evidence of lupus pneumonitis with bibasalar groundglass opacities, fever, cough and dyspnea. She also has lupus nephritis and wasdiagnosed as a teenager on renal biopsy and treated with steroids al one.She had a left pulmonary embolism in December 2017. This occurred after a footsurgery in November 2017. Her boom operator Dr. Aparicio with antiphospholipidsyndrome antibody testing at [facility] and at [facility] and both are reported as positive. As a result she is now on Coumadin.More recently she has been using a foam INR testing machine but is concernedabout its reliability.She did some online research and found that home INR testing machines were notreliable in patients with antiphospholipid antibodies. She states that on occ she checked her INR on her machine and it was 3.4 and within 10minutes her INR done at the lab was 2.79. She also reports a lot of fluctuationin her INR. Her current warfarin dose is 5 milligrams tablets, 1.5 tabletsdaily on Tuesday and Tuesday and 2 tablets daily rest of the days. Her INR isbeing followed by primary care provider Subhash Her.[facility] also [facility] She also has problems with neuropathy which is beingfollowed by Dr. Bronson neurologist at [facility].She denies any history of skin rash or prior miscarriages. No history ofarterial thrombosis .INTERVAL HISTORY:Patient comes in on July 16, 2019 for a follow-up visit. She underwentsurgery in April and since then is concerned that her INR has beenfluctuating. She had started Benlysta and had to wait a while to get her INRmore stable. Since then the and I has slowly been creeping down. Recently danelle started famotidine as switch to a different form of calcium carbonate andvitamin D. She has not been eating many foods containing vitamin K. She hasnoticed skin lesion on the right side of her abdomen which is not itchy orpainful. She noticed this about 4 days ago. Complains of lupus s oreness.Generalized musculoskeletal pain for which she is on Robaxin. Has bursitis inthe hip. Cramps in the lower extremityPast Medical History:Lyme diseaseMigraine headachesNeuropathy (had MRi with bulging disks)Hx pulmonary embolus in 2017Urinary incontinence in 2015Endometriosis in 2014Hypertension (after pulmonary embolism taken off meds.) in 2014Hematuria syndrome in 2013Restless leg in 2013Hypocalcemia in 2012Depression in 2009Vitamin D deficiency in 2009Chronic Rhinitis in 2007Gastroesophageal reflux disease in 2007Hypothyroidism in 2006Systemic Lupus Erythematosus in 2005Past Surgical Hist ory:BRANDON-BSOHernia repair in 2002Cholecystectomy in 2000Tonsillectomy in 1996Laproscopy - 1994LEEP - 2013 w9Ixkvxcad ablastion and esure(slow arousing after anesthesia)Allergies:Doxycycline Hyclate, Emycin, Imipramine HCl, Methotrexate Sodium, Topamax, andUltram.Current Medications:Amoxicillin 1 Tablet (of 500 mg) Oral t.i.d. (Jul 16, 2019)Enoxaparin Sodium 150 mg (of 150 mg/mL) Subcutaneous daily (Feb 16, 2019)Nystatin 5 G (of 371901 Units/g) Cream Topical b.i.d. (Jul 16, 2019)Warfarin Sodium 2 Tablet (of 5 mg) Oral daily (Feb 02, 2019)Align 1 Capsule (of 4 mg) Oral daily (Start Date - unknown)Amoxicillin 1 Tablet (of 875 mg) Oral b.i.d. (Start Date - unknown)Azelastine HCl 2 spray(s) (of 0.15 %) Solution Nasal daily (Start Date -unknown)B-2-400 1 Capsule (of 400 mg) Oral daily (Start Date - unknown)Calcium (250 mg) Capsule Oral b.i.d. (Start Date - unknown)Cholecalciferol (10 mcg ) Tablet Oral daily (Start Date - unknown)Coumadin (5 mg) Tablet Oral Take as Directed (Start Date - unknown)Fish Oil Burp-Less 1 Tablet (of 1000 mg) Capsule Oral daily (Start Date -unknown)Klor-Con M10 (10 meq) Tablet, controlled release Oral Take as Directed (StartDate - unknown)Lisinopril-hydroCHLOROthiazide (10-12.5 mg) Tablet Oral daily (Start Date -unknown)Mupirocin (2 %) Ointment Topical Take as Directed (Start Date - unknown)Nystatin (438280 Units/g) Powder Topical Take as Directed (Start Date -unknown)Pantoprazole Sodium 1 Tablet (of 40 mg) Tablet, enteric coated Oral daily(Start Date - unknown)Pepcid 1 (40 mg) Tablet Oral daily (Start Date - unknown)Plaquenil 1 Tablet (of 200 mg) Oral b.i.d. (Start Date - unknown)Synthroid 1 Tablet (of 100 mcg) Oral daily (Start Date - unknown)predniSONE 1 Tablet (of 2.5 mg) Oral daily (Start Date - unknown)Social History:Ms. HENDRIX is and she is a disabled. Ms. HENDRIX has neversmoked. She has no history of drinking. Ms. HENDRIX reports no contact withhazardous material.Ms. HENDRIX reports the following support systems: lives with spouse,significant other, family, or friends. Her diet consists of regular meals. Sheindicates her activity level as: daily activities. 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 [facility]Review of Systems:ConstitutionalNo fevers, chills, night sweats, excessive fatigue or weight loss.Allergic/ImmunologicNo reactions.HeadEyesNo significant visual difficulties. No diplopia.Trying to get vision checked- difficult to read small print.ENMTNo problems with hearing, no sore throat, no sinus drainage.ruptured ear drumcauses popping in the ear.NeckEndocrineNo diabetes, thyroid disease or hormone replacement. No hot flashes or nightsweats.Hematologic/LymphaticNo easy bruising or bleeding. issues with jaw line-cramping and salivarygland swells up.BreastsNo abnormal masses of breast, no nipple discharge or pain.Respiratoryrecent pneumonia treated.CardiovascularNo anginal chest pain, palpitations or orthopnea.GastrointestinalNo nausea, vomiting, diarrhea, GI bleeding, or constipation. No change inbowel habits, no heartburn or early satiety.Genitourinary (F)freq of urinationMusculoskeletalhands and shoulders swollen with heat and SLE . left leg achyIntegumentaryTARGET LESION ON right side of abdomenNeurologicnumbness from neuropathyPsychiatricinsomnia- 6 hours of sleep per night for several nights. Started B2 around thesame timeVital Signs:Performed on Jul 16, 2019 15:85Srkvvg21.00 mhPziszf622.2 lbs(HIGH)BSA (derived)2.46 sq.mBMI46.86 (HIGH)Ncptjvwzowh45.2 NQzrkb652 /min(HIGH)Lumnaqvedmg98 /uleYL520/78Pulse Oximetry (O2 Sat)98 %Pain Kpynodvmqk3Dtnv RiskLow fall riskPerformance Status:1 - No physically strenuous activity, but ambulatory and able to carry outlight or sedentary work (e.g. office work, light house work). (ECOG)Physical Exam:ConstitutionalNormal - Alert, cooperative, oriented. Mood and affect appropriate. Appearsclose to chronological age. Well nourished. Well developed.HeadNormal - Normocephalic; no scars.EyesNormal - Conjunctivae and sclerae are clear and without icterus. Pupils arereactive and equal.ENMTNormal - Sinuses are nontender. No oral exudates, ulcers, masses, thrush ormucositis. Oropharynx clear. Tongue normal.NeckNormal - Supple without masses or thyromegaly. No jugular venous distension.Hematologic/LymphaticNormal - No petechiae or purpura. No tender or palpable lymph nodes in thecervical, supraclavicular, axillary or inguinal area.RespiratoryNormal - Lungs are clear to auscultation without rhonchi or wheezing.CardiovascularNormal - Regular rate and rhythm of heart without murmurs, gallops or rubs.ChestNormal - Chest is symmetric without chest wall deformities.AbdomenNormal - Non-tender, non- distended, no masses, ascites or hepatosplenomegaly.Good bowel sounds. No guarding or rebound tenderness. No pulsatile masses.Back/SpineNormal - No kyphosis, scoliosis, compression fractures. Non-tender topalpation.ExtremitiesNormal - No visible deformities, no cyanosis, clubbing or edema.MusculoskeletalNormal - No tenderness or swelling, normal range of motion without obviousweakness.IntegumentaryAbnormal - target lesion on abdomenNeurologicNormal - No sensory or motor deficits, normal cerebellar function, normalgait, cranial nerves intact.PsychiatricNormal - Alert and oriented times three. Coherent speech. Verbalizesunderstanding of our discussions today.Laboratory:Test performed on Jul 16, 2019 13:16INR2.11 (HIGH)Other test results are not available for this patient.Impression:#1 antiphospholipid antibody syndrome with history of pulmonary embolism onlong- term warfarin therapyPlan:#1 antiphospholipid antibody syndrome with history of pulmonary embolism onlong-term warfarin therapy-The patient is a 48-year-old female who wasapparently diagnosed with antiphospholipid antibody syndrome after a pulmonaryembolism. As per notes [facility]1.Non-reliability of INR self testing in antiphospholipid antibody syndromepatients-Pt has been having her INR tested the lab at [facility].2. Fluctuation of INR-Patient is using vitamin K 100 micrograms orally daily.She has been started on Benlysta and is on a different calcium and vitamin Dpreparation although these should not affect her INR. Famotidine would actuallyincrease the INR. Therefore at slight decrease in her INR does not explain. Idid discuss with the patient that in the best of situations there are sometimesfluctuations in INR that are unexplained. For now I would continue to manageher Coumadin since the daily dose has been increased by 1 milligram daily. Wedid not have her INR at the time that the patient was here but after she leftit came back at 2.15 and she was called and instructed to continue warfarin atcurrent dose of 13 milligrams daily.Electronically signed by:Manisha Wang:Subhash Robles MD Name Value Range Interpretation Code Description Data Joyce rce(s) Supporting Document(s) ID Date Data Source [id number] 07/16/2019 03:00:00 PM EST [facility] What anti-coagulants is pt. on ?? COUMAD IN Name Value Range Interpretation Code Description Data Joyce rce(s) Supporting Document(s) INR 2.11 0.91-1.09 [facility] INR THERAPEUTIC RANGES Prophylaxis of ve nous thrombosis ] (high risk surgery) ]Treatment of venous thrombosis ]Treatment of pulmonary embolism ]Prevention of systemic embolism ] 2.0-3.0Tissue heart valves ]Acute myocardial infarction ]Valvular disease ]Atrial fibrillation ]Recurrent systemic embolism ] Mechanical prosthetic heart valves -------- 2.5-3.5 ID Date Data Source [id number] 07/09/2019 11:25:00 AM EST [facility] ([facility] Name Value Range Interpretation Code Description Data Joyce rce(s) Supporting Document(s) Inr 1.98 Normal (applies to non-numeric resul ts) [facility] ([facility] THERAPUTIC HUMAN INR VALUES INDICATIONS NORMAL RANGES PROPHYLAXIS/TREATMENT OF: VENOUS THROMBOSIS 2.0-3.0 PULMONARY EMBOLISM 2.0-3.0 PREVENTION OF SYSTEMIC EMBOLISM FROM: TISSUE HEART VALVES 2.0-3.0 ACUTE MYOCARDIAL INFARCTION 2.0-3.0 VALVULAR HEART DISEASE 2.0-3.0 ATRIAL FIBRILLATION 2.0-3.0 MECHANICAL VALVES(HIGH RISK) 2.5-3.5 RECURRENT MYOCARDIAL INFARCTION 2.5-3.5 Prothrombin Time 22.3 s 11.8-14.0 Above high normal M EDENT ([facility] ID Date Data Source [id number] 07/02/2019 04:17:00 PM EST [facility] What anti-coagulants is pt. on ?? COUMAD IN Name Value Range Interpretation Code Description Data Joyce rce(s) Supporting Document(s) INR 1.84 0.91-1.09 [facility] INR THERAPEUTIC RANGES Prophylaxis of ve nous thrombosis ] (high risk surgery) ]Treatment of venous thrombosis ]Treatment of pulmonary embolism ]Prevention of systemic embolism ] 2.0-3.0Tissue heart valves ]Acute myocardial infarction ]Valvular disease ]Atrial fibrillation ]Recurrent systemic embolism ] Mechanical prosthetic heart valves -------- 2.5-3.5 ID Date Data Source [id number] 06/27/2019 04:34:00 PM EST [facility] ([facility] Name Value Range Interpretation Code Description Data Joyce rce(s) Supporting Document(s) CK-MB Value Mass Laboratory test result Normal ( applies to non-numeric results) [facility] ([facility] ) CPK Creatine Phosphokinase 68 U/L 26-192 Piedad l (applies to non-numeric results) [facility] ([facility] ) Troponin I Laboratory test result Normal (applies to non-n umeric results) [facility] ([facility] <content>Troponin I Reference Interval f or Siemens [place] LOCI:</content>
<content></content>
<content>99th Percentile= 0.00-0.045 ng/ml</content>
<content></content>
<content>Risk Stratification:</content>
<content><= 0.10 ng/ml Decreased Risk for Adverse Clinical</content>
<content>Events.</content>
<content>0.10-1.50 ng/ml Increased Risk for Adverse Clinical</content>
<content>Events. Evaluation of additional</content>
<content>criterion and/or repeat testing in 2-6</content>
<content>hours is suggested to rule out myocardial</content>
<content>damage.</content>
<content>>= 1.50 ng/ml Indicative of Myocardial Injury.</content>
<content></content> MB/CK Relative Index 1.47 Normal (applies to non-num tirsh results) [facility] ([facility] <content>DIAGNOSIS CRITERIA</content>
<content>MMB ng/ml Relative Index (RI)</content>
<content>NON-AMI < or = 5 N/A</content>
<content>HARDY ZONE > 5 < or = 4</content>
<content>AMI > 5 > 4</content>
<content></content> ID Date Data Source [id number] 06/27/2019 10:51:00 AM EST [facility] ([email or web address] Name Value Range Interpretation Code Description Data Joyce rce(s) Supporting Document(s) Lipoprotein lipase [Enzymatic activity/volume] in Serum or P lasma 120 U/L 73-393 Normal (applies to non-numeric results) [facility] ([facility] ID Date Data Source [id number] 06/27/2019 10:51:00 AM EST [facility] ([email or web address] Name Value Range Interpretation Code Description Data Joyce rce(s) Supporting Document(s) Ast/Sgot 18 U/L 7-37 Normal (applies to non-numeric resul ts) [facility] ([facility] Alt/SGPT 26 U/L 12-78 Normal (applies to non-numeric resul ts) [facility] ([facility] Alkaline Phosphatase 63 U/L 45-117 Normal (applies to non-num trish results) [facility] ([facility] Bilirubin,Total 0.3 mg/dL 0.2-1.0 Normal (applies to non-numeric results) [facility] ([facility] Total Protein 7.4 GM/DL 6.4-8.2 Normal (applies to non-numeric re sults) [facility] ([facility] Bilirubin,Direct Laboratory test result 0.0-0.2 Normal ( applies to non-numeric results) [facility] ([facility] ) Albumin 3.5 GM/DL 3.2-5.2 Normal (applies to non-numeric resul ts) [facility] ([facility] Albumin/Globulin Ratio 0.90 1.00-1.93 Below low normal [facility] ID Date Data Source [id number] 06/27/2019 10:51:00 AM EST DILMA ([facility] Name Value Range Interpretation Code Description Data Joyce rce(s) Supporting Document(s) Glucose, Fasting 93 mg/dL 70-100 Normal (applies to non-numeric results) [facility] ([facility] Blood Urea Nitrogen 12 mg/dL 7-18 Normal (applies to non-nume elías results) [facility] ([facility] Creatinine For GFR 0.93 mg/dL 0.55-1.30 Normal (applies to non -numeric results) [facility] ([facility] Glomerular Filtration Rate Laboratory test result Normal (applies to non- numeric results) [facility] ([facility] ) <content>Units are mL/min/1.73 m2</content>
<content></content>
<content>Chronic Kidney Disease Staging per NKF:</content>
<content></content>
<content>Stage I & II GFR >=60 Normal to Mildly Decreased</content>
<content>Stage III GFR 30-59 Moderately Decreased</content>
<content>Stage IV GFR 15-29 Severely Decreased</content>
<content>Stage V GFR <15 Very Little GFR Left</content>
<content>ESRD GFR <15 on LENDING ACTIVITIES SUPERVISOR</content>
<content></content> Potassium Serum 3.5 meq/L 3.5-5.1 Normal (applies to non-numeric results) [facility] ([facility] Sodium Level 140 meq/L 136-145 Normal (applies to non-numeric res ults) [facility] ([facility] Carbon Dioxide Level 31 meq/L 21-32 Normal (applies to non-num trish results) [facility] ([facility] Anion Gap 5 meq/L 8-16 Below low normal [facility] ( [facility] Chloride Level 104 meq/L 98-107 Normal (applies to non-numeric r esults) [facility] ([facility] Calcium Level 8.7 mg/dL 8.5-10.1 Normal (applies to non-numeric re sults) [facility] ID Date Data Source [id number] 06/27/2019 10:51:00 AM EST [facility] ([facility] Name Value Range Interpretation Code Description Data Joyce rce(s) Supporting Document(s) Prothrombin Time 23.3 s 11.8-14.0 Above high normal M [facility] ([facility] Inr 2.09 Normal (applies to non-numeric resul ts) [facility] ([facility] THERAPUTIC HUMAN INR VALUES INDICATIONS NORMAL RANGES PROPHYLAXIS/TREATMENT OF: VENOUS THROMBOSIS 2.0-3.0 PULMONARY EMBOLISM 2.0-3.0 PREVENTION OF SYSTEMIC EMBOLISM FROM: TISSUE HEART VALVES 2.0-3.0 ACUTE MYOCARDIAL INFARCTION 2.0-3.0 VALVULAR HEART DISEASE 2.0-3.0 ATRIAL FIBRILLATION 2.0-3.0 MECHANICAL VALVES(HIGH RISK) 2.5-3.5 RECURRENT MYOCARDIAL INFARCTION 2.5-3.5 Partial Thromboplastin Time 34.2 s 25.0-38.4 Norm al (applies to non-numeric results) [facility] ([facility] ) ID Date Data Source [id number] 06/27/2019 10:51:00 AM EST [facility] ([facility] Name Value Range Interpretation Code Description Data Joyce rce(s) Supporting Document(s) CK-MB Value Mass Laboratory test result Normal ( applies to non-numeric results) [facility] ([facility] ) CPK Creatine Phosphokinase 75 U/L 26-192 Piedad l (applies to non-numeric results) [facility] ([facility] ) MB/CK Relative Index 1.33 Normal (applies to non-num trish results) [facility] ([facility] <content>DIAGNOSIS CRITERIA</content>
<content>MMB ng/ml Relative Index (RI)</content>
<content>NON-AMI < or = 5 N/A</content>
<content>HARDY ZONE > 5 < or = 4</content>
<content>AMI > 5 > 4</content>
<content></content> Troponin I Laboratory test result Normal (applies to non-n umeric results) [facility] ([facility] <content>Troponin I Reference Interval f or Siemens [place] LOCI:</content>
<content></content>
<content>99th Percentile= 0.00-0.045 ng/ml</content>
<content></content>
<content>Risk Stratification:</content>
<content><= 0.10 ng/ml Decreased Risk for Adverse Clinical</content>
<content>Events.</content>
<content>0.10-1.50 ng/ml Increased Risk for Adverse Clinical</content>
<content>Events. Evaluation of additional</content>
<content>criterion and/or repeat testing in 2-6</content>
<content>hours is suggested to rule out myocardial</content>
<content>damage.</content>
<content>>= 1.50 ng/ml Indicative of Myocardial Injury.</content>
<content></content> ID Date Data Source [id number] 06/27/2019 10:51:00 AM EST [facility] ([facility] Name Value Range Interpretation Code Description Data Joyce rce(s) Supporting Document(s) White Blood Count 3.4 10 4.0-10.0 Below low normal M [facility] ([facility] Red Blood Count 4.75 10 4.00-5.40 Normal (applies to non-numeric results) [facility] ([facility] Hemoglobin 12.3 g/dL 12.0-15.5 Normal (applies to non-numeric resul ts) [facility] ([facility] Hematocrit 39.0 % 36.0-47.0 Normal (applies to non-numeric resul ts) [facility] ([facility] Mean Corpuscular Volume 82.1 fl 80.0-96.0 Normal ( applies to non-numeric results) [facility] ([facility] ) Mean Corpuscular Hemoglobin 25.9 pg 27.0-33.0 Below low normal [facility] ([facility] Red Cell Distribution Width 13.2 % 11.5-14.5 Norm al (applies to non-numeric results) [facility] ([facility] ) Platelet Count, Automated 159 10 150-450 Normal (applies to non-numeric results) [facility] ([facility] ) Mean Corpuscular HGB Conc 31.5 g/dL 32.0-36.5 Below low normal [facility] ([facility] Neutrophils % 66.5 % 36.0-66.0 Above high normal MEDE NT ([facility] Lymph % 20.3 % 24.0-44.0 Below low normal [facility] ( [facility] [place] % 8.1 % 0.0-5.0 Above high normal [facility] ([facility] Eos % 4.2 % 0.0-3.0 Above high normal [facility] ([facility] Baso % 0.3 % 0.0-1.0 Normal (applies to non-numeric resul ts) [facility] ([facility] Immature Granulocyte % 0.6 % 0-3.0 Normal (applies to non-n umeric results) [facility] ([facility] Neutrophils # 2.2 10 1.5-8.5 Normal (applies to non-numeric re sults) [facility] ([facility] Nucleated Red Blood Cell % 0.0 % 0-0 Normal (applies to n on-numeric results) [facility] ([facility] Lymph # 0.7 10 1.5-5.0 Below low normal [facility] ( [facility] [place] # 0.3 10 0.0-0.8 Normal (applies to non-numeric resul ts) [facility] ([facility] Eos # 0.1 10 0.0-0.5 Normal (applies to non-numeric resul ts) [facility] ([facility] Baso # 0.0 10 0.0-0.2 Normal (applies to non-numeric resul ts) [facility] ([facility] ID Date Data Source [id number] 06/25/2019 11:55:00 AM EST [facility] ([facility] Name Value Range Interpretation Code Description Data Joyce rce(s) Supporting Document(s) Prothrombin Time 22.5 s 11.8-14.0 Above high normal M [facility] ([facility] Inr 2.00 Normal (applies to non-numeric resul ts) [facility] ([facility] THERAPUTIC HUMAN INR VALUES INDICATIONS NORMAL RANGES PROPHYLAXIS/TREATMENT OF: VENOUS THROMBOSIS 2.0-3.0 PULMONARY EMBOLISM 2.0-3.0 PREVENTION OF SYSTEMIC EMBOLISM FROM: TISSUE HEART VALVES 2.0-3.0 ACUTE MYOCARDIAL INFARCTION 2.0-3.0 VALVULAR HEART DISEASE 2.0-3.0 ATRIAL FIBRILLATION 2.0-3.0 MECHANICAL VALVES(HIGH RISK) 2.5-3.5 RECURRENT MYOCARDIAL INFARCTION 2.5-3.5 Procedure Social History Code Duration Value Status Description Data Source(s ) Smoking 07/21/2020 12:00:00 AM EST Patient has never smoked co mpleted Patient has never smoked [facility] ([facility] ) Alcohol intake 05/19/2020 12:00:00 AM EDT Current non-d buster of alcohol (finding) completed Current non-drinker of alcohol (finding) [facility] Tobacco use and exposure 05/19/2020 12:00:00 AM EDT Never used co mpleted Never used [facility] Smoking 05/19/2020 12:00:00 AM EDT Never smoker completed Never s [facility] Alcohol intake 04/19/2020 12:00:00 AM EDT Current non-d buster of alcohol (finding) completed Current non-drinker of alcohol (finding) [facility] Alcohol intake 08/17/2019 12:00:00 AM EST Current non-d buster of alcohol (finding) completed Current non-drinker of alcohol (finding) [facility] Smoking 08/17/2019 12:00:00 AM EST Never smoker completed Never s [facility] Vital Signs ID Date Data Source UNK Name Value Range Interpretation Code Description Data Source(s) Body mass index (BMI) [Ratio] 50.9 kg/m2 50.9 k g/m2 [facility] ([facility] ) Body weight 335.00 [lb_av] 335.00 [lb_av] MEDEN T ([facility] ) Body height 68 [in_i] 68 [in_i] [facility] ([facility] ) 5'8" Body temperature 96.9 [degF] 96.9 [degF] [facility] ([facility] ) Body temperature 96.8 [degF] 96.8 [degF] [facility] ([facility] ) Respiratory rate 16 /min 16 /min [facility] ( [facility]) Heart rate 73 /min 73 /min [facility] ([facility] Body height 68 [in_i] 68 [in_i] [facility] ([facility]) 5'8" Body weight 336.38 [lb_av] 336.38 [lb_av] MEDEN T ([facility]) Body mass index (BMI) [Ratio] 51.1 kg/m2 51.1 k g/m2 [facility] ([facility]) Diastolic blood pressure 74 mm[Hg] 74 mm[Hg] [facility] ([facility]) Systolic blood pressure 113 mm[Hg] 113 mm[Hg] M EDENT ([facility]) Body temperature 96.8 [degF] 96.8 [degF] [facility] ([facility] ) Body weight 5362 [oz_av] 5362 [oz_av] THAD ([facility]) Systolic blood pressure 123 mm[Hg] 123 mm[Hg] A THENA ([facility]) Body mass index (BMI) [Ratio] 51 kg/m2 51 kg/ m2 THAD ([facility]) Body height 68 [in_i] 68 [in_i] THAD ([facility]) Body weight 5362 [oz_av] 5362 [oz_av] THAD ([facility]) Systolic blood pressure 123 mm[Hg] 123 mm[Hg] [facility] ([facility]) Body mass index (BMI) [Ratio] 51 kg/m2 51 kg/ m2 THAD ([facility]) Body height 68 [in_i] 68 [in_i] THAD ([facility]) Diastolic blood pressure 90 mm[Hg] 90 mm[Hg] THAD ([facility]) Body weight 5362 [oz_av] 5362 [oz_av] THAD ([facility]) Systolic blood pressure 123 mm[Hg] 123 mm[Hg] [facility] ([facility]) Body mass index (BMI) [Ratio] 51 kg/m2 51 kg/ m2 THAD ([facility]) Body height 68 [in_i] 68 [in_i] THAD ([facility]) Diastolic blood pressure 90 mm[Hg] 90 mm[Hg] THAD ([facility]) Body weight 5362 [oz_av] 5362 [oz_av] THAD ([facility]) Systolic blood pressure 123 mm[Hg] 123 mm[Hg] [facility] ([facility]) Body mass index (BMI) [Ratio] 51 kg/m2 51 kg/ m2 THAD ([facility]) Body height 68 [in_i] 68 [in_i] THAD ([facility]) Diastolic blood pressure 90 mm[Hg] 90 mm[Hg] THAD ([facility]) Systolic blood pressure 123 mm[Hg] 123 mm[Hg] [facility] ([facility]) Body mass index (BMI) [Ratio] 51 kg/m2 51 kg/ m2 THAD ([facility]) Body height 68 [in_i] 68 [in_i] THAD ([facility]) Diastolic blood pressure 90 mm[Hg] 90 mm[Hg] THAD ([facility]) Diastolic blood pressure 90 mm[Hg] 90 mm[Hg] THAD ([facility]) Body weight 5362 [oz_av] 5362 [oz_av] THAD ([facility]) Body weight 5392 [oz_av] 5392 [oz_av] THAD ([facility]) Systolic blood pressure 122 mm[Hg] 122 mm[Hg] A THEN ([facility]) Body mass index (BMI) [Ratio] 51.2 kg/m2 51.2 k g/m2 THAD ([facility]) Body height 68 [in_i] 68 [in_i] THAD ([facility]) Diastolic blood pressure 83 mm[Hg] 83 mm[Hg] THAD ([facility]) Body weight 5392 [oz_av] 5392 [oz_av] THAD ([facility]) Systolic blood pressure 122 mm[Hg] 122 mm[Hg] A THEN ([facility]) Body mass index (BMI) [Ratio] 51.2 kg/m2 51.2 k g/m2 THAD ([facility]) Body height 68 [in_i] 68 [in_i] THAD ([facility]) Diastolic blood pressure 83 mm[Hg] 83 mm[Hg] THAD ([facility]) Body weight 5392 [oz_av] 5392 [oz_av] THAD ([facility]) Systolic blood pressure 122 mm[Hg] 122 mm[Hg] A THEN ([facility]) Body mass index (BMI) [Ratio] 51.2 kg/m2 51.2 k g/m2 THAD ([facility]) Body height 68 [in_i] 68 [in_i] THAD ([facility]) Diastolic blood pressure 83 mm[Hg] 83 mm[Hg] THAD ([facility]) Body weight 5392 [oz_av] 5392 [oz_av] THAD ([facility]) Systolic blood pressure 122 mm[Hg] 122 mm[Hg] A THEN ([facility]) Body mass index (BMI) [Ratio] 51.2 kg/m2 51.2 k g/m2 THAD ([facility]) Body height 68 [in_i] 68 [in_i] THAD ([facility]) Diastolic blood pressure 83 mm[Hg] 83 mm[Hg] THAD ([facility]) Body weight 5392 [oz_av] 5392 [oz_av] THAD ([facility]) Systolic blood pressure 122 mm[Hg] 122 mm[Hg] A THEN ([facility]) Body mass index (BMI) [Ratio] 51.2 kg/m2 51.2 k g/m2 THAD ([facility]) Body height 68 [in_i] 68 [in_i] THAD ([facility]) Diastolic blood pressure 83 mm[Hg] 83 mm[Hg] THAD ([facility]) Body weight 5392 [oz_av] 5392 [oz_av] THAD ([facility]) Systolic blood pressure 122 mm[Hg] 122 mm[Hg] A THEN ([facility]) Body mass index (BMI) [Ratio] 51.2 kg/m2 51.2 k g/m2 THAD ([facility]) Body height 68 [in_i] 68 [in_i] THAD ([facility]) Diastolic blood pressure 83 mm[Hg] 83 mm[Hg] THAD ([facility]) Body weight 5392 [oz_av] 5392 [oz_av] THAD ([facility]) Systolic blood pressure 122 mm[Hg] 122 mm[Hg] A THEN ([facility]) Body mass index (BMI) [Ratio] 51.2 kg/m2 51.2 k g/m2 THAD ([facility]) Body height 68 [in_i] 68 [in_i] THAD ([facility]) Diastolic blood pressure 83 mm[Hg] 83 mm[Hg] THAD ([facility]) Body weight 5392 [oz_av] 5392 [oz_av] THAD ([facility]) Systolic blood pressure 122 mm[Hg] 122 mm[Hg] A THEN ([facility]) Body mass index (BMI) [Ratio] 51.2 kg/m2 51.2 k g/m2 THAD ([facility]) Body height 68 [in_i] 68 [in_i] THAD ([facility]) Diastolic blood pressure 83 mm[Hg] 83 mm[Hg] THAD ([facility]) Body weight 5392 [oz_av] 5392 [oz_av] THAD ([facility]) Systolic blood pressure 122 mm[Hg] 122 mm[Hg] A [place] ([facility]) Body mass index (BMI) [Ratio] 51.2 kg/m2 51.2 k g/m2 THAD ([facility]) Body height 68 [in_i] 68 [in_i] THAD ([facility]) Diastolic blood pressure 83 mm[Hg] 83 mm[Hg] THAD ([facility]) Body weight 5392 [oz_av] 5392 [oz_av] THAD ([facility]) Systolic blood pressure 122 mm[Hg] 122 mm[Hg] A [place] ([facility]) Body mass index (BMI) [Ratio] 51.2 kg/m2 51.2 k g/m2 THAD ([facility]) Body height 68 [in_i] 68 [in_i] THAD ([facility]) Diastolic blood pressure 83 mm[Hg] 83 mm[Hg] THAD ([facility]) Oxygen saturation in Arterial blood by Pulse oximetry 91 % 91 % MEDENT ([facility] Body height 68 [in_i] 68 [in_i] MEDENT ([facility] 5'8" Respiratory rate 16 /min 16 /min MEDENT ( [facility] Heart rate 76 /min 76 /min MEDENT ([facility] Body temperature 97.7 [degF] 97.7 [degF] MEDENT ([facility] Diastolic blood pressure 88 mm[Hg] 88 mm[Hg] MEDENT ([facility] Systolic blood pressure 148 mm[Hg] 148 mm[Hg] M EDENT ([facility] Oxygen saturation in Arterial blood by Pulse oximetry 98 % 98 % MEDENT ([facility] Body mass index (BMI) [Ratio] 50.0 kg/m2 50.0 k g/m2 MEDENT ([facility] Body weight 329.00 [lb_av] 329.00 [lb_av] DIANAEN T ([facility] Body height 68 [in_i] 68 [in_i] MEDENT ([facility] 5'8" Respiratory rate 20 /min 20 /min MEDENT ( [facility] Heart rate 84 /min 84 /min MEDENT ([facility] Body temperature 97.6 [degF] 97.6 [degF] MEDENT ([facility] Diastolic blood pressure 86 mm[Hg] 86 mm[Hg] MEDENT ([facility] Systolic blood pressure 148 mm[Hg] 148 mm[Hg] M EDENT ([facility] Body mass index (BMI) [Ratio] 50.0 kg/m2 50.0 k g/m2 MEDENT ([facility]) Body weight 329.00 [lb_av] 329.00 [lb_av] MEDEN T ([facility]) Body height 68 [in_i] 68 [in_i] MEDENT ([facility]) 5'8" Body temperature 95.3 [degF] 95.3 [degF] MEDENT ([facility]) Body surface area Derived from formula 2.53 m2 2.53 m2 [facility]) Body weight 149.234 kg 149.234 kg [facility] ([facility]) [place] body weight 140 [lb_av] 140 [lb_av] MEDEN T ([facility]) Body mass index (BMI) [Ratio] 50.0 kg/m2 50.0 k g/m2 MEDENT ([facility]) Body weight 329.00 [lb_av] 329.00 [lb_av] MEDEN T ([facility]) Body height 68 [in_i] 68 [in_i] MEDENT ([facility]) 5'8" Diastolic blood pressure 84 mm[Hg] 84 mm[Hg] MEDENT ([facility]) Systolic blood pressure 118 mm[Hg] 118 mm[Hg] M EDENT ([facility]) Body mass index (BMI) [Ratio] 50.2 kg/m2 50.2 k g/m2 MEDENT ([facility]) Diastolic blood pressure 78 mm[Hg] 78 mm[Hg] MEDENT ([facility]) Systolic blood pressure 115 mm[Hg] 115 mm[Hg] M EDENT ([facility]) Respiratory rate 18 /min 18 /min MEDENT ( [facility]) Heart rate 77 /min 77 /min MEDENT ([facility] Body height 68 [in_i] 68 [in_i] MEDENT ([facility] 5'8" Body weight 330.38 [lb_av] 330.38 [lb_av] MEDEN T ([facility]) Oxygen saturation in Arterial blood by Pulse oximetry 97 % 97 % MEDENT ([facility] Body mass index (BMI) [Ratio] 48.7 kg/m2 48.7 k g/m2 MEDENT ([facility] Body weight 320.00 [lb_av] 320.00 [lb_av] MEDEN T ([facility] Body height 68 [in_i] 68 [in_i] MEDENT ([facility] 5'8" Respiratory rate 16 /min 16 /min MEDENT ( [facility] Heart rate 72 /min 72 /min MEDENT ([facility] Body temperature 97.9 [degF] 97.9 [degF] MEDENT ([facility] Diastolic blood pressure 90 mm[Hg] 90 mm[Hg] MEDENT ([facility] Systolic blood pressure 136 mm[Hg] 136 mm[Hg] M EDENT ([facility] Body mass index (BMI) [Ratio] 49.6 kg/m2 49.6 k g/m2 MEDENT ([facility]) Diastolic blood pressure 74 mm[Hg] 74 mm[Hg] MEDENT ([facility]) Systolic blood pressure 117 mm[Hg] 117 mm[Hg] M EDENT ([facility]) Respiratory rate 18 /min 18 /min MEDENT ( [facility]) Heart rate 76 /min 76 /min MEDENT ([facility] Body height 68 [in_i] 68 [in_i] MEDENT ([facility] 5'8" Body weight 326.50 [lb_av] 326.50 [lb_av] MEDEN T ([facility]) Oxygen saturation in Arterial blood by Pulse oximetry 97 % 97 % MEDENT ([facility] Body mass index (BMI) [Ratio] 48.3 kg/m2 48.3 k g/m2 MEDENT ([facility] Body weight 318.00 [lb_av] 318.00 [lb_av] MEDEN T ([facility] Body height 68 [in_i] 68 [in_i] MEDENT ([facility] 5'8" Respiratory rate 16 /min 16 /min MEDENT ( [facility] Heart rate 80 /min 80 /min MEDENT ([facility] Body temperature 98.4 [degF] 98.4 [degF] MEDENT ([facility] Diastolic blood pressure 80 mm[Hg] 80 mm[Hg] MEDENT ([facility] Systolic blood pressure 104 mm[Hg] 104 mm[Hg] M EDENT ([facility] Body mass index (BMI) [Ratio] 48.7 kg/m2 48.7 k g/m2 MEDENT ([facility] ) Body weight 320.00 [lb_av] 320.00 [lb_av] MEDEN T ([facility] ) Body height 68 [in_i] 68 [in_i] MEDENT ([facility] ) 5'8" Body temperature 96.5 [degF] 96.5 [degF] MEDENT ([facility] ) Body surface area Derived from formula 2.51 m2 2.51 m2 MEDENT ([facility], ) Body weight 147.420 kg 147.420 kg MEDENT ([facility], ) [place] body weight 140 [lb_av] 140 [lb_av] MEDEN T ([facility]) Body mass index (BMI) [Ratio] 49.4 kg/m2 49.4 k g/m2 MEDENT ([facility]) Body weight 325.00 [lb_av] 325.00 [lb_av] MEDEN T ([facility]) Body height 68 [in_i] 68 [in_i] MEDENT ([facility]) 5'8" Diastolic blood pressure 82 mm[Hg] 82 mm[Hg] MEDENT ([facility]) Systolic blood pressure 112 mm[Hg] 112 mm[Hg] M EDENT ([facility]) Oxygen saturation in Arterial blood by Pulse oximetry 97 % 97 % MEDENT ([facility] Body mass index (BMI) [Ratio] 47.9 kg/m2 47.9 k g/m2 MEDENT ([facility] Body weight 315.00 [lb_av] 315.00 [lb_av] MEDEN T ([facility] Body height 68 [in_i] 68 [in_i] MEDENT ([facility] 5'8" Respiratory rate 16 /min 16 /min MEDENT ( [facility] Heart rate 79 /min 79 /min MEDENT ([facility] Body temperature 97.0 [degF] 97.0 [degF] MEDENT ([facility] Diastolic blood pressure 72 mm[Hg] 72 mm[Hg] MEDENT ([facility] Systolic blood pressure 122 mm[Hg] 122 mm[Hg] M EDENT ([facility] Oxygen saturation in Arterial blood by Pulse oximetry 97 % 97 % MEDENT ([facility] Body mass index (BMI) [Ratio] 48.2 kg/m2 48.2 k g/m2 MEDENT ([facility] Body weight 317.00 [lb_av] 317.00 [lb_av] MEDEN T ([facility] Body height 68 [in_i] 68 [in_i] MEDENT ([facility] 5'8" Respiratory rate 16 /min 16 /min MEDENT ( [facility] Heart rate 80 /min 80 /min MEDENT ([facility] Body temperature 98.0 [degF] 98.0 [degF] MEDENT ([facility] Diastolic blood pressure 86 mm[Hg] 86 mm[Hg] MEDENT ([facility] Systolic blood pressure 138 mm[Hg] 138 mm[Hg] M EDENT ([facility] Body mass index (BMI) [Ratio] 48.5 kg/m2 48.5 k g/m2 MEDENT ([facility] Body weight 319.00 [lb_av] 319.00 [lb_av] MEDEN T ([facility] Body height 68 [in_i] 68 [in_i] MEDENT ([facility] 5'8" Respiratory rate 18 /min 18 /min MEDENT ( [facility] Heart rate 68 /min 68 /min MEDENT ([facility] Body temperature 98.4 [degF] 98.4 [degF] MEDENT ([facility] Diastolic blood pressure 80 mm[Hg] 80 mm[Hg] MEDENT ([facility] Systolic blood pressure 126 mm[Hg] 126 mm[Hg] M EDENT ([facility] Oxygen saturation in Arterial blood by Pulse oximetry 97 % 97 % MEDENT ([facility] Body mass index (BMI) [Ratio] 48.5 kg/m2 48.5 k g/m2 MEDENT ([facility] Body weight 319.00 [lb_av] 319.00 [lb_av] MEDEN T ([facility] Body height 68 [in_i] 68 [in_i] MEDENT ([facility] 5'8" Respiratory rate 16 /min 16 /min MEDENT ( [facility] Heart rate 76 /min 76 /min MEDENT ([facility] Body temperature 98.2 [degF] 98.2 [degF] MEDENT ([facility] Diastolic blood pressure 74 mm[Hg] 74 mm[Hg] MEDENT ([facility] Systolic blood pressure 118 mm[Hg] 118 mm[Hg] M EDENT ([facility] Diastolic blood pressure 77 mm[Hg] 77 mm[Hg] eCW1 ([facility]) Systolic blood pressure 125 mm[Hg] 125 mm[Hg] e CW1 ([facility]) Body temperature 97.0 [degF] 97.0 [degF] eCW1 ( [facility]) Respiratory rate 18 /min 18 /min eCW1 ([facility]) Heart rate 94 /min 94 /min eCW1 ([facility]) Body mass index (BMI) [Ratio] 47.68 kg/m2 47.68 kg/m2 eCW1 ([facility]) Body height 67.5 [in_us] 67.5 [in_us] eCW1 ([facility]) Body weight Measured 309 [lb_av] 309 [lb_av] eC W1 ([facility]) [place] body weight 140 [lb_av] 140 [lb_av] MEDEN T ([facility] ) Body mass index (BMI) [Ratio] 47.0 kg/m2 47.0 k g/m2 MEDENT ([facility] ) Body weight 309.00 [lb_av] 309.00 [lb_av] MEDEN T ([facility] ) Body height 68 [in_i] 68 [in_i] [facility] 5'8" ID Date Data Source [id number] 05/19/2020 04:53:56 PM [facility] Name Value Range Interpretation Code Description Data Source(s) WEIGHT RECORDED 339 lb 339 lb [facility] Body height Measured 67 in 67 in [facility] Patient Treatment Plan of Care Planned Activity Planned Date Details Description Data Source (s) Tropicamide 10 MG/ML Ophthalmic Solution 04/17/2020 01:30:00 PM [facility] Phenylephrine Hydrochloride 25 MG/ML Ophthalmic Soluti on 04/17/2020 01:30:00 PM [facility] Proparacaine hydrochloride 5 MG/ML Ophthalmic Solution 04/17/2020 01:30:00 PM [facility] Albuterol Sulfate HFA 108 (90 Base) MCG/ ACT Inhalation Aerosol Solution (PROVENTIL HFA) 01/14/2020 12:00:00 AM [facility] fluorescein 10 % injection 500 mg 08/17/2019 04:00:00 PM [facility] fluorescein-benoxinate (FLURATE) 0.25-0.4 % ophthalmic solution 1 drop 08/17/2019 03:45:00 PM [facility] Phenylephrine Hydrochloride 25 MG/ML Ophthalmic Soluti on 08/17/2019 03:45:00 PM [facility] Tropicamide 10 MG/ML Ophthalmic Solution 08/17/2019 03:45:00 PM [facility] Nystatin [id number] UNT/ML Topical Cream 07/16/2019 12:00:00 AM [facility] Suprep Bowel Prep Kit 17.5 gram-3.13 gram-1.6 gram oral solution THAD ([facility]) Prednisone 2.5 MG Oral Tablet [place] ([facility]) Prednisone 10 MG Oral Tablet [place] ([facility]) pantoprazole 40 MG Delayed Release Oral Tablet [place] ([facility]) Nystatin [id number] UNT/ML Topical Cream [place] ([facility]) Hydrochlorothiazide 12.5 MG / Lisinopril 10 MG Oral Tablet THAD ([facility]) duloxetine 30 MG Delayed Release Oral Capsule THAD ([facility]) Citalopram 20 MG Oral Tablet THAD ([facility]) Cephalexin 500 MG Oral Capsule THAD ([facility]) mycophenolate mofetil 500 MG Oral Tablet [Cellcept] THAD ([facility]) Benlysta 200 mg/mL subcutaneous auto-injector THAD ([facility]) Baclofen 5 MG Oral Tablet AT SUJIT ([facility]) Baclofen 10 MG Oral Tablet A THENA ([facility]) [facility] Alp[facility] 0.5 MG Oral Tablet THAD ([facility]) zonisamide 50 MG Oral Capsule THAD ([facility]) zonisamide 25 MG Oral Capsule THAD ([facility]) Suprep Bowel Prep Kit 17.5 gram-3.13 gram-1.6 gram oral solution THAD ([facility]) Prednisone 2.5 MG Oral Tablet THAD ([facility]) Prednisone 10 MG Oral Tablet THAD ([facility]) pantoprazole 40 MG Delayed Release Oral Tablet THAD ([facility]) Nystatin [id number] UNT/ML Topical Cream THAD ([facility]) Hydrochlorothiazide 12.5 MG / Lisinopril 10 MG Oral Tablet THAD ([facility]) duloxetine 30 MG Delayed Release Oral Capsule THAD ([facility]) Citalopram 20 MG Oral Tablet THAD ([facility]) Cephalexin 500 MG Oral Capsule THAD ([facility]) mycophenolate mofetil 500 MG Oral Tablet [Cellcept] THAD ([facility]) Benlysta 200 mg/mL subcutaneous auto-injector THAD ([facility]) Baclofen 5 MG Oral Tablet AT SUJIT ([facility]) Baclofen 10 MG Oral Tablet A THENA ([facility]) Amoxicillin 500 MG Oral Capsule THAD ([facility]) Alprazolam 0.5 MG Oral Tablet THAD ([facility]) zonisamide 50 MG Oral Capsule THAD ([facility]) zonisamide 25 MG Oral Capsule THAD ([facility]) Suprep Bowel Prep Kit 17.5 gram-3.13 gram-1.6 gram oral solution THAD ([facility]) Prednisone 2.5 MG Oral Tablet THAD ([facility]) Prednisone 10 MG Oral Tablet THAD ([facility]) pantoprazole 40 MG Delayed Release Oral Tablet THAD ([facility]) Nystatin [id number] UNT/ML Topical Cream THAD ([facility]) Hydrochlorothiazide 12.5 MG / Lisinopril 10 MG Oral Tablet THAD ([facility]) duloxetine 30 MG Delayed Release Oral Capsule THAD ([facility]) Citalopram 20 MG Oral Tablet THAD ([facility]) Cephalexin 500 MG Oral Capsule THAD ([facility]) mycophenolate mofetil 500 MG Oral Tablet [Cellcept] THAD ([facility]) Benlysta 200 mg/mL subcutaneous auto-injector THAD ([facility]) Baclofen 5 MG Oral Tablet AT SUJIT ([facility]) Baclofen 10 MG Oral Tablet A THENA ([facility]) Amoxicillin 500 MG Oral Capsule THAD ([facility]) Alprazolam 0.5 MG Oral Tablet THAD ([facility]) zonisamide 50 MG Oral Capsule THAD ([facility]) zonisamide 25 MG Oral Capsule THAD ([facility]) Suprep Bowel Prep Kit 17.5 gram-3.13 gram-1.6 gram oral solution THAD ([facility]) Prednisone 2.5 MG Oral Tablet THAD ([facility]) Prednisone 10 MG Oral Tablet THAD ([facility]) pantoprazole 40 MG Delayed Release Oral Tablet THAD ([facility]) Nystatin [id number] UNT/ML Topical Cream THAD ([facility]) Hydrochlorothiazide 12.5 MG / Lisinopril 10 MG Oral Tablet THAD ([facility]) duloxetine 30 MG Delayed Release Oral Capsule THAD ([facility]) Citalopram 20 MG Oral Tablet THAD ([facility]) Cephalexin 500 MG Oral Capsule THAD ([facility]) mycophenolate mofetil 500 MG Oral Tablet [Cellcept] THAD ([facility]) Benlysta 200 mg/mL subcutaneous auto-injector THAD ([facility]) Baclofen 5 MG Oral Tablet AT SUJIT ([facility]) Baclofen 10 MG Oral Tablet A THENA ([facility]) Amoxicillin 500 MG Oral Capsule THAD ([facility]) Alprazolam 0.5 MG Oral Tablet THAD ([facility]) Hydrochlorothiazide 12.5 MG / Lisinopril 10 MG Oral Tablet THAD ([facility]) duloxetine 30 MG Delayed Release Oral Capsule THAD ([facility]) Citalopram 20 MG Oral Tablet THAD ([facility]) Cephalexin 500 MG Oral Capsule THAD ([facility]) mycophenolate mofetil 500 MG Oral Tablet [Cellcept] THAD ([facility]) Benlysta 200 mg/mL subcutaneous auto-injector THAD ([facility]) Baclofen 5 MG Oral Tablet AT SUJIT ([facility]) Baclofen 10 MG Oral Tablet A THENA ([facility]) Amoxicillin 500 MG Oral Capsule THAD ([facility]) Alprazolam 0.5 MG Oral Tablet THAD ([facility]) zonisamide 50 MG Oral Capsule THAD ([facility]) zonisamide 25 MG Oral Capsule THAD ([facility]) Suprep Bowel Prep Kit 17.5 gram-3.13 gram-1.6 gram oral solution THAD ([facility]) Prednisone 5 MG Oral Tablet THAD ([facility]) Prednisone 2.5 MG Oral Tablet THAD ([facility]) Prednisone 10 MG Oral Tablet THAD ([facility]) pantoprazole 40 MG Delayed Release Oral Tablet THAD ([facility]) Nystatin [id number] UNT/ML Topical Cream THAD ([facility]) Hydrochlorothiazide 12.5 MG / Lisinopril 10 MG Oral Tablet THAD ([facility]) duloxetine 30 MG Delayed Release Oral Capsule THAD ([facility]) Citalopram 20 MG Oral Tablet THAD ([facility]) Cephalexin 500 MG Oral Capsule THAD ([facility]) mycophenolate mofetil 500 MG Oral Tablet [Cellcept] THAD ([facility]) Benlysta 200 mg/mL subcutaneous auto-injector THAD ([facility]) Baclofen 5 MG Oral Tablet AT SUJIT ([facility]) Baclofen 10 MG Oral Tablet A THENA ([facility]) Amoxicillin 500 MG Oral Capsule THAD ([facility]) Alprazolam 0.5 MG Oral Tablet THAD ([facility]) zonisamide 50 MG Oral Capsule THAD ([facility]) zonisamide 25 MG Oral Capsule THAD ([facility]) Suprep Bowel Prep Kit 17.5 gram-3.13 gram-1.6 gram oral solution THAD ([facility]) Prednisone 5 MG Oral Tablet THAD ([facility]) Prednisone 2.5 MG Oral Tablet THAD ([facility]) Prednisone 10 MG Oral Tablet THAD ([facility]) pantoprazole 40 MG Delayed Release Oral Tablet THAD ([facility]) Nystatin 944741 UNT/ML Topical Cream THAD ([facility]) Hydrochlorothiazide 12.5 MG / Lisinopril 10 MG Oral Tablet THAD ([facility]) duloxetine 30 MG Delayed Release Oral Capsule THAD ([facility]) Citalopram 20 MG Oral Tablet THAD ([facility]) Cephalexin 500 MG Oral Capsule THAD ([facility]) mycophenolate mofetil 500 MG Oral Tablet [Cellcept] THAD ([facility]) zonisamide 50 MG Oral Capsule THAD ([facility]) zonisamide 25 MG Oral Capsule THAD ([facility]) Suprep Bowel Prep Kit 17.5 gram-3.13 gram-1.6 gram oral solution THAD ([facility]) Prednisone 2.5 MG Oral Tablet THAD ([facility]) Prednisone 10 MG Oral Tablet THAD ([facility]) pantoprazole 40 MG Delayed Release Oral Tablet THAD ([facility]) Nystatin [id number] UNT/ML Topical Cream THAD ([facility]) Hydrochlorothiazide 12.5 MG / Lisinopril 10 MG Oral Tablet THAD ([facility]) duloxetine 30 MG Delayed Release Oral Capsule THAD ([facility]) Citalopram 20 MG Oral Tablet THAD ([facility]) Cephalexin 500 MG Oral Capsule THAD ([facility]) mycophenolate mofetil 500 MG Oral Tablet [Cellcept] THAD ([facility]) Benlysta 200 mg/mL subcutaneous auto-injector THAD ([facility]) Baclofen 5 MG Oral Tablet AT SUJIT ([facility]) Baclofen 10 MG Oral Tablet A THENA ([facility]) Amoxicillin 500 MG Oral Capsule THAD ([facility]) Alprazolam 0.5 MG Oral Tablet THAD ([facility]) zonisamide 50 MG Oral Capsule THAD ([facility]) zonisamide 25 MG Oral Capsule THAD ([facility]) Benlysta 200 mg/mL subcutaneous auto-injector THAD ([facility]) Baclofen 5 MG Oral Tablet AT SUJIT ([facility]) Baclofen 10 MG Oral Tablet A THENA ([facility]) Amoxicillin 500 MG Oral Capsule THAD ([facility]) Alprazolam 0.5 MG Oral Tablet THAD ([facility]) zonisamide 50 MG Oral Capsule THAD ([facility]) zonisamide 25 MG Oral Capsule THAD ([facility]) Suprep Bowel Prep Kit 17.5 gram-3.13 gram-1.6 gram oral solution THAD ([facility]) Prednisone 5 MG Oral Tablet THAD ([facility]) Prednisone 2.5 MG Oral Tablet HTAD ([facility]) Prednisone 10 MG Oral Tablet THAD ([facility]) pantoprazole 40 MG Delayed Release Oral Tablet THAD ([facility]) Nystatin 911881 UNT/ML Topical Cream THAD ([facility]) Hydrochlorothiazide 12.5 MG / Lisinopril 10 MG Oral Tablet THAD ([facility]) duloxetine 30 MG Delayed Release Oral Capsule THAD ([facility]) Citalopram 20 MG Oral Tablet THAD ([facility]) Cephalexin 500 MG Oral Capsule THAD ([facility]) mycophenolate mofetil 500 MG Oral Tablet [Cellcept] THAD ([facility]) Benlysta 200 mg/mL subcutaneous auto-injector THAD ([facility]) Baclofen 5 MG Oral Tablet AT SUJIT ([facility]) Baclofen 10 MG Oral Tablet A THENA ([facility]) Amoxicillin 500 MG Oral Capsule THAD ([facility]) Alprazolam 0.5 MG Oral Tablet THAD ([facility]) zonisamide 50 MG Oral Capsule THAD ([facility]) zonisamide 25 MG Oral Capsule THAD ([facility]) Suprep Bowel Prep Kit 17.5 gram-3.13 gram-1.6 gram oral solution THAD ([facility]) Prednisone 5 MG Oral Tablet THAD ([facility]) Prednisone 2.5 MG Oral Tablet THAD ([facility]) Prednisone 10 MG Oral Tablet THAD ([facility]) pantoprazole 40 MG Delayed Release Oral Tablet THAD ([facility]) Nystatin [id number] UNT/ML Topical Cream THAD ([facility]) Hydrochlorothiazide 12.5 MG / Lisinopril 10 MG Oral Tablet THAD ([facility]) duloxetine 30 MG Delayed Release Oral Capsule THAD ([facility]) Citalopram 20 MG Oral Tablet THAD ([facility]) Cephalexin 500 MG Oral Capsule THAD ([facility]) mycophenolate mofetil 500 MG Oral Tablet [Cellcept] THAD ([facility]) Benlysta 200 mg/mL subcutaneous auto-injector THAD ([facility]) Baclofen 5 MG Oral Tablet AT SUJIT ([facility]) Baclofen 10 MG Oral Tablet A THENA ([facility]) Amoxicillin 500 MG Oral Capsule THAD ([facility]) Alprazolam 0.5 MG Oral Tablet THAD ([facility]) zonisamide 50 MG Oral Capsule THAD ([facility]) zonisamide 25 MG Oral Capsule THAD ([facility]) Suprep Bowel Prep Kit 17.5 gram-3.13 gram-1.6 gram oral solution THAD ([facility]) Prednisone 5 MG Oral Tablet THAD ([facility]) Prednisone 2.5 MG Oral Tablet THAD ([facility]) Prednisone 10 MG Oral Tablet THAD ([facility]) pantoprazole 40 MG Delayed Release Oral Tablet THAD ([facility]) Nystatin [id number] UNT/ML Topical Cream THAD ([facility])
[2020-08-19] MEDS ORDERED: FAMO40TA3 (11:13)
--- OUTSIDE RECORDS SUMMARY | 2020-08-19 11:53 | CCD ---
Author Author [facility] Organization [facility] Address Unknown Phone Unavailable Care Team Providers Care Service [employer] Driver Name Role Phone Donald Sandoval PA Unavailable [...] M Keke PA Unavailable Unavailable Scordo, M Kkee PA Unavailable Unavailable Scordo, M Keke PA [...] Unavailable Unavailable KIMBERLYSabino AL MD Unavailable Unavailable IKMBERLYSabino AL MD Unavailable Unavailable KIMBERLYSabino AL MD Unavailable Unavailable KIMBERLYSabino AL MD Unavailable Unavailable KIMBERLYSabino AL MD Unavailable Unavailable KIMBERLYSabino AL MD Unavailable Unavailable KIMBRELYSabino AL MD Unavailable Unavailable KIMBERLYSabino AL MD [...] Unavailable AlessandraBenjamin pepe MD Unavailable Unavailable Alessandra, [id number] MD Benjamin ALARCON Unavailable Alessandra, [id number] MD Benjamin ALARCON Unavailable Alessandra, [id number] MD Benjamin ALARCON Unavailable Alessandra, [id number] MD Benjamin ALARCON Unavailable Alessandra, [id number] MD Benjamin ALARCON Unavailable Alessandra, [id number] MD Benjamin ALARCON Unavailable Alessandra, [id number] MD Benjamin ALARCON Unavailable Alessandra, [id number] MD Benjamni ALARCON Unavailable Alessandra, [id number] MD Benjamin ALARCON Unavailable Alessandra, [id number] MD Benjamin MD Unavailable Alessandra, [id number] MD Benjamin MD Unavailable Alessandra, [id number] MD Benjamin MD Unavailable Alessandra, [id number] MD Benjamin MD Unavailable Alessandra, [id number] MD Benjamin MD Unavailable Alessandra, [id number] MD Benjamin MD Unavailable Alessandra, [id number] MD Benjamin MD Unavailable Alessandra, [id number] MD Benjamin MD Unavailable Alessandra, [id number] MD Benjamin MD Unavailable Alessandra, [id number] MD Benjamin MD Unavailable Alessandra, [id number] MD Benjamin MD Unavailable Alessandra, [id number] MD Benjamin MD Unavailable Alessandra, [id number] MD Benjamin MD Unavailable Alessandra, [id number] MD Benjamin MD Unavailable Alessandra, [id number] MD Benjamin MD Unavailable Alessandra, [id number] MD Benjamin MD Unavailable Alessandra, [id number] MD Benjamin MD Unavailable Alessandra, [id number] MD Benjamin MD Unavailable Alessandra, [id number] MD Benjamin MD Unavailable Alessandra, [id number] MD Benjamin MD Unavailable Alessandra, [id number] MD Benjamin MD Unavailable Alessandra, [id number] MD Benjamin MD Unavailable ANASTASIA, JOHANA MD [...] Unavailable ANASTASIA, JOHANA MD Unavailable Unavailable JONATAN KRER MD Unavailable Unavailable JONATAN KERR MD Unavailable [...] MCDANIEL MD Unavailable Unavailable Volcko, M Celeste POTATO PEELING MACHINE OPERATOR Unavailable Unavailable Volcko, M Celeste POTATO PEELING MACHINE OPERATOR Unavailable Unavailable Volcko, M Celeste POTATO PEELING MACHINE OPERATOR Unavailable Unavailable Volcko, M Celeste POTATO PEELING MACHINE OPERATOR Unavailable Unavailable Volcko, M Celeste POTATO PEELING MACHINE OPERATOR Unavailable Unavailable Volcko, M Celeste POTATO PEELING MACHINE OPERATOR Unavailable Unavailable Volcko, M Celeste POTATO PEELING MACHINE OPERATOR Unavailable Unavailable Volcko, M Celeste POTATO PEELING MACHINE OPERATOR Unavailable Unavailable Volcko, M Celeste POTATO PEELING MACHINE OPERATOR Unavailable Unavailable Volcko, M Celeste POTATO PEELING MACHINE OPERATOR Unavailable Unavailable Volcko, M Celeste POTATO PEELING MACHINE OPERATOR Unavailable Unavailable Volcko, M Celeste POTATO PEELING MACHINE OPERATOR Unavailable Unavailable Volcko, M Celeste POTATO PEELING MACHINE OPERATOR Unavailable Unavailable Volcko, M Celeste POTATO PEELING MACHINE OPERATOR Unavailable Unavailable Volcko, M Celeste POTATO PEELING MACHINE OPERATOR Unavailable Unavailable Volcko, M Celeste POTATO PEELING MACHINE OPERATOR Unavailable Unavailable Volcko, M Celeste POTATO PEELING MACHINE OPERATOR Unavailable Unavailable Volcko, M Celeste POTATO PEELING MACHINE OPERATOR Unavailable Unavailable Volcko, M Celeste POTATO PEELING MACHINE OPERATOR Unavailable Unavailable Volcko, M Celeste POTATO PEELING MACHINE OPERATOR Unavailable Unavailable Volcko, M Celeste POTATO PEELING MACHINE OPERATOR Unavailable Unavailable Volcko, M Celeste POTATO PEELING MACHINE OPERATOR Unavailable Unavailable Volcko, M Celeste POTATO PEELING MACHINE OPERATOR Unavailable Unavailable Volcko, M Celeste POTATO PEELING MACHINE OPERATOR Unavailable Unavailable Volcko, M Celeste POTATO PEELING MACHINE OPERATOR Unavailable Unavailable Volcko, M Celeste POTATO PEELING MACHINE OPERATOR Unavailable Unavailable Volcko, M Celeste POTATO PEELING MACHINE OPERATOR Unavailable Unavailable Volcko, M Celeste POTATO PEELING MACHINE OPERATOR Unavailable Unavailable Volcko, M Celeste POTATO PEELING MACHINE OPERATOR Unavailable Unavailable Volcko, M Celeste POTATO PEELING MACHINE OPERATOR Unavailable Unavailable Volcko, M Celeste POTATO PEELING MACHINE OPERATOR Unavailable Unavailable Volcko, M Celeste POTATO PEELING MACHINE OPERATOR Unavailable Unavailable Volcko, M Celeste POTATO PEELING MACHINE OPERATOR Unavailable Unavailable Volcko, M Celeste POTATO PEELING MACHINE OPERATOR Unavailable Unavailable Volcko, M Celeste POTATO PEELING MACHINE OPERATOR Unavailable Unavailable Volcko, M Celeste POTATO PEELING MACHINE OPERATOR Unavailable Unavailable Volcko, M Celeste POTATO PEELING MACHINE OPERATOR Unavailable Unavailable Sabino Baron Unavailable Unavailable Delfino, [...] Unavailable Delfino, D Maximo PA Unavailable Unavailable Deflino, D Maximo PA Unavailable Unavailable Delfino, D Maximo PA Unavailable Unavailable Delfino, D Maximo PA Unavailable Unavailable Delfino, D Maixmo PA Unavailable Unavailable Delfino, D Maximo PA [...] Unavailable Delfino, Sabino HERNANDEZ Unavailable Unavailable Fish, [facility], PA-C Unavailable Unavailabl e Fish, [facility], PA-C Unavailable Unavailabl e Fish, [facility], PA-C Unavailable Unavailabl e Fish, [facility], PA-C Unavailable Unavailabl e Fish, [facility], PA-C Unavailable Unavailabl e Fish, [facility], PA-C Unavailable Unavailabl e Fish, [facility], PA-C Unavailable Unavailabl e Fish, [facility], PA-C Unavailable Unavailabl e Fish, [facility], PA-C Unavailable Unavailabl e Fish, [facility], PA-C Unavailable Unavailabl e Fish, [facility], PA-C Unavailable Unavailabl e Fish, [facility], PA-C Unavailable Unavailabl e Fish, [facility], PA-C Unavailable Unavailabl e Fish, [facility], PA-C Unavailable Unavailabl e Fish, [facility], PA-C Unavailable Unavailabl e Fish, [facility], PA-C Unavailable Unavailabl e Fish, [facility], PA-C Unavailable Unavailabl e Fish, [facility], PA-C Unavailable Unavailabl e Fish, [facility], PA-C Unavailable Unavailabl e Fish, [facility], PA-C Unavailable Unavailabl e Fish, [facility], PA-C Unavailable Unavailabl e Fish, [facility], PA-C Unavailable Unavailabl e Fish, [facility], PA-C Unavailable Unavailabl e Fish, [facility], PA-C Unavailable Unavailabl e Fish, [facility], PA-C Unavailable Unavailabl e Fish, [facility], PA-C Unavailable Unavailabl e Fish, [facility], PA-C Unavailable Unavailabl e Fish, [facility], PA-C Unavailable Unavailabl e Fish, Merly So [...] Genaro Darrel PA Unavailable Unavailable Verbeck Jr, Alton Darrel PA Unavailable Unavailable Verbeck Jr, Alton Darrel PA Unavailable Unavailable Verbeck Jr, Genaro Darrel PA Unavailable Unavailable Verbeck Jr, Alton Darrel PA Unavailable Unavailable Verbeck Jr, Genaro Darrel PA Unavailable Unavailable Verbeck Jr, Alton Darrel PA Unavailable Unavailable Verbeck Jr, Genaro Darrel PA Unavailable Unavailable Verbeck Jr, Alton Darrel PA Unavailable Unavailable Verbeck Jr, Genaro Darrel PA Unavailable Unavailable Verbeck Jr, Alton Darrel PA Unavailable Unavailable Verbeck Jr, Alton Darrel PA Unavailable Unavailable Verbeck Jr, Genaro Darrel PA Unavailable Unavailable Verbeck Jr, Genaro Darrel PA Unavailable Unavailable Verbeck Jr, Alton Darrel PA Unavailable Unavailable Verbeck Jr, Genaro Darrel PA Unavailable Unavailable Verbeck Jr, Alton Darrel PA Unavailable Unavailable Verbeck Jr, Genaro Darrel PA Unavailable Unavailable Verbeck Jr, Alton Darrel PA Unavailable Unavailable Verbeck Jr, Alton Darrel PA Unavailable Unavailable Verbeck Jr, Alton Darrel PA Unavailable Unavailable Verbeck Jr, Alton Darrel PA Unavailable Unavailable Verbeck Jr, Alton Darrel PA Unavailable Unavailable Verbeck Jr, Alton Darrel PA Unavailable Unavailable Verbeck Jr, Alton Darrel PA Unavailable Unavailable Verbeck Jr, Alton Darrel PA Unavailable Unavailable Verbeck Jr, Alton Darrel PA Unavailable Unavailable Verbeck Jr, Alton Darrel PA Unavailable Unavailable Verbeck Jr, Alton Darrel PA Unavailable Unavailable Verbeck Jr, Genaro Darrel PA Unavailable Unavailable Verbeck Jr, Alton Darrel PA Unavailable Unavailable Verbeck Jr, Alton Darrel PA Unavailable Unavailable Verbeck Jr, Genaro Darrel PA Unavailable Unavailable Verbeck Jr, Alton Darrel PA Unavailable Unavailable Verbeck Jr, Genaro Darrel PA Unavailable Unavailable Verbeck Jr, Alton Darrel PA Unavailable Unavailable Sabino Baron PA [...] Delfino, D Maximo PA Unavailable Unavailable SWAN [id number], T RIGOBERTO [id number] Unavailable Unavailable SWAN [id number], T RIGOBERTO [id number] Unavailable Unavailable SWAN [id number], T RIGOBERTO [id number] Unavailable Unavailable Fish, J Joseph Unavailable Unavailable [...] is protected by Article 27-F of the [facility] Public Health law. If you continue you may have access to information: Regarding HIV / AIDS; Provided by facilities licensed or operated by the [facility] Office of Mental Health; or Provided by the [facility] Office for People With Developmental Disabilities. If such information is present, then the following [facility] mandated warning applies: This information has [...] law may result in a fine or half-way sentence or both. A general authorization for the release of medical or other information is NOT sufficient authorization for further disc losure. Allergies and Adverse Reactions Type Description Substance Reaction Status Data Source(s ) Drug allergy ZINISIMIDE ZINISIMIDE [facility] Drug allergy METHOTREXATE METHOTREXATE [facility] Drug allergy ERYTHROMYCIN ERYTHROMYCIN [facility] Drug allergy DOXYCYCLINE DOXYCYCLINE [facility] Drug allergy IMIPRAMINE IMIPRAMINE [facility], [place] Miscellaneous allergy ULTRAM ULTRAM [facility] Food allergy TOPAMAX TOPAMAX [facility] DRUG INGREDI ZONISAMIDE ZONISAMIDE [facility] BRANDNAME ULTRAM ULTRAM [facility] BRANDNAME TOPAMAX TOPAMAX [facility] Drug allergy DOXYCYCLINE DOXYCYCLINE [facility] Drug allergy METHOTREXATE METHOTREXATE [facility] Drug allergy IMIPRAMINE IMIPRAMINE [facility] Drug allergy ERYTHROMYCIN ERYTHROMYCIN [facility] Topamax 50 Topamax 50 Topamax 50 increase in creatinine levels [facility] Imipramine HCl Imipramine HCl Imipramine HCl increased heart rate Ac tive [facility] ([facility]) Methotrexate Methotrexate Methotrexate neck pain and migraines Activ e [facility]) Prilosec Prilosec Omeprazole 0.667 MG/ML Oral Susp ension [Prilosec] worsening heart burn Active eCW1 ([facility]) Ultram Ultram tramadol hydrochloride 50 MG Ora l Tablet [Ultram] tongue swelling Active eCW1 ([facility]) Clindamycin HCl Clindamycin HCl Clindamycin HCl Numbing/tingling of tongue Active [facility]) Doxycycline Hyclate Doxycycline Hyclate doxycycline hyclate 100 MG Oral Tablet rash, gi upset Active eCW1 ([facility]) Erythromycin Erythromycin Erythromycin 500 MG Delayed Rele ase Oral Tablet rash, gi upset Active eCW1 ([facility]) Family History Family Member Name Family Member Gender Family Member Status Date o f Status Description Data Source(s) Unknown Female Problem (finding) 05/07/2015 12:00:00 AM EDT [facility] ([facility]) Unknown Female Problem (finding) 05/07/2015 12:00:00 AM EDT [facility] ([facility]) Unknown Female Problem (finding) 05/07/2015 12:00:00 AM EDT [facility] ([facility]) Unknown Unknown Problem [facility] ([facility] ) Encounters Encounter Providers Location Date Indications Data Source(s ) Outpatient Attender: Celeste Swartz NP 05/25/2021 12:00:00 AM [facility] Outpatient Attender: RIGOBERTO NAVARRETE [id number] 10/17/2020 12:00:0 0 AM [facility] Attender: KIP MCDANIEL MD [facility] 08/12/2020 07:08:00 PM EST - 08/12/2020 07:08:00 PM EST [facility] ( [facility]) Office Visit Attender: SCARLET GARRETT MD Physical Therapy 01:00:00 PM EST [facility] ([facility]) Outpatient Attender: MAXIMO HERNANDEZ Physical Therapy 08/07/2020 08:00:00 AM EST [facility] ([facility]) Outpatient Attender: SCARLET GARRETT MD Physical Therapy 12:15:00 PM EST [facility] ([facility]) Rosalia [place]ocanerga [facility] [address] [place] [address], Ph. Attender: Rosalia Bocanegra [facility] Medical 08/04/2020 12:00:00 AM EST [facility]AD ([facility]) Outpatient Attender: JONATAN KERR MD Main Office 07/21/2020 09:45:00 AM EST [facility] ([facility] Outpatient Attender: Saray KIM PA-C Physical Therapy 07/21/2020 08:00:00 AM EST [facility] ([facility]) Rosalia Bocanegra [facility]: [address] [place] [address], Ph. Attender: Rosalia Bocanegra [facility] Medical 07/11/2020 12:00:00 AM EST THAD ([facility]) Rosalia Bocanegra [facility]: [address] [place] [address], Ph. Attender: Rosalia Bocanegra [facility] Medical 07/11/2020 12:00:00 AM EST THAD ([facility]) Rosalia Bocanegra [facility]: [address] [place] [address], Ph. Attender: Rosalia Bocanegra [facility] Medical 07/11/2020 12:00:00 AM EST [facility]AD ([facility]) Rosalia Bocanegra [facility]: [address] [place] [address], Ph. Attender: Rosalia Bocanegra [facility] Medical 07/11/2020 12:00:00 AM EST [facility]AD ([facility]) Keke Sandoval PA-C: [address] [place] [address], Ph. Attender: Keke HERNANDEZ [facility] Medical 07/04/2020 12:00:00 AM EST [facility]AD ([facility]) Keke Sandoval PA-C: [address], [place] [address], Ph. Attender: Keke HERNANDEZ [facility] Medical 07/04/2020 12:00:00 AM EST [facility]AD ([facility]) Keke Sandoval PA-C: [address], [place] [address], Ph. Attender: Keke HERNANDEZ [facility] Medical 07/04/2020 12:00:00 AM EST [facility]AD ([facility]) Keke Sandoval PA-C: [address], [place] [address], Ph. Attender: Keke HERNANDEZ [facility] Medical 07/04/2020 12:00:00 AM EST THAD ([facility]) Keke Sandoval PA-C: [address], [place] [address], Ph. Attender: Keke HERNANDEZ [facility] Medical 07/04/2020 12:00:00 AM EST [facility]AD ([facility]) Outpatient Attender: JOHANA RAMÍREZ MD Main office - [facility] 07/03/2020 08:00:00 AM EST [facility] ([facility]) Outpatient Attender: MAXIMO HERNANDEZ Physical Therapy 07/02/2020 12:00:00 PM EST [facility] ([facility]) Rosalia Bocanegra, [facility] [address], [place] [address], Ph. Attender: Rosalia Bocanegra [facility] Medical 06/30/2020 12:00:00 AM EST THAD ([facility]) Rosalia Bocanegra [facility]: [address] [place] [address], Ph. Attender: Rosalia Bocanegra [facility] Medical 06/30/2020 12:00:00 AM EST [facility]AD ([facility]) Rosalia Bocanegra LMS[facility]: [address], [place] [address], Ph. Attender: Rosalia Bocanegra [facility] Medical 06/30/2020 12:00:00 AM EST [facility]AD ([facility]) Rosalia Bocanegra [facility]: [address] [place] [address], Ph. Attender: Rosalia Bocanegra [facility] Medical 06/30/2020 12:00:00 AM EST [facility]AD ([facility]) Rosalia Bocanegra [facility]: [address] [place] [address], Ph. Attender: Rosalia Bocanegra [facility] Medical 06/30/2020 12:00:00 AM EST [facility]AD ([facility]) Rosalia Bocanegra [facility]: [address] [place] [address], Ph. Attender: Rosalia Bocanegra [facility] Medical 06/23/2020 12:00:00 AM EST [facility]AD ([facility]) Rosalia Bocanegra [facility]: [address] [place] [address], Ph. Attender: Rosalia Bocanegra [facility] Medical 06/23/2020 12:00:00 AM EST [facility]AD ([facility]) Rosalia Bocanegra [facility]: [address] [place] [address], Ph. Attender: Rosalia Bocanegra [facility] Medical 06/23/2020 12:00:00 AM EST [facility]AD ([facility]) Rosalia Bocanegra, [employer]: [address] [place] [address], Ph. Attender: Rosalia Bocanegra [facility] Medical 06/23/2020 12:00:00 AM EST [facility]AD ([facility]) Rosalia Bocanegra [facility] [address] [place] [address], Ph. Attender: Rosalia Bocanegra [facility] Medical 06/23/2020 12:00:00 AM EST [facility]AD ([facility]) Rosalia Bocanegra L[facility]: [address] [place] [address], Ph. Attender: Rosalia Bocanegra [facility] Medical 06/16/2020 12:00:00 AM EST [facility]AD ([facility]) Rosalia Bocanegra [facility]: [address] [place] [address], Ph. Attender: Rosalia Bocanegra [facility] Medical 06/16/2020 12:00:00 AM EST HTAD ([facility]) Rosalia Bocanegra [facility] [address] [place] [address], Ph. Attender: Rosalia Bocanegra [facility] Medical 06/16/2020 12:00:00 AM EST [facility]AD ([facility]) Rosalia Bocanegra [employer]: [address] [place] [address], Ph. Attender: Rosalia Bocanegra [facility] Medical 06/16/2020 12:00:00 AM EST [facility]AD ([facility]) Rosalia Bocanegra [facility]: [address] [place] [address], Ph. Attender: Rosalia Bocanegra [facility] Medical 06/16/2020 12:00:00 AM EST [facility]AD ([facility]) Rosalia Bocanegra [facility]: [address] [place] [address], Ph. Attender: Rosalia Bocanegra [facility] Medical 06/16/2020 12:00:00 AM EST [facility]AD ([facility]) Rsoalia Bocanegra [facility]: [address] [place] [address], Ph. Attender: Rosalia Bocanegra [facility] Medical 06/16/2020 12:00:00 AM EST [facility]AD ([facility]) Rosalia Bocanegra [facility]: [address] [place] [address], Ph. Attender: Rosalia Bocanegra [facility] Medical 06/13/2020 12:00:00 AM EST [facility]AD ([facility]) Rosalia Bocanegra [facility]: [address] [place] [address], Ph. Attender: Rosalia Bocanegra [facility] Medical 06/13/2020 12:00:00 AM EST [facility]AD ([facility]) Rosalia Bocanegra L[facility]: [address] [place] [address], Ph. Attender: Rosalia Bocanegra [facility] Medical 06/13/2020 12:00:00 AM EST [facility]AD ([facility]) Rosalia Bocanegra LMS[facility]: [address] [place] [address], Ph. Attender: Rosalia Landji [facility] Medical 06/13/2020 12:00:00 AM EST [facility]AD ([facility]) Rosalia Franklinji [facility] [address] [place] [address], Ph. Attender: Rosalia Sahra [facility] Medical 06/13/2020 12:00:00 AM EST [facility]AD ([facility]) Rosalia Sahra [facility] [address] [place] [address], Ph. Attender: Rosalia Sahra [facility] Medical 06/13/2020 12:00:00 AM EST [facility]AD ([facility]) Rosalia Bocanegra LMS[facility]: [address] [place] [address], Ph. Attender: Rosalia Bocanegra [facility] Medical 06/13/2020 12:00:00 AM EST [facility]AD ([facility]) Rosalia Bocanegra LMS[facility]: [address] [place] [address], Ph. Attender: Rosalia Bocanegra [facility] Medical 06/13/2020 12:00:00 AM EST [facility]AD ([facility]) Rosalia Bocanegra [facility] [address] [place] [address], Ph. Attender: Rosalia Bocanegra [facility] Medical 06/13/2020 12:00:00 AM EST [facility]AD ([facility]) Outpatient Attender: SCARLET GARRETT MD Physical Therapy 07:00:00 AM EST [facility] ([facility]) Keke Sandoval PA-C: [address] [place] [address], Ph. Attender: Keke HERNANDEZ [facility] Medical 06/06/2020 12:00:00 AM EST [facility]AD ([facility]) Rosalia Bocanegra LMS[facility]: [address], [place] [address], Ph. Attender: Rosalia Bocanegra [facility] Medical 06/06/2020 12:00:00 AM EST [facility]AD ([facility]) Keke Sandoval PA-C: [address], [place] [address], Ph. Attender: Keke HERNANDEZ [facility] Medical 06/06/2020 12:00:00 AM EST [facility]AD ([facility]) Rosalia Bocanegra L[facility]: [address], [place] [address], Ph. Attender: Rosalia Bocanegra [facility] Medical 06/06/2020 12:00:00 AM EST [facility]AD ([facility]) Keke Sandoval PA-C: [address], [place] [address], Ph. Attender: Keke HERNANDEZ [facility] Medical 06/06/2020 12:00:00 AM EST [facility]AD ([facility]) Rosalia Bocanegra LMS[facility]: [address], [place] [address], Ph. Attender: Rosalia Bocanegra [facility] Medical 06/06/2020 12:00:00 AM EST [facility]AD ([facility]) Keke Sandoval PA-C: [address], [facility] [address], Ph. Attender: Keke HERNANDEZ [facility] Medical 06/06/2020 12:00:00 AM EST [facility]AD ([facility]) Rosalia Bocanegra LMSW: [address], [place] [address], Ph. Attender: Rosalia Bocanegra [facility] Medical 06/06/2020 12:00:00 AM EST [facility]AD ([facility]) Keke Sandoval PA-C: [address], [place] [address], Ph. Attender: Keke HERNANDEZ [facility] Medical 06/06/2020 12:00:00 AM EST [facility]AD ([facility]) Rosalia Bocanegra LMSW: [address], [place] [address], Ph. Attender: Rosalia Bocanegra [facility] Medical 06/06/2020 12:00:00 AM EST [facility] ([facility]) Keke Sandoval PA-C: [address], [place] [address], Ph. Attender: Keke HERNANDEZ [facility] Medical 06/06/2020 12:00:00 AM EST [facility]AD ([facility]) Rosalia Bocanegra LMSW: [address], [place] [address], Ph. Attender: Rosalia Bocanegra [facility] Medical 06/06/2020 12:00:00 AM EST [facility]AD ([facility]) Keke Sandoval PA-C: [address], [place] [address], Ph. Attender: Keke HERNANDEZ [facility] Medical 06/06/2020 12:00:00 AM EST THAD ([facility]) Rosalia Bocanegra LMSW: [address], [place] [address], Ph. Attender: Rosalia Bocanegra [facility] Medical 06/06/2020 12:00:00 AM EST HTAD ([facility]) Keke Sandoval PA-C: [address], [facility] [address], Ph. Attender: Keke HERNANDEZ [facility] Medical 06/06/2020 12:00:00 AM EST THAD ([facility]) Rosalia Bocanegra LMSW: [address], [place] [address], Ph. Attender: Rosalia Bocanegra [facility] Medical 06/06/2020 12:00:00 AM EST THAD ([facility]) Keke Sandoval PA-C: [address], [place] [address], Ph. Attender: Keke HERNANDEZ [facility] Medical 06/06/2020 12:00:00 AM EST THAD ([facility]) Rosalia Bocanegra LMSW: [address], [place] [address], Ph. Attender: Rosalia Bocanegra [facility] Medical 06/06/2020 12:00:00 AM EST THAD ([facility]) Keke Sandoval PA-C: [address], [place] [address], Ph. Attender: Keke HERNANDEZ [facility] Medical 06/06/2020 12:00:00 AM EST THAD ([facility]) Rosalia Bocanegra LMSW: [address], [place] [address], Ph. Attender: Rosalia Bocanegra [facility] Medical 06/06/2020 12:00:00 AM EST THAD ([facility]) Office Visit Attender: Jeet HERNANDEZ Physical Therapy 02:00:00 PM EDT MEDVANESSA ([facility]) Outpatient Attender: MARY HILLS 05/28/2020 12:30:00 PM EDT [facility] Rosalia Bocanegra LMSW: [address] [place] [address], Ph. Attender: Rosalia Bocanegra [facility] Medical 05/28/2020 12:00:00 AM EDT THAD ([facility]) Rosalia Bocanegra LMSW: [address] [place] [address], Ph. Attender: Rosalia Bocanegra [facility] Medical 05/28/2020 12:00:00 AM EDT THAD ([facility]) Rosalia Bocanegra LMSW: [address] [place] [address], Ph. Attender: Rosalia Bocanegra [facility] Medical 05/28/2020 12:00:00 AM EDT [place] ([facility]) Rosalia Bocanegra LMSW: [address] [place] [address], Ph. Attender: Rosalia Bocanegra [facility] Medical 05/28/2020 12:00:00 AM EDT [place] ([facility]) Rosalia Bocanegra LMSW: [address] [place] [address], Ph. Attender: Rosalia Bocanegra [facility] Medical 05/28/2020 12:00:00 AM EDT [place] ([facility]) Rosalia Bocanegra LMSW: [address] [place] [address], Ph. Attender: Rosalia Bocanegra [facility] Medical 05/28/2020 12:00:00 AM EDT [place] ([facility]) Rosalia Bocanegra, [facility]: [address] [place] [address], Ph. Attender: Rosalia Bocanegra [facility] Medical 05/28/2020 12:00:00 AM EDT [place] ([facility]) Rosalia BocanegraAUTUMNSW: [address] [place] [address], Ph. Attender: Rosalia Bocanegra [facility] 05/28/2020 12:00:00 AM EDT [place] ([facility]) Rosalia BocanegraAUTUMNSW: [address] [place] [address], Ph. Attender: Rosalia Bocanegra [facility] 05/28/2020 12:00:00 AM EDT [place] ([facility]) Rosalia Bocanegra [facility] [address] [place] [address], Ph. Attender: Rosalia Bocanegra [facility] 05/28/2020 12:00:00 AM EDT [place] ([facility]) Outpatient Attender: Celeste Swartz NP [id number] 05/01 12:00:00 AM EDT - 05/19/2020 01:04:29 PM EDT Encounter for gynecological examination (general) (routine) without abnormal findings [facility] Encounter for gynecological examination (general) (routine) without abnormal findings Office Visit Attender: Jeet HERNANDEZ Physical Therapy 09:30:00 AM EDT DILMA ([facility]) Outpatient Attender: AARON ROTHMAN ALL 05/13/2020 04:25:02 PM EDT [facility] Outpatient Attender: [id number] Benjamin [facility]paricio [facility] 05/08/2020 08:57:00 AM EDT - 05/08/2020 08:58:00 AM EDT [facility] Patient discharged. Outpatient Attender: AARON GONSALVES ALL 05/07/2020 11:25:00 AM EDT [facility] Office Visit Attender: Jeet HERNANDEZ Physical Therapy 01:45:00 PM EDT MEDENT ([facility]) Outpatient Attender: SCARLET GARRETT MD Physical Therapy 02:00:00 PM EDT MEDENT ([facility]) Outpatient Attender: AARON ANDREWS [facility] ALL 04/28/2020 01:31:03 PM EDT [facility] Outpatient Attender: MARY Sandoval ALL 04/26/2020 12:00:19 AM EDT [facility] Outpatient Attender: MARY DALEY 04/25/2020 02:04:01 PM EDT [facility] Outpatient Attender: AARON ANDREWS [facility] ALL 04/25/2020 02:03:01 PM EDT [facility] Outpatient Attender: AARON ANDREWS [facility] ALL 04/25/2020 08:23:01 AM EDT [facility] Outpatient Attender: AARON ANDREWS [facility] ALL 04/23/2020 03:14:02 PM EDT [facility] Outpatient Attender: RIGOBERTO NAVARRETE [id number] 12:00:00 AM EDT - 04/17/2020 02:45:45 PM EDT Glomerular disease in systemic lupus erythematosus [facility] 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 Outpatient Attender: Ada HERNANDEZ Physical Therapy 01:15:00 PM EDT MEDENT ([facility]) Outpatient Attender: Maximo HERNANDEZ [place] [facility] 10/2019 10:20:00 AM EDT MEDENT ([facility] Outpatient Attender: SCARLET GARRETT MD Physical Therapy 01:30:00 PM EDT MEDENT ([facility]) Outpatient Attender: Joseph Piercesuant: Maximo HERNANDEZ 04/01/2020 03:13:00 PM EDT - 04/01/2020 04:13:00 PM EDT [facility] Outpatient Att[facility]: [facility] [place] [facility] 04/01/2020 11:00:00 AM EDT MEDENT ([facility] Outpatient Attender: JOHANA RAMÍREZ MD Main office - [facility] n 03/31/2020 10:00:00 AM EDT MEDENT ([facility]) Outpatient Attender: Jeet HERNANDEZ Physical Therapy 09:00:00 AM EDT MEDENT ([facility]) Outpatient Attender: Loren Roper/Gerard/Joshua mullins/Reindl 03/21/2020 09:00:00 AM EDT MEDENT ([facility] ) Outpatient Attender: SCARLET GARRETT MD Physical Therapy 02:30:00 PM EDT MEDENT ([facility]) Outpatient Attender: JONATAN KERR MD Main Office 03/20/2020 02:30:00 PM EDT MEDENT ([facility] Emergency Attender: SNEHA Kumarsultant: Maximo HERNANDEZ 03/17/2020 10:57:00 PM EDT - 03/18/2020 12:18:00 AM EDT [facility] Patient discharged. Outpatient Attender: SCARLET GARRETT MD Physical Therapy 03:30:00 PM EDT MEDENT ([facility]) Outpatient [id number] 03/04/2020 09:55:00 AM EDT - 03/04/2020 09:55:[address] [facility] Lab test Outpatient Attender: MANISHA RIGGINS MD ER-CTCMEDONC 03/03/2020 0 3:28:00 PM EDT [facility] Outpatient Attender: JOHANA RAMÍREZ MD Main office - [facility] 02/12/2020 01:45:00 PM EDT MEDENT ([facility]) Outpatient Attender: Benjamin Aparicio MDAttender: [id number] Benjamin Aparicio MD [facility] 02/07/2020 08:35:00 AM EDT - 02/07/2020 08:36:00 AM EDT M32. 9 [facility] M32.9 Patient discharged. Outpatient Attender: Maximo HERNANDEZ [place] [facility] 11:30:00 AM EDT MEDENT ([facility] Outpatient Referrer: JONATAN KERR MD 01/08/2020 03: 09:00 PM EDT [facility] Outpatient Referrer: JONATAN KERR MD 01/08/2020 03: 08:00 PM EDT [facility] Outpatient Referrer: JONATAN KERR MD 01/08/2020 03: 05:00 PM EDT [facility] Outpatient Attender: JONATAN KERR MD Main Office 01/08/2020 01:15:00 PM EDT MEDENT ([facility]) Outpatient Attender: Maximo Baron PAConsultant: Maximo HERNANDEZ 01/07/2020 08:18:53 AM EDT - 01/21/2020 08:59:00 AM EDT [facility] Patient discharged. Outpatient Attender: Maximo HERNANDEZ [place] [facility] 10/2019 02:40:00 PM EDT MEDENT ([facility] Outpatient Attender: SCARLET GARRETT MD Physical Therapy 02:30:00 PM EDT MEDENT ([facility]) Outpatient Attender: Loren Roper/Gerard/Joshua mullins/Reindl 12/20/2019 09:00:00 AM EDT MEDENT ([facility]IGUELITO [facility]) Outpatient Attender: Maximo HERNANDEZ [place] [facility] 02:20:00 PM EDT MEDENT ([facility] Outpatient Attender: JOHANA RAMÍREZ MD Main office - [facility] 12/14/2019 12:30:00 PM EDT MEDENT ([facility]) Outpatient Referrer: Maximo HERNANDEZ 12/03/2019 11:08:00 AM EDT [facility] Outpatient Attender: [facility]INS [facility] 12/03/2019 0 9:31:00 AM EDT [facility] Outpatient Attender: Maximo HERNANDEZ [place] [facility] 08/2019 03:00:00 PM EDT MEDENT ([facility] [...] M EDT [facility] Outpatient Attender: [id number] Benjamin Aparicio MD [facility] 11/06/2019 09:01:00 AM EDT - 11/06/2019 09:02:00 AM EDT [facility] Patient discharged. Outpatient Attender: JOHANA RAMÍREZ MD Main office - [facility] 10/19/2019 12:15:00 PM EDT MEDENT ([facility]) Outpatient Attender: Darrel Hernandez Jr [place] [facility] 01:15:00 PM EDT MEDENT ([facility] Outpatient Attender: Dianne HERNANDEZ [place] [facility] 10/10/2019 11:00:00 AM EDT MEDENT ([facility] 10/08/2019 12:45:00 PM EDT - 020 12:45:00 PM EDT NextGen ([facility]) Outpatient Attender: Dianne HERNANDEZ [place] [facility] 10/03/2019 09:40:00 AM EST MEDENT ([facility] [address] [place], [place] [id number] 09/28/2019 12:00:00 AM EST eCW1 [facility] Outpatient Attender: Darrel Hernandez Jr [place] [facility] 10:30:00 AM EST MEDENT ([facility] Outpatient Attender: Maximo HERNANDEZ [place] [facility] 05/2020 02:15:00 PM EST MEDENT ([facility] [address] [place] [address] 09/05/2019 12:00:00 AM EST eCW1 ([facility]) Outpatient Attender: Maximo HERNANDEZ [place] [facility] 08:30:00 AM EST MEDENT ([facility] [address] [place] [address] 08/27/2019 12:00:00 AM EST eCW1 ([facility]) Outpatient Attender: RIGOBERTO NAVARRETE [id number]: BENJAMIN APARICIO [id number] 08/17/2019 12:00:00 AM EST - 08/17/2019 05:18:33 PM EST Glomerular disease in systemic lupus erythematosus [facility] 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 Outpatient Attender: Maximo HERNANDEZ [place] [facility] 09/2019 12:00:00 PM EST MEDENT ([facility] Outpatient Attender: Dianne HERNANDEZ [facility] 07/27/2019 02:45:00 PM EST MEDENT ([facility] Outpatient Attender: Dianne HERNANDEZ [facility] [facility] 07/19/2019 02:15:00 PM EST MEDENT ([facility] Outpatient Attender: MANISHA RIGGINS MD [facility] 07/16/2019 0 1:09:00 PM [facility] Outpatient Referrer: CHAZ ROBLES MD 07/15/2019 06:24:00 P M EST [facility] Outpatient Attender: MANISHA RIGGINS MD ER-MOB 07/02/2019 03:07:0 0 PM [facility] Outpatient Attender: [id number] Benjamin Aparicio MD [facility] 07/02/2019 12:44:00 PM EST - 07/02/2019 12:45:00 PM [facility] Patient discharged. Outpatient Attender: Darrel Hernandez Jr [place] [facility] 01:00:00 PM EST MEDENT ([facility] Outpatient Attender: Maximo HERNANDEZ [place] [facility] 09:00:00 AM EST MEDENT ([facility] Outpatient Attender: [id number] Benjamin Aparicio MD [facility] 06/04/2019 01:05:00 PM EST - 06/04/2019 01:06:00 PM [facility] Patient discharged. Outpatient Attender: MANISHA RIGGINS MD [facility] 03/19/2019 0 1:41:00 PM [facility] Outpatient Attender: OTHER PHYSICIAN 02/26/2019 11:24:00 A M [facility] Outpatient Attender: MANISHA RIGGINS MD [facility] 02/12/2019 0 2:51:00 PM [facility] Outpatient Attender: MANISHA RIGGINS MDAttender: FRANK OCAMPO MD [facility] 02/02/2019 01:22:00 PM [facility] Medications Medication Brand Name Start [...] Azelastine hydrochloride 0.206 MG/ACTUAT Metered Dose Nasal [place] 0.15 % (205.5 mcg) AZELASTINE HCL 07/23/2020 [...] 1 drop, Both Eyes, Once, [facility] 04/17/20 at 1330, For 1 dose [facility] Medication administered onsite Phenylephrine Hydrochloride 25 MG/ML Oph thalmic Solution phenylephrine (MYDFRIN) 2.5 % ophthalmic solution 1 drop phenylephrine (MYDFRIN) 2.5 % ophthalmic solution 1 drop 04/17/2020 01:30:00 PM EDT 1 [drp] Both Eyes completed 1 drop, Both Eyes, Once, [facility] 04/17/20 at 1330, For 1 do [facility] Medication administered onsite Proparacaine hydrochloride 5 MG/ML Ophth almic Solution proparacaine (ALCAINE) 0.5 % ophthalmic solution 1 drop proparacaine (ALCAINE) 0.5 % ophthalmic solution 1 drop 04/17/2020 01:30:00 PM EDT 1 [drp] Both Eyes completed 1 drop, Both Eyes, Once, Regi 04/17/20 at 1330, For 1 do [facility] Medication administered onsite Baclofen 10 MG Oral Tablet Baclofen 04/04/2020 12:00:00 AM EDT ORAL active MEDENT ([facility] 10 mg 04/04/2020 12:00:00 [...] Kit 03/21/2020 12:00:00 AM EDT active MEDENT ([facility], ) Magnesium Hydroxide 80 MG/ML Oral Suspension Milk Of Magnesi a 03/21/2020 12:00:00 AM EDT ORAL active M EDENT ([facility], ) 60 mg 03/21/2020 12:00:00 AM EDT [...] completed MEDENT ([facility]) Potassium Chloride 10 MEQ Extended Release Oral [...] MCG/ ACT Inhalation Aerosol Solution (PROVENTIL HFA) 7809-5006-41 01/14/2020 12:00:00 AM EDT [facility] 60 ACTUAT Budesonide 0.08 MG/ACTUAT / fo rmoterol fumarate 0.0045 MG/ACTUAT Metered Dose Inhaler [Symbicort] Symbicort 01/08/2020 12:00:00 AM EDT RESPIRATORY active MEDENT ( [facility]) Fluticasone Propionate Fluticasone Propionate 01/08/2020 12:00:00 AM E DT completed MEDENT ([facility]) 50 mcg/actuation 01/08/2020 12:00:00 AM EDT spray,suspension 48 SPRAY 2 SPRAYS [100MCG] IN EACH NOSTRIL ONCE DAILY IN THE EVENING SPRAY 2 SPRAYS [100MCG] IN EACH NOSTRIL ONCE DAILY IN THE EVENING SOLD: 01/08/2020 [facility] dexlansoprazole 60 MG Delayed Release Oral Capsule [...] 11/01/2019 12:00:00 AM EDT ORAL active MEDENT ([facility]) 500 mg 11/01/2019 12:00:00 [...] Xanax 10/22/2019 12:00:00 AM EDT active MEDENT ([facility]) 25 mcg (1,000 unit) [...] 12:00 :00 AM EDT ORAL active MEDENT ([facility] Baclofen 5 MG Oral Tablet Baclofen 10/03/2019 12:00:00 AM EST completed [facility] 40 mg 10/01/2019 12:00:00 AM [...] 12:00:00 AM EST ORAL active M EDENT ([facility] 5 mg 09/21/2019 12:00:00 [...] 08/28/2019 12:00:00 AM EST ORAL active MEDENT ([facility] ) duloxetine 30 MG [...] ) fluorescein 10 % injection 500 mg [id number] 08/17/2019 04:00:[address] 500 mg Intravenous completed Visual field def ect of left eyeHigh risk medication useOther systemic lupus erythematosus with glomerular disease 500 mg (5 mL), Intravenous, Once, Tue08/17/19 at 1600, For 1 dose [facility] Visual field defect of left eye High risk medication use Other systemic lupus erythematosus with glomerular disease Medication administered onsite Tropicamide 10 MG/ML Ophthalmic Solution tropicamide (MYDRIACYL) 1 % ophthalmic solution 1 drop tropicamide (MYDRIACYL) 1 % ophthalmic solution 1 drop 08/17/2019 03:45:00 PM EST 1 [drp] Both Eyes completed 1 drop, Both Eyes, Once, Tue08/17/19 at 1545, For 1 dose [facility] Medication administered onsite Phenylephrine Hydrochloride 25 MG/ML Oph thalmic Solution phenylephrine (MYDFRIN) 2.5 % ophthalmic solution 1 drop phenylephrine (MYDFRIN) 2.5 % ophthalmic solution 1 drop 08/17/2019 03:45:00 PM EST 1 [drp] Both Eyes completed 1 drop, Both Eyes, Once, Tue08/17/19 at 1545, For 1 do se [facility] Medication administered onsite fluorescein-benoxinate (FLURATE) 0.25-0.4 % ophthalmic solution 1 drop 23419-055-47 08/17/2019 03:45:00 PM EST 1 [drp] Both Eyes c ompleted 1 drop, Both Eyes, Once, Tue08/17/19 at 1545, For 1 dose [facility] Medication administered onsite 5 mg 08/06/2019 [...] MOUTH DAILY SOLD: 07/20/2019 [facility] Nystatin 900419 UNT/ML Topical Cream Nys tatin 764734 UNIT/GM External Cream (MYCOSTATIN) Nystatin 733246 UNIT/GM External Cream (MYCOSTATIN) 12:00:00 AM EST active APPLY TO AFFECTED AREA S TWO TIMES A DAY UNTIL RASH RESOLVES [facility] 100,000 unit/gram 07/16/2019 12:00:00 AM EST [...] 06/29/2019 12:00:00 AM EST ORAL completed MEDENT ([facility] Hydrochlorothiazide 12.5 MG / Lisinopril 10 MG Oral Ta blet Lisinopril-Hydrochlorothiazide 06/14/2019 12:00:00 AM EST OR AL completed MEDENT ([facility] 2.5 mg 05/14/2019 12:00:00 AM [...] 04/30/2019 12:00:00 AM EDT ORAL completed MEDENT ([facility] 5 mg 04/26/2019 12:00:00 AM [...] DAY WITH FOOD OR MILK SOLD: 10/18/2019 [facility] Hydroxychloroquine Sulfate 200 MG Oral [...] duloxetine 30 MG Delayed Release Oral Capsule [facility]) Nystatin 441952 UNT/ML Topical Cream nystatin 100,000 unit/gram topical cream nystatin 100,000 unit/gram topical cream completed nystatin 332594 UNT/ML Topical Cream [facility]) zonisamide 50 MG Oral Capsule zonisamide 50 mg capsule zonis amide 50 mg capsule completed zonisamide 50 MG Oral Capsule THAD ([facility]) Prednisone 10 MG Oral Tablet prednisone 10 mg tablet prednisone 10 mg tablet completed prednisone 10 MG Oral Tablet THAD ([facility]) Prednisone 2.5 MG Oral Tablet prednisone 2.5 mg tablet predn isone 2.5 mg tablet completed prednisone 2.5 MG Oral Tablet THAD ([facility]) zonisamide 25 MG Oral Capsule zonisamide 25 mg capsule zonis amide 25 mg capsule completed zonisamide 25 MG Oral Capsule [facility] ([facility]) zonisamide 50 MG Oral Capsule zonisamide 50 mg capsule zonis amide 50 mg capsule completed zonisamide 50 MG Oral Capsule [place] ([facility]) duloxetine 30 MG Delayed Release Oral Ca psule duloxetine 30 mg capsule,delayed release duloxetine 30 mg capsule,delayed release completed duloxetine 30 MG Delayed Release Oral Capsule [place] ([facility]) zonisamide 50 MG Oral Capsule zonisamide 50 mg capsule zonis amide 50 mg capsule completed zonisamide 50 MG Oral Capsule [place] ([facility]) Baclofen 5 MG Oral Tablet baclofen 5 mg tablet baclofen 5 mg tablet completed baclofen 5 MG Oral Tablet [place] ([facility]) Benlysta 200 mg/mL subcutaneous auto-injector [id number] completed 1 ML belimumab 200 MG/ML Auto-Injector [Benlysta] [place] ([facility]) Suprep Bowel Prep Kit 17.5 gram-3.13 gram-1.6 gram oral solution 03864 5 completed Suprep Bowel Pr ep Kit 17.5 gram-3.13 gram-1.6 gram oral solution [place] ([facility]) Baclofen 10 MG Oral Tablet baclofen 10 mg tablet baclofen 10 mg tablet completed baclofen 10 MG Oral Table t [place] ([facility]) Citalopram 20 MG Oral Tablet citalopram 20 mg tablet citalopram 20 mg tablet completed citalopram 20 MG Oral Tablet [place] ([facility]) Alprazolam 0.5 MG Oral Tablet alprazolam 0.5 mg tablet alpra zolam 0.5 mg tablet completed alprazolam 0.5 MG Oral Tablet [place] ([facility]) Prednisone 10 MG Oral Tablet prednisone 10 mg tablet prednisone 10 mg tablet completed prednisone 10 MG Oral Tablet [place] ([facility]) Amoxicillin 500 MG Oral Capsule amoxicillin 500 mg cap sara amoxicillin 500 mg capsule completed amoxicillin 50 0 MG Oral Capsule [place] ([facility]) zonisamide 50 MG Oral Capsule zonisamide 50 mg capsule zonis amide 50 mg capsule completed zonisamide 50 MG Oral Capsule [place] ([facility]) Suprep Bowel Prep Kit 17.5 gram-3.13 gram-1.6 gram oral solution 30613 5 completed Suprep Bowel Pr ep Kit 17.5 gram-3.13 gram-1.6 gram oral solution [facility]) Alprazolam 0.5 MG Oral Tablet alprazolam 0.5 mg tablet alpra zolam 0.5 mg tablet completed alprazolam 0.5 MG Oral Tablet [place] ([facility]) Amoxicillin 500 MG Oral Capsule amoxicillin 500 mg cap sara amoxicillin 500 mg capsule completed amoxicillin 50 0 MG Oral Capsule [facility] ([facility]) mycophenolate mofetil 500 MG Oral Tablet [Cellcept] Ce llCept 500 mg tablet CellCept 500 mg tablet completed mycophenolate mofetil 500 MG Oral Tablet [Cellcept] [facility]) Cephalexin 500 MG Oral Capsule cephalexin 500 mg capsu le cephalexin 500 mg capsule completed cephalexin 500 MG Oral Capsule THAD ([facility]) Baclofen 10 MG Oral Tablet baclofen 10 mg tablet baclofen 10 mg tablet completed baclofen 10 MG Oral Table t [facility]AD ([facility]) Cephalexin 500 MG Oral Capsule cephalexin 500 mg capsu le cephalexin 500 mg capsule completed cephalexin 500 MG Oral Capsule [facility] ([facility]) Alprazolam 0.5 MG Oral Tablet alprazolam 0.5 mg tablet alpra zolam 0.5 mg tablet completed alprazolam 0.5 MG Oral Tablet THAD ([facility]) Alprazolam 0.5 MG Oral Tablet alprazolam 0.5 mg tablet alpra zolam 0.5 mg tablet completed alprazolam 0.5 MG Oral Tablet THAD ([facility]) Hydrochlorothiazide 12.5 MG / Lisinopril 10 MG Oral Tablet lisinopril 10 mg- hydrochlorothiazide 12.5 mg tablet lisinopril 10 mg-hydrochlorothiazide 12. 5 mg tablet completed hydroch lorothiazide 12.5 MG / lisinopril 10 MG Oral Tablet THAD ([facility]) zonisamide 25 MG Oral Capsule zonisamide 25 mg capsule zonis amide 25 mg capsule completed zonisamide 25 MG Oral Capsule THAD ([facility]) mycophenolate mofetil 500 MG Oral Tablet [Cellcept] Ce llCept 500 mg tablet CellCept 500 mg tablet completed mycophenolate mofetil 500 MG Oral Tablet [Cellcept] THAD ([facility]) Prednisone 10 MG Oral Tablet prednisone 10 mg tablet prednisone 10 mg tablet completed prednisone 10 MG Oral Tablet [place] ([facility]) Benlysta 200 mg/mL subcutaneous auto-injector [id number] completed 1 ML belimumab 200 MG/ML Auto-Injector [Benlysta] [place] ([facility]) Alprazolam 0.5 MG Oral Tablet alprazolam 0.5 mg tablet alpra zolam 0.5 mg tablet completed alprazolam 0.5 MG Oral Tablet [place] ([facility]) mycophenolate mofetil 500 MG Oral Tablet [Cellcept] Ce llCept 500 mg tablet CellCept 500 mg tablet completed mycophenolate mofetil 500 MG Oral Tablet [Cellcept] [facility]) Hydrochlorothiazide 12.5 MG / Lisinopril 10 MG Oral Tablet lisinopril 10 mg- hydrochlorothiazide 12.5 mg tablet lisinopril 10 mg-hydrochlorothiazide 12. 5 mg tablet completed hydroch lorothiazide 12.5 MG / lisinopril 10 MG Oral Tablet [facility]) duloxetine 30 MG Delayed Release Oral Ca psule duloxetine 30 mg capsule,delayed release duloxetine 30 mg capsule,delayed release completed duloxetine 30 MG Delayed Release Oral Capsule [facility]) Baclofen 5 MG Oral Tablet baclofen 5 mg tablet baclofen 5 mg tablet completed baclofen 5 MG Oral Tablet [facility]) Baclofen 10 MG Oral Tablet baclofen 10 mg tablet baclofen 10 mg tablet completed baclofen 10 MG Oral Table t [facility]) Amoxicillin 500 MG Oral Capsule amoxicillin 500 mg cap sara amoxicillin 500 mg capsule completed amoxicillin 50 0 MG Oral Capsule [place] ([facility]) Amoxicillin 500 MG Oral Capsule amoxicillin 500 mg cap sara amoxicillin 500 mg capsule completed amoxicillin 50 0 MG Oral Capsule [place] ([facility]) Citalopram 20 MG Oral Tablet citalopram 20 mg tablet citalopram 20 mg tablet completed citalopram 20 MG Oral Tablet [facility]) Hydrochlorothiazide 12.5 MG / Lisinopril 10 MG Oral Tablet lisinopril 10 mg- hydrochlorothiazide 12.5 mg tablet lisinopril 10 mg-hydrochlorothiazide 12. 5 mg tablet completed hydroch lorothiazide 12.5 MG / lisinopril 10 MG Oral Tablet THAD ([facility]) zonisamide 25 MG Oral Capsule zonisamide 25 mg capsule zonis amide 25 mg capsule completed zonisamide 25 MG Oral Capsule [place] ([facility]) Citalopram 20 MG Oral Tablet citalopram 20 mg tablet citalopram 20 mg tablet completed citalopram 20 MG Oral Tablet THAD ([facility]) Baclofen 5 MG Oral Tablet baclofen 5 mg tablet baclofen 5 mg tablet completed baclofen 5 MG Oral Tablet THAD ([facility]) Prednisone 5 MG Oral Tablet prednisone 5 mg tablet prednisone 5 mg ta blet completed prednisone 5 MG Oral Tablet [place] ([facility]) duloxetine 30 MG Delayed Release Oral Ca psule duloxetine 30 mg capsule,delayed release duloxetine 30 mg capsule,delayed release completed duloxetine 30 MG Delayed Release Oral Capsule [place] ([facility]) Hydrochlorothiazide 12.5 MG / Lisinopril 10 MG Oral Tablet lisinopril 10 mg- hydrochlorothiazide 12.5 mg tablet lisinopril 10 mg-hydrochlorothiazide 12. 5 mg tablet completed hydroch lorothiazide 12.5 MG / lisinopril 10 MG Oral Tablet [place] ([facility]) Baclofen 10 MG Oral Tablet baclofen 10 mg tablet baclofen 10 mg tablet completed baclofen 10 MG Oral Table t [place] ([facility]) Prednisone 10 MG Oral Tablet prednisone 10 mg tablet prednisone 10 mg tablet completed prednisone 10 MG Oral Tablet [place] ([facility]) duloxetine 30 MG Delayed Release Oral Ca psule duloxetine 30 mg capsule,delayed release duloxetine 30 mg capsule,delayed release completed duloxetine 30 MG Delayed Release Oral Capsule [place] ([facility]) zonisamide 25 MG Oral Capsule zonisamide 25 mg capsule zonis amide 25 mg capsule completed zonisamide 25 MG Oral Capsule [place] ([facility]) Nystatin [id number] UNT/ML Topical Cream nystatin 100,000 unit/gram topical cream nystatin 100,000 unit/gram topical cream completed nystatin [id number] UNT/ML Topical Cream [place] ([facility]) Baclofen 10 MG Oral Tablet baclofen 10 mg tablet baclofen 10 mg tablet completed baclofen 10 MG Oral Table t [facility]AD ([facility]) zonisamide 25 MG Oral Capsule zonisamide 25 mg capsule zonis amide 25 mg capsule completed zonisamide 25 MG Oral Capsule [place] ([facility]) Cephalexin 500 MG Oral Capsule cephalexin 500 mg capsu le cephalexin 500 mg capsule completed cephalexin 500 MG Oral Capsule [place] ([facility]) Citalopram 20 MG Oral Tablet citalopram 20 mg tablet citalopram 20 mg tablet completed citalopram 20 MG Oral Tablet [place] ([facility]) Prednisone 10 MG Oral Tablet prednisone 10 mg tablet prednisone 10 mg tablet completed prednisone 10 MG Oral Tablet [facility]) pantoprazole 40 MG Delayed Release Oral Tablet pantoprazole 40 mg tablet,delayed release pantoprazole 40 mg tablet,delayed release completed pantoprazole 40 MG Delayed Release Oral Tablet [place] ([facility]) Prednisone 10 MG Oral Tablet prednisone 10 mg tablet prednisone 10 mg tablet completed prednisone 10 MG Oral Tablet [place] ([facility]) Prednisone 5 MG Oral Tablet prednisone 5 mg tablet prednisone 5 mg ta blet completed prednisone 5 MG Oral Tablet [place] ([facility]) Suprep Bowel Prep Kit 17.5 gram-3.13 gram-1.6 gram oral solution 20020 5 completed Suprep Bowel Pr ep Kit 17.5 gram-3.13 gram-1.6 gram oral solution [facility]) duloxetine 30 MG Delayed Release Oral Ca psule duloxetine 30 mg capsule,delayed release duloxetine 30 mg capsule,delayed release completed duloxetine 30 MG Delayed Release Oral Capsule [facility]) Prednisone 5 MG Oral Tablet prednisone 5 mg tablet prednisone 5 mg ta blet completed prednisone 5 MG Oral Tablet [place] ([facility]) Amoxicillin 500 MG Oral Capsule amoxicillin 500 mg cap sara amoxicillin 500 mg capsule completed amoxicillin 50 0 MG Oral Capsule [facility]) pantoprazole 40 MG Delayed Release Oral Tablet pantoprazole 40 mg tablet,delayed release pantoprazole 40 mg tablet,delayed release completed pantoprazole 40 MG Delayed Release Oral Tablet [place] ([facility]) Suprep Bowel Prep Kit 17.5 gram-3.13 gram-1.6 gram oral solution [id number] 5 completed Suprep Bowel Pr ep Kit 17.5 gram-3.13 gram-1.6 gram oral solution THAD ([facility]) Nystatin [id number] UNT/ML Topical Cream nystatin 100,000 unit/gram topical cream nystatin 100,000 unit/gram topical cream completed nystatin [id number] UNT/ML Topical Cream THAD ([facility]) Baclofen 10 MG Oral Tablet baclofen 10 mg tablet baclofen 10 mg tablet completed baclofen 10 MG Oral Table t [facility]AD ([facility]) Benlysta 200 mg/mL subcutaneous auto-injector [id number] completed 1 ML belimumab 200 MG/ML Auto-Injector [Benlysta] [place] ([facility]) Hydrochlorothiazide 12.5 MG / Lisinopril 10 MG Oral Tablet lisinopril 10 mg- hydrochlorothiazide 12.5 mg tablet lisinopril 10 mg-hydrochlorothiazide 12. 5 mg tablet completed hydroch lorothiazide 12.5 MG / lisinopril 10 MG Oral Tablet [facility] ([facility]) Amoxicillin 500 MG Oral Capsule amoxicillin 500 mg cap sara amoxicillin 500 mg capsule completed amoxicillin 50 0 MG Oral Capsule [place] ([facility]) Citalopram 20 MG Oral Tablet citalopram 20 mg tablet citalopram 20 mg tablet completed citalopram 20 MG Oral Tablet [place] ([facility]) Hydrochlorothiazide 12.5 MG / Lisinopril 10 MG Oral Tablet lisinopril 10 mg- hydrochlorothiazide 12.5 mg tablet lisinopril 10 mg-hydrochlorothiazide 12. 5 mg tablet completed hydroch lorothiazide 12.5 MG / lisinopril 10 MG Oral Tablet [facility] ([facility]) mycophenolate mofetil 500 MG Oral Tablet [Cellcept] Ce llCept 500 mg tablet CellCept 500 mg tablet completed mycophenolate mofetil 500 MG Oral Tablet [Cellcept] THAD ([facility]) Nystatin 559301 UNT/ML Topical Cream nystatin 100,000 unit/gram topical cream nystatin 100,000 unit/gram topical cream completed nystatin 193355 UNT/ML Topical Cream [facility]AD ([facility]) Hydrochlorothiazide 12.5 MG / Lisinopril 10 MG Oral Tablet lisinopril 10 mg- hydrochlorothiazide 12.5 mg tablet lisinopril 10 mg-hydrochlorothiazide 12. 5 mg tablet completed hydroch lorothiazide 12.5 MG / lisinopril 10 MG Oral Tablet [facility] ([facility]) zonisamide 50 MG Oral Capsule zonisamide 50 mg capsule zonis amide 50 mg capsule completed zonisamide 50 MG Oral Capsule [facility] ([facility]) Benlysta 200 mg/mL subcutaneous auto-injector [id number] completed 1 ML belimumab 200 MG/ML Auto-Injector [Benlysta] [place] ([facility]) Suprep Bowel Prep Kit 17.5 gram-3.13 gram-1.6 gram oral solution 36716 5 completed Suprep Bowel Pr ep Kit 17.5 gram-3.13 gram-1.6 gram oral solution THAD ([facility]) Prednisone 2.5 MG Oral Tablet prednisone 2.5 mg tablet predn isone 2.5 mg tablet completed prednisone 2.5 MG Oral Tablet [place] ([facility]) zonisamide 50 MG Oral Capsule zonisamide 50 mg capsule zonis amide 50 mg capsule completed zonisamide 50 MG Oral Capsule [place] ([facility]) Suprep Bowel Prep Kit 17.5 gram-3.13 gram-1.6 gram oral solution 31762 5 completed Suprep Bowel Pr ep Kit 17.5 gram-3.13 gram-1.6 gram oral solution [place]AD ([facility]) Suprep Bowel Prep Kit 17.5 gram-3.13 gram-1.6 gram oral solution [id number] 5 completed Suprep Bowel Pr ep Kit 17.5 gram-3.13 gram-1.6 gram oral solution THAD ([facility]) Suprep Bowel Prep Kit 17.5 gram-3.13 gram-1.6 gram oral solution 44560 5 completed Suprep Bowel Pr ep Kit 17.5 gram-3.13 gram-1.6 gram oral solution THAD ([facility]) zonisamide 50 MG Oral Capsule zonisamide 50 mg capsule zonis amide 50 mg capsule completed zonisamide 50 MG Oral Capsule [place] ([facility]) Cephalexin 500 MG Oral Capsule cephalexin 500 mg capsu le cephalexin 500 mg capsule completed cephalexin 500 MG Oral Capsule [place] ([facility]) Nystatin 218036 UNT/ML Topical Cream nystatin 100,000 unit/gram topical cream nystatin 100,000 unit/gram topical cream completed nystatin 132993 UNT/ML Topical Cream THAD ([facility]) mycophenolate mofetil 500 MG Oral Tablet [Cellcept] Ce llCept 500 mg tablet CellCept 500 mg tablet completed mycophenolate mofetil 500 MG Oral Tablet [Cellcept] THAD ([facility]) Amoxicillin 500 MG Oral Capsule amoxicillin 500 mg cap sara amoxicillin 500 mg capsule completed amoxicillin 50 0 MG Oral Capsule [facility]AD ([facility]) zonisamide 25 MG Oral Capsule zonisamide 25 mg capsule zonis amide 25 mg capsule completed zonisamide 25 MG Oral Capsule [facility]AD ([facility]) mycophenolate mofetil 500 MG Oral Tablet [Cellcept] Ce llCept 500 mg tablet CellCept 500 mg tablet completed mycophenolate mofetil 500 MG Oral Tablet [Cellcept] THAD ([facility]) Prednisone 5 MG Oral Tablet prednisone 5 mg tablet prednisone 5 mg ta blet completed prednisone 5 MG Oral Tablet [facility] ([facility]) Prednisone 2.5 MG Oral Tablet prednisone 2.5 mg tablet predn isone 2.5 mg tablet completed prednisone 2.5 MG Oral Tablet [place] ([facility]) zonisamide 25 MG Oral Capsule zonisamide 25 mg capsule zonis amide 25 mg capsule completed zonisamide 25 MG Oral Capsule [place] ([facility]) Cephalexin 500 MG Oral Capsule cephalexin 500 mg capsu le cephalexin 500 mg capsule completed cephalexin 500 MG Oral Capsule THAD ([facility]) mycophenolate mofetil 500 MG Oral Tablet [Cellcept] Ce llCept 500 mg tablet CellCept 500 mg tablet completed mycophenolate mofetil 500 MG Oral Tablet [Cellcept] THAD ([facility]) Citalopram 20 MG Oral Tablet citalopram 20 mg tablet citalopram 20 mg tablet completed citalopram 20 MG Oral Tablet THAD ([facility]) zonisamide 50 MG Oral Capsule zonisamide 50 mg capsule zonis amide 50 mg capsule completed zonisamide 50 MG Oral Capsule [facility] ([facility]) zonisamide 25 MG Oral Capsule zonisamide 25 mg capsule zonis amide 25 mg capsule completed zonisamide 25 MG Oral Capsule THAD ([facility]) Baclofen 10 MG Oral Tablet baclofen 10 mg tablet baclofen 10 mg tablet completed baclofen 10 MG Oral Table t THAD ([facility]) Cephalexin 500 MG Oral Capsule cephalexin 500 mg capsu le cephalexin 500 mg capsule completed cephalexin 500 MG Oral Capsule THAD ([facility]) Suprep Bowel Prep Kit 17.5 gram-3.13 gram-1.6 gram oral solution [id number] 5 completed Suprep Bowel Pr ep Kit 17.5 gram-3.13 gram-1.6 gram oral solution THAD ([facility]) Baclofen 5 MG Oral Tablet baclofen 5 mg tablet baclofen 5 mg tablet completed baclofen 5 MG Oral Tablet [place] ([facility]) Baclofen 5 MG Oral Tablet baclofen 5 mg tablet baclofen 5 mg tablet completed baclofen 5 MG Oral Tablet [place] ([facility]) Prednisone 10 MG Oral Tablet prednisone 10 mg tablet prednisone 10 mg tablet completed prednisone 10 MG Oral Tablet [facility]AD ([facility]) Cephalexin 500 MG Oral Capsule cephalexin 500 mg capsu le cephalexin 500 mg capsule completed cephalexin 500 MG Oral Capsule [place] ([facility]) mycophenolate mofetil 500 MG Oral Tablet [Cellcept] Ce llCept 500 mg tablet CellCept 500 mg tablet completed mycophenolate mofetil 500 MG Oral Tablet [Cellcept] [place] ([facility]) pantoprazole 40 MG Delayed Release Oral Tablet pantoprazole 40 mg tablet,delayed release pantoprazole 40 mg tablet,delayed release completed pantoprazole 40 MG Delayed Release Oral Tablet [place] ([facility]) Prednisone 2.5 MG Oral Tablet prednisone 2.5 mg tablet predn isone 2.5 mg tablet completed prednisone 2.5 MG Oral Tablet [place] ([facility]) zonisamide 50 MG Oral Capsule zonisamide 50 mg capsule zonis amide 50 mg capsule completed zonisamide 50 MG Oral Capsule [place] ([facility]) mycophenolate mofetil 500 MG Oral Tablet [Cellcept] Ce llCept 500 mg tablet CellCept 500 mg tablet completed mycophenolate mofetil 500 MG Oral Tablet [Cellcept] [facility]AD ([facility]) Benlysta 200 mg/mL subcutaneous auto-injector [id number] completed 1 ML belimumab 200 MG/ML Auto-Injector [Benlysta] [place] ([facility]) Hydrochlorothiazide 12.5 MG / Lisinopril 10 MG Oral Tablet lisinopril 10 mg- hydrochlorothiazide 12.5 mg tablet lisinopril 10 mg-hydrochlorothiazide 12. 5 mg tablet completed hydroch lorothiazide 12.5 MG / lisinopril 10 MG Oral Tablet [place] ([facility]) Baclofen 5 MG Oral Tablet baclofen 5 mg tablet baclofen 5 mg tablet completed baclofen 5 MG Oral Tablet [place] ([facility]) pantoprazole 40 MG Delayed Release Oral Tablet pantoprazole 40 mg tablet,delayed release pantoprazole 40 mg tablet,delayed release completed pantoprazole 40 MG Delayed Release Oral Tablet [place] ([facility]) duloxetine 30 MG Delayed Release Oral Ca psule duloxetine 30 mg capsule,delayed release duloxetine 30 mg capsule,delayed release completed duloxetine 30 MG Delayed Release Oral Capsule [place] ([facility]) Prednisone 2.5 MG Oral Tablet prednisone 2.5 mg tablet predn isone 2.5 mg tablet completed prednisone 2.5 MG Oral Tablet [place] ([facility]) pantoprazole 40 MG Delayed Release Oral Tablet pantoprazole 40 mg tablet,delayed release pantoprazole 40 mg tablet,delayed release completed pantoprazole 40 MG Delayed Release Oral Tablet [place] ([facility]) Prednisone 2.5 MG Oral Tablet prednisone 2.5 mg tablet predn isone 2.5 mg tablet completed prednisone 2.5 MG Oral Tablet [facility] ([facility]) Nystatin [id number] UNT/ML Topical Cream nystatin 100,000 unit/gram topical cream nystatin 100,000 unit/gram topical cream completed nystatin 115293 UNT/ML Topical Cream [place] ([facility]) Cephalexin 500 MG Oral Capsule cephalexin 500 mg capsu le cephalexin 500 mg capsule completed cephalexin 500 MG Oral Capsule [place] ([facility]) Prednisone 2.5 MG Oral Tablet prednisone 2.5 mg tablet predn isone 2.5 mg tablet completed prednisone 2.5 MG Oral Tablet [place] ([facility]) duloxetine 30 MG Delayed Release Oral Ca psule duloxetine 30 mg capsule,delayed release duloxetine 30 mg capsule,delayed release completed duloxetine 30 MG Delayed Release Oral Capsule [place] ([facility]) Alprazolam 0.5 MG Oral Tablet alprazolam 0.5 mg tablet alpra zolam 0.5 mg tablet completed alprazolam 0.5 MG Oral Tablet [place] ([facility]) zonisamide 25 MG Oral Capsule zonisamide 25 mg capsule zonis amide 25 mg capsule completed zonisamide 25 MG Oral Capsule [place] ([facility]) Alprazolam 0.5 MG Oral Tablet alprazolam 0.5 mg tablet alpra zolam 0.5 mg tablet completed alprazolam 0.5 MG Oral Tablet [place] ([facility]) Amoxicillin 500 MG Oral Capsule amoxicillin 500 mg cap sara amoxicillin 500 mg capsule completed amoxicillin 50 0 MG Oral Capsule [place] ([facility]) Prednisone 2.5 MG Oral Tablet prednisone 2.5 mg tablet predn isone 2.5 mg tablet completed prednisone 2.5 MG Oral Tablet [place] ([facility]) Cephalexin 500 MG Oral Capsule cephalexin 500 mg capsu le cephalexin 500 mg capsule completed cephalexin 500 MG Oral Capsule [place] ([facility]) Prednisone 10 MG Oral Tablet prednisone 10 mg tablet prednisone 10 mg tablet completed prednisone 10 MG Oral Tablet [place] ([facility]) Citalopram 20 MG Oral Tablet citalopram 20 mg tablet citalopram 20 mg tablet completed citalopram 20 MG Oral Tablet [place] ([facility]) Suprep Bowel Prep Kit 17.5 gram-3.13 gram-1.6 gram oral solution 78512 5 completed Suprep Bowel Pr ep Kit 17.5 gram-3.13 gram-1.6 gram oral solution [place] ([facility]) Citalopram 20 MG Oral Tablet citalopram 20 mg tablet citalopram 20 mg tablet completed citalopram 20 MG Oral Tablet [place] ([facility]) Baclofen 10 MG Oral Tablet baclofen 10 mg tablet baclofen 10 mg tablet completed baclofen 10 MG Oral Table t [place] ([facility]) pantoprazole 40 MG Delayed Release Oral Tablet pantoprazole 40 mg tablet,delayed release pantoprazole 40 mg tablet,delayed release completed pantoprazole 40 MG Delayed Release Oral Tablet [facility] ([facility]) Nystatin [id number] UNT/ML Topical Cream nystatin 100,000 unit/gram topical cream nystatin 100,000 unit/gram topical cream completed nystatin 263519 UNT/ML Topical Cream THAD ([facility]) Prednisone 5 MG Oral Tablet prednisone 5 mg tablet prednisone 5 mg ta blet completed prednisone 5 MG Oral Tablet [facility] ([facility]) Amoxicillin 500 MG Oral Capsule amoxicillin 500 mg cap sara amoxicillin 500 mg capsule completed amoxicillin 50 0 MG Oral Capsule [facility] ([facility]) Prednisone 10 MG Oral Tablet prednisone 10 mg tablet prednisone 10 mg tablet completed prednisone 10 MG Oral Tablet [facility] ([facility]) Nystatin 144460 UNT/ML Topical Cream nystatin 100,000 unit/gram topical cream nystatin 100,000 unit/gram topical cream completed nystatin 427843 UNT/ML Topical Cream THAD ([facility]) pantoprazole 40 MG Delayed Release Oral Tablet pantoprazole 40 mg tablet,delayed release pantoprazole 40 mg tablet,delayed release completed pantoprazole 40 MG Delayed Release Oral Tablet [facility] ([facility]) Nystatin 429939 UNT/ML Topical Cream nystatin 100,000 unit/gram topical cream nystatin 100,000 unit/gram topical cream completed nystatin [id number] UNT/ML Topical Cream THAD ([facility]) Baclofen 10 MG Oral Tablet baclofen 10 mg tablet baclofen 10 mg tablet completed baclofen 10 MG Oral Table t [facility] ([facility]) Alprazolam 0.5 MG Oral Tablet alprazolam 0.5 mg tablet alpra zolam 0.5 mg tablet completed alprazolam 0.5 MG Oral Tablet [place] ([facility]) Baclofen 10 MG Oral Tablet baclofen 10 mg tablet baclofen 10 mg tablet completed baclofen 10 MG Oral Table t [facility] ([facility]) Nystatin [id number] UNT/ML Topical Cream nystatin 100,000 unit/gram topical cream nystatin 100,000 unit/gram topical cream completed nystatin 730684 UNT/ML Topical Cream THAD ([facility]) Prednisone 2.5 MG Oral Tablet prednisone 2.5 mg tablet predn isone 2.5 mg tablet completed prednisone 2.5 MG Oral Tablet [facility] ([facility]) Alprazolam 0.5 MG Oral Tablet alprazolam 0.5 mg tablet alpra zolam 0.5 mg tablet completed alprazolam 0.5 MG Oral Tablet [place] ([facility]) Prednisone 2.5 MG Oral Tablet prednisone 2.5 mg tablet predn isone 2.5 mg tablet completed prednisone 2.5 MG Oral Tablet [place] ([facility]) pantoprazole 40 MG Delayed Release Oral Tablet pantoprazole 40 mg tablet,delayed release pantoprazole 40 mg tablet,delayed release completed pantoprazole 40 MG Delayed Release Oral Tablet [facility] ([facility]) Cephalexin 500 MG Oral Capsule cephalexin 500 mg capsu le cephalexin 500 mg capsule completed cephalexin 500 MG Oral Capsule [facility] ([facility]) Citalopram 20 MG Oral Tablet citalopram 20 mg tablet citalopram 20 mg tablet completed citalopram 20 MG Oral Tablet [facility] ([facility]) Baclofen 5 MG Oral Tablet baclofen 5 mg tablet baclofen 5 mg tablet completed baclofen 5 MG Oral Tablet [facility] ([facility]) Amoxicillin 500 MG Oral Capsule amoxicillin 500 mg cap sara amoxicillin 500 mg capsule completed amoxicillin 50 0 MG Oral Capsule THAD ([facility]) Prednisone 10 MG Oral Tablet prednisone 10 mg tablet prednisone 10 mg tablet completed prednisone 10 MG Oral Tablet [facility] ([facility]) zonisamide 50 MG Oral Capsule zonisamide 50 mg capsule zonis amide 50 mg capsule completed zonisamide 50 MG Oral Capsule [facility] ([facility]) Hydrochlorothiazide 12.5 MG / Lisinopril 10 MG Oral Tablet lisinopril 10 mg- hydrochlorothiazide 12.5 mg tablet lisinopril 10 mg-hydrochlorothiazide 12. 5 mg tablet completed hydroch lorothiazide 12.5 MG / lisinopril 10 MG Oral Tablet [facility] ([facility]) Alprazolam 0.5 MG Oral Tablet alprazolam 0.5 mg tablet alpra zolam 0.5 mg tablet completed alprazolam 0.5 MG Oral Tablet [facility] ([facility]) Baclofen 5 MG Oral Tablet baclofen 5 mg tablet baclofen 5 mg tablet completed baclofen 5 MG Oral Tablet [facility] ([facility]) Baclofen 5 MG Oral Tablet baclofen 5 mg tablet baclofen 5 mg tablet completed baclofen 5 MG Oral Tablet [place] ([facility]) Hydrochlorothiazide 12.5 MG / Lisinopril 10 MG Oral Tablet lisinopril 10 mg- hydrochlorothiazide 12.5 mg tablet lisinopril 10 mg-hydrochlorothiazide 12. 5 mg tablet completed hydroch lorothiazide 12.5 MG / lisinopril 10 MG Oral Tablet [place] ([facility]) pantoprazole 40 MG Delayed Release Oral Tablet pantoprazole 40 mg tablet,delayed release pantoprazole 40 mg tablet,delayed release completed pantoprazole 40 MG Delayed Release Oral Tablet [place] ([facility]) Citalopram 20 MG Oral Tablet citalopram 20 mg tablet citalopram 20 mg tablet completed citalopram 20 MG Oral Tablet [place] ([facility]) Benlysta 200 mg/mL subcutaneous auto-injector [id number] completed 1 ML belimumab 200 MG/ML Auto-Injector [Benlysta] [place] ([facility]) mycophenolate mofetil 500 MG Oral Tablet [Cellcept] Ce llCept 500 mg tablet CellCept 500 mg tablet completed mycophenolate mofetil 500 MG Oral Tablet [Cellcept] [place] ([facility]) zonisamide 25 MG Oral Capsule zonisamide 25 mg capsule zonis amide 25 mg capsule completed zonisamide 25 MG Oral Capsule [place] ([facility]) Baclofen 5 MG Oral Tablet baclofen 5 mg tablet baclofen 5 mg tablet completed baclofen 5 MG Oral Tablet [place] ([facility]) Benlysta 200 mg/mL subcutaneous auto-injector [id number] completed 1 ML belimumab 200 MG/ML Auto-Injector [Benlysta] [place] ([facility]) Benlysta 200 mg/mL subcutaneous auto-injector [id number] completed 1 ML belimumab 200 MG/ML Auto-Injector [Benlysta] [facility]) Benlysta 200 mg/mL subcutaneous auto-injector [id number] completed 1 ML belimumab 200 MG/ML Auto-Injector [Benlysta] [facility]) pantoprazole 40 MG Delayed Release Oral Tablet pantoprazole 40 mg tablet,delayed release pantoprazole 40 mg tablet,delayed release completed pantoprazole 40 MG Delayed Release Oral Tablet [place] ([facility]) Benlysta 200 mg/mL subcutaneous auto-injector [id number] completed 1 ML belimumab 200 MG/ML Auto-Injector [Benlysta] [place] ([facility]) duloxetine 30 MG Delayed Release Oral Ca psule duloxetine 30 mg capsule,delayed release duloxetine 30 mg capsule,delayed release completed duloxetine 30 MG Delayed Release Oral Capsule [place] ([facility]) duloxetine 30 MG Delayed Release Oral Ca psule duloxetine 30 mg capsule,delayed release duloxetine 30 mg capsule,delayed release completed duloxetine 30 MG Delayed Release Oral Capsule [place] ([facility]) Insurance Providers Payer name Policy type / Coverage type Policy ID Covered alliance party ID Covered alliance party's relationship to dinero Policy Dinero Plan Information EMEDNY [id number] SP [id number] MEDICARE BLUE PPO 306 [id number] SP [id number] MEDICAID M [id number] S [id number] EXCELLUS BCBS B [id number] S [id number] MEDICAID [id number] S [id number] BLUE CROSS HMO [id number] S [id number] Excellus BCBS Medicare Advantage P [id number] S [id number] Medicaid S [id number] S [id number] BLUE CROSS MEDICARE ADVANTAGE [id number] Other [id number] MEDICAID [id number] Other [id number] MEDICAID M [id number] Self [id number] EXCELLUS MEDICARE BLUE PPO G [id number] Self [id number] BLUE CROSS BLUE SHIELD MCR -OP [id number] 18 [id number] BLUE CROSS BLUE SHIELD -O/P [id number] 18 [id number] MEDICAID -O/P EMERGENCY ROOM [id number] 18 [id number] MEDICAID -O/P EMERGENCY ROOM UNAVAILABLE UNAVAILABLE BLUE CROSS BLUE SHIELD -RECURRING [id number] 18 [id number] MEDICAID -RECURRING [id number] MEDICARE -RECURRING [id number] 18 [id number] MEDICAID -O/P [id number] BLUE CROSS BLUE SHIELD-CLINIC [id number] 18 [id number] MEDICAID [id number] SP [id number] MEDICARE BLUE PPO 306 [id number] SP MEDICARE BLUE PPO 306 [id number] SP [id number] MEDICAID [id number] SELF-PAY UNAVAILABLE S UNAVAILA BLE BLUE CROSS MEDICARE ADVANTAGE [id number] Other [id number] CARTHAGE FREE LIBRARY SP MEDICAID HEA [id number] S [id number] EXCELLUS BLUE CROSS BLUE SHIELD HEA [id number] S [id number] MEDICAID [id number] Gely [id number] EXCELLUS BCBS MEDICARE [id number] Gely [id number] BLUE CROSS MEDICARE ADVANTAGE [id number] Other [id number] EXCELLUS BCBS MEDICARE Medicare MC MEDICAID PI PI MEDICAID [id number] SP [id number] Blue Shield Medicare P [id number] SELF [id number] Medicaid [facility] S D [id number] SELF [id number] Medicaid [facility] S D [id number] SELF [id number] Blue Shield Medicare P [id number] SELF [id number] MEDICAID M [id number] S [id number] MEDICAID [id number] SP [id number] MEDICARE BLUE PPO [id number] SP [id number] MEDICARE RENEE [id number] S [id number] UNAVAILABLE UNAVAILA BLE MEDICARE BLUE PPO 306 [id number] SP [id number] MEDICAID [id number] SP [id number] Excellus BCBS Health Maintenance Organization (HMO) [id number] Self [id number] MEDICARE BLUE PPO 306 [id number] SP [id number] Blue Shield Medicare P [id number] SELF [id number] BLUE CROSS BLUE SHIELD MCR -O/P [id number] 18 [id number] EXCELLUS BCBS B [id number] S [id number] BLUE CROSS BLUE SHIELD-O/P [id number] 18 [id number] MEDICARE BLUE PPO P [id number] S [id number] BCBS MCARE BLUE PPO O [id number] S [id number] BLUE CROSS BLUE SHIELD-PHYSICIAN [id number] 18 [id number] BLUE CROSS BLUE SHIELD-O/P [id number] 18 [id number] BCBS MCARE BLUE PPO O [id number] S [id number] MEDICARE BLUE PPO 306 [id number] SP [id number] UNAVAILABLE UNAVAILA BLE Problems, Conditions, and Diagnoses Code Display Name Description Problem Type Effective Dates Data Source(s) 48190788 Obstructive sleep apnea syndrome Obstructive sle ep apnea syndrome Problem 07/21/2020 12:00:00 AM EST DILMA ([facility] [id number] History of pulmonary embolus History of Pulmonary Embo lucia Problem 06/06/2020 12:00:00 AM FRAHAT ONEIL ([facility] 933055115 Liver function tests abnormal Liver Function Tests Abn ormal Problem 06/06/2020 12:00:00 AM EST [facility] ([facility]) 352476479 Urinary incontinence Urinary Incontinence Problem 06/06/2020 12:00:00 AM FARHAT ONEIL ([facility]) 56355009 Sjgren's syndrome SjGren's Syndrome Problem 1 08/06/2019 12:00:00 AM FARHAT CLAIREENA ([facility]) 364307093 Lupus erythematosus Lupus Erythematosus Problem 1 08/06/2019 12:00:00 AM FARHAT ONEIL ([facility]) 668389179 Endometriosis (clinical) Endometriosis (Clinical) Prob ruben 06/06/2020 12:00:00 AM FARHAT ONEIL ([facility]) 943937162 Gastroesophageal reflux disease without esophagitis Gastroesophageal Reflux Disease without Esophagitis Problem 06/06/2020 12:00:00 AM DANIELLE ONEIL ([facility]) 091421754 Asthma Asthma Problem 06/06/2020 12:00:00 AM DANIELLE ONEIL ([facility]) 18745198 Allergic rhinitis Allergic Rhinitis Problem 06/06/2020 12:00:00 AM FARHAT ONEIL ([facility]) 39992728 Hypertensive disorder Hypertensive Disorder Problem 06/06/2020 12:00:00 AM EST [facility] ([facility]) 83408486 Obstructive sleep apnea syndrome Obstructive Sle ep Apnea Syndrome Problem 06/06/2020 12:00:00 AM FARHAT ONEIL ([facility]) 42030866 Depressive disorder Depressive Disorder Problem 1 08/06/2019 12:00:00 AM FARHAT ONE[place] ([facility]) 23099665 Antiphospholipid syndrome Antiphospholipid Syndrome Pr oblem 06/06/2020 12:00:00 AM EST [place] ([facility]) 461288631 Morbid obesity Morbid Obesity Problem 06/06/2020 12:00: 00 AM EST [place] ([facility]) 49331801 Vitamin D deficiency Vitamin D Deficiency Problem 06/06/2020 12:00:00 AM FARHAT ONEIL ([facility]) 62099019 Hypothyroidism Hypothyroidism Problem 06/06/2020 12:00: 00 AM FARHAT ONE[place] ([facility]) 291289003 History of pulmonary embolus History of Pulmonary Embo lucia Problem 06/06/2020 12:00:00 AM EST [facility] ([facility]) 512411434 Liver function tests abnormal Liver Function Tests Abn ormal Problem 06/06/2020 12:00:00 AM EST [facility] ([facility]) 460331477 Urinary incontinence Urinary Incontinence Problem 06/06/2020 12:00:00 AM EST [facility] ([facility]) 92845569 Sjgren's syndrome SjGren's Syndrome Problem 1 08/06/2019 12:00:00 AM EST [facility] ([facility]) 683370766 Lupus erythematosus Lupus Erythematosus Problem 1 08/06/2019 12:00:00 AM EST [facility] ([facility]) 106300294 Endometriosis (clinical) Endometriosis (Clinical) Prob ruben 06/06/2020 12:00:00 AM EST [place] ([facility]) 815175682 Gastroesophageal reflux disease without esophagitis Gastroesophageal Reflux Disease without Esophagitis Problem 06/06/2020 12:00:00 AM DANIELLE Bryant [place] ([facility]) 343313376 Asthma Asthma Problem 06/06/2020 12:00:00 AM DANIELLE ONEIL ([facility]) 14013107 Allergic rhinitis Allergic Rhinitis Problem 06/06/2020 12:00:00 AM EST [place] ([facility]) 17815299 Hypertensive disorder Hypertensive Disorder Problem 06/06/2020 12:00:00 AM EST [facility] ([facility]) 30606472 Obstructive sleep apnea syndrome Obstructive Sle ep Apnea Syndrome Problem 06/06/2020 12:00:00 AM FARHAT ONE[place] ([facility]) 03454667 Depressive disorder Depressive Disorder Problem 1 08/06/2019 12:00:00 AM EST [facility] ([facility]) 12593707 Antiphospholipid syndrome Antiphospholipid Syndrome Pr oblem 06/06/2020 12:00:00 AM EST [facility] ([facility]) 150269409 Morbid obesity Morbid Obesity Problem 06/06/2020 12:00: 00 AM FARHAT ONE[place] ([facility]) 88537354 Vitamin D deficiency Vitamin D Deficiency Problem 06/06/2020 12:00:00 AM FARHAT ONE[facility] ([facility]) 73130875 Hypothyroidism Hypothyroidism Problem 06/06/2020 12:00: 00 AM FARHAT ONE[place] ([facility]) 538994298 History of pulmonary embolus History of Pulmonary Embo lucia Problem 06/06/2020 12:00:00 AM EST [facility] ([facility]) 896605930 Liver function tests abnormal Liver Function Tests Abn ormal Problem 06/06/2020 12:00:00 AM FARHAT ONE[place] ([facility]) 903517819 Urinary incontinence Urinary Incontinence Problem 06/06/2020 12:00:00 AM EST [facility] ([facility]) 03645227 Sjgren's syndrome SjGren's Syndrome Problem 1 08/06/2019 12:00:00 AM EST [facility] ([facility]) 385255037 Lupus erythematosus Lupus Erythematosus Problem 1 08/06/2019 12:00:00 AM EST [facility] ([facility]) 107473901 Endometriosis (clinical) Endometriosis (Clinical) Prob ruben 06/06/2020 12:00:00 AM FARHAT ONE[place] ([facility]) 995046845 Gastroesophageal reflux disease without esophagitis Gastroesophageal Reflux Disease without Esophagitis Problem 06/06/2020 12:00:00 AM DANIELLE Manny ONEIL ([facility]) 768725622 Asthma Asthma Problem 06/06/2020 12:00:00 AM DANIELLE ONEIL ([facility]) 42473351 Allergic rhinitis Allergic Rhinitis Problem 06/06/2020 12:00:00 AM FARHAT ONE[place] ([facility]) 36354312 Hypertensive disorder Hypertensive Disorder Problem 06/06/2020 12:00:00 AM EST [facility] ([facility]) 38302194 Obstructive sleep apnea syndrome Obstructive Sle ep Apnea Syndrome Problem 06/06/2020 12:00:00 AM FARHAT ONE[place] ([facility]) 18957251 Depressive disorder Depressive Disorder Problem 1 08/06/2019 12:00:00 AM EST [facility] ([facility]) 86004627 Antiphospholipid syndrome Antiphospholipid Syndrome Pr oblem 06/06/2020 12:00:00 AM EST [facility] ([facility]) 848878882 Morbid obesity Morbid Obesity Problem 06/06/2020 12:00: 00 AM FARHAT ONE[place] ([facility]) 42158770 Vitamin D deficiency Vitamin D Deficiency Problem 06/06/2020 12:00:00 AM EST [facility] ([facility]) 22310795 Hypothyroidism Hypothyroidism Problem 06/06/2020 12:00: 00 AM FARHAT ONEIL ([facility]) 770321531 History of pulmonary embolus History of Pulmonary Embo lucia Problem 06/06/2020 12:00:00 AM EST [facility] ([facility]) 959529943 Liver function tests abnormal Liver Function Tests Abn ormal Problem 06/06/2020 12:00:00 AM EST [facility] ([facility]) 862890224 Urinary incontinence Urinary Incontinence Problem 06/06/2020 12:00:00 AM EST [facility] ([facility]) 19675209 Sjgren's syndrome SjGren's Syndrome Problem 1 08/06/2019 12:00:00 AM EST [facility] ([facility]) 819438667 Lupus erythematosus Lupus Erythematosus Problem 1 08/06/2019 12:00:00 AM EST [facility] ([facility]) 834630062 Endometriosis (clinical) Endometriosis (Clinical) Prob ruben 06/06/2020 12:00:00 AM EST [facility] ([facility]) 190894221 Gastroesophageal reflux disease without esophagitis Gastroesophageal Reflux Disease without Esophagitis Problem 06/06/2020 12:00:00 AM DANIELLE ONEIL ([facility]) 570878438 Asthma Asthma Problem 06/06/2020 12:00:00 AM DANIELLE ONEIL ([facility]) 10337217 Allergic rhinitis Allergic Rhinitis Problem 06/06/2020 12:00:00 AM FARHAT ONE[place] ([facility]) 42320151 Hypertensive disorder Hypertensive Disorder Problem 06/06/2020 12:00:00 AM FARHAT ONE[facility] ([facility]) 63145081 Obstructive sleep apnea syndrome Obstructive Sle ep Apnea Syndrome Problem 06/06/2020 12:00:00 AM EST [facility] ([facility]) 02526229 Depressive disorder Depressive Disorder Problem 1 08/06/2019 12:00:00 AM FARHAT ONEIL ([facility]) 77818219 Antiphospholipid syndrome Antiphospholipid Syndrome Pr oblem 06/06/2020 12:00:00 AM FARHAT ONE[facility] ([facility]) 360360586 Morbid obesity Morbid Obesity Problem 06/06/2020 12:00: 00 AM FARHAT ONE[place] ([facility]) 79756185 Vitamin D deficiency Vitamin D Deficiency Problem 06/06/2020 12:00:00 AM FARHAT ONEIL ([facility]) 58503940 Hypothyroidism Hypothyroidism Problem 06/06/2020 12:00: 00 AM FARHAT ONEIL ([facility]) 06430510 Sjgren's syndrome SjGren's Syndrome Problem 1 08/06/2019 12:00:00 AM FARHAT ONE[facility] ([facility]) 927319440 Lupus erythematosus Lupus Erythematosus Problem 1 08/06/2019 12:00:00 AM EST [facility] ([facility]) 600901955 Endometriosis (clinical) Endometriosis (Clinical) Prob ruben 06/06/2020 12:00:00 AM FARHAT ONEIL ([facility]) 145520467 Gastroesophageal reflux disease without esophagitis Gastroesophageal Reflux Disease without Esophagitis Problem 06/06/2020 12:00:00 AM DANIELLE ONEIL ([facility]) 952277464 Asthma Asthma Problem 06/06/2020 12:00:00 AM DANIELLE ONEIL ([facility]) 40308641 Allergic rhinitis Allergic Rhinitis Problem 06/06/2020 12:00:00 AM EST THAD ([facility]) 50760332 Hypertensive disorder Hypertensive Disorder Problem 06/06/2020 12:00:00 AM FARHAT ONEIL ([facility]) 39739493 Obstructive sleep apnea syndrome Obstructive Sle ep Apnea Syndrome Problem 06/06/2020 12:00:00 AM FARHAT ONEIL ([facility]) 19442294 Depressive disorder Depressive Disorder Problem 1 08/06/2019 12:00:00 AM FARHAT ONEIL ([facility]) 48503083 Antiphospholipid syndrome Antiphospholipid Syndrome Pr oblem 06/06/2020 12:00:00 AM EST [facility] ([facility]) 389086494 Morbid obesity Morbid Obesity Problem 06/06/2020 12:00: 00 AM FARHAT ONEIL ([facility]) 80525332 Vitamin D deficiency Vitamin D Deficiency Problem 06/06/2020 12:00:00 AM FARHAT ONEIL ([facility]) 97418083 Hypothyroidism Hypothyroidism Problem 06/06/2020 12:00: 00 AM FARHAT ONEIL ([facility]) 458644127 History of pulmonary embolus History of Pulmonary Embo lucia Problem 06/06/2020 12:00:00 AM EST [facility] ([facility]) 883856008 Liver function tests abnormal Liver Function Tests Abn ormal Problem 06/06/2020 12:00:00 AM EST [facility] ([facility]) 592818859 Urinary incontinence Urinary Incontinence Problem 06/06/2020 12:00:00 AM EST [facility] ([facility]) 82269819 Sjgren's syndrome SjGren's Syndrome Problem 1 08/06/2019 12:00:00 AM EST [facility] ([facility]) 357022162 Lupus erythematosus Lupus Erythematosus Problem 1 08/06/2019 12:00:00 AM EST [facility] ([facility]) 602662003 Endometriosis (clinical) Endometriosis (Clinical) Prob ruben 06/06/2020 12:00:00 AM FARHAT ONEIL ([facility]) 348078244 Gastroesophageal reflux disease without esophagitis Gastroesophageal Reflux Disease without Esophagitis Problem 06/06/2020 12:00:00 AM DANIELLE Manny [facility] ([facility]) 566962485 Asthma Asthma Problem 06/06/2020 12:00:00 AM DANIELLE ONEIL ([facility]) 38110722 Allergic rhinitis Allergic Rhinitis Problem 06/06/2020 12:00:00 AM FARHAT ONEIL ([facility]) 27552893 Hypertensive disorder Hypertensive Disorder Problem 06/06/2020 12:00:00 AM EST [facility] ([facility]) 46133669 Obstructive sleep apnea syndrome Obstructive Sle ep Apnea Syndrome Problem 06/06/2020 12:00:00 AM FARHAT ONEIL ([facility]) 44646601 Depressive disorder Depressive Disorder Problem 1 08/06/2019 12:00:00 AM EST THAD ([facility]) 20540975 Antiphospholipid syndrome Antiphospholipid Syndrome Pr oblem 06/06/2020 12:00:00 AM EST [facility] ([facility]) 348979148 Morbid obesity Morbid Obesity Problem 06/06/2020 12:00: 00 AM FARHAT ONEIL ([facility]) 68474103 Vitamin D deficiency Vitamin D Deficiency Problem 06/06/2020 12:00:00 AM FARHAT ONEIL ([facility]) 08424060 Hypothyroidism Hypothyroidism Problem 06/06/2020 12:00: 00 AM FARHAT ONEIL ([facility]) 489891055 History of pulmonary embolus History of Pulmonary Embo lucia Problem 06/06/2020 12:00:00 AM EST [facility] ([facility]) 368303550 Liver function tests abnormal Liver Function Tests Abn ormal Problem 06/06/2020 12:00:00 AM FARHAT ONEIL ([facility]) 983572538 Urinary incontinence Urinary Incontinence Problem 06/06/2020 12:00:00 AM EST [facility] ([facility]) 16329226 Sjgren's syndrome SjGren's Syndrome Problem 1 08/06/2019 12:00:00 AM EST [facility] ([facility]) 220543021 Lupus erythematosus Lupus Erythematosus Problem 1 08/06/2019 12:00:00 AM EST [facility] ([facility]) 558322680 Endometriosis (clinical) Endometriosis (Clinical) Prob ruben 06/06/2020 12:00:00 AM FARHAT ONEIL ([facility]) 270269351 Gastroesophageal reflux disease without esophagitis Gastroesophageal Reflux Disease without Esophagitis Problem 06/06/2020 12:00:00 AM DNAIELLE ONEIL ([facility]) 838407216 Asthma Asthma Problem 06/06/2020 12:00:00 AM DANIELLE ONEIL ([facility]) 41146409 Allergic rhinitis Allergic Rhinitis Problem 06/06/2020 12:00:00 AM FARHAT ONEIL ([facility]) 62984626 Hypertensive disorder Hypertensive Disorder Problem 06/06/2020 12:00:00 AM EST THAD ([facility]) 64556736 Obstructive sleep apnea syndrome Obstructive Sle ep Apnea Syndrome Problem 06/06/2020 12:00:00 AM EST THAD ([facility]) 94185499 Depressive disorder Depressive Disorder Problem 1 08/06/2019 12:00:00 AM EST [facility] ([facility]) 33333268 Antiphospholipid syndrome Antiphospholipid Syndrome Pr oblem 06/06/2020 12:00:00 AM EST [facility] ([facility]) 480543637 Morbid obesity Morbid Obesity Problem 06/06/2020 12:00: 00 AM FARHAT ONEIL ([facility]) 39868156 Vitamin D deficiency Vitamin D Deficiency Problem 06/06/2020 12:00:00 AM EST [facility] ([facility]) 19663027 Hypothyroidism Hypothyroidism Problem 06/06/2020 12:00: 00 AM FARHAT ONEIL ([facility]) 458384991 History of pulmonary embolus History of Pulmonary Embo lucia Problem 06/06/2020 12:00:00 AM EST THAD ([facility]) 455201395 Liver function tests abnormal Liver Function Tests Abn ormal Problem 06/06/2020 12:00:00 AM EST [facility] ([facility]) 307924755 Urinary incontinence Urinary Incontinence Problem 06/06/2020 12:00:00 AM EST [facility] ([facility]) 68431744 Sjgren's syndrome SjGren's Syndrome Problem 1 08/06/2019 12:00:00 AM EST THAD ([facility]) 488947488 Lupus erythematosus Lupus Erythematosus Problem 1 08/06/2019 12:00:00 AM EST THAD ([facility]) 583113302 Endometriosis (clinical) Endometriosis (Clinical) Prob ruben 06/06/2020 12:00:00 AM EST TH[facility] ([facility]) 111123320 Gastroesophageal reflux disease without esophagitis Gastroesophageal Reflux Disease without Esophagitis Problem 06/06/2020 12:00:00 AM DANIELLE ONEIL ([facility]) 732094850 Asthma Asthma Problem 06/06/2020 12:00:00 AM DANIELLE ONEIL ([facility]) 64474849 Allergic rhinitis Allergic Rhinitis Problem 06/06/2020 12:00:00 AM FARHAT ONEIL ([facility]) 58903834 Hypertensive disorder Hypertensive Disorder Problem 06/06/2020 12:00:00 AM EST THAD ([facility]) 69913545 Obstructive sleep apnea syndrome Obstructive Sle ep Apnea Syndrome Problem 06/06/2020 12:00:00 AM EST THAD ([facility]) 84266352 Depressive disorder Depressive Disorder Problem 1 08/06/2019 12:00:00 AM EST [facility] ([facility]) 39958191 Antiphospholipid syndrome Antiphospholipid Syndrome Pr oblem 06/06/2020 12:00:00 AM EST [facility] ([facility]) 079030741 Morbid obesity Morbid Obesity Problem 06/06/2020 12:00: 00 AM FARHAT ONEIL ([facility]) 67142264 Vitamin D deficiency Vitamin D Deficiency Problem 06/06/2020 12:00:00 AM EST THAD ([facility]) 01999980 Hypothyroidism Hypothyroidism Problem 06/06/2020 12:00: 00 AM EST THAD ([facility]) 822293311 History of pulmonary embolus History of Pulmonary Embo lucia Problem 06/06/2020 12:00:00 AM EST [facility] ([facility]) 103357676 Liver function tests abnormal Liver Function Tests Abn ormal Problem 06/06/2020 12:00:00 AM EST THAD ([facility]) 970460476 Urinary incontinence Urinary Incontinence Problem 06/06/2020 12:00:00 AM EST THAD ([facility]) 797344965 History of pulmonary embolus History of Pulmonary Embo lucia Problem 06/06/2020 12:00:00 AM EST THAD ([facility]) 444323190 Liver function tests abnormal Liver Function Tests Abn ormal Problem 06/06/2020 12:00:00 AM EST THAD ([facility]) 377270962 Urinary incontinence Urinary Incontinence Problem 06/06/2020 12:00:00 AM EST THAD ([facility]) 11885519 Sjgren's syndrome SjGren's Syndrome Problem 1 08/06/2019 12:00:00 AM EST THAD ([facility]) 730578214 Lupus erythematosus Lupus Erythematosus Problem 1 08/06/2019 12:00:00 AM EST THAD ([facility]) 868012085 Endometriosis (clinical) Endometriosis (Clinical) Prob ruben 06/06/2020 12:00:00 AM EST THAD ([facility]) 158838103 Gastroesophageal reflux disease without esophagitis Gastroesophageal Reflux Disease without Esophagitis Problem 06/06/2020 12:00:00 AM DANIELLE ONEIL ([facility]) 521025773 Asthma Asthma Problem 06/06/2020 12:00:00 AM DANIELLE ONEIL ([facility]) 42708149 Allergic rhinitis Allergic Rhinitis Problem 06/06/2020 12:00:00 AM FARHAT ONEIL ([facility]) 78381263 Hypertensive disorder Hypertensive Disorder Problem 06/06/2020 12:00:00 AM EST THAD ([facility]) 27720390 Obstructive sleep apnea syndrome Obstructive Sle ep Apnea Syndrome Problem 06/06/2020 12:00:00 AM EST THAD ([facility]) 57888009 Depressive disorder Depressive Disorder Problem 1 08/06/2019 12:00:00 AM FARHAT ONEIL ([facility]) 46436458 Antiphospholipid syndrome Antiphospholipid Syndrome Pr oblem 06/06/2020 12:00:00 AM EST THAD ([facility] [facility] [id number] Morbid obesity Morbid Obesity Problem 06/06/2020 12:00: 00 AM EST TH[facility] ([facility]) 35051309 Vitamin D deficiency Vitamin D Deficiency Problem 06/06/2020 12:00:00 AM EST [facility] 68028676 Hypothyroidism Hypothyroidism Problem 06/06/2020 12:00: 00 AM EST [facility] ([facility]) 379573653 History of pulmonary embolus History of Pulmonary Embo lucia Problem 06/06/2020 12:00:00 AM EST [facility] ([facility]) [id number] Liver function tests abnormal Liver Function Tests Abn ormal Problem 06/06/2020 12:00:00 AM EST [facility] ([facility]) 889730897 Urinary incontinence Urinary Incontinence Problem 06/06/2020 12:00:00 AM FARHAT ONEIL ([facility]) 24769511 Sjgren's syndrome SjGren's Syndrome Problem 1 08/06/2019 12:00:00 AM EST [facility] ([facility]) 227874420 Lupus erythematosus Lupus Erythematosus Problem 1 08/06/2019 12:00:00 AM EST [facility] ([facility]) 976107754 Endometriosis (clinical) Endometriosis (Clinical) Prob ruben 06/06/2020 12:00:00 AM EST [facility] ([facility]) 607344369 Gastroesophageal reflux disease without esophagitis Gastroesophageal Reflux Disease without Esophagitis Problem 06/06/2020 12:00:00 AM DANIELLE ONEIL ([facility]) [id number] Asthma Asthma Problem 06/06/2020 12:00:00 AM DANIELLE ONEIL ([facility]) 83212481 Allergic rhinitis Allergic Rhinitis Problem 06/06/2020 12:00:00 AM FARHAT ONEIL ([facility]) 24984180 Hypertensive disorder Hypertensive Disorder Problem 06/06/2020 12:00:00 AM F[facility]HAT ONE[facility] ([facility]) 67528393 Obstructive sleep apnea syndrome Obstructive Sle ep Apnea Syndrome Problem 06/06/2020 12:00:00 AM FARHAT ONEIL ([facility]) 25085170 Depressive disorder Depressive Disorder Problem 1 08/06/2019 12:00:00 AM FAR[facility]AT ONEIL ([facility] 22906628 Antiphospholipid syndrome Antiphospholipid Syndrome Pr oblem 06/06/2020 12:00:00 AM EST [facility] ([facility]) 490972567 Morbid obesity Morbid Obesity Problem 06/06/2020 12:00: 00 AM EST [facility]AD ([facility]) 21046528 Vitamin D deficiency Vitamin D Deficiency Problem 06/06/2020 12:00:00 AM EST [facility] ([facility]) 57298556 Hypothyroidism Hypothyroidism Problem 06/06/2020 12:00: 00 AM FARHAT THAD ([facility]) F33.9 Major depressive disorder, recurrent, un specified Major depressive disorder, recurrent, unspecified 04/25/2020 02:02:07 PM EDT [facility] Z00.8 Encounter for other general examination Encounter for other general examination 04/25/2020 02:02:07 PM EDT [facility] 47048945 Hypothyroidism, unspecified Hypothyroidism, unspecifie d 04/25/2020 02:02:07 PM EDT [facility] 177828801 Unspecified asthma, uncomplicated Unspecified asthma, uncomplicated 04/25/2020 02:02:07 PM EDT [facility] 530.81 Gastro-esophageal reflux disease without esophagitis Gastro-esophageal reflux disease without esophagitis 04/25/2020 02:02:07 PM ED T [facility] 09287790 Vitamin D deficiency, unspecified Vitamin D deficiency , unspecified 04/25/2020 02:02:07 PM EDT [facility] 90597689 Systemic lupus erythematosus, unspecifie d Systemic lupus erythematosus, unspecified 04/25/2020 02:02:07 PM EDT [facility] V85.43 BMI 50.0-59.9 BMI 50.0-59.9 04/25/2020 02:02:07 PM EDT [facility] 278.01 MORBID OBESITY MORBID OBESITY 04/25/2020 02:02: 07 PM EDT [facility] 651926275 Mild persistent asthma Mild persistent asthma Problem 03/20/2020 12:00:00 AM EDT [facility] ([facility] ) 914414883 Gastroesophageal reflux disease Gastroesophageal reflux disease Problem 01/08/2020 12:00:00 AM EDT [facility] ([facility]) 40659533 Essential hypertension Essential hypertension Problem 01/08/2020 12:00:00 AM EDT [facility] ([facility] ) 31160938 Cough Cough Problem 01/08/2020 12:00:00 AM ED T [facility] ([facility]) 891236239 Allergic rhinitis due to house dust mite Allergic rhinitis due to house dust mite Problem 01/08/2020 12:00:00 AM EDT [facility] ([facility]) Note: 4++ reaction to dust mites on intr adermal test completed in 2019. 84001438 Hypokalemia Hypokalemia Problem 11/19/2019 12:00:00 AM EDT [facility] ([facility] 50406443 Moderate recurrent major depression Mode rate recurrent major depression Problem 09/10/2019 12:00:00 AM EST [facility] ([facility] M70.61 4005127 Greater trochanteric bursitis of right hi p Problem 09/04/2019 12:00:00 AM EST [facility] G43.709 321295834 Chronic migraine Problem 09/04/2019 12:00:00 AM EST [facility]CW1 [facility]) Z86.711 350140551 History of pulmonary embolism Problem 09/04/2019 12:00:00 AM EST eCW1 ([facility]) Z86.19 466577463 History of Lyme disease Problem 09/04/2019 1 2:00:00 AM EST eCW1 [facility]) G89.29 66966704 Other chronic pain Problem 09/04/2019 12:00: 00 AM EST eCW1 [facility]) Z86.2 689765898 History of antiphospholipid syndrome Prob ruben 09/04/2019 12:00:00 AM EST eCW1 [facility]) M54.6 [id number] Pain in thoracic spine Problem 09/04/19 12:00:00 AM EST eCW1 ([facility]) R52 06068589 Pain of multiple sites Problem 09/04/2019 12 :00:00 AM EST eCW1 ([facility]) M79.18 68099746 Myalgia, other site Problem 09/04/2019 12:00 :00 AM EST eCW1 ([facility]) Z92.29 195723789 History of Coumadin therapy Problem 09/04/19 20 12:00:00 AM EST eCW1 [facility]) 38820274 Obstructive sleep apnea syndrome Obstructive sle ep apnea syndrome Problem 08/28/2019 12:00:00 AM EST [facility] ([facility] 25711582 Paresthesia Paresthesia Problem 08/24/2019 12:00:00 AM EST [facility] ([facility]) 83330643 Headache Headache Problem 08/24/2019 12:00:00 AM ES T [facility] ([facility] ) 727806088 Morbid obesity Morbid obesity Problem 06/25/2019 12:00: 00 AM EST [facility] ([facility] 268663641 Cerebral arterial aneurysm Cerebral arterial aneurysm Problem 06/25/2019 12:00:00 AM EST [facility] ([facility] 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 Diagnosis 05/08/2020 08:57:00 AM EDT [facility] Z23 Encounter for immunization ENCOUNTER FOR IMMUNIZATION Diagnosis 05/08/2020 08:57:00 AM [facility] D68.61 Antiphospholipid syndrome ANTIPHOSPHOLIPID SYNDROME Di agnosis 05/08/2020 08:57:00 AM EDT [facility] M32.9 Systemic lupus erythematosus, unspecifie d SYSTEMIC LUPUS ERYTHEMATOSUS, UNSPECIFIED Diagnosis 05/08/2020 [facility] Pain in right lower leg Pain in right lower leg Diagno sis 04/01/2020 [facility] Unspecified place in unspeci fied non-institutional (private) residence as the place of occurrence of the external cause Unspecified place in unspecified non-institutional (private) residence as the place of occurrence of the external cause Diagnosis 03/17/2020 10:57:00 PM T [facility] [id number] Bitten or stung by nonvenomo us insect and other nonvenomous arthropods, initial encounter Bitten or stung by nonvenomous insect an d other nonvenomous arthropods, initial encounter Diagnosis 03/17/2020 10:57:[address] [facility] M7122 Synovial cyst of popliteal space [Lloyd] , left knee Synovial cyst of popliteal space [Lloyd], left knee Diagnosis 03/17/2020 10:57:00 PM ED T [facility] [id number] Insect bite (nonvenomous), right lower l eg, initial encounter Insect bite (nonvenomous), right lower leg, initial encounter Diagnosis 03/17/2020 10:57:00 PM EDT [facility] Z5189 Encounter for other specified aftercare Encounter for other specified aftercare Diagnosis 03/04/2020 09:55:[address] 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 Diagnosis 03/03/2020 03:28:00 PM EDT [facility] Z86.711 Personal history of pulmonary embolism P ERSONAL HISTORY OF PULMONARY EMBOLISM Diagnosis 03/03/2020 03:28:00 PM EDT [facility] L03.311 Cellulitis of abdominal wall CELLULITIS OF ABDOMINAL W ALL Diagnosis 03/03/2020 03:28:00 PM EDT [facility] M79.605 Pain in left leg PAIN IN LEFT LEG Diagnosis 03/03/2020 03 :28:00 PM EDT [facility] M32.9 Systemic lupus erythematosus, unspecifie d SYSTEMIC LUPUS ERYTHEMATOSUS, UNSPECIFIED Diagnosis 03/03/2020 03:28:00 PM EDT [facility] D68.61 Antiphospholipid syndrome ANTIPHOSPHOLIPID SYNDROME Di agnosis 03/03/2020 03:28:00 PM EDT [facility] S94467 Pain in left shoulder Pain in left shoulder Diagnosis 01/07/2020 08:22:00 AM EDT [facility] 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 Diagnosis 08/17/2019 03:0 4:44 PM [facility] 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 Unspecified vis ual field defects Diagnosis 08/17/2019 03:04:44 PM [facility] Z79.899 Other fpc (current) drug therapy O ther fpc (current) drug therapy Diagnosis 08/17/2019 03:04:44 PM [facility] I26.99 Other pulmonary embolism without acute c or pulmonale OTHER PULMONARY EMBOLISM WITHOUT ACUTE C Diagnosis 07/16/2019 01:09:00 PM [facility] Surgeries/Procedures Procedure Description Date Indications Data Source(s) ARTHROCENTESIS ASPIR&/INJECTION MAJOR JT/BURSA 12:00:00 AM EST [facility] ([facility]) RADIOLOGIC EXAM KNEE COMPLETE 4/MORE VIEWS 07/21/2020 12:00:00 AM [facility] ([facility]) BRNCDILAT RSPSE SPMTRY PRE&POST-BRNCDILAT ADMN 12:00:00 AM EST [facility] ([facility]) ARTHROCENTESIS ASPIR&/INJECTION MAJOR JT[facility]BURSA [facility] Upper GI Biopsy 05/26/2020 12:00:00 AM [facility] ([facility] ) Colonoscopy Flexible Proximal To Splenic Flexure Diagnostic W/Or 05/26/2020 12:00:00 AM [facility] ([facility]ice, ) ARTHROCENTESIS ASPIR&/INJECTION MAJOR JT/BURSA 12:00:00 AM [facility] ([facility]) Hospital outpatient clinic visit for assessment and ma nagement of a patient Hospital Outpatient Clinic Visit 05/08/2020 12:00:00 AM [facility] IMADM PRQ ID SUBQ/IM NJXS EA VACCINE IMMUNIZATION ADMIN EACH ADD 05/08/2020 12:00:00 AM [facility] Administration of influenza virus vaccine 05/08/2020 1 2:00:00 AM [facility] TDAP VACCINE 7/> YR IM TDAP VACCINE 7 YRS/> IM 05/08/2020 12:00:00 AM [facility] 42619 IIV4 VACC NO PRSV 0.5 ML IM 05/08/2020 12:00:00 AM [facility] ARTHROCENTESIS ASPIR&/INJECTION MAJOR JT/BURSA 10/05/2 020 12:00:00 AM EDT [facility] ([facility] ) FAF PHOTOS OU FAF PHOTOS OU Routine 04/17/2020 2:18 PM EDT Other systemic lupus erythematosus with glomerular disease 04/17/2020 02:18:16 PM EDT Other systemic lupus erythematosus with glomerular dis [facility] Other systemic lupus erythematosus with glomerular disease OCT RETINA OCT RETINA Routine 04/17/2020 2:10 PM EDT Other systemic lupus erythematosus with glomerular disease 04/17/2020 02:10:16 PM EDT Other systemic lupus erythematosus with glomerular dis [facility] Other systemic lupus erythematosus with glomerular disease ROACH VISUAL FIELD - OU - BOTH EYES ROACH VISUAL FIEL D - OU - BOTH EYES Routine 04/17/2020 2:09 PM EDT Other systemic lupus erythematosus with glomerular disease 04/17/2020 02:09:56 PM EDT Other systemic lupus erythematosus with glomerular dis [facility] Other systemic lupus erythematosus with glomerular disease Injection For Nerve Block, Greater Occipital Nerve 04/15/2020 12:00:00 AM EDT [facility] ([facility] ) INJECTION ANES OTHER PERIPHERAL NERVE/BRANCH 0 12:00:00 AM EDT [facility] ([facility] ) APPLICATION SHORT LEG CAST BELOW KNEE-TOE 04/03/2020 1 2:00:00 AM EDT [facility] ([facility] ) ARTHROCENTESIS ASPIR&/INJECTION MAJOR JT/BURSA 020 12:00:00 AM EDT [facility] ([facility] ) RADIOLOGIC EXAM KNEE COMPLETE 4/MORE VIEWS 03/26/2020 12:00:00 AM EDT [facility] ([facility] ) RADEX ANKLE COMPLETE MINIMUM 3 VIEWS 03/04/2020 12:00: 00 AM EDT [facility] ([facility] ) RADEX FOOT COMPLETE MINIMUM 3 VIEWS 03/04/2020 12:00:0 0 AM EDT [facility] ([facility] ) RADEX ANKLE COMPLETE MINIMUM 3 VIEWS 03/04/2020 12:00: 00 AM EDT [facility] ([facility] ) RADEX FOOT COMPLETE MINIMUM 3 VIEWS 03/04/2020 12:00:0 0 AM EDT [facility] ([facility] ) Injection For Nerve Block, Greater Occipital Nerve 02/21/2020 12:00:00 AM EDT [facility] ([facility] ) INJECTION ANES OTHER PERIPHERAL NERVE/BRANCH 0 12:00:00 AM EDT [facility] ) COMPLEMENT ANTIGEN EACH COMPONENT COMPLEMENT ANTIGEN 02/07/2020 12:00:00 AM [facility] DNA ANTIBODY [place]/DOUBLE STRANDED DNA ANTIBODY [place] 04/2020 12:00:00 AM [facility] URNLS DIP STICK/TABLET REAGENT AUTO MICROSCOPY URINALYSIS AU TO W/SCOPE 02/07/2020 12:00:00 AM [facility] COLLECTION VENOUS BLOOD VENIPUNCTURE ROUTINE VENIPUNCTURE 12:00:00 AM [facility] SEDIMENTATION RATE RBC NON-AUTOMATED RBC SED RATE NONAUTOMAT ED 02/07/2020 12:00:00 AM [facility] CREATININE OTHER SOURCE ASSAY OF URINE CREATININE 02/07/2020 12:00: 00 AM [facility] PROTEIN TOTAL XCPT REFRACTOMETRY URINE ASSAY OF PROTEIN URIN E 02/07/2020 12:00:00 AM [facility] C-REACTIVE PROTEIN C-REACTIVE PROTEIN 02/07/2020 12:00:00 AM [facility] BRNCDILAT RSPSE SPMTRY PRE&POST-BRNCDILAT ADMN 020 12:00:00 AM EDT [facility] ([facility]) PERCUTANEOUS TESTS W/ALLERGENIC EXTRACTS 01/08/2020 12 :00:00 AM EDT [facility] ([facility] INTRACUTANEOUS TESTS W/ALLERGENIC EXTRACTS 01/08/2020 12:00:00 AM EDT [facility] ([facility]) RADEX ANKLE COMPLETE MINIMUM 3 VIEWS 12/25/2019 12:00: 00 AM EDT [facility] ([facility] ) MRI SPINAL CANAL CERVICAL W/O CONTRAST MATRL 0 12:00:00 AM EDT [facility] ([facility] ) MRI SPINAL CANAL CERVICAL W/O CONTRAST MATRL 0 12:00:00 AM EDT [facility] ([facility] ) Needle electromyography, each extremity, with related paraspinal areas, when performed, done with nerve conduction, amplitude and latency/velocity study; complete, five or more muscles studied, innervated by three or more nerves or four or more spinal levels (list separately in addition to the code for primary procedure). 10/26/2019 12:00:00 AM EDT MEDEN T ([facility] ) Needle Electromyography Non Extremity Done With Nerve Conduc tion 10/26/2019 12:00:00 AM EDT [facility] ([facility] ) Nerve Conduction 9-10 Studies 10/26/2019 12:00:00 AM E DT [facility] ([facility] ) MRI BRAIN BRAIN STEM W/O CONTRAST MATERIAL 10/22/2019 12:00:00 AM EDT [facility] ([facility] ) MRI BRAIN BRAIN STEM W/O CONTRAST MATERIAL 10/22/2019 12:00:00 AM EDT [facility] ([facility] ) MRI SPINAL CANAL LUMBAR W/O CONTRAST MATERIAL 10/20/19 12:00:00 AM EDT [facility] ([facility] ) MRI SPINAL CANAL LUMBAR W/O CONTRAST MATERIAL 10/20/19 20 12:00:00 AM EDT [facility] ([facility] ) MRI BRAIN BRAIN STEM W/O CONTRAST MATERIAL 10/19/2019 12:00:00 AM EDT [facility] ([facility] ) MRI SPINAL CANAL CERVICAL W/O CONTRAST MATRL 0 12:00:00 AM EDT [facility] ([facility] ) TSTG ANS FUNCJ CARDIOVAGAL INNERVAJ PARASYMP 0 12:00:00 AM EST [facility] ([facility] ) TSTG ANS FUNCJ CARDIOVAGAL INNERVAJ PARASYMP 0 12:00:00 AM EST [facility] ([facility] ) TESTING AUTONOMIC NERVOUS SYSTEM FUNCTION 09/14/2019 1 2:00:00 AM EST [facility] ([facility] ) TESTING AUTONOMIC NERVOUS SYSTEM FUNCTION 09/14/2019 1 2:00:00 AM EST [facility] ([facility] ) Magnetic Resonance Angiography Neck W/O Contrast Materials 09/08/2019 12:00:00 AM EST [facility] ([facility] ) Magnetic Resonance Angiography Neck W/O Contrast Materials 09/08/2019 12:00:00 AM EST [facility] ([facility] ) Needle electromyography, each extremity, with related paraspinal areas, when performed, done with nerve conduction, amplitude and latency/velocity study; complete, five or more muscles studied, innervated by three or more nerves or four or more spinal levels (list separately in addition to the code for primary procedure). 08/30/2019 12:00:00 AM EST MEDEN T ([facility] ) Needle electromyography, each extremity, with related paraspinal areas, when performed, done with nerve conduction, amplitude and latency/velocity study; complete, five or more muscles studied, innervated by three or more nerves or four or more spinal levels (list separately in addition to the code for primary procedure). 08/30/2019 12:00:00 AM EST MEDEN T ([facility] ) 50773 Nerve conduction studies 13 or more studies NEW 201208/30/2019 12:00:00 AM EST [facility] ([facility] ) ESTABILISHED PATIENT [facility] CHARGE 020 12:00:00 AM EST eCW1 [facility]) Eligible professional attests to aide saleh in the medical record they obtained, updated, or reviewed the patient's current medications 08/27/2019 12:00:00 AM EST eCW1 ([facility]) Pain assessment documented as positive u sing a standardized tool and a follow-up plan is documented 08/27/2019 12:00:00 AM EST e CW1 ([facility]) COLOR FUNDUS PHOTOGRAPHY - OU - BOTH EYES COLOR FUNDU S PHOTOGRAPHY - OU - BOTH EYES Routine 08/17/2019 4:33 PM EST Other systemic lupus erythematosus with glomerular disease High risk medication use Visual field defect of left eye 08/17/2019 09:33:46 PM EST V isual field defect of left eyeHigh risk medication useOther systemic lupus erythematosus with glomerular disease [facility] Visual field defect of left eye [...] useOther systemic lupus erythematosus with glomerular disease [facility] Visual field defect of left eye High risk medication use Other systemic lupus erythematosus with glomerular disease OCT RETINA OCT RETINA Routine 08/17/2019 4:33 PM EST High risk medication use 08/17/2019 09:33:40 PM EST High risk me dication use [facility] High risk medication use ROACH VISUAL FIELD - OU - BOTH EYES ROACH VISUAL FIEL D - OU - BOTH EYES Routine 08/17/2019 4:33 PM EST High risk medication use 08/17/2019 09:33:37 PM EST High risk me dication use [facility] High risk medication use FUNDUS PHOTOGRAPHY W/INTERPRETATION & REPORT FUNDUS A UTOFLUORESCENCE (FAF) [id number] EYES Routine 08/17/2019 4:33 PM EST Other systemic lupus erythematosus with glomerular disease High risk medication use Visual field defect of left eye 08/17/2019 09:33:34 PM EST V isual field defect of left eyeHigh risk medication useOther systemic lupus erythematosus with glomerular disease [facility] Visual field defect of left eye High risk medication use Other systemic lupus erythematosus with glomerular disease ARTHROCENTESIS ASPIR&/INJECTION MAJOR JT/BURSA DRAIN/INJ MISSY NT/BURSA W/O US 07/02/2019 12:00:00 AM [facility] Injection, triamcinolone acetonide, not otherwise specified , 10 mg 07/02/2019 12:00:00 AM [facility] Electrocardiogram Complete 06/25/2019 12:00:00 AM EST [facility] ([facility] Results ID Date Data Source [id number] 08/04/2020 12:52:00 PM EST THAD ([facility]) Name Value Range Interpretation Code Description Data Joyce rce(s) Supporting Document(s) prothrombin time 25.3 seconds 12.5-14.3 Above high normal Prothrombi n Time THAD ([facility]) INR normal Inr [facility]AD ([facility]) ID Date Data Source [id number] 07/21/2020 10:24:00 AM EST [facility] ([facility]) Name Value Range Interpretation Code Description Data Joyce rce(s) Supporting Document(s) INR normal Inr [facility]AD ([facility]) prothrombin time 25.5 seconds 12.5-14.3 Above high normal Prothrombi n Time [facility]AD ([facility]) ID Date Data Source [id number] 07/16/2020 12:00:00 AM EST [facility] Scarlet Garrett MD Patient Name: BROOKS HENDRIX [id number] [facility] Date of : 1970Os[place] [id number] Date of Exam: 07/16/2020PH#: Fax: [phone] EXAM: MRI FOOT LEFT WITHOUT CONTRASTCLINICAL INFORMATION: Left fot pain, possible neuroma.3T multiplanar MRI imaging of the left foot was obtained using varioussequences.Original history given 07/16/2020 of possible prior foot and/or ankle MRI'sobtained at either [facility] or [facility]. Multipleattempts have been made in obtaining those [...] post operative as described above.Accredited by the [employer] in MR.MERT Hassan/Hollis mcintyre for referring BROOKS HENDRIX to our office. Electronically Signed - KORY PLATT DO 08/05/20 13:21 Name Value Range Interpretation Code Description Data Joyce rce(s) Supporting Document(s) ID Date Data Source [id number] 07/16/2020 12:11:00 PM EST [facility] ([facility]) Name Value Range Interpretation Code Description Data Joyce rce(s) Supporting Document(s) INR normal Inr [place] ([facility]) prothrombin time 21.1 seconds 12.5-14.3 Above high normal Prothrombi n Time [place] ([facility]) ID Date Data Source [id number] 07/08/2020 12:00:00 AM EST [facility] Name Value Range Interpretation Code Description Data Joyce rce(s) Supporting Document(s) 2019-nCoV RNA XXX RHEA+probe-Imp [facility] This lab was ordered by [facility] and reported by [facility]. ID Date Data Source [id number] 07/07/2020 01:54:00 PM EST [facility] ([facility]) Name Value Range Interpretation Code Description Data Joyce rce(s) Supporting Document(s) INR normal Inr [facility] ([facility]) prothrombin time 23.3 seconds 12.5-14.3 Above high normal Prothrombi n Time [facility] ([facility]) ID Date Data Source [id number] 07/07/2020 01:54:00 PM EST [facility] ([facility]) Name Value Range Interpretation Code Description Data Joyce rce(s) Supporting Document(s) INR normal Inr [facility] ([facility]) prothrombin time 23.3 seconds 12.5-14.3 Above high normal Prothrombi n Time [facility] ([facility]) ID Date Data Source [id number] 07/07/2020 01:54:00 PM EST [facility] ([facility]) Name Value Range Interpretation Code Description Data Joyce rce(s) Supporting Document(s) prothrombin time 23.3 seconds 12.5-14.3 Above high normal Prothrombi n Time [facility] ([facility]) INR normal Inr [facility] ([facility]) ID Date Data Source [id number] 07/07/2020 01:54:00 PM EST [facility] ([facility]) Name Value Range Interpretation Code Description Data Joyce rce(s) Supporting Document(s) INR normal Inr [facility] ([facility]) prothrombin time 23.3 seconds 12.5-14.3 Above high normal Prothrombi n Time [facility] ([facility]) ID Date Data Source [id number] 07/02/2020 12:00:00 AM EST [facility] Maximo HERNANDEZ Patient Name: SIMEONBROOKS [id number] [facility] Date of : 1970uite 201 Date of Exam: 07/02/2020DHARA Pavon [id number]#: Fax: [phone] EXAM: US LEFT EXTREMITY VEINS, [...] the left thigh as describedabove.Accredited by the [employer] in Vascular PeripheralUltrasound.MERT Hassan/Hollis you for referring BROOKS HENDRIX to our office. Olga ctronically Signed - KORY PLATT DO 07/03/20 13:58 Name Value Range Interpretation Code Description Data Joyce rce(s) Supporting Document(s) ID Date Data Source [id number] 06/23/2020 10:58:00 AM EST [facility] ([facility]) Name Value Range Interpretation Code Description Data Joyce rce(s) Supporting Document(s) prothrombin time 25.5 seconds 12.5-14.3 Above high normal Prothrombi n Time [facility] ([facility]) INR normal Inr [facility] ([facility]) ID Date Data Source [id number] 06/23/2020 10:58:00 AM EST [facility] ([facility]) Name Value Range Interpretation Code Description Data Joyce rce(s) Supporting Document(s) prothrombin time 25.5 seconds 12.5-14.3 Above high normal Prothrombi n Time [facility] ([facility]) INR normal Inr [facility] ([facility]) ID Date Data Source [id number] 06/23/2020 10:58:00 AM EST [facility] ([facility]) Name Value Range Interpretation Code Description Data Joyce rce(s) Supporting Document(s) prothrombin time 25.5 seconds 12.5-14.3 Above high normal Prothrombi n Time [facility] ([facility]) INR normal Inr [facility] ([facility]) ID Date Data Source [id number] 06/23/2020 10:58:00 AM EST [facility] ([facility]) Name Value Range Interpretation Code Description Data Joyce rce(s) Supporting Document(s) INR normal Inr [facility] ([facility]) prothrombin time 25.5 seconds 12.5-14.3 Above high normal Prothrombi n Time [facility] ([facility]) ID Date Data Source [id number] 06/23/2020 10:58:00 AM EST [facility] ([facility]) Name Value Range Interpretation Code Description Data Joyce rce(s) Supporting Document(s) prothrombin time 25.5 seconds 12.5-14.3 Above high normal Prothrombi n Time [facility] ([facility]) INR normal Inr [facility] ([facility]) ID Date Data Source [id number] 06/11/2020 01:23:00 PM EST [facility] ([facility]) Name Value Range Interpretation Code Description Data Joyce rce(s) Supporting Document(s) prothrombin time 27.1 seconds 12.5-14.3 Above high normal Prothrombi n Time [facility] ([facility]) INR normal Inr [facility] ([facility]) ID Date Data Source [id number] 06/11/2020 01:23:00 PM EST [facility] ([facility]) Name Value Range Interpretation Code Description Data Joyce rce(s) Supporting Document(s) prothrombin time 27.1 seconds 12.5-14.3 Above high normal Prothrombi n Time [facility] ([facility]) INR normal Inr [facility] ([facility]) ID Date Data Source [id number] 06/11/2020 01:23:00 PM EST [facility] ([facility]) Name Value Range Interpretation Code Description Data Joyce rce(s) Supporting Document(s) INR normal Inr [facility] ([facility]) prothrombin time 27.1 seconds 12.5-14.3 Above high normal Prothrombi n Time [facility] ([facility]) ID Date Data Source [id number] 06/11/2020 01:23:00 PM EST [facility] ([facility]) Name Value Range Interpretation Code Description Data Joyce rce(s) Supporting Document(s) prothrombin time 27.1 seconds 12.5-14.3 Above high normal Prothrombi n Time [facility] ([facility]) INR normal Inr [facility] ([facility]) ID Date Data Source [id number] 06/11/2020 01:23:00 PM EST [facility] ([facility]) Name Value Range Interpretation Code Description Data Joyce rce(s) Supporting Document(s) INR normal Inr [facility] ([facility]) prothrombin time 27.1 seconds 12.5-14.3 Above high normal Prothrombi n Time [facility] ([facility]) ID Date Data Source [id number] 06/11/2020 01:23:00 PM EST [facility] ([facility]) Name Value Range Interpretation Code Description Data Joyce rce(s) Supporting Document(s) prothrombin time 27.1 seconds 12.5-14.3 Above high normal Prothrombi n Time [facility] ([facility]) INR normal Inr [facility] ([facility]) ID Date Data Source [id number] 06/11/2020 01:23:00 PM EST [facility] ([facility]) Name Value Range Interpretation Code Description Data Joyce rce(s) Supporting Document(s) prothrombin time 27.1 seconds 12.5-14.3 Above high normal Prothrombi n Time [facility] ([facility]) INR normal Inr [facility] ([facility]) ID Date Data Source [id number] 06/11/2020 01:23:00 PM EST [facility] ([facility]) Name Value Range Interpretation Code Description Data Joyce rce(s) Supporting Document(s) prothrombin time 27.1 seconds 12.5-14.3 Above high normal Prothrombi n Time [facility] ([facility]) INR normal Inr [facility] ([facility]) ID Date Data Source [id number] 06/11/2020 01:23:00 PM EST [facility] ([facility]) Name Value Range Interpretation Code Description Data Joyce rce(s) Supporting Document(s) prothrombin time 27.1 seconds 12.5-14.3 Above high normal Prothrombi n Time [facility] ([facility]) INR normal Inr [facility] ([facility]) ID Date Data Source [id number] 05/29/2020 10:16:00 AM EDT [facility] ([facility]) Name Value Range Interpretation Code Description Data Joyce rce(s) Supporting Document(s) prothrombin time 23.8 seconds 12.5-14.3 Above high normal Prothrombi n Time [facility] ([facility]) INR normal Inr [facility] ([facility]) ID Date Data Source [id number] 05/29/2020 10:16:00 AM EDT [facility] ([facility]) Name Value Range Interpretation Code Description Data Joyce rce(s) Supporting Document(s) prothrombin time 23.8 seconds 12.5-14.3 Above high normal Prothrombi n Time [facility] ([facility]) INR normal Inr [facility] ([facility]) ID Date Data Source [id number] 05/29/2020 10:16:00 AM EDT [facility] ([facility]) Name Value Range Interpretation Code Description Data Joyce rce(s) Supporting Document(s) prothrombin time 23.8 seconds 12.5-14.3 Above high normal Prothrombi n Time [facility] ([facility]) INR normal Inr [facility] ([facility]) ID Date Data Source [id number] 05/29/2020 10:16:00 [facility] Name Value Range Interpretation Code Description Data Joyce rce(s) Supporting Document(s) prothrombin time 23.8 seconds 12.5-14.3 Above high normal Prothrombi n Time [facility] ([facility]) INR normal Inr [facility] ([facility]) ID Date Data Source [id number] 05/29/2020 10:16:00 AM [facility] Name Value Range Interpretation Code Description Data Joyce rce(s) Supporting Document(s) prothrombin time 23.8 seconds 12.5-14.3 Above high normal Prothrombi n Time [facility] ([facility]) INR normal Inr [facility] ([facility]) ID Date Data Source [id number] 05/26/2020 02:11:00 PM EDT [facility] ([facility] ) Name Value Range Interpretation Code Description Data Joyce rce(s) Supporting Document(s) Surgical pathology study Laboratory test result [facility] ([facility] ) FINAL DIAGNOSIS A-Gastric polyp, biopsy: Gastric [...] MD 05/28/2020 0936 ID Date Data Source [id number] 05/21/2020 12:00:00 PM EDT [facility] Name Value Range Interpretation Code Description Data Joyce rce(s) Supporting Document(s) SARS coronavirus 2 RNA [facility] This lab was ordered by [facility] and reported by [facility]. 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/XmmyA/j4yqbk1E/gm3WWYIeLcdNbbGWn5nmnevtaVMafxV7nZdDjLhB06var/hn/FkhGU otr541ilaqspfbQubcu8NUful+X1UkbbHnLHLrXzU+s0ACPpilgbXGr5JDkcgjGnt2kkSd7pSx5Olc93 co4wIQ8pF2Of6KnWze6p2VMF/YBamr49jiP6EYGGzy QYUCtSjHpzMkZLVHTj1KW2YrvLBrmKXj3kh09DhNS+tYKzIhRtbr6D85AbA2vT1XU/oU6sn3tFs22JCI WOyxJiHvBReiQUvljvaak1CENSmB6j9OTvpCPyu33uFWYgZN6SUuiQcQaPQc8kANY6fuMFeW62KQVe26 X0FrzByw2v2yq2y8uUPziMQFcCsW6ZVmJJw874aAvX rM8MmYF46gVXG5SvIwZ42gGOb4G5deBiWk0uQjIFwWly7U4tmu4DRPvReZ4NfOzXuBtnsaq2ZoIZeyF5 x0HaHlMgvPpEv/uLsxEarv+HGdtC5b2+mFvcyEqS7D765THLW/l7N3qZaJz7Q4pxBnmXeRMAeWtUfb0i 1/tn9ezyH3X+4LzBhSCQB31/slEaIC1pVhLw6exgXb 1PYibe56fe3tIHUIfFtWs5ZuYcc/8Sn2rjnmEBxIATtNW9gb8IrSxq/mMnkquC8XuxntLUYI0fbfhf9Z yvh1eYpzy/qsrp6Kw89q69t/WGrY5ZwsxCK260F3Wu++VQVfuh0806f4mZW49i54Ec3GfrO35epVlafd YkHg324jNaqxwDsB9RV6s7ZTVDpbetUtuLVtbqJDN9 wpbBZjoAqWlpD1V1Tpsua6erOM8n78WjqMX3uI0Uvyjcc/so2wc1zEG68g/qGEKeHFDbxKllTsZ/n0ql tUghAskGEneXZcZ/QIIR1E04tzITWvAzzzmc6qIaqcgDYV2vsnyG0Iy6OI1uqj9/6H404aEd9SVD5op9 RyZWFtDQplbmRvYmoNCjcgMCBvYmoNCiAgPDwNCiAg [file] GH+Frx9yS2Cd8TP7fArct2R4BcKTMEsIxjaAso0A05bDOyLx5Mfknx/E0FWm4GiIyitGyKWGZLsm/PUDDLER PILE DRIVING [file] AgICAgICAgICAgICAgICAgICAgICAgICAgICAgICAg QQZnVMImUHUgFT9IXLObLRXoXJJkFYHvKJCqCUZyIQGnCSDpJWVqVCPdVFBhVCKlSOYrANLbYVVfXIRv OBGdHDEmLVPjEUQzQVYlYWWrKFFjRVVoNEUoCWShIGJlPONdNMHuIVYqIXVeZXWhBRMpNQ2QTJWwCZEz ICAgICAgICAgICAgICAgICAgICAgICAgICAgICAgIC AgICAgICAgICAgICAgICAgICAgICAgICAgICAgICAgICAgICAgICAgICAgICAgICAgICAgICAgICAgIC LwNP8CJYQhOODiBCMeDTOgHYSxGFBiFJXuLFYhZDRbJTBgORSiIKKsMHWrDJElSOYnITFhAJHmVABfAI AgICAgICAgICAgICAgICAgICAgICAgICAgICAgICAg SCWiXDTzVQGeRAZeUB0DKRMpLERbCSUbCNAsNGRoNZFzBEJeZJAsENBxMOMwJKAyNOImXRQuZTOkKTNs HRFrCBJdQANxEBGvAEPjLSDxDWMxHMAiSWPgMJJuEHEuRVUhLJVlANZiWROsEPOdMFSmJBTfOX7HTGWq ICAgICAgICAgICAgICAgICAgICAgICAgICAgICAgIC AgICAgICAgICAgICAgICAgICAgICAgICAgICAgICAgICAgICAgICAgICAgICAgICAgICAgICAgICAgIC IyWFIsTL9HPDGbYWNtRMSkIVXjDPRsBGKrRFRlGNHmCHDbQSPyOCHdHSXnZPMgFXUkJLHhDFLnHDSqXZ AgICAgICAgICAgICAgICAgICAgICAgICAgICAgICAg NCGpXYAsGDRyWHCgTQLjET0XUZZpSIEuGCXkPLApELHrXHRgHPGoYRVfRYRzDJDsMQSpZCUhRAUmMNHr BLVyZEJuERTbOXQpLAOmKSJnBHKsQEEzDUDfABFyPAAfJWSrNJKgRAFoJLFuKTAyWZOsOEQzQVEuTZ6W ICAgICAgICAgICAgICAgICAgICAgICAgICAgICAgIC AgICAgICAgICAgICAgICAgICAgICAgICAgICAgICAgICAgICAgICAgICAgICAgICAgICAgICAgICAgIC YkTPJjSLKoYH7JZEBxZLNtOQNfYDVyJMAfUREqHQGsONVvLPQkZKViNVRzRHVhATQxPNMpYFQbXYIyZN AgICAgICAgICAgICAgICAgICAgICAgICAgICAgICAg VLIfMFCrLUMsUBVrTUOiQOCvCO8DGN08wKCrw7G4ZZVhRY0lcwy/Fj9UEJpjcdBiiUKeIB1FZfWjGY9j fv9GKjNtRJ7cws3WRPaYHqEqD4D7bFHtXFHbWXMFCbWuO88mOPpoNt42WBetDGQgSzCzALt7Ou8EWbSu O5jbHEJfMhW5MZHyGrK5HJFxEoM0CLZjIoIsWSVeUA BvTWQzPVUNSU9RMqEbQ9MsaI89SIRIDy7+PMhfjwEeLhoLChKiAAHem5IiWYx0CX8PGIEgHtneg8UrSl IiFBGBCJqsMV5RQFY8RGXtONFoXg0ETOPuU444haGhSV0UGv0JRjYuMS0fuc6SYpKoLWXeInwITtq6YQ ydBP1ZnIJzRLzOwm5sjoVrzuOUx9GzykOheKFBbTdh lp2yCI1vZt4dX5alOCCNLJNptHOhPL3sHT6qCZMfPPEtIzJzEVKUDG2CYBNaXMZcgAUkOJLkONHWCU0N BTzeLUP6DQOmrgMoePXyPEuoCR3CQSVudcZxQmTnFGHQLIg+Ci5HOW3fz5SuRNnvSzWoQU9zfa6KWTvG UvNvO4D4iUIwE6G7KFqfDe3IIZMpUWPzRjrnWFVLRU ntXR2RCI3szvO6YR3JzLTzXJJmXGEveXKvXTr3E08xcLCpJCpxRD7EEUX+Halle+Au8WAEXgJMXqAKVnFr ZzEGCEGxUjY7DzZ7OCt7UmQ1CuTJ75fSupaxBaAFruSD0MBH1pWJCbNWGPZI1UgAEqjY3gduAtCTMiUV BQUxSiI65irPVpYAEuJFO7SPHdQo9CNEUiS3KhwtUo wCglvuCpMSMxFIBZBW4BHNvfuiRojDZteZjsFM70oZslJK4REn8KGeMhXE7pnl1AcRXtCj2AHSFyVc5W KHOtDPHxTNMiSEA1HDVhNwFvBSvpULXvBPFhAUU7ZAFiPNIiPJ0MQhAjGCMoKCWuNOYrTUCaSEGnjr2M TPKsKAY2ZcHjHaVzIZKfXZZgLDanNJOdZDChEDX3TQ LdXVMsCF7AIuHvVKPpCDL1RuZdLCAcYZPvua7YRHAxIHAdSLBjIHCoUCWxGMHdSBbiXKSbIPN4LgN6ZI KjMCWuNY0RPuJmEQDcOMe5FVfpKEKuYNCdfx1HRXOuGGXxJRl1JRIhISNbXSJwLNquSCPeYHEpRKQ2FR KvXSBcTV3XUhCzNMOfSSN5WYKoWXRxINMcfu1DCHYi AOMoDnrdQtQaQENlXJNvATbhWMGlWRS8EnC4BWRuVEBqEX9WGcSfZWKxTLT9IyTxPVQqSOPqaz6LVWFp QKGeXexfEYNyZILzKLFbAZvnVOXjJYP3EANwSYRhMRMtAI2POjVbZXIyOEokFHCyCZIbFKKotj9HYOCn SUIyHIO0ZXHfZRStPDPhNVlzXYVuZDZ4YwU9OQReDG FvUU7NEiCgRMYaXOt5VGDeYPDwRMSxrf7NKOBhNPA4FcC4OAYrMOExLCYjSUevFPFmQHRtZdY2XEOeVY IyCJ8NTiSmNKPgTSB2DIOxCYEkWSUdqf3DHFDuTSX9CelfZTVyZPJdDSIcEPpmWCRdQOZlOJKhWBZuVI LyBS7XJuUlSGPeWWE3LASwDJMgMVWjgq7XUWIwAWI7 WJE3DbOiRTPhCEVvRAmvTDNsENY1NhvpWBDhEVUjAS7LSvTiTHEfKCY2DTxnLFYbXRHyia7TDYVdBVZ1 MfE2DNBoQFTkSOStHXxzFDPcWCA3FjPnSMAcSNWsNG1LDwPxQEQtLPotOjRsVCVuOBBpub2AxBKtjBdd qn6FPYjXEp4WbAkiQJGoEHljId5moJZxBcUlMDOKGr 2FgnElHCRiOZJUWUiqMIIeDCH3I7JbCPE1SUlkAnT5MVHmELiaKeaxFQKvXJDkUxO2MtO3YHx2XWNaIW K0EJRnCDCqRwXnTPMvZVT5E2IxNrNiAAL+HP9rZPj+Ql1Pd3BxifR8joLlKUm8IwFlIT1OTQEUB9IIIk == ID Date Data Source [id number] 04/25/2020 11:34:31 AM EDT [facility] Measurements & CalculationsHeight: 68 inches [...] (ER) or urgent care clinic? Yes - [facility] (ultrasound of L leg)Emergency room (ER) [...] or Preferred Language: EnglishFamily and Home Address: [address] [place] [address] What is your housing situation today? I [...] really needed? Denies Insecurity: food, utilities, clothing, early childhood educator aide, phone, legal services, otherWithin the past year [...] 2 nights in a row in a half-way, custodial, fci center or juvenile correctional facility? No Has [...] you a refugee? No (Country of origin: [facility]) Do you feel physically and emotionally safe [...] to establish care. Feeling well overall. 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 She is feeling well. No bowel or bladder concerns. She had a mammo this summer, report in previous PCP records. Has an upcoming pelvic exam at AUDIOPROSTHOLOGIST. Upper endoscopy and colonscopy in the process of being scheduled through GI. Gets her flu shot annually through rheumatology. Has had her pneumonia and shingles vaccine. 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 She does note she has struggled [...] during this visit, including review of any gapd-zkw-lkfwvfo medications, herbal therapies, and/or supplements.Allergy ReviewAllergy List [...] & Plan Problems:Added: MORBID OBESITY (ICD- 278.01) (VMY64-E71.01)BMI 50.0-59.9 (ICD-V85.43) (ZDT45-R26.43)Systemic lupus erythematosus, unspecified (GWY99-N97.9)Vitamin D deficiency, unspecified (BZH88-Z11.9)Gastro-esophageal reflux disease without esophagitis (ICD-530.81) (GWD30-C67.9)Unspecified asthma, uncomplicated (QOF20-Z38.909)Hypothyroidism, unspecified (PIU86-Z28.9)Major depressive disorder, recurrent, unspecified (RUD50-R52.9)Encounter for other general examination (DJF75-C08.8) Assessment: records requested from specialists. pt is doing well. most chronic conditions managed through specialty clinics. will get routine labs and schedule for physical.Assessment not SavedMajor depressive disorder; recurrent; unspecified (CUP29-F82.9): will restart citalopram, refer to counseling. discussed [...] FISH OIL 1000 MG ORAL CAPSULE Qty: [phone] To: B-2 100 MG ORAL TAB LET-Take 2 PO twice dailyFrom: ORAL HYDROXYCHLOROQUINE SULFATE 200 MG ORAL TABLET Qty: [id number] To: HYDROXYCHLOROQUINE SULFATE 200 MG ORAL TABLET-1 tablet once a dayAllergies:* ZINISIMIDE (Severe)* IMIPRAMINE (Moderate)DOXYCYCLINE (Moderate)ERYTHROMYCIN (Moderate)METHOTREXATE (Moderate)* ULTRAM (Moderate)* TOPAMAX (Moderate)Orders:COMP METABOLIC PANEL [CPT-95252] LIPID PANEL [CPT-25984] TSH [CPT-90997] Vitamin D 250H Unspecified [CPT-74094] HgBA1c [CPT-15054] Adult - Ofc Vst, NEW, Level IV [CPT-57557] Mental Health Consult [CPT-96814] Follow-Up Return to clinic: in 30 days for preventive care visitClinical Visit Summary DeclinedMedications:CITALOPRAM HYDROBROMIDE 20 MG ORAL TABLET (CITALOPRAM HYDROBROMIDE) 1 tablet once daily #30[Tablet] x 1 Route:ORAL Entered and Authorized by: Keke HERNANDEZ Method used: Electronically to [facility] (retail) [address] [place] [address] Note to Pharmacy: Route: ORAL; RxID: [id number] signed by Keke HERNANDEZ on 04/25/2020 at 2:02 PM Name Value Range Interpretation Code Description Data Joyce rce(s) Supporting Document(s) ID Date Data Source [id number] 04/23/2020 02:58:44 PM EDT [facility] Patient History Medical History:Morbid O [...] rce(s) Supporting Document(s) ID Date Data Source [id number] 04/19/2020 09:53:05 AM EDT [facility] Name Value Range Interpretation Code Description Data Joyce rce(s) Supporting Document(s) Progress Note [facility] RJRFHs6wRuGDOjIr35/PWUwnMSVue8MxGJyhDIt3XBpsJGAuQ7HrIOO6fP6eGNQ7AOiDAyAbLvJjAMX7 [facility] [file] ID Date Data Source [id number] 04/14/2020 01:10:00 PM EDT [facility] ([facility] Name Value Range Interpretation Code Description Data Joyce rce(s) Supporting Document(s) Prothrombin Time 27.5 s 11.8-14.0 Above high normal M [facility] ([facility] Inr 2.49 Normal (applies to non-numeric resul ts) [facility] ([facility] THERAPUTIC HUMAN INR VALUES INDICATIONS NORMAL RANGES PROPHYLAXIS/TREATMENT OF: VENOUS THROMBOSIS 2.0-3.0 PULMONARY EMBOLISM 2.0-3.0 PREVENTION OF SYSTEMIC EMBOLISM FROM: TISSUE HEART VALVES 2.0-3.0 ACUTE MYOCARDIAL INFARCTION 2.0-3.0 VALVULAR HEART DISEASE 2.0-3.0 ATRIAL FIBRILLATION 2.0-3.0 MECHANICAL VALVES(HIGH RISK) 2.5-3.5 RECURRENT MYOCARDIAL INFARCTION 2.5-3.5 ID Date Data Source [id number] 04/14/2020 01:08:00 PM EDT [facility] ([facility] Name Value Range Interpretation Code Description Data Joyce rce(s) Supporting Document(s) Blood Urea Nitrogen 17 mg/dL 7-18 Normal (applies to non-nume elías results) [facility] ([facility] Glucose, Fasting 86 mg/dL 70-100 Normal (applies to non-numeric results) [facility] ([facility] Glomerular Filtration Rate Laboratory test result Normal (applies to non- numeric results) [facility] ([facility] ) <content>Units are mL/min/1.73 m2</content>
<content></content>
<content>Chronic Kidney Disease Staging per NKF:</content>
<content></content>
<content>Stage I & II GFR >=60 Normal to Mildly Decreased</content>
<content>Stage III GFR 30- 59 Moderately Decreased</content>
<content>Stage IV GFR 15-29 Severely Decreased</content>
<content>Stage V GFR <15 Very Little GFR Left</content>
<content>ESRD GFR <15 on VP PURCHASING</content>
<content></content> Creatinine For GFR 0.85 mg/dL 0.55-1.30 [...] meq/L 8-16 Below low normal [facility] ( [facility] Alt/SGPT 21 U/L 12-78 Normal (applies to non-numeric resul ts) [facility] ([facility] Total Protein 7.3 GM/DL 6.4-8.2 Normal (applies to non-numeric re sults) [facility] ([facility] Alkaline Phosphatase 68 U/L 45-117 Normal (applies to non-num trish results) [facility] ([facility] Bilirubin,Total 0.3 mg/dL 0.2-1.0 Normal (applies to non-numeric results) [facility] ([facility] Albumin 3.4 GM/DL 3.2-5.2 Normal (applies to non-numeric resul ts) [facility] ([facility] Albumin/Globulin Ratio 0.9 1.2-2.2 Below low normal [facility] ([facility] ID Date Data Source [id number] 04/14/2020 01:08:00 PM EDT [facility] ([facility] Name Value Range Interpretation Code Description Data Joyce rce(s) Supporting Document(s) White Blood Count 4.1 10 4.0-10.0 Normal (applies to non-numeri c results) [facility] ([facility] Hemoglobin 12.7 g/dL 12.0-15.5 Normal (applies to non-numeric resul ts) [facility] ([facility] Red Blood Count 4.97 10 4.00-5.40 Normal (applies to non-numeric results) [facility] ([facility] Hematocrit 40.1 % 36.0-47.0 Normal (applies to non-numeric resul ts) [facility] ([facility] Red Cell Distribution Width 14.3 % 11.5-14.5 Norm al (applies to non-numeric results) [facility] ([facility] ) Mean Corpuscular Volume 80.7 fl 80.0-96.0 Normal ( applies to non-numeric results) [facility] ([facility] ) Mean Corpuscular Hemoglobin 25.6 pg 27.0-33.0 Below low normal [facility] ([facility] Mean Corpuscular HGB Conc 31.7 g/dL 32.0-36.5 Below low normal [facility] ([facility] Neutrophils % 69.7 % 36.0-66.0 Above high normal [facility] ([facility] Lymph % 19.3 % 24.0-44.0 Below low normal [facility] ( [facility] Platelet Count, Automated 158 10 150-450 Normal (applies to non-numeric results) [facility] ([facility] ) Baso % 0.2 % 0.0-1.0 Normal (applies to non-numeric resul ts) [facility] ([facility] [place] % 7.6 % 0.0-5.0 Above high normal [facility] ([facility] [facility] Eos % 2.7 % 0.0-3.0 Normal (applies to non-numeric resul ts) [facility] ([facility] Lymph # 0.8 10 1.5-5.0 Below low normal [facility] ( [facility] Nucleated Red Blood Cell % 0.0 % 0-0 Normal (applies to n on-numeric results) [facility] ([facility] Neutrophils # 2.9 10 1.5-8.5 Normal (applies to non-numeric re sults) [facility] ([facility] Immature Granulocyte % 0.5 % 0-3.0 Normal (applies to non-n umeric results) [facility] ([facility] Eos # 0.1 10 0.0-0.5 Normal (applies to non-numeric resul ts) [facility] ([facility] Baso # 0.0 10 0.0-0.2 Normal (applies to non-numeric resul ts) [facility] ([facility] [place] # 0.3 10 0.0-0.8 Normal (applies to non-numeric resul ts) [facility] ([facility] ID Date Data Source [id number] 04/03/2020 12:38:00 PM EDT [facility] [address] [place] [address] PHONE: [phone] FAX: [phone] Name .................. : SIMEON GUY Acct Number.................. : [id number] ROOM. ................. : Number ................... : [id number] Stay type ............. : O/P Discharge Date......... ... : 04/01/20 Admit Date ......... : 04/01/20 Admit Phys .................... : NARCISA VELASQUEZ Date of ....... : 1970 Family Phys ................... : [facility] Phone .................. : [phone] Age ................................ : 50 Film# .................. .:[id number] Sex ................................. : F Unsigned transcriptions are preliminary reports and do not represent a medical or legal document [place] [id number] COMPLETE:04/01/20 16:13 KNB [id number] (REASON FOR PROCESS: PAIN RIGHT LOWER EXTREMITY [...] for: NARCISA BONILLA via fax Copy for: [address] [place] [address] REC Page 1 of 1 Name Value Range Interpretation Code Description Data Joyce rce(s) Supporting Document(s) ID Date Data Source [id number] 03/31/2020 05:18:00 PM EDT [facility] ([facility] Name Value Range Interpretation Code Description Data Joyce rce(s) Supporting Document(s) Prothrombin Time 29.1 s 11.8-14.0 Above high normal M [facility]ENT ([facility] Inr 2.68 Normal (applies to non-numeric resul ts) [facility] ([facility] THERAPUTIC HUMAN INR VALUES INDICATIONS NORMAL RANGES PROPHYLAXIS/TREATMENT OF: VENOUS THROMBOSIS 2.0-3.0 PULMONARY EMBOLISM 2.0-3.0 PREVENTION OF SYSTEMIC EMBOLISM FROM: TISSUE HEART VALVES 2.0-3.0 ACUTE MYOCARDIAL INFARCTION 2.0-3.0 VALVULAR HEART DISEASE 2.0-3.0 ATRIAL FIBRILLATION 2.0-3.0 MECHANICAL VALVES(HIGH RISK) 2.5-3.5 RECURRENT MYOCARDIAL INFARCTION 2.5-3.5 ID Date Data Source [id number] 03/31/2020 05:14:00 PM EDT [facility] ([facility] Name Value Range Interpretation Code Description Data Joyce rce(s) Supporting Document(s) Glucose, Fasting 106 mg/dL 70-100 Above high normal M [facility]ENT ([facility] Glomerular Filtration Rate Laboratory test result Normal (applies to non- numeric results) [facility] ([facility] ) <content>Units are mL/min/1.73 m2</content>
<content></content>
<content>Chronic Kidney Disease Staging per NKF:</content>
<content></content>
<content>Stage I & II GFR >=60 Normal to Mildly Decreased</content>
<content>Stage III GFR 30- 59 Moderately Decreased</content>
<content>Stage IV GFR 15-29 Severely Decreased</content>
<content>Stage V GFR <15 Very Little GFR Left</content>
<content>ESRD GFR <15 on VP PURCHASING</content>
<content></content> Creatinine For GFR 0.90 mg/dL 0.55-1.30 Normal (applies to non -numeric results) [facility] ([facility] Blood Urea Nitrogen 11 mg/dL 7-18 Normal (applies to non-nume elías results) [facility] ([facility] Sodium Level 141 meq/L 136-145 Normal (applies to non-numeric res ults) [facility] ([facility] Potassium Serum 3.7 meq/L 3.5-5.1 Normal (applies to non-numeric results) [facility] ([facility] Chloride Level 106 meq/L 98-107 Normal (applies to non-numeric r esults) [facility] ([facility] Carbon Dioxide Level 29 [...] [facility] ID Date Data Source [id number] 03/31/2020 05:14:00 PM EDT [facility] ([facility] Name Value Range Interpretation [...] 14.6 % 11.5-14.5 Above high normal [facility] ([facility] Eos % 2.2 % 0.0-3.0 Normal (applies to non-numeric resul ts) [facility] ([facility] Baso % 0.2 % 0.0-1.0 Normal (applies to non-numeric resul ts) [facility] ([facility] [place] % 6.3 % 0.0-5.0 Above high normal [facility] ([facility] Immature Granulocyte % 0.4 [...] resul ts) [facility] ([facility] [place] # 0.3 10 0.0-0.8 Normal (applies to non-numeric resul ts) [facility] ([facility] ID Date Data Source [id number] 03/21/2020 12:00:00 AM EDT [facility] ology Imaging Scarlet Garrett MD Patient Name: SHERIN HENDRIX [facility] Date of : 1970[place] [address] Date of Exam: 03/21/2020#: Fax: [phone] EXAM: [...] Other findings as described above.Accredited by the [employer] in MRMERT Rico/Hollis you for referring BROOKS HENDRIX to our office. Electronically Signed - KORY PLATT DO 03/26/20 15:04 Name Value Range Interpretation Code Description Data Joyce rce(s) Supporting Document(s) ID Date Data Source [id number] 03/17/2020 10:57:00 PM EDT [facility] 1 OrderSheet [facility] Emergency Department [address] [place] [address] Phone #: ext- [phone] 03/17/2020 22:30 Patient: BROOKS HENDRIX Sex: F [...] rce(s) Supporting Document(s) ID Date Data Source [id number] 03/17/2020 10:57:00 PM EDT [facility] 1 Medication Reconciliation Report [facility] Emergency Department [address] [place] [address] Phone #: ext- [phone] 03/17/2020 22:30 Patient: BROOKS HENDRIX Sex: F [...] capsule, daily Fish Oil + D3 Oral ([id number] mg-unit) 1 capsule, daily Flonase Allergy Relief Nasal, daily Levothyroxine Sodium Oral (100 mcg) 1 tablet, daily Magnesium Oral 400 mg, daily Methocarbamol Oral (500 mg) 1 tablet, prn Potassium Oral 1 tablet, 2x a day predniSONE Oral (5 mg) 1 tablet, daily Riboflavin Oral (100 mg) 2 tablets, 2x a day Symbicort Inhalation, 2x a day 2 Medication Reconciliation Report [facility] Emergency Department [address] [place] [address] Phone #: ext- [phone] 03/17/2020 22:30 Patient: [...] rce(s) Supporting Document(s) ID Date Data Source [id number] 03/17/2020 10:57:00 PM EDT [facility] 1 Medication Administration Record [facility] Emergency Department [address] [place] [address] Phone #: ext- [phone] 03/17/2020 22:30 Patient: BROOKS HENDRIX Sex: F : 1970 Age: 50yWeight: 149.6 kgHeight/Length: 68 inBMI: 50.2ALLERGIES: Bactrum, Imipramine, Doxycylin, Erythromycin, Methotrexate, Topamax, UltramDate/Time Medication Administered Medication Ordered Name Value Range Interpretation Code Description Data Joyce rce(s) Supporting Document(s) ID Date Data Source [id number] 03/17/2020 10:57:00 PM EDT [facility] 1 General Instructions [facility] Emergency Department [address] [place] [address] Phone #: [phone]- [phone] 03/17/2020 22:30 Patient: BROOKS HENDRIX Sex: F [...] daily.Fish Oil + D3 Oral : Capsule [id number] mg-unit, 1 capsule daily.Flonase Allergy Relief Nasal [...] course of illness, discharge 2 General Instructions [facility] Emergency Department [address] [place] [address] Phone #: ext- [phone] 03/17/2020 22:30 Patient: [...] is a problem, you may use an lqmm-rnd-hdyyafz anti-itch spray or cream, such as any [...] face or genital area. 3 General Instructions [facility] Emergency Department [address] [place] [address] Phone #: ext- [phone] 03/17/2020 22:30 Patient: [...] when mosquitoes are most active in the quality assurance manager, late afternoon and early evening. If you [...] the following as alternate mosquito repellents: picaridin, [id number], and the plant-based oil of lemon eucalyptus. [...] Dizziness, weakness or fainting 4 General Instructions [facility] Emergency Department [address] [place] [address] Phone #: [phone]- [phone] 03/17/2020 22:30 Patient: BROOKS HENDRIX Sex: F : 1970 Age: 50y Headache, fever, chills, muscle or joint aches, or vomiting New rash Signs of infection: o Spreading redness o Increased pain or swelling o Fever of 100.4F (38C) or higher, or as directed by your healthcare provider o Colored fluid draining from the wound [phone] [employer]. [address] [place] [address]. All rights reserved. This information is not [...] cartilage may be the 5 General Instructions [facility] Emergency Department [address] [place] [address] Phone #: ext- [phone] 03/17/2020 22:30 Patient: [...] the skin. If you were given a vjhy-qur-rhai knee brace, you may open the brace to apply ice. Unless told otherwise, you may remove the brace to bathe and sleep. You may use dkgu-afv-idxhcby pain medicine to control pain, unless another [...] calf or lower leg Fever or chills [phone] [employer]. [address] [place] [address]. All rights reserved. This information is not intended as asubstitute for professional medical care. Always follow your healthcare professional's instructions. 6 General Instructions [facility] Emergency Department [address] [place] [address] Phone #: ext- [phone] 03/17/2020 22:30 Patient: BROOKS HENDRIX Sex: F : 1970 Age: 50yYou have been given the following additional information:Mosquito BiteBaker's Cyst(Electronically signed by Sneha Villalobos M.D. 03/18/2020 00:18) Name Value Range Interpretation Code Description Data Joyce rce(s) Supporting Document(s) ID Date Data Source [id number] 03/17/2020 10:57:00 PM EDT [facility] 1 Clinical Report - Nurses [facility] Emergency Department [address] [place] [address] Phone #: ext- [phone] 03/17/2020 22:30 [id number] Sex[facility] F : 1970 Age: 50yTRIAGE Historian: [...] gait. Pt reports she was at a [facility] Tuesday night.). No fever or cough. Not burning. Treatment DIPLOMA MAKER: None. SEPSIS SCREEN: Sepsis Screen negative. No [...] R.N. Fish Oil + D3 Oral (Capsule 9198-6158 mg-unit) 1 capsule, daily. --22:38 03/17/20 Saranya [...] Wills R.N. 2 Clinical Report - Nurses [facility] Emergency Department [address] [place] [address] Phone #: ext- [phone] 03/17/2020 22:30 Patient: [...] surgery (left).Gallbladder Surgery.Hernia Repair.Hysterectomy.Tonsillectomy. --22:43 03/17/20 Saranya Wills R.N.HistoryPAST MEDICAL HX: Immunizations: up-to-date. The patient [...] killing yourself?". 3 Clinical Report - Nurses [facility] Emergency Department [address] [place] [address] Phone #: ext- [phone] 03/17/2020 22:30 Patient: [...] Patient returned from sonogram by wheelchair with radiology therapist. --23:53 03/17/20 Saranya Wills R.N.DISPOSITION / DISCHARGE No learning barriers present. Reviewed warnings. Reviewed medication(s). Treatments reviewed. Patient verbalized understanding. Written instructions provided in Sami. The patient was discharged home and unaccompanied at time of discharge. She left ambulatory and via private vehicle. Patient driving. --00:17 03/18/20 Saranya Wills R.N. 00:17 03/18/20. BP: 129/78. MAP: 95. HR: 89. RR: 18. O2 saturation: 98%. Temp: 98.6 F. Pain level now: 0/10. --00:17 03/18/20 Saranya Wills R.N. 4 Clinical Report - Nurses [facility] Emergency Department [address] [place] [address] Phone #: ext- [phone] 03/17/2020 22:30 Patient: BROOKS HENDRIX Sex: F : 1970 Age: 50yLocked/Released at 03/18/2020 00:18 by Saranya Wills R.N. Name Value Range Interpretation Code Description Data Joyce rce(s) Supporting Document(s) ID Date Data Source [id number] 03/17/2020 10:57:00 PM EDT [facility] 1 Clinical Report - Physicians/Mid Levels [facility] Emergency Department [address] [place] [address] Phone #: ext- [phone] 03/17/2020 22:30 Patient: [...] had a recent insect bite. (was at [facility] nights ago, had multiple insect/mosquito [...] Hysterectomy. 2 Clinical Report - Physicians/Mid Levels [facility] Emergency Department [address] [place] [address] Phone #: ext- [phone] 03/17/2020 22:30 ---- Patient: BROOKS HENDRIX [facility]#: [id number] Sex: F : 1970 Age: 50y Tonsillectomy. [...] daily. Fish Oil + D3 Oral (Capsule [id number] mg- unit) 1 capsule, daily. Calcium Citrate [...] supple. 3 Clinical Report - Physicians/Mid Levels [facility] Emergency Department [address] [place] [address] Phone #: ext- [phone] 03/17/2020 22:30 [id number] Sex: F : 1970 Age: 50y CVS: [...] US DOPPLER UNILATERAL VENOUS LEG LT INSTITUTION: [facility] ORDERING PHYSICIAN: Sneha Villalobos PATIENT HISTORY: ULTRASOUND [...] Impression 4 Clinical Report - Physicians/Mid Levels [facility] Emergency Department [address] [place] [address] Phone #: ext [phone] 03/17/2020 22:30 Patient: BROOKS HENDRIX Sex: F : 1970 Age: 50yNo evidence of deep venous thrombosis in the visualized left lower extremity veins.Electronically signed on Mar 17, 2020 11:57:21 PM EDT by:Aurea House, [employer]. Study type: utilized duplex sonography. The exam wasperformed by a natural resources technician. The study was interpreted by the [...] 2.0) 5 Clinical Report - Physicians/Mid Levels [facility] Emergency Department [address] [place] [address] Phone #: ext- [phone] 03/17/2020 22:30 Patient: [...] Male GFR Interprentation 20-49 yrs >60 mL/min Ungqfd84-34 yrs >56 mL/min Normal 60-69 yrs >49 mL/min Normal 70-79yrs>42 mL/min Normal 80 and above >35 mL/min Normal Female GFRInterpretation 20-39 yrs >60 mL/min Normal 40-49 yrs >58 mL/minNormal 50-59 yrs >51 mL/min Normal 60-69 yrs >45 mL/min Iofdwt07-60 yrs >39 mL/min Normal 80 and above >32 mL/min NormalPT/PTT: (FATEMEH: 03/17/2020 23:17) ( [facility] 03/17/2020 23:45) Final results Test Result Flag Units (Reference) PROTIME 26.8 H SECONDS (11.0 - 15.5) INR 2.43 H (0.93 - 1.23) PTT 38.5 H SECONDS (24.8 - 36.7) \\BLDo\\INR INTERPRETATION\\BLDx\\ Therapeutic range for Coumadin andrelated oral anticoagulants. -International Normalized Ratio (INR): 2.0 - 3.0 for VenousThrombosis, Pulmonary Embolus, Tissue heart valves, Acute ME Atrial Fibrillation, Valvular heart diseaseand recurrent Systemic Embolism. -International Normalized Ratio (INR): 2.5 - 3.5 forMechanical Prosthetic valve.D-Dimer: ( FATEMEH: 03/17/2020 23:17) ( MsgRcvd 03/17/2020 23:45) Final results Test Result Flag Units (Reference) D-DIMER QUANT <0.27 ug/mL (0.27 - 0.50)US Lower Ext Venous Left: (FATEMEH: 03/17/2020 23:05) ( MsgRcvd 03/17/2020 23:58) Final results Exam US [place]OPPLER [place] [address] ---------NAME--------- NUMBER SEX AGE ADMIT DISC. XRAY# F/C TYPE PARKINSON BROOKS [id number] F 50 03/17/20 [id number] NA E/R DATE OF : 1970 M/R# [id number] #: [id number] TR-05 LOCATION: EMERGENCY DEPT TRANSCRIBED: 03/17/20 23:57 IF US DOPPLER UNILATERAL VENOUS [id number] COMPLETED:03/17/20 23:47 ADB [id number] Reason(s): Pain, Limb Swelling, Limb PHYSICIAN: ALLEN VERA R A D I O L O G Y R E P O R T PATIENT HISTORY: US DOPPLER UNILATERAL VENOUS LEG LT ULTRASOUND LEFT LOWER EXTREMITY DOPPLER VENOUS COMPARISON: None HISTORY: US DOPPLER UNILATERAL VENOUS LEG LT 6 Clinical Report - Physicians/Mid Levels [facility] Emergency Department [address] [place] [address] Phone #: ext- [phone] 03/17/2020 22:30 Patient: [...] knee.INSTRUCTIONS 7 Clinical Report - Physicians/Mid Levels [facility] Emergency Department [address] [place] [address] Phone #: ext- [phone] 03/17/2020 22:30 Patient: [...] Fish Oil + D3 Oral : Capsule 7646-2863 mg-unit, 1 capsule daily. Flonase Allergy Relief [...] rce(s) Supporting Document(s) ID Date Data Source [id number] 03/17/2020 11:57:00 PM EDT [facility] [address] [place] [address] ---------NAME--------- NUMBER SEX AGE ADMIT DISC. XRAY# F/C TYPE PARKINSON BROOKS [id number] F 50 03/17/20 [id number] NA E/R DATE OF : 1970 M/R# [id number] #: [id number] TR-05 LOCATION: EMERGENCY DEPT TRANSCRIBED: 03/17/20 23:57 IF US DOPPLER UNILATERAL VENOUS [id number] COMPLETED:03/17/20 23:47 ADB [id number] Reason(s): Pain, Limb Swelling, Limb PHYSICIAN: ALLEN [...] Name Value Range Interpretation Code Description Data Joyec rce(s) Supporting Document(s) ID Date Data Source [id number] 03/17/2020 11:17:00 PM EDT [facility] Name Value Range Interpretation Code Description Data Joyce rce(s) Supporting Document(s) Sodium 135 meq/L 134-153 [facility] Comprehensive Metabo Laboratory test result [facility] ([facility] COMPREHENSIVE METABOLIC PANEL Glucose 108 mg/dL 65-110 [facility] ([facility] Co2 24 meq/L 22-30 [facility] ([facility] Potassium 3.7 meq/L 3.6-5.0 [facility] ([facility] Chloride 101 meq/L 98-107 [facility] ([facility] Creatinine 0.9 mg/dL 0.7-1.5 [facility] ([facility] BUN/Creat 17 8-27 [facility] ([facility] BUN 15 mg/dL 7-21 [facility] ([facility] Total Protein 7.3 g/dL 6.3-8.2 [facility] ([facility] Globulin 3.3 GM/DL 2.4-3.2 Above high normal [facility] ([facility] Albumin 4.0 g/dL 3.9-5.0 [facility] ([facility] A/G Ratio 1.2 0.8-2.0 [facility] ([facility] Sgot/Ast 16 U/L 5-40 [facility] ([facility] Alkaline Phos 70 U/L 38-126 [facility] ([facility] Total Bili Laboratory test result 0.2-1.3 ME DENT ([facility] Calcium 8.9 mg/dL 8.4-10.2 [facility] Anion Gap 10.0 mmol/L 8.0-16.0 [facility] ([facility] SGPT/Alt 15 U/L 7-56 [facility] Age 50 yrs [facility] ([facility] Afr Amer GFR Laboratory test result [facility] ([facility] Male GFR Interprentation 20-49 yrs [...] Non-Aa GFR Laboratory test result ME DENT ([facility] ID Date Data Source [id number] 03/17/2020 11:17:00 PM EDT [facility] ([facility] Name Value Range Interpretation Code Description Data Joyce rce(s) Supporting Document(s) Fibrin D-dimer [Presence] in Platelet poor plasma Laboratory test result 0.27-0.50 [facility] ID Date Data Source [id number] 03/17/2020 11:17:00 PM EDT [facility] ([facility] Name Value Range Interpretation Code Description Data Joyce rce(s) Supporting Document(s) Protime 26.8 s 11.0-15.5 Above high normal [facility] ([facility] Inr 2.43 0.93-1.23 Above high normal [facility] ([facility] PTT 38.5 s 24.8-36.7 Above high normal [facility] ([facility] \\BLDo\\INR INTERPRETATION\\BLDx\\ Therapeutic range for Coumadin and related oral anticoagulants. -International Normalized Ratio (INR): 2 .0 - 3.0 for Venous Thrombosis, Pulmonary Embolus, Tissue heart valves, Acute ME Atrial Fibrillation, Valvular heart disease and recurrent Systemic Embolism. -International Normalized Ratio (INR): 2 .5 - 3.5 for Mechanical Prosthetic valve. ID Date Data Source [id number] 03/17/2020 11:17:00 PM EDT [facility] ([facility] Name Value Range Interpretation Code Description Data Joyce rce(s) Supporting Document(s) CBC W/Automated Diff Laboratory test result [facility] ([facility] COMPLETE BLOOD COUNT RBC 4.95 10^6/uL 4.20-5.40 [facility] WBC 4.7 10^3/uL 4.2-11.0 [facility] Hemoglobin 12.3 g/dL 12.0-16.0 [facility] MCV 79.0 fL [...] [facility] Platelets 174 10^3/uL 150-450 [facility] MPV 8.8 fL 7.4-10.4 [facility] Lymph 13.8 % 25.0-40.0 Below low normal [facility] ( [facility] Neut 77.1 % 37.0-80.0 [facility] [place] 6.0 % 3.0-8.0 [facility] %Ig 0.4 % 0.0-0.0 Above high normal [facility] Baso 0.4 % 0.0-2.5 [facility] %NRBC 0.0 % 0.0-0.0 [facility] Eos 2.3 % 0.0-7.0 [facility] #Lymph 0.65 10^3/uL 0.60-3.40 [facility] #Neut 3.62 10^3/uL 2.00-6.90 [facility] #Rutherford 0.28 10^3/uL 0.00-0.90 [facility] ([facility] #Ig 0.02 10^3/uL 0.00-0.10 [facility] ([facility] #Baso 0.02 10^3/uL 0.00-0.20 [facility] ([facility] #NRBC 0.00 10^3/uL 0.00-0.00 [facility] #Eos 0.11 10^3/uL 0.00-0.70 [facility] RBC Morph Laboratory test result ME ALLI ([facility] Manual Diff Laboratory test result M RAVEN ([facility] ID Date Data Source [id number] 03/17/2020 11:45:00 PM EDT [facility] Name Value Range Interpretation Code Description Data Joyce rce(s) Supporting Document(s) COMPREHENSIVE METABOLIC PANEL [facility] COMPREHENSIVE METABOLIC PANEL Sodium [Moles/volume] in Serum or Plasma 135 mEq/L 134 - 153 [facility] Potassium [Moles/volume] in Serum or Plasma 3.7 mEq/L 3.6 - 5.0 [facility] Chloride [Moles/volume] in Serum or Plasma 101 mEq/L 98 - 107 [facility] Carbon dioxide, total [Moles/volume] in Serum or Plasma 24 MEQ/L 22 - 30 [facility] Glucose [Mass/volume] in Serum or Plasma 108 MG/DL 65 - 110 [facility] BUN 15 MG[facility]DL 7 - [facility] Creat[facility] [Mass/volume] in Serum or Plasma 0.9 MG/DL 0.7 - 1.5 [facility] BUN/CREAT 17 8 - 27 [facility] Protein [Mass/volume] in Serum or Plasma 7.3 G/DL 6.3 - 8.2 [facility] Albumin [Mass/volume] in Serum or Plasma 4.0 G/DL 3.9 - 5.0 [facility] Globulin [Mass/volume] in Serum by calculation 3.3 GM/DL 2.4 - 3.2 H [facility] A/G RATIO 1.2 0.8 - 2.0 [facility] Calcium [Mass/volume] in Serum or Plasma 8.9 MG/DL 8.4 - 10.2 [facility] Bilirubin.total [Mass/volume] in Serum or Plasma <0.7 MG/DL 0.2 - 1.3 [facility] Alkaline phosphatase [Enzymatic activity/volume] in Serum or Plasma 70 U/L 38 - 126 [facility] Aspartate aminotransferase [Enzymatic activity/volume] in Serum or Plasma 16 U/L 5 - 40 [facility] Alanine aminotransferase [Enzymatic activity/volume] in Seru m or Plasma 15 U/L 7 - 56 [facility] Anion gap 3 in Serum or Plasma 10.0 mmol/L 8.0 - 16.0 [facility] 50 [facility]60 mL/min [facility] ital AFR AMER GFR >60 mL/min [facility] Ho spital Male GFR In terprentation 20-49 [...] >32 mL/min Normal ID Date Data Source [id number] 03/17/2020 11:45:00 PM EDT [facility] Name Value Range Interpretation Code Description Data Joyce rce(s) Supporting Document(s) Fibrin D-dimer FEU [Mass/volume] in Platelet poor plasma <0. 27 ug/mL 0.27 - 0.50 [facility] ID Date Data Source [id number] 03/17/2020 11:45:00 PM EDT [facility] Name Value Range Interpretation Code Description Data Joyce rce(s) Supporting Document(s) Prothrombin time (PT) 26.8 SECONDS 11.0 - 15.[address] [facility] INR in Platelet poor plasma by Coagulation assay 2.43 0.93 - 1. 23 H [facility] aPTT in Blood by Coagulation assay 38.5 SECONDS 24.8 - 36.7 H [facility] \\BLDo\\INR INTERPRETATION\\BLDx\\ Therapeutic range for Coumadin and related oral anticoagulants. - International Normalized Ratio (INR): 2.0 - 3.0 for Venous Thrombosis, Pulmonary Embolus, Tissue heart valves, Acute ME Atrial Fibrillation, Valvular heart disease and recurrent Systemic Embolism. - International Normalized Ratio (INR): 2.5 - 3.5 for Mechanical Prosthetic valve. ID Date Data Source [id number] 03/17/2020 11:23:00 PM EDT [facility] Name Value Range Interpretation Code Description Data Joyce [facility](s) Supporting Document(s) CBC W/AUTOMATED DIFF [facility] COMPLETE BLOOD COUNT Leukocytes [#/volume] in Blood by Automated count 4.7 10^3/uL 4.2 - 1 1.0 [facility] Erythrocytes [#/volume] in Blood by Automated count 4.95 10^6/uL 4. 20 - 5.40 [facility] Hemoglobin [Mass/volume] in Blood 12.3 g/dL 12.0 - 16.0 [facility] Hematocrit [Volume Fraction] of Blood by Automated count 39.1 % 3 7.0 - 47.0 [facility] Erythrocyte mean corpuscular volume [Entitic volume] by Auto mated count 79.0 fL 81.0 - 101 L [facility] Erythrocyte mean corpuscular hemoglobin [Entitic mass] by Automated count 24.8 pg 27.0 - 34.0 L [facility] Erythrocyte mean corpuscular hemoglobin concentration [Mass/volume] by Automated count 31.5 g/dL 31.0 - 36.0 [facility] Erythrocyte distribution width [Ratio] by Automated count 14.4 % 11.5 - 14.5 [facility] Platelets [#/volume] in Blood by Automated count 174 10^3/uL 150 - 45 0 [facility] Platelet mean volume [Entitic volume] in Blood by Automated count 8.8 fL 7.4 - 10.4 [facility] Neutrophils/100 leukocytes in Blood by Automated count 77.1 % 37. 0 - 80.0 [facility] Lymphocytes/100 leukocytes in Blood by Manual count 13.8 % 25.0 - 40.0 L [facility] Monocytes/100 leukocytes in Blood by Automated count 6.0 % 3.0 - 8.0 [facility] Eosinophils/100 leukocytes in Blood by Automated count 2.3 % 0.0 - 7.0 [facility] Basophils/100 leukocytes in Blood by Automated count 0.4 % 0.0 - 2.5 [facility] %IG 0.4 % 0.0 - 0.0 [facility] al %NRBC 0.0 % 0.0 - 0.0 [facility] al Neutrophils [#/volume] in Blood by Automated count 3.62 10^3/uL 2.00 - 6.90 [facility] Lymphocytes [#/volume] in Blood by Automated count 0.65 10^3/uL 0.60 - 3.40 [facility] Monocytes [#/volume] in Blood by Automated count 0.28 10^3/uL 0.00 - 0.90 [facility] Eosinophils [#/volume] in Blood by Automated count 0.11 10^3/uL 0.00 - 0.70 [facility] Basophils [#/volume] in Blood by Automated count 0.02 10^3/uL 0.00 - 0.20 [facility] #IG 0.02 10^3/uL 0.00 - 0.10 [facility] H ospital #NRBC 0.00 10^3/uL 0.00 - 0.00 [facility] H ospital MANUAL DIFF NOT INDICATED [facility] RBC MORPH NOT INDICATED [facility] spital ID Date Data Source [id number] 03/04/2020 05:17:00 AM EDT [facility] gavin Montano [address] [address] FOLLOW UP NOTENAME: BROOKS HENDRIX MPHYSICIAN: MANISHA RIGGINS, MDDATE OF SERVICE: 03/03/20DATE OF : [birth year]ACCOUNT #: [id number]: BROOKS HENDRIXDate: Mar 03, 2020DOB: 1970Physician: Dr. 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 Aparicio with antiphospholipidsyndrome antibody testing at [facility] and at [facility] and both are reported as positive. [...] [facility] She also has problems with neuropathy which is beingfollowed by Dr. Bronson neurologist at [facility].She denies any history of skin rash or prior miscarriages. No history ofarterial thrombosis.INTERVAL HISTORY:Patient comes in stating that she is now off zonisamide. She had flare oflupus and the CellCept dose is being increased. She has had increasing muscleand joint pain and fatigue. Her potassium dose has been increased to decreaseher leg cramps. 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 [facility].Review of Systems:ConstitutionalNo fevers, chills, night [...] night for several nights. Started B2 around thesaia timeVital Signs:Performed on Mar 03, 2020 15:00Kmkdzg07.00 olEdvtqp604.2 lbs(HIGH)BSA (derived)2.54 sq.mBMI50.51 (HIGH)Bwgdoslwleu69 DDiufw03 /yrvMuhdjbohpkd61 /gvuYW931/92Pulse Oximetry (O2 Sat)100 %Fall Risklow riskPerformance Status:1 [...] per notes [facility]1.Non-reliability of INR self testing in antiphospholipid antibody syndromepatients-Pt has been having her INR tested the lab at [facility].2. Fluctuation of INR-Patient is using vitamin K [...] rce(s) Supporting Document(s) ID Date Data Source [id number] 03/03/2020 01:15:00 PM EDT [facility] (Famil y [...] normal MEDE NT ([facility] [place] % 7.7 % 0.0-5.0 Above high normal [facility] ([facility] Platelet Count, Automated 189 10 150-450 Normal (applies to non-numeric results) [facility] ([facility] ) Lymph % 10.6 % 24.0-44.0 Below low normal [facility] ( [facility] Eos % 1.7 % 0.0-3.0 Normal (applies to non-numeric resul ts) [facility] ([facility] Immature Granulocyte % 0.9 % 0-3.0 Normal (applies to non-n umeric results) [facility] ([facility] Baso % 0.5 % 0.0-1.0 Normal (applies to non-numeric resul ts) [facility] ([facility] Neutrophils # 5.0 10 1.5-8.5 Normal (applies to non-numeric re sults) [facility] ([facility] Nucleated Red Blood Cell % 0.0 % 0-0 Normal (applies to n on-numeric results) [facility] ([facility] Lymph # 0.7 10 1.5-5.0 Below low normal [facility] ( [facility] [place] # 0.5 10 0.0-0.8 Normal (applies to non-numeric resul ts) [facility] ([facility] Eos # 0.1 10 0.0-0.5 Normal (applies to non-numeric resul ts) [facility] ([facility] Baso # 0.0 10 0.0-0.2 Normal (applies to non-numeric resul ts) [facility] ([facility] ID Date Data Source [id number] 03/03/2020 01:15:00 PM EDT [facility] ([facility] Name Value Range Interpretation Code Description Data Joyce rce(s) Supporting Document(s) Prothrombin Time 31.4 s 11.8-14.0 Above high normal M [facility] ([facility] Inr 2.95 Normal (applies to non-numeric resul ts) [facility] ([facility] THERAPUTIC HUMAN INR VALUES INDICATIONS NORMAL RANGES PROPHYLAXIS/TREATMENT OF: VENOUS THROMBOSIS 2.0-3.0 PULMONARY EMBOLISM 2.0-3.0 PREVENTION OF SYSTEMIC EMBOLISM FROM: TISSUE HEART VALVES 2.0-3.0 ACUTE MYOCARDIAL INFARCTION 2.0-3.0 VALVULAR HEART DISEASE 2.0-3.0 ATRIAL FIBRILLATION 2.0-3.0 MECHANICAL VALVES(HIGH RISK) 2.5-3.5 RECURRENT MYOCARDIAL INFARCTION 2.5-3.5 ID Date Data Source [id number] 03/03/2020 01:15:[address] [facility] Name Value Range Interpretation Code Description Data Joyce rce(s) Supporting Document(s) COMPREHENSIVE CHEM PROFILE i [facility] COMPREHENSIVE METABOLIC PANEL Sodium [Moles/volume] in Serum or Plasma 138 mEq/L 136 - 145 [facility] Potassium [Moles/volume] in Serum or Plasma 3.9 mEq/L 3.5 - 5.1 [facility] Chloride [Moles/volume] in Serum or Plasma 102 mEq/L 98 - 107 [facility] Carbon dioxide, total [Moles/volume] in Serum or Plasma 29.6 mEq /L 21.0 - 32.0 [facility] Glucose [Mass/volume] in Serum or Plasma 88 mg/dL 70 - 100 [facility] Urea nitrogen [Mass/volume] in Serum or Plasma 12 mg/dL 7 - 18 [facility] CREATININE SERUM 1.05 mg/dL 0.55 - 1.[address] [facility] AGE 50 yrs [facility] HEIGHT NA [facility] eGFR NON-AFR AMR 55 [facility] eGFR AFR AMR >60 [facility] BUN/CREAT 11 6 - 25 [facility] Protein [Mass/volume] in Serum or Plasma 7.1 g/dL 6.0 - 8.3 [facility] Albumin [Mass/volume] in Serum or Plasma 3.6 g/dL 3.8 - 5.[address] [facility] GLOBULIN 3.5 g/dL 2.0 - 4.0 [facility] A/G RATIO 1.0 0.8 - 2.0 [facility] Calcium [Mass/volume] in Serum or Plasma 8.9 mg/dL 8.8 - 10.2 [facility] Bilirubin.total [Mass/volume] in Serum or Plasma 0.3 mg/dL 0.2 - 1.0 [facility] Bilirubin.direct [Mass/volume] in Serum or Plasma 0.1 mg/dL 0.0 - 0. 2 [facility] INDIRECT BILI 0.2 mg/dL 0.0 - 1.1 [facility] pital ALK PHOSPHATASE 77 U/L 35 - 104 [facility] ospital Aspartate aminotransferase [Enzymatic ac tivity/volume] in Serum or Plasma by With P-5'-P 15 IU/L 7 - 37 [facility] Alanine aminotransferase [Enzymatic acti vity/volume] in Serum or Plasma by With P-5'-P 24 IU/L 12 - 78 [facility] ANION GAP 6 7 - [address] [facility] Estimated GFR referenc e range: >60ml/min/1.73m >18 years: Calculated using IDMS traceable Study Equation <18 years: Calculated using IDMS tracable Bedside Schartz Equation ID Date Data Source [id number] 02/21/2020 02:05:00 PM EDT [facility] ([facility] Name Value Range Interpretation Code Description Data Joyce rce(s) Supporting Document(s) Glu 90 mg/dL 70-110 [facility] CHRONIC KIDNEY DISEASE [...] mL/min Normal BUN 14 mg/dL 8-23 [facility] CHRONIC KIDNEY DISEASE [...] mL/min Normal BUN/Creatinine Ratio 15.3 Calc [facility] ([facility] CHRONIC KIDNEY DISEASE [...] mL/min Normal Creat 0.9 mg/dL 0.5-1.0 [facility] ([facility] CHRONIC KIDNEY DISEASE STAGING PER [...] mL/min Normal Co2 24.4 mmol/L 22.0-29.0 [facility] ([facility] CHRONIC KIDNEY DISEASE STAGING [...] mL/min Normal Na 141 mmol/L 136-145 [facility] CHRONIC KIDNEY DISEASE STAGING PER [...] mL/min Normal CA 9.1 mg/dL 8.6-10.2 [facility] ([facility] CHRONIC KIDNEY DISEASE STAGING [...] mL/min Normal Anion Gap 13 mmol/L [facility] ([facility] CHRONIC KIDNEY DISEASE STAGING [...] and above >32 mL/min Normal eGFR Non-Afr. Micronesian 75 # [facility]AN[facility]SA ([facility] [...] >32 mL/min Normal ID Date Data Source [id number] 02/18/2020 03:05:00 PM EDT [facility] ([facility] Name Value Range Interpretation Code Description Data Joyce rce(s) Supporting Document(s) Inr 2.96 Normal (applies to non-numeric resul ts) [facility] THERAPUTIC HUMAN INR VALUES INDICATIONS NORMAL RANGES PROPHYLAXIS/TREATMENT OF: VENOUS THROMBOSIS 2.0-3.0 PULMONARY EMBOLISM 2.0-3.0 PREVENTION OF SYSTEMIC EMBOLISM FROM: TISSUE HEART VALVES 2.0-3.0 ACUTE MYOCARDIAL INFARCTION 2.0-3.0 VALVULAR HEART DISEASE 2.0-3.0 ATRIAL FIBRILLATION 2.0-3.0 MECHANICAL VALVES(HIGH RISK) 2.5-3.5 RECURRENT MYOCARDIAL INFARCTION 2.5-3.5 Prothrombin Time 30.7 s 11.8-14.0 Above high normal [facility] ID Date Data Source [id number] 02/07/2020 01:16:00 PM EDT [facility] ([facility] Name Value Range Interpretation Code Description Data Joyce rce(s) Supporting Document(s) Prothrombin Time 28.0 s 11.8-14.0 Above high normal M E[facility] ([facility] Inr 2.63 Normal (applies to non-numeric resul ts) [facility] ([facility] THERAPUTIC HUMAN INR VALUES INDICATIONS NORMAL RANGES PROPHYLAXIS/TREATMENT OF: VENOUS THROMBOSIS 2.0-3.0 PULMONARY EMBOLISM 2.0-3.0 PREVENTION OF SYSTEMIC EMBOLISM FROM: TISSUE HEART VALVES 2.0-3.0 ACUTE MYOCARDIAL INFARCTION 2.0-3.0 VALVULAR HEART DISEASE 2.0-3.0 ATRIAL FIBRILLATION 2.0-3.0 MECHANICAL VALVES(HIGH RISK) 2.5-3.5 RECURRENT MYOCARDIAL INFARCTION 2.5-3.5 ID Date Data Source [id number] 02/12/2020 04:21:00 PM EDT [facility] Name Value Range Interpretation Code Description Data Joyce rce(s) Supporting Document(s) C4 Complement,S result 18 mg/dL 13-39 Normal (applies to non-n umeric results) [facility] Test performed [place] [address] ID Date Data Source [id number] 02/12/2020 04:21:00 PM EDT [facility] Name Value Range Interpretation Code Description Data Joyce rce(s) Supporting Document(s) C3 Complement,S result 92 mg/dL 81-157 Normal (applies to non-numeric results) [facility] Test performed [place] [address] ID Date Data Source [id number] 02/12/2020 04:21:00 PM EDT [facility] Name Value Range Interpretation Code Description Data Joyce rce(s) Supporting Document(s) DNA (Double Stranded) Ab res <30.0 [facility] Negative: <30.0 IU/mL Borderline Positive: 30.0 - 75.0 IU/mL Positive: >75.0 IU/mL Results were obtained with the [employer] QUANTA Lite dsDNA SC JONI assay on the [employer]. Test performed [place] [address] ID Date Data Source [id number] 02/12/2020 04:21:00 PM EDT [facility] Name Value Range Interpretation Code Description Data Joyce rce(s) Supporting Document(s) HIV-1/-2 Ag+Ab Screen,Plas res Negative N ormal (applies to non-numeric results) [facility] Negative result does not rule out HIV in fection. If exposure to HIV infection occurred <14 days ago, contact the laboratory to request addition of HIV-1 RNA detection / quantification test (HIVQN). Test Performed by: [facility] [address] [place] [address] Well Puller: Willy Lozano M.D. Ph.D.; CLIA# [id number] ID Date Data Source [id number] 02/07/2020 02:16:00 PM EDT [facility] Name Value Range Interpretation Code Description Data Joyce rce(s) Supporting Document(s) Creatinine,Ur Random Normal (applies to non-num trish results) [facility] No established reference values Total Protein,Urine Random Normal (applies to n on-numeric results) [facility] No established reference values UrTotal Protein/Creat Ratio Normal (applies to non-numeric results) [facility] No established reference values ID Date Data Source [id number] 02/07/2020 02:15:00 PM EDT [facility] Name Value Range Interpretation Code Description Data Joyce rce(s) Supporting Document(s) Erythrocyte Sedimentation ESR 23 mm/hr 0-20 Above high normal [facility] ID Date Data Source [id number] 02/07/2020 01:47:00 PM EDT [facility] Name Value Range Interpretation Code Description Data Joyce rce(s) Supporting Document(s) Color,Urine Yellow Normal (applies to non-numeric resu lts) [facility] Clarity,Urine Clear Normal (applies to non-numeric re sults) [facility] Specific [place],Urine 1.001-1.030 Normal (applies to non- numeric results) [facility] PH,Urine 5.0-8.0 Normal (applies to non-numeric resul ts) [facility] Protein,Urine Negative Normal (applies to non-numeric re sults) [facility] Glucose,Urine (UA) Negative Normal (applies to non-numer ic results) [facility] Ketones,Urine Negative Normal (applies to non-numeric re sults) [facility] Blood,Urine Negative Normal (applies to non-numeric resu lts) [facility] Bilirubin,Urine Negative Normal (applies to non-numeric results) [facility] Urobilinogen,Urine Norm 0.2-1 Normal (applies to non-numer ic results) [facility] Leukocyte Esterase,Urine Negative Normal (applies to non -numeric results) [facility] Nitrite,Urine Negative Normal (applies to non-numeric re sults) [facility] RBC,Auto Urine 0-2 Normal (applies to non-numeric r esults) [facility] WBC Urine Auto 0-10 Normal (applies to non-numeric r esults) [facility] Casts,Hyaline,Urine Auto 0-2 Normal (applies to non -numeric results) [facility] Bacteria Urine Auto None Seen Normal (applies to non-nume elías results) [facility] Epithelial Cell Ur Auto None-Few Normal (applies to non- numeric results) [facility] ID Date Data Source [id number] 02/07/2020 01:39:00 PM EDT [facility] Name Value Range Interpretation Code Description Data Joyce rce(s) Supporting Document(s) C-Reactive Protein,Wide Range <3.00 Normal (applies t o non-numeric results) [facility] ID Date Data Source [id number] 02/04/2020 12:00:00 AM EDT [facility] Name Value Range Interpretation Code Description Data Joyce rce(s) Supporting Document(s) SARS coronavirus 2 RNA panel N [id number] This lab was ordered by [address] and reported by [facility]. ID Date Data Source [id number] 01/28/2020 12:44:00 PM EDT [facility] ([facility] Name Value Range Interpretation [...] s 11.8-14.0 Above high normal M [facility] ([facility] ID Date Data Source [id number] 01/14/2020 11:49:00 AM EDT [facility] ([facility] Name Value Range Interpretation Code Description Data Joyce rce(s) Supporting Document(s) Inr 2.72 Normal (applies to non-numeric resul ts) [facility] ([facility] THERAPUTIC HUMAN INR VALUES INDICATIONS NORMAL RANGES PROPHYLAXIS/TREATMENT OF: VENOUS THROMBOSIS 2.0-3.0 PULMONARY EMBOLISM 2.0-3.0 PREVENTION OF SYSTEMIC EMBOLISM FROM: TISSUE HEART VALVES 2.0-3.0 ACUTE MYOCARDIAL INFARCTION 2.0-3.0 VALVULAR HEART DISEASE 2.0-3.0 ATRIAL FIBRILLATION 2.0-3.0 MECHANICAL VALVES(HIGH RISK) 2.5-3.5 RECURRENT MYOCARDIAL INFARCTION 2.5-3.5 Prothrombin Time 28.7 s 11.8-14.0 Above high normal M [facility] ([facility] ID Date Data Source [id number] 01/08/2020 12:00:00 AM EDT [facility] Jonatan Kerr M.D Patient Name: BROOKS [id number] Date of : 1970[address] Date of Exam: 01/08/2020DHARA [place] [address]CA#: Fax: [phone] EXAM: CHEST (2 VIEW) X-RAYCLINICAL [...] rce(s) Supporting Document(s) ID Date Data Source [id number] 01/01/2020 11:32:00 AM EDT [facility] ([employer] [facility] Name Value Range Interpretation Code Description Data Joyce rce(s) Supporting Document(s) Inr 2.81 Normal (applies to non-numeric resul ts) [facility] ([facility] THERAPUTIC HUMAN INR VALUES [...] [facility] ID Date Data Source [id number] 12/20/2019 10:15:00 AM EDT [facility] ([facility] Name Value Range Interpretation [...] MYOCARDIAL INFARCTION 2.5-3.5 ID Date Data Source [id number] 12/10/2019 01:36:00 PM EDT [facility] ([facility] Name Value Range Interpretation Code Description Data Joyce rce(s) Supporting Document(s) Inr 2.72 Normal (applies to non-numeric resul ts) [facility] ([facility] THERAPUTIC HUMAN INR VALUES INDICATIONS NORMAL RANGES PROPHYLAXIS/TREATMENT OF: VENOUS THROMBOSIS 2.0-3.0 PULMONARY EMBOLISM 2.0-3.0 PREVENTION OF SYSTEMIC EMBOLISM FROM: TISSUE HEART VALVES 2.0-3.0 ACUTE MYOCARDIAL INFARCTION 2.0-3.0 VALVULAR HEART DISEASE 2.0-3.0 ATRIAL FIBRILLATION 2.0-3.0 MECHANICAL VALVES(HIGH RISK) 2.5-3.5 RECURRENT MYOCARDIAL INFARCTION 2.5-3.5 Prothrombin Time 28.7 s 11.8-14.0 Above high normal [facility] ID Date Data Source [id number] 12/03/2019 05:30:00 PM EDT [facility] HORTENSIA Montano [address] [address] FOLLOW UP NOTENAME: BROOKS HENDRIX MPHYSICIAN: MANISHA RIGGINS, MDDATE OF SERVICE: 12/03/19DATE OF : [birth year]ACCOUNT #: [id number]: BROOKS HENDRIXDate: December 03, 2019DOB: 1970Physician: Dr. Frank Ocampo M.D., M.P.H.Manisha Riggins M.B.B.S.Age: 49Note Title: Hematology Follow UpDiagnosis:Primary - I26.99 - Other pulmonary embolism without acute cor pulmonale,Diagnosed 2019 (Active)Primary - Z79.01 - halfway (current) use of anticoagulants, Leah [id number] (Active)Primary - M32.9 - Systemic lupus erythematosus, [...] after a footsurgery in November 2017. 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 Aparicio with antiphospholipidsyndrome antibody testing at [facility] and at [facility] and both are reported as positive. [...] isbeing followed by primary care provider Subhash Hre.She also reports [facility] of [facility] She also has problems with neuropathy which is beingfollowed by Dr. Bronson neurologist at [facility].She denies any history of skin rash or [...] discussed the risks of possible breach ofhealth information systems manager while using technology. After this discussionpatient gave [...] aneurysm for which she was referred to [facility]. Initiallycontinued observation and we will he was recommended but most recently theneurosurgeon wanted her to have surgery. She talk to Dr. Velazquez and theneurologist and then decided to get a second opinion in [place]. statesthat since she would have to come off anticoagulants she would like a definiteopinion as to whether she needs the surgery. NextPatient states that she was supposed to [facility]otherop[facility] for the multiple issues [...] daily (Feb 16, 2019)Nystatin 5 G (of 310688 Units/g) Cream Topical b.i.d. 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 [facility].Review of Systems:ConstitutionalNo fevers, chills, night [...] per [facility]1.Non-reliability of INR self testing in antiphospholipid antibody syndromepatients-Pt has been having her INR tested the lab at [facility].2. Fluctuation of INR-Patient is using vitamin K [...] Name Value Range Interpretation Code Description Data [facility] rce(s) Supporting Document(s) ID Date Data Source [id number] 11/30/2019 12:00:00 AM EDT [facility] Maximo Baron Rpa Patient Name: AMELIA HENDRIX Date of : 1970[place] [address] Date of Exam: 11/30/2019PH#: Fax: [phone] EXAM: [...] rce(s) Supporting Document(s) ID Date Data Source [id number] 12/03/2019 11:08:00 AM EDT [facility] ([facility] Name Value Range Interpretation Code Description Data Joyce rce(s) Supporting Document(s) Prothrombin Time 29.6 s 11.8-14.0 Above high normal M EDENT ([facility] Inr 2.82 Normal (applies to non-numeric resul ts) [facility] ([facility] THERAPUTIC HUMAN INR VALUES INDICATIONS NORMAL RANGES PROPHYLAXIS/TREATMENT OF: VENOUS THROMBOSIS 2.0-3.0 PULMONARY EMBOLISM 2.0-3.0 PREVENTION OF SYSTEMIC EMBOLISM FROM: TISSUE HEART VALVES 2.0-3.0 ACUTE MYOCARDIAL INFARCTION 2.0-3.0 VALVULAR HEART DISEASE 2.0-3.0 ATRIAL FIBRILLATION 2.0-3.0 MECHANICAL VALVES(HIGH RISK) 2.5-3.5 RECURRENT MYOCARDIAL INFARCTION 2.5-3.5 ID Date Data Source [id number] 11/30/2019 12:00:00 AM EDT [facility] Manisha Riggins Patient Name: GILMA HENDRIX Place Date of : 1970[place] [address] Date of Exam: 11/30/2019#: Fax: [phone] EXAM: [...] the left thigh as describedabove.Accredited by the [employer] in Vascular PeripheralUltrasound.MERT Hassan/Hollis you for referring BROOKS HENDRIX to our office. Electronically Signed - KORY PLATT DO 11/30/19 12:04 Name Value Range Interpretation Code Description Data Joyce rce(s) Supporting Document(s) ID Date Data Source [id number] 11/26/2019 01:29:00 PM EDT [facility] ([facility] Name Value Range Interpretation Code Description Data Joyce rce(s) Supporting Document(s) Prothrombin Time 29.3 s 11.8-14.0 Above high normal M EDENT ([facility] Inr 2.78 Normal (applies to non-numeric resul ts) [facility] ([facility] THERAPUTIC HUMAN INR VALUES INDICATIONS NORMAL RANGES PROPHYLAXIS/TREATMENT OF: VENOUS THROMBOSIS 2.0-3.0 PULMONARY EMBOLISM 2.0-3.0 PREVENTION OF SYSTEMIC EMBOLISM FROM: TISSUE HEART VALVES 2.0-3.0 ACUTE MYOCARDIAL INFARCTION 2.0-3.0 VALVULAR HEART DISEASE 2.0-3.0 ATRIAL FIBRILLATION 2.0-3.0 MECHANICAL VALVES(HIGH RISK) 2.5-3.5 RECURRENT MYOCARDIAL INFARCTION 2.5-3.5 ID Date Data Source [id number] 11/19/2019 01:10:00 PM EDT [facility] ([facility] Name Value Range Interpretation Code Description Data Joyce rce(s) Supporting Document(s) Laboratory test finding (navigational concept) Laboratory test r esult Above high normal [facility] ([facility] ) Performed at: [address] [id number] Puller: Avinash Piedra MD, Phone: [phone] Laboratory test finding (navigational concept) Laboratory test r esult Abnormal (applies to non-numeric results) [facility] ([facility] ID Date Data Source [id number] 11/19/2019 01:10:00 PM EDT [facility] ([facility] Name Value Range Interpretation Code Description Data Joyce rce(s) Supporting Document(s) Complement C4 [Mass/volume] in Serum or Plasma 18 mg/dL 1 0-40 Normal (applies to non-numeric results) [facility] ([facility] Complement C3 [Mass/volume] in Serum or Plasma 95 mg/dL 9 0-180 Normal (applies to non-numeric results) [facility] ([facility] C reactive protein [Mass/volume] in Serum or Plasma by High sensitivity method Laboratory test result 0.00-0.30 Normal (applies to non-numeric results) [facility] ([facility] ID Date Data Source [id number] 11/19/2019 01:10:00 PM EDT [facility] ([facility] Name Value Range Interpretation Code Description Data Joyce rce(s) Supporting Document(s) Creatinine For GFR 1.00 mg/dL 0.55-1.30 Normal (applies to non -numeric results) [facility] ([facility] Glucose, Fasting 81 mg/dL 70-100 Normal (applies to non-numeric results) [facility] Blood Urea Nitrogen 12 mg/dL 7-18 Normal (applies to non-nume elías results) [facility] ([facility] Sodium Level 140 meq/L 136-145 Normal (applies to non-numeric res ults) [facility] Potassium Serum 3.1 meq/L 3.5-5.1 Below low normal MED ENT ([facility] Glomerular Filtration Rate Laboratory test result Normal (applies to non- numeric results) [facility] ([facility] ) <content>Units are mL/min/1.73 m2</content>
<content></content>
<content>Chronic Kidney Disease Staging per NKF:</content>
<content></content>
<content>Stage I & II GFR >=60 Normal to Mildly Decreased</content>
<content>Stage III GFR 30- 59 Moderately Decreased</content>
<content>Stage IV GFR 15-29 Severely Decreased</content>
<content>Stage V GFR <15 Very Little GFR Left</content>
<content>ESRD GFR <15 on VP PURCHASING</content>
<content></content> Calcium Level 8.7 mg/dL 8.5-10.1 Normal (applies to non-numeric re sults) [facility] Anion Gap 6 meq/L 8-16 Below low normal [facility] ( [facility] Chloride Level 106 meq/L 98-107 Normal (applies to non-numeric r esults) [facility] ([facility] Carbon Dioxide Level 28 meq/L 21-32 Normal (applies to non-num trish results) [facility] ([facility] Alt/SGPT 21 U/L 12-78 Normal (applies to non-numeric resul ts) [facility] ([facility] Alkaline Phosphatase 72 U/L 45-117 Normal (applies to non-num trish results) [facility] ([facility] Ast/Sgot 12 U/L 7-37 Normal (applies to non-numeric resul ts) [facility] ([facility] Albumin/Globulin Ratio 0.88 1.00-1.93 Below low normal [facility] ([facility] Bilirubin,Total 0.4 mg/dL 0.2-1.0 Normal (applies to non-numeric results) [facility] ([facility] Albumin 3.6 GM/DL 3.2-5.2 Normal (applies to non-numeric resul ts) [facility] ([facility] Total Protein 7.7 GM/DL 6.4-8.2 Normal (applies to non-numeric re sults) [facility] ([facility] ID Date Data Source [id number] 11/19/2019 01:10:00 PM EDT [facility] ([facility] Name Value Range Interpretation Code Description Data Joyce rce(s) Supporting Document(s) Erythrocyte sedimentation rate by Westergren method 9 mm/hr 0-20 Normal (applies to non-numeric results) [facility] ([facility] ID Date Data Source [id number] 11/19/2019 01:10:00 PM EDT [facility] ([facility] Name Value Range Interpretation Code Description Data Joyce rce(s) Supporting Document(s) Neutrophils % 62.5 % 36.0-66.0 Normal (applies to non-numeric re sults) [facility] ([facility] Lymph % 25.4 % 24.0-44.0 Normal (applies to non-numeric resul ts) [facility] ([facility] Baso % 0.5 % 0.0-1.0 Normal (applies to non-numeric resul ts) [facility] ([facility] Eos % 3.2 % 0.0-3.0 Above high normal [facility] ([facility] [place] % 7.7 % 0.0-5.0 Above high normal [facility] ([facility] [place] # 0.4 10 0.0-0.8 Normal (applies to non-numeric resul ts) [facility] ([facility] Lymph # 1.4 10 1.5-5.0 Below low normal [facility] ( [facility] Immature Granulocyte % 0.7 % 0-3.0 Normal (applies to non-n umeric results) [facility] ([facility] Neutrophils # 3.5 10 1.5-8.5 Normal (applies to non-numeric re sults) [facility] ([facility] Eos # 0.2 10 0.0-0.5 Normal (applies to non-numeric resul ts) [facility] ([facility] Baso # 0.0 10 0.0-0.2 Normal (applies to non-numeric resul ts) [facility] ([facility] ID Date Data Source [id number] 11/19/2019 01:10:00 PM EDT [facility] ([facility] Name Value Range Interpretation Code Description Data Joyce rce(s) Supporting Document(s) Red Blood Count 5.34 10 4.00-5.40 Normal (applies to non-numeric results) [facility] ([facility] White Blood Count 5.6 10 4.0-10.0 Normal (applies to non-numeri c results) [facility] ([facility] Mean Corpuscular Volume 80.9 fl 80.0-96.0 Normal ( applies to non-numeric results) [facility] ([facility] ) Hematocrit 43.2 % [...] [facility] ID Date Data Source [id number] 11/19/2019 01:10:00 PM EDT [facility] Name Value Range Interpretation Code Description Data Joyce rce(s) Supporting Document(s) Total Protein,Random Urine 5.6 mg/dL 0.0-12.0 Piedad l (applies to non-numeric results) [facility] ( [facility] ) ID Date Data Source [id number] 11/19/2019 01:10:00 PM EDT [facility] Name Value Range Interpretation Code Description Data Joyce rce(s) Supporting Document(s) Appearance, Urine Laboratory test result Normal (applies to non-numeric results) [facility] ([facility] ) Color, Urine Laboratory test result Normal (applies to non -numeric results) [facility] ([facility] Specific [place] Urine Auto 1.005 1.002-1.035 Norm al (applies to non-numeric results) [facility] ([facility] ) Protein, Urine Auto Laboratory test result Piedad l (applies to non-numeric results) [facility] ([facility] ) PH,Urine 6.0 units 5.0-9.0 Normal (applies to non-numeric resul ts) [facility] ([facility] Ketone, Urine Auto Laboratory test result Normal (applies to non-numeric results) [facility] ([facility] ) Urobilinogen, Urine Auto 0.2 mg/dL 0.0-2.0 Normal (applies to non-numeric results) [facility] ([facility] ) Glucose, Urine (Ua) Auto Laboratory test result Normal (applies to non-numeric results) [facility] ([facility] ) Leukocyte Esterase, Urine Auto Laboratory test result Abov e high normal [facility] ([facility] Nitrite, Urine Auto Laboratory test result Piedad l (applies to non-numeric results) [facility] ([facility] ) Bilirubin, Urine Auto Laboratory test result Nor mal (applies to non-numeric results) [facility] ([facility] ) RBC, Urine Auto 1 /HPF 0-3 Normal (applies to non-numeric results) [facility] ([facility] WBC, Urine Auto 1 /HPF 0-3 Normal (applies to non-numeric results) [facility] ([facility] Blood, Urine Blood Laboratory test result Normal (applies to non-numeric results) [facility] ([facility] ) Bacteria, Urine Auto Laboratory test result Norm al (applies to non-numeric results) [facility] ([facility] ) Squamous Epithelial Cell Ur AU 1 /HPF 0-6 N ormal (applies to non-numeric results) [facility] ([facility] ) Hyaline Cast, Urine Auto 0 /LPF 0-1 Normal (applies to non -numeric results) [facility] ([facility] ID Date Data Source [id number] 11/19/2019 01:10:00 PM EDT [facility] ([facility] Name Value Range Interpretation Code Description Data Joyce rce(s) Supporting Document(s) Prothrombin Time 29.9 s 11.8-14.0 Above high normal M [facility] ([facility] Inr 2.86 Normal (applies to non-numeric resul ts) [facility] ([facility] THERAPUTIC HUMAN INR VALUES INDICATIONS NORMAL RANGES PROPHYLAXIS/TREATMENT OF: VENOUS THROMBOSIS 2.0-3.0 PULMONARY EMBOLISM 2.0-3.0 PREVENTION OF SYSTEMIC EMBOLISM FROM: TISSUE HEART VALVES 2.0-3.0 ACUTE MYOCARDIAL INFARCTION 2.0-3.0 VALVULAR HEART DISEASE 2.0-3.0 ATRIAL FIBRILLATION 2.0-3.0 MECHANICAL VALVES(HIGH RISK) 2.5-3.5 RECURRENT MYOCARDIAL INFARCTION 2.5-3.5 ID Date Data Source [id number] 10/13/2019 10:37:00 PM EDT [facility] ([facility] Name Value Range Interpretation Code Description Data Joyce rce(s) Supporting Document(s) PH,Urine RFX 7.0 units 5.0-9.0 Normal (applies to non-numeric res ults) [facility] Specific [place] Ur Auto RFX 1.005 1.002-1.035 Nor mal (applies to non-numeric results) [facility] ([facility] ) Appearance, Urine RFX Laboratory test result Nor mal (applies to non-numeric results) [facility] ([facility] ) Color, Urine RFX Laboratory test result Normal ( applies to non-numeric results) [facility] ([facility] ) Glucose, Urine (Ua) Auto RFX Laboratory test result Normal (applies to non- numeric results) [facility] ) Urobilinogen, Urine Auto RFX 0.2 mg/dL 0.0-2.0 Nor mal (applies to non-numeric results) [facility] ([facility] ) Protein, Urine Auto RFX Laboratory test result N ormal (applies to non-numeric results) [facility] ([facility] ) Ketone, Urine Auto RFX Laboratory test result No rmal (applies to non-numeric results) [facility] ([facility] ) Bilirubin, Urine Auto RFX Laboratory test result Normal (applies to non- numeric results) [facility] ([facility] ) Leukocyte Esterase Ur Auto RFX Laboratory test result Normal (applies to non- numeric results) [facility] ([facility] ) Nitrite, Urine Auto RFX Laboratory test result N ormal (applies to non-numeric results) [facility] ([facility] ) Blood, Urine Blood RFX Laboratory test result No rmal (applies to non-numeric results) [facility] ([facility] ) WBC, Urine Auto RFX 1 /HPF 0-3 Normal (applies to non-nume elías results) [facility] ([facility] RBC, Urine Auto RFX 0 /HPF 0-3 Normal (applies to non-nume elías results) [facility] ([facility] Hyaline Cast, Urine Auto RFX 0 /LPF 0-1 Normal (appl ies to non-numeric results) [facility] ([facility] Squam Epithelial Cell Ur Aurfx 0 /HPF 0-6 N ormal (applies to non-numeric results) [facility] ([facility] ) Bacteria, Urine Auto RFX Laboratory test result Normal (applies to non-numeric results) [facility] ([facility] ) ID Date Data Source [id number] 10/13/2019 09:08:00 PM EDT [facility] ([facility] Name Value Range Interpretation Code Description Data Joyce rce(s) Supporting Document(s) Laboratory test finding (navigational concept) 38.0 % 3 8.0-51.0 Normal (applies to non-numeric results) [facility] ([facility] Laboratory test finding (navigational concept) 3.7 meq/L 3 .5-5.1 Normal (applies to non-numeric results) [facility] ([facility] Laboratory test finding (navigational concept) 139 meq/L 1 36-145 Normal (applies to non-numeric results) [facility] ([facility] Laboratory test finding (navigational concept) 106 mg/dL 7 0-105 Above high normal [facility] ([facility] ) Laboratory test finding (navigational concept) 27.0 MM/L 2 3.0-27.0 Normal (applies to non-numeric results) [facility] Laboratory test finding (navigational concept) 4.7 mg/dL 4 .5-5.3 Normal (applies to non-numeric results) [facility] ([facility] Laboratory test finding (navigational concept) 101 meq/L 9 8-109 Normal (applies to non-numeric results) [facility] ([facility] Laboratory test finding (navigational concept) 12 mg/dL 8 -26 Normal (applies to non-numeric results) [facility] ([facility]) Laboratory test finding (navigational concept) 0.8 mg/dL 0 .6-1.3 Normal (applies to non-numeric results) [facility] ([facility] ID Date Data Source [id number] 10/13/2019 08:48:00 PM EDT [facility] Name Value Range Interpretation Code Description Data Joyce rce(s) Supporting Document(s) Lipoprotein lipase [Enzymatic activity/volume] in Serum or Plasm a 84 U/L 73-393 Normal (applies to non-numeric results) [facility] ([facility] ID Date Data Source [id number] 10/13/2019 08:48:00 PM EDT [facility] Name Value Range Interpretation Code Description Data Joyce rce(s) Supporting Document(s) Ast/Sgot 16 U/L 7-37 Normal (applies to non-numeric resul ts) [facility] ([facility] Alt/SGPT 20 U/L 12-78 Normal (applies to non-numeric resul ts) [facility] ([facility] Bilirubin,Total 0.3 mg/dL 0.2-1.0 Normal (applies to non-numeric results) [facility] ([facility] Alkaline Phosphatase 67 U/L 45-117 Normal (applies to non-num trish results) [facility] ([facility] Bilirubin,Direct Laboratory test result 0.0-0.2 Normal ( applies to non-numeric results) [facility] ([facility] ) Albumin 3.5 GM/DL 3.2-5.2 Normal (applies to non-numeric resul ts) [facility] ([facility] Albumin/Globulin Ratio 0.90 1.00-1.93 Below low normal [facility] ([facility] Total Protein 7.4 GM/DL 6.4-8.2 Normal (applies to non-numeric re sults) [facility] ([facility] ID Date Data Source [id number] 10/13/2019 08:48:00 PM EDT [facility] ([facility] Name Value Range Interpretation Code Description Data Joyce rce(s) Supporting Document(s) MB/CK Relative Index 1.33 Normal (applies to non-num trish results) [facility] ([facility] <content>DIAGNOSIS CRITERIA</content>
<content>MMB ng/ml Relative Index (RI)</content>
<content>NON-AMI < or = 5 N/A</content>
<content>HARDY ZONE > 5 < or = 4</content>
<content>AMI > 5 > 4</content>
<content></content> CPK Creatine Phosphokinase 75 U/L 26-192 Piedad l (applies to non-numeric results) [facility] ([facility] CK-MB Value [place] Laboratory test result Normal ( applies to non-numeric results) [facility] ([facility] ) Troponin I Laboratory test result Normal (applies to non-n umeric results) [facility] ([facility] <content>Troponin I Reference Interval f or Siemens [place] LOCI:</content>
<content></content>
<content>99th Percentile= 0.00-0.045 ng/ml</content>
<content></content>
<content>Risk Stratification:</content>
<content><= 0.10 ng/ml Decreased Risk for Adverse Clinical</content>
<content>Events.</content>
<content>0.10-1.50 ng/ml Increased Risk for Adverse Clinical</content>
<content>Events. Evaluation of additional</content>
<content>criterion and/or repeat testing in 2-6</content>
<content>hours is suggested to rule out myocardial</content>
<content>damage.</content>
<content>>= 1.50 ng/ml Indicative of Myocardial Injury.</content>
<content></content> ID Date Data Source [id number] 10/13/2019 08:48:00 PM EDT [facility] ([facility] Name Value Range Interpretation Code Description Data Joyce rce(s) Supporting Document(s) Red Blood Count 5.05 10 4.00-5.40 Normal (applies to non-numeric results) [facility] ([facility] White Blood Count 4.1 10 4.0-10.0 Normal (applies to non-numeri c results) [facility] ([facility] Mean Corpuscular Volume 79.4 [...] % 36.0-66.0 Above high normal [facility] NT ([facility] [place] % 5.9 % 0.0-5.0 Above high normal [facility] ([facility] Baso % 0.2 % 0.0-1.0 Normal (applies to non-numeric resul ts) [facility] ([facility] Nucleated Red Blood Cell % 0.0 % 0-0 Normal (applies to n on-numeric results) [facility] ([facility] Immature Granulocyte % 0.5 % 0-3.0 Normal (applies to non-n umeric results) [facility] ([facility] Lymph # 0.6 10 1.5-5.0 Below low normal [facility] ( [facility] [place] # 0.2 10 0.0-0.8 Normal (applies to non-numeric resul ts) [facility] ([facility] Eos # 0.1 10 0.0-0.5 Normal (applies to non-numeric resul ts) [facility] ([facility] Neutrophils # 3.1 10 1.5-8.5 Normal (applies to non-numeric re sults) [facility] ([facility] [facility] Baso # 0.0 10 0.0-0.2 Normal (applies to non-numeric resul ts) [facility] ([facility] ID Date Data Source [id number] 10/13/2019 12:33:00 PM EDT MEDENT ([facility] Name Value Range Interpretation Code Description Data Joyce rce(s) Supporting Document(s) Prothrombin Time 32.8 s 11.8-14.0 Above high normal M EDENT ([facility] Inr 3.21 Normal (applies to non-numeric resul ts) [facility] ([facility] THERAPUTIC HUMAN INR VALUES INDICATIONS NORMAL RANGES PROPHYLAXIS/TREATMENT OF: VENOUS THROMBOSIS 2.0-3.0 PULMONARY EMBOLISM 2.0-3.0 PREVENTION OF SYSTEMIC EMBOLISM FROM: TISSUE HEART VALVES 2.0-3.0 ACUTE MYOCARDIAL INFARCTION 2.0-3.0 VALVULAR HEART DISEASE 2.0-3.0 ATRIAL FIBRILLATION 2.0-3.0 MECHANICAL VALVES(HIGH RISK) 2.5-3.5 RECURRENT MYOCARDIAL INFARCTION 2.5-3.5 ID Date Data Source [id number] 10/13/2019 12:33:00 PM EDT [facility] ([facility] Name Value Range Interpretation Code Description Data Joyce rce(s) Supporting Document(s) Lymph % 21.5 % 24.0-44.0 Below low normal MED[facility] ( [facility] Neutrophils % 67.3 % 36.0-66.0 Above high normal MEDE NT ([facility] [place] % 7.2 % 0.0-5.0 Above high normal [facility] ([facility] Immature Granulocyte % 0.5 % 0-3.0 Normal (applies to non-n umeric results) [facility] ([facility] Baso % 0.3 % 0.0-1.0 Normal (applies to non-numeric resul ts) [facility] ([facility] Eos % 3.2 % 0.0-3.0 Above high normal [facility] ([facility] [place] # 0.3 10 0.0-0.8 Normal (applies to [...] [facility] ID Date Data Source [id number] 10/13/2019 12:33:00 PM EDT [facility] ([facility] Name Value Range Interpretation Code Description Data Joyce rce(s) Supporting Document(s) Red Blood Count 5.07 10 4.00-5.40 Normal (applies to non-numeric results) [facility] ([facility] White Blood Count 3.8 10 4.0-10.0 Below low normal M EDENT ([facility] Hematocrit 40.9 % 36.0-47.0 Normal (applies to non-numeric resul ts) [facility] ([facility] Mean Corpuscular Volume 80.7 fl 80.0-96.0 Normal ( applies to non-numeric results) [facility] ([facility] ) Hemoglobin 12.8 g/dL 12.0-15.5 Normal (applies to non-numeric resul ts) [facility] ([facility] Mean Corpuscular Hemoglobin 25.2 pg 27.0-33.0 Below low normal [facility] ([facility] Red Cell Distribution Width 14.1 % 11.5-14.5 Norm al (applies to non-numeric results) [facility] ([facility] ) Platelet Count, Automated 168 10 150-450 Normal (applies to non-numeric results) [facility] ([facility] ) Mean Corpuscular HGB Conc 31.3 g/dL 32.0-36.5 Below low normal [facility] ([facility] Nucleated Red Blood Cell % 0.0 % 0-0 Normal (applies to n on-numeric results) [facility] ([facility] ID Date Data Source [id number] 10/01/2019 11:43:00 AM EST MEDENT ([facility] Name Value Range Interpretation Code Description Data Joyce rce(s) Supporting Document(s) Inr 2.62 Normal (applies to non-numeric resul ts) [facility] ([facility] THERAPUTIC HUMAN INR VALUES INDICATIONS NORMAL RANGES PROPHYLAXIS/TREATMENT OF: VENOUS THROMBOSIS 2.0-3.0 PULMONARY EMBOLISM 2.0-3.0 PREVENTION OF SYSTEMIC EMBOLISM FROM: TISSUE HEART VALVES 2.0-3.0 ACUTE MYOCARDIAL INFARCTION 2.0-3.0 VALVULAR HEART DISEASE 2.0-3.0 ATRIAL FIBRILLATION 2.0-3.0 MECHANICAL VALVES(HIGH RISK) 2.5-3.5 RECURRENT MYOCARDIAL INFARCTION 2.5-3.5 Prothrombin Time 27.9 s 11.8-14.0 Above high normal [facility] ID Date Data Source [id number] 09/24/2019 11:46:00 AM EST DILMA ([facility] Name Value Range Interpretation Code Description Data Joyce rce(s) Supporting Document(s) Glucose, Fasting 85 mg/dL 70-100 Normal (applies to non-numeric results) [facility] ([facility] Creatinine For GFR 0.78 mg/dL 0.55-1.30 Normal (applies to non -numeric results) [facility] ([facility] Blood Urea Nitrogen 16 mg/dL 7-18 Normal (applies to non-nume elías results) DILMA ([facility] Glomerular Filtration Rate Laboratory test result Normal (applies to non- numeric results) DILMA ([facility] ) <content>Units are mL/min/1.73 m2</content>
<content></content>
<content>Chronic Kidney Disease Staging per NKF:</content>
<content></content>
<content>Stage I & II GFR >=60 Normal to Mildly Decreased</content>
<content>Stage III GFR 30-59 Moderately Decreased</content>
<content>Stage IV GFR 15-29 Severely Decreased</content>
<content>Stage V GFR <15 Very Little GFR Left</content>
<content>ESRD GFR <15 on VP PURCHASING</content>
<content></content> Sodium Level 141 meq/L 136-145 Normal (applies to non-numeric res ults) [facility] ( [facility] Potassium Serum 3.7 meq/L 3.5-5.1 Normal (applies to non-numeric results) [facility]IL[facility] ([facility] Carbon Dioxide Level 30 meq/L 21-32 Normal (applies to non-num trish results) DILMA ([facility] Chloride Level 107 meq/L 98-107 Normal (applies to non-numeric r esults) [facility] ([facility] Anion Gap 4 meq/L 8-16 Below low normal MED[facility] ( [facility] Calcium Level 8.7 mg/dL 8.5-10.1 Normal (applies to non-numeric re sults) [facility] ([facility] ID Date Data Source [id number] 09/24/2019 11:31:00 AM EST MEDENT ([facility] [employer] [facility] Name Value Range Interpretation Code Description Data Joyce rce(s) Supporting Document(s) Prothrombin Time 32.5 s 11.8-14.0 Above high normal M EDENT ([facility] Inr 3.17 Normal (applies to non-numeric resul ts) [facility] ([facility] THERAPUTIC HUMAN INR VALUES INDICATIONS NORMAL RANGES PROPHYLAXIS/TREATMENT OF: VENOUS THROMBOSIS 2.0-3.0 PULMONARY EMBOLISM 2.0-3.0 PREVENTION OF SYSTEMIC EMBOLISM FROM: TISSUE HEART VALVES 2.0-3.0 ACUTE MYOCARDIAL INFARCTION 2.0-3.0 VALVULAR HEART DISEASE 2.0-3.0 ATRIAL FIBRILLATION 2.0-3.0 MECHANICAL VALVES(HIGH RISK) 2.5-3.5 RECURRENT MYOCARDIAL INFARCTION 2.5-3.5 ID Date Data Source [id number] 09/17/2019 10:02:00 AM EST MEDENT ([facility] [employer] [facility] Name Value Range Interpretation Code Description Data Joyce rce(s) Supporting Document(s) Inr 2.91 Normal (applies to non-numeric resul ts) [facility] ([facility] THERAPUTIC HUMAN INR VALUES INDICATIONS NORMAL RANGES PROPHYLAXIS/TREATMENT OF: VENOUS THROMBOSIS 2.0-3.0 PULMONARY EMBOLISM 2.0-3.0 PREVENTION OF SYSTEMIC EMBOLISM FROM: TISSUE HEART VALVES 2.0-3.0 ACUTE MYOCARDIAL INFARCTION 2.0-3.0 VALVULAR HEART DISEASE 2.0-3.0 ATRIAL FIBRILLATION 2.0-3.0 MECHANICAL VALVES(HIGH RISK) 2.5-3.5 RECURRENT MYOCARDIAL INFARCTION 2.5-3.5 Prothrombin Time 30.3 s 11.8-14.0 Above high normal M EDENT ([facility] ID Date Data Source [id number] 09/10/2019 10:04:00 AM EST [facility] ([facility] Name Value Range Interpretation Code Description Data Joyce rce(s) Supporting Document(s) Prothrombin Time 29.0 s 11.8-14.0 Above high normal M EDENT ([facility] Inr 2.75 Normal (applies to non-numeric resul ts) [facility] ([facility] THERAPUTIC HUMAN INR VALUES INDICATIONS NORMAL RANGES PROPHYLAXIS/TREATMENT OF: VENOUS THROMBOSIS 2.0-3.0 PULMONARY EMBOLISM 2.0-3.0 PREVENTION OF SYSTEMIC EMBOLISM FROM: TISSUE HEART VALVES 2.0-3.0 ACUTE MYOCARDIAL INFARCTION 2.0-3.0 VALVULAR HEART DISEASE 2.0-3.0 ATRIAL FIBRILLATION 2.0-3.0 MECHANICAL VALVES(HIGH RISK) 2.5-3.5 RECURRENT MYOCARDIAL INFARCTION 2.5-3.5 ID Date Data Source [id number] 09/03/2019 12:58:00 PM EST [facility] ([facility] Name Value Range Interpretation Code Description Data Joyce rce(s) Supporting Document(s) Inr 2.72 Normal (applies to non-numeric resul ts) [facility] ([facility] THERAPUTIC HUMAN INR VALUES INDICATIONS NORMAL RANGES PROPHYLAXIS/TREATMENT OF: VENOUS THROMBOSIS 2.0-3.0 PULMONARY EMBOLISM 2.0-3.0 PREVENTION OF SYSTEMIC EMBOLISM FROM: TISSUE HEART VALVES 2.0-3.0 ACUTE MYOCARDIAL INFARCTION 2.0-3.0 VALVULAR HEART DISEASE 2.0-3.0 ATRIAL FIBRILLATION 2.0-3.0 MECHANICAL VALVES(HIGH RISK) 2.5-3.5 RECURRENT MYOCARDIAL INFARCTION 2.5-3.5 Prothrombin Time 28.7 s 11.8-14.0 Above high normal M EDENT ([facility] ID Date Data Source [id number] 08/28/2019 12:54:00 PM EST [facility] ([facility] Name Value Range Interpretation Code Description Data Joyce rce(s) Supporting Document(s) Prothrombin Time 27.9 s 11.8-14.0 Above high normal M EDENT ([facility] Inr 2.63 Normal (applies to non-numeric resul ts) [facility] ([facility] THERAPUTIC HUMAN INR VALUES INDICATIONS NORMAL RANGES PROPHYLAXIS/TREATMENT OF: VENOUS THROMBOSIS 2.0-3.0 PULMONARY EMBOLISM 2.0-3.0 PREVENTION OF SYSTEMIC EMBOLISM FROM: TISSUE HEART VALVES 2.0-3.0 ACUTE MYOCARDIAL INFARCTION 2.0-3.0 VALVULAR HEART DISEASE 2.0-3.0 ATRIAL FIBRILLATION 2.0-3.0 MECHANICAL VALVES(HIGH RISK) 2.5-3.5 RECURRENT MYOCARDIAL INFARCTION 2.5-3.5 ID Date Data Source [id number] 08/24/2019 10:39:00 AM EST [facility] ([facility], ) Name Value Range Interpretation Code Description Data Joyce rce(s) Supporting Document(s) Laboratory test finding (navigational concept) Laboratory test r esult Abnormal (applies to non-numeric results) [facility] ([facility], ) Laboratory test finding (navigational concept) Laboratory test result [facility] ([facility], ) Performed at: [facility] [address] [id number] Well Puller: Stacey Avelar MD, Phone: [phone] Performed at: [facility] [address] [id number] Well Puller: Avinash Piedra MD, Phone: [phone] ID Date Data Source [id number] 08/24/2019 10:39:00 AM EST [facility] ([facility], ) Name Value Range Interpretation Code Description Data Joyce rce(s) Supporting Document(s) Antinuclear Antibodies Direct Laboratory test result Abnormal (applies to non- numeric results) [facility] ([facility], ) Anti Double Strand-Dna AB 6 IU/ml 0-9 MEDE NT ([facility], ) <content>Negative <5</content>
<content>Equivocal 5 - 9</content>
<content>Positive >9</content>
<content></content> Morocho Antibodies Laboratory test result 0.0-0.9 MEDENT ([facility], ) DIFFERENTIAL SPECIALIST Antibodies Laboratory test result 0.0-0.9 MEDENT ([facility], ) Sjogren's Anti SS-A Laboratory test result 0.0-0.9 MED[facility] ([facility], ) Sjogren's Anti SS-B Laboratory test result 0.0-0.9 MEDENT ([facility], ) Kady Comment Laboratory test result RENITA Bryant ([facility]) . Autoantibody Disease Association Condition Frequency -------- [...] (anti-Morocho) SLE 15 - 30% ------- --------- DIFFERENTIAL SPECIALIST Mixed Connective Tissue Disease 95% (U1 nRNP, SLE 30 - 50% anti-ribonucleoprotein) Polymyositis and/or Dermatomyositis 20% -------- --------- Scl-70 (antiDNA Scleroderma (diffuse) 20 - 35% topoisomerase) Crest 13% -------- --------- Dakota-1 Polymyositis and/or Dermatomyositis 20 - 40% -------- --------- Centromere B Scleroderma - Crest variant 80% ID Date Data Source [id number] 08/24/2019 10:39:00 AM EST [facility] ([facility], ) Name Value Range Interpretation Code Description Data Joyce rce(s) Supporting Document(s) Thiamine [Mass/volume] in Blood 101.5 nmol/L 66.5-200.0 [facility] ([facility], ) Specimen Comment: Test(s) 222107-Katcxvi E(Alpha Tocopherol); 581250- Specimen Comment: Vitamin E(Gamma Tocopherol); 940811-Dmawvpe B6; 686564- Specimen Comment: Vit. B1, Whole Blood Specimen Comment: was developed and its performance characteristics Specimen Comment: determined by [employer]. It has not been cleared or approved Specimen Comment: by the Food and Drug Administration. Pyridoxine [Mass/volume] in Serum or Plasma 6.9 ug/L 2.0-32.8 MEDENT ([facility], ) Specimen Comment: Test(s) 156774-Omjnhaf E(Alpha Tocopherol); 148868- Specimen Comment: Vitamin E(Gamma Tocopherol); 368113-Zypqtfg B6; 254459- Specimen Comment: Vit. B1, Whole Blood Specimen Comment: was developed and its performance characteristics Specimen Comment: determined by [facility]. It has not been cleared or approved Specimen Comment: by the Food and Drug Administration. ID Date Data Source [id number] 08/24/2019 10:39:00 AM EST MEDENT ([facility], ) Name Value Range Interpretation Code Description Data Joyce rce(s) Supporting Document(s) Vitamin E(Alpha Tocopherol) 7.1 mg/L 7.0-25.1 [facility] ([facility], ) Vitamin E(Gamma Tocopherol) 1.3 mg/L 0.5-5.5 [facility] ([facility], ) Reference intervals for alpha and gamma- tocopherol determined from National Health and Nutrition Examination Survey, 1972-2089. Individuals with alpha-tocopherol levels less than 5.0 mg/L are considered vitamin E deficient. ID Date Data Source [id number] 08/24/2019 10:39:00 AM EST MEDENT ([facility], ) Name Value Range Interpretation Code Description Data Joyce rce(s) Supporting Document(s) Reagin Ab [Presence] in Serum by RPR Laboratory test result [facility] ([facility], ) Rheumatoid factor [Units/volume] in Serum or Plasma Laboratory test result [facility] ([facility], ) ID Date Data Source [id number] 08/24/2019 10:39:00 AM EST MEDENT ([facility], ) Name Value Range Interpretation Code Description Data Joyce rce(s) Supporting Document(s) Vitamin B12 Level 448 pg/mL MEDENT ([facility], ) VITAMIN B12 NORMAL RANGE NORMAL 247 - 911 PG/ML INDETERMINATE 211 - 246 PG/ML DEFICIENT LESS THAN 211 PG/ML Folate 8.1 ng/mL MEDENT ([facility], ) FOLATE NORMAL RANGE NORMAL GREATER THAN 5.4 NG/ML INDETERMINATE 3.4-5.4 NG/ML DEFICIENT LESS THAN 3.4 NG/ML ID Date Data Source [id number] 08/24/2019 10:39:00 AM EST MEDENT ([facility], ) Name Value Range Interpretation Code Description Data Joyce rce(s) Supporting Document(s) Thyrotropin [Units/volume] in Serum or Plasma 1.250 uIU/ML 0.358-3.74 0 MEDENT ([facility]) ID Date Data Source [id number] 08/24/2019 10:39:00 AM EST MEDENT ([facility], ) Name Value Range Interpretation Code Description Data Joyce rce(s) Supporting Document(s) Blood Urea Nitrogen 16 mg/dL 7-18 MED[facility] ([facility], ) Glucose, Fasting 92 mg/dL 70-100 [facility] ([facility]) Creatinine For GFR 0.78 mg/dL 0.55-1.30 [facility] ([facility]) Glomerular Filtration Rate Laboratory test result MED[facility] ([facility]) <content>Units are mL/min/1.73 m2</content>
<content></content>
<content>Chronic Kidney Disease Staging per NKF:</content>
<content></content>
<content>Stage I & II GFR >=60 Normal to Mildly Decreased</content>
<content>Stage III GFR 30- 59 Moderately Decreased</content>
<content>Stage IV GFR 15-29 Severely Decreased</content>
<content>Stage V GFR <15 Very Little GFR Left</content>
<content>ESRD GFR <15 on VP PURCHASING</content>
<content></content> Potassium Serum 3.6 meq/L 3.5-5.1 MED[facility] ([facility]) Sodium Level 139 meq/L 136-145 [facility] ([facility]) Chloride Level 104 meq/L 98-107 [facility] ([facility]) Carbon Dioxide Level 29 meq/L 21-32 [facility] ([facility]) Anion Gap 6 meq/L 8-16 [facility] ([facility]) Calcium Level 8.7 mg/dL 8.5-10.1 MED[facility] ([facility]) Alt/SGPT 22 U/L 12-78 [facility] Alkaline Phosphatase 63 U/L 45-117 MED[facility] ([facility]) Ast/Sgot 12 U/L 7-37 MED[facility] ([facility]) Albumin 3.5 GM/DL 3.2-5.2 [facility] ([facility]) Total Protein 7.1 GM/DL 6.4-8.2 MEDENT ([facility], ) Bilirubin,Total 0.3 mg/dL 0.2-1.0 MED[facility] ([facility]) Albumin/Globulin Ratio 0.97 1.00-1.93 MED[facility] ([facility]) ID Date Data Source [id number] 08/24/2019 10:39:00 AM EST MED[facility] ([facility]) Name Value Range Interpretation Code Description Data Joyce rce(s) Supporting Document(s) Erythrocyte sedimentation rate by 2H Westergren method 20 mm/hr 0-2 0 MEDENT ([facility]) ID Date Data Source [id number] 08/24/2019 10:39:00 AM EST MEDENT ([facility]) Name Value Range Interpretation Code Description Data Joyce rce(s) Supporting Document(s) White Blood Count 3.7 10 4.0-10.0 MED[facility] ([facility], ) Hemoglobin 12.3 g/dL 12.0-15.5 MED[facility] ([facility]) Red Blood Count 4.76 10 4.00-5.40 MED[facility] ([facility]) Mean Corpuscular Hemoglobin 25.8 pg 27.0-33.0 MED[facility] ([facility]) Mean Corpuscular Volume 80.7 fl 80.0-96.0 M EDENT ([facility]) Hematocrit 38.4 % 36.0-47.0 MED[facility] ([facility]) Mean Corpuscular HGB Conc 32.0 g/dL 32.0-36.5 MED[facility] ([facility]) Red Cell Distribution Width 14.1 % 11.5-14.5 MED[facility] ([facility]) Platelet Count, Automated 158 10 150-450 MED[facility] ([facility]) [place] % 7.5 % 0.0-5.0 MED[facility] ([facility]) Lymph % 19.4 % 24.0-44.0 MED[facility] ([facility]) Neutrophils % 69.3 % 36.0-66.0 MED[facility] ([facility]) Immature Granulocyte % 0.3 % 0-3.0 MED[facility] ([facility]) Baso % 0.3 % 0.0-1.0 MED[facility] ([facility]) Eos % 3.2 % 0.0-3.0 MED[facility] ([facility]) Neutrophils # 2.6 10 1.5-8.5 MED[facility] ([facility]) Nucleated Red Blood Cell % 0.0 % 0-0 MED ENT ([facility]) [place] # 0.3 10 0.0-0.8 MEDENT ([facility]) Lymph # 0.7 10 1.5-5.0 MED[facility] ([facility]) Baso # 0.0 10 0.0-0.2 [facility] ([facility]) Eos # 0.1 10 0.0-0.5 MED[facility] ([facility]) ID Date Data Source [id number] 08/24/2019 10:39:00 AM EST MED[facility] ([facility]) Name Value Range Interpretation Code Description Data Joyce rce(s) Supporting Document(s) Hemoglobin A1c 5.6 % MEDENT ([facility]) REFERENCE RANGES: 4.5-5.6% NORMAL 5.7-6.4% SUGGESTS IMPAIRED GLUCOSE META BOLISM >= 6.5% ABNORMAL Estimated Average Glucose 114 mg/dL 60-110 MEDENT ([facility]) ID Date Data Source [id number] 08/24/2019 10:39:00 AM EST MED[facility] ([facility] Name Value Range Interpretation Code Description Data Joyce rce(s) Supporting Document(s) Vitamin E(Alpha Tocopherol) 7.1 mg/L 7.0-25.1 Norm al (applies to non-numeric results) MED[facility] ([facility] ) Vitamin E(Gamma Tocopherol) 1.3 mg/L 0.5-5.5 Norm al (applies to non-numeric results) MED[facility] ([facility] ) Reference intervals for alpha and gamma- tocopherol determined from National Health and Nutrition Examination Survey, 9790-4504. Individuals with alpha-tocopherol levels less than 5.0 mg/L are considered vitamin E deficient. ID Date Data Source [id number] 08/24/2019 10:39:00 AM EST MEDENT ([facility] [employer] [facility] Name Value Range Interpretation Code Description Data Joyce rce(s) Supporting Document(s) Rheumatoid factor [Units/volume] in Serum or Plasma Laboratory t est result Normal (applies to non-numeric results) [facility] ([facility] Reagin Ab [Presence] in Serum by RPR Laboratory test result Normal (applies to non-numeric results) [facility] ([facility] ID Date Data Source [id number] 08/24/2019 10:39:00 AM EST [facility] ([facility] Name Value Range Interpretation Code Description Data Joyce rce(s) Supporting Document(s) Vitamin B12 Level 448 pg/mL Normal (applies to non-numeri c results) [facility] ([facility] VITAMIN B12 NORMAL RANGE NORMAL 247 - 911 PG/ML INDETERMINATE 211 - 246 PG/ML DEFICIENT LESS THAN 211 PG/ML Folate 8.1 ng/mL Normal (applies to non-numeric resul ts) [facility] ([facility] FOLATE NORMAL RANGE NORMAL GREATER THAN 5.4 NG/ML INDETERMINATE 3.4-5.4 NG/ML DEFICIENT LESS THAN 3.4 NG/ML ID Date Data Source [id number] 08/24/2019 10:39:00 AM EST [facility] ([facility] Name Value Range Interpretation Code Description Data Joyce rce(s) Supporting Document(s) Thyrotropin [Units/volume] in Serum or Plasma 1.250 uIU/ML 0. 358-3.740 Normal (applies to non-numeric results) [facility] ([facility] ID Date Data Source [id number] 08/24/2019 10:39:00 AM EST [facility] ([facility] Name Value Range Interpretation [...] Little GFR Left</content>
<content>ESRD GFR <15 on VP PURCHASING</content>
<content></content> Potassium Serum 3.6 meq/L 3.5-5.1 Normal [...] Normal (applies to non-numeric resul ts) [facility] ([facility] Ast/Sgot 12 U/L 7-37 Normal (applies to non-numeric resul ts) [facility] ([facility] Alkaline Phosphatase 63 U/L 45-117 Normal (applies to non-num trish results) [facility] ([facility] Total Protein 7.1 GM/DL 6.4-8.2 Normal (applies to non-numeric re sults) [facility] ([facility] Albumin/Globulin Ratio 0.97 1.00-1.93 Below low normal [facility] ([facility] Bilirubin,Total 0.3 mg/dL 0.2-1.0 Normal (applies to non-numeric results) [facility] ([facility] Albumin 3.5 GM/DL 3.2-5.2 Normal (applies to non-numeric resul ts) [facility] ([facility] ID Date Data Source [id number] 08/24/2019 10:39:00 AM EST [facility] ([facility] Name Value Range Interpretation Code Description Data Joyce rce(s) Supporting Document(s) Erythrocyte sedimentation rate by Westergren method 20 mm/hr 0-20 Normal (applies to non-numeric results) [facility] ([facility] ID Date Data Source [id number] 08/24/2019 10:39:00 AM EST [facility] ([facility] Name Value Range Interpretation Code Description Data Joyce rce(s) Supporting Document(s) Laboratory test finding (navigational concept) Laboratory test r esult Above high normal [facility] [facility] ) Performed at: - [facility] [address] [id number] Well Puller: Stacey Avelar MD, Phone: [phone] Performed at: - [facility] [address] [id number] Well Puller: Avinash Piedra MD, Phone: [phone] Laboratory test finding (navigational concept) Laboratory test r esult Abnormal (applies to non-numeric results) [facility] ([facility] ID Date Data Source [id number] 08/24/2019 10:39:00 AM EST [facility] ([facility] Name Value Range Interpretation Code Description Data Joyce rce(s) Supporting Document(s) Red Blood Count 4.76 10 4.00-5.40 Normal (applies to non-numeric results) [facility] ([facility] White Blood Count 3.7 10 4.0-10.0 Below low normal M EDENT ([facility] Mean Corpuscular Volume 80.7 fl 80.0-96.0 Normal ( applies to non-numeric results) [facility] ([facility] ) Mean Corpuscular Hemoglobin 25.8 pg 27.0-33.0 Below low normal [facility] ([facility] Hemoglobin 12.3 g/dL 12.0-15.5 Normal (applies to non-numeric resul ts) [facility] ([facility] Hematocrit 38.4 % 36.0-47.0 Normal (applies to non-numeric resul ts) [facility] ([facility] Red Cell Distribution Width 14.1 % 11.5-14.5 Norm al (applies to non-numeric results) [facility] ([facility] ) Platelet Count, Automated 158 10 150-450 Normal (applies to non-numeric results) [facility] ([facility] ) Mean Corpuscular HGB Conc 32.0 g/dL 32.0-36.5 Normal (applies to non-numeric results) [facility] ([facility] ) Neutrophils % 69.3 % 36.0-66.0 Above high normal MED[facility] NT ([facility] Eos % 3.2 % 0.0-3.0 Above high normal [facility] ([facility] Lymph % 19.4 % 24.0-44.0 Below low normal [facility] ( [facility] R[place] % 7.5 % 0.0-5.0 Above high normal [facility] ([facility] Immature Granulocyte % 0.3 % 0-3.0 Normal (applies to non-n umeric results) [facility] ([facility] Baso % 0.3 % 0.0-1.0 Normal (applies to non-numeric resul ts) [facility] ([facility] Nucleated Red Blood Cell % 0.0 % 0-0 Normal (applies to n on-numeric results) [facility] ([facility] [place] # 0.3 10 0.0-0.8 Normal (applies to non-numeric resul ts) [facility] ([facility] Lymph # 0.7 10 1.5-5.0 Below low normal [facility] ( [facility] Neutrophils # 2.6 10 1.5-8.5 Normal (applies to non-numeric re sults) [facility] ([facility] Eos # 0.1 10 0.0-0.5 Normal (applies to non-numeric resul ts) [facility] ([facility] Baso # 0.0 10 0.0-0.2 Normal (applies to non-numeric resul ts) [facility] ([facility] ID Date Data Source [id number] 08/24/2019 10:39:00 AM EST [facility] ([facility] Name Value Range Interpretation Code Description Data Joyce rce(s) Supporting Document(s) Estimated Average Glucose 114 mg/dL 60-110 Above high normal [facility] ([facility] Hemoglobin A1c 5.6 % Normal (applies to non-numeric r esults) [facility] ([facility] REFERENCE RANGES: 4.5-5.6% NORMAL 5.7-6.4% SUGGESTS IMPAIRED GLUCOSE META BOLISM >= 6.5% ABNORMAL ID Date Data Source [id number] 08/24/2019 10:39:00 AM EST [facility] ([facility] Name Value Range Interpretation Code Description Data Joyce rce(s) Supporting Document(s) Vitamin B1 Level Whole Blood 101.5 nmol/L 66.5-200.0 Nor mal (applies to non- numeric results) [facility] ([facility] Specimen Comment: Test(s) 956873-Eiwyqzd E(Alpha Tocopherol); 741907- Specimen Comment: Vitamin E(Gamma Tocopherol); 826750-Lcfpwyg B6; 112778- Specimen Comment: Vit. B1, Whole Blood Specimen Comment: was developed and its performance characteristics Specimen Comment: determined by [facility]. It has not been cleared or approved Specimen Comment: by the Food and Drug Administration. Pyridoxine [Mass/volume] in Serum or Plasma 6.9 ug/L 2.0- 32.8 Normal (applies to non-numeric results) [facility] ([facility] Specimen Comment: Test(s) 729208-Ofvgrqc E(Alpha Tocopherol); 646344- Specimen Comment: Vitamin E(Gamma Tocopherol); 887851-Obnwfyz B6; 193604- Specimen Comment: Vit. B1, Whole Blood Specimen Comment: was developed and its performance characteristics Specimen Comment: determined by [facility]. It has not been cleared or approved Specimen Comment: by the Food and Drug Administration. ID Date Data Source [id number] 08/24/2019 10:39:00 AM EST [facility] Name Value Range Interpretation Code Description Data Joyce rce(s) Supporting Document(s) DIFFERENTIAL SPECIALIST Antibodies Laboratory test result 0.0-0.9 Normal (a pplies to non-numeric results) [facility] ([facility] ) Antinuclear Antibodies Direct Laboratory test result Abnormal (applies to non- numeric results) [facility] ([facility] Anti Double Strand-Dna AB 6 IU/ml 0-9 Normal (applies to no n-numeric results) [facility] ([facility] <content>Negative <5</content>
<content>Equivocal 5 - 9</content>
<content>Positive >9</content>
<content></content> Kady Comment Laboratory test result Normal (applies to non- numeric results) [facility] ([facility] . Autoantibody Disease Association Condition [...] (anti-Morocho) SLE 15 - 30% ------- --------- DIFFERENTIAL SPECIALIST Mixed Connective Tissue Disease 95% (U1 nRNP, SLE 30 - 50% anti-ribonucleoprotein) Polymyositis and/or Dermatomyositis 20% -------- --------- Scl-70 (antiDNA Scleroderma (diffuse) 20 - 35% topoisomerase) Crest 13% -------- --------- Dakota-1 Polymyositis and/or Dermatomyositis 20 - 40% -------- --------- Centromere B Scleroderma - Crest variant 80% Sjogren's Anti SS-A Laboratory test result 0.0-0.9 Above high norm al D[facility] ([facility] Sjogren's Anti SS-B Laboratory test result 0.0-0.9 Piedad l (applies to non- numeric results) [facility] ([facility] ) Morocho Antibodies Laboratory test result 0.0-0.9 Normal ( applies to non-numeric results) [facility] ([facility] ) ID Date Data Source [id number] 08/22/2019 02:01:00 PM EST [facility] ([facility] Name Value Range Interpretation Code Description Data Joyce rce(s) Supporting Document(s) Prothrombin Time 24.2 s 11.8-14.0 Above high normal M EDVANESSA ([facility] Inr 2.20 Normal (applies to non-numeric resul ts) [facility] ([facility] THERAPUTIC HUMAN INR VALUES INDICATIONS NORMAL RANGES PROPHYLAXIS/TREATMENT OF: VENOUS THROMBOSIS 2.0-3.0 PULMONARY EMBOLISM 2.0-3.0 PREVENTION OF SYSTEMIC EMBOLISM FROM: TISSUE HEART VALVES 2.0-3.0 ACUTE MYOCARDIAL INFARCTION 2.0-3.0 VALVULAR HEART DISEASE 2.0-3.0 ATRIAL FIBRILLATION 2.0-3.0 MECHANICAL VALVES(HIGH RISK) 2.5-3.5 RECURRENT MYOCARDIAL INFARCTION 2.5-3.5 ID Date Data Source [id number] 08/21/2019 07:47:27 AM EST [facility] Name Value Range Interpretation Code Description Data Joyce rce(s) Supporting Document(s) Progress Note [facility] FTBSTh5pAeDYNtCk03/WRDopMJJof6FuRDhcIKs0OMdxVBXwA0QoXNQ4aC2aKXD6FBfNOhJoJaXpVZOb lbm [file] AgICAgICAgICAgICAgICAgICAgICAgICAgICAgICAgICAgICAgICAgICAgICAgICAgICAgICAgICAgIC AgICAgICAgICAgICAgICAgICAgICAgICAgICAgICAgDQogICAgICAgICAgICAgICAgICAgICAgICAgIC AgICAgICAgICAgICAgICAgICAgICAgICAgICAgICAg ICAgICAgICAgICAgICAgICAgICAgICAgICAgICAgICAgICAgICAgICAgDQogICAgICAgICAgICAgICAg ICAgICAgICAgICAgICAgICAgICAgICAgICAgICAgICAgICAgICAgICAgICAgICAgICAgICAgICAgICAg ICAgICAgICAgICAgICAgICAgICAgICAgDQogICAgIC AgICAgICAgICAgICAgICAgICAgICAgICAgICAgICAgICAgICAgICAgICAgICAgICAgICAgICAgICAgIC AgICAgICAgICAgICAgICAgICAgICAgICAgICAgICAgICAgDQogICAgICAgICAgICAgICAgICAgICAgIC AgICAgICAgICAgICAgICAgICAgICAgICAgICAgICAg ICAgICAgICAgICAgICAgICAgICAgICAgICAgICAgICAgICAgICAgICAgICAgDQogICAgICAgICAgICAg ICAgICAgICAgICAgICAgICAgICAgICAgICAgICAgICAgICAgICAgICAgICAgICAgICAgICAgICAgICAg ICAgICAgICAgICAgICAgICAgICAgICAgICAgDQogIC AgICAgICAgICAgICAgICAgICAgICAgICAgICAgICAgICAgICAgICAgICAgICAgICAgICAgICAgICAgIC AgICAgICAgICAgICAgICAgICAgICAgICAgICAgICAgICAgICAgDQogICAgICAgICAgICAgICAgICAgIC AgICAgICAgICAgICAgICAgICAgICAgICAgICAgICAg ICAgICAgICAgICAgICAgICAgICAgICAgICAgICAgICAgICAgICAgICAgICAgICAgDQogICAgICAgICAg ICAgICAgICAgICAgICAgICAgICAgICAgICAgICAgICAgICAgICAgICAgICAgICAgICAgICAgICAgICAg ICAgICAgICAgICAgICAgICAgICAgICAgICAgICAgDQ ogICAgICAgICAgICAgICAgICAgICAgICAgICAgICAgICAgICAgICAgICAgICAgICAgICAgICAgICAgIC KuUHEzAZYbCRThTEHyJKZpVXFkTFSsUNBnDMZiBZXrBDEdBLKyUQReJZq6L5fePDQiOPZnSH0oKFn2Ry 8+EGbQXsXpYHV2lpYynT4KTU3lo7FrPOrhSENpo1An YTn3EB2HDXHsNCigWX5XINunrs5TLWLdTESygYFBe9skWrVcYFS6MDToUzxqAS2GJTBnB7yqieWmWTDo KIHPICzfOJHHGIbsDTDTUJEyYDSmSdZnWjJkZCMpHWNuEJIDYH7ABmWdW0DnoG11ORYYBj5+DQplbmRv CdcVRjHmZAYys4QkOBm3XD1RFDPxZgdav7UnRqGhVT EPOBurFM6IDHO8AYFoUCVjYq1YMJDtL783dxPvQZ3WYv9PUjJbQN4ats7YHiNyMGFqAdjFIpb9CFdfIH 6BaEKuOSwCod1knwRepaPPz6OqnlTiqWXRl0TwchMaVGFYf6DzQFKONJPtiQFaWaS8JqHzSqCxUHV1AK WwAW7kGTnhNR0ZOAJ8RKdoBNTiNFWsD3eBBdXgJFPp ZsJzvVulOO7ELoHrQ9IdjzDxhHJqCwHgUOUMEh5+STbrdmPkKhvBXkM3VUVkj0VoVYe1MK2IIAJvTMbz PJ4BRZQqjR7oPRxvYF3XTbBlTSLoEAXORqGsS71yuCPvRFv5Q5FxIuEaLHZnXyhmUYLlBPorSxKhIRKq WyBdDQogID4+ID4+LNhiMA0GHOmwwlGuUULlKs6HON XwWBEfHS9gLVWgBBDgE3R2oBkpBPVIVmHwL2gqbhlqSF4yIPUkS490kPjgmuRrZRJsZFPwEb7TOPSbDW D5IZWhuSAvSnXcEWEQDNbvYE8JaOLnSFQ0iX7dAIstSWRsEPNrJ5bXTrHzkGccFL78kGysyzOplAWaRU o+Ae1ROM4ml1CoKYx8ayNdWXfjQGY7ASrwECJsXWTx LWWlTKT8STI3SQDQRxCoNKAdCFEeCEozLGJiWPMzfv6OYDOxNDPlTLNoIYMqHSGxWWSqZLthOWOnAFS6 XMFjECXkIQNmYK0LGjLfFRZbTBCzFQnlUZXkQZVlvj9UPBPiZTAvBmH2QOHpBYDiDYBvHJkiCQQzBAKy SWU1SJPzFFBgDU6GMfBeAWVkMPWfQZGrRSRyKEBdtm 0BAOCwIXPqMvS4UvTnTJBgNNAkZMvdYGKzNUJ7EbD1IYYqFWNzHI5TVeJvJYYqVZh3KHWwQGNbNSJems 8IQKOiDMZnXRZoPxEaOPMtTFUwOWgyDOUnDHYzLVIvSXNsZXCeEE7WQxGuWFYfMVT1WVXvBKVrGGCvzy 5PWPVlJPUeCNA9BVClHGNcNGNtBKntLHGxBSP3MaD7 MIAjARUaPB9MXoDhETVgJYm1RwHgRZZkQASurr8ASRFeHDUiTOh8IZXgLIVrYXZdDEdoBRHfHWL7RKgl FSDnFMRuFU5WDlZbZEHoPUjoFqMtHVSnUDPrhn7KSSKxVPMpKRKrTjCrPNPfZSOyONqcUICyVCWxQXT1 RWXtJSDkPA2UQyHbITYiEqZ6FkWaYNDyYOZzyp3YCQ WfJYRoRzJ0NmMdPUOkCIJtHFhnSEElDJOnWhp3AUGmCKIlZC2ETcCbBQRwLfG3XJhcCRAqULXsnn3EZE DdOJYqRvgbXmKlEEIcNEBgAYvyYXYqTYHxOGswLHEhBDKaMV5NLyOvXUUzMeG4JwhzVWBjMBWnbs9JCS MeKWGlKPKoOVWlTDSbHXXoVPozHRXvAPD7JkxmLPTa MTMiVR3KEsMeIOZdRqB4XRRoEFLcQQCncg8ZYFVtIWNhGjS3RFKhQQEwQTYpYYfdDUOeKWY8WiBpCXAv UXZmZI7AYpZpTGJtMxW1XPEqBBVcOXLoio2QeZSciGxsjh7QFUnALq3WhVuqYGM2WUpsWy1ofIEbOAXa EXZMOe9JrxCzZWNiBHMTYYsnVWCgWILwBUWxZDY7VP VoHcubZMi9HWW0QVW0KWX7VeR2CVViKjW4GDYsCBH8KfNgFfNmOTZyPNKfGJXhKbh9KfqwBFn8CpZ+IF 0gDQo+Yk2Ps4FywdC0ypZaMTeqShJ1LX9WVLKKN5AVTr== ID Date Data Source [id number] 08/17/2019 11:49:00 AM EST [facility] ([facility] Name Value Range Interpretation Code Description Data Joyce rce(s) Supporting Document(s) Prothrombin Time 24.8 s 11.8-14.0 Above high normal M EDENT ([facility] Inr 2.26 Normal (applies to non-numeric resul ts) [facility] ([facility] THERAPUTIC HUMAN INR VALUES INDICATIONS NORMAL RANGES PROPHYLAXIS/TREATMENT OF: VENOUS THROMBOSIS 2.0-3.0 PULMONARY EMBOLISM 2.0-3.0 PREVENTION OF SYSTEMIC EMBOLISM FROM: TISSUE HEART VALVES 2.0-3.0 ACUTE MYOCARDIAL INFARCTION 2.0-3.0 VALVULAR HEART DISEASE 2.0-3.0 ATRIAL FIBRILLATION 2.0-3.0 MECHANICAL VALVES(HIGH RISK) 2.5-3.5 RECURRENT MYOCARDIAL INFARCTION 2.5-3.5 ID Date Data Source [id number] 08/09/2019 09:21:00 AM EST [facility] ([facility] Name Value Range Interpretation Code Description Data Joyce rce(s) Supporting Document(s) Prothrombin Time 27.8 s 11.8-14.0 Above high normal M [facility] ([facility] Inr 2.61 Normal (applies to non-numeric resul ts) [facility] ([facility] THERAPUTIC HUMAN INR VALUES INDICATIONS NORMAL RANGES PROPHYLAXIS/TREATMENT OF: VENOUS THROMBOSIS 2.0-3.0 PULMONARY EMBOLISM 2.0-3.0 PREVENTION OF SYSTEMIC EMBOLISM FROM: TISSUE HEART VALVES 2.0-3.0 ACUTE MYOCARDIAL INFARCTION 2.0-3.0 VALVULAR HEART DISEASE 2.0-3.0 ATRIAL FIBRILLATION 2.0-3.0 MECHANICAL VALVES(HIGH RISK) 2.5-3.5 RECURRENT MYOCARDIAL INFARCTION 2.5-3.5 ID Date Data Source [id number] 08/06/2019 12:30:00 PM EST [facility] ([facility] Name Value Range Interpretation Code Description Data Joyce rce(s) Supporting Document(s) Prothrombin Time 24.9 s 11.8-14.0 Above high normal M EDENT ([facility] Inr 2.27 Normal (applies to non-numeric resul ts) [facility] ([facility] THERAPUTIC HUMAN INR VALUES INDICATIONS NORMAL RANGES PROPHYLAXIS/TREATMENT OF: VENOUS THROMBOSIS 2.0-3.0 PULMONARY EMBOLISM 2.0-3.0 PREVENTION OF SYSTEMIC EMBOLISM FROM: TISSUE HEART VALVES 2.0-3.0 ACUTE MYOCARDIAL INFARCTION 2.0-3.0 VALVULAR HEART DISEASE 2.0-3.0 ATRIAL FIBRILLATION 2.0-3.0 MECHANICAL VALVES(HIGH RISK) 2.5-3.5 RECURRENT MYOCARDIAL INFARCTION 2.5-3.5 ID Date Data Source [id number] 08/02/2019 01:34:00 PM EST [facility] ([facility] Name Value Range Interpretation Code Description Data Joyce rce(s) Supporting Document(s) Glu 107 mg/dL 70-110 [facility] ([facility] CHRONIC KIDNEY DISEASE STAGING PER [...] mL/min Normal BUN 12 mg/dL 8-23 [facility] ([facility] CHRONIC KIDNEY DISEASE STAGING PER [...] mL/min Normal Creat 0.8 mg/dL 0.5-1.0 [facility] ([facility] CHRONIC KIDNEY DISEASE STAGING PER [...] mL/min Normal BUN/Creatinine Ratio 15.6 Calc [facility] ([facility] CHRONIC KIDNEY DISEASE [...] mL/min Normal Co2 26.1 mmol/L 22.0-29.0 [facility] ([facility] CHRONIC KIDNEY DISEASE STAGING [...] mL/min Normal Na 137 mmol/L 136-145 [facility] ([facility] CHRONIC KIDNEY DISEASE [...] mL/min Normal K 4.0 mmol/L 3.5-5.1 [facility] ([facility] CHRONIC KIDNEY DISEASE [...] mL/min Normal CA 9.0 mg/dL 8.6-10.2 [facility] ([facility] CHRONIC KIDNEY DISEASE [...] mL/min Normal Anion Gap 14 mmol/L [facility] ([facility] CHRONIC KIDNEY DISEASE STAGING PER [...] mL/min Normal CL 100.2 mmol/L 98.0-107.0 [facility] ([facility] CHRONIC KIDNEY DISEASE STAGING PER [...] and above >32 mL/min Normal eGFR Non-Afr. Micronesian 86 # [facility] ([facility] CHRONIC KIDNEY DISEASE STAGING [...] mL/min Normal eGFR 100 # [facility] ( [facility] CHRONIC KIDNEY DISEASE STAGING [...] >32 mL/min Normal ID Date Data Source [id number] 08/02/2019 11:55:00 AM EST [facility] ([facility] Name Value Range Interpretation Code Description Data Joyce rce(s) Supporting Document(s) Prothrombin Time 25.4 s 11.8-14.0 Above high normal M [facility] ([facility] Inr 2.33 Normal (applies to non-numeric resul ts) [facility] ([facility] THERAPUTIC HUMAN INR VALUES INDICATIONS NORMAL RANGES PROPHYLAXIS/TREATMENT OF: VENOUS THROMBOSIS 2.0-3.0 PULMONARY EMBOLISM 2.0-3.0 PREVENTION OF SYSTEMIC EMBOLISM FROM: TISSUE HEART VALVES 2.0-3.0 ACUTE MYOCARDIAL INFARCTION 2.0-3.0 VALVULAR HEART DISEASE 2.0-3.0 ATRIAL FIBRILLATION 2.0-3.0 MECHANICAL VALVES(HIGH RISK) 2.5-3.5 RECURRENT MYOCARDIAL INFARCTION 2.5-3.5 ID Date Data Source [id number] 07/30/2019 12:55:00 PM EST [facility] ([facility] Name Value Range Interpretation Code Description Data Joyce rce(s) Supporting Document(s) Inr 2.29 Normal (applies to non-numeric resul ts) [facility] ([facility] THERAPUTIC HUMAN INR VALUES INDICATIONS NORMAL RANGES PROPHYLAXIS/TREATMENT OF: VENOUS THROMBOSIS 2.0-3.0 PULMONARY EMBOLISM 2.0-3.0 PREVENTION OF SYSTEMIC EMBOLISM FROM: TISSUE HEART VALVES 2.0-3.0 ACUTE MYOCARDIAL INFARCTION 2.0-3.0 VALVULAR HEART DISEASE 2.0-3.0 ATRIAL FIBRILLATION 2.0-3.0 MECHANICAL VALVES(HIGH RISK) 2.5-3.5 RECURRENT MYOCARDIAL INFARCTION 2.5-3.5 Prothrombin Time 25.0 s 11.8-14.0 Above high normal M [facility] ([facility] ID Date Data Source [id number] 07/27/2019 09:26:00 AM EST [facility] ([facility] [employer] [facility] Name Value Range Interpretation Code Description Data Joyce rce(s) Supporting Document(s) Inr 2.69 Normal (applies to non-numeric resul ts) [facility] ([facility] THERAPUTIC HUMAN INR VALUES INDICATIONS NORMAL RANGES PROPHYLAXIS/TREATMENT OF: VENOUS THROMBOSIS 2.0-3.0 PULMONARY EMBOLISM 2.0-3.0 PREVENTION OF SYSTEMIC EMBOLISM FROM: TISSUE HEART VALVES 2.0-3.0 ACUTE MYOCARDIAL INFARCTION 2.0-3.0 VALVULAR HEART DISEASE 2.0-3.0 ATRIAL FIBRILLATION 2.0-3.0 MECHANICAL VALVES(HIGH RISK) 2.5-3.5 RECURRENT MYOCARDIAL INFARCTION 2.5-3.5 Prothrombin Time 28.5 s 11.8-14.0 Above high normal M [facility] ([facility] ID Date Data Source [id number] 07/23/2019 10:03:00 AM EST [facility] ([facility] [employer] [facility] Name Value Range Interpretation Code Description Data Joyce rce(s) Supporting Document(s) Prothrombin Time 25.7 s 11.8-14.0 Above high normal M [facility] ([facility] Inr 2.37 Normal (applies to non-numeric resul ts) [facility] ([facility] THERAPUTIC HUMAN INR VALUES INDICATIONS NORMAL RANGES PROPHYLAXIS/TREATMENT OF: VENOUS THROMBOSIS 2.0-3.0 PULMONARY EMBOLISM 2.0-3.0 PREVENTION OF SYSTEMIC EMBOLISM FROM: TISSUE HEART VALVES 2.0-3.0 ACUTE MYOCARDIAL INFARCTION 2.0-3.0 VALVULAR HEART DISEASE 2.0-3.0 ATRIAL FIBRILLATION 2.0-3.0 MECHANICAL VALVES(HIGH RISK) 2.5-3.5 RECURRENT MYOCARDIAL INFARCTION 2.5-3.5 ID Date Data Source [id number] 07/19/2019 04:00:00 PM EST [facility] ([facility] Name Value Range Interpretation Code Description Data Joyce rce(s) Supporting Document(s) Bacteria identified in Unspecified specimen by Aerobe culture Laboratory test result [facility] ([facility] Preliminary report Bacteria identified in Unspecified specimen by Culture Laborator y test result [facility] ([facility] ) No growth in 36 - 48 hours. ID Date Data Source [id number] 07/19/2019 09:18:00 AM EST [facility] ([facility] Name Value Range Interpretation Code Description Data Joyce rce(s) Supporting Document(s) Prothrombin Time 23.0 s 11.8-14.0 Above high normal M [facility] ([facility] Inr 2.06 Normal (applies to non-numeric resul ts) [facility] ([facility] THERAPUTIC HUMAN INR VALUES INDICATIONS NORMAL RANGES PROPHYLAXIS/TREATMENT OF: VENOUS THROMBOSIS 2.0-3.0 PULMONARY EMBOLISM 2.0-3.0 PREVENTION OF SYSTEMIC EMBOLISM FROM: TISSUE HEART VALVES 2.0-3.0 ACUTE MYOCARDIAL INFARCTION 2.0-3.0 VALVULAR HEART DISEASE 2.0-3.0 ATRIAL FIBRILLATION 2.0-3.0 MECHANICAL VALVES(HIGH RISK) 2.5-3.5 RECURRENT MYOCARDIAL INFARCTION 2.5-3.5 ID Date Data Source [id number] 07/16/2019 05:15:00 PM EST [facility] [address] [place] [id number] FOLLOW UP NOTENAME: BROOKS HENDRIX MPHYSICIAN: MANISHA RIGGINS, MDDATE OF SERVICE: 07/16/19DATE OF : 70ACCOUNT #: [id number]: BROOKS HEDNRIXDate: Jul 16, 2019DOB: 1970Physician: Dr. Frank Ocampo M.D., M.P.H.Julia Huddleston.Amy.Age: 49Note Title: Hematology Follow UpDiagnosis:Primary - I26.99 - Other pulmonary embolism without acute cor pulmonale,Diagnosed 2018 (Active)Primary - Z79.01 - halfway (current) use of anticoagulants, Leah [id number] (Active)Primary - M32.9 - Systemic lupus erythematosus, [...] after a footsurgery in November 2017. 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 Aparicio with antiphospholipidsyndrome antibody testing at [facility] and at [facility] and both are reported as positive. [...] [facility] She also has problems with neuropathy which is beingfollowed by Dr. Bronson neurologist at [facility].She denies any history of skin rash or [...] 2000Tonsillectomy in 1996Laproscopy - 1994LEEP - 2013 b7Ofioirbx ablastion and esure(slow arousing after anesthesia)Allergies:Doxycycline Hyclate, Emycin, Imipramine HCl, Methotrexate Sodium, Topamax, andUltram.Current Medications:Amoxicillin 1 Tablet (of 500 mg) Oral t.i.d. (Jul 16, 2019)Enoxaparin Sodium 150 mg (of 150 mg/mL) Subcutaneous daily (Feb 16, 2019)Nystatin 5 G (of 795565 Units/g) Cream Topical b.i.d. 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 [facility].Review of Systems:ConstitutionalNo fevers, chills, night [...] thesame timeVital Signs:Performed on Jul 16, 2019 15:30Wfxxnb04.00 ocErzyhf152.2 lbs(HIGH)BSA (derived)2.46 sq.mBMI46.86 (HIGH)Vwdkimwaprd02.2 KHeqqc212 /min(HIGH)Qufjyesnxsu38 /iyeJB534/78Pulse Oximetry (O2 Sat)98 %Pain Egzkxddsfs0Yzfl RiskLow fall riskPerformance Status:1 - No physically [...] [facility]1.Non-reliability of INR self testing in antiphospholipid antibody syndromepatients-Pt has been having her INR tested the lab at [facility].2. Fluctuation of INR-Patient is using vitamin K [...] rce(s) Supporting Document(s) ID Date Data Source [id number] 07/16/2019 03:00:00 PM EST [facility] What anti-coagulants is pt. on ?? [facility] IN Name Value Range Interpretation Code Description Data Joyce rce(s) Supporting Document(s) INR 2.11 0.91-1.09 H [facility] INR THERAPEUTIC RANGES Prophylaxis of ve nous thrombosis ] (high risk surgery) ]Treatment of venous thrombosis ]Treatment of pulmonary embolism ]Prevention of systemic embolism ] 2.0-3.0Tissue heart valves ]Acute myocardial infarction ]Valvular disease ]Atrial fibrillation ]Recurrent systemic embolism ] Mechanical prosthetic heart valves -------- 2.5-3.5 ID Date Data Source [id number] 07/09/2019 11:25:00 AM EST [facility] ([facility] Name Value Range Interpretation Code Description Data Joyce rce(s) Supporting Document(s) Inr 1.98 Normal (applies to non-numeric resul ts) [facility] ([facility] THERAPUTIC HUMAN INR VALUES INDICATIONS NORMAL RANGES PROPHYLAXIS/TREATMENT OF: VENOUS THROMBOSIS 2.0-3.0 PULMONARY EMBOLISM 2.0-3.0 PREVENTION OF SYSTEMIC EMBOLISM FROM: TISSUE HEART VALVES 2.0-3.0 ACUTE MYOCARDIAL INFARCTION 2.0-3.0 VALVULAR HEART DISEASE 2.0-3.0 ATRIAL FIBRILLATION 2.0-3.0 MECHANICAL VALVES(HIGH RISK) 2.5-3.5 RECURRENT MYOCARDIAL INFARCTION 2.5-3.5 Prothrombin Time 22.3 s 11.8-14.0 Above high normal M EDENT ([facility] ID Date Data Source [id number] 07/02/2019 04:17:00 PM EST [facility] What anti-coagulants is pt. on ?? COUMAD IN Name Value Range Interpretation Code Description Data Joyce rce(s) Supporting Document(s) INR 1.84 0.91-1.09 H [facility] INR THERAPEUTIC RANGES Prophylaxis of ve nous thrombosis ] (high risk surgery) ]Treatment of venous thrombosis ]Treatment of pulmonary embolism ]Prevention of systemic embolism ] 2.0-3.0Tissue heart valves ]Acute myocardial infarction ]Valvular disease ]Atrial fibrillation ]Recurrent systemic embolism ] Mechanical prosthetic heart valves -------- 2.5-3.5 ID Date Data Source [id number] 06/27/2019 04:34:00 PM EST MEDENT ([facility] Name Value Range Interpretation Code Description Data Joyce rce(s) Supporting Document(s) CK-MB Value Mass Laboratory test result Normal ( applies to non-numeric results) MEDVANESSA ([facility] ) CPK Creatine Phosphokinase 68 U/L 26-192 Piedad l (applies to non-numeric results) MEDVANESSA ([facility] ) Troponin I Laboratory test result Normal (applies to non-n umeric results) [facility] ([facility] <content>Troponin I Reference Interval f or Siemens [place] LOCI:</content>
<content></content>
<content>99th Percentile= 0.00-0.045 ng/ml</content>
<content></content>
<content>Risk Stratification:</content>
<content><= 0.10 ng/ml Decreased Risk for Adverse Clinical</content>
<content>Events.</content>
<content>0.10-1.50 ng/ml Increased Risk for Adverse Clinical</content>
<content>Events. Evaluation of additional</content>
<content>criterion and/or repeat testing in 2-6</content>
<content>hours is suggested to rule out myocardial</content>
<content>damage.</content>
<content>>= 1.50 ng/ml Indicative of Myocardial Injury.</content>
<content></content> MB/CK Relative Index 1.47 Normal (applies to non-num trish results) [facility] ([facility] <content>DIAGNOSIS CRITERIA</content>
<content>MMB ng/ml Relative Index (RI)</content>
<content>NON-AMI < or = 5 N/A</content>
<content>HARDY ZONE > 5 < or = 4</content>
<content>AMI > 5 > 4</content>
<content></content> ID Date Data Source [id number] 06/27/2019 10:51:00 AM EST MEDENT ([facility] Name Value Range Interpretation Code Description Data Joyce rce(s) Supporting Document(s) Lipoprotein lipase [Enzymatic activity/volume] in Serum or P lasma 120 U/L 73-393 Normal (applies to non-numeric results) [facility] ([facility] ID Date Data Source [id number] 06/27/2019 10:51:00 AM EST MEDENT ([facility] Name Value Range Interpretation Code Description Data Joyce rce(s) Supporting Document(s) Ast/Sgot 18 U/L 7-37 Normal (applies to non-numeric resul ts) MEDENT ([facility] Alt/SGPT 26 U/L 12-78 Normal (applies to non-numeric resul ts) MEDENT ([facility] Alkaline Phosphatase 63 U/L 45-117 Normal (applies to non-num trish results) MEDENT ([facility] Bilirubin,Total 0.3 mg/dL 0.2-1.0 Normal (applies to non-numeric results) MEDENT ([facility] Total Protein 7.4 GM/DL 6.4-8.2 Normal (applies to non-numeric re sults) MEDENT ([facility] Bilirubin,Direct Laboratory test result 0.0-0.2 Normal ( applies to non-numeric results) MEDENT ([facility] ) Albumin 3.5 GM/DL 3.2-5.2 Normal (applies to non-numeric resul ts) MEDENT ([facility] Albumin/Globulin Ratio 0.90 1.00-1.93 Below low normal [facility] ID Date Data Source [id number] 06/27/2019 10:51:00 AM EST DILMA ([facility] Name Value Range Interpretation Code Description Data Joyce rce(s) Supporting Document(s) Glucose, Fasting 93 mg/dL 70-100 Normal (applies to non-numeric results) MEDENT ([facility] Blood Urea Nitrogen 12 mg/dL 7-18 Normal (applies to non-nume elías results) [facility] ([facility] Creatinine For GFR 0.93 mg/dL 0.55-1.30 Normal (applies to non -numeric results) MEDVANESSA ([facility] Glomerular Filtration Rate Laboratory test result Normal (applies to non- numeric results) [facility] ([facility] ) <content>Units are mL/min/1.73 m2</content>
<content></content>
<content>Chronic Kidney Disease Staging per NKF:</content>
<content></content>
<content>Stage I & II GFR >=60 Normal to Mildly Decreased</content>
<content>Stage III GFR 30-59 Moderately Decreased</content>
<content>Stage IV GFR 15-29 Severely Decreased</content>
<content>Stage V GFR <15 Very Little GFR Left</content>
<content>ESRD GFR <15 on VP PURCHASING</content>
<content></content> Potassium Serum 3.5 meq/L 3.5-5.1 Normal (applies to non-numeric results) MEDENT ([facility] Sodium Level 140 meq/L 136-145 Normal (applies to non-numeric res ults) MEDENT ([facility] Carbon Dioxide Level 31 meq/L 21-32 Normal (applies to non-num trish results) MEDENT ([facility] Anion Gap 5 meq/L 8-16 Below low normal MEDENT ( [facility] Chloride Level 104 meq/L 98-107 Normal (applies to non-numeric r esults) [facility] ([facility] Calcium Level 8.7 mg/dL 8.5-10.1 Normal (applies to non-numeric re sults) [facility] ([facility] ID Date Data Source [id number] 06/27/2019 10:51:00 AM EST [facility] ([facility] Name Value Range Interpretation Code Description Data Joyce rce(s) Supporting Document(s) Prothrombin Time 23.3 s 11.8-14.0 Above high normal M EDENT ([facility] Inr 2.09 Normal (applies to non-numeric resul ts) [facility] ([facility] THERAPUTIC HUMAN INR VALUES INDICATIONS NORMAL RANGES PROPHYLAXIS/TREATMENT OF: VENOUS THROMBOSIS 2.0-3.0 PULMONARY EMBOLISM 2.0-3.0 PREVENTION OF SYSTEMIC EMBOLISM FROM: TISSUE HEART VALVES 2.0-3.0 ACUTE MYOCARDIAL INFARCTION 2.0-3.0 VALVULAR HEART DISEASE 2.0-3.0 ATRIAL FIBRILLATION 2.0-3.0 MECHANICAL VALVES(HIGH RISK) 2.5-3.5 RECURRENT MYOCARDIAL INFARCTION 2.5-3.5 Partial Thromboplastin Time 34.2 s 25.0-38.4 Norm al (applies to non-numeric results) [facility] ([facility] ) ID Date Data Source [id number] 06/27/2019 10:51:00 AM EST [facility] ([facility] Name Value Range Interpretation Code Description Data Joyce rce(s) Supporting Document(s) CK-MB Value Mass Laboratory test result Normal ( applies to non-numeric results) MEDENT ([facility] ) CPK Creatine Phosphokinase 75 U/L 26-192 Piedad l (applies to non-numeric results) [facility] ([facility] ) MB/CK Relative Index 1.33 Normal (applies to non-num trish results) [facility] ([facility] <content>DIAGNOSIS CRITERIA</content>
<content>MMB ng/ml Relative Index (RI)</content>
<content>NON-AMI < or = 5 N/A</content>
<content>HARDY ZONE > 5 < or = 4</content>
<content>AMI > 5 > 4</content>
<content></content> Troponin I Laboratory test result Normal (applies to non-n umeric results) [facility] ([facility] <content>Troponin I Reference Interval f or Siemens [place] LOCI:</content>
<content></content>
<content>99th Percentile= 0.00-0.045 ng/ml</content>
<content></content>
<content>Risk Stratification:</content>
<content><= 0.10 ng/ml Decreased Risk for Adverse Clinical</content>
<content>Events.</content>
<content>0.10-1.50 ng/ml Increased Risk for Adverse Clinical</content>
<content>Events. Evaluation of additional</content>
<content>criterion and/or repeat testing in 2-6</content>
<content>hours is suggested to rule out myocardial</content>
<content>damage.</content>
<content>>= 1.50 ng/ml Indicative of Myocardial Injury.</content>
<content></content> ID Date Data Source [id number] 06/27/2019 10:51:00 AM EST MEDVANESSA ([facility] Name Value Range Interpretation Code Description Data Joyce rce(s) Supporting Document(s) White Blood Count 3.4 10 4.0-10.0 Below low normal M EDENT ([facility] Red Blood Count 4.75 10 4.00-5.40 Normal (applies to non-numeric results) MEDENT ([facility] Hemoglobin 12.3 g/dL 12.0-15.5 Normal (applies to non-numeric resul ts) MEDENT ([facility] Hematocrit 39.0 % 36.0-47.0 Normal (applies to non-numeric resul ts) MEDENT ([facility] Mean Corpuscular Volume 82.1 fl 80.0-96.0 Normal ( applies to non-numeric results) MEDENT ([facility] ) Mean Corpuscular Hemoglobin 25.9 pg 27.0-33.0 Below low normal MEDENT ([facility] Red Cell Distribution Width 13.2 % 11.5-14.5 Norm al (applies to non-numeric results) MEDENT ([facility] ) Platelet Count, Automated 159 10 150-450 Normal (applies to non-numeric results) MEDENT ([facility] ) Mean Corpuscular HGB Conc 31.5 g/dL 32.0-36.5 Below low normal MEDENT ([facility] Neutrophils % 66.5 % 36.0-66.0 Above high normal MEDE NT ([facility] Lymph % 20.3 % 24.0-44.0 Below low normal MEDENT ( [facility] [place] % 8.1 % 0.0-5.0 Above high normal MEDENT ([facility] Eos % 4.2 % 0.0-3.0 Above high normal MEDENT ([facility] Baso % 0.3 % 0.0-1.0 Normal (applies to non-numeric resul ts) MEDENT ([facility] Immature Granulocyte % 0.6 % 0-3.0 Normal (applies to non-n umeric results) MEDENT ([facility] Neutrophils # 2.2 10 1.5-8.5 Normal (applies to non-numeric re sults) MEDENT ([facility] Nucleated Red Blood Cell % 0.0 % 0-0 Normal (applies to n on-numeric results) MEDENT ([facility] Lymph # 0.7 10 1.5-5.0 Below low normal MEDENT ( [facility] [place] # 0.3 10 0.0-0.8 Normal (applies to non-numeric resul ts) MEDENT ([facility] Eos # 0.1 10 0.0-0.5 Normal (applies to non-numeric resul ts) MEDENT ([facility] Baso # 0.0 10 0.0-0.2 Normal (applies to non-numeric resul ts) MEDENT ([facility] ID Date Data Source [id number] 06/25/2019 11:55:00 AM EST MEDENT ([facility] Name Value Range Interpretation Code Description Data Joyce rce(s) Supporting Document(s) Prothrombin Time 22.5 s 11.8-14.0 Above high normal M EDENT ([facility] Inr 2.00 Normal (applies to non-numeric resul ts) MEDENT ([facility] THERAPUTIC HUMAN INR VALUES INDICATIONS [...] (finding) completed Current non-drinker of alcohol (finding) [facility] Tobacco use and exposure 05/19/2020 12:00:00 AM EDT Never used co mpleted Never used [facility] Smoking 05/19/2020 12:00:00 AM EDT Never smoker completed Never s [facility] Alcohol intake 04/19/2020 12:00:00 AM EDT Current non-d buster of alcohol (finding) completed Current non-drinker of alcohol (finding) [facility] Alcohol intake 08/17/2019 12:00:00 AM EST Current non-d buster of alcohol (finding) completed Current non-drinker of alcohol (finding) [facility] Smoking 08/17/2019 12:00:00 AM EST Never smoker completed Never s [facility] Vital Signs ID Date Data Source [id number] Name Value Range Interpretation Code Description Data Source(s) Body mass index (BMI) [Ratio] 50.9 kg/m2 50.9 k g/m2 MEDENT ([facility] Body weight 335.00 [lb_av] 335.00 [lb_av] MEDEN T ([facility] ) Body height 68 [in_i] 68 [in_i] MEDENT ([facility] ) 5'8" Body temperature 96.9 [degF] 96.9 [degF] MEDENT ([facility] ) Body temperature 96.8 [degF] 96.8 [degF] MEDENT ([facility] ) Respiratory rate 16 /min 16 [...] Body temperature 96.8 [degF] 96.8 [degF] MEDENT ([facility] ) Body weight 5362 [oz_av] 5362 [oz_av] THAD ([facility]) Systolic blood pressure 123 mm[Hg] 123 mm[Hg] A THENA ([facility]) Body mass index (BMI) [Ratio] 51 kg/m2 51 kg/ m2 THAD ([facility]) Body height 68 [in_i] 68 [in_i] THAD ([facility]) Body weight 5362 [oz_av] 5362 [oz_av] THAD ([facility]) Systolic blood pressure 123 mm[Hg] 123 mm[Hg] A [facility] ([facility]) Body mass index (BMI) [Ratio] 51 kg/m2 51 kg/ m2 THAD ([facility]) Body height 68 [in_i] 68 [in_i] THAD ([facility]) Diastolic blood pressure 90 mm[Hg] 90 mm[Hg] THAD ([facility]) Body weight 5362 [oz_av] 5362 [oz_av] THAD ([facility]) Systolic blood pressure 123 mm[Hg] 123 mm[Hg] A [facility] ([facility]) Body mass index (BMI) [Ratio] 51 kg/m2 51 kg/ m2 THAD ([facility]) Body height 68 [in_i] 68 [in_i] THAD ([facility]) Diastolic blood pressure 90 mm[Hg] 90 mm[Hg] THAD ([facility]) Body weight 5362 [oz_av] 5362 [oz_av] THAD ([facility]) Systolic blood pressure 123 mm[Hg] 123 mm[Hg] A [facility] ([facility]) Body mass index (BMI) [Ratio] 51 kg/m2 51 kg/ m2 THAD ([facility]) Body height 68 [in_i] 68 [in_i] THAD ([facility]) Diastolic blood pressure 90 mm[Hg] 90 mm[Hg] THAD ([facility]) Systolic blood pressure 123 mm[Hg] 123 mm[Hg] A [facility] ([facility]) Body mass index (BMI) [Ratio] 51 kg/m2 51 kg/ m2 THAD ([facility]) Body height 68 [in_i] 68 [in_i] THAD ([facility]) Diastolic blood pressure 90 mm[Hg] 90 mm[Hg] THAD ([facility]) Diastolic blood pressure 90 mm[Hg] 90 mm[Hg] THAD ([facility]) Body weight 5362 [oz_av] 5362 [oz_av] THAD ([facility]) Body weight 5392 [oz_av] 5392 [oz_av] THAD ([facility]) Systolic blood pressure 122 mm[Hg] 122 mm[Hg] A THEN ([facility]) Body mass index (BMI) [Ratio] 51.2 kg/m2 51.2 k g/m2 THAD ([facility]) Body height 68 [in_i] 68 [in_i] THAD ([facility]) Diastolic blood pressure 83 mm[Hg] 83 mm[Hg] THAD ([facility]) Body weight 5392 [oz_av] 5392 [oz_av] THAD ([facility]) Systolic blood pressure 122 mm[Hg] 122 mm[Hg] A THEN ([facility]) Body mass index (BMI) [Ratio] 51.2 kg/m2 51.2 k g/m2 THAD ([facility]) Body height 68 [in_i] 68 [in_i] THAD ([facility]) Diastolic blood pressure 83 mm[Hg] 83 mm[Hg] THAD ([facility]) Body weight 5392 [oz_av] 5392 [oz_av] THAD ([facility]) Systolic blood pressure 122 mm[Hg] 122 mm[Hg] A THEN ([facility]) Body mass index (BMI) [Ratio] 51.2 kg/m2 51.2 k g/m2 THAD ([facility]) Body height 68 [in_i] 68 [in_i] THAD ([facility]) Diastolic blood pressure 83 mm[Hg] 83 mm[Hg] THAD ([facility]) Body weight 5392 [oz_av] 5392 [oz_av] THAD ([facility]) Systolic blood pressure 122 mm[Hg] 122 mm[Hg] A THEN ([facility]) Body mass index (BMI) [Ratio] 51.2 kg/m2 51.2 k g/m2 THAD ([facility]) Body height 68 [in_i] 68 [in_i] THAD ([facility]) Diastolic blood pressure 83 mm[Hg] 83 mm[Hg] THAD ([facility]) Body weight 5392 [oz_av] 5392 [oz_av] THAD ([facility]) Systolic blood pressure 122 mm[Hg] 122 mm[Hg] A THEN ([facility]) Body mass index (BMI) [Ratio] 51.2 kg/m2 51.2 k g/m2 THAD ([facility]) Body height 68 [in_i] 68 [in_i] THAD ([facility]) Diastolic blood pressure 83 mm[Hg] 83 mm[Hg] THAD ([facility]) Body weight 5392 [oz_av] 5392 [oz_av] THAD ([facility]) Systolic blood pressure 122 mm[Hg] 122 mm[Hg] A THEN ([facility]) Body mass index (BMI) [Ratio] 51.2 kg/m2 51.2 k g/m2 THAD ([facility]) Body height 68 [in_i] 68 [in_i] THAD ([facility]) Diastolic blood pressure 83 mm[Hg] 83 mm[Hg] THAD ([facility]) Body weight 5392 [oz_av] 5392 [oz_av] THAD ([facility]) Systolic blood pressure 122 mm[Hg] 122 mm[Hg] A THEN ([facility]) Body mass index (BMI) [Ratio] 51.2 kg/m2 51.2 k g/m2 THAD ([facility]) Body height 68 [in_i] 68 [in_i] THAD ([facility]) Diastolic blood pressure 83 mm[Hg] 83 mm[Hg] THAD ([facility]) Body weight 5392 [oz_av] 5392 [oz_av] THAD ([facility]) Systolic blood pressure 122 mm[Hg] 122 mm[Hg] A THEN ([facility]) Body mass index (BMI) [Ratio] 51.2 kg/m2 51.2 k g/m2 THAD ([facility]) Body height 68 [in_i] 68 [in_i] THAD ([facility]) Diastolic blood pressure 83 mm[Hg] 83 mm[Hg] THAD ([facility]) Body weight 5392 [oz_av] 5392 [oz_av] THAD ([facility]) Systolic blood pressure 122 mm[Hg] 122 mm[Hg] A BEVERLY ([facility]) Body mass index (BMI) [Ratio] 51.2 kg/m2 51.2 k g/m2 THAD ([facility]) Body height 68 [in_i] 68 [in_i] THAD ([facility]) Diastolic blood pressure 83 mm[Hg] 83 mm[Hg] THAD ([facility]) Body weight 5392 [oz_av] 5392 [oz_av] THAD ([facility]) Systolic blood pressure 122 mm[Hg] 122 mm[Hg] A BEVERLY ([facility]) Body mass index (BMI) [Ratio] 51.2 kg/m2 51.2 k g/m2 THAD ([facility]) Body height 68 [in_i] 68 [in_i] THAD ([facility]) Diastolic blood pressure 83 mm[Hg] 83 mm[Hg] THAD ([facility]) Oxygen saturation in Arterial blood by Pulse oximetry 91 % 91 % MEDENT ([facility] Body height 68 [in_i] 68 [in_i] MEDENT ([facility] 5'8" Respiratory [...] Body height 68 [in_i] 68 [in_i] MEDENT ([facility] 5'8" Respiratory rate 20 /min 20 /min MEDENT ( [facility] Heart rate 84 /min 84 /min MEDENT ([facility] Body temperature 97.6 [degF] 97.6 [degF] MEDENT ([facility] Diastolic blood pressure 86 mm[Hg] 86 mm[Hg] MEDENT ([facility] Systolic blood pressure 148 mm[Hg] 148 mm[Hg] M EDENT ([facility] Body mass index (BMI) [Ratio] 50.0 kg/m2 50.0 k g/m2 MEDENT ([facility]) Body weight 329.00 [lb_av] 329.00 [lb_av] MEDEN T ([facility]) Body height 68 [in_i] 68 [in_i] MEDENT ([facility]) 5'8" Body temperature 95.3 [degF] 95.3 [degF] MEDENT ([facility]) Body surface area Derived from formula 2.53 m2 2.53 m2 [facility]) Body weight 149.234 kg 149.234 kg [facility] ([facility]) [place] body weight 140 [lb_av] 140 [lb_av] MEDEN T ([facility]) Body mass index (BMI) [Ratio] 50.0 kg/m2 50.0 k g/m2 MEDENT ([facility]) Body weight 329.00 [lb_av] 329.00 [lb_av] MEDEN T ([facility]) Body height 68 [in_i] 68 [in_i] MEDENT ([facility]) 5'8" Diastolic blood pressure 84 mm[Hg] 84 mm[Hg] MEDENT ([facility]) Systolic blood pressure 118 mm[Hg] 118 mm[Hg] M EDENT ([facility]) Body mass index (BMI) [Ratio] 50.2 kg/m2 [...] Body height 68 [in_i] 68 [in_i] MEDENT ([facility] 5'8" Respiratory rate 16 [...] Pulse oximetry 97 % 97 % MEDENT ([facility] Body mass index (BMI) [Ratio] 48.3 kg/m2 48.3 k g/m2 MEDENT ([facility] Body weight 318.00 [lb_av] 318.00 [lb_av] MEDEN T ([facility] Body height 68 [in_i] 68 [in_i] MEDENT ([facility] 5'8" Respiratory rate 16 /min 16 /min MEDENT ( [facility] Heart rate 80 /min 80 /min MEDENT ([facility] Body temperature 98.4 [degF] 98.4 [degF] MEDENT ([facility] Diastolic blood pressure 80 mm[Hg] 80 mm[Hg] MEDENT ([facility] Systolic blood pressure 104 mm[Hg] 104 mm[Hg] M EDENT ([facility] Body mass index (BMI) [Ratio] 48.7 kg/m2 48.7 k g/m2 MEDENT ([facility] ) Body weight 320.00 [lb_av] 320.00 [lb_av] MEDEN T ([facility] ) Body height 68 [in_i] 68 [in_i] MEDENT ([facility] 5'8" Body temperature 96.5 [degF] 96.5 [degF] MEDENT ([facility] ) Body surface area Derived from formula 2.51 m2 2.51 m2 MEDENT ([facility] ) Body weight 147.420 kg 147.420 kg MEDENT ([facility] ) [place] body weight 140 [lb_av] 140 [lb_av] MEDEN T ([facility]) Body mass index (BMI) [Ratio] 49.4 kg/m2 49.4 k g/m2 MEDENT ([facility]) Body weight 325.00 [lb_av] 325.00 [lb_av] MEDEN T ([facility]) Body height 68 [in_i] 68 [in_i] MEDENT ([facility]) 5'8" Diastolic blood pressure 82 mm[Hg] 82 mm[Hg] MEDENT ([facility]) Systolic blood pressure 112 mm[Hg] 112 mm[Hg] M EDENT ([facility]) Oxygen saturation in Arterial blood by Pulse oximetry 97 % 97 % MEDENT ([facility] Body mass index (BMI) [Ratio] 47.9 kg/m2 47.9 k g/m2 MEDENT ([facility] Body weight 315.00 [lb_av] 315.00 [lb_av] MEDEN T ([facility] Body height 68 [in_i] 68 [in_i] MEDENT ([facility] 5'8" Respiratory rate 16 [...] Body height 68 [in_i] 68 [in_i] MEDENT ([facility] 5'8" Respiratory rate 16 [...] Body height 68 [in_i] 68 [in_i] MEDENT ([facility] 5'8" Respiratory rate 18 [...] Body height 68 [in_i] 68 [in_i] MEDENT ([facility] 5'8" Respiratory rate 16 /min 16 /min MEDENT ( [facility] Heart rate 76 /min 76 /min MEDENT ([facility] Body temperature 98.2 [degF] 98.2 [degF] MEDENT ([facility] Diastolic blood pressure 74 mm[Hg] 74 mm[Hg] MEDENT ([facility] Systolic blood pressure 118 mm[Hg] 118 mm[Hg] M EDENT ([facility] Diastolic blood pressure 77 mm[Hg] 77 mm[Hg] eCW1 [facility] Systolic blood pressure 125 mm[Hg] 125 mm[Hg] e CW1 ([facility]) Body temperature 97.0 [degF] 97.0 [degF] eCW1 ( [facility]) Respiratory rate 18 /min 18 /min eCW1 ([facility]) Heart rate 94 /min 94 /min eCW1 [facility] Body mass index (BMI) [Ratio] 47.68 kg/m2 47.68 kg/m2 eCW1 ([facility]) Body height 67.5 [in_us] 67.5 [in_us] eCW1 ([facility]) Body weight Measured 309 [lb_av] 309 [lb_av] eC W1 ([facility]) [place] body weight 140 [lb_av] 140 [lb_av] MEDEN T ([facility] ) Body mass index (BMI) [Ratio] 47.0 kg/m2 47.0 k g/m2 MEDENT ([facility] ) Body weight 309.00 [lb_av] 309.00 [lb_av] MEDEN T ([facility] ) Body height 68 [in_i] 68 [in_i] [facility] 5'8" ID Date Data Source [id number] 05/19/2020 04:53:56 PM [facility] Name Value Range Interpretation Code Description Data Source(s) WEIGHT RECORDED 339 lb 339 lb [facility] Body height Measured 67 in 67 in [facility] Patient Treatment Plan of Care Planned Activity Planned Date Details Description Data Source (s) Tropicamide 10 MG/ML Ophthalmic Solution 04/17/2020 01:30:00 PM [facility] Phenylephrine Hydrochloride 25 MG/ML Ophthalmic Soluti on 04/17/2020 01:30:00 PM [facility] Proparacaine hydrochloride 5 MG/ML Ophthalmic Solution 04/17/2020 01:30:00 PM [facility] Albuterol Sulfate HFA 108 (90 Base) MCG/ ACT Inhalation Aerosol Solution (PROVENTIL HFA) 01/14/2020 12:00:00 AM [facility] fluorescein 10 % injection 500 mg 08/17/2019 04:00:00 PM [facility] fluorescein-benoxinate (FLURATE) 0.25-0.4 % ophthalmic solution 1 drop 08/17/2019 03:45:00 PM [facility] Phenylephrine Hydrochloride 25 MG/ML Ophthalmic Soluti on 08/17/2019 03:45:00 PM [facility] Tropicamide 10 MG/ML Ophthalmic Solution 08/17/2019 03:45:00 PM [facility] Nystatin 836485 UNT/ML Topical Cream 07/16/2019 12:00:00 AM [facility] Suprep Bowel Prep Kit 17.5 gram-3.13 gram-1.6 gram oral solution THAD ([facility]) Prednisone 2.5 MG Oral Tablet [place] ([facility]) Prednisone 10 MG Oral Tablet [place] ([facility]) pantoprazole 40 MG Delayed Release Oral Tablet [place] ([facility]) Nystatin 363729 UNT/ML Topical Cream [place] ([facility]) Hydrochlorothiazide 12.5 MG / Lisinopril 10 MG Oral Tablet THAD ([facility]) duloxetine 30 MG Delayed Release Oral Capsule THAD ([facility]) Citalopram 20 MG Oral Tablet THAD ([facility]) Cephalexin 500 MG Oral Capsule THAD ([facility]) mycophenolate mofetil 500 MG Oral Tablet [Cellcept] THAD ([facility]) Benlysta 200 mg/mL subcutaneous auto-injector THAD ([facility]) Baclofen 5 MG Oral Tablet AT SUJIT ([facility]) Baclofen 10 MG Oral Tablet A THENA ([facility]) [facility] Alprazolam 0.5 MG Oral Tablet THAD ([facility]) zonisamide 50 MG Oral Capsule THAD ([facility]) zonisamide 25 MG Oral Capsule THAD ([facility]) Suprep Bowel Prep Kit 17.5 gram-3.13 gram-1.6 gram oral solution THAD ([facility]) Prednisone 2.5 MG Oral Tablet THAD ([facility]) Prednisone 10 MG Oral Tablet THAD ([facility]) pantoprazole 40 MG Delayed Release Oral Tablet THAD ([facility]) Nystatin 501430 UNT/ML Topical Cream THAD ([facility]) Hydrochlorothiazide 12.5 MG / Lisinopril 10 MG Oral Tablet THAD ([facility]) duloxetine 30 MG Delayed Release Oral Capsule THAD ([facility]) Citalopram 20 MG Oral Tablet THAD ([facility]) Cephalexin 500 MG Oral Capsule THAD ([facility]) mycophenolate mofetil 500 MG Oral Tablet [Cellcept] THAD ([facility]) Benlysta 200 mg/mL subcutaneous auto-injector THAD ([facility]) Baclofen 5 MG Oral Tablet AT SUJIT ([facility]) Baclofen 10 MG Oral Tablet A THENA ([facility]) Amoxicillin 500 MG Oral Capsule THAD ([facility]) Alprazolam 0.5 MG Oral Tablet THAD ([facility]) zonisamide 50 MG Oral Capsule THAD ([facility]) zonisamide 25 MG Oral Capsule THAD ([facility]) Suprep Bowel Prep Kit 17.5 gram-3.13 gram-1.6 gram oral solution THAD ([facility]) Prednisone 2.5 MG Oral Tablet THAD ([facility]) Prednisone 10 MG Oral Tablet THAD ([facility]) pantoprazole 40 MG Delayed Release Oral Tablet THAD ([facility]) Nystatin 229145 UNT/ML Topical Cream THAD ([facility]) Hydrochlorothiazide 12.5 MG / Lisinopril 10 MG Oral Tablet THAD ([facility]) duloxetine 30 MG Delayed Release Oral Capsule THAD ([facility]) Citalopram 20 MG Oral Tablet THAD ([facility]) Cephalexin 500 MG Oral Capsule THAD ([facility]) mycophenolate mofetil 500 MG Oral Tablet [Cellcept] THAD ([facility]) Benlysta 200 mg/mL subcutaneous auto-injector THAD ([facility]) Baclofen 5 MG Oral Tablet AT SUJIT ([facility]) Baclofen 10 MG Oral Tablet A THENA ([facility]) Amoxicillin 500 MG Oral Capsule THAD ([facility]) Alprazolam 0.5 MG Oral Tablet THAD ([facility]) zonisamide 50 MG Oral Capsule THAD ([facility]) zonisamide 25 MG Oral Capsule THAD ([facility]) Suprep Bowel Prep Kit 17.5 gram-3.13 gram-1.6 gram oral solution THAD ([facility]) Prednisone 2.5 MG Oral Tablet THAD ([facility]) Prednisone 10 MG Oral Tablet THAD ([facility]) pantoprazole 40 MG Delayed Release Oral Tablet THAD ([facility]) Nystatin 194157 UNT/ML Topical Cream THAD ([facility]) Hydrochlorothiazide 12.5 MG / Lisinopril 10 MG Oral Tablet THAD ([facility]) duloxetine 30 MG Delayed Release Oral Capsule THAD ([facility]) Citalopram 20 MG Oral Tablet THAD ([facility]) Cephalexin 500 MG Oral Capsule THAD ([facility]) mycophenolate mofetil 500 MG Oral Tablet [Cellcept] THAD ([facility]) Benlysta 200 mg/mL subcutaneous auto-injector THAD ([facility]) Baclofen 5 MG Oral Tablet AT SUJIT ([facility]) Baclofen 10 MG Oral Tablet A THENA ([facility]) Amoxicillin 500 MG Oral Capsule THAD ([facility]) Alprazolam 0.5 MG Oral Tablet THAD ([facility]) Hydrochlorothiazide 12.5 MG / Lisinopril 10 MG Oral Tablet THAD ([facility]) duloxetine 30 MG Delayed Release Oral Capsule THAD ([facility]) Citalopram 20 MG Oral Tablet THAD ([facility]) Cephalexin 500 MG Oral Capsule THAD ([facility]) mycophenolate mofetil 500 MG Oral Tablet [Cellcept] THAD ([facility]) Benlysta 200 mg/mL subcutaneous auto-injector THAD ([facility]) Baclofen 5 MG Oral Tablet AT SUJIT ([facility]) Baclofen 10 MG Oral Tablet A THENA ([facility]) Amoxicillin 500 MG Oral Capsule THAD ([facility]) Alprazolam 0.5 MG Oral Tablet THAD ([facility]) zonisamide 50 MG Oral Capsule THAD ([facility]) zonisamide 25 MG Oral Capsule THAD ([facility]) Suprep Bowel Prep Kit 17.5 gram-3.13 gram-1.6 gram oral solution THAD ([facility]) Prednisone 5 MG Oral Tablet THAD ([facility]) Prednisone 2.5 MG Oral Tablet THAD ([facility]) Prednisone 10 MG Oral Tablet THAD ([facility]) pantoprazole 40 MG Delayed Release Oral Tablet THAD ([facility]) Nystatin 621501 UNT/ML Topical Cream THAD ([facility]) Hydrochlorothiazide 12.5 MG / Lisinopril 10 MG Oral Tablet THAD ([facility]) duloxetine 30 MG Delayed Release Oral Capsule THAD ([facility]) Citalopram 20 MG Oral Tablet THAD ([facility]) Cephalexin 500 MG Oral Capsule THAD ([facility]) mycophenolate mofetil 500 MG Oral Tablet [Cellcept] THAD ([facility]) Benlysta 200 mg/mL subcutaneous auto-injector THAD ([facility]) Baclofen 5 MG Oral Tablet AT SUJIT ([facility]) Baclofen 10 MG Oral Tablet A THENA ([facility]) Amoxicillin 500 MG Oral Capsule THAD ([facility]) Alprazolam 0.5 MG Oral Tablet THAD ([facility]) zonisamide 50 MG Oral Capsule THAD ([facility]) zonisamide 25 MG Oral Capsule THAD ([facility]) Suprep Bowel Prep Kit 17.5 gram-3.13 gram-1.6 gram oral solution THAD ([facility]) Prednisone 5 MG Oral Tablet THAD ([facility]) Prednisone 2.5 MG Oral Tablet THAD ([facility]) Prednisone 10 MG Oral Tablet THAD ([facility]) pantoprazole 40 MG Delayed Release Oral Tablet THAD ([facility]) Nystatin 088769 UNT/ML Topical Cream THAD ([facility]) Hydrochlorothiazide 12.5 MG / Lisinopril 10 MG Oral Tablet THAD ([facility]) duloxetine 30 MG Delayed Release Oral Capsule THAD ([facility]) Citalopram 20 MG Oral Tablet THAD ([facility]) Cephalexin 500 MG Oral Capsule THAD ([facility]) mycophenolate mofetil 500 MG Oral Tablet [Cellcept] THAD ([facility]) zonisamide 50 MG Oral Capsule THAD ([facility]) zonisamide 25 MG Oral Capsule THAD ([facility]) Suprep Bowel Prep Kit 17.5 gram-3.13 gram-1.6 gram oral solution THAD ([facility]) Prednisone 2.5 MG Oral Tablet THAD ([facility]) Prednisone 10 MG Oral Tablet THAD ([facility]) pantoprazole 40 MG Delayed Release Oral Tablet THAD ([facility]) Nystatin 892158 UNT/ML Topical Cream THAD ([facility]) Hydrochlorothiazide 12.5 MG / Lisinopril 10 MG Oral Tablet THAD ([facility]) duloxetine 30 MG Delayed Release Oral Capsule THAD ([facility]) Citalopram 20 MG Oral Tablet THAD ([facility]) Cephalexin 500 MG Oral Capsule THAD ([facility]) mycophenolate mofetil 500 MG Oral Tablet [Cellcept] THAD ([facility]) Benlysta 200 mg/mL subcutaneous auto-injector THAD ([facility]) Baclofen 5 MG Oral Tablet AT SUJIT ([facility]) Baclofen 10 MG Oral Tablet A THENA ([facility]) Amoxicillin 500 MG Oral Capsule THAD ([facility]) Alprazolam 0.5 MG Oral Tablet THAD ([facility]) zonisamide 50 MG Oral Capsule THAD ([facility]) zonisamide 25 MG Oral Capsule THAD ([facility]) Benlysta 200 mg/mL subcutaneous auto-injector THAD ([facility]) Baclofen 5 MG Oral Tablet AT SUJIT ([facility]) Baclofen 10 MG Oral Tablet A THENA ([facility]) Amoxicillin 500 MG Oral Capsule THAD ([facility]) Alprazolam 0.5 MG Oral Tablet THAD ([facility]) zonisamide 50 MG Oral Capsule THAD ([facility]) zonisamide 25 MG Oral Capsule THAD ([facility]) Suprep Bowel Prep Kit 17.5 gram-3.13 gram-1.6 gram oral solution THAD ([facility]) Prednisone 5 MG Oral Tablet THAD ([facility]) Prednisone 2.5 MG Oral Tablet THAD ([facility]) Prednisone 10 MG Oral Tablet THAD ([facility]) pantoprazole 40 MG Delayed Release Oral Tablet THAD ([facility]) Nystatin 551739 UNT/ML Topical Cream THAD ([facility]) Hydrochlorothiazide 12.5 MG / Lisinopril 10 MG Oral Tablet THAD ([facility]) duloxetine 30 MG Delayed Release Oral Capsule THAD ([facility]) Citalopram 20 MG Oral Tablet THAD ([facility]) Cephalexin 500 MG Oral Capsule THAD ([facility]) mycophenolate mofetil 500 MG Oral Tablet [Cellcept] THAD ([facility]) Benlysta 200 mg/mL subcutaneous auto-injector THAD ([facility]) Baclofen 5 MG Oral Tablet AT SUJIT ([facility]) Baclofen 10 MG Oral Tablet A THENA ([facility]) Amoxicillin 500 MG Oral Capsule THAD ([facility]) Alprazolam 0.5 MG Oral Tablet THAD ([facility]) zonisamide 50 MG Oral Capsule THAD ([facility]) zonisamide 25 MG Oral Capsule THAD ([facility]) Suprep Bowel Prep Kit 17.5 gram-3.13 gram-1.6 gram oral solution THAD ([facility]) Prednisone 5 MG Oral Tablet THAD ([facility]) Prednisone 2.5 MG Oral Tablet THAD ([facility]) Prednisone 10 MG Oral Tablet THAD ([facility]) pantoprazole 40 MG Delayed Release Oral Tablet THAD ([facility]) Nystatin 979579 UNT/ML Topical Cream THAD ([facility]) Hydrochlorothiazide 12.5 MG / Lisinopril 10 MG Oral Tablet THAD ([facility]) duloxetine 30 MG Delayed Release Oral Capsule THAD ([facility]) Citalopram 20 MG Oral Tablet THAD ([facility]) Cephalexin 500 MG Oral Capsule THAD ([facility]) mycophenolate mofetil 500 MG Oral Tablet [Cellcept] THAD ([facility]) Benlysta 200 mg/mL subcutaneous auto-injector THAD ([facility]) Baclofen 5 MG Oral Tablet AT SUJIT ([facility]) Baclofen 10 MG Oral Tablet A THENA ([facility]) Amoxicillin 500 MG Oral Capsule THAD ([facility]) Alprazolam 0.5 MG Oral Tablet THAD ([facility]) zonisamide 50 MG Oral Capsule THAD ([facility]) zonisamide 25 MG Oral Capsule THAD ([facility]) Suprep Bowel Prep Kit 17.5 gram-3.13 gram-1.6 gram oral solution THAD ([facility]) Prednisone 5 MG Oral Tablet THAD ([facility]) Prednisone 2.5 MG Oral Tablet THAD ([facility]) Prednisone 10 MG Oral Tablet THAD ([facility]) pantoprazole 40 MG Delayed Release Oral Tablet THAD ([facility]) Nystatin 172463 UNT/ML Topical Cream THAD ([facility])
[2020-08-19 11:58] LABS: HEMATOCRIT 39.9 % (36.0-47.0); HEMOGLOBIN 12.4 g/dl (12.0-15.5); MEAN CORPUSCULAR HEMOGLOBIN 25.5 pg (27.0-33.0); MEAN CORPUSCULAR HGB CONC 31.1 g/dl (32.0-36.5); MEAN CORPUSCULAR VOLUME 81.9 fl (80.0-96.0); PLATELET COUNT, AUTOMATED 147 10^3/uL (150-450); RED BLOOD COUNT 4.87 10^6/uL (4.00-5.40); WHITE BLOOD COUNT 3.4 10^3/uL (4.0-10.0)
[2020-08-19 12:10] LABS: INR 2.83; PROTHROMBIN TIME 30.4 SECONDS (12.5-14.3)
--- NOTE | 2020-08-19 12:18 | REP ---
INDICATION: left LE swelling. COMPARISON: Comparison study June 27, 2019.. TECHNIQUE: Left lower extremity duplex venous ultrasound. FINDINGS: The deep veins are anechoic and fully compressible from the groin to the popliteal fossa in the left lower extremity. Color flow imaging is homogeneous. Spectral Doppler interrogation demonstrates intact respiratory variation in flow and normal manual augmentation of flow. There is no evidence of deep vein thrombosis. There is a 6.3 x 1.6 x 4.1 cm fluid collection in the posterior popliteal soft tissues on the left consistent with a Lloyd's cyst. IMPRESSION: Negative left lower extremity duplex venous ultrasound. No evidence of deep vein thrombosis. Left-sided Lloyd's cyst noted. <Electronically signed by Raghavendra Aguilar > 08/19/20 [id number]
[2020-08-19 12:25] LABS: BLOOD UREA NITROGEN 13 MG/DL (7-18); CALCIUM LEVEL 8.6 MG/DL (8.5-10.1); CARBON DIOXIDE LEVEL 31 MEQ/L (21-32); CHLORIDE LEVEL 106 MEQ/L (98-107); CK-MB VALUE MASS < 1.0 NG/ML (<3.6); CPK CREATINE PHOSPHOKINASE 56 U/L (26-192); CREATININE FOR GFR 1.01 MG/DL (0.55-1.30); GLOMERULAR FILTRATION RATE > 60.0 (>51); GLUCOSE, FASTING 92 MG/DL (70-100); MB/CK RELATIVE INDEX 1.79 (< OR =4); POTASSIUM SERUM 3.5 MEQ/L (3.5-5.1); SODIUM LEVEL 140 MEQ/L (136-145); TROPONIN I < 0.02 NG/ML (< 0.10)
[2020-08-19] MEDS ORDERED: ISOVUE-370 76% 100ML VIAL As Ordered ONE (12:34)
--- NOTE | 2020-08-19 12:54 | REP ---
INDICATION: headache. COMPARISON: Comparison CT study September 12, 2018.. TECHNIQUE: Helical scanning is acquired. 5 mm axial images were reformatted. Coronal MPR images were generated. FINDINGS: Bone window settings demonstrate an intact bony calvarium. There is no evidence of skull fracture or incidental bony calvarial lesion. There are mucous retention cyst partially opacifying the maxillary sinuses bilaterally. The paranasal sinuses are otherwise clear as visualized.. No intraorbital abnormality is seen. On soft tissue window setting images; the lateral, third, and fourth ventricles are normal in size and position. Garcia-white differentiation pattern is normal above and below the tentorium. There are is no evidence of intracranial hemorrhage. No mass, edema, infarction, or midline shift is seen. No extra-axial fluid collection is appreciated. IMPRESSION: Mucous retention cysts are seen in each maxillary sinus. Otherwise negative CT study of the brain without contrast.. <Electronically signed by Raghavendra Aguilar > 08/19/20 [id number]
--- NOTE | 2020-08-19 13:16 | REP ---
INDICATION: Antiphospholipid antibody, chest pain. COMPARISON: 04/20/2020. 06/27/2019. TECHNIQUE: CT angiogram chest performed following the intravenous administration of 100 cc of Isovue 370. Sagittal and coronal reconstruction images are performed. FINDINGS: Lungs: Clear, no infiltrate or nodule. Mediastinum: No adenopathy. Pulmonary arteries: No evidence of pulmonary embolism. Janee: No adenopathy. Axilla: No adenopathy. Pleura: No effusion. Heart: Not enlarged. Thoracic aorta: No aneurysm or dissection. Upper abdominal structures: There has been a prior cholecystectomy.. Visualized osseous structures: There are mild degenerative changes of the spine without compression deformity. IMPRESSION: No CT evidence of pulmonary embolism.No infiltrate seen. <Electronically signed by Garry Garcia > 08/19/20 1316
[2020-08-19] MEDS ORDERED: ACETAMINOPHEN TAB 650MG DOSE (2X325MG) PO ONE (14:15)
[2020-08-19 14:43] VITALS: BP 111/59
--- NOTE | 2020-08-20 05:39 | ECGEPIP ---
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
== END 2020-08-19 14:45 | disposition home or self-care (01) ==
LOC: M ED 10:38
DX: R07.89 Other chest pain (principal); D68.61 Antiphospholipid syndrome; R22.42 Localized swelling, mass and lump, left lower limb; M71.22 Synovial cyst of popliteal space [Baker], left knee; J34.1 Cyst and mucocele of nose and nasal sinus; R51.9 Headache, unspecified; R11.0 Nausea; Z88.1 Allergy status to other antibiotic agents; Z88.6 Allergy status to analgesic agent; Z88.8 Allergy status to other drugs, medicaments and biological substances; Z79.01 Long term (current) use of anticoagulants; Z79.51 Long term (current) use of inhaled steroids; Z79.899 Other long term (current) drug therapy
CPT/HCPCS: 36415; 70450; 71275; 80048; 82550; 82553; 84484; 85027; 85610; 85730; 93005; 93971; 99285; Q9967

== ENCOUNTER → 2020-08-27 | Outpatient (CLI) | payer SELFPAY ==
[~2020-08-27] MED LIST changes: +FAMO40TA3; +HYDR-3713 PO; +PERC5TAB12 PO; +PRED10TA2 PO
== END ==
LOC: M LABSMTC 12:29
PROVIDERS: ATTEND Pediatrics
DX: Z20.822 Contact with and (suspected) exposure to COVID-19 (principal)

== ENCOUNTER → 2020-09-01 | Outpatient (CLI) | payer MEDICARE, MEDICAID ==
[~2020-09-01] MED LIST changes: -HYDR-3713 PO; -METH-1164; +METH1TAB40; -PERC5TAB12 PO; -PRED10TA2 PO
[2020-09-01 10:43] LABS: INR 2.07; PROTHROMBIN TIME 23.8 SECONDS (12.5-14.3)
== END ==
LOC: M LAB 09:45
PROVIDERS: ATTEND Internal Medicine Hematology & Oncology
DX: Z79.01 Long term (current) use of anticoagulants (principal)

== ENCOUNTER → 2020-09-01 | Outpatient (CLI) | payer MEDICARE, MEDICAID ==
[2020-09-01 10:33] LABS: BASO % 0.6 % (0.0-1.0); EOS # 0.1 10^3/uL (0.0-0.5); EOS % 4.1 % (0.0-3.0); HEMATOCRIT 39.9 % (36.0-47.0); HEMOGLOBIN 12.8 g/dl (12.0-15.5); LYMPH # 0.7 10^3/uL (1.5-5.0); LYMPH % 22.3 % (24.0-44.0); MEAN CORPUSCULAR HEMOGLOBIN 25.9 pg (27.0-33.0); MEAN CORPUSCULAR HGB CONC 32.1 g/dl (32.0-36.5); MEAN CORPUSCULAR VOLUME 80.8 fl (80.0-96.0); MONO # 0.3 10^3/uL (0.0-0.8); MONO % 9.7 % (0.0-5.0); NEUTROPHILS % 62.7 % (36.0-66.0); PLATELET COUNT, AUTOMATED 142 10^3/uL (150-450); RED BLOOD COUNT 4.94 10^6/uL (4.00-5.40); WHITE BLOOD COUNT 3.2 10^3/uL (4.0-10.0)
[2020-09-01 11:14] LABS: ALBUMIN 3.4 GM/DL (3.2-5.2); ALT/SGPT 23 U/L (12-78); BILIRUBIN,TOTAL 0.3 MG/DL (0.2-1.0); BLOOD UREA NITROGEN 15 MG/DL (7-18); CARBON DIOXIDE LEVEL 32 MEQ/L (21-32); CHLORIDE LEVEL 105 MEQ/L (98-107); CHOLESTEROL LEVEL 172 MG/DL (<200); CREATININE FOR GFR 0.97 MG/DL (0.55-1.30); FREE T4 1.38 NG/DL (0.76-1.46); GLOMERULAR FILTRATION RATE > 60.0 (>51); GLUCOSE, FASTING 88 MG/DL (70-100); HDL CHOLESTEROL 43 MG/DL (>40); LDL CHOLESTEROL 105 MG/DL (<100); NON-HDL-C 129 MG/DL; POTASSIUM SERUM 3.7 MEQ/L (3.5-5.1); SODIUM LEVEL 141 MEQ/L (136-145); TOTAL PROTEIN 7.1 GM/DL (6.4-8.2); TRIGLYCERIDES LEVEL 121 MG/DL (<150)
== END ==
LOC: M LAB 09:49
PROVIDERS: ATTEND Physician Assistant
DX: E78.5 Hyperlipidemia, unspecified (principal); J45.40 Moderate persistent asthma, uncomplicated; E03.9 Hypothyroidism, unspecified

== ENCOUNTER 2020-09-08 07:23 | Emergency (ER) | payer MEDICARE, MEDICAID ==
[~2020-09-08] VITALS: Ht 172.7 cm; Wt 152.2 kg
[~2020-09-08 07:23] MED LIST changes: +METH-1164; -METH1TAB40
--- NOTE | 2020-09-08 08:06 | REP ---
INDICATION: CHEST PAIN. COMPARISON: Comparison study June 27, 2019. TECHNIQUE: Portable upright AP chest radiograph. FINDINGS: The lungs are well inflated and free of infiltrate. Pleural angles are sharp. Heart size is normal. Pulmonary vasculature is not increased. Monitoring electrodes are seen projecting at the bases. IMPRESSION: No active disease. <Electronically signed by Raghavendra Aguilar > 09/08/20 0802
[2020-09-08 08:10] LABS: BASO % 0.5 % (0.0-1.0); EOS # 0.1 10^3/uL (0.0-0.5); EOS % 3.6 % (0.0-3.0); HEMATOCRIT 40.4 % (36.0-47.0); HEMOGLOBIN 12.9 g/dl (12.0-15.5); LYMPH # 0.8 10^3/uL (1.5-5.0); LYMPH % 19.8 % (24.0-44.0); MEAN CORPUSCULAR HEMOGLOBIN 25.6 pg (27.0-33.0); MEAN CORPUSCULAR HGB CONC 31.9 g/dl (32.0-36.5); MEAN CORPUSCULAR VOLUME 80.2 fl (80.0-96.0); MONO # 0.3 10^3/uL (0.0-0.8); MONO % 7.6 % (0.0-5.0); NEUTROPHILS # 2.7 10^3/uL (1.5-8.5); PLATELET COUNT, AUTOMATED 147 10^3/uL (150-450); RED BLOOD COUNT 5.04 10^6/uL (4.00-5.40); WHITE BLOOD COUNT 3.9 10^3/uL (4.0-10.0)
[2020-09-08] MEDS ORDERED: GI COCKTAIL 50ML BTL(HYOSCYAMINE/MAALOX/LIDOCAINE VISCOUS)(1:3:1) PO ONE (08:15)
[2020-09-08 08:39] LABS: BLOOD UREA NITROGEN 11 MG/DL (7-18); CALCIUM LEVEL 8.6 MG/DL (8.5-10.1); CARBON DIOXIDE LEVEL 27 MEQ/L (21-32); CHLORIDE LEVEL 106 MEQ/L (98-107); CREATININE FOR GFR 0.97 MG/DL (0.55-1.30); GLOMERULAR FILTRATION RATE > 60.0 (>51); GLUCOSE, FASTING 95 MG/DL (70-100); POTASSIUM SERUM 3.5 MEQ/L (3.5-5.1); SODIUM LEVEL 140 MEQ/L (136-145)
[2020-09-08] MEDS ORDERED: ISOVUE-370 76% 100ML VIAL As Ordered ONE (08:59)
[2020-09-08 09:11] LABS: ALBUMIN 3.4 GM/DL (3.2-5.2); ALT/SGPT 25 U/L (12-78); BILIRUBIN,DIRECT < 0.1 MG/DL (0.0-0.2); BILIRUBIN,TOTAL 0.2 MG/DL (0.2-1.0); LIPASE 136 U/L (73-393); TOTAL PROTEIN 7.1 GM/DL (6.4-8.2)
[2020-09-08] MEDS ORDERED: KETOROLAC 30 MG/ML 1ML VIAL As Ordered ONE (09:23)
[2020-09-08 09:26] LABS: INR 2.43; PARTIAL THROMBOPLASTIN TIME 37.8 SECONDS (24.2-38.5)
[2020-09-08] MEDS ORDERED: KETOROLAC 30 MG/ML 1ML VIAL IV ONE (09:30)
--- NOTE | 2020-09-08 09:39 | REP ---
INDICATION: pleuritic chest pain, h/o PE. COMPARISON: Comparison CT study 19 August 2020.. TECHNIQUE: Contrast dose: One hundred ML of Isovue [address] technique: Helical scanning is acquired and overlapping 1.5 mm and contiguous 3 mm axial images are reformatted. In addition, maximum intensity projection and multiplanar re-formation images are generated in sagittal and coronal imaging projections. FINDINGS: There is good opacification in the pulmonary arterial tree. There is no evidence of vessel cut off or filling defect to suggest pulmonary embolus. Homogeneous opacity is seen in the thoracic aorta. There is no evidence of aneurysm or dissection. Lung window settings demonstrate show no evidence of infiltrate. No mass, pleural effusion or significant lung nodule is seen. In the upper abdomen, there is an accessory splenule. Normal adrenal glands. There are clips in the gallbladder fossa. No hilar or mediastinal mass or adenopathy is observed. Bone window settings show no bony destructive lesion. IMPRESSION: No CT evidence of pulmonary embolus. No active cardiopulmonary disease seen. <Electronically signed by Raghavendra Aguilar > 09/08/20 0911
--- NOTE | 2020-09-08 09:43 | REP ---
INDICATION: left upper quadrant pain. COMPARISON: Comparison CT abdomen pelvis October 13, 2019.. TECHNIQUE: Helical scanning was acquired and 4 mm axial images are re-formatted. Coronal and sagittal MPR images were generated and reviewed. The contrast enhancement dose is 100 mL of intravenous Isovue 370. FINDINGS: Preliminary digital hearing aid fitter radiograph shows an unremarkable bowel gas pattern. There is no evidence of pleural effusion or upper abdominal ascites. The liver is normal in size homogeneous in texture. Surgical clips are noted in the gallbladder fossa post cholecystectomy. No abnormality is noted in the pancreas. The spleen is felt mildly enlarged 15 cm greatest diameter. There is a granulomatous calcification in the spleen. No adrenal abnormality is observed. The kidneys enhance symmetrically and are morphologically intact. For normal caliber abdominal aorta is seen. No retroperitoneal mass or adenopathy is observed. A normal appendix is seen in the right lower quadrant. Small and large bowel loops are unremarkable. The uterus is surgically absent. There is a ventral hernia just above the level of the umbilicus trans Ga omental fat through an anterior abdominal wall defect measuring 2.5 cm in greatest diameter. No other abdominal wall defect is seen. IMPRESSION: Mild splenomegaly unchanged. Ventral hernia trans Ga omental fat also unchanged. Post cholecystectomy and hysterectomy. No acute abdominal or pelvic abnormality seen. <Electronically signed by Raghavendra Aguilar > 09/08/20 2356
[2020-09-08 10:33] LABS: RSV AMPLIFICATION NEGATIVE (NEGATIVE)
[2020-09-08] MEDS ORDERED: dexameTHASONE 20MG/5ML VIAL (J1100 PER 1MG) IV ONE (13:30)
[2020-09-08] MEDS ORDERED: PRED10TA2 PO (14:05)
[2020-09-08] MEDS ORDERED: PERC5TAB12 PO (14:05)
[2020-09-08 14:15] VITALS: BP 111/61
[2020-09-08] MEDS: PERCOCET 5MG/325MG TAB PO ONE ×2 (14:15→14:19)
[2020-09-08] MEDS ORDERED: NORCO, ANEXSIA 5/325MG TABLET (HYDROcodone/ACETAMINOPHEN) PO ONE (14:30)
[2020-09-08] MEDS ORDERED: HYDR-3713 PO (14:54)
--- NOTE | 2020-09-09 08:45 | ECGEPIP ---
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
--- NOTE | 2020-09-09 08:50 | ECGEPIP ---
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
== END 2020-09-08 14:59 | disposition home or self-care (01) ==
LOC: M ED 07:23
DX: R07.89 Other chest pain (principal); R06.02 Shortness of breath; R07.1 Chest pain on breathing; D73.89 Other diseases of spleen; K43.9 Ventral hernia without obstruction or gangrene; Z79.01 Long term (current) use of anticoagulants; Z79.899 Other long term (current) drug therapy; Z88.1 Allergy status to other antibiotic agents; Z88.5 Allergy status to narcotic agent; Z88.8 Allergy status to other drugs, medicaments and biological substances
CPT/HCPCS: 71045; 71275; 74177; 80048; 80076; 83605; 83690; 84484; 85025; 85610; 85730; 87631; 93005; 93041; 94760; 96374; 96375; 99285; J1100; J1885; Q9967

== ENCOUNTER → 2020-09-22 | Outpatient (CLI) | payer MEDICARE, MEDICAID ==
[~2020-09-22] MED LIST changes: +E-Z-GAS II EFFERVESCENT PACKET (SODIUM BICARB./CITRIC ACID/SIMETHICONE) As Ordered ONE; +E-Z-HD 98% w/w 340GM SUSP BTL As Ordered ONE; +E-Z-PAQUE 96% w/w SUSP 176GM BTL As Ordered ONE; +HYDR-3713 PO; +PERC5TAB12 PO; +PRED10TA2 PO
--- NOTE | 2020-09-22 16:16 | REP ---
INDICATION: EPIGASTRIC PAIN, GERD, LABS 1ST THEN UGI. COMPARISON: None TECHNIQUE: This procedure was performed by Anne-Marie Rodgers [facility], under the direct supervision of Dr. Aguilar. Images were reviewed with Dr. Aguilar prior to dictation. Liquid barium and gas producing crystals were given in the erect position, as well as liquid barium in the prone oblique position in order to perform a double contrast upper GI examination. FINDINGS: The milking worker film shows no organomegaly or pathological masses. The intestinal gas pattern is unremarkable. There are surgical clips in the right upper quadrant. The oral and pharyngeal stages of deglutition were unremarkable. Esophageal transport is prompt and efficient and there is no evidence of esophagitis, stricture, or mucosal ring. There is no evidence of a hiatal hernia. Gastroesophageal reflux was visualized to the level of the [place]. The stomach olmos are normally outlined. The rugal folds are smooth and regular. There is no gastritis, neoplasm, or ulcerative disease. The duodenal olmos are normally outlined. The mucosal folds are smooth and regular. There is no duodenitis, peptic ulcer disease or neoplasm. The visualized portion of the proximal small bowel appears normal in course and caliber. IMPRESSION: Gastroesophageal reflux to the level of the [place]. 0.3 minutes of fluoroscopy time was utilized for this procedure. Some fluoroscopic images are performed with last image hold technology. These images require no additional radiation. <Electronically signed by Anne-Marie Rodgers > 09/22/20 1606 <Electronically signed by Raghavendra Aguilar > 09/22/20 1619
== END ==
LOC: M RAD 09:20
PROVIDERS: ATTEND Physician Assistant Medical
DX: R10.13 Epigastric pain (principal)

== ENCOUNTER → 2020-09-22 | Outpatient (CLI) | payer MEDICARE, MEDICAID ==
[~2020-09-22] MED LIST changes: -E-Z-GAS II EFFERVESCENT PACKET (SODIUM BICARB./CITRIC ACID/SIMETHICONE) As Ordered ONE; -E-Z-HD 98% w/w 340GM SUSP BTL As Ordered ONE; -E-Z-PAQUE 96% w/w SUSP 176GM BTL As Ordered ONE
[2020-09-22 11:02] LABS: INR 2.74; PROTHROMBIN TIME 29.6 SECONDS (12.5-14.3)
== END ==
LOC: M LAB 09:25
PROVIDERS: ATTEND Internal Medicine Hematology & Oncology
DX: I26.99 Other pulmonary embolism without acute cor pulmonale (principal); M32.9 Systemic lupus erythematosus, unspecified; Z79.01 Long term (current) use of anticoagulants

== ENCOUNTER → 2020-09-29 | Outpatient (CLI) | payer MEDICARE, MEDICAID ==
[2020-09-29 13:33] LABS: INR 2.23; PROTHROMBIN TIME 25.2 SECONDS (12.5-14.3)
== END ==
LOC: M LAB 11:37
PROVIDERS: ATTEND Internal Medicine Hematology & Oncology
DX: I26.99 Other pulmonary embolism without acute cor pulmonale (principal); M32.9 Systemic lupus erythematosus, unspecified; Z79.01 Long term (current) use of anticoagulants

== ENCOUNTER → 2020-10-02 | Outpatient (CLI) | payer MEDICARE, MEDICAID ==
--- NOTE | 2020-10-02 12:54 | REP ---
INDICATION: CHANGE IN BOWEL HABIT COMPARISON: None. TECHNIQUE: Supine views of the abdomen and pelvis. FINDINGS: Bowel gas pattern is nonspecific and without obstruction or perforation. No organomegaly. Prior cholecystectomy. No abnormal calcifications. Skeletal structures intact. IMPRESSION: Normal abdominal radiograph. Nonspecific bowel gas pattern. <Electronically signed by Cheo Shaw > 10/02/20 [id number]
== END ==
LOC: M RAD 12:29
PROVIDERS: ATTEND Physician Assistant Medical
DX: R19.4 Change in bowel habit (principal)

== ENCOUNTER → 2020-10-06 | Outpatient (CLI) | payer MEDICARE, MEDICAID ==
[2020-10-06 12:32] LABS: INR 1.99
== END ==
LOC: M LAB 11:52
PROVIDERS: ATTEND Internal Medicine Hematology & Oncology
DX: Z79.01 Long term (current) use of anticoagulants (principal); M32.9 Systemic lupus erythematosus, unspecified; I26.99 Other pulmonary embolism without acute cor pulmonale

== ENCOUNTER → 2020-10-13 | Outpatient (CLI) | payer MEDICARE, MEDICAID ==
[2020-10-13 11:09] LABS: INR 2.25; PROTHROMBIN TIME 25.4 SECONDS (12.5-14.3)
== END ==
LOC: M LAB 10:05
PROVIDERS: ATTEND Internal Medicine Hematology & Oncology
DX: I26.99 Other pulmonary embolism without acute cor pulmonale (principal); Z79.01 Long term (current) use of anticoagulants

== ENCOUNTER → 2020-10-20 | Outpatient (CLI) | payer MEDICARE, MEDICAID ==
[2020-10-20 12:18] LABS: INR 2.94; PROTHROMBIN TIME 31.3 SECONDS (12.5-14.3)
== END ==
LOC: M LAB 11:23
PROVIDERS: ATTEND Internal Medicine Hematology & Oncology
DX: I26.99 Other pulmonary embolism without acute cor pulmonale (principal); M32.9 Systemic lupus erythematosus, unspecified; Z79.01 Long term (current) use of anticoagulants

== ENCOUNTER → 2020-10-27 | Outpatient (CLI) | payer MEDICARE, MEDICAID ==
[2020-10-27 13:09] LABS: INR 2.7; PROTHROMBIN TIME 29.3 SECONDS (12.5-14.3)
== END ==
LOC: M LAB 12:08
PROVIDERS: ATTEND Internal Medicine Hematology & Oncology
DX: Z79.01 Long term (current) use of anticoagulants (principal)

== ENCOUNTER → 2020-11-03 | Outpatient (CLI) | payer MEDICARE, MEDICAID ==
[2020-11-03 15:50] LABS: INR 3.06; PROTHROMBIN TIME 32.3 SECONDS (12.5-14.3)
== END ==
LOC: M LAB 15:13
PROVIDERS: ATTEND Internal Medicine Hematology & Oncology
DX: Z79.01 Long term (current) use of anticoagulants (principal)

== ENCOUNTER → 2020-11-10 | Outpatient (CLI) | payer MEDICARE, MEDICAID ==
[2020-11-10 11:44] LABS: INR 2.5; PROTHROMBIN TIME 27.6 SECONDS (12.5-14.3)
== END ==
LOC: M LAB 10:52
PROVIDERS: ATTEND Internal Medicine Hematology & Oncology
DX: Z51.81 Encounter for therapeutic drug level monitoring (principal); Z79.01 Long term (current) use of anticoagulants

== ENCOUNTER → 2020-11-17 | Outpatient (CLI) | payer MEDICARE, MEDICAID ==
[2020-11-17 12:07] LABS: INR 2.85; PROTHROMBIN TIME 30.6 SECONDS (12.5-14.3)
== END ==
LOC: M LAB 11:12
PROVIDERS: ATTEND Internal Medicine Hematology & Oncology
DX: Z51.81 Encounter for therapeutic drug level monitoring (principal); Z79.01 Long term (current) use of anticoagulants

== ENCOUNTER → 2020-11-24 | Outpatient (CLI) | payer MEDICARE, MEDICAID ==
[2020-11-24 14:34] LABS: INR 2.72; PROTHROMBIN TIME 29.4 SECONDS (12.5-14.3)
== END ==
LOC: M LAB 13:43
PROVIDERS: ATTEND Internal Medicine Hematology & Oncology
DX: Z51.81 Encounter for therapeutic drug level monitoring (principal); Z79.01 Long term (current) use of anticoagulants; I26.99 Other pulmonary embolism without acute cor pulmonale; M32.9 Systemic lupus erythematosus, unspecified

== ENCOUNTER → 2020-12-01 | Outpatient (CLI) | payer MEDICARE, MEDICAID ==
[2020-12-01 13:57] LABS: INR 2.48; PROTHROMBIN TIME 27.4 SECONDS (12.5-14.3)
== END ==
LOC: M LAB 12:55
PROVIDERS: ATTEND Internal Medicine Hematology & Oncology
DX: I26.99 Other pulmonary embolism without acute cor pulmonale (principal); M32.9 Systemic lupus erythematosus, unspecified; Z79.01 Long term (current) use of anticoagulants

== ENCOUNTER → 2020-12-08 | Outpatient (CLI) | payer MEDICARE, MEDICAID ==
[~2020-12-08] MED LIST changes: +BACTDSTA PO; -SULF1TAB93 PO
[2020-12-08 13:18] LABS: INR 3.4; PROTHROMBIN TIME 35.1 SECONDS (12.5-14.3)
== END ==
LOC: M LAB 11:38
PROVIDERS: ATTEND Internal Medicine Hematology & Oncology
DX: I26.99 Other pulmonary embolism without acute cor pulmonale (principal)

== ENCOUNTER → 2020-12-15 | Outpatient (CLI) | payer MEDICARE, MEDICAID ==
[2020-12-15 13:01] LABS: ALBUMIN 3.4 GM/DL (3.2-5.2); ALT/SGPT 33 U/L (12-78); BILIRUBIN,TOTAL 0.3 MG/DL (0.2-1.0); BLOOD UREA NITROGEN 13 MG/DL (7-18); CALCIUM LEVEL 8.6 MG/DL (8.5-10.1); CARBON DIOXIDE LEVEL 30 MEQ/L (21-32); CHLORIDE LEVEL 107 MEQ/L (98-107); CREATININE FOR GFR 0.84 MG/DL (0.55-1.30); GLOMERULAR FILTRATION RATE > 60.0 (>51); GLUCOSE, FASTING 87 MG/DL (70-100); POTASSIUM SERUM 3.3 MEQ/L (3.5-5.1); SODIUM LEVEL 142 MEQ/L (136-145); TOTAL PROTEIN 7.3 GM/DL (6.4-8.2)
== END ==
LOC: M LAB 11:36
PROVIDERS: ATTEND Physician Assistant
DX: E87.6 Hypokalemia (principal); E03.9 Hypothyroidism, unspecified

== ENCOUNTER → 2020-12-15 | Outpatient (CLI) | payer MEDICARE, MEDICAID ==
[2020-12-15 12:37] LABS: INR 3.08; PROTHROMBIN TIME 32.5 SECONDS (12.5-14.3)
== END ==
LOC: M LAB 11:35
PROVIDERS: ATTEND Internal Medicine Hematology & Oncology
DX: Z51.81 Encounter for therapeutic drug level monitoring (principal); Z79.01 Long term (current) use of anticoagulants

== ENCOUNTER → 2020-12-23 | Outpatient (CLI) | payer MEDICARE, MEDICAID ==
[2020-12-23 11:01] LABS: INR 2.43
== END ==
LOC: M LAB 08:43
PROVIDERS: ATTEND Internal Medicine Hematology & Oncology
DX: Z51.81 Encounter for therapeutic drug level monitoring (principal); Z79.01 Long term (current) use of anticoagulants; I26.99 Other pulmonary embolism without acute cor pulmonale; M32.9 Systemic lupus erythematosus, unspecified

== ENCOUNTER → 2020-12-30 | Outpatient (CLI) | payer MEDICARE, MEDICAID ==
[2020-12-30 17:03] LABS: INR 2.43
== END ==
LOC: M LAB 16:02
PROVIDERS: ATTEND Internal Medicine Hematology & Oncology
DX: Z51.81 Encounter for therapeutic drug level monitoring (principal); Z79.01 Long term (current) use of anticoagulants; I26.99 Other pulmonary embolism without acute cor pulmonale

== ENCOUNTER 2021-01-04 06:02 | Emergency (ER) | payer MEDICARE, MEDICAID ==
[~2021-01-04] VITALS: Ht 172.7 cm; Wt 159.7 kg
[2021-01-04] MEDS ORDERED: ACET-683 PO (07:10)
[2021-01-04] MEDS ORDERED: ACETAMINOPHEN 500 MG TAB PO ONE (07:50)
[2021-01-04] MEDS ORDERED: METOCLOPRAMIDE INJ 10MG/2ML VIAL (J2765 PER 1) IV ONE (07:50)
[2021-01-04] MEDS ORDERED: diphenhydrAMINE 50MG/ML VIAL (J1200) IV ONE (07:50)
[2021-01-04] MEDS ORDERED: NS 1,000 ML IV ONE (07:50)
[2021-01-04 08:20] LABS: BASO % 0.4 % (0.0-1.0); EOS # 0.1 10^3/uL (0.0-0.5); EOS % 2.6 % (0.0-3.0); HEMATOCRIT 37.6 % (36.0-47.0); HEMOGLOBIN 11.9 g/dl (12.0-15.5); LYMPH # 0.9 10^3/uL (1.5-5.0); LYMPH % 19.6 % (24.0-44.0); MEAN CORPUSCULAR HEMOGLOBIN 25.4 pg (27.0-33.0); MEAN CORPUSCULAR HGB CONC 31.6 g/dl (32.0-36.5); MEAN CORPUSCULAR VOLUME 80.3 fl (80.0-96.0); MONO # 0.3 10^3/uL (0.0-0.8); MONO % 7.2 % (2.0-8.0); NEUTROPHILS # 3.2 10^3/uL (1.5-8.5); NEUTROPHILS % 69.8 % (36.0-66.0); PLATELET COUNT, AUTOMATED 148 10^3/uL (150-450); RED BLOOD COUNT 4.68 10^6/uL (4.00-5.40); WHITE BLOOD COUNT 4.6 10^3/uL (4.0-10.0)
--- NOTE | 2021-01-04 08:27 | REP ---
INDICATION: severe post occipital pain COMPARISON: 08/19/2020 TECHNIQUE: Axial noncontrast images from the skull base to the vertex with coronal reformations. This CT examination was performed using the following dose reduction techniques: Automated exposure control, adjustment of mA and/or kv according to the patient's size, and use of iterative reconstruction technique. FINDINGS: The ventricles, sulci, and cisterns are normal in position and appearance. Garcia-white differentiation is maintained. No acute intracranial hemorrhage, mass/mass effect, pathology or trauma/injury. No evidence for acute infarction. No extra-axial fluid collection. Calvarium is intact. Near complete opacification of the bilateral maxillary sinuses again noted suggesting large retention cysts and chronic sinus disease. IMPRESSION: No evidence for acute intracranial pathology or trauma/injury. Chronic maxillary sinusitis. <Electronically signed by Cheo Shaw > 01/04/21 [id number]
--- NOTE | 2021-01-04 08:30 | REP ---
INDICATION: severe post occipital pain COMPARISON: None. TECHNIQUE: Axial noncontrast images from the skull base to the thoracic inlet with coronal and sagittal re-formations This CT examination was performed using the following dose reduction techniques: Automated exposure control, adjustment of mA and/or kv according to the patient's size, and use of iterative reconstruction technique. FINDINGS: Mild reversal of normal lordosis with moderate/early advanced degenerative disc osteophyte complexes primarily involving C5-6, C6-7. No acute fracture/compression injury or subluxation. Spinal canal is patent. Mild facet arthropathy at the above-mentioned levels. IMPRESSION: Degenerative changes.. No evidence for acute pathology or trauma/injury. <Electronically signed by Cheo Shaw > 01/04/21 [id number]
[2021-01-04 09:00] LABS: BLOOD UREA NITROGEN 15 MG/DL (7-18); CALCIUM LEVEL 8.3 MG/DL (8.5-10.1); CARBON DIOXIDE LEVEL 26 MEQ/L (21-32); CHLORIDE LEVEL 109 MEQ/L (98-107); CREATININE FOR GFR 0.76 MG/DL (0.55-1.30); FREE T4 1.45 NG/DL (0.76-1.46); GLOMERULAR FILTRATION RATE > 60.0 (>51); GLUCOSE, FASTING 104 MG/DL (70-100); POTASSIUM SERUM 3.5 MEQ/L (3.5-5.1); SODIUM LEVEL 141 MEQ/L (136-145)
[2021-01-04 10:20] VITALS: BP 131/81
[2021-01-04 11:04] LABS: RSV AMPLIFICATION NEGATIVE (NEGATIVE)
== END 2021-01-04 10:22 | disposition home or self-care (01) ==
LOC: M ED 06:02
DX: G43.909 Migraine, unspecified, not intractable, without status migrainosus (principal); J32.0 Chronic maxillary sinusitis; M79.10 Myalgia, unspecified site; Z20.822 Contact with and (suspected) exposure to COVID-19; M25.78 Osteophyte, vertebrae; I10 Essential (primary) hypertension; M35.00 Sjogren syndrome, unspecified; M32.9 Systemic lupus erythematosus, unspecified; G47.33 Obstructive sleep apnea (adult) (pediatric); E03.9 Hypothyroidism, unspecified; Z86.718 Personal history of other venous thrombosis and embolism; Z88.1 Allergy status to other antibiotic agents; Z88.8 Allergy status to other drugs, medicaments and biological substances; Z88.6 Allergy status to analgesic agent; Z79.899 Other long term (current) drug therapy; Z79.01 Long term (current) use of anticoagulants
CPT/HCPCS: 36415; 70450; 72125; 80048; 84439; 84443; 85025; 87631; 96361; 96374; 96375; 99284; J1200; J2765

== ENCOUNTER → 2021-01-05 | Outpatient (CLI) | payer MEDICARE, MEDICAID ==
[~2021-01-05] MED LIST changes: +ACET-683 PO
[2021-01-05 17:03] LABS: INR 2.71; PROTHROMBIN TIME 29.4 SECONDS (12.5-14.3)
== END ==
LOC: M LAB 16:03
PROVIDERS: ATTEND Internal Medicine Hematology & Oncology
DX: Z51.81 Encounter for therapeutic drug level monitoring (principal); Z79.01 Long term (current) use of anticoagulants; I26.99 Other pulmonary embolism without acute cor pulmonale; M32.9 Systemic lupus erythematosus, unspecified

== ENCOUNTER → 2021-01-14 | Outpatient (CLI) | payer MEDICARE, MEDICAID ==
--- NOTE | 2021-01-14 10:46 | REPVR ---
PROCEDURE INFORMATION: Exam: CT Neck With Contrast Exam date and time: 01/14/2021 10:25 AM Age: 51 years old Clinical indication: Other: Recurrent sialoadenitis /labs 1st TECHNIQUE: Imaging protocol: Computed tomography images of the neck with contrast. Radiation optimization: All CT scans at this facility use at least one of these dose optimization techniques: automated exposure control; mA and/or kV adjustment per patient size (includes targeted exams where dose is matched to clinical indication); or iterative reconstruction. Contrast material: ISOVUE 370; Contrast volume: 75 ml; Contrast route: INTRAVENOUS (IV); COMPARISON: Thyroid, ST head+neck US 01/08/2019 3:27 PM FINDINGS: Paranasal sinuses: There are probable large mucous retention cysts within the maxillary sinuses bilaterally. Nasopharynx: Unremarkable. Oropharynx: Unremarkable. No significant tonsillar enlargement. Hypopharynx: Unremarkable. Larynx: Unremarkable. Normal epiglottis. Retropharyngeal space: Unremarkable. Submandibular/Parotid glands: There are bilateral submandibular sialoliths, right greater than left. Thyroid: Normal. No enlarged or calcified nodules. Lymph nodes: There are scattered multilevel cervical lymph nodes. There is no worrisome cervical lymphadenopathy. Trachea: Visualized trachea is unremarkable. Lungs: Unremarkable as visualized. Bones/joints: Unremarkable. No acute fracture. Soft tissues: Unremarkable. No significant soft tissue swelling. IMPRESSION: Bilateral submandibular sialoliths. Electronically signed by: Coral Latif On 01/14/2021 10:46:40 AM
[2021-01-14 11:03] LABS: INR 2.74; PROTHROMBIN TIME 29.6 SECONDS (12.5-14.3)
== END ==
LOC: M LAB 09:55
PROVIDERS: ATTEND Internal Medicine Hematology & Oncology
DX: I26.99 Other pulmonary embolism without acute cor pulmonale (principal); M32.9 Systemic lupus erythematosus, unspecified; Z79.01 Long term (current) use of anticoagulants; K11.5 Sialolithiasis; K11.22 Acute recurrent sialoadenitis
CPT/HCPCS: 36415; 70491; 85610; Q9967

== ENCOUNTER → 2021-01-14 | Outpatient (CLI) | payer MEDICARE, MEDICAID ==
[~2021-01-14] MED LIST changes: +ISOVUE-370 76% 100ML VIAL As Ordered ONE
== END ==
LOC: M RAD 09:57
PROVIDERS: ATTEND Otolaryngology
DX: K11.22 Acute recurrent sialoadenitis (principal)

== ENCOUNTER → 2021-01-26 | Outpatient (CLI) | payer MEDICARE, MEDICAID ==
[~2021-01-26] MED LIST changes: -ISOVUE-370 76% 100ML VIAL As Ordered ONE
[2021-01-26 17:15] LABS: INR 2.72; PROTHROMBIN TIME 29.5 SECONDS (12.5-14.3)
== END ==
LOC: M LAB 15:56
PROVIDERS: ATTEND Internal Medicine Hematology & Oncology
DX: I26.99 Other pulmonary embolism without acute cor pulmonale (principal); M32.9 Systemic lupus erythematosus, unspecified; Z79.01 Long term (current) use of anticoagulants

== ENCOUNTER → 2021-01-26 | Outpatient (CLI) | payer MEDICARE, MEDICAID ==
[2021-01-26 16:51] LABS: APPEARANCE, URINE HAZY (CLEAR); BACTERIA, URINE AUTO NEGATIVE (NEGATIVE); BILIRUBIN, URINE AUTO NEGATIVE (NEGATIVE); BLOOD, URINE BLOOD 1+ (NEGATIVE); COLOR, URINE YELLOW (YELLOW); GLUCOSE, URINE (UA) AUTO NEGATIVE (NEGATIVE); KETONE, URINE AUTO NEGATIVE (NEGATIVE); LEUKOCYTE ESTERASE, URINE AUTO NEGATIVE (NEGATIVE); NITRITE, URINE AUTO NEGATIVE (NEGATIVE); PROTEIN, URINE AUTO NEGATIVE (NEGATIVE); RBC, URINE AUTO 0 /HPF (0-3); SPECIFIC GRAVITY URINE AUTO 1.003 (1.002-1.035); SQUAMOUS EPITHELIAL CELL UR AU 0 /HPF (0-6); UROBILINOGEN, URINE AUTO 0.2 mg/dL (0.0-2.0); WBC, URINE AUTO 0 /HPF (0-3)
[2021-01-26 16:59] LABS: BASO % 0.4 % (0.0-1.0); EOS # 0.1 10^3/uL (0.0-0.5); EOS % 2.5 % (0.0-3.0); HEMATOCRIT 39.5 % (36.0-47.0); HEMOGLOBIN 12.3 g/dl (12.0-15.5); LYMPH # 0.7 10^3/uL (1.5-5.0); LYMPH % 13.7 % (24.0-44.0); MEAN CORPUSCULAR HEMOGLOBIN 24.9 pg (27.0-33.0); MEAN CORPUSCULAR HGB CONC 31.1 g/dl (32.0-36.5); MONO # 0.4 10^3/uL (0.0-0.8); MONO % 7.4 % (2.0-8.0); NEUTROPHILS # 3.6 10^3/uL (1.5-8.5); NEUTROPHILS % 75.4 % (36.0-66.0); PLATELET COUNT, AUTOMATED 154 10^3/uL (150-450); RED BLOOD COUNT 4.94 10^6/uL (4.00-5.40); WHITE BLOOD COUNT 4.7 10^3/uL (4.0-10.0)
[2021-01-26 17:06] LABS: TOTAL PROTEIN,RANDOM URINE < 5.0 MG/DL (0.0-12.0)
[2021-01-26 17:13] LABS: ALBUMIN 3.4 GM/DL (3.2-5.2); ALT/SGPT 25 U/L (12-78); BILIRUBIN,TOTAL 0.3 MG/DL (0.2-1.0); BLOOD UREA NITROGEN 12 MG/DL (7-18); C REACTIVE PROTEIN QUANTITATIV 0.36 MG/DL (0.00-0.30); CALCIUM LEVEL 8.8 MG/DL (8.5-10.1); CARBON DIOXIDE LEVEL 30 MEQ/L (21-32); CHLORIDE LEVEL 105 MEQ/L (98-107); COMPLEMENT C3 87 MG/DL (90-180); COMPLEMENT C4 16 MG/DL (10-40); CREATININE FOR GFR 0.83 MG/DL (0.55-1.30); GLOMERULAR FILTRATION RATE > 60.0 (>51); GLUCOSE, FASTING 102 MG/DL (70-100); LIPASE 133 U/L (73-393); POTASSIUM SERUM 3.6 MEQ/L (3.5-5.1); SODIUM LEVEL 140 MEQ/L (136-145); TOTAL PROTEIN 7.1 GM/DL (6.4-8.2)
[2021-01-26 17:22] LABS: ERYTHROCYTE SEDIMENTATION RATE 20 mm/hr (0-30)
== END ==
LOC: M LAB 15:58
PROVIDERS: ATTEND Internal Medicine
DX: M32.9 Systemic lupus erythematosus, unspecified (principal); R10.9 Unspecified abdominal pain

== ENCOUNTER → 2021-02-06 | Outpatient (CLI) | payer MEDICARE, MEDICAID ==
[~2021-02-06] MED LIST changes: +BISO1TAB18; +BISO1TAB18 PO; -BISO5TAB2; -BISO5TAB2 PO; -CEFD1CAP8 PO; +CEFD300C41 PO; -LISI10TA15; +LISI10TA24
== END ==
LOC: M SLEEP 20:00
PROVIDERS: ATTEND Physician Assistant
DX: G47.33 Obstructive sleep apnea (adult) (pediatric) (principal)

== ENCOUNTER → 2021-02-10 | Outpatient (CLI) | payer MEDICARE, MEDICAID ==
[2021-02-10 13:04] LABS: INR 2.87; PROTHROMBIN TIME 30.7 SECONDS (12.5-14.3)
== END ==
LOC: M LAB 11:53
PROVIDERS: ATTEND Internal Medicine Hematology & Oncology
DX: I26.99 Other pulmonary embolism without acute cor pulmonale (principal)

== ENCOUNTER → 2021-02-23 | Outpatient (CLI) | payer MEDICARE, MEDICAID ==
[~2021-02-23] MED LIST changes: -BISO1TAB18; -BISO1TAB18 PO; +BISO5TAB2; +BISO5TAB2 PO; +CEFD1CAP8 PO; -CEFD300C41 PO; +LISI10TA15; -LISI10TA24
[2021-02-23 14:32] LABS: INR 2.84; PROTHROMBIN TIME 30.5 SECONDS (12.5-14.3)
== END ==
LOC: M LAB 12:35
PROVIDERS: ATTEND Internal Medicine Hematology & Oncology
DX: I26.99 Other pulmonary embolism without acute cor pulmonale (principal); M32.9 Systemic lupus erythematosus, unspecified; Z79.01 Long term (current) use of anticoagulants

== ENCOUNTER → 2021-02-26 | Outpatient (CLI) | payer MEDICARE, MEDICAID ==
--- NOTE | 2021-02-26 14:10 | REP ---
INDICATION: BACKACHE AND ATYPICAL CHEST PAIN. COMPARISON: AP CHEST 09/08/2020 SHOWING A PORTION OF THE SHOULDER TECHNIQUE: Three views. FINDINGS: The AC joint shows slight widening but no elevation of the clavicle in relationship to the acromion. It is unchanged. No visible fracture of the clavicle, ribs, scapula or humeral head. No abnormal soft tissue calcifications about the glenohumeral joint. IMPRESSION: 1. There is no visible or displaced fracture, avulsion or subluxation. Slight widening of the AC joint is unchanged from the previous study chest on 09/08/2020 no elevation the clavicle relationship to the acromion. I am not aware of prior surgery under previous portable chest width of those AC joints with symmetric. <Electronically signed by Malick Matthews > 02/26/21 [id number]
--- NOTE | 2021-02-26 14:16 | REP ---
INDICATION: BACKACHE AND ATYPICAL CHEST PAIN. COMPARISON: Bone windows from CTA chest 09/08/2020 TECHNIQUE: Three views FINDINGS: AP view shows very gentle dextroconvex curve midthoracic spine centered at T6-7 similar to the coronal reconstruction CT images. The pedicles, spinous and transverse processes, posterior rib articulations and medial clavicles are without acute finding. Swimmer's view shows lower cervical spondylosis and the cervicothoracic junction aligns normally. Mid to lower thoracic spondylosis with endplate spurs and no compression deformity or destructive lesions seen. IMPRESSION: 1. Minor degenerative disc changes, age-appropriate and without compression deformity or destructive lesion. 2. Paraspinal lines intact. Very gentle dextroconvex curve midthoracic spine as seen on recent CT. Nothing acute. <Electronically signed by Malick Matthews > 02/26/21 [id number]
--- NOTE | 2021-02-26 14:20 | REP ---
INDICATION: BACKACHE AND ATYPICAL CHEST PAIN. COMPARISON: None. TECHNIQUE: Five views of the lumbar spine are provided. FINDINGS: Lumbar vertebral body heights are preserved. Alignment is normal. There is degenerative disc narrowing at L3-4 with a mild anterior osteophyte formation at the L3-4 and L4-5 disc levels. There is no evidence of spondylolysis or spondylolisthesis. Pedicles and posterior elements are intact. Facet hypertrophy is present bilaterally at L5-S1 and L4-5. No bony destructive lesion. Sacrum and SI joints are unremarkable. Psoas margins are symmetric. The visualized bowel gas pattern is normal. IMPRESSION: Degenerative spondylosis changes. No acute abnormality. <Electronically signed by Raghavendra Aguilar > 02/26/21 [id number]
== END ==
LOC: M LAB 13:23
PROVIDERS: ATTEND Physician Assistant
DX: M54.9 Dorsalgia, unspecified (principal); M25.511 Pain in right shoulder

== ENCOUNTER → 2021-03-10 | Outpatient (CLI) | payer MEDICARE, MEDICAID ==
[2021-03-10 12:34] LABS: INR 2.59; PROTHROMBIN TIME 28.1 SECONDS (12.7-14.5)
== END ==
LOC: M LAB 10:53
PROVIDERS: ATTEND Internal Medicine Hematology & Oncology
DX: Z51.81 Encounter for therapeutic drug level monitoring (principal); Z79.01 Long term (current) use of anticoagulants

== ENCOUNTER → 2021-03-23 | Outpatient (CLI) | payer MEDICARE, MEDICAID ==
[2021-03-23 14:31] LABS: INR 2.97; PROTHROMBIN TIME 31.2 SECONDS (12.7-14.5)
== END ==
LOC: M LAB 13:39
PROVIDERS: ATTEND Internal Medicine Hematology & Oncology
DX: Z51.81 Encounter for therapeutic drug level monitoring (principal); Z79.01 Long term (current) use of anticoagulants

== ENCOUNTER 2021-03-24 22:06 | Emergency (ER) | payer MEDICARE, MEDICAID ==
[~2021-03-24] VITALS: Ht 172.7 cm; Wt 160.5 kg
[2021-03-24 23:20] LABS: BASO % 0.2 % (0.0-1.0); EOS % 0.5 % (0.0-3.0); HEMATOCRIT 36.3 % (36.0-47.0); HEMOGLOBIN 11.7 g/dl (12.0-15.5); LYMPH # 0.8 10^3/uL (1.5-5.0); LYMPH % 13.7 % (24.0-44.0); MEAN CORPUSCULAR HGB CONC 32.2 g/dl (32.0-36.5); MEAN CORPUSCULAR VOLUME 77.6 fl (80.0-96.0); MONO # 0.3 10^3/uL (0.0-0.8); NEUTROPHILS # 4.4 10^3/uL (1.5-8.5); NEUTROPHILS % 79.9 % (36.0-66.0); PLATELET COUNT, AUTOMATED 176 10^3/uL (150-450); RED BLOOD COUNT 4.68 10^6/uL (4.00-5.40); WHITE BLOOD COUNT 5.6 10^3/uL (4.0-10.0)
[2021-03-24 23:43] LABS: INR 2.94
[2021-03-24 23:44] LABS: PARTIAL THROMBOPLASTIN TIME 41.3 SECONDS (25.9-37.0)
[2021-03-24] MEDS ORDERED: KETOROLAC 30 MG/ML 1ML VIAL IV ONE (23:50)
--- NOTE | 2021-03-24 23:55 | REPVR ---
PROCEDURE INFORMATION: Exam: XR Chest Exam date and time: 03/24/2021 11:20 PM Age: 51 years old Clinical indication: Pain; Other: Un specified; Additional info: Chest pain TECHNIQUE: Imaging protocol: XR of the chest. Views: 1 view. COMPARISON: [place] PORTABLE CHEST X-RAY 09/08/2020 7:52 AM FINDINGS: Lungs: Unremarkable. No consolidation. Pleural spaces: Unremarkable. No pleural effusion. No pneumothorax. Heart/Mediastinum: Unremarkable. No cardiomegaly. Bones/joints: Unremarkable. IMPRESSION: No acute findings. Electronically signed by: Olvin English On 03/24/2021 23:54:46 PM
[2021-03-24 23:58] LABS: BLOOD UREA NITROGEN 15 MG/DL (7-18); CALCIUM LEVEL 8.1 MG/DL (8.5-10.1); CARBON DIOXIDE LEVEL 26 MEQ/L (21-32); CHLORIDE LEVEL 110 MEQ/L (98-107); GLOMERULAR FILTRATION RATE > 60.0 (>51); GLUCOSE, FASTING 113 MG/DL (70-100); SODIUM LEVEL 142 MEQ/L (136-145)
[2021-03-25] MEDS ORDERED: ISOVUE-370 76% 100ML VIAL As Ordered ONE
--- NOTE | 2021-03-25 00:29 | REPVR ---
PROCEDURE INFORMATION: Exam: CTA Chest With Contrast Exam date and time: 03/24/2021 12:11 AM Age: 51 years old Clinical indication: Other: Chest pain, HX of pe TECHNIQUE: Imaging protocol: Computed tomographic angiography of the chest with contrast. 3D rendering (Not supervised by radiologist): MIP and/or 3D reconstructed images were created by the technologist. Radiation optimization: All CT scans at this facility use at least one of these dose optimization techniques: automated exposure control; mA and/or kV adjustment per patient size (includes targeted exams where dose is matched to clinical indication); or iterative reconstruction. Contrast material: ISOVUE 370; Contrast volume: 75 ml; Contrast route: INTRAVENOUS (IV); COMPARISON: CT ANGIO CHEST 09/08/2020 9:06 AM FINDINGS: Limitations: Suboptimal opacification of pulmonary arteries. Pulmonary arteries are less well opacified than pulmonary veins and aorta. Pulmonary arteries: No evidence of pulmonary artery emboli. Aorta: No evidence of thoracic aortic aneurysm or dissection. Lungs: There is minor dependent atelectasis. No consolidation. Pleural spaces: Unremarkable. No pneumothorax. No pleural effusion. Heart: Unremarkable. No cardiomegaly. No pericardial effusion. Lymph nodes: Unremarkable. No enlarged lymph nodes. Spleen: The spleen is incompletely included on the scan. It is at least mildly enlarged measuring 14.5 cm in length. Bones/joints: Unremarkable. No acute fracture. Soft tissues: Unremarkable. IMPRESSION: 1. No evidence of pulmonary artery emboli. 2. No acute findings Electronically signed by: Olvin English On 03/25/2021 00:28:26 AM
[2021-03-25 03:01] VITALS: BP 124/88
--- NOTE | 2021-03-26 18:39 | ECGEPIP ---
[facility] - ED Test Date: 2021-03-24 Pat Name: BROOKS PARKINSON Department: Room: - Gender: Female Attorney: WILL : 1970 Requested By: TOSHA Gallo Order Number: [id number] Reading MD: Juliana Cole Measurements Intervals [place] Rate: 77 P: 18 [place]: 168 QRS: -28 QRSD: 106 T: -12 QT: 390 QTc: 441 Interpretive Statements Normal sinus rhythm Minimal voltage criteria for LVH, may be normal variant ( Carlos product ) NSTTW abnormalities ivcd baseline artifact may affect interpretation increased rate 09/08/20 Electronically Signed on 03-26-2021 18:39:24 EDT by Juliana Cole
== END 2021-03-25 03:03 | disposition home or self-care (01) ==
LOC: M ED 22:06
DX: R07.89 Other chest pain (principal); M94.0 Chondrocostal junction syndrome [Tietze]; M32.9 Systemic lupus erythematosus, unspecified; M79.7 Fibromyalgia; E66.9 Obesity, unspecified; Z86.711 Personal history of pulmonary embolism; Z79.01 Long term (current) use of anticoagulants; Z79.899 Other long term (current) drug therapy; Z88.1 Allergy status to other antibiotic agents; Z88.5 Allergy status to narcotic agent; Z88.8 Allergy status to other drugs, medicaments and biological substances
CPT/HCPCS: 71045; 71275; 80048; 84484; 85025; 85610; 85730; 93005; 93041; 94760; 96374; 99284; J1885; Q9967

== ENCOUNTER → 2021-04-06 | Outpatient (CLI) | payer MEDICARE, MEDICAID ==
[2021-04-06 13:12] LABS: INR 3.69; PROTHROMBIN TIME 36.9 SECONDS (12.7-14.5)
== END ==
LOC: M LAB 12:37
PROVIDERS: ATTEND Internal Medicine Hematology & Oncology
DX: Z51.81 Encounter for therapeutic drug level monitoring (principal); Z79.01 Long term (current) use of anticoagulants

== ENCOUNTER → 2021-04-08 | Outpatient (CLI) | payer MEDICARE, MEDICAID ==
--- NOTE | 2021-04-08 14:40 | REP ---
INDICATION: LEFT CALF PAIN. COMPARISON: None. TECHNIQUE: Multiple ultrasonographic images of the deep venous structures of the left lower extremity were obtained from the inguinal ligament to the ankle. Venous compression techniques, color doppler imaging, and augmentation techniques were also obtained where appropriate. As per the ACR guidelines the anterior tibial vein can not be effectively evaluated. Only compression techniques in the calf on the peroneal and posterior tibial veins was attempted/performed. FINDINGS: There is no abnormal echogenic material seen within any of the visualized deep venous structures that would suggest acute thrombosis. Coaptation is unremarkable throughout. Doppler interrogation shows an expected response to respiratory variability and augmentation in the thigh. Compression techniques in the calf were unobtainable. The color flow images show what appears to be a normal vascular pattern throughout the thigh. In the posterior popliteal fossa a 5.9 x 0.7 x 2 cm size complex fluid collection was identified IMPRESSION: There is no ultrasonographic evidence of deep venous thrombosis involving any of the visualized deep venous structures of the left lower extremity as described above. Due to technical parameters calf vein DVT can not be ruled out. Lloyd's cyst as described above. <Electronically signed by Jose Mon > 04/08/21 [id number]
== END ==
LOC: M RAD 13:53
PROVIDERS: ATTEND Internal Medicine Hematology & Oncology
DX: M79.662 Pain in left lower leg (principal); Z79.01 Long term (current) use of anticoagulants; M32.9 Systemic lupus erythematosus, unspecified; Z86.711 Personal history of pulmonary embolism; M71.22 Synovial cyst of popliteal space [Baker], left knee

== ENCOUNTER → 2021-04-14 | Outpatient (CLI) | payer MEDICARE, MEDICAID ==
[2021-04-14 12:18] LABS: INR 3.21; PROTHROMBIN TIME 33.2 SECONDS (12.7-14.5)
== END ==
LOC: M LAB 11:26
PROVIDERS: ATTEND Internal Medicine Hematology & Oncology
DX: Z51.81 Encounter for therapeutic drug level monitoring (principal); Z79.01 Long term (current) use of anticoagulants

== ENCOUNTER → 2021-04-28 | Outpatient (CLI) | payer MEDICARE, MEDICAID ==
[2021-04-28 12:29] LABS: INR 2.87; PROTHROMBIN TIME 30.4 SECONDS (12.7-14.5)
== END ==
LOC: M LAB 11:43
PROVIDERS: ATTEND Internal Medicine Hematology & Oncology
DX: I26.99 Other pulmonary embolism without acute cor pulmonale (principal); Z79.01 Long term (current) use of anticoagulants; M32.9 Systemic lupus erythematosus, unspecified

== ENCOUNTER 2021-05-05 08:28 | Outpatient (CLI) | payer MEDICARE, MEDICAID ==
[~2021-05-05] VITALS: Ht 172.7 cm; Wt 161.8 kg
[~2021-05-05 08:28] MED LIST changes: +ALBUTEROL 90 MCG/ACT 8GM HFA INHALER INH PRN; +ALBUTEROL SULFATE 2.5 MG/0.5 ML INH NEB SOLN INH PRN; +EPINEPHrine INJ 1 MG/ML 1ML AMP IM PRN; +NS 1,000 ML IV SCH; +diphenhydrAMINE 50MG/ML VIAL (J1200) IV PRN; +methylPREDNISolone 125MG 2ML VIAL IV PRN
[2021-05-05] MEDS ORDERED: CASIRIVIMAB/IMDEVIMAB 1,200 MG in NS 250 ML IV ONE (10:00)
[2021-05-05] MEDS ORDERED: diphenhydrAMINE 25MG CAP PO ONE (10:00)
[2021-05-05 10:13] VITALS: BP 137/88
[2021-05-05 11:35] VITALS: BP 135/62
[2021-05-05 12:15] VITALS: BP 134/63
[2021-05-05 13:30] VITALS: BP 146/65
== END 2021-05-05 13:35 | disposition home or self-care (01) ==
LOC: M OPCLI4PR 08:28 → M MS4PR 08:39 → M OPCLI4PR 13:35
PROVIDERS: ATTEND Pediatrics
DX: U07.1 COVID-19 (principal); Z88.1 Allergy status to other antibiotic agents; Z88.8 Allergy status to other drugs, medicaments and biological substances
CPT/HCPCS: 96360; M0243

== ENCOUNTER → 2021-05-12 | Outpatient (CLI) | payer MEDICARE, MEDICAID ==
[~2021-05-12] MED LIST changes: -ALBUTEROL 90 MCG/ACT 8GM HFA INHALER INH PRN; -ALBUTEROL SULFATE 2.5 MG/0.5 ML INH NEB SOLN INH PRN; -EPINEPHrine INJ 1 MG/ML 1ML AMP IM PRN; -NS 1,000 ML IV SCH; -diphenhydrAMINE 50MG/ML VIAL (J1200) IV PRN; -methylPREDNISolone 125MG 2ML VIAL IV PRN
[2021-05-12 15:17] LABS: INR 0.99; PROTHROMBIN TIME 13.5 SECONDS (12.7-14.5)
== END ==
LOC: M LAB 13:42
PROVIDERS: ATTEND Internal Medicine Hematology & Oncology
DX: I26.99 Other pulmonary embolism without acute cor pulmonale (principal); M32.9 Systemic lupus erythematosus, unspecified; Z79.01 Long term (current) use of anticoagulants

== ENCOUNTER → 2021-05-12 | Outpatient (CLI) | payer MEDICARE, MEDICAID ==
[2021-05-12 15:39] LABS: HEMOGLOBIN A1c 5.6 %
== END ==
LOC: M LAB 13:39
PROVIDERS: ATTEND Pediatrics
DX: E66.01 Morbid (severe) obesity due to excess calories (principal)

== ENCOUNTER → 2021-05-17 | Outpatient (CLI) | payer MEDICARE, MEDICAID ==
[2021-05-17 13:28] LABS: INR 1.54; PROTHROMBIN TIME 18.9 SECONDS (12.7-14.5)
== END ==
LOC: M LAB 12:26
PROVIDERS: ATTEND Internal Medicine Hematology & Oncology
DX: Z51.81 Encounter for therapeutic drug level monitoring (principal); Z79.01 Long term (current) use of anticoagulants

== ENCOUNTER → 2021-05-20 | Outpatient (CLI) | payer MEDICARE, MEDICAID | LOC: M LAB 10:02 | PROVIDERS: ATTEND Internal Medicine Hematology & Oncology | DX: Z51.81 Encounter for therapeutic drug level monitoring (principal); Z79.01 Long term (current) use of anticoagulants; M32.9 Systemic lupus erythematosus, unspecified; Z86.711 Personal history of pulmonary embolism ==

== ENCOUNTER → 2021-05-25 | Outpatient (CLI) | payer MEDICARE, MEDICAID ==
[2021-05-25 11:11] LABS: INR 2.56; PROTHROMBIN TIME 27.9 SECONDS (12.7-14.5)
== END ==
LOC: M LAB 09:52
PROVIDERS: ATTEND Internal Medicine Hematology & Oncology
DX: Z51.81 Encounter for therapeutic drug level monitoring (principal); Z79.01 Long term (current) use of anticoagulants; Z86.711 Personal history of pulmonary embolism

== ENCOUNTER → 2021-05-31 | Outpatient (CLI) | payer MEDICARE, MEDICAID ==
[2021-05-31 17:49] LABS: INR 3.48; PROTHROMBIN TIME 35.2 SECONDS (12.7-14.5)
== END ==
LOC: M LAB 15:58
PROVIDERS: ATTEND Internal Medicine Hematology & Oncology
DX: I26.99 Other pulmonary embolism without acute cor pulmonale (principal); M32.9 Systemic lupus erythematosus, unspecified; Z79.01 Long term (current) use of anticoagulants

== ENCOUNTER → 2021-06-01 | Outpatient (CLI) | payer MEDICARE, MEDICAID ==
--- NOTE | 2021-06-01 14:23 | REP ---
INDICATION: LOW BACK PAIN, UNSPECIFIED COMPARISON: None. TECHNIQUE: Two views left hip. FINDINGS: There is no evidence of acute fracture, dislocation, or intrinsic bone disease.The hip joint appears normal. IMPRESSION: Negative left hip series. <Electronically signed by Garry Garcia > 06/01/21 [id number]
--- NOTE | 2021-06-01 15:50 | REP ---
INDICATION: LOW BACK PAIN, UNSPECIFIED. COMPARISON: 02/26/2021 TECHNIQUE: Five views FINDINGS: Vertebral body height and alignment is unchanged and again seen to be within normal limits. Mild posterior disc space narrowing is again seen at L4-5 and L5-S1 status quo. Hypertrophic degenerative facet joint changes are again seen particularly at L4-5 L5-S1 bilaterally status quo. There is no spondylolysis or spondylolisthesis. The pedicles are again seen to be intact bilaterally. IMPRESSION: Mild stable appearing chronic changes as described above. <Electronically signed by Jose Mon > 06/01/21 [id number]
== END ==
LOC: M RAD 12:20
PROVIDERS: ATTEND Pediatrics
DX: M54.50 Low back pain, unspecified (principal); R10.2 Pelvic and perineal pain; M51.37 Other intervertebral disc degeneration, lumbosacral region

== ENCOUNTER → 2021-06-03 | Outpatient (CLI) | payer MEDICARE, MEDICAID ==
[2021-06-03 12:01] LABS: INR 3.15; PROTHROMBIN TIME 32.6 SECONDS (12.7-14.5)
== END ==
LOC: M LAB 11:05
PROVIDERS: ATTEND Internal Medicine Hematology & Oncology
DX: Z51.81 Encounter for therapeutic drug level monitoring (principal); Z79.01 Long term (current) use of anticoagulants

== ENCOUNTER → 2021-06-08 | Outpatient (CLI) | payer MEDICARE, MEDICAID ==
[2021-06-08 14:35] LABS: INR 2.41; PROTHROMBIN TIME 26.7 SECONDS (12.7-14.5)
== END ==
LOC: M LAB 13:10
PROVIDERS: ATTEND Internal Medicine Hematology & Oncology
DX: Z51.81 Encounter for therapeutic drug level monitoring (principal); Z79.01 Long term (current) use of anticoagulants

== ENCOUNTER → 2021-06-15 | Outpatient (CLI) | payer MEDICARE, MEDICAID ==
[2021-06-15 11:11] LABS: INR 2.78; PROTHROMBIN TIME 29.7 SECONDS (12.7-14.5)
== END ==
LOC: M LAB 09:48
PROVIDERS: ATTEND Internal Medicine Hematology & Oncology
DX: Z51.81 Encounter for therapeutic drug level monitoring (principal); Z79.01 Long term (current) use of anticoagulants; Z86.711 Personal history of pulmonary embolism; M32.9 Systemic lupus erythematosus, unspecified

== ENCOUNTER → 2021-06-15 | Outpatient (CLI) | payer MEDICARE, MEDICAID ==
--- NOTE | 2021-06-16 09:18 | ECHO ---
ECHOCARDIOGRAM DATE OF PROCEDURE: 06/15/2021 Age: 51 Gender: Female Height: 67 inches Weight: 360 pounds Body Surface Area: 2.6 m2 PATIENT LOCATION: Outpatient. REFERRING PHYSICIAN: Shelley Gates M.D. INDICATION: Dyspnea. MEASUREMENTS: 2D Measurements: RV 4.2 cm LV 4.8 cm Septum 1.2 cm Posterior wall 1.2 cm Aortic root 3.6 cm LA 3.8 cm LVEF 65%. Doppler Measurements: AV 1.26 m/sec LVOT - 0.9 m/sec MV-E 67, A 49, EA ratio 1.4 Early mitral deceleration time 261 msec E prime medial 7.6, A prime medial 10.7, E prime lateral 10.9 Average E/E prime ratio 7.2/PCWP 10.9 mmHg PV 0.8 m/sec Pulmonary artery acceleration time 102 msec PASP 37 mmHg IVC 1.8 cm COMMENTS: Normal sinus rhythm without interventricular conduction disturbance Technically challenging study in light of the patient's body habitus but diagnostic useful information was still obtained. M-Mode and 2-dimensional echocardiogram was performed with pulse, continuous wave, color flow and tissue Doppler studies. Normal left ventricular size with borderline left ventricular hypertrophy and normal wall motion. Left atrium upper limits of normal in size with currently normal LV diastolic function and estimated mean left atrial pressure. Borderline right heart chamber enlargement with normal wall motion and mild pulmonary hypertension. Normal IVC size and collapse against an elevated central venous pressure at this time. Normal aortic dimensions. Normal appearing and functioning aortic valve. Mild mitral annular thickening but normal leaflet thickness and excursion with no functional valvular abnormality. Normal appearing tricuspid valve with a very mild tricuspid insufficiency. No apparent intracardiac mass or pericardial effusion.
== END ==
LOC: M CARPUL 09:43 → M LAB 09:43
PROVIDERS: ATTEND Pediatrics
DX: U07.1 COVID-19 (principal); I51.7 Cardiomegaly; I36.1 Nonrheumatic tricuspid (valve) insufficiency

== ENCOUNTER → 2021-06-22 | Outpatient (CLI) | payer MEDICARE, MEDICAID ==
[2021-06-22 13:09] LABS: INR 2.47; PROTHROMBIN TIME 27.1 SECONDS (12.7-14.5)
== END ==
LOC: M LAB 12:21
PROVIDERS: ATTEND Internal Medicine Hematology & Oncology
DX: Z51.81 Encounter for therapeutic drug level monitoring (principal); Z79.01 Long term (current) use of anticoagulants

== ENCOUNTER → 2021-06-29 | Outpatient (CLI) | payer MEDICARE, MEDICAID ==
[~2021-06-29] MED LIST changes: +BISO1TAB18; +BISO1TAB18 PO; -BISO5TAB2; -BISO5TAB2 PO; -CEFD1CAP8 PO; +CEFD300C41 PO; -LISI10TA15; +LISI10TA24
[2021-06-29 15:34] LABS: INR 2.49; PROTHROMBIN TIME 27.3 SECONDS (12.7-14.5)
== END ==
LOC: M LAB 14:45
PROVIDERS: ATTEND Internal Medicine Hematology & Oncology
DX: Z51.81 Encounter for therapeutic drug level monitoring (principal); Z79.01 Long term (current) use of anticoagulants

== ENCOUNTER → 2021-07-06 | Outpatient (CLI) | payer MEDICARE, MEDICAID ==
[~2021-07-06] MED LIST changes: -BISO1TAB18; -BISO1TAB18 PO; +BISO5TAB2; +BISO5TAB2 PO; +CEFD1CAP8 PO; -CEFD300C41 PO; +LISI10TA15; -LISI10TA24
[2021-07-06 13:54] LABS: INR 2.37; PROTHROMBIN TIME 26.3 SECONDS (12.7-14.5)
== END ==
LOC: M LAB 13:18
PROVIDERS: ATTEND Internal Medicine Hematology & Oncology
DX: I26.99 Other pulmonary embolism without acute cor pulmonale (principal); M32.9 Systemic lupus erythematosus, unspecified; Z79.01 Long term (current) use of anticoagulants

== ENCOUNTER → 2021-07-13 | Outpatient (CLI) | payer MEDICARE, MEDICAID ==
[~2021-07-13] MED LIST changes: +BISO1TAB18; +BISO1TAB18 PO; -BISO5TAB2; -BISO5TAB2 PO; -CEFD1CAP8 PO; +CEFD300C41 PO; -LISI10TA15; +LISI10TA24
[2021-07-13 14:54] LABS: INR 2.46
== END ==
LOC: M LAB 13:29
PROVIDERS: ATTEND Internal Medicine Hematology & Oncology
DX: Z51.81 Encounter for therapeutic drug level monitoring (principal); Z79.01 Long term (current) use of anticoagulants

== ENCOUNTER → 2021-07-20 | Outpatient (CLI) | payer MEDICARE, MEDICAID ==
[2021-07-20 13:04] LABS: INR 2.36; PROTHROMBIN TIME 26.2 SECONDS (12.7-14.5)
== END ==
LOC: M LAB 12:22
PROVIDERS: ATTEND Internal Medicine Hematology & Oncology
DX: Z51.81 Encounter for therapeutic drug level monitoring (principal); Z79.01 Long term (current) use of anticoagulants; I26.99 Other pulmonary embolism without acute cor pulmonale

== ENCOUNTER → 2021-07-29 | Outpatient (CLI) | payer MEDICARE, MEDICAID ==
[~2021-07-29] MED LIST changes: -BISO1TAB18; -BISO1TAB18 PO; +BISO5TAB2; +BISO5TAB2 PO; +CEFD1CAP8 PO; -CEFD300C41 PO; +LISI10TA15; -LISI10TA24
[2021-07-29 16:07] LABS: INR 2.11
== END ==
LOC: M LAB 14:23
PROVIDERS: ATTEND Internal Medicine Hematology & Oncology
DX: I26.99 Other pulmonary embolism without acute cor pulmonale (principal); M32.9 Systemic lupus erythematosus, unspecified; Z79.01 Long term (current) use of anticoagulants

== ENCOUNTER → 2021-08-08 | Outpatient (CLI) | payer MEDICARE, MEDICAID ==
[~2021-08-08] MED LIST changes: +BISO1TAB18; +BISO1TAB18 PO; -BISO5TAB2; -BISO5TAB2 PO; -CEFD1CAP8 PO; +CEFD300C41 PO; -LISI10TA15; +LISI10TA24
[2021-08-08 12:26] LABS: INR 2.07; PROTHROMBIN TIME 23.7 SECONDS (12.7-14.5)
== END ==
LOC: M LAB 10:35
PROVIDERS: ATTEND Internal Medicine Hematology & Oncology
DX: Z51.81 Encounter for therapeutic drug level monitoring (principal); Z79.01 Long term (current) use of anticoagulants

== ENCOUNTER → 2021-09-07 | Outpatient (CLI) | payer MEDICARE, MEDICAID ==
[2021-09-08 11:07] LABS: ALBUMIN 3.68 GM/DL (3.29-5.55); ALBUMIN % 52.6 % (55.8-66.1); ALPHA-1-GLOBULINS 0.35 GM/DL (0.17-0.41); ALPHA-2-GLOBULINS 0.67 GM/DL (0.42-0.99); ALPHA-2-GLOBULINS % 9.5 % (7.1-11.8); BETA-1-GLOBULINS 0.53 GM/DL (0.28-0.60); BETA-1-GLOBULINS % 7.5 % (4.7-7.2); BETA-2-GLOBULINS 0.34 GM/DL (0.19-0.55); BETA-2-GLOBULINS % 4.8 % (3.2-6.5); GAMMA GLOBULINS 1.44 GM/DL (0.65-1.58)
[2021-09-08 11:08] LABS: GAMMA GLOBULIN % 20.6 % (11.1-18.8)
[2021-09-08 17:09] LABS: FREE KAPPA LIGHT CHAINS SERUM 47.8 mg/L (3.3-19.4); FREE LAMBDA LIGHT CHAINS SERUM 40.1 mg/L (5.7-26.3); KAPPA/LAMBDA RATIO SERUM 1.19 (0.26-1.65)
== END ==
LOC: M LAB 12:03
PROVIDERS: ATTEND Internal Medicine
DX: R89.9 Unspecified abnormal finding in specimens from other organs, systems and tissues (principal)

== ENCOUNTER → 2021-09-07 | Outpatient (CLI) | payer MEDICARE, MEDICAID ==
[2021-09-07 13:33] LABS: INR 1.4; PROTHROMBIN TIME 17.6 SECONDS (12.7-14.5)
== END ==
LOC: M LAB 12:08
PROVIDERS: ATTEND Internal Medicine Hematology & Oncology
DX: Z51.81 Encounter for therapeutic drug level monitoring (principal); Z79.01 Long term (current) use of anticoagulants

== ENCOUNTER → 2021-09-11 | Outpatient (CLI) | payer MEDICARE, MEDICAID ==
[2021-09-11 11:44] LABS: INR 1.97; PROTHROMBIN TIME 22.8 SECONDS (12.7-14.5)
== END ==
LOC: M LAB 10:53
PROVIDERS: ATTEND Internal Medicine Hematology & Oncology
DX: M32.9 Systemic lupus erythematosus, unspecified (principal); I26.99 Other pulmonary embolism without acute cor pulmonale; Z79.01 Long term (current) use of anticoagulants

== ENCOUNTER → 2021-09-17 | Outpatient (CLI) | payer MEDICARE, MEDICAID ==
[2021-09-17 17:37] LABS: INR 2.14; PROTHROMBIN TIME 24.3 SECONDS (12.7-14.5)
== END ==
LOC: M LAB 16:33
PROVIDERS: ATTEND Internal Medicine Hematology & Oncology
DX: I26.99 Other pulmonary embolism without acute cor pulmonale (principal); M32.9 Systemic lupus erythematosus, unspecified; Z79.01 Long term (current) use of anticoagulants

== ENCOUNTER → 2021-09-30 | Outpatient (CLI) | payer MEDICARE, MEDICAID ==
[~2021-09-30] MED LIST changes: -D31000TA2; +VITA100093
[2021-09-30 15:07] LABS: INR 2.42; PROTHROMBIN TIME 26.7 SECONDS (12.7-14.5)
== END ==
LOC: M LAB 13:42
PROVIDERS: ATTEND Internal Medicine Hematology & Oncology
DX: I26.99 Other pulmonary embolism without acute cor pulmonale (principal); M32.9 Systemic lupus erythematosus, unspecified; Z79.01 Long term (current) use of anticoagulants

== ENCOUNTER → 2021-10-14 | Outpatient (CLI) | payer MEDICARE, MEDICAID ==
[2021-10-14 15:45] LABS: INR 2.87; PROTHROMBIN TIME 30.4 SECONDS (12.7-14.5)
== END ==
LOC: M LAB 14:30
PROVIDERS: ATTEND Internal Medicine Hematology & Oncology
DX: I26.99 Other pulmonary embolism without acute cor pulmonale (principal); M32.9 Systemic lupus erythematosus, unspecified; Z79.01 Long term (current) use of anticoagulants

== ENCOUNTER → 2021-10-19 | Outpatient (REF) | LOC: M LAB 14:09 | PROVIDERS: ATTEND Nurse Practitioner Adult Health | DX: Z02.1 Encounter for pre-employment examination (principal) ==

== ENCOUNTER → 2021-10-26 | Outpatient (CLI) | payer MEDICARE, MEDICAID ==
[2021-10-26 18:33] LABS: INR 2.42; PROTHROMBIN TIME 26.7 SECONDS (12.7-14.5)
== END ==
LOC: M LAB 16:09
PROVIDERS: ATTEND Internal Medicine Hematology & Oncology
DX: Z79.01 Long term (current) use of anticoagulants (principal); I26.99 Other pulmonary embolism without acute cor pulmonale; M32.9 Systemic lupus erythematosus, unspecified

== ENCOUNTER → 2021-11-04 | Outpatient (CLI) | payer MEDICARE, MEDICAID ==
[2021-11-04 14:44] LABS: INR 2.79; PROTHROMBIN TIME 29.8 SECONDS (12.7-14.5)
== END ==
LOC: M LAB 13:46
PROVIDERS: ATTEND Internal Medicine Hematology & Oncology
DX: I26.99 Other pulmonary embolism without acute cor pulmonale (principal); M32.9 Systemic lupus erythematosus, unspecified; Z79.01 Long term (current) use of anticoagulants

== ENCOUNTER → 2021-11-17 | Outpatient (CLI) | payer MEDICARE, MEDICAID ==
[2021-11-17 17:52] LABS: INR 3.46; PROTHROMBIN TIME 35.1 SECONDS (12.7-14.5)
== END ==
LOC: M LAB 15:51
PROVIDERS: ATTEND Internal Medicine Hematology & Oncology
DX: I26.99 Other pulmonary embolism without acute cor pulmonale (principal); M32.9 Systemic lupus erythematosus, unspecified; Z79.01 Long term (current) use of anticoagulants

== ENCOUNTER 2021-11-25 15:22 | Outpatient (RCR) | payer MEDICARE, MEDICAID | END 2021-11-28 | LOC: M PT 15:22 | PROVIDERS: ATTEND Internal Medicine | DX: M67.8 Other specified disorders of synovium and tendon (principal) ==

== ENCOUNTER → 2021-11-27 | Outpatient (REF) | LOC: M LABSMTC 09:30 | PROVIDERS: ATTEND Pediatrics | DX: Z11.52 Encounter for screening for COVID-19 (principal); Z20.822 Contact with and (suspected) exposure to COVID-19 ==

== ENCOUNTER → 2021-12-01 | Outpatient (CLI) | payer MEDICARE, MEDICAID ==
[2021-12-01 16:26] LABS: INR 2.42; PROTHROMBIN TIME 26.7 SECONDS (12.7-14.5)
== END ==
LOC: M LAB 14:51
PROVIDERS: ATTEND Internal Medicine Hematology & Oncology
DX: Z79.01 Long term (current) use of anticoagulants (principal)

== ENCOUNTER → 2021-12-07 | Outpatient (REF) | LOC: M LABSMTC 11:07 | PROVIDERS: ATTEND Family Medicine | DX: Z11.52 Encounter for screening for COVID-19 (principal) ==

== ENCOUNTER → 2021-12-09 | Outpatient (CLI) | payer MEDICARE, MEDICAID ==
[2021-12-09 16:58] LABS: INR 2.17; PROTHROMBIN TIME 24.6 SECONDS (12.7-14.5)
== END ==
LOC: M LAB 15:40
PROVIDERS: ATTEND Internal Medicine Hematology & Oncology
DX: M32.9 Systemic lupus erythematosus, unspecified (principal); Z79.01 Long term (current) use of anticoagulants

== ENCOUNTER → 2021-12-14 | Outpatient (CLI) | payer MEDICARE, MEDICAID ==
[2021-12-14 15:02] LABS: INR 2.31; PROTHROMBIN TIME 25.8 SECONDS (12.7-14.5)
== END ==
LOC: M LAB 13:42
PROVIDERS: ATTEND Internal Medicine Hematology & Oncology
DX: I26.99 Other pulmonary embolism without acute cor pulmonale (principal); Z79.01 Long term (current) use of anticoagulants; M32.9 Systemic lupus erythematosus, unspecified

== ENCOUNTER → 2021-12-21 | Outpatient (CLI) | payer MEDICARE, MEDICAID ==
[2021-12-21 13:58] LABS: INR 2.47; PROTHROMBIN TIME 27.1 SECONDS (12.7-14.5)
== END ==
LOC: M LAB 12:22
PROVIDERS: ATTEND Internal Medicine Hematology & Oncology
DX: M32.9 Systemic lupus erythematosus, unspecified (principal); Z79.01 Long term (current) use of anticoagulants

== ENCOUNTER → 2021-12-28 | Outpatient (CLI) | payer MEDICARE, MEDICAID ==
[2021-12-28 12:25] LABS: BLOOD UREA NITROGEN 14 MG/DL (7-18); CARBON DIOXIDE LEVEL 31 MEQ/L (21-32); CHLORIDE LEVEL 109 MEQ/L (98-107); CHOLESTEROL LEVEL 170 MG/DL (<200); CHOLESTEROL RISK RATIO 3.541 (<5); CREATININE FOR GFR 0.98 MG/DL (0.55-1.30); GLOMERULAR FILTRATION RATE > 60.0 (>51); GLUCOSE, FASTING 96 MG/DL (70-100); HDL CHOLESTEROL 48 MG/DL (>40); LDL CHOLESTEROL 103 MG/DL (<100); NON-HDL-C 122 MG/DL; SODIUM LEVEL 145 MEQ/L (136-145); TRIGLYCERIDES LEVEL 96 MG/DL (<150)
== END ==
LOC: M LAB 11:23
PROVIDERS: ATTEND Physician Assistant
DX: E03.9 Hypothyroidism, unspecified (principal); Z79.01 Long term (current) use of anticoagulants

== ENCOUNTER → 2021-12-28 | Outpatient (CLI) | payer MEDICARE, MEDICAID ==
[2021-12-28 12:03] LABS: INR 2.47; PROTHROMBIN TIME 27.1 SECONDS (12.7-14.5)
== END ==
LOC: M LAB 11:17
PROVIDERS: ATTEND Internal Medicine Hematology & Oncology
DX: Z79.01 Long term (current) use of anticoagulants (principal)

== ENCOUNTER → 2021-12-29 | Outpatient (RCR) | payer MEDICARE, MEDICAID | LOC: M PT 12-02 11:59 | PROVIDERS: ATTEND Internal Medicine | DX: M67.8 Other specified disorders of synovium and tendon (principal) ==

== ENCOUNTER → 2022-01-05 | Outpatient (CLI) | payer MEDICARE, MEDICAID ==
[2022-01-05 15:15] LABS: INR 2.42; PROTHROMBIN TIME 26.7 SECONDS (12.7-14.5)
== END ==
LOC: M LAB 14:13
PROVIDERS: ATTEND Internal Medicine Hematology & Oncology
DX: Z51.81 Encounter for therapeutic drug level monitoring (principal); Z79.01 Long term (current) use of anticoagulants

== ENCOUNTER 2022-01-07 12:23 | Outpatient (RCR) | payer MEDICARE, MEDICAID | END 2022-01-28 | LOC: M PT 12:23 | PROVIDERS: ATTEND Internal Medicine | DX: M67.8 Other specified disorders of synovium and tendon (principal) ==

== ENCOUNTER → 2022-01-19 | Outpatient (CLI) | payer MEDICARE, MEDICAID ==
[2022-01-19 14:38] LABS: INR 2.16; PROTHROMBIN TIME 24.5 SECONDS (12.7-14.5)
== END ==
LOC: M LAB 13:30
PROVIDERS: ATTEND Internal Medicine Hematology & Oncology
DX: Z51.81 Encounter for therapeutic drug level monitoring (principal); Z79.01 Long term (current) use of anticoagulants

== ENCOUNTER → 2022-01-26 | Outpatient (CLI) | payer MEDICARE, MEDICAID ==
[2022-01-26 11:56] LABS: INR 2.08; PROTHROMBIN TIME 23.8 SECONDS (12.7-14.5)
== END ==
LOC: M LAB 11:24
PROVIDERS: ATTEND Internal Medicine Hematology & Oncology
DX: Z51.81 Encounter for therapeutic drug level monitoring (principal); Z79.01 Long term (current) use of anticoagulants

== ENCOUNTER 2022-01-30 02:33 | Emergency (ER) | payer MEDICARE, MEDICAID ==
[~2022-01-30] VITALS: Ht 172.7 cm; Wt 159.0 kg
[2022-01-30 06:30] LABS: BASO % 0.2 % (0.0-1.0); EOS # 0.1 10^3/uL (0.0-0.5); EOS % 2.5 % (0.0-3.0); HEMATOCRIT 36.4 % (36.0-47.0); HEMOGLOBIN 11.2 g/dl (12.0-15.5); LYMPH # 0.7 10^3/uL (1.5-5.0); LYMPH % 12.2 % (24.0-44.0); MEAN CORPUSCULAR HEMOGLOBIN 22.8 pg (27.0-33.0); MEAN CORPUSCULAR HGB CONC 30.8 g/dl (32.0-36.5); MONO # 0.4 10^3/uL (0.0-0.8); NEUTROPHILS # 4.3 10^3/uL (1.5-8.5); NEUTROPHILS % 77.6 % (36.0-66.0); PLATELET COUNT, AUTOMATED 162 10^3/uL (150-450); RED BLOOD COUNT 4.92 10^6/uL (4.00-5.40); WHITE BLOOD COUNT 5.6 10^3/uL (4.0-10.0)
[2022-01-30 06:56] LABS: BLOOD UREA NITROGEN 14 MG/DL (7-18); CALCIUM LEVEL 8.7 MG/DL (8.5-10.1); CARBON DIOXIDE LEVEL 26 MEQ/L (21-32); CHLORIDE LEVEL 107 MEQ/L (98-107); CREATININE FOR GFR 0.92 MG/DL (0.55-1.30); GLOMERULAR FILTRATION RATE > 60.0 (>51); GLUCOSE, FASTING 98 MG/DL (70-100); NT-PRO BNP 63 PG/ML (<125); POTASSIUM SERUM 3.8 MEQ/L (3.5-5.1); SODIUM LEVEL 142 MEQ/L (136-145)
[2022-01-30] MEDS ORDERED: ISOVUE-370 76% 100ML VIAL As Ordered ONE (06:56)
[2022-01-30 06:58] LABS: CK-MB VALUE MASS < 1.0 NG/ML (<3.6); CPK CREATINE PHOSPHOKINASE 62 U/L (26-192); MB/CK RELATIVE INDEX 1.61 (< OR =4)
[2022-01-30] MEDS ORDERED: GI COCKTAIL 50ML BTL(HYOSCYAMINE/MAALOX/LIDOCAINE VISCOUS)(1:3:1) PO ONE (07:00)
[2022-01-30 07:11] LABS: ALBUMIN 3.5 GM/DL (3.2-5.2); ALT/SGPT 24 U/L (12-78); BILIRUBIN,DIRECT 0.1 MG/DL (0.0-0.2); BILIRUBIN,TOTAL 0.4 MG/DL (0.2-1.0); LIPASE 136 U/L (73-393); TOTAL PROTEIN 7.3 GM/DL (6.4-8.2)
[2022-01-30 07:17] LABS: INR 1.89; PROTHROMBIN TIME 22.1 SECONDS (12.7-14.5)
[2022-01-30] MEDS ORDERED: NS 1,000 ML IV ONE (07:45)
[2022-01-30] MEDS ORDERED: ACETAMINOPHEN 325 MG TAB PO ONE (07:45)
[2022-01-30] MEDS ORDERED: BENZ200C70 PO (09:08)
[2022-01-30] MEDS ORDERED: MUCI600T31 PO (09:08)
[2022-01-30] MEDS ORDERED: LEVO750T13 PO (09:08)
[2022-01-30] MEDS ORDERED: LevoFLOXacin 750 MG TABLET PO ONE (09:15)
[2022-01-30 09:28] LABS: CK-MB VALUE MASS < 1.0 NG/ML (<3.6); CPK CREATINE PHOSPHOKINASE 64 U/L (26-192); MB/CK RELATIVE INDEX 1.56 (< OR =4)
[2022-01-30 09:37] VITALS: BP 156/89
== END 2022-01-30 09:45 | disposition home or self-care (01) ==
LOC: M ED 02:33
DX: J18.1 Lobar pneumonia, unspecified organism (principal); I10 Essential (primary) hypertension; G47.33 Obstructive sleep apnea (adult) (pediatric); G43.909 Migraine, unspecified, not intractable, without status migrainosus; Z86.711 Personal history of pulmonary embolism; K21.9 Gastro-esophageal reflux disease without esophagitis; E03.9 Hypothyroidism, unspecified; M32.9 Systemic lupus erythematosus, unspecified; Z79.890 Hormone replacement therapy; Z79.01 Long term (current) use of anticoagulants; Z79.899 Other long term (current) drug therapy; Z88.1 Allergy status to other antibiotic agents; Z88.5 Allergy status to narcotic agent; Z88.8 Allergy status to other drugs, medicaments and biological substances
CPT/HCPCS: 71046; 71275; 80048; 80076; 82550; 82553; 83690; 83880; 84484; 85025; 85610; 93005; 93041; 94760; 99285; Q9967

== ENCOUNTER → 2022-02-05 | Outpatient (CLI) | payer MEDICARE, MEDICAID ==
[~2022-02-05] MED LIST changes: +BENZ200C70 PO; +LEVO750T13 PO; +MUCI600T31 PO
[2022-02-05 17:34] LABS: INR 2.37; PROTHROMBIN TIME 26.3 SECONDS (12.7-14.5)
== END ==
LOC: M LAB 16:06
PROVIDERS: ATTEND Internal Medicine Hematology & Oncology
DX: I26.99 Other pulmonary embolism without acute cor pulmonale (principal); M32.9 Systemic lupus erythematosus, unspecified; Z79.01 Long term (current) use of anticoagulants

== ENCOUNTER → 2022-02-13 | Outpatient (CLI) | payer MEDICARE, MEDICAID ==
[2022-02-13 10:33] LABS: INR 2.84; PROTHROMBIN TIME 30.2 SECONDS (12.7-14.5)
== END ==
LOC: M LAB 09:41
PROVIDERS: ATTEND Internal Medicine Hematology & Oncology
DX: Z51.81 Encounter for therapeutic drug level monitoring (principal); Z79.01 Long term (current) use of anticoagulants

== ENCOUNTER → 2022-02-18 | Outpatient (CLI) | payer MEDICARE, MEDICAID ==
[2022-02-18 17:36] LABS: INR 2.68; PROTHROMBIN TIME 28.9 SECONDS (12.7-14.5)
== END ==
LOC: M LAB 16:02
PROVIDERS: ATTEND Internal Medicine Hematology & Oncology
DX: Z51.81 Encounter for therapeutic drug level monitoring (principal); Z79.01 Long term (current) use of anticoagulants

== ENCOUNTER → 2022-03-01 | Outpatient (CLI) | payer MEDICARE, MEDICAID ==
[~2022-03-01] MED LIST changes: +LEVO1TAB40 PO; -LEVO750T13 PO
[2022-03-01 14:41] LABS: INR 2.52; PROTHROMBIN TIME 27.5 SECONDS (12.7-14.5)
== END ==
LOC: M LAB 13:34
PROVIDERS: ATTEND Internal Medicine Hematology & Oncology
DX: I26.99 Other pulmonary embolism without acute cor pulmonale (principal); M32.9 Systemic lupus erythematosus, unspecified; Z79.01 Long term (current) use of anticoagulants

== ENCOUNTER → 2022-03-01 | Outpatient (CLI) | payer MEDICARE, MEDICAID ==
[2022-03-01 14:21] LABS: BASO % 0.3 % (0.0-1.0); EOS # 0.2 10^3/uL (0.0-0.5); EOS % 2.2 % (0.0-3.0); HEMATOCRIT 38.5 % (36.0-47.0); HEMOGLOBIN 11.7 g/dl (12.0-15.5); LYMPH # 1.2 10^3/uL (1.5-5.0); LYMPH % 17.4 % (24.0-44.0); MEAN CORPUSCULAR HEMOGLOBIN 22.5 pg (27.0-33.0); MEAN CORPUSCULAR HGB CONC 30.4 g/dl (32.0-36.5); MEAN CORPUSCULAR VOLUME 74.2 fl (80.0-96.0); MONO # 0.4 10^3/uL (0.0-0.8); MONO % 5.7 % (2.0-8.0); NEUTROPHILS # 5.3 10^3/uL (1.5-8.5); NEUTROPHILS % 74.3 % (36.0-66.0); PLATELET COUNT, AUTOMATED 173 10^3/uL (150-450); RED BLOOD COUNT 5.19 10^6/uL (4.00-5.40); WHITE BLOOD COUNT 7.1 10^3/uL (4.0-10.0)
== END ==
LOC: M LAB 13:39
PROVIDERS: ATTEND Internal Medicine
DX: I26.99 Other pulmonary embolism without acute cor pulmonale (principal); M32.9 Systemic lupus erythematosus, unspecified; Z79.01 Long term (current) use of anticoagulants; Z79.899 Other long term (current) drug therapy

== ENCOUNTER → 2022-03-09 | Outpatient (CLI) | payer MEDICARE, MEDICAID ==
[2022-03-09 16:26] LABS: INR 2.46
== END ==
LOC: M LAB 15:35
PROVIDERS: ATTEND Internal Medicine Hematology & Oncology
DX: I26.99 Other pulmonary embolism without acute cor pulmonale (principal); M32.9 Systemic lupus erythematosus, unspecified; Z79.01 Long term (current) use of anticoagulants

== ENCOUNTER → 2022-04-06 | Outpatient (CLI) | payer MEDICARE, MEDICAID ==
[2022-04-06 16:49] LABS: INR 3.14; PROTHROMBIN TIME 32.6 SECONDS (12.7-14.5)
== END ==
LOC: M LAB 15:41
PROVIDERS: ATTEND Internal Medicine Hematology & Oncology
DX: I26.99 Other pulmonary embolism without acute cor pulmonale (principal); M32.9 Systemic lupus erythematosus, unspecified; Z79.01 Long term (current) use of anticoagulants

== ENCOUNTER → 2022-04-13 | Outpatient (CLI) | payer MEDICARE, MEDICAID ==
[2022-04-13 17:38] LABS: INR 2.44; PROTHROMBIN TIME 26.9 SECONDS (12.7-14.5)
== END ==
LOC: M LAB 15:52
PROVIDERS: ATTEND Internal Medicine Hematology & Oncology
DX: Z79.01 Long term (current) use of anticoagulants (principal); I26.99 Other pulmonary embolism without acute cor pulmonale; M32.9 Systemic lupus erythematosus, unspecified

== ENCOUNTER → 2022-04-29 | Outpatient (CLI) | payer MEDICARE, MEDICAID ==
[2022-04-29 14:51] LABS: INR 2.6; PROTHROMBIN TIME 28.2 SECONDS (12.7-14.5)
== END ==
LOC: M RAD 11:52
PROVIDERS: ATTEND Physician Assistant
DX: R10.9 Unspecified abdominal pain (principal)
CPT/HCPCS: 36415; 78264; 85610; A9541

== ENCOUNTER → 2022-05-11 | Outpatient (CLI) | payer MEDICARE, MEDICAID ==
[2022-05-11 17:10] LABS: INR 2.22
== END ==
LOC: M LAB 15:39
PROVIDERS: ATTEND Internal Medicine Hematology & Oncology
DX: M32.9 Systemic lupus erythematosus, unspecified (principal); I26.99 Other pulmonary embolism without acute cor pulmonale; Z79.01 Long term (current) use of anticoagulants

== ENCOUNTER → 2022-05-14 | Outpatient (CLI) | payer MEDICARE, MEDICAID ==
[~2022-05-14] MED LIST changes: +OMEGA-3 1000MG CAPSULE ONE
== END ==
LOC: M PLAIMG 11:06
PROVIDERS: ATTEND Physician Assistant
DX: M79.605 Pain in left leg (principal); M25.562 Pain in left knee; M25.462 Effusion, left knee; M71.22 Synovial cyst of popliteal space [Baker], left knee

== ENCOUNTER → 2022-05-14 | Outpatient (CLI) | payer MEDICARE, MEDICAID ==
[~2022-05-14] MED LIST changes: -OMEGA-3 1000MG CAPSULE ONE
== END ==
LOC: M WHC 12:41
PROVIDERS: ATTEND Physician Assistant
DX: R22.42 Localized swelling, mass and lump, left lower limb (principal); Z53.9 Procedure and treatment not carried out, unspecified reason

== ENCOUNTER → 2022-05-18 | Outpatient (CLI) | payer MEDICARE, MEDICAID | LOC: M RAD 09:22 | PROVIDERS: ATTEND Physician Assistant | DX: M79.605 Pain in left leg (principal); R22.42 Localized swelling, mass and lump, left lower limb; M25.562 Pain in left knee; M71.22 Synovial cyst of popliteal space [Baker], left knee; I87.2 Venous insufficiency (chronic) (peripheral) ==

== ENCOUNTER → 2022-08-21 | Outpatient (CLI) | payer MEDICARE, MEDICAID | LOC: M RAD 11:17 | PROVIDERS: ATTEND Physician Assistant Medical | DX: R19.4 Change in bowel habit (principal); Z90.49 Acquired absence of other specified parts of digestive tract ==

== ENCOUNTER → 2022-08-25 | Outpatient (CLI) | payer MEDICARE, MEDICAID ==
[~2022-08-25] MED LIST changes: -BISO1TAB18; -CALC250T; +CALC250T PO; -FAMO40TA3; +FLUT50SP17; -FLUTISP; +HYDR-4571 PO; -MAGN200T; +MAGN200T PO; +ONDA4TAB6 PO; +PLAQ200T4 PO; -PRED25TA; +PRED25TA PO; -VITA100093; +VITA100093 PO
== END ==
LOC: M PLALAB 14:26
PROVIDERS: ATTEND Specialist
DX: Z12.4 Encounter for screening for malignant neoplasm of cervix (principal); R87.610 Atypical squamous cells of undetermined significance on cytologic smear of cervix (ASC-US)

== ENCOUNTER → 2022-08-25 | Outpatient (REF) | payer MEDICARE, MEDICAID ==
[~2022-08-25] MED LIST changes: +BISO1TAB18; +CALC250T; -CALC250T PO; +FAMO40TA3; -FLUT50SP17; +FLUTISP; -HYDR-4571 PO; +MAGN200T; -MAGN200T PO; -ONDA4TAB6 PO; -PLAQ200T4 PO; +PRED25TA; -PRED25TA PO; +VITA100093; -VITA100093 PO
== END ==
LOC: M PLALAB 14:15
PROVIDERS: ATTEND Specialist
DX: R87.610 Atypical squamous cells of undetermined significance on cytologic smear of cervix (ASC-US) (principal)

== ENCOUNTER → 2022-08-31 | Outpatient (REF) | payer MEDICARE, MEDICAID | LOC: M LAB REF 16:33 | PROVIDERS: ATTEND Physician Assistant | DX: N30.01 Acute cystitis with hematuria (principal) ==

== ENCOUNTER → 2022-09-15 | Outpatient (REF) | payer MEDICARE, MEDICAID | LOC: M LAB REF 15:16 | PROVIDERS: ATTEND Physician Assistant Medical | DX: R19.7 Diarrhea, unspecified (principal) ==

== ENCOUNTER 2022-09-26 21:05 | Emergency (ER) | payer MEDICARE, MEDICAID ==
[~2022-09-26] VITALS: Ht 172.7 cm; Wt 163.3 kg
[2022-09-26] MEDS ORDERED: WARF-22 PO (21:20)
[2022-09-26] MEDS ORDERED: GI COCKTAIL 50ML BTL(HYOSCYAMINE/MAALOX/LIDOCAINE VISCOUS)(1:3:1) PO ONE (23:40)
[2022-09-26] MEDS ORDERED: NS 1,000 ML IV ONE (23:40)
[2022-09-27 01:05] LABS: BASO % 0.5 % (0.0-1.0); EOS # 0.1 10^3/uL (0.0-0.5); EOS % 1.3 % (0.0-3.0); HEMATOCRIT 39.4 % (36.0-47.0); HEMOGLOBIN 11.9 g/dl (12.0-15.5); LYMPH # 0.9 10^3/uL (1.5-5.0); LYMPH % 15.8 % (24.0-44.0); MEAN CORPUSCULAR HEMOGLOBIN 22.7 pg (27.0-33.0); MEAN CORPUSCULAR HGB CONC 30.2 g/dl (32.0-36.5); MEAN CORPUSCULAR VOLUME 75.2 fl (80.0-96.0); MONO # 0.3 10^3/uL (0.0-0.8); MONO % 5.7 % (2.0-8.0); NEUTROPHILS # 4.2 10^3/uL (1.5-8.5); PLATELET COUNT, AUTOMATED 192 10^3/uL (150-450); RED BLOOD COUNT 5.24 10^6/uL (4.00-5.40); WHITE BLOOD COUNT 5.6 10^3/uL (4.0-10.0)
[2022-09-27] MEDS ORDERED: ACETAMINOPHEN 1000MG 100ML IV BAG IV ONE (01:15)
[2022-09-27 01:30] LABS: INR 2.6; PROTHROMBIN TIME 28.3 SECONDS (12.5-14.5)
[2022-09-27 01:31] LABS: PARTIAL THROMBOPLASTIN TIME 37.5 SECONDS (24.8-34.2)
[2022-09-27 01:37] LABS: LIPASE 34 U/L (12-53)
[2022-09-27 01:39] LABS: CPK CREATINE PHOSPHOKINASE 54 U/L (34-145)
[2022-09-27 01:43] LABS: ALBUMIN 3.7 G/DL (3.2-5.2); ALKALINE PHOSPHATASE 67 U/L (46-116); ALT/SGPT 16 U/L (7.0-40); AST/SGOT 17 U/L (<34); BILIRUBIN,DIRECT 0.2 MG/DL (<0.4); BILIRUBIN,TOTAL 0.5 MG/DL (0.3-1.2); CK-MB VALUE MASS < 1.0 NG/ML (<3.6); MB/CK RELATIVE INDEX 1.85 (< OR =4); TOTAL PROTEIN 7.4 G/DL (5.7-8.2)
[2022-09-27] MEDS ORDERED: ISOVUE-370 76% 100ML VIAL As Ordered ONE (02:33)
[2022-09-27 03:07] LABS: MB/CK RELATIVE INDEX 1.96 (< OR =4)
[2022-09-27 04:11] VITALS: BP 122/65
[2022-09-27] MEDS ORDERED: ONDANSETRON 4MG ORAL DISINTEGRATING TAB PO ONE (04:50)
[2022-09-27] MEDS ORDERED: NORCO 5/325MG TABLET (HOME DOSE PACK) PO ONE (04:50)
[2022-09-27] MEDS ORDERED: HYDR-4571 PO (04:56)
[2022-09-27] MEDS ORDERED: ONDA4TAB6 PO (04:56)
== END 2022-09-27 05:04 | disposition home or self-care (01) ==
LOC: M ED 21:05
DX: K43.9 Ventral hernia without obstruction or gangrene (principal); I10 Essential (primary) hypertension; K21.9 Gastro-esophageal reflux disease without esophagitis; F32.A Depression, unspecified; E03.9 Hypothyroidism, unspecified; M32.9 Systemic lupus erythematosus, unspecified; Z87.442 Personal history of urinary calculi; Z88.1 Allergy status to other antibiotic agents; Z88.5 Allergy status to narcotic agent; Z88.8 Allergy status to other drugs, medicaments and biological substances; Z79.01 Long term (current) use of anticoagulants; Z79.83 Long term (current) use of bisphosphonates; Z79.811 Long term (current) use of aromatase inhibitors; Z79.899 Other long term (current) drug therapy
CPT/HCPCS: 71275; 74177; 80047; 80076; 81001; 82550; 82553; 83605; 83690; 84484; 85025; 85610; 85730; 87086; 93005; 96361; 96374; 99284; Q9967

== ENCOUNTER → 2022-10-26 | Outpatient (CLI) | payer MEDICARE, MEDICAID ==
[~2022-10-26] MED LIST changes: -BISO1TAB18; -CALC250T; +CALC250T PO; -FAMO40TA3; +HYDR-4571 PO; -MAGN200T; +MAGN200T PO; +ONDA4TAB6 PO; +PLAQ200T4 PO; -PRED25TA; +PRED25TA PO; -VITA100093; +VITA100093 PO
== END ==
LOC: M LABSMTC 09:09
PROVIDERS: ATTEND Anesthesiology
DX: Z01.812 Encounter for preprocedural laboratory examination (principal); Z20.822 Contact with and (suspected) exposure to COVID-19

== ENCOUNTER 2022-10-29 13:17 | Day surgery (SDC) | payer MEDICARE, MEDICAID ==
[~2022-10-29] VITALS: Ht 172.7 cm; Wt 157.6 kg
[~2022-10-29 13:17] MED LIST changes: +FECAL MICROBIOTA TRANSPLANT PREPARATION 35ML BAG XX ONE; +NS 1,000 ML IV ONE
[2022-10-29] MEDS ORDERED: propofoL 200 MG/20 ML VIAL As Ordered ONE (14:57)
[2022-10-29] MEDS ORDERED: fentaNYL 100 MCG/2 ML INJECTION As Ordered ONE (14:57)
[2022-10-29] MEDS ORDERED: LIDOCAINE 2% INJ 100 MG/5 ML SYRINGE As Ordered ONE (14:57)
[2022-10-29 16:12] VITALS: BP 114/62
== END 2022-10-29 16:22 | disposition home or self-care (01) ==
LOC: M OPP 13:17
PROVIDERS: ATTEND Internal Medicine Gastroenterology
DX: R12 Heartburn (principal); R10.84 Generalized abdominal pain; K31.7 Polyp of stomach and duodenum; K29.70 Gastritis, unspecified, without bleeding; A04.72 Enterocolitis due to Clostridium difficile, not specified as recurrent; K52.9 Noninfective gastroenteritis and colitis, unspecified; R19.4 Change in bowel habit
CPT/HCPCS: 43239; 44705; 45380; 88305; J3010

== ENCOUNTER → 2022-11-02 | Outpatient (CLI) | payer MEDICARE, MEDICAID ==
[~2022-11-02] MED LIST changes: -FECAL MICROBIOTA TRANSPLANT PREPARATION 35ML BAG XX ONE; -NS 1,000 ML IV ONE
== END ==
LOC: M WHC 13:07
PROVIDERS: ATTEND Internal Medicine
DX: Z13.820 Encounter for screening for osteoporosis (principal); Z79.899 Other long term (current) drug therapy; M85.852 Other specified disorders of bone density and structure, left thigh

== ENCOUNTER → 2022-12-16 | Outpatient (REF) | payer MEDICARE, MEDICAID ==
[~2022-12-16] MED LIST changes: +ANIF300V IV; +BISO5TAB14 PO; +BUSP5TA PO; +CALC500T31 PO; +DEXI60CA2 PO; +FAMO20TA5 PO; +FLUT50SP17; -FLUTISP; +JANT10TA PO; +KP F1200 PO; +LINZ72CA PO; +MAGN400T2 PO; +POTA1TAB23 PO
== END ==
LOC: M LAB REF 16:10
PROVIDERS: ATTEND Physician Assistant
DX: R30.0 Dysuria (principal)

== ENCOUNTER → 2022-12-17 | Day surgery (SDC) | payer MEDICARE, MEDICAID ==
[~2022-12-17] VITALS: Ht 170.2 cm; Wt 158.0 kg
[~2022-12-17] MED LIST changes: +LIDOCAINE 2% MDV 20ML VIAL As Ordered ONE; +NS 1,000 ML IV ONE; +propofoL 200 MG/20 ML VIAL As Ordered ONE
[2022-12-17 15:22] VITALS: BP 122/65
== END | disposition home or self-care (01) ==
LOC: M OPP 13:01
PROVIDERS: ATTEND Internal Medicine Gastroenterology
DX: D13.1 Benign neoplasm of stomach (principal); K44.9 Diaphragmatic hernia without obstruction or gangrene; Z79.01 Long term (current) use of anticoagulants; Z79.52 Long term (current) use of systemic steroids; Z79.891 Long term (current) use of opiate analgesic; Z79.899 Other long term (current) drug therapy; Z88.1 Allergy status to other antibiotic agents; Z88.5 Allergy status to narcotic agent; Z88.8 Allergy status to other drugs, medicaments and biological substances

== ENCOUNTER → 2023-01-14 | Outpatient (CLI) | payer MEDICARE, MEDICAID ==
[~2023-01-14] MED LIST changes: -HYDR200T3; +HYDR200T46; -LIDOCAINE 2% MDV 20ML VIAL As Ordered ONE; -NS 1,000 ML IV ONE; -propofoL 200 MG/20 ML VIAL As Ordered ONE
[2023-01-14 11:55] LABS: INR 2.16; PROTHROMBIN TIME 24.5 SECONDS (12.5-14.5)
== END ==
LOC: M LAB 10:47
PROVIDERS: ATTEND Internal Medicine Hematology & Oncology
DX: Z79.01 Long term (current) use of anticoagulants (principal)

== ENCOUNTER → 2023-03-03 | Outpatient (CLI) | payer MEDICARE, MEDICAID | LOC: M RAD 10:02 | PROVIDERS: ATTEND Physician Assistant Medical | DX: R10.84 Generalized abdominal pain (principal); R14.0 Abdominal distension (gaseous); R19.7 Diarrhea, unspecified ==

== ENCOUNTER → 2023-03-11 | Outpatient (CLI) | payer MEDICARE, MEDICAID ==
[2023-03-11 10:48] LABS: INR 1.21
== END ==
LOC: M LAB 09:54
PROVIDERS: ATTEND Internal Medicine Hematology & Oncology
DX: Z79.01 Long term (current) use of anticoagulants (principal); I26.99 Other pulmonary embolism without acute cor pulmonale; M32.9 Systemic lupus erythematosus, unspecified

== ENCOUNTER → 2023-03-21 | Outpatient (CLI) | payer MEDICARE, MEDICAID ==
[2023-03-21 13:40] LABS: INR 1.23; PROTHROMBIN TIME 15.2 SECONDS (12.5-14.5)
== END ==
LOC: M LAB 12:43
PROVIDERS: ATTEND Internal Medicine Hematology & Oncology
DX: Z79.01 Long term (current) use of anticoagulants (principal)

== ENCOUNTER → 2023-03-24 | Outpatient (CLI) | payer MEDICARE, MEDICAID ==
[2023-03-24 14:08] LABS: INR 2.02; PROTHROMBIN TIME 22.4 SECONDS (12.5-14.5)
== END ==
LOC: M LAB 13:29
PROVIDERS: ATTEND Internal Medicine Hematology & Oncology
DX: Z79.01 Long term (current) use of anticoagulants (principal)

== ENCOUNTER → 2023-04-05 | Outpatient (CLI) | payer MEDICARE, MEDICAID ==
[2023-04-05 15:47] LABS: INR 2.32; PROTHROMBIN TIME 24.9 SECONDS (12.5-14.5)
== END ==
LOC: M LAB 14:56
PROVIDERS: ATTEND Internal Medicine Hematology & Oncology
DX: Z79.01 Long term (current) use of anticoagulants (principal); I26.99 Other pulmonary embolism without acute cor pulmonale; M32.9 Systemic lupus erythematosus, unspecified

== ENCOUNTER → 2023-04-13 | Outpatient (CLI) | payer MEDICARE, MEDICAID ==
[~2023-04-13] MED LIST changes: +MECL-209 PO; -MECL1TAB31 PO
[2023-04-13 13:31] LABS: INR 2.34; PROTHROMBIN TIME 25.1 SECONDS (12.5-14.5)
== END ==
LOC: M PLALAB 10:55
PROVIDERS: ATTEND Internal Medicine Hematology & Oncology
DX: I26.99 Other pulmonary embolism without acute cor pulmonale (principal); M32.9 Systemic lupus erythematosus, unspecified; Z79.01 Long term (current) use of anticoagulants

== ENCOUNTER → 2023-04-22 | Outpatient (CLI) | payer MEDICARE, MEDICAID ==
[2023-04-22 13:20] LABS: ALBUMIN 3.5 G/DL (3.2-5.2); ALKALINE PHOSPHATASE 57 U/L (46-116); ALT/SGPT 15 U/L (7.0-40); AST/SGOT 16 U/L (<34); BILIRUBIN,TOTAL 0.5 MG/DL (0.3-1.2); BLOOD UREA NITROGEN 12 MG/DL (9-23); CALCIUM LEVEL 8.5 MG/DL (8.5-10.1); CARBON DIOXIDE LEVEL 28 MMOL/L (20-31); CHLORIDE LEVEL 106 MMOL/L (98-107); CREATININE FOR GFR 0.89 MG/DL (0.55-1.30); GLOMERULAR FILTRATION RATE > 60.0 (>51); GLUCOSE, FASTING 95 MG/DL (60-100); MAGNESIUM LEVEL 1.7 MG/DL (1.8-2.4); POTASSIUM SERUM 3.7 MMOL/L (3.5-5.1); SODIUM LEVEL 140 MMOL/L (136-145); TOTAL PROTEIN 6.9 G/DL (5.7-8.2)
== END ==
LOC: M LAB 12:12
PROVIDERS: ATTEND Nurse Practitioner Family
DX: I10 Essential (primary) hypertension (principal)

== ENCOUNTER → 2023-08-19 | Outpatient (CLI) | payer MEDICARE, MEDICAID ==
[~2023-08-19] MED LIST changes: +CEFD1CAP9 PO; -CEFD300C41 PO; -FLUT50SP17; +FLUTISP
[2023-08-19 13:32] LABS: INR 2.89; PROTHROMBIN TIME 29.2 SECONDS (12.5-14.5)
== END ==
LOC: M LAB 12:22
PROVIDERS: ATTEND Nurse Practitioner Family
DX: Z79.01 Long term (current) use of anticoagulants (principal)

== ENCOUNTER → 2023-09-28 | Outpatient (REF) | payer MEDICARE, MEDICAID, OTHER | LOC: M SFHCWAGY 10:14 | PROVIDERS: ATTEND Specialist | DX: Z12.4 Encounter for screening for malignant neoplasm of cervix (principal); N95.2 Postmenopausal atrophic vaginitis | CPT/HCPCS: 87624; G0123 ==

== ENCOUNTER 2023-12-29 19:19 | Emergency (ER) | payer MEDICARE, MEDICAID ==
[~2023-12-29] VITALS: Ht 172.7 cm; Wt 146.7 kg
[~2023-12-29 19:19] MED LIST changes: +FINA5TAB2; +PILOCARPINE; +PRED5TA; +SPIR50TA4
[2023-12-29 19:45] VITALS: TEMP 98
[2023-12-29] MEDS: MECLIZINE 25 MG TABLET PO ONE (20:28)
[2023-12-29 20:38] LABS: BASO % 0.2 % (0.0-1.0); EOS # 0.1 10^3/uL (0.0-0.5); EOS % 1.4 % (0.0-3.0); HEMATOCRIT 35.8 % (36.0-47.0); HEMOGLOBIN 11.5 g/dl (12.0-15.5); LYMPH # 0.5 10^3/uL (1.5-5.0); LYMPH % 11.4 % (24.0-44.0); MEAN CORPUSCULAR HEMOGLOBIN 23.5 pg (27.0-33.0); MEAN CORPUSCULAR HGB CONC 32.1 g/dl (32.0-36.5); MEAN CORPUSCULAR VOLUME 73.2 fl (80.0-96.0); MONO # 0.3 10^3/uL (0.0-0.8); MONO % 6.4 % (2.0-8.0); NEUTROPHILS # 3.4 10^3/uL (1.5-8.5); NEUTROPHILS % 80.4 % (36.0-66.0); PLATELET COUNT, AUTOMATED 170 10^3/uL (150-450); RED BLOOD COUNT 4.89 10^6/uL (4.00-5.40); WHITE BLOOD COUNT 4.2 10^3/uL (4.0-10.0)
[2023-12-29 20:52] LABS: INR 2.76; PROTHROMBIN TIME 28.2 SECONDS (12.5-14.5)
[2023-12-29 21:02] LABS: CK-MB VALUE MASS < 1.0 NG/ML (<3.6); LIPASE 32 U/L (12-53)
[2023-12-29 21:04] LABS: ALBUMIN 3.5 G/DL (3.2-5.2); ALKALINE PHOSPHATASE 55 U/L (46-116); ALT/SGPT 18 U/L (7.0-40); AST/SGOT 13 U/L (<34); BILIRUBIN,DIRECT 0.1 MG/DL (<0.4); BILIRUBIN,TOTAL 0.3 MG/DL (0.3-1.2); BLOOD UREA NITROGEN 14 MG/DL (9-23); CALCIUM LEVEL 8.4 MG/DL (8.5-10.1); CARBON DIOXIDE LEVEL 25 MMOL/L (20-31); CHLORIDE LEVEL 104 MMOL/L (98-107); CREATININE FOR GFR 0.88 MG/DL (0.55-1.30); GLOMERULAR FILTRATION RATE > 60.0 (>51); GLUCOSE, FASTING 100 MG/DL (60-100); POTASSIUM SERUM 4.5 MMOL/L (3.5-5.1); SODIUM LEVEL 135 MMOL/L (136-145); TOTAL PROTEIN 6.9 G/DL (5.7-8.2)
[2023-12-29 21:08] LABS: CPK CREATINE PHOSPHOKINASE 75 U/L (34-145); MB/CK RELATIVE INDEX 1.33 (< OR =4)
[2023-12-29 23:30] VITALS: BP 116/66; O2SAT 97
[2023-12-30] MEDS ORDERED: MECL-209 PO (00:17)
[2023-12-30] MEDS ORDERED: FLON27.5 NARES (00:17)
== END 2023-12-30 00:49 | disposition home or self-care (01) ==
LOC: M ED 19:19
DX: R42 Dizziness and giddiness (principal); H82.9 Vertiginous syndromes in diseases classified elsewhere, unspecified ear; A69.20 Lyme disease, unspecified; D68.61 Antiphospholipid syndrome; Z86.711 Personal history of pulmonary embolism; M32.9 Systemic lupus erythematosus, unspecified; E03.9 Hypothyroidism, unspecified; E55.9 Vitamin D deficiency, unspecified; G25.81 Restless legs syndrome; Z79.01 Long term (current) use of anticoagulants; Z79.899 Other long term (current) drug therapy; Z88.1 Allergy status to other antibiotic agents; Z88.8 Allergy status to other drugs, medicaments and biological substances; Z88.5 Allergy status to narcotic agent

== ENCOUNTER → 2024-01-11 | Outpatient (CLI) | payer MEDICARE, MEDICAID ==
[~2024-01-11] MED LIST changes: +FLON27.5 NARES; +ONDA-282 PO; -ONDA4TAB6 PO
== END ==
LOC: M CARPUL 10:36
PROVIDERS: ATTEND Internal Medicine
DX: J84.2 Lymphoid interstitial pneumonia (principal)

== ENCOUNTER → 2024-02-21 | Outpatient (CLI) | payer MEDICARE, MEDICAID ==
[~2024-02-21] MED LIST changes: +METHACHOLINE KIT (6 VIAL.NEB PREMIX) INH ONE
== END ==
LOC: M CARPUL 10:35
PROVIDERS: ATTEND Physician Assistant
DX: R06.00 Dyspnea, unspecified (principal)
CPT/HCPCS: 94070; 95070; J7674

== ENCOUNTER → 2024-05-16 | Outpatient (REF) | payer MEDICARE, MEDICAID ==
[~2024-05-16] MED LIST changes: -CALC500T31 PO; -METHACHOLINE KIT (6 VIAL.NEB PREMIX) INH ONE; +OYST500T16 PO; +THERTAB52 PO
== END ==
LOC: M LAB REF 17:35
PROVIDERS: ATTEND Physician Assistant Medical
DX: R19.7 Diarrhea, unspecified (principal)

== ENCOUNTER → 2024-05-17 | Outpatient (CLI) | payer MEDICARE, MEDICAID | LOC: M PLAIMG 15:14 | PROVIDERS: ATTEND Internal Medicine Pulmonary Disease | DX: R05.9 Cough, unspecified (principal) ==

== ENCOUNTER → 2024-06-18 | Outpatient (CLI) | payer MEDICARE, MEDICAID | LOC: M RAD 14:07 | PROVIDERS: ATTEND Internal Medicine Hematology & Oncology | DX: M79.89 Other specified soft tissue disorders (principal); M79.662 Pain in left lower leg ==

== ENCOUNTER → 2024-06-19 | Outpatient (CLI) | payer MEDICARE, MEDICAID ==
[2024-06-19 14:26] LABS: INR 2.47; PROTHROMBIN TIME 26.8 SECONDS (12.5-14.5)
== END ==
LOC: M LAB 12:43
PROVIDERS: ATTEND Nurse Practitioner Family
DX: I26.99 Other pulmonary embolism without acute cor pulmonale (principal); M32.9 Systemic lupus erythematosus, unspecified; Z79.01 Long term (current) use of anticoagulants

== ENCOUNTER → 2024-06-19 | Outpatient (CLI) | payer MEDICARE, MEDICAID ==
[2024-06-19 14:14] LABS: BASO % 0.5 % (0.0-1.0); EOS # 0.2 10^3/uL (0.0-0.5); EOS % 3.7 % (0.0-3.0); HEMATOCRIT 44.7 % (36.0-47.0); HEMOGLOBIN 14.7 g/dl (12.0-15.5); LYMPH # 0.7 10^3/uL (1.5-5.0); LYMPH % 15.3 % (24.0-44.0); MEAN CORPUSCULAR HEMOGLOBIN 27.5 pg (27.0-33.0); MEAN CORPUSCULAR HGB CONC 32.9 g/dl (32.0-36.5); MEAN CORPUSCULAR VOLUME 83.6 fl (80.0-96.0); MONO # 0.3 10^3/uL (0.0-0.8); MONO % 7.6 % (2.0-8.0); NEUTROPHILS # 3.1 10^3/uL (1.5-8.5); NEUTROPHILS % 72.2 % (36.0-66.0); PLATELET COUNT, AUTOMATED 152 10^3/uL (150-450); RED BLOOD COUNT 5.35 10^6/uL (4.00-5.40); WHITE BLOOD COUNT 4.3 10^3/uL (4.0-10.0)
[2024-06-19 14:19] LABS: ERYTHROCYTE SEDIMENTATION RATE 28 mm/hr (0-30)
[2024-06-19 14:44] LABS: C REACTIVE PROTEIN QUANTITATIV < 0.40 MG/DL (<1.0)
[2024-06-19 14:45] LABS: LDH LACTATE DEHYDROGENASE 220 U/L (120-246)
[2024-06-19 14:46] LABS: ALBUMIN 3.5 G/DL (3.2-5.2); ALKALINE PHOSPHATASE 55 U/L (35-104); ALT/SGPT 20 U/L (7.0-40); AST/SGOT 12 U/L (<34); BILIRUBIN,TOTAL 0.5 MG/DL (0.3-1.2); BLOOD UREA NITROGEN 16 MG/DL (9-23); CARBON DIOXIDE LEVEL 28 MMOL/L (20-31); CHLORIDE LEVEL 105 MMOL/L (98-107); CREATININE FOR GFR 0.82 MG/DL (0.55-1.30); GLOMERULAR FILTRATION RATE > 60.0 (>51); GLUCOSE, FASTING 80 MG/DL (60-100); IRON (FE) 68 UG/DL (50-170); PERCENT SATURATION 19.8 % (13.2-45.0); POTASSIUM SERUM 3.7 MMOL/L (3.5-5.1); SODIUM LEVEL 139 MMOL/L (136-145); TOTAL IRON BINDING CAPACITY 343 UG/DL (250-425); TOTAL PROTEIN 7.4 G/DL (5.7-8.2)
[2024-06-19 14:47] LABS: FERRITIN 25.7 NG/ML (7.3-270.7)
[2024-06-19 15:08] LABS: HEPATITIS B SURFACE ANTIGEN NEGATIVE (NEGATIVE)
[2024-06-19 15:20] LABS: HIV 1&2 SCREEN NEGATIVE (NEGATIVE)
[2024-06-19 15:28] LABS: HEPATITIS C VIRUS ABY INDEX 0.03 INDEX (<0.8)
[2024-06-20 10:13] LABS: HAPTOGLOBIN 182 mg/dL (43-212)
[2024-06-20 13:32] LABS: CYTOMEGALOVIRUS IgM ANTIBODY < 30.00 AU/mL (<30.00)
[2024-06-20 13:37] LABS: EBV VIRAL CAPSID AG IgG > 750.00 U/mL (<18.00)
[2024-06-21 15:26] LABS: HEPATITIS B CORE ANTIBODY IGG NON-REACTIVE (NON-REACTIVE)
[2024-06-21 15:47] LABS: QuantiFERON-TB Gold Plus NEGATIVE (NEGATIVE)
== END ==
LOC: M LAB 12:40
PROVIDERS: ATTEND Internal Medicine Hematology & Oncology
DX: I26.99 Other pulmonary embolism without acute cor pulmonale (principal); M32.9 Systemic lupus erythematosus, unspecified; Z79.01 Long term (current) use of anticoagulants; Z11.59 Encounter for screening for other viral diseases; D50.9 Iron deficiency anemia, unspecified

== ENCOUNTER → 2024-06-21 | Outpatient (CLI) | payer MEDICARE, MEDICAID ==
[~2024-06-21] MED LIST changes: +ISOVUE-370 76% 100ML VIAL ONE
== END ==
LOC: M PLAIMG 09:37
PROVIDERS: ATTEND Internal Medicine Hematology & Oncology
DX: R05.3 Chronic cough (principal); R07.89 Other chest pain; R10.10 Upper abdominal pain, unspecified; R91.8 Other nonspecific abnormal finding of lung field; K43.9 Ventral hernia without obstruction or gangrene; R16.1 Splenomegaly, not elsewhere classified
CPT/HCPCS: 71260; 74160; Q9967

== ENCOUNTER → 2024-06-22 | Outpatient (CLI) | payer MEDICARE, MEDICAID ==
[~2024-06-22] MED LIST changes: -ISOVUE-370 76% 100ML VIAL ONE
[2024-06-25 15:08] LABS: EBV AB TO NUCLEAR ANTIGEN > 600.00 U/mL (<18.00); EBV VIRAL CAPSID AG IGG > 750.00 U/mL (<18.00)
== END ==
LOC: M PLALAB 11:17
PROVIDERS: ATTEND Internal Medicine
DX: Z20.828 Contact with and (suspected) exposure to other viral communicable diseases (principal)

== ENCOUNTER → 2024-07-05 | Outpatient (CLI) | payer MEDICARE, MEDICAID | LOC: M PLAIMG 13:39 | PROVIDERS: ATTEND Internal Medicine Hematology & Oncology | DX: I26.99 Other pulmonary embolism without acute cor pulmonale (principal); M32.9 Systemic lupus erythematosus, unspecified; Z79.01 Long term (current) use of anticoagulants; M47.816 Spondylosis without myelopathy or radiculopathy, lumbar region; M17.12 Unilateral primary osteoarthritis, left knee ==

== ENCOUNTER → 2024-08-20 | Outpatient (REF) | payer MEDICARE, MEDICAID, OTHER | LOC: M LAB REF 15:57 | PROVIDERS: ATTEND Physician Assistant | DX: H10.31 Unspecified acute conjunctivitis, right eye (principal) ==

== ENCOUNTER → 2024-10-24 | Outpatient (CLI) | payer MEDICARE, MEDICAID | LOC: M PLAIMG 10:23 | PROVIDERS: ATTEND Internal Medicine Pulmonary Disease | DX: R91.8 Other nonspecific abnormal finding of lung field (principal) ==

== ENCOUNTER → 2025-04-30 | Outpatient (REF) | payer MEDICARE, MEDICAID ==
[~2025-04-30] MED LIST changes: +PRED-1142 PO; -PRED1TABL PO
== END ==
LOC: M LAB REF 17:01
PROVIDERS: ATTEND Nurse Practitioner Family
DX: J00 Acute nasopharyngitis [common cold] (principal)

== ENCOUNTER → 2025-05-17 | Outpatient (CLI) | payer MEDICARE, MEDICAID ==
[2025-05-17 13:02] LABS: INR 1.39
== END ==
LOC: M LAB 12:15
PROVIDERS: ATTEND Nurse Practitioner Family
DX: I26.99 Other pulmonary embolism without acute cor pulmonale (principal); M32.9 Systemic lupus erythematosus, unspecified; Z79.01 Long term (current) use of anticoagulants

== ENCOUNTER → 2025-05-23 | Outpatient (CLI) | payer MEDICARE, MEDICAID ==
[~2025-05-23] MED LIST changes: +ISOVUE-370 76% 100 ML VIAL As Ordered ONE
== END ==
LOC: M RAD 06:48
PROVIDERS: ATTEND Internal Medicine Hematology & Oncology
DX: D68.61 Antiphospholipid syndrome (principal); C83.04 Small cell B-cell lymphoma, lymph nodes of axilla and upper limb; I26.99 Other pulmonary embolism without acute cor pulmonale; M32.9 Systemic lupus erythematosus, unspecified; Z79.01 Long term (current) use of anticoagulants; R22.42 Localized swelling, mass and lump, left lower limb
CPT/HCPCS: 73701; Q9967

== ENCOUNTER → 2025-06-03 | Outpatient (CLI) | payer MEDICARE, MEDICAID ==
[~2025-06-03] MED LIST changes: -ISOVUE-370 76% 100 ML VIAL As Ordered ONE
[2025-06-03 12:26] LABS: INR 1.79
== END ==
LOC: M LAB 11:11
PROVIDERS: ATTEND Nurse Practitioner Family
DX: Z51.81 Encounter for therapeutic drug level monitoring (principal); Z79.01 Long term (current) use of anticoagulants; M32.9 Systemic lupus erythematosus, unspecified; Z86.711 Personal history of pulmonary embolism

== ENCOUNTER → 2025-06-10 | Outpatient (REF) | payer MEDICARE, MEDICAID ==
[2025-06-10 18:27] LABS: INR 6.45
== END ==
LOC: M LAB REF 16:18
PROVIDERS: ATTEND Student in an Organized Health Care Education/Training Program
DX: C83.30 Diffuse large B-cell lymphoma, unspecified site (principal)

== ENCOUNTER → 2025-06-17 | Outpatient (CLI) | payer MEDICARE, MEDICAID ==
[~2025-06-17] MED LIST changes: +ENOX40IN3 SC
[2025-06-17 08:40] LABS: BASO # 0.1 10^3/uL (0.0-0.2); BASO % 1.0 % (0.0-1.0); EOS # 0.1 10^3/uL (0.0-0.5); EOS % 1.4 % (0.0-3.0); LYMPH # 0.3 10^3/uL (1.5-5.0); LYMPH % 6.7 % (24.0-44.0); MONO # 0.4 10^3/uL (0.0-0.8); MONO % 7.3 % (2.0-8.0); NEUTROPHILS # 3.8 10^3/uL (1.5-8.5); NEUTROPHILS % 77.7 % (36.0-66.0); PLATELET COUNT, AUTOMATED 178 10^3/uL (150-450)
[2025-06-17 09:06] LABS: LDH LACTATE DEHYDROGENASE 320.0 U/L (120-246)
[2025-06-17 09:07] LABS: ALT/SGPT 123.0 U/L (7.0-40); AST/SGOT 80.0 U/L (<34); CALCIUM LEVEL 8.9 MG/DL (8.5-10.1); CARBON DIOXIDE LEVEL 30.0 MMOL/L (20-31); CHLORIDE LEVEL 102.0 MMOL/L (98-107); CREATININE FOR GFR 0.84 MG/DL (0.55-1.30); GLOMERULAR FILTRATION RATE 82.0 (>51); POTASSIUM SERUM 4.1 MMOL/L (3.5-5.1); SODIUM LEVEL 140.0 MMOL/L (136-145)
== END ==
LOC: M LAB 07:40
PROVIDERS: ATTEND Internal Medicine Hematology & Oncology
DX: B37.0 Candidal stomatitis (principal); D68.61 Antiphospholipid syndrome

== ENCOUNTER → 2025-06-17 | Outpatient (CLI) | payer MEDICARE, MEDICAID ==
[2025-06-17 08:58] LABS: INR 1.13
== END ==
LOC: M LAB 07:42
PROVIDERS: ATTEND Nurse Practitioner Family
DX: B37.0 Candidal stomatitis (principal); D68.61 Antiphospholipid syndrome; C83.04 Small cell B-cell lymphoma, lymph nodes of axilla and upper limb; Z79.01 Long term (current) use of anticoagulants; M32.9 Systemic lupus erythematosus, unspecified; I26.99 Other pulmonary embolism without acute cor pulmonale

== ENCOUNTER → 2025-06-18 | Outpatient (CLI) | payer MEDICARE, MEDICAID ==
[~2025-06-18] VITALS: Ht 172.7 cm; Wt 65.8 kg
[~2025-06-18] MED LIST changes: -ALBU8.5H; +ALBU8.5H INH; +ATOV5SUS PO; -BACTDSTA PO; +CARA1TAB6 PO; +CEFP200T PO; +FINA-37; -FINA5TAB2; +FLON1SPR NARES; +MIDAZOLAM INJ 2 MG/2 ML VIAL IV PRN; +NYST-38 SS; +ONDANSETRON 4MG/2ML VIAL IV ONE; +POLY17PO18 PO; +POTA-232 PO; -POTA10TA67 PO; -PRED5TA; +PRED5TA PO; +PROC10TA5 PO; -SPIR50TA4; +SPIR50TA4 PO; +SUCR1TA PO; +SULF-8 PO; +VALA-3 PO; +WARF-20 PO; +WARF-23; +WARF4TAB52 PO
[2025-06-18 14:33] VITALS: TEMP 96.7
[2025-06-18] MEDS: LIDOCAINE 1% MDV 20 ML VIAL SC ONE (15:15)
[2025-06-18] MEDS: NS (Normal Saline) 0.9% 1,000 ML IV SCH (15:44)
[2025-06-18] MEDS: ceFAZolin SODIUM 2 GM in DEXTROSE 5% (D5W) ADV/MINI-BAG 50 ML IV ONE (15:46)
[2025-06-18] MEDS: ISOVUE-300 61% 100 ML VIAL IV STA (16:04)
[2025-06-18 16:10] VITALS: BP 119/73; O2SAT 100
== END ==
LOC: M IRPRO 14:28
PROVIDERS: ATTEND Radiology Diagnostic Radiology
DX: C83.30 Diffuse large B-cell lymphoma, unspecified site (principal)
CPT/HCPCS: 36598; J0688; J1642; Q9967

== ENCOUNTER → 2025-06-26 | Outpatient (CLI) | payer MEDICARE, MEDICAID ==
[~2025-06-26] MED LIST changes: +ALBU8.5H; -ALBU8.5H INH; -ATOV5SUS PO; -CARA1TAB6 PO; -CEFP200T PO; -FINA-37; +FINA5TAB2; -FLON1SPR NARES; -MIDAZOLAM INJ 2 MG/2 ML VIAL IV PRN; -NYST-38 SS; -ONDANSETRON 4MG/2ML VIAL IV ONE; -POLY17PO18 PO; +PRED5TA; -PRED5TA PO; -PROC10TA5 PO; +SPIR50TA4; -SPIR50TA4 PO; -SUCR1TA PO; -VALA-3 PO; -WARF-20 PO; -WARF-23; -WARF4TAB52 PO
[2025-06-26 11:24] LABS: INR 2.32
== END ==
LOC: M LAB 09:17
PROVIDERS: ATTEND Nurse Practitioner Family
DX: B37.0 Candidal stomatitis (principal); D68.61 Antiphospholipid syndrome; C83.04 Small cell B-cell lymphoma, lymph nodes of axilla and upper limb; Z79.01 Long term (current) use of anticoagulants

== ENCOUNTER → 2025-07-01 | Outpatient (CLI) | payer MEDICARE, MEDICAID ==
[2025-07-01 14:18] LABS: INR 4.97
== END ==
LOC: M WUC 10:57
PROVIDERS: ATTEND Nurse Practitioner Family
DX: B37.0 Candidal stomatitis (principal); D68.61 Antiphospholipid syndrome; C83.04 Small cell B-cell lymphoma, lymph nodes of axilla and upper limb; M32.9 Systemic lupus erythematosus, unspecified; Z79.01 Long term (current) use of anticoagulants

== ENCOUNTER 2025-07-08 14:27 | Inpatient (IN) | payer MEDICARE, MEDICAID ==
[~2025-07-08] VITALS: Ht 172.7 cm; Wt 139.6 kg
[~2025-07-08 14:27] MED LIST changes: -ALBU8.5H; +ALBU8.5H INH; -PRED5TA; +PRED5TA PO; +SODIUM CHLORIDE 0.9% INJ 10 ML SYR IV SCH; -SPIR50TA4; +SPIR50TA4 PO
[2025-07-08] MEDS ORDERED: PROC10TA5 PO (15:27)
[2025-07-08] MEDS ORDERED: ATOV5SUS PO (15:27)
[2025-07-08] MEDS ORDERED: VALA-3 PO (15:27)
[2025-07-08] MEDS ORDERED: WARF-23 (15:27)
[2025-07-08 16:20] LABS: BASO # 0.0 10^3/uL (0.0-0.2); BASO % 0.5 % (0.0-1.0); EOS # 0.0 10^3/uL (0.0-0.5); EOS % 0.3 % (0.0-3.0); LYMPH # 0.3 10^3/uL (1.5-5.0); LYMPH % 4.0 % (24.0-44.0); MONO # 0.9 10^3/uL (0.0-0.8); MONO % 14.1 % (2.0-8.0); NEUTROPHILS # 5.1 10^3/uL (1.5-8.5); NEUTROPHILS % 79.4 % (36.0-66.0); PLATELET COUNT, AUTOMATED 107 10^3/uL (150-450)
[2025-07-08 16:35] LABS: VENOUS BASE EXCESS -1.2 (-2.0-2.0); VENOUS HCO3 22.0 MMOL/L (23.0-27.0); VENOUS O2 SATURATION 86.8 % (60.0-80.0); VENOUS PARTIAL PRESSURE CO2 32.9 mmHg (38.0-50.0); VENOUS PARTIAL PRESSURE O2 51.4 mmHg (30.0-50.0); VENOUS PH 7.444 UNITS (7.330-7.430); VENOUS STANDARD HCO3 23.2 MMOL/L; VENOUS TOTAL CO2 23.1 MMOL/L (24.0-28.0)
[2025-07-08] MEDS: NS (Normal Saline) 0.9% 1,000 ML IV SCH (16:39)
[2025-07-08] MEDS ORDERED: HEPARIN LOCK FLUSH 100 UNITS/ML 3 ML SYRINGE IV ONE (16:45)
[2025-07-08 17:06] LABS: INR 2.91
[2025-07-08] MEDS: HEPARIN LOCK FLUSH 100 UNITS/ML 3 ML SYRINGE IV PRN (17:40)
[2025-07-08] MEDS: SODIUM CHLORIDE 0.9% INJ 10 ML SYR IV PRN (17:40)
[2025-07-08 17:42] LABS: ALT/SGPT 1255 U/L (7.0-40); AST/SGOT 776 U/L (<34); CALCIUM LEVEL 8.2 MG/DL (8.5-10.1); CARBON DIOXIDE LEVEL 24 MMOL/L (20-31); CHLORIDE LEVEL 97 MMOL/L (98-107); CREATININE FOR GFR 0.87 MG/DL (0.55-1.30); GLOMERULAR FILTRATION RATE 78.6 (>51); POTASSIUM SERUM 4.2 MMOL/L (3.5-5.1); SODIUM LEVEL 129 MMOL/L (136-145)
[2025-07-08] MEDS ORDERED: ISOVUE-370 76% 100 ML VIAL As Ordered ONE (17:51)
[2025-07-08 18:49] LABS: HEPATITIS C VIRUS ABY INDEX < 0.02 INDEX (<0.8)
[2025-07-08] MEDS: SODIUM CHLORIDE 0.9% INJ 10 ML SYR IV SCH (18:56)
[2025-07-08] MEDS: HEPARIN LOCK FLUSH 100 UNITS/ML 3 ML SYRINGE IV SCH (18:57)
[2025-07-08] MEDS: FAMOTIDINE 20 MG TAB PO SCH (21:00)
[2025-07-08] MEDS: NYSTATIN 500,000 UNITS/5 ML SUSP UDC SS SCH (21:00)
[2025-07-08] MEDS ORDERED: FLON1SPR NARES (21:11)
[2025-07-08] MEDS ORDERED: WARF4TAB52 PO (21:14)
[2025-07-08] MEDS ORDERED: POLY17PO18 PO (21:15)
[2025-07-08] MEDS ORDERED: NYST-38 SS (21:16)
[2025-07-08] MEDS ORDERED: HOME MED LIST COMPLETE! XX SCH (21:20)
[2025-07-08] MEDS: DOCUSATE SODIUM 100 MG CAPSULE PO SCH (21:22)
[2025-07-09] MEDS ORDERED: ONDANSETRON 4MG ORAL DISINTEGRATING TAB PO PRN (00:30)
[2025-07-09] MEDS: NS (Normal Saline) 0.9% 1,000 ML IV SCH (02:26)
[2025-07-09] MEDS: ACETAMINOPHEN *IV* 1,000 MG in IV 1 EA IV ONE (03:29)
[2025-07-09] MEDS: BENZONATATE 100 MG CAPSULE PO PRN (03:54)
[2025-07-09] MEDS: LEVOTHYROXINE 100 MCG TABLET (0.1 MG) PO SCH (05:07)
[2025-07-09] MEDS: CEFEPIME HCL 2 GM in DEXTROSE 5% (D5W) ADV/MINI-BAG 50 ML IV SCH (05:07)
[2025-07-09 06:06] LABS: PLATELET COUNT, AUTOMATED 88 10^3/uL (150-450)
[2025-07-09 06:28] LABS: AST/SGOT 744 U/L (<34); CALCIUM LEVEL 7.2 MG/DL (8.5-10.1); CARBON DIOXIDE LEVEL 23 MMOL/L (20-31); CHLORIDE LEVEL 101 MMOL/L (98-107); CREATININE FOR GFR 0.78 MG/DL (0.55-1.30); GLOMERULAR FILTRATION RATE 89.6 (>51); POTASSIUM SERUM 3.7 MMOL/L (3.5-5.1); SODIUM LEVEL 132 MMOL/L (136-145)
[2025-07-09 06:31] LABS: ALT/SGPT 1194 U/L (7.0-40)
[2025-07-09] MEDS: VANCOMYCIN HCL 2,000 MG, VIAL MATE ADAPTER 1 EACH in NS 500 ML IV ONE (08:03)
[2025-07-09] MEDS: SPIRONOLACTONE 50 MG TAB PO SCH (09:00)
[2025-07-09] MEDS: POTASSIUM CHLORIDE 10MEQ SR TABLET PO SCH (09:35)
[2025-07-09] MEDS: guaiFENesin SYRUP 200 MG/10 ML UDC PO PRN (11:11)
[2025-07-09 13:45] LABS: ALT/SGPT 1348 U/L (7.0-40); AST/SGOT 886 U/L (<34); CALCIUM LEVEL 7.5 MG/DL (8.5-10.1); CARBON DIOXIDE LEVEL 21 MMOL/L (20-31); CHLORIDE LEVEL 102 MMOL/L (98-107); CREATININE FOR GFR 0.69 MG/DL (0.55-1.30); GLOMERULAR FILTRATION RATE > 90.0 (>51); POTASSIUM SERUM 4.0 MMOL/L (3.5-5.1); SODIUM LEVEL 133 MMOL/L (136-145)
[2025-07-09 15:15] LABS: MONO REFLEX EBV VCA IgM NEGATIVE (NEGATIVE)
[2025-07-09] MEDS: predniSONE 20 MG TAB PO ONE (16:00)
[2025-07-09] MEDS: VANCOMYCIN HCL 1,000 MG, VIAL MATE ADAPTER 1 EACH in NS 250 ML IV SCH (16:06)
[2025-07-09] MEDS: WARFARIN SOD 5MG TAB PO SCH (17:57)
[2025-07-09] MEDS: WARFARIN SOD 1MG TAB PO SCH (18:21)
[2025-07-09 20:21] VITALS: BP 117/60; TEMP 97.7; O2SAT 98
[2025-07-09 21:50] LABS: ALT/SGPT 1389 U/L (7.0-40); AST/SGOT 786 U/L (<34); CALCIUM LEVEL 7.4 MG/DL (8.5-10.1); CARBON DIOXIDE LEVEL 20 MMOL/L (20-31); CHLORIDE LEVEL 106 MMOL/L (98-107); CREATININE FOR GFR 0.63 MG/DL (0.55-1.30); GLOMERULAR FILTRATION RATE > 90.0 (>51); POTASSIUM SERUM 4.2 MMOL/L (3.5-5.1); SODIUM LEVEL 136 MMOL/L (136-145)
[2025-07-10 05:46] VITALS: BP 105/55; TEMP 97.3; O2SAT 96
[2025-07-10 08:29] LABS: BASO # 0.0 10^3/uL (0.0-0.2); BASO % 0.0 % (0.0-1.0); EOS # 0.0 10^3/uL (0.0-0.5); EOS % 0.0 % (0.0-3.0); LYMPH # 0.2 10^3/uL (1.5-5.0); LYMPH % 7.9 % (24.0-44.0); MONO # 0.3 10^3/uL (0.0-0.8); MONO % 13.3 % (2.0-8.0); NEUTROPHILS # 1.8 10^3/uL (1.5-8.5); NEUTROPHILS % 76.7 % (36.0-66.0)
[2025-07-10 08:30] LABS: PLATELET COUNT, AUTOMATED 81 10^3/uL (150-450)
[2025-07-10 08:51] LABS: INR 4.13
[2025-07-10 08:56] LABS: C REACTIVE PROTEIN QUANTITATIV 7.65 MG/DL (<1.0)
[2025-07-10 09:14] LABS: KETONE, URINE AUTO RFX NEGATIVE (NEGATIVE); LEUKOCYTE ESTERASE UR AUTO RFX NEGATIVE (NEGATIVE); NITRITE, URINE AUTO RFX NEGATIVE (NEGATIVE); RBC, URINE AUTO RFX 0 /HPF (0-3); SQUAM EPITHELIAL CELL UR AURFX 0 /HPF (0-6); WBC, URINE AUTO RFX 1 /HPF (0-3)
[2025-07-10 09:33] LABS: ALT/SGPT 1233 U/L (7.0-40); AST/SGOT 602 U/L (<34); CALCIUM LEVEL 7.3 MG/DL (8.5-10.1); CARBON DIOXIDE LEVEL 23 MMOL/L (20-31); CHLORIDE LEVEL 109 MMOL/L (98-107); CREATININE FOR GFR 0.56 MG/DL (0.55-1.30); GLOMERULAR FILTRATION RATE > 90.0 (>51); POTASSIUM SERUM 3.8 MMOL/L (3.5-5.1); SODIUM LEVEL 140 MMOL/L (136-145)
[2025-07-10] MEDS: predniSONE 20 MG TAB PO SCH (09:43)
[2025-07-10] MEDS: VANCOMYCIN HCL 1,250 MG, VIAL MATE ADAPTER 1 EACH in NS 250 ML IV SCH (09:48)
[2025-07-10 12:00] VITALS: BP 110/73; TEMP 98; O2SAT 96
[2025-07-10 14:16] LABS: ALT/SGPT 1197 U/L (7.0-40); AST/SGOT 584 U/L (<34); CALCIUM LEVEL 7.5 MG/DL (8.5-10.1); CARBON DIOXIDE LEVEL 22 MMOL/L (20-31); CHLORIDE LEVEL 109 MMOL/L (98-107); CREATININE FOR GFR 0.55 MG/DL (0.55-1.30); GLOMERULAR FILTRATION RATE > 90.0 (>51); POTASSIUM SERUM 4.1 MMOL/L (3.5-5.1); SODIUM LEVEL 139 MMOL/L (136-145)
[2025-07-10 21:19] VITALS: BP 117/64; TEMP 98.4; O2SAT 95
[2025-07-11 05:13] VITALS: BP 108/62; TEMP 98.9; O2SAT 100
[2025-07-11 09:29] LABS: INR 4.67
[2025-07-11 09:35] LABS: VANCOMYCIN LEVEL TROUGH 18.7 UG/ML (10.0-20.0)
[2025-07-11 09:45] LABS: ALT/SGPT 980.0 U/L (7.0-40); AST/SGOT 455.0 U/L (<34)
[2025-07-11] MEDS: VANCOMYCIN HCL 1,000 MG, VIAL MATE ADAPTER 1 EACH in NS 250 ML IV SCH (10:07)
[2025-07-11 10:28] LABS: BASO # 0.0 10^3/uL (0.0-0.2); BASO % 0.3 % (0.0-1.0); EOS # 0.0 10^3/uL (0.0-0.5); EOS % 0.3 % (0.0-3.0); LYMPH # 0.2 10^3/uL (1.5-5.0); LYMPH % 6.0 % (24.0-44.0); MONO # 0.5 10^3/uL (0.0-0.8); MONO % 12.8 % (2.0-8.0); NEUTROPHILS # 3.0 10^3/uL (1.5-8.5); NEUTROPHILS % 79.0 % (36.0-66.0)
[2025-07-11 10:31] LABS: PLATELET COUNT, AUTOMATED 97 10^3/uL (150-450)
[2025-07-11 20:19] VITALS: BP 126/69; TEMP 98; O2SAT 99
[2025-07-12 06:07] VITALS: BP 103/58; TEMP 98.2; O2SAT 98
[2025-07-12 06:51] LABS: BASO # 0.0 10^3/uL (0.0-0.2); BASO % 0.3 % (0.0-1.0); EOS # 0.0 10^3/uL (0.0-0.5); EOS % 0.8 % (0.0-3.0); LYMPH # 0.3 10^3/uL (1.5-5.0); LYMPH % 6.9 % (24.0-44.0); MONO # 0.4 10^3/uL (0.0-0.8); MONO % 10.8 % (2.0-8.0); NEUTROPHILS # 2.9 10^3/uL (1.5-8.5); NEUTROPHILS % 79.3 % (36.0-66.0); PLATELET COUNT, AUTOMATED 105 10^3/uL (150-450)
[2025-07-12 07:17] LABS: INR 4.11
[2025-07-12 07:19] LABS: ALT/SGPT 894.0 U/L (7.0-40); AST/SGOT 435.0 U/L (<34)
[2025-07-12] MEDS ORDERED: LEVO1TAB40 PO (08:00)
[2025-07-12] MEDS ORDERED: PRED20TA PO (08:03)
[2025-07-12] MEDS ORDERED: CARA1TAB6 PO (08:03)
[2025-07-12 09:20] VITALS: BP 126/74
[2025-07-12 12:00] VITALS: BP 135/66; TEMP 97; O2SAT 97
[2025-07-12] MEDS ORDERED: CEFP200T PO (13:05)
[2025-07-12 16:52] LABS: FUNGITELL, SERUM 54 pg/mL (<60)
== END 2025-07-12 15:02 | disposition home or self-care (01) | DRG 441 ==
LOC: M ED 14:27 → M ED INP 14:28 → UNDOADMOB 14:28 → OBSVTOIN 07-09 04:51 → M ED INP 07-09 04:51 → INTOOBSV 07-09 04:51 → M MSPAV 07-09 17:00
PROVIDERS: ADMIT Student in an Organized Health Care Education/Training Program; ATTEND General Practice
DX: K71.9 Toxic liver disease, unspecified (principal); D61.810 Antineoplastic chemotherapy induced pancytopenia; E87.1 Hypo-osmolality and hyponatremia; C83.31 Diffuse large B-cell lymphoma, lymph nodes of head, face, and neck; D84.9 Immunodeficiency, unspecified; B37.0 Candidal stomatitis; D68.61 Antiphospholipid syndrome; C83.10 Mantle cell lymphoma, unspecified site; K76.6 Portal hypertension; D68.32 Hemorrhagic disorder due to extrinsic circulating anticoagulants; E66.9 Obesity, unspecified; R07.89 Other chest pain; M35.00 Sjogren syndrome, unspecified; E80.6 Other disorders of bilirubin metabolism; R74.01 Elevation of levels of liver transaminase levels; R05.9 Cough, unspecified; M32.9 Systemic lupus erythematosus, unspecified; Z86.711 Personal history of pulmonary embolism; D50.9 Iron deficiency anemia, unspecified; E03.9 Hypothyroidism, unspecified; I10 Essential (primary) hypertension; Z79.01 Long term (current) use of anticoagulants; Z79.890 Hormone replacement therapy; Z79.52 Long term (current) use of systemic steroids; Z79.899 Other long term (current) drug therapy; Z88.0 Allergy status to penicillin; Z88.1 Allergy status to other antibiotic agents; Z88.5 Allergy status to narcotic agent; Z88.8 Allergy status to other drugs, medicaments and biological substances

== ENCOUNTER → 2025-07-15 | Outpatient (CLI) | payer MEDICARE, MEDICAID ==
[~2025-07-15] MED LIST changes: +ATOV5SUS PO; +CARA1TAB6 PO; +CEFP200T PO; +FLON1SPR NARES; +NYST-38 SS; +POLY17PO18 PO; +PROC10TA5 PO; -SODIUM CHLORIDE 0.9% INJ 10 ML SYR IV SCH; +VALA-3 PO; +WARF-23; +WARF4TAB52 PO
[2025-07-15 11:42] LABS: INR 1.42
== END ==
LOC: M LAB 10:12
PROVIDERS: ATTEND Nurse Practitioner Family
DX: B37.0 Candidal stomatitis (principal); D68.61 Antiphospholipid syndrome; C83.04 Small cell B-cell lymphoma, lymph nodes of axilla and upper limb; I26.99 Other pulmonary embolism without acute cor pulmonale; M32.9 Systemic lupus erythematosus, unspecified; Z79.01 Long term (current) use of anticoagulants

== ENCOUNTER → 2025-07-15 | Outpatient (CLI) | payer MEDICARE, MEDICAID ==
[2025-07-15 11:18] LABS: BASO # 0.0 10^3/uL (0.0-0.2); BASO % 0.2 % (0.0-1.0); EOS # 0.1 10^3/uL (0.0-0.5); EOS % 1.6 % (0.0-3.0); LYMPH # 0.3 10^3/uL (1.5-5.0); LYMPH % 6.2 % (24.0-44.0); MONO # 0.5 10^3/uL (0.0-0.8); MONO % 11.5 % (2.0-8.0); NEUTROPHILS # 3.5 10^3/uL (1.5-8.5); NEUTROPHILS % 77.4 % (36.0-66.0); PLATELET COUNT, AUTOMATED 118 10^3/uL (150-450)
[2025-07-15 11:51] LABS: ALT/SGPT 994 U/L (7.0-40); AST/SGOT 455 U/L (<34); CALCIUM LEVEL 8.4 MG/DL (8.5-10.1); CARBON DIOXIDE LEVEL 30 MMOL/L (20-31); CHLORIDE LEVEL 105 MMOL/L (98-107); CREATININE FOR GFR 0.68 MG/DL (0.55-1.30); GLOMERULAR FILTRATION RATE > 90.0 (>51); POTASSIUM SERUM 3.7 MMOL/L (3.5-5.1); SODIUM LEVEL 143 MMOL/L (136-145)
== END ==
LOC: M LAB 10:37
PROVIDERS: ATTEND Internal Medicine Hematology & Oncology
DX: B37.0 Candidal stomatitis (principal); D68.61 Antiphospholipid syndrome; C83.04 Small cell B-cell lymphoma, lymph nodes of axilla and upper limb; I26.99 Other pulmonary embolism without acute cor pulmonale; M32.9 Systemic lupus erythematosus, unspecified; Z79.01 Long term (current) use of anticoagulants

== ENCOUNTER → 2025-07-17 | Outpatient (CLI) | payer MEDICARE, MEDICAID ==
[~2025-07-17] MED LIST changes: +SUCR1TA PO; +WARF-20 PO
[2025-07-17 13:53] LABS: BASO # 0.0 10^3/uL (0.0-0.2); BASO % 0.4 % (0.0-1.0); EOS # 0.3 10^3/uL (0.0-0.5); EOS % 5.3 % (0.0-3.0); LYMPH # 0.4 10^3/uL (1.5-5.0); LYMPH % 7.1 % (24.0-44.0); MONO # 0.4 10^3/uL (0.0-0.8); MONO % 8.1 % (2.0-8.0); NEUTROPHILS # 3.8 10^3/uL (1.5-8.5); NEUTROPHILS % 77.5 % (36.0-66.0); PLATELET COUNT, AUTOMATED 112 10^3/uL (150-450)
[2025-07-17 14:11] LABS: INR 1.46
[2025-07-17 14:19] LABS: ALT/SGPT 921 U/L (7.0-40); AST/SGOT 465 U/L (<34); IRON (FE) 96 UG/DL (50-170); PERCENT SATURATION 28.1 % (13.2-45.0)
[2025-07-17 15:00] LABS: HEPATITIS C VIRUS ABY INDEX 0.03 INDEX (<0.8)
[2025-07-21 01:06] LABS: ANTI-SMOOTH MUSCLE ANTIBODY < 20 U (<20)
[2025-07-21 23:49] LABS: LIVER-KIDNEY MICROSOMAL ABY <= 20.0 U (<=20.0)
[2025-07-26 18:48] LABS: CERULOPLASMIN 26.0 mg/dL (14-48); P ANCA TITER >=1:640 Titer (<1:20)
== END ==
LOC: M LAB 12:20
PROVIDERS: ATTEND Internal Medicine Gastroenterology
DX: Z01.89 Encounter for other specified special examinations (principal); R74.8 Abnormal levels of other serum enzymes; Z79.01 Long term (current) use of anticoagulants

== ENCOUNTER → 2025-07-19 | Outpatient (CLI) | payer MEDICARE, MEDICAID ==
[2025-07-19 12:03] LABS: BASO # 0.0 10^3/uL (0.0-0.2); BASO % 0.6 % (0.0-1.0); EOS # 0.4 10^3/uL (0.0-0.5); EOS % 8.4 % (0.0-3.0); LYMPH # 0.3 10^3/uL (1.5-5.0); LYMPH % 5.3 % (24.0-44.0); MONO # 0.4 10^3/uL (0.0-0.8); MONO % 8.2 % (2.0-8.0); NEUTROPHILS # 3.9 10^3/uL (1.5-8.5); NEUTROPHILS % 76.5 % (36.0-66.0); PLATELET COUNT, AUTOMATED 113 10^3/uL (150-450)
[2025-07-19 12:45] LABS: INR 2.36
[2025-07-19 13:08] LABS: ALT/SGPT 1065 U/L (7.0-40); AST/SGOT 576 U/L (<34); CALCIUM LEVEL 8.7 MG/DL (8.5-10.1); CARBON DIOXIDE LEVEL 30 MMOL/L (20-31); CHLORIDE LEVEL 100 MMOL/L (98-107); CREATININE FOR GFR 0.73 MG/DL (0.55-1.30); GLOMERULAR FILTRATION RATE > 90.0 (>51); POTASSIUM SERUM 3.9 MMOL/L (3.5-5.1); SODIUM LEVEL 138 MMOL/L (136-145); TRIGLYCERIDES LEVEL 102 MG/DL (<150)
[2025-07-23 13:52] LABS: BORRELIA SPECIES DNA NOT DETECTED (NOT DETECT)
[2025-07-23 16:32] LABS: CMV QUANT DNA PCR (PLASMA) Not Detected; log10 CMV QN DNA P1 Not Detected log IU/mL
[2025-07-23 19:53] LABS: LYME TOTAL ANTIBODY CIA <= 0.90 Index (<=0.90)
[2025-07-23 21:32] LABS: EBV PCR QUANTITATIVE Not Detected
== END ==
LOC: M LAB 10:22
PROVIDERS: ATTEND Internal Medicine Hematology & Oncology
DX: B37.0 Candidal stomatitis (principal); D68.61 Antiphospholipid syndrome; C83.04 Small cell B-cell lymphoma, lymph nodes of axilla and upper limb; I26.99 Other pulmonary embolism without acute cor pulmonale; M32.9 Systemic lupus erythematosus, unspecified; Z79.01 Long term (current) use of anticoagulants; Z79.899 Other long term (current) drug therapy

== ENCOUNTER 2025-07-21 14:23 | Emergency (ER) | payer MEDICARE, MEDICAID ==
[~2025-07-21] VITALS: Ht 172.7 cm; Wt 138.4 kg
[~2025-07-21 14:23] MED LIST changes: -SUCR1TA PO; -WARF-20 PO
[2025-07-21 14:25] VITALS: TEMP 98.4
[2025-07-21 15:43] LABS: BASO # 0.0 10^3/uL (0.0-0.2); BASO % 0.3 % (0.0-1.0); EOS # 0.5 10^3/uL (0.0-0.5); EOS % 7.7 % (0.0-3.0); LYMPH # 0.2 10^3/uL (1.5-5.0); LYMPH % 2.9 % (24.0-44.0); MONO # 0.6 10^3/uL (0.0-0.8); MONO % 9.7 % (2.0-8.0); NEUTROPHILS # 4.9 10^3/uL (1.5-8.5); NEUTROPHILS % 78.8 % (36.0-66.0); PLATELET COUNT, AUTOMATED 116 10^3/uL (150-450)
[2025-07-21 16:02] LABS: ALT/SGPT 868.0 U/L (7.0-40); AST/SGOT 470.0 U/L (<34); CALCIUM LEVEL 9.5 MG/DL (8.5-10.1); CARBON DIOXIDE LEVEL 28.0 MMOL/L (20-31); CHLORIDE LEVEL 104.0 MMOL/L (98-107); CREATININE FOR GFR 0.8 MG/DL (0.55-1.30); GLOMERULAR FILTRATION RATE 87.0 (>51); POTASSIUM SERUM 4.6 MMOL/L (3.5-5.1); SODIUM LEVEL 141.0 MMOL/L (136-145)
[2025-07-21 16:04] LABS: INR 4.29
[2025-07-21] MEDS ORDERED: ISOVUE-370 76% 100 ML VIAL As Ordered ONE (16:34)
[2025-07-21] MEDS ORDERED: SUCR1TA PO (23:06)
[2025-07-21] MEDS ORDERED: WARF4TAB52 PO (23:10)
[2025-07-21] MEDS ORDERED: WARF-20 PO (23:12)
[2025-07-21] MEDS ORDERED: HOME MED LIST COMPLETE! XX SCH (23:15)
[2025-07-22] MEDS ORDERED: SUCRALFATE 1 GM TAB PO PRN (03:40)
[2025-07-22] MEDS ORDERED: FLUTICASONE PROPIONATE 0.05% NASAL SPRAY 16 GM NARES PRN (03:40)
[2025-07-22] MEDS: LEVOTHYROXINE 100 MCG TABLET (0.1 MG) PO SCH (06:11)
[2025-07-22 07:08] LABS: BASO # 0.0 10^3/uL (0.0-0.2); BASO % 0.6 % (0.0-1.0); EOS # 0.4 10^3/uL (0.0-0.5); EOS % 7.5 % (0.0-3.0); LYMPH # 0.3 10^3/uL (1.5-5.0); LYMPH % 5.0 % (24.0-44.0); MONO # 0.6 10^3/uL (0.0-0.8); MONO % 11.2 % (2.0-8.0); NEUTROPHILS # 4.1 10^3/uL (1.5-8.5); NEUTROPHILS % 75.1 % (36.0-66.0); PLATELET COUNT, AUTOMATED 107 10^3/uL (150-450)
[2025-07-22 07:35] LABS: INR 4.67
[2025-07-22 07:45] LABS: ALT/SGPT 746.0 U/L (7.0-40); AST/SGOT 378.0 U/L (<34); CALCIUM LEVEL 8.4 MG/DL (8.5-10.1); CARBON DIOXIDE LEVEL 28.0 MMOL/L (20-31); CHLORIDE LEVEL 102.0 MMOL/L (98-107); CREATININE FOR GFR 0.79 MG/DL (0.55-1.30); GLOMERULAR FILTRATION RATE 88.3 (>51); POTASSIUM SERUM 4.1 MMOL/L (3.5-5.1); SODIUM LEVEL 138.0 MMOL/L (136-145)
[2025-07-22] MEDS ORDERED: ONDANSETRON 4MG ORAL DISINTEGRATING TAB PO PRN (10:30)
[2025-07-22] MEDS ORDERED: ALBUTEROL 90 MCG/ACT 8 GM HFA INHALER INH PRN (10:30)
[2025-07-22] MEDS ORDERED: PROCHLORPERAZINE 5MG TAB PO PRN (10:30)
[2025-07-22 12:22] VITALS: BP 109/66
[2025-07-22] MEDS: SPIRONOLACTONE 50 MG TAB PO SCH (12:22)
[2025-07-22] MEDS: NYSTATIN 500,000 UNITS/5 ML SUSP UDC SS SCH (12:25)
[2025-07-22 13:00] VITALS: BP 119/63
[2025-07-22 13:15] VITALS: O2SAT 96
[2025-07-22] MEDS ORDERED: MAGNESIUM OXIDE 400 MG TAB PO SCH (21:00)
[2025-07-22] MEDS ORDERED: MIRALAX *UNIT DOSE* 17 GM PACKET PO SCH (21:00)
[2025-07-22] MEDS ORDERED: FAMOTIDINE 20 MG TAB PO SCH (21:00)
== END 2025-07-22 13:51 | disposition short-term general hospital (02) ==
LOC: M ED 14:23
DX: K72.00 Acute and subacute hepatic failure without coma (principal); R16.2 Hepatomegaly with splenomegaly, not elsewhere classified; K43.9 Ventral hernia without obstruction or gangrene; I86.8 Varicose veins of other specified sites; C83.30 Diffuse large B-cell lymphoma, unspecified site; K86.89 Other specified diseases of pancreas; I10 Essential (primary) hypertension; E66.9 Obesity, unspecified; E03.9 Hypothyroidism, unspecified; M32.9 Systemic lupus erythematosus, unspecified; Z86.711 Personal history of pulmonary embolism; Z88.1 Allergy status to other antibiotic agents; Z88.5 Allergy status to narcotic agent; Z88.8 Allergy status to other drugs, medicaments and biological substances; Z79.52 Long term (current) use of systemic steroids; Z79.02 Long term (current) use of antithrombotics/antiplatelets; Z79.899 Other long term (current) drug therapy; Z79.01 Long term (current) use of anticoagulants
CPT/HCPCS: 36415; 74177; 80053; 82140; 82248; 83605; 85025; 85384; 85610; 85730; 86850; 86900; 86901; 93041; 94760; 99285; J7512; Q9967